=== PATIENT | male | born 1935 | race Caucasian/White ===

== ENCOUNTER → 2016-09-11 | Outpatient (CLI) | payer MEDICARE ==
[2016-06-11 22:29] VITALS: BP 143/73
[~2016-09-11] MED LIST: AMIO200T2 PO; ASPI81TA2 PO; Amoxicillin PO; CARV6.252 PO; CLOP75TA27 PO; CRESTOR20 MG PO; DABI150C PO; DIGO125T PO; EDOX60TA PO; FURO40TA4 PO; LOSA25TA4 PO; METF500T4 PO; METF850T2 PO; MULT1TAB49 PO; OMEG10004 PO; POTA20TA12 PO
--- NOTE | 2016-09-11 11:49 | KCIC ---
Chest PA and lateral Indication: Shortness of air. Time of exam 11:25 a.m. Comparison is made with prior chest from 06/11/2016. The heart is enlarged but stable. There are changes of median sternotomy and CABG. Cardiac defibrillator remains in place. There is central congestion. There is trace pleural fluid. No overt failure is seen. No pneumothorax is identified. Impression: Cardiomegaly and central congestion with trace bilateral pleural effusions. Electronically signed by: Hayder Fernández MD (Sep 11, 2016 11:47:37)
== END | disposition home or self-care (01) ==
LOC: KCIC 11:05
PROVIDERS: ATTEND Specialist
DX: R06.02 Shortness of breath (principal); Z82.49 Family history of ischemic heart disease and other diseases of the circulatory system; I51.7 Cardiomegaly; J90 Pleural effusion, not elsewhere classified
CPT/HCPCS: 71020

== ENCOUNTER 2017-01-23 10:58 | Inpatient (IN) | payer MEDICARE ==
[~2017-01-23] VITALS: Ht 167.6 cm; Wt 66.8 kg
[~2017-01-23 10:58] MED LIST changes: +ASPI-630 PO; -ASPI81TA2 PO; -CLOP75TA27 PO; +CLOP75TA57 PO; -OMEG10004 PO; +[UNRECOGNIZED DRUG - CODE] PO
[2017-01-23] MEDS: INSULIN ASPART 300 UNITS/3 ML INSULN.PEN SQ SCH ×2 (11:30→16:30)
[2017-01-23] MEDS ORDERED: 0.9 % SODIUM CHLORIDE 10 ML DISP.SYRIN. IV PRN (11:30)
[2017-01-23] MEDS ORDERED: FUROSEMIDE 40 MG/4 ML VIAL. IVP ONE ×2 (11:30→16:45)
[2017-01-23] MEDS ORDERED: MAGNESIUM HYDROXIDE 2,400 MG/30 ML ORAL.SUSP. PO PRN (11:30)
[2017-01-23] MEDS ORDERED: ACETAMINOPHEN 325 MG TABLET. PO PRN (11:30)
[2017-01-23 11:45] VITALS: BP 113/76
[2017-01-23] MEDS ORDERED: NITROGLYCERIN SUBLINGUAL 0.4 MG BOTTLE OF 25. SL PRN (11:45)
[2017-01-23] MEDS ORDERED: ANTI-COAG MONITOR BY PHARMACY. MC PRN (12:00)
[2017-01-23] MEDS ORDERED: NITR0.4T22 SL (12:10)
[2017-01-23] MEDS ORDERED: EDOX15TA PO (12:10)
[2017-01-23] MEDS ORDERED: APIX5TAB PO (12:10)
[2017-01-23] MEDS ORDERED: METO25TA9 PO (12:10)
[2017-01-23] MEDS ORDERED: MAGN400T22 PO (12:10)
[2017-01-23] MEDS ORDERED: METO2.5T PO (12:10)
[2017-01-23] MEDS ORDERED: SACU1TAB PO (12:10)
[2017-01-23] MEDS ORDERED: ASPI-482 PO (12:10)
[2017-01-23 12:22] LABS: BASO % 0 % (0-3); EOS % 0 % (0-3); HEMATOCRIT 34.3 % (39.0-53.0); HEMOGLOBIN 10.8 g/dL (13.0-17.5); LYMPH % 6 % (24-48); MEAN CORPUSCULAR HEMOGLOBIN 25 pg (25-35); MEAN CORPUSCULAR HGB CONC 32 g/dL (31-37); MEAN CORPUSCULAR VOLUME 80 fL (79-100); MONO % 5 % (0-9); NEUT % 88 % (31-73); PLATELET COUNT 293 x10^3/uL (140-400); RED BLOOD COUNT 4.28 x10^6/uL (4.30-5.70); RED CELL DISTRIBUTION WIDTH 20.3 % (11.5-14.5); WHITE BLOOD COUNT 15.5 x10^3/uL (4.0-11.0)
[2017-01-23] MEDS: MULTIVITAMIN with MINERAL TABLET. PO SCH (12:30)
[2017-01-23] MEDS ORDERED: CLOPIDOGREL BISULFATE 75 MG TABLET PO SCH (12:30)
[2017-01-23] MEDS: OMEGA-3 FATTY ACIDS/FISH OIL 1,000 MG CAPSULE. PO SCH (12:30)
[2017-01-23] MEDS ORDERED: APIXABAN 5 MG TABLET. PO SCH (12:30)
[2017-01-23] MEDS ORDERED: ASPIRIN ENTERIC COATED 81 MG TABLET.DR. PO SCH (12:30)
[2017-01-23] MEDS ORDERED: POTASSIUM CHLORIDE 20 MEQ TABLET.ER. PO SCH (12:30)
[2017-01-23] MEDS ORDERED: SACUBITRIL/VALSARTAN 24/26MG TABLET. PO SCH ×2 (12:30→21:00)
[2017-01-23 12:38] LABS: ALBUMIN 3.7 g/dL (3.4-5.0); ALBUMIN/GLOBULIN RATIO 0.9 (1.0-1.7); CALCIUM 9.8 mg/dL (8.5-10.1); CREATININE 4.4 mg/dL (0.7-1.3); MAGNESIUM 3.2 mg/dL (1.8-2.4); POTASSIUM 4.6 mmol/L (3.5-5.1); TOTAL BILIRUBIN 1.1 mg/dL (0.2-1.0); TOTAL PROTEIN 7.7 g/dL (6.4-8.2)
[2017-01-23 13:13] LABS: ANISOCYTOSIS MOD; PLT ESTIMATE ADEQUATE (ADEQUATE)
[2017-01-23] MEDS ORDERED: FUROSEMIDE 40 MG/4 ML VIAL. IVP SCH (14:00)
--- NOTE | 2017-01-23 14:08 | RAD ---
Indication shortness of breath. PA and lateral views of the chest were obtained and are compared to an examination 09/11/2016. Postoperative changes are noted. There is a bipolar defibrillating and cardiac pacing device. In contrast to the previous exam there is now a moderate right pleural effusion. There is unchanged cardiomegaly. An acute finding in the left hemithorax is not seen. IMPRESSION: Moderate right pleural effusion.
[2017-01-23 15:00] VITALS: BP 131/71
--- NOTE | 2017-01-23 15:32 | RAD ---
Indication acute renal failure. Grayscale imaging of the kidneys was performed. No similar imaging is available. The right kidney measures 12.1 x 4.8 x 5.1 cm. No hydronephrosis or mass is seen. The urinary bladder appears grossly normal. The left kidney measures 11.7 x 4.5 x 5.5 cm. No hydronephrosis or mass is seen. IMPRESSION: Normal morphologic appearance of the kidneys
--- NOTE | 2017-01-23 15:35 | PDOC ---
Provider Note Provider Note dictated needs right tap. needs to hold plavix and elliquis cannot do until saturday unless emergency BABATUNDE THEODORE MD Jan 23, 2017 15:35
[2017-01-23] MEDS: METOPROLOL SUCC 24HR ER 50 MG TAB.ER.24H. PO SCH (15:44)
--- NOTE | 2017-01-23 17:09 | CONS ---
DATE OF CONSULTATION: ATTENDING PHYSICIAN: Dr. Alfred Norris. REASON FOR CONSULTATION: Dyspnea and pleural effusion. HISTORY OF PRESENT ILLNESS: The patient is an 82-year-old male with history of severe cardiomyopathy with an EF of 10-15%. He has history of coronary artery bypass grafting, history of colon cancer and had chemo. The patient presented to the hospital with several months of increasing progressive shortness of breath, which worsened in the last 1 week. He has increasing lower extremity edema. He also has a cough with some mild blood-tinged sputum and yellow sputum. No fever, no chills. No chest pains. He was seen in the hospital with a chest x-ray showing moderate right-sided pleural effusion, which has increased since before along with cardiomegaly and congestive changes. As a result, he is hospitalized for further evaluation. He is requiring 2 liters of oxygen. PAST MEDICAL HISTORY: Significant for history of CAD, history of cardiomyopathy which is severe with an EF of 10-15%, history of dyslipidemia, VA, history of colon cancer, history of chemo. PAST SURGICAL HISTORY: Cholecystectomy, coronary artery bypass surgery, history of pacemaker defibrillator. REVIEW OF SYSTEMS: Twelve-point system obtained. Pertinent positives discussed in history of present illness, otherwise noncontributory. All systems that were negative were reviewed as well. SOCIAL HISTORY: Nonsmoker. Lives at home with family. MEDICATIONS: All reviewed as listed in the MRAD including his Plavix and Eliquis. PHYSICAL EXAMINATION: GENERAL: He is awake, resting comfortably. VITAL SIGNS: Blood pressure of 131/71, pulse ox 92% on 2 liters, afebrile. HEENT: Sclerae are nonicteric. NECK: Supple. LUNGS: Diminished breath sounds in the right base. CARDIOVASCULAR: Regular rate and rhythm. ABDOMEN: Soft, obese, distended. EXTREMITIES: Bilateral 2+ pitting edema. LABORATORY DATA: Reviewed. White cell count 15.5, hemoglobin 10.8, platelets are 293. BUN is 79 and a creatinine of 4.4. ProBNP is 14,308, bicarbonate is 25. IMPRESSION: 1. Acute hypoxic respiratory failure secondary to acute on chronic systolic heart failure and moderate-sized right pleural effusion. 2. 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 3. No significant history of tobacco use. 4. Acute on chronic renal failure. Suspect secondary to poor cardiac pump function. RECOMMENDATIONS: 1. Discussed with the patient and the family. He would benefit from thoracentesis. We will arrange to do CT-guided. He is on Eliquis and Plavix. I spoke with Interventional Radiology, and we have to hold Eliquis at least 48 hours and Plavix for at least 4 days. The patient's procedure will be scheduled on Saturday. 2. Follow Cardiology recommendations. 3. Follow renal recommendations. His urine output has decreased and may end up on dialysis. He has become refractory to Lasix. 4. He probably has acute bronchitis as well and I will add empiric antibiotics. 5. Further recommendations to follow. BABATUNDE THEODORE MD DR: GENOVEVA/chet JOB#: [id number] / [id number]
[2017-01-23] MEDS ORDERED: AZITHROMYCIN 250 MG TABLET. PO ONE (18:00)
[2017-01-23] MEDS: LINEZOLID 600 MG TABLET PO SCH (18:21)
[2017-01-23] MEDS: PIPERACILLIN/TAZOBACTAM 2.25 GM in IV NORMAL SALINE 50ML 50 ML IV SCH (18:21)
[2017-01-23 19:05] VITALS: BP 114/57
[2017-01-23] MEDS ORDERED: MAGNESIUM OXIDE 400 MG TABLET PO SCH (21:00)
[2017-01-23] MEDS ORDERED: ATORVASTATIN CALCIUM 40 MG TABLET. PO SCH (21:00)
[2017-01-23] MEDS: MONTELUKAST SODIUM 10 MG TABLET. PO SCH (21:13)
[2017-01-23 23:05] VITALS: BP 119/62
[2017-01-24] VITALS (13 sets, daily range): BP systolic 86–121; BP diastolic 57–63
[2017-01-24] MEDS: PIPERACILLIN/TAZOBACTAM 2.25 GM in IV NORMAL SALINE 50ML 50 ML IV SCH ×4 (01:26→21:23)
--- NOTE | 2017-01-24 05:19 | CONS ---
DATE OF CONSULTATION: 01/23/2017 HISTORY OF PRESENT ILLNESS: This is an 81-year-old white male who saw his primary care physician for shortness of breath. He appeared to be very short of breath despite extra Lasix. Also his creatinine had gone up. I last saw him in the office on 12/27/2016. At that time, he complained of no shortness of breath. He had no swelling of his legs. He had been taking the Lasix twice a day and metolazone 2.5 mg twice a week. He had also been on Entresto since 10/15/2016. I am quoting the BUN and creatinine done mostly in my office with [facility]. There is also one result from Dr. Norris's office. Thus I want to show that despite Entresto and the diuretics, his creatinine had been stable until recently. On 09/10/2016, BUN was 31, creatinine was 1.61. On 10/11/2016, BUN was 26, creatinine was 1.68. Entresto was initiated on 10/15/2016. On 11/07/2016, BUN was 33 and creatinine was 1.58. Recently on 12/27/2016, when I last saw him, having been on Entresto for 6 weeks and on metolazone for about 2 or 3 weeks, his BUN was 33 and creatinine was 1.72. I have not seen him in the last one month. I therefore do emphasize the point that he has taken a turn for the worse in the last one month. He is very short of breath. He has significant orthopnea and paroxysmal nocturnal dyspnea. He has had swelling of the legs that have been worse than what it was when he came in to the hospital and he had taken extra Lasix and the swelling has gone down. Thus for some reason, he has taken a turn for the worse. When he came in on 12/27/2016, he brought all of his medications and I wrote them down from the bottles he brought. It was as follows, 1. Atorvastatin 40 mg at night. 2. Metformin 850 mg twice a day, which since then has been discontinued. 3. Singulair 10 mg a day. 4. Plavix 75 mg a day, which was initiated in 10/2015 after he had a non-ST elevation myocardial infarction and the intention was to keep him on it for about a year. 5. Potassium chloride 20 mEq a day. Please note that the potassium has remained stable. 6. Magnesium oxide 400 mg twice a day. Please also note that the magnesium level has been alright. He has been getting the magnesium because he has had a few episodes of ventricular tachycardia on interrogating the pacemaker. 7. Furosemide 40 mg twice a day. 8. Carvedilol 3.125 mg twice a day. 9. Eliquis 5 mg twice a day. He is to have decreased this to 2.5 mg twice a day since he had turned 81 and since his creatinine was more than 1.5. Until then, he had only one criteria of the creatinine, not quite his age or his weight. 10. Metoprolol succinate ER 50 mg at night. 11. Amiodarone 200 mg a day for having been in and out of atrial fibrillation in 2016. 12. Aspirin 81 mg a day. 13. Entresto twice a day since 10/15/2016. 14. Chintan silva PAST MEDICAL HISTORY: To recapitulate his history until now, In 1982, he sustained an acute inferior wall myocardial infarction. He underwent coronary arteriograms. He was found to have triple vessel disease. He then underwent open heart surgery with vein graft to the LAD and the diagonal, vein graft to the OM and a vein graft to the right coronary artery. In 2010, he had done very well over about 20 years. He then came in with chest pain. He was found to have occluded vein graft to the LAD. He then underwent a second open heart surgery in 2010 at which time a DICKERSON was placed to the LAD to the diagonal. He has an EF, which had been normal in 1982, had dropped to 40% in 2010. In 2012, he came in with paroxysmal atrial tachycardia and underwent coronary arteriograms. The SVG to the right coronary artery was totally occluded and the vein graft to the right coronary artery was also totally occluded. His EF dropped further to 30%. In 10/2015, while he was at the [facility], he developed chest pain and sustained a non-ST segment elevation myocardial infarction with a troponin going up as high as 27. He underwent coronary arteriograms. I do not have the results of this. However, he was told that there was no lesion that was amenable to percutaneous intervention. He was also told that the EF dropped to 10-15% and he was advised AICD. He chose not to have the AICD there, but came back to [place]. On 12/05/2015, he underwent placement of an AICD. His QRS complexes were narrow and he was in sinus rhythm. In 04/2016, he underwent cardiac catheterization. The DICKERSON to the LAD was patent. The vein graft to the circumflex coronary artery was patent. The vein graft to the right coronary artery and the ____ coronary artery was totally occluded. His EF continued to be down at 15-20%. He had good collaterals from the left to the right. His BUN at that time was 22, creatinine was 1.2. In 05/2016, bedside pacemaker monitor picked up atrial fibrillation. I had him come to the office. He was very active then and had plans to go to the [facility], but reluctantly came to my office. I gave him samples of anticoagulation and I asked him to come back and see me after he returned. Thus he was very active in May 2016. In 08/2016, he went back to the [facility]. He said he went to [facility] and was able to walk up from the bottom of the alhambra to the top of the alhambra despite his low EF. 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 All of this has markedly changed in the last one month and is now a totally different person. He has had a cholecystectomy. He has had cancer of the colon and has undergone partial colectomy. He also received some chemotherapy, I believe, and of course he has had the two open heart surgeries as described above and placement of the AICD. When I checked in 12/2012, he had a normal QRS complex 60% of the times and a broad QRS complex only 40% of the times. Even though we considered placing a Bi-V pacemaker at that time, he was not yet a candidate for it. He lives at home. He has two very supportive daughters. His has severe Alzheimer's and resides in a alf. He had been going there regularly every afternoon or evening to give her her lunch and dinner. As far as his diet goes, he has not always been compliant. We talked to him several times about his salt restriction, but lately he has been quite compliant. He was not prior to that. However, he did admit that he had a fairly high salt diet recently. He does not smoke or take alcohol. The medication list that he brought is somewhat similar to what he had brought to my office. However, there are some discrepancies in the medication list given during this hospitalization. When I saw him on 12/27/2016, it was from his bottles. He has been seeing Dr. Norris. Dr. Norris has probably made some changes in between namely discontinuing the metformin that he needed to, discontinuing the Entresto that I totally agree with. The patient has been saying that he has been having visual hallucinations. He reaches out for things that are not present and certainly not within his reach. He has had no auditory hallucinations. Even when he came in December, he had indicated to me that he is very restless at night and does not sleep well. At that time, he said that his inability to sleep was not due to orthopnea, but due to other reasons. He says he has had nocturnal desaturation study done at home, but he does not know the results. PHYSICAL EXAMINATION: GENERAL: On examination, he is obviously short of breath and tachypneic. Normally, he is very conversant, but he was not talking much. VITAL SIGNS: The heart rate was 70 per minute and regular. The blood pressure is 110/70. LUNGS: Showed decreased breath sounds on the right side. There is no wheezing. HEART: The heart sounds are normal. There is no murmur or gallop. ABDOMEN: Mildly distended. There is no right upper quadrant tenderness. There were no masses. EXTREMITIES: Of note is the fact that is for the first time I see such significant 3-4+ pitting edema of his feet and leg and into his thigh. Chest x-ray showed pulmonary vascular congestion and at least a moderate sized right pleural effusion. The last chest x-ray which was in 08/2016 had shown some central congestion and just a trace pleural effusion. Thus, this is a significant change from before. An EKG has not been done ____. On the monitor, he is in sinus rhythm with a wide QRS complex and he appears to be in a wide QRS complex 100% of the time as opposed to 40% in 12/2016. Thus, as I stated above, there has been a dramatic change in his status since 12/2015. The chronic combined congestive heart failure that he has had has now become acute in the last 2 or 3 weeks. He had an EF of 10-15% with his last echocardiogram and grade 3 diastolic dysfunction in the last echocardiogram. There was also moderate mitral regurgitation. IMPRESSION AND PLAN: 1. Acute on chronic congestive heart failure since the last one month, etiology unclear. Consider pneumonia as one of the precipitating cause because of his leukocytosis and he has already been started on antibiotics by the flame degreaser. Pulmonary embolism is probably unlikely because of the fact that he has been taking his anticoagulants, though he does get confused and there was a period of time in December that he had failed to refill his prescription. We will thus obtain a venous Doppler. Myocardial ischemia is a possibility. The coronary arteriogram is totally out of the question because of his creatinine of 4.4. With his low EF and known severe coronary artery disease, myocardial perfusion imaging study with technetium would probably be of little benefit. Doing a SPECT for myocardial ischemia may be more sensitive, but we do not have the facility to do that. 2. Worsening renal failure of recent onset, could be due to the lower cardiac output than before. We will check an echocardiogram to see what his EF is at the present time and also check his cardiac output. 3. Metabolic encephalopathy with visual hallucinations probably due to the low cardiac output. 4. History of atrial fibrillation, now in sinus rhythm. 5. He appears to be 100% paced at the present time. We will have interrogate his pacemaker to see what is the percentage of the ventricular pacing and we will also know what is his atrial fibrillation burden. 6. Possible pulmonary infection. PLAN: 1. Obtain an echocardiogram tomorrow. He will be evaluated by Nephrology. His renal sonogram was not significantly abnormal. There is also no significant urinary retention and I do not believe he has been taking NSAIDs though with his mental status and his memory being poor, I cannot quite rely on what he remembers. 2. Has been seen by flame degreaser and antibiotics have been initiated. Also arrangements have been made for him to have a thoracentesis on 01/28/2017. The Eliquis and the Plavix can certainly be held as also the aspirin. 3. After measuring the EF and the cardiac output, he will be started on inotropic agent in the form of dobutamine to see whether diuresis can be accomplished without a significant increase in his BUN and creatinine. 4. He certainly now qualifies for upgrade to a Bi-V AICD. Dr. Levy has agreed to do it and he may be able to do it on 01/25/2017. I have talked to the family. I have informed them that there has been a significant deterioration in his condition and there probably will not be a simple answer as before of a quick IV diuresis and sending him home. He might have come to the point of considering an LVAD. I am not sure whether he would be accepted for it. He would need a lot of support to be able to go home with the LVAD and I do not think he can manage it with his mental status and him living alone. I do believe he is not a good candidate for the LVAD. However, we would be able to manage his status by closer surveillance with home health the monitoring his CHF and medications. Thank you for asking me to see him. MELINDA FORTUNE MD DR: [email or web address]/chet JOB#: [id number] / [id number]
[2017-01-24 05:44] LABS: BASO # 0.1 x10^3/uL (0.0-0.2); BASO % 1 % (0-3); EOS % 0 % (0-3); HEMATOCRIT 31.6 % (39.0-53.0); HEMOGLOBIN 10.2 g/dL (13.0-17.5); LYMPH # 0.8 x10^3/uL (1.0-4.8); LYMPH % 6 % (24-48); MEAN CORPUSCULAR HEMOGLOBIN 26 pg (25-35); MEAN CORPUSCULAR HGB CONC 32 g/dL (31-37); MEAN CORPUSCULAR VOLUME 80 fL (79-100); MONO % 5 % (0-9); NEUT % 89 % (31-73); PLATELET COUNT 258 x10^3/uL (140-400); RED BLOOD COUNT 3.94 x10^6/uL (4.30-5.70); RED CELL DISTRIBUTION WIDTH 19.9 % (11.5-14.5); WHITE BLOOD COUNT 12.9 x10^3/uL (4.0-11.0)
[2017-01-24 06:12] LABS: CALCIUM 9.5 mg/dL (8.5-10.1); CREATININE 5.1 mg/dL (0.7-1.3); POTASSIUM 5.8 mmol/L (3.5-5.1)
--- NOTE | 2017-01-24 06:24 | EKG ---
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 ABNORMAL ECG RI6.01 Electronically Signed On 01-28-2017 9:45:08 CDT by Kayode Eastman
[2017-01-24] MEDS ORDERED: CLOPIDOGREL BISULFATE 75 MG TABLET PO SCH (08:00)
--- NOTE | 2017-01-24 08:24 | PDOC ---
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 ARF WILNER ATN diuretics with underlying CKD II 3. R moderate pleural effusion 4. metabolic encephalopathy 5. leukocytosis w/o fever 6. Coronary artery disease. with h/o stent/CABG 7. History of myocardial infarction.>8wk 7. Hyperlipidemia. 8. History of colon cancer with colon resection. 9. Diabetes mellitus type 2, not controlled. poor compliance with diet 10. AFchronic eliquis AICD 11. mod MR 12. HTN 13. hyperkalemia PLAN: a/c CHF Lasix 40mg IV x1 cardiology consult daily wt IO admit wt not obtained 01/24 154.4# BNP 74679 edema LE-venous doppler report pending ARF WILNER ATN nephrology consult renal US negative Admit Na 137 01/24 136 K 4.6 5.8 BUN 79 96 Cr 4.4 5.1 Mg 3.2 Procalcitonin 0.23 may need dialysis KCL and Mg replacements stopped Dyspnea multifactorial pulmonary consult Acute bronchitis pleural effusion-thoracentesis planned -eliquis needs held for 48h prior to procedure WBC 15.5 01/24 12.9 ID consult empiric antibiotics: zithromax x1, zosyn IV , Zyvox po. nebulizer treatments abnormal TSH acute illness-re eval OP in 2-3 months AF Eliquis stopped prior to thoracentesis-resume post procedure CAD ASA and Plavix discontinued-resume post procedure metabolic encephalopathy monitor DVT/GI prophylaxis SCD/ELEUTERIO PPI For further plan of care, please refer to the orders. TOM FOSTER MD 01/24/17 1054: Provider Note Provider Note The patient was seen and examined by me. Chart reviewed and plan of care formulated. Discussed with, reviewed and agree with [employer]'s notes, plan of care and orders with modifications as necessary. For more details regarding further plans, please refer to the orders. D/w patient,.Will need dialysis. NEVA LOONEY APRN Jan 24, 2017 08:24 TOM FOSTER MD Jan 24, 2017 10:54
[2017-01-24] MEDS: MULTIVITAMIN with MINERAL TABLET. PO SCH (09:01)
[2017-01-24] MEDS: OMEGA-3 FATTY ACIDS/FISH OIL 1,000 MG CAPSULE. PO SCH (09:02)
[2017-01-24] MEDS: METOPROLOL SUCC 24HR ER 50 MG TAB.ER.24H. PO SCH (09:02)
[2017-01-24] MEDS: LINEZOLID 600 MG TABLET PO SCH ×2 (09:02→21:21)
[2017-01-24] MEDS: INSULIN ASPART 300 UNITS/3 ML INSULN.PEN SQ SCH ×3 (09:05→16:30)
--- NOTE | 2017-01-24 09:09 | RAD ---
Bilateral lower extremity venous duplex study 01/24/2017 Clinical history: Bilateral leg swelling. Technique: Using a combination of real time ultrasound imaging and color-flow and pulse Doppler imaging techniques along with graded compression and augmentation, duplex evaluation of the deep venous system of the both lower extremities was performed. Multiple images were obtained. Findings: There is no sonographic evidence of deep venous thrombosis involving the visualized deep venous structures of either lower extremity. Impression: Negative study.
--- NOTE | 2017-01-24 11:46 | PDOC2 ---
CONSULT Date of Consult Date of Consult DATE: 01/24/17 TIME: 11:38 Reason for Consult Reason for Consult: WILNER Referring Physician Referring Physician: CRISTIAN Identification/Chief Complaint Chief Complaint SOB AND SWELLING Problems: Source Source: Chart review, Patient History of Present Illness Reason for Visit: THIS IS AN 81 YR OLD ADMITTED WITH SOB AND LE EDEMA WHICH HAS BEEN PROGRESSIVE. CR IS 5.1 WITH A K OF 5.8. OLD RECORDS SHOWED A CR OF 1.5-2.0 FROM EARLIER THIS YEAR. 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 HX NOTABLE FOR CM WITH AN EF OF 10-15% AND SEVERE CAD. HE ALSO HAS A PPM. DENIED ANY KNOWLEDGE OF CKD. NO HX OF ANY KIDNEY OR BLADDER SURGERIES HEMATURIA DYSURIA NOTED. NO SIGNIFICANT NSAID ABUSE HX. HE HAS SOME FREQUENCY AND NOCTURIA TWICE OR THRICE Past Medical History Cardiovascular: CAD, CHF, HTN, NH, Hyperlipidemia Renal/: Chronic renal insuff Endocrine: Diabetes Past Surgical History Past Surgical History: Cholecystectomy, Colon Resection Current Medications Current Medications Current Medications Sodium Chloride (Normal Saline Flush) 3 ml PRN DAILY PRN IV AFTER MEDS AND BLOOD DRAWS; Start 01/23/17 at 11:30 Acetaminophen (Tylenol) 650 mg PRN Q6HRS PRN PO Headaches, Temp > 101.5F; Start 01/23/17 at 11:30 Magnesium Hydroxide (Milk Of Magnesia) 2,400 mg PRN Q12HR PRN PO CONSTIPATION; Start 01/23/17 at 11:30 Furosemide (Lasix) 40 mg BID92 IVP ; Start 01/23/17 at 14:00; Stop 01/23/17 at 14: 35; Status DC Insulin Aspart (NovoLOG) TIDAC SQ Last administered on 01/24/17 09:05; Start 01/23/17 at 11:30 Furosemide (Lasix) 40 mg 1X ONCE IVP ; Start 01/23/17 at 11:30; Stop 01/23/17 at 14:35; Status DC Clopidogrel Bisulfate (Plavix) 75 mg DAILY PO ; Start 01/23/17 at 12:30; Stop 01/23/17 at 20:26; Status DC Potassium Chloride (Klor-Con) 20 meq DAILY PO Last administered on 01/23/17 15: 45; Start 01/23/17 at 12:30; Stop 01/24/17 at 08:19; Status DC Fish Oil (Fish Oil) 1,000 mg DAILY PO Last administered on 01/24/17 09:02; Start 01/23/17 at 12:30 Atorvastatin Calcium (Lipitor) 80 mg QHS PO Last administered on 01/23/17 21:12 ; Start 01/23/17 at 21:00; Stop 01/24/17 at 08:19; Status DC Clopidogrel Bisulfate (Plavix) 75 mg DAILYWBKFT PO ; Start 01/24/17 at 08:00; Status UNV Apixaban (Eliquis) 5 mg BID PO ; Start 01/23/17 at 12:30; Stop 01/23/17 at 20:26; Status DC Metoprolol Succinate (Toprol Xl) 50 mg DAILY PO Last administered on 01/24/17 09:02; Start 01/23/17 at 12:30 Montelukast Sodium (Singulair) 10 mg QHS PO Last administered on 01/23/17 21:13 ; Start 01/23/17 at 21:00 Nitroglycerin (Nitrostat) 0.4 mg PRN Q5MIN PRN SL CHEST PAIN; Start 01/23/17 at 11:45 Magnesium Oxide (Magnesium Oxide) 400 mg BID PO Last administered on 01/23/17 21:00; Start 01/23/17 at 21:00; Stop 01/24/17 at 08:19; Status DC Aspirin (Ecotrin) 81 mg DAILYWBKFT PO ; Start 01/23/17 at 12:30; Stop 01/23/17 at 20:26; Status DC Multivitamins (Thera M Plus) 1 tab DAILY PO Last administered on 01/24/17 09: 01; Start 01/23/17 at 12:30 Sacubitril/ Valsartan (Entresto 24 Mg-26 Mg) 1 tab BID PO ; Start 01/23/17 at 12: 30; Stop 01/23/17 at 14:35; Status DC Info (Anti-Coagulation Monitoring By Pharmacy) 1 each PRN DAILY PRN MC SEE COMMENTS; Start 01/23/17 at 12:00; Stop 01/23/17 at 20:26; Status DC Sacubitril/ Valsartan (Entresto 24 Mg-26 Mg) 1 tab BID PO ; Start 01/23/17 at 21: 00; Status UNV Furosemide (Lasix) 40 mg 1X ONCE IVP Last administered on 01/23/17 16:45; Start 01/23/17 at 16:45; Stop 01/23/17 at 16:46; Status DC Piperacillin Sod/ Tazobactam Sod 2.25 gm/Sodium Chloride 50 ml @ 100 mls/hr Q8HRS IV Last administered on 01/24/17 06:20; Start 01/23/17 at 18:00 Linezolid (Zyvox) 600 mg BID PO Last administered on 01/24/17 09:02; Start 01/23/17 at 18:30 Azithromycin (Zithromax) 500 mg 1X ONCE PO Last administered on 01/23/17 18:21 ; Start 01/23/17 at 18:00; Stop 01/23/17 at 18:01; Status DC Atorvastatin Calcium (Lipitor) 40 mg QHS PO ; Start 01/24/17 at 21:00 Active Scripts Active Amiodarone Hcl 200 Mg Tablet 200 Mg PO TID Reported Metolazone 2.5 Mg Tablet 2.5 Mg PO SATURDAY -SATURDAY PRN Entresto 24 mg-26 mg Tablet (Sacubitril/Valsartan) 1 Each Tablet 1 Each PO BID Aspir 81 (Aspirin) 81 Mg Tablet.dr 81 Mg PO Mag-Oxide (Magnesium Oxide) 400 Mg Tablet 1 Tab PO BID NITROGLYCERIN SubLingual (Nitroglycerin) 0.4 Mg Tab.subl 0.4 Mg SL PRN Q5MIN PRN Metoprolol Succinate ( Xl ) (Metoprolol Succinate) 25 Mg Tab.er.24h 50 Mg PO DAILY Eliquis (Apixaban) 5 Mg Tablet 5 Mg PO BID Savaysa (Edoxaban Tosylate) 60 Mg Tablet 60 Mg PO QHS [place]-3 Fish Oil 1,000 Mg Sfgl ([place]-3/Dha/Epa/Fish Oil) 1,000 Mg Capsule 1, 000 Mg PO DAILY Metformin Hcl 850 Mg Tablet 850 Mg PO BIDWMEALS Plavix (Clopidogrel Bisulfate) 75 Mg Tablet 75 Mg PO DAILY Crestor (Rosuvastatin Calcium) 20 Mg Tablet 20 Mg PO HS Losartan Potassium 25 Mg Tablet 50 Mg PO DAILY Furosemide 40 Mg Tablet 40 Mg PO DAILY Potassium Chloride 20 Meq Tab.er.prt 20 Meq PO DAILY Allergies Allergies: Coded Allergies: No Known Drug Allergies (Unverified , 07/05/15) ROS General: YES: Fatigue, Malaise, Appetite PSYCHOLOGICAL ROS: YES: Anxiety Eyes: Yes Decreased vision HEENT: YES: Heacaches Respiratory: YES: Cough, Orthopnea, Shortness of breath, SOB with excertion Cardiovascular: yes Edema Gastrointestinal: Yes Constipation Genitourinary: YES Frequency, YES Other (NOCTURIA) Musculoskeletal: Yes Muscular Weakness Neurological: Yes Weakness Skin: Yes Dry Skin, Yes Skin Lesion Changes Physical Exam General: Alert, Oriented X3, Cooperative, No acute distress HEENT: Atraumatic, PERRLA Lungs: Other (DECREASED AT BASES) Heart: Gallops, Other (PACED ) Abdomen: Normal bowel sounds, Soft, No tenderness Extremities: No clubbing, No edema Neuro: Normal speech, Sensation intact, Cranial nerves 3-12 NL Psych/Mental Status: Mental status NL, Mood NL MUSCULOSKELETAL: No deformity, Other (2+ LE EDEMA) Vitals VITALS Vital Signs Date Time Temp Pulse Resp B/P (MAP) Pulse Ox O2 Delivery O2 Flow Rate FiO2 01/24/17 11:00 97.8 62 20 97/58 (71) 94 Room Air 97.8 01/24/17 08:09 2.0 Labs Labs Laboratory Tests Test 01/23/17 12:05 01/23/17 12:26 01/23/17 17:35 01/23/17 20:40 White Blood Count 15.5 x10^3/uL (4.0-11.0) Red Blood Count 4.28 x10^6/uL (4.30-5.70) Hemoglobin 10.8 g/dL (13.0-17.5) Hematocrit 34.3 % (39.0-53.0) Mean Corpuscular Volume 80 fL (79-100) Mean Corpuscular Hemoglobin 25 pg (25-35) Mean Corpuscular Hemoglobin Concent 32 g/dL (31-37) Red Cell Distribution Width 20.3 % (11.5-14.5) Platelet Count 293 x10^3/uL (140-400) Neutrophils (%) (Auto) 88 % (31-73) Lymphocytes (%) (Auto) 6 % (24-48) Monocytes (%) (Auto) 5 % (0-9) Eosinophils (%) (Auto) 0 % (0-3) Basophils (%) (Auto) 0 % (0-3) Neutrophils # (Auto) 13.6 x10^3uL (1.8-7.7) Lymphocytes # (Auto) 1.0 x10^3/uL (1.0-4.8) Monocytes # (Auto) 0.8 x10^3/uL (0.0-1.1) Eosinophils # (Auto) 0.0 x10^3/uL (0.0-0.7) Basophils # (Auto) 0.0 x10^3/uL (0.0-0.2) Segmented Neutrophils % 94 % (35-66) Lymphocytes % 3 % (24-48) Monocytes % 3 % (0-10) Platelet Estimate Adequate (ADEQUATE) Anisocytosis Mod Sodium Level 137 mmol/L (136-145) Potassium Level 4.6 mmol/L (3.5-5.1) Chloride Level 96 mmol/L (98-107) Carbon Dioxide Level 25 mmol/L (21-32) Anion Gap 16 (6-14) Blood Urea Nitrogen 79 mg/dL (8-26) Creatinine 4.4 mg/dL (0.7-1.3) Estimated GFR (Cockcroft-Gault) 13.0 BUN/Creatinine Ratio 18 (6-20) Glucose Level 133 mg/dL (70-99) Calcium Level 9.8 mg/dL (8.5-10.1) Magnesium Level 3.2 mg/dL (1.8-2.4) Total Bilirubin 1.1 mg/dL (0.2-1.0) Aspartate Amino Transf (AST/SGOT) 14 U/L (15-37) Alanine Aminotransferase (ALT/SGPT) 19 U/L (16-63) Alkaline Phosphatase 98 U/L (46-116) EP-Bfa-A-Type Natriuretic Peptide 02349 pg/mL (0-449) Total Protein 7.7 g/dL (6.4-8.2) Albumin 3.7 g/dL (3.4-5.0) Albumin/Globulin Ratio 0.9 (1.0-1.7) Procalcitonin 0.23 ng/mL (0.00-0.10) Glucose (Fingerstick) 122 mg/dL (70-99) 175 mg/dL (70-99) 186 mg/dL (70-99) Test 01/24/17 05:30 01/24/17 08:59 White Blood Count 12.9 x10^3/uL (4.0-11.0) Red Blood Count 3.94 x10^6/uL (4.30-5.70) Hemoglobin 10.2 g/dL (13.0-17.5) Hematocrit 31.6 % (39.0-53.0) Mean Corpuscular Volume 80 fL (79-100) Mean Corpuscular Hemoglobin 26 pg (25-35) Mean Corpuscular Hemoglobin Concent 32 g/dL (31-37) Red Cell Distribution Width 19.9 % (11.5-14.5) Platelet Count 258 x10^3/uL (140-400) Neutrophils (%) (Auto) 89 % (31-73) Lymphocytes (%) (Auto) 6 % (24-48) Monocytes (%) (Auto) 5 % (0-9) Eosinophils (%) (Auto) 0 % (0-3) Basophils (%) (Auto) 1 % (0-3) Neutrophils # (Auto) 11.5 x10^3uL (1.8-7.7) Lymphocytes # (Auto) 0.8 x10^3/uL (1.0-4.8) Monocytes # (Auto) 0.6 x10^3/uL (0.0-1.1) Eosinophils # (Auto) 0.0 x10^3/uL (0.0-0.7) Basophils # (Auto) 0.1 x10^3/uL (0.0-0.2) Sodium Level 136 mmol/L (136-145) Potassium Level 5.8 mmol/L (3.5-5.1) Chloride Level 96 mmol/L (98-107) Carbon Dioxide Level 25 mmol/L (21-32) Anion Gap 15 (6-14) Blood Urea Nitrogen 96 mg/dL (8-26) Creatinine 5.1 mg/dL (0.7-1.3) Estimated GFR (Cockcroft-Gault) 11.0 Glucose Level 160 mg/dL (70-99) Calcium Level 9.5 mg/dL (8.5-10.1) Triglycerides Level 98 mg/dL (0-150) Cholesterol Level 77 mg/dL (0-200) LDL Cholesterol, Calculated 31 mg/dL (0-100) VLDL Cholesterol, Calculated 20 mg/dL (0-40) Non-HDL Cholesterol Calculated 51 mg/dL (0-129) HDL Cholesterol 26 mg/dL (40-60) Cholesterol/HDL Ratio 3.0 Thyroid Stimulating Hormone (TSH) 5.398 uIU/mL (0.358-3.74) Glucose (Fingerstick) 168 mg/dL (70-99) Laboratory Tests Test 01/23/17 12:05 01/23/17 12:26 01/23/17 17:35 01/23/17 20:40 White Blood Count 15.5 x10^3/uL (4.0-11.0) Red Blood Count 4.28 x10^6/uL (4.30-5.70) Hemoglobin 10.8 g/dL (13.0-17.5) Hematocrit 34.3 % (39.0-53.0) Mean Corpuscular Volume 80 fL (79-100) Mean Corpuscular Hemoglobin 25 pg (25-35) Mean Corpuscular Hemoglobin Concent 32 g/dL (31-37) Red Cell Distribution Width 20.3 % (11.5-14.5) Platelet Count 293 x10^3/uL (140-400) Neutrophils (%) (Auto) 88 % (31-73) Lymphocytes (%) (Auto) 6 % (24-48) Monocytes (%) (Auto) 5 % (0-9) Eosinophils (%) (Auto) 0 % (0-3) Basophils (%) (Auto) 0 % (0-3) Neutrophils # (Auto) 13.6 x10^3uL (1.8-7.7) Lymphocytes # (Auto) 1.0 x10^3/uL (1.0-4.8) Monocytes # (Auto) 0.8 x10^3/uL (0.0-1.1) Eosinophils # (Auto) 0.0 x10^3/uL (0.0-0.7) Basophils # (Auto) 0.0 x10^3/uL (0.0-0.2) Segmented Neutrophils % 94 % (35-66) Lymphocytes % 3 % (24-48) Monocytes % 3 % (0-10) Platelet Estimate Adequate (ADEQUATE) Anisocytosis Mod Sodium Level 137 mmol/L (136-145) Potassium Level 4.6 mmol/L (3.5-5.1) Chloride Level 96 mmol/L (98-107) Carbon Dioxide Level 25 mmol/L (21-32) Anion Gap 16 (6-14) Blood Urea Nitrogen 79 mg/dL (8-26) Creatinine 4.4 mg/dL (0.7-1.3) Estimated GFR (Cockcroft-Gault) 13.0 BUN/Creatinine Ratio 18 (6-20) Glucose Level 133 mg/dL (70-99) Calcium Level 9.8 mg/dL (8.5-10.1) Magnesium Level 3.2 mg/dL (1.8-2.4) Total Bilirubin 1.1 mg/dL (0.2-1.0) Aspartate Amino Transf (AST/SGOT) 14 U/L (15-37) Alanine Aminotransferase (ALT/SGPT) 19 U/L (16-63) Alkaline Phosphatase 98 U/L (46-116) SH-Fjh-D-Type Natriuretic Peptide 47467 pg/mL (0-449) Total Protein 7.7 g/dL (6.4-8.2) Albumin 3.7 g/dL (3.4-5.0) Albumin/Globulin Ratio 0.9 (1.0-1.7) Procalcitonin 0.23 ng/mL (0.00-0.10) Glucose (Fingerstick) 122 mg/dL (70-99) 175 mg/dL (70-99) 186 mg/dL (70-99) Test 01/24/17 05:30 01/24/17 08:59 White Blood Count 12.9 x10^3/uL (4.0-11.0) Red Blood Count 3.94 x10^6/uL (4.30-5.70) Hemoglobin 10.2 g/dL (13.0-17.5) Hematocrit 31.6 % (39.0-53.0) Mean Corpuscular Volume 80 fL (79-100) Mean Corpuscular Hemoglobin 26 pg (25-35) Mean Corpuscular Hemoglobin Concent 32 g/dL (31-37) Red Cell Distribution Width 19.9 % (11.5-14.5) Platelet Count 258 x10^3/uL (140-400) Neutrophils (%) (Auto) 89 % (31-73) Lymphocytes (%) (Auto) 6 % (24-48) Monocytes (%) (Auto) 5 % (0-9) Eosinophils (%) (Auto) 0 % (0-3) Basophils (%) (Auto) 1 % (0-3) Neutrophils # (Auto) 11.5 x10^3uL (1.8-7.7) Lymphocytes # (Auto) 0.8 x10^3/uL (1.0-4.8) Monocytes # (Auto) 0.6 x10^3/uL (0.0-1.1) Eosinophils # (Auto) 0.0 x10^3/uL (0.0-0.7) Basophils # (Auto) 0.1 x10^3/uL (0.0-0.2) Sodium Level 136 mmol/L (136-145) Potassium Level 5.8 mmol/L (3.5-5.1) Chloride Level 96 mmol/L (98-107) Carbon Dioxide Level 25 mmol/L (21-32) Anion Gap 15 (6-14) Blood Urea Nitrogen 96 mg/dL (8-26) Creatinine 5.1 mg/dL (0.7-1.3) Estimated GFR (Cockcroft-Gault) 11.0 Glucose Level 160 mg/dL (70-99) Calcium Level 9.5 mg/dL (8.5-10.1) Triglycerides Level 98 mg/dL (0-150) Cholesterol Level 77 mg/dL (0-200) LDL Cholesterol, Calculated 31 mg/dL (0-100) VLDL Cholesterol, Calculated 20 mg/dL (0-40) Non-HDL Cholesterol Calculated 51 mg/dL (0-129) HDL Cholesterol 26 mg/dL (40-60) Cholesterol/HDL Ratio 3.0 Thyroid Stimulating Hormone (TSH) 5.398 uIU/mL (0.358-3.74) Glucose (Fingerstick) 168 mg/dL (70-99) Assessment/Plan Assessment/Plan IMP WILNER-ATN-DUE TO DECREASE IN RBF HYPERKALEMIA CKD-PROB STAGE 3 OR 4 SEVERE CM WITH EF OF 10-15% SEVERE CAD HX WITH PPM IN PLACE ACUTE ON CHRONIC SYSTOLIC CHF LEUCOCYTOSIS ANEMIA EDEMA DM II PLAN WOULD BENEFIT FROM AN IONOTROPIC AGENT BUT FOR NOW WILL NEED TO START DIALYSIS ONCE HEMODYNAMICALLY STABLE WILL CONSIDER DIURESING AGREE WITH HOLDING ENTRESTO AND METFORMIN FOR NOW ON ANTIBIOTICS HAVE D/W DR FOSTER AND DR FORTUNE RESIDENTIAL PROGNOSIS IS POOR JETT SHIELDS MD Jan 24, 2017 11:46
--- NOTE | 2017-01-24 12:15 | PDOC ---
PULMONARY PROGRESS NOTES Subjective no change Vitals Vital Signs Date Time Temp Pulse Resp B/P (MAP) Pulse Ox O2 Delivery O2 Flow Rate FiO2 01/24/17 11:00 97.8 62 20 97/58 (71) 94 Room Air 97.8 01/24/17 08:09 2.0 General: Alert, No acute distress Lungs: Other (decrease bs Right base) Cardiovascular: S1 Abdomen: Soft Neuro Exam: Alert Extremities: Other (2+edema) Labs Laboratory Tests Test 01/23/17 12:05 01/23/17 12:26 01/23/17 17:35 01/23/17 20:40 White Blood Count 15.5 x10^3/uL (4.0-11.0) Red Blood Count 4.28 x10^6/uL (4.30-5.70) Hemoglobin 10.8 g/dL (13.0-17.5) Hematocrit 34.3 % (39.0-53.0) Mean Corpuscular Volume 80 fL (79-100) Mean Corpuscular Hemoglobin 25 pg (25-35) Mean Corpuscular Hemoglobin Concent 32 g/dL (31-37) Red Cell Distribution Width 20.3 % (11.5-14.5) Platelet Count 293 x10^3/uL (140-400) Neutrophils (%) (Auto) 88 % (31-73) Lymphocytes (%) (Auto) 6 % (24-48) Monocytes (%) (Auto) 5 % (0-9) Eosinophils (%) (Auto) 0 % (0-3) Basophils (%) (Auto) 0 % (0-3) Neutrophils # (Auto) 13.6 x10^3uL (1.8-7.7) Lymphocytes # (Auto) 1.0 x10^3/uL (1.0-4.8) Monocytes # (Auto) 0.8 x10^3/uL (0.0-1.1) Eosinophils # (Auto) 0.0 x10^3/uL (0.0-0.7) Basophils # (Auto) 0.0 x10^3/uL (0.0-0.2) Segmented Neutrophils % 94 % (35-66) Lymphocytes % 3 % (24-48) Monocytes % 3 % (0-10) Platelet Estimate Adequate (ADEQUATE) Anisocytosis Mod Sodium Level 137 mmol/L (136-145) Potassium Level 4.6 mmol/L (3.5-5.1) Chloride Level 96 mmol/L (98-107) Carbon Dioxide Level 25 mmol/L (21-32) Anion Gap 16 (6-14) Blood Urea Nitrogen 79 mg/dL (8-26) Creatinine 4.4 mg/dL (0.7-1.3) Estimated GFR (Cockcroft-Gault) 13.0 BUN/Creatinine Ratio 18 (6-20) Glucose Level 133 mg/dL (70-99) Calcium Level 9.8 mg/dL (8.5-10.1) Magnesium Level 3.2 mg/dL (1.8-2.4) Total Bilirubin 1.1 mg/dL (0.2-1.0) Aspartate Amino Transf (AST/SGOT) 14 U/L (15-37) Alanine Aminotransferase (ALT/SGPT) 19 U/L (16-63) Alkaline Phosphatase 98 U/L (46-116) JK-Jgk-W-Type Natriuretic Peptide 56090 pg/mL (0-449) Total Protein 7.7 g/dL (6.4-8.2) Albumin 3.7 g/dL (3.4-5.0) Albumin/Globulin Ratio 0.9 (1.0-1.7) Procalcitonin 0.23 ng/mL (0.00-0.10) Glucose (Fingerstick) 122 mg/dL (70-99) 175 mg/dL (70-99) 186 mg/dL (70-99) Test 01/24/17 05:30 01/24/17 08:59 01/24/17 11:39 White Blood Count 12.9 x10^3/uL (4.0-11.0) Red Blood Count 3.94 x10^6/uL (4.30-5.70) Hemoglobin 10.2 g/dL (13.0-17.5) Hematocrit 31.6 % (39.0-53.0) Mean Corpuscular Volume 80 fL (79-100) Mean Corpuscular Hemoglobin 26 pg (25-35) Mean Corpuscular Hemoglobin Concent 32 g/dL (31-37) Red Cell Distribution Width 19.9 % (11.5-14.5) Platelet Count 258 x10^3/uL (140-400) Neutrophils (%) (Auto) 89 % (31-73) Lymphocytes (%) (Auto) 6 % (24-48) Monocytes (%) (Auto) 5 % (0-9) Eosinophils (%) (Auto) 0 % (0-3) Basophils (%) (Auto) 1 % (0-3) Neutrophils # (Auto) 11.5 x10^3uL (1.8-7.7) Lymphocytes # (Auto) 0.8 x10^3/uL (1.0-4.8) Monocytes # (Auto) 0.6 x10^3/uL (0.0-1.1) Eosinophils # (Auto) 0.0 x10^3/uL (0.0-0.7) Basophils # (Auto) 0.1 x10^3/uL (0.0-0.2) Sodium Level 136 mmol/L (136-145) Potassium Level 5.8 mmol/L (3.5-5.1) Chloride Level 96 mmol/L (98-107) Carbon Dioxide Level 25 mmol/L (21-32) Anion Gap 15 (6-14) Blood Urea Nitrogen 96 mg/dL (8-26) Creatinine 5.1 mg/dL (0.7-1.3) Estimated GFR (Cockcroft-Gault) 11.0 Glucose Level 160 mg/dL (70-99) Calcium Level 9.5 mg/dL (8.5-10.1) Triglycerides Level 98 mg/dL (0-150) Cholesterol Level 77 mg/dL (0-200) LDL Cholesterol, Calculated 31 mg/dL (0-100) VLDL Cholesterol, Calculated 20 mg/dL (0-40) Non-HDL Cholesterol Calculated 51 mg/dL (0-129) HDL Cholesterol 26 mg/dL (40-60) Cholesterol/HDL Ratio 3.0 Thyroid Stimulating Hormone (TSH) 5.398 uIU/mL (0.358-3.74) Glucose (Fingerstick) 168 mg/dL (70-99) 144 mg/dL (70-99) Laboratory Tests Test 01/23/17 12:26 01/23/17 17:35 01/23/17 20:40 01/24/17 05:30 Glucose (Fingerstick) 122 mg/dL (70-99) 175 mg/dL (70-99) 186 mg/dL (70-99) White Blood Count 12.9 x10^3/uL (4.0-11.0) Red Blood Count 3.94 x10^6/uL (4.30-5.70) Hemoglobin 10.2 g/dL (13.0-17.5) Hematocrit 31.6 % (39.0-53.0) Mean Corpuscular Volume 80 fL (79-100) Mean Corpuscular Hemoglobin 26 pg (25-35) Mean Corpuscular Hemoglobin Concent 32 g/dL (31-37) Red Cell Distribution Width 19.9 % (11.5-14.5) Platelet Count 258 x10^3/uL (140-400) Neutrophils (%) (Auto) 89 % (31-73) Lymphocytes (%) (Auto) 6 % (24-48) Monocytes (%) (Auto) 5 % (0-9) Eosinophils (%) (Auto) 0 % (0-3) Basophils (%) (Auto) 1 % (0-3) Neutrophils # (Auto) 11.5 x10^3uL (1.8-7.7) Lymphocytes # (Auto) 0.8 x10^3/uL (1.0-4.8) Monocytes # (Auto) 0.6 x10^3/uL (0.0-1.1) Eosinophils # (Auto) 0.0 x10^3/uL (0.0-0.7) Basophils # (Auto) 0.1 x10^3/uL (0.0-0.2) Sodium Level 136 mmol/L (136-145) Potassium Level 5.8 mmol/L (3.5-5.1) Chloride Level 96 mmol/L (98-107) Carbon Dioxide Level 25 mmol/L (21-32) Anion Gap 15 (6-14) Blood Urea Nitrogen 96 mg/dL (8-26) Creatinine 5.1 mg/dL (0.7-1.3) Estimated GFR (Cockcroft-Gault) 11.0 Glucose Level 160 mg/dL (70-99) Calcium Level 9.5 mg/dL (8.5-10.1) Triglycerides Level 98 mg/dL (0-150) Cholesterol Level 77 mg/dL (0-200) LDL Cholesterol, Calculated 31 mg/dL (0-100) VLDL Cholesterol, Calculated 20 mg/dL (0-40) Non-HDL Cholesterol Calculated 51 mg/dL (0-129) HDL Cholesterol 26 mg/dL (40-60) Cholesterol/HDL Ratio 3.0 Thyroid Stimulating Hormone (TSH) 5.398 uIU/mL (0.358-3.74) Test 01/24/17 08:59 01/24/17 11:39 Glucose (Fingerstick) 168 mg/dL (70-99) 144 mg/dL (70-99) Medications Active Scripts Medications Dose Route/Sig Max Daily Dose Days Date Category Metolazone 2.5 Mg Tablet 2.5 Mg PO SATURDAY -SATURDAY PRN 01/23/17 Reported Entresto 24 mg-26 mg Tablet (Sacubitril/Valsartan) 1 Each Tablet 1 Each PO BID 01/23/17 Reported Aspir 81 (Aspirin) 81 Mg Tablet.dr 81 Mg PO 01/23/17 Reported Mag-Oxide (Magnesium Oxide) 400 Mg Tablet 1 Tab PO BID 01/23/17 Reported NITROGLYCERIN SubLingual (Nitroglycerin) 0.4 Mg Tab.subl 0.4 Mg SL PRN Q5MIN PRN 01/23/17 Reported Metoprolol Succinate ( Xl ) (Metoprolol Succinate) 25 Mg Tab.er.24h 50 Mg PO DAILY 01/23/17 Reported Eliquis (Apixaban) 5 Mg Tablet 5 Mg PO BID 01/23/17 Reported Amiodarone Hcl 200 Mg Tablet 200 Mg PO TID 04/24/16 Rx Savaysa (Edoxaban Tosylate) 60 Mg Tablet 60 Mg PO QHS 04/21/16 Reported [place]-3 Fish Oil 1,000 Mg Sfgl ([place]-3/Dha/Epa/Fish Oil) 1,000 Mg Capsule 1,000 Mg PO DAILY 10/31/15 Reported Metformin Hcl 850 Mg Tablet 850 Mg PO BIDWMEALS 10/31/15 Reported Plavix (Clopidogrel Bisulfate) 75 Mg Tablet 75 Mg PO DAILY 10/31/15 Reported Crestor (Rosuvastatin Calcium) 20 Mg Tablet 20 Mg PO HS 05/29/14 Reported Losartan Potassium 25 Mg Tablet 50 Mg PO DAILY 05/29/14 Reported Furosemide 40 Mg Tablet 40 Mg PO DAILY 05/29/14 Reported Potassium Chloride 20 Meq Tab.er.prt 20 Meq PO DAILY 05/29/14 Reported Impression . 1. Acute hypoxic respiratory failure secondary to acute on chronic systolic heart failure and moderate-sized right pleural effusion. 2. 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 3. No significant history of tobacco use. 4. Acute on chronic renal failure. Suspect secondary to poor cardiac pump function. 5. ?Pneumonia Plan . 1. Discussed with the patient and the family. He would benefit from thoracentesis. We will arrange CT-guided. He is on Eliquis and Plavix. I spoke with Interventional Radiology, and we have to hold Eliquis at least 48 hours and Plavix for at least 4 days. The patient's procedure will be scheduled on Saturday. 2. Follow Cardiology recommendations. 3. Follow renal recommendations. dialysis today. 4. He probably has acute bronchitis as well and I will continue empiric antibiotics. 5. Would rec. DNR BABATUNDE THEODORE MD Jan 24, 2017 12:15
[2017-01-24 12:34] LABS: BILIRUBIN,URINE NEGATIVE (NEG); GLUCOSE,URINE NEGATIVE (NEG); NITRITE,URINE NEGATIVE (NEG); PROTEIN,URINE 100 mg/dL (NEG-TRACE); UROBILINOGEN,URINE 0.2 mg/dL (0.2 mg/dL)
[2017-01-24 12:52] LABS: BACTERIA,URINE MODERATE /HPF (0-FEW); SQUAMOUS EPITHELIAL CELL,UR FEW /LPF
[2017-01-24] MEDS ORDERED: LIDOCAINE 1% / SOD BICARB 8.4% 20 ML VIAL. IJ ONE ×2 (13:08→13:45)
[2017-01-24] MEDS ORDERED: HEPARIN for IV BOLUS 10,000 UNIT/10 ML VIAL. ONE (13:08)
--- NOTE | 2017-01-24 13:37 | PDOC ---
Infectious Disease Note Vital Sign Vital Signs Vital Signs Date Time Temp Pulse Resp B/P (MAP) Pulse Ox O2 Delivery O2 Flow Rate FiO2 01/24/17 12:57 60 103/62 (76) 01/24/17 11:00 97.8 20 94 Room Air 97.8 01/24/17 08:09 2.0 Labs Lab Laboratory Tests Test 01/23/17 17:35 01/23/17 20:40 01/24/17 05:30 01/24/17 08:59 Glucose (Fingerstick) 175 mg/dL (70-99) 186 mg/dL (70-99) 168 mg/dL (70-99) White Blood Count 12.9 x10^3/uL (4.0-11.0) Red Blood Count 3.94 x10^6/uL (4.30-5.70) Hemoglobin 10.2 g/dL (13.0-17.5) Hematocrit 31.6 % (39.0-53.0) Mean Corpuscular Volume 80 fL (79-100) Mean Corpuscular Hemoglobin 26 pg (25-35) Mean Corpuscular Hemoglobin Concent 32 g/dL (31-37) Red Cell Distribution Width 19.9 % (11.5-14.5) Platelet Count 258 x10^3/uL (140-400) Neutrophils (%) (Auto) 89 % (31-73) Lymphocytes (%) (Auto) 6 % (24-48) Monocytes (%) (Auto) 5 % (0-9) Eosinophils (%) (Auto) 0 % (0-3) Basophils (%) (Auto) 1 % (0-3) Neutrophils # (Auto) 11.5 x10^3uL (1.8-7.7) Lymphocytes # (Auto) 0.8 x10^3/uL (1.0-4.8) Monocytes # (Auto) 0.6 x10^3/uL (0.0-1.1) Eosinophils # (Auto) 0.0 x10^3/uL (0.0-0.7) Basophils # (Auto) 0.1 x10^3/uL (0.0-0.2) Sodium Level 136 mmol/L (136-145) Potassium Level 5.8 mmol/L (3.5-5.1) Chloride Level 96 mmol/L (98-107) Carbon Dioxide Level 25 mmol/L (21-32) Anion Gap 15 (6-14) Blood Urea Nitrogen 96 mg/dL (8-26) Creatinine 5.1 mg/dL (0.7-1.3) Estimated GFR (Cockcroft-Gault) 11.0 Glucose Level 160 mg/dL (70-99) Calcium Level 9.5 mg/dL (8.5-10.1) Triglycerides Level 98 mg/dL (0-150) Cholesterol Level 77 mg/dL (0-200) LDL Cholesterol, Calculated 31 mg/dL (0-100) VLDL Cholesterol, Calculated 20 mg/dL (0-40) Non-HDL Cholesterol Calculated 51 mg/dL (0-129) HDL Cholesterol 26 mg/dL (40-60) Cholesterol/HDL Ratio 3.0 Thyroid Stimulating Hormone (TSH) 5.398 uIU/mL (0.358-3.74) Test 01/24/17 10:30 01/24/17 11:39 Urine Collection Type Unknown Urine Color Yellow Urine Clarity Cloudy Urine pH 5.0 Urine Specific [place] 1.015 Urine Protein 100 mg/dL (NEG-TRACE) Urine Glucose (UA) Negative mg/dL (NEG) Urine Ketones (Stick) Negative mg/dL (NEG) Urine Blood Negative (NEG) Urine Nitrite Negative (NEG) Urine Bilirubin Negative (NEG) Urine Urobilinogen Dipstick 0.2 mg/dL (0.2 mg/dL) Urine Leukocyte Esterase Negative (NEG) Urine RBC 1-2 /HPF (0-2) Urine WBC 1-4 /HPF (0-4) Urine Squamous Epithelial Cells Few /LPF Urine Bacteria Moderate /HPF (0-FEW) Urine Hyaline Casts Moderate /HPF Urine Mucus Slight /LPF Glucose (Fingerstick) 144 mg/dL (70-99) Objective Assessment Leukocytosis Right pleural effusion Acute on chronic CHF WILNER on CKD Severe cardiomyopathy w/EF 10-15% DM II Plan Plan of Care Zyvox, Zosyn and Azithromycin per Dr. Torres given WBC/infiltrate and risk of pneumonia -recently finished a 7 day course of abx for some sort of insect bite Await CT guided thoracentesis S/p HDC placement and in HD Monitor labs and cultures Supportive care Reviewed previous records Seen in HD Thank you [phone] Attending Co-Sign Attending Co-Sign The patient was seen and interviewed as well as examined at the bedside. The chart was reviewed. The case was discussed. Agree with the plan of care. ZANA PATEL APRN Jan 24, 2017 13:36 CLINTON TORRES MD Jan 24, 2017 15:46
--- NOTE | 2017-01-24 13:41 | PDOC1 ---
HISTORY AND PHYSICAL Chief Complaint Chief Complaint This 81 year old male has been admitted with a chief complaint of a/c systolic/diastolic CHF. He has been managed in the office for the last 3 weeks for swelling of the lower extremities. He was taking his lasix incorrectly with minimal improvement in CHF. The lasix was decreased to 40mg daily and continue zaroxlyn 2.5mg on Mondays. A follow up evaluation in one week noted no improvement in swelling or CHF symptoms with swelling of LE bilaterally and dyspnea/orthopnea. His las was increased to 40mg bid and Zaroxlyn 2.5mg on Sat and and Enestro stopped. Also the metformin was stopped due to increasing Cr. His daughter contacted the office on Saturday this week with no improvement in symptoms. He was seen in the office yesterday with worsening LE edema bilaterally and crackles ant/post R sided. He was directly admitted for further evaluation and treatment. His labs on admit elevated BNP, acute renal failure with Cr 4.4, CXR + for moderate pleural effusion R sided and elevated WBC. Consultations were placed with pulmonary, nephrology, cardiology, and infectious disease. Please see plan of care for further treatment. Past Medical History Cardiovascular: CAD (severe not surgical candidate), CHF (systolic and diastolic CHF EF 10-15% AICD ), HTN, VA, Hyperlipidemia Renal/: Chronic renal insuff (CKD II) Endocrine: Diabetes (Type II oral med controlled ) Past Surgical History Past Surgical History: Pacemaker (AICD), Cholecystectomy, CABG, Colon Resection Past Family History Family History: Diabetes, Heart Disease, Hypertension, Other (congestive heart failure ) Past Social History PSH no h/o smoking, ETOH or illicit drug use. Review of Symptoms Review of Symptoms A 14 point ROS was completed with the following noted as positive: per HPI Other systems reviewed and negative. Medications Medications reviewed and reconciled. Allergy Allergies Coded Allergies Type Severity Reaction Last Updated Verified No Known Drug Allergies 07/05/15 No Physical Exam Physical Exam General appearance - alert, ill appearing, and in no distress Mental Status - alert, oriented to person, place, and time, affect appropriate to mood Head - normal Chest - crackles R ant/post Heart - S1 and S2 normal Abdomen - soft, nontender, nondistended, BS + Neurological - no acute focal neurological deficit noted. Musculoskeletal - no muscular tenderness noted Extremities - +++ pedal edema R>L Skin - warm and dry VTE Prophylaxis Ordered VTE Prophylaxis Devices: Yes VTE Pharmacological Prophylaxi: No Assessment Labs Laboratory Tests Test 01/23/17 12:05 01/23/17 12:26 01/23/17 17:35 01/23/17 20:40 White Blood Count 15.5 x10^3/uL (4.0-11.0) Red Blood Count 4.28 x10^6/uL (4.30-5.70) Hemoglobin 10.8 g/dL (13.0-17.5) Hematocrit 34.3 % (39.0-53.0) Mean Corpuscular Volume 80 fL (79-100) Mean Corpuscular Hemoglobin 25 pg (25-35) Mean Corpuscular Hemoglobin Concent 32 g/dL (31-37) Red Cell Distribution Width 20.3 % (11.5-14.5) Platelet Count 293 x10^3/uL (140-400) Neutrophils (%) (Auto) 88 % (31-73) Lymphocytes (%) (Auto) 6 % (24-48) Monocytes (%) (Auto) 5 % (0-9) Eosinophils (%) (Auto) 0 % (0-3) Basophils (%) (Auto) 0 % (0-3) Neutrophils # (Auto) 13.6 x10^3uL (1.8-7.7) Lymphocytes # (Auto) 1.0 x10^3/uL (1.0-4.8) Monocytes # (Auto) 0.8 x10^3/uL (0.0-1.1) Eosinophils # (Auto) 0.0 x10^3/uL (0.0-0.7) Basophils # (Auto) 0.0 x10^3/uL (0.0-0.2) Segmented Neutrophils % 94 % (35-66) Lymphocytes % 3 % (24-48) Monocytes % 3 % (0-10) Platelet Estimate Adequate (ADEQUATE) Anisocytosis Mod Sodium Level 137 mmol/L (136-145) Potassium Level 4.6 mmol/L (3.5-5.1) Chloride Level 96 mmol/L (98-107) Carbon Dioxide Level 25 mmol/L (21-32) Anion Gap 16 (6-14) Blood Urea Nitrogen 79 mg/dL (8-26) Creatinine 4.4 mg/dL (0.7-1.3) Estimated GFR (Cockcroft-Gault) 13.0 BUN/Creatinine Ratio 18 (6-20) Glucose Level 133 mg/dL (70-99) Calcium Level 9.8 mg/dL (8.5-10.1) Magnesium Level 3.2 mg/dL (1.8-2.4) Total Bilirubin 1.1 mg/dL (0.2-1.0) Aspartate Amino Transf (AST/SGOT) 14 U/L (15-37) Alanine Aminotransferase (ALT/SGPT) 19 U/L (16-63) Alkaline Phosphatase 98 U/L (46-116) SW-Nei-S-Type Natriuretic Peptide 08098 pg/mL (0-449) Total Protein 7.7 g/dL (6.4-8.2) Albumin 3.7 g/dL (3.4-5.0) Albumin/Globulin Ratio 0.9 (1.0-1.7) Procalcitonin 0.23 ng/mL (0.00-0.10) Glucose (Fingerstick) 122 mg/dL (70-99) 175 mg/dL (70-99) 186 mg/dL (70-99) Test 01/24/17 05:30 01/24/17 08:59 01/24/17 10:30 01/24/17 11:39 White Blood Count 12.9 x10^3/uL (4.0-11.0) Red Blood Count 3.94 x10^6/uL (4.30-5.70) Hemoglobin 10.2 g/dL (13.0-17.5) Hematocrit 31.6 % (39.0-53.0) Mean Corpuscular Volume 80 fL (79-100) Mean Corpuscular Hemoglobin 26 pg (25-35) Mean Corpuscular Hemoglobin Concent 32 g/dL (31-37) Red Cell Distribution Width 19.9 % (11.5-14.5) Platelet Count 258 x10^3/uL (140-400) Neutrophils (%) (Auto) 89 % (31-73) Lymphocytes (%) (Auto) 6 % (24-48) Monocytes (%) (Auto) 5 % (0-9) Eosinophils (%) (Auto) 0 % (0-3) Basophils (%) (Auto) 1 % (0-3) Neutrophils # (Auto) 11.5 x10^3uL (1.8-7.7) Lymphocytes # (Auto) 0.8 x10^3/uL (1.0-4.8) Monocytes # (Auto) 0.6 x10^3/uL (0.0-1.1) Eosinophils # (Auto) 0.0 x10^3/uL (0.0-0.7) Basophils # (Auto) 0.1 x10^3/uL (0.0-0.2) Sodium Level 136 mmol/L (136-145) Potassium Level 5.8 mmol/L (3.5-5.1) Chloride Level 96 mmol/L (98-107) Carbon Dioxide Level 25 mmol/L (21-32) Anion Gap 15 (6-14) Blood Urea Nitrogen 96 mg/dL (8-26) Creatinine 5.1 mg/dL (0.7-1.3) Estimated GFR (Cockcroft-Gault) 11.0 Glucose Level 160 mg/dL (70-99) Calcium Level 9.5 mg/dL (8.5-10.1) Triglycerides Level 98 mg/dL (0-150) Cholesterol Level 77 mg/dL (0-200) LDL Cholesterol, Calculated 31 mg/dL (0-100) VLDL Cholesterol, Calculated 20 mg/dL (0-40) Non-HDL Cholesterol Calculated 51 mg/dL (0-129) HDL Cholesterol 26 mg/dL (40-60) Cholesterol/HDL Ratio 3.0 Thyroid Stimulating Hormone (TSH) 5.398 uIU/mL (0.358-3.74) Glucose (Fingerstick) 168 mg/dL (70-99) 144 mg/dL (70-99) Urine Collection Type Unknown Urine Color Yellow Urine Clarity Cloudy Urine pH 5.0 Urine Specific [place] 1.015 Urine Protein 100 mg/dL (NEG-TRACE) Urine Glucose (UA) Negative mg/dL (NEG) Urine Ketones (Stick) Negative mg/dL (NEG) Urine Blood Negative (NEG) Urine Nitrite Negative (NEG) Urine Bilirubin Negative (NEG) Urine Urobilinogen Dipstick 0.2 mg/dL (0.2 mg/dL) Urine Leukocyte Esterase Negative (NEG) Urine RBC 1-2 /HPF (0-2) Urine WBC 1-4 /HPF (0-4) Urine Squamous Epithelial Cells Few /LPF Urine Bacteria Moderate /HPF (0-FEW) Urine Hyaline Casts Moderate /HPF Urine Mucus Slight /LPF Laboratory Tests Test 01/23/17 17:35 01/23/17 20:40 01/24/17 05:30 01/24/17 08:59 Glucose (Fingerstick) 175 mg/dL (70-99) 186 mg/dL (70-99) 168 mg/dL (70-99) White Blood Count 12.9 x10^3/uL (4.0-11.0) Red Blood Count 3.94 x10^6/uL (4.30-5.70) Hemoglobin 10.2 g/dL (13.0-17.5) Hematocrit 31.6 % (39.0-53.0) Mean Corpuscular Volume 80 fL (79-100) Mean Corpuscular Hemoglobin 26 pg (25-35) Mean Corpuscular Hemoglobin Concent 32 g/dL (31-37) Red Cell Distribution Width 19.9 % (11.5-14.5) Platelet Count 258 x10^3/uL (140-400) Neutrophils (%) (Auto) 89 % (31-73) Lymphocytes (%) (Auto) 6 % (24-48) Monocytes (%) (Auto) 5 % (0-9) Eosinophils (%) (Auto) 0 % (0-3) Basophils (%) (Auto) 1 % (0-3) Neutrophils # (Auto) 11.5 x10^3uL (1.8-7.7) Lymphocytes # (Auto) 0.8 x10^3/uL (1.0-4.8) Monocytes # (Auto) 0.6 x10^3/uL (0.0-1.1) Eosinophils # (Auto) 0.0 x10^3/uL (0.0-0.7) Basophils # (Auto) 0.1 x10^3/uL (0.0-0.2) Sodium Level 136 mmol/L (136-145) Potassium Level 5.8 mmol/L (3.5-5.1) Chloride Level 96 mmol/L (98-107) Carbon Dioxide Level 25 mmol/L (21-32) Anion Gap 15 (6-14) Blood Urea Nitrogen 96 mg/dL (8-26) Creatinine 5.1 mg/dL (0.7-1.3) Estimated GFR (Cockcroft-Gault) 11.0 Glucose Level 160 mg/dL (70-99) Calcium Level 9.5 mg/dL (8.5-10.1) Triglycerides Level 98 mg/dL (0-150) Cholesterol Level 77 mg/dL (0-200) LDL Cholesterol, Calculated 31 mg/dL (0-100) VLDL Cholesterol, Calculated 20 mg/dL (0-40) Non-HDL Cholesterol Calculated 51 mg/dL (0-129) HDL Cholesterol 26 mg/dL (40-60) Cholesterol/HDL Ratio 3.0 Thyroid Stimulating Hormone (TSH) 5.398 uIU/mL (0.358-3.74) Test 01/24/17 10:30 01/24/17 11:39 Urine Collection Type Unknown Urine Color Yellow Urine Clarity Cloudy Urine pH 5.0 Urine Specific [place] 1.015 Urine Protein 100 mg/dL (NEG-TRACE) Urine Glucose (UA) Negative mg/dL (NEG) Urine Ketones (Stick) Negative mg/dL (NEG) Urine Blood Negative (NEG) Urine Nitrite Negative (NEG) Urine Bilirubin Negative (NEG) Urine Urobilinogen Dipstick 0.2 mg/dL (0.2 mg/dL) Urine Leukocyte Esterase Negative (NEG) Urine RBC 1-2 /HPF (0-2) Urine WBC 1-4 /HPF (0-4) Urine Squamous Epithelial Cells Few /LPF Urine Bacteria Moderate /HPF (0-FEW) Urine Hyaline Casts Moderate /HPF Urine Mucus Slight /LPF Glucose (Fingerstick) 144 mg/dL (70-99) Plan Plan IMPRESSION: 1. 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 ARF WILNER ATN diuretics with underlying CKD II 3. R moderate pleural effusion 4. metabolic encephalopathy 5. leukocytosis w/o fever 6. Coronary artery disease. with h/o stent/CABG 7. History of myocardial infarction.>8wk 7. Hyperlipidemia. 8. History of colon cancer with colon resection. 9. Diabetes mellitus type 2, not controlled. poor compliance with diet 10. AFchronic eliquis AICD 11. mod MR 12. HTN 13. hyperkalemia PLAN: a/c CHF Lasix 40mg IV x1 cardiology consult daily wt IO admit wt not obtained 01/24 154.4# BNP 38263 edema LE-venous doppler report pending ARF WILNER ATN nephrology consult renal US negative Admit Na 137 01/24 136 K 4.6 5.8 BUN 79 96 Cr 4.4 5.1 Mg 3.2 Procalcitonin 0.23 may need dialysis KCL and Mg replacements stopped Dyspnea multifactorial pulmonary consult Acute bronchitis pleural effusion-thoracentesis planned -eliquis needs held for 48h prior to procedure WBC 15.5 01/24 12.9 ID consult empiric antibiotics: zithromax x1, zosyn IV , Zyvox po. nebulizer treatments abnormal TSH acute illness-re eval OP in 2-3 months AF Eliquis stopped prior to thoracentesis-resume post procedure CAD ASA and Plavix discontinued-resume post procedure metabolic encephalopathy monitor DVT/GI prophylaxis SCD/ELEUTERIO PPI For further plan of care, please refer to the orders. For more details regarding further plans, please refer to the orders. Provider Note Provider Note The patient was seen and examined by me. Chart reviewed and plan of care formulated. Discussed with, reviewed and agree with CHIP SEPARATOR's notes, plan of care and orders with modifications as necessary. For more details regarding further plans, please refer to the orders. D/w patient,.Will need dialysis. Dr. Norris note recopied for HP-see Provider note 01/24/17 NEVA LOONEY APRN Jan 24, 2017 13:41
[2017-01-24] MEDS ORDERED: IV NORMAL SALINE 1000ML BAG 1,000 ML IV PRN ×2 (14:38)
[2017-01-24] MEDS ORDERED: diphenhydrAMINE 50 MG/ML VIAL IV PRN ×2 (14:45)
[2017-01-24] MEDS ORDERED: DIALYSIS PATIENT. MC PRN (14:45)
[2017-01-24] MEDS ORDERED: 0.9 % SODIUM CHLORIDE 10 ML DISP.SYRIN. IV PRN ×2 (14:45)
--- NOTE | 2017-01-24 14:57 | RAD ---
Procedure: Temporary hemodialysis catheter placement under fluoroscopy 01/24/2017 Clinical Indication: Renal failure Fluoro Time: 0.3 minutes Dose area product: 2 Gycm2 Contrast: None Sterility: All elements of maximal sterile barrier technique including the use of a cap, mask, sterile gown, sterile gloves, large sterile sheet, appropriate hand hygiene, and 2% chlorhexidine for cutaneous antisepsis (or acceptable alternative antiseptic per current guidelines) were followed for this procedure. Consent: The procedure was explained in its entirety to the patient or the patients designated sales representative business courses by a member of the treatment team, including a discussion of the risks, benefits and commonly accepted alternatives to the procedure, as well as the expected consequences of no therapy whatsoever. Discussion of the risks included, but was not limited to, those that are most frequent and those that are rare but possibly severe or life-threatening, as well as the possibility of unforeseen complications. Technique and Findings: Following informed consent, the patient was prepped and draped in the usual sterile fashion. Ultrasound interrogation of the right neck revealed patency and compressibility of the right internal jugular vein. A 21-gauge micropuncture needle was used to gain access to this vein after 1% Lidocaine was used to achieve local anesthesia. A hardcopy ultrasound image was recorded. The needle was exchanged over a wire for serial dilators followed by a 20 cm Schon temporary hemodialysis catheter which was deployed under fluoroscopic guidance such that the distal tip resided in the mid right atrium. The catheter flow rates were assessed manually and found to be excellent. The catheter was then flushed, packed with Heparin, capped, and sutured to the skin. No immediate complications were identified. Impression: Successful ultrasound and fluoroscopic guided placement of a right internal jugular temporary hemodialysis catheter w
[2017-01-24] MEDS: AZITHROMYCIN 250 MG TABLET. PO SCH (18:04)
--- NOTE | 2017-01-24 19:39 | CARD ---
APPROVED REPORT EXAM: Two-dimensional and M-mode echocardiogram with Doppler and color Doppler. INDICATION Congestive Heart Failure 2D DIMENSIONS RVDd3.7 (2.9-3.5cm)Left Atrium(2D)4.8 (1.6-4.0cm) IVSd1.3 (0.7-1.1cm)Aortic Root(2D)2.8 (2.0-3.7cm) LVDd6.0 (3.9-5.9cm)LVOT Diameter2.4 (1.8-2.4cm) PWd1.4 (0.7-1.1cm)LVDs5.7 (2.5-4.0cm) FS (%) 4.3 %SV17.0 ml LVEF(%)9.5 (>50%) M-Mode DIMENSIONS LVDd7.36 (4.0-5.6cm)FS (%) 10 % LVDs6.60 (2.0-3.8cm)ESV(Teich)223.5 ml LVEF(%)22 (>50%) Aortic Valve AoV Peak Harris.140.1cm/sAoV VTI23.2cm AO Peak GR.7.9mmHgLVOT Peak Harris.53.4cm/s AO Mean GR.4mmHgAVA (VMAX)1.75cm2 AI P 1/2 [id number] Mitral Valve MV E Hdxmexwc29.1cm/sMV E Peak Gr.82mmHg MV DECEL [id number] A Pcfoiars08.5cm/s MV E Mean Gr.1mmHgE/A Ratio1.5 MV A [id number] Pulmonary Valve PV Peak Emecnlak973.7cm/s Tricuspid Valve TR P. Lauiplzz225tv/sTR Peak Gr.59mmHg Pulmonary Vein S1 Pakgtxbt74.2cm/s LEFT VENTRICLE The Left Ventricle is moderately dilated. There is mild concentric left ventricular hypertrophy. Left ventricle systolic function is severely impaired. The Ejection Fraction is 25% by Franks's method a nd 21% overall. There is severe hypokinesis to akinesis in the mid to apical anteroseptal wall. There is also severe hypokinesis to akinesis of the basal to mid inferior wall. All other left ventricular jara are severely hypokinetic. Transmitral Doppler flow pattern is Grade IV-fixed restrictive diast olic dysfunction. No left ventricle thrombus noted on this study. RIGHT VENTRICLE The right ventricle is mildly dilated. There is normal right ventricular wall thickness. Systolic fun ction is mildly reduced. There are pacemaker/defibrillator leads in the right ventricle. ATRIA The left atrium is severely dilated. The right atrium is mildly dilated. The interatrial septum is in tact with no evidence for an atrial septal defect or patent foramen ovale as noted on 2-D or Doppler imaging. AORTIC VALVE The aortic valve is mildly thickened. The aortic valve is trileaflet. Doppler and Color Flow revealed mild aortic regurgitation. There is no significant aortic valvular stenosis. MITRAL VALVE The mitral valve leaflets are moderately thickened. There is no evidence of mitral valve prolapse. Th ere is no mitral valve stenosis. Doppler and Color Flow revealed moderate mitral regurgitation. TRICUSPID VALVE Doppler and Color Flow revealed moderate to severe tricuspid regurgitation. The pulmonary artery syst olic pressure is estimated at 67 mmHg. There is severe pulmonary hypertension. PULMONIC VALVE The pulmonic valve is not well visualized but appears to open adequatelyl. Doppler and Color Flow rev ealed mild pulmonic valvular regurgitation. There is no pulmonic valvular stenosis by spectral Dopple r. GREAT VESSELS The aortic root is normal in size. The ascending aorta is normal in size. The pulmonary artery is nor mal. The IVC is normal in size but does not collapse with inspiration. PERICARDIAL EFFUSION There is moderate right pleural effusion. There is no evidence of significant pericardial effusion. Critical Notification Critical Value: No <Conclusion> The left ventricle is moderately dilated to 6.6 cm. There is severe diffuse decrease in contractility with an ejection fraction of 15-20%. Cardiac index is severely decreased to 566 mL. The normal is 2.8-4.2 L/m. VStroke volume index is severely decreased to only 10 cc. Normal is 30-65 mL/m. There is a grade 4 diastolic dysfunction There is significant increase in the left atrial filling pressure. The E prime velocity over the septum is 2 cm. E over E prime ratio is severely increased to 64. The E prime velocity over the lateral wall is 5 cm. E over E prime ratio is increased to 17. There is no pericardial effusion. The left atrium is enlarged to 4.8 cm. There is no mitral stenosis and a moderate mitral regurgitation. There is no aortic stenosis and a mild aortic regurgitation. Right ventricle is enlarged. Right atrium is enlarged. There is moderate tricuspid regurgitation. There is moderate pulmonary hypertension with a right ventricular systolic pressure of 70 mmHg mercur y. There is mild pulmonic regurgitation. IMPRESSION 1. Severe systolic and diastolic dysfunction of the left ventricle 2. A low cardiac output of only 20-30% of normal. 3. Moderate mitral and tricuspid regurgitation. 4. Mild aortic and pulmonic regurgitation. 5. Moderate pulmonary hypertension.
--- NOTE | 2017-01-24 19:55 | PDOC ---
Provider Note Provider Note He feels better today despite severe oliguria. He is not as confused today. Lungs decreased breath sounds on the right side but no wheezing. Heart sounds normal with no S3 or significant murmur. Creatinine has gone up to 5.1 and potassium to 5.8 despite no LAMAR or ARB.. Discussed with Dr. Mayo. See echocardiogram report. Very low output and significantly increased left atrial filling pressure. Plan to place him on inotropes and Dr. Mayo who agrees. Will also be dialyzed. The patient is agreeable to dialysis. Pacemaker was interrogated He has ventricular pacing with wide QRS complex of only 37%. He probably just does not quite qualify for an upgrade to a BiV pacemaker. Plan to observe status with inotropes and dialysis. Since he has severe diastolic dysfunction also I do not plan on increasing the dose of dobutamine. MELINDA FORTUNE MD Jan 24, 2017 19:55
[2017-01-24] MEDS: ATORVASTATIN CALCIUM 40 MG TABLET. PO SCH (21:21)
[2017-01-24] MEDS: MONTELUKAST SODIUM 10 MG TABLET. PO SCH (21:21)
[2017-01-25] VITALS (16 sets, daily range): BP systolic 93–125; BP diastolic 52–69
--- NOTE | 2017-01-25 01:27 | CONS ---
DATE OF CONSULTATION: 01/23/2017 REFERRING PHYSICIAN: Dr. Norris. REASON FOR CONSULTATION: Leukocytosis. HISTORY OF PRESENT ILLNESS: This patient is a pleasant 81-year-old male with a medical history of severe cardiomyopathy with EF of 10-15%, chronic systolic congestive heart failure and severe coronary artery disease who presented with worsening shortness of air and leg swelling over the past month or so associated with a BNP of 14,308 and acute kidney injury. 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 He is on Lasix and taken an extra dose here and there for swelling. Denies chest discomfort, headaches, nasal/sinus congestion, or sore throat. Denies fevers, chills, sweats, or aches. He is unable to lie flat. He has an occasional cough with phlegm production. On admission, he had elevated white blood cell count of 15,500 with a procalcitonin level of 0.23. A chest x-ray showed a moderate right pleural effusion. A CT-guided thoracentesis is planned. He was started on Zyvox, Zosyn, and azithromycin empirically. He is scheduled to have a temporary hemodialysis catheter placement in anticipation of dialysis. PAST MEDICAL HISTORY: Severe cardiomyopathy with ejection fraction 10-15%, severe coronary artery disease, chronic systolic congestive heart failure, diabetes mellitus type 2, atrial fibrillation on chronic Eliquis, history of colon cancer status post chemotherapy, hypertension, hyperlipidemia, history of myocardial infarction. PAST SURGICAL HISTORY: Coronary artery bypass graft, AICD placement, tonsillectomy, adenoidectomy, cholecystectomy. FAMILY HISTORY: Positive for diabetes mellitus, cardiovascular disease. SOCIAL HISTORY: The patient has been for the past 60 years. His resides in a senior living. He lives by himself. A couple of weeks ago, he had been in the [place] with his daughter and got bit by some sort of insect. and he recently finished his 7-day course of antibiotics. Nonsmoker. No history of alcohol or illicit drug use. ALLERGIES: No known drug allergies. CURRENT MEDICATIONS: Zyvox, Zosyn, azithromycin, dobutamine drip. Other medications are available and have been reviewed on the MAR. REVIEW OF SYSTEMS: In addition to HPI, the patient's appetite has been "lousy." He has been losing weight. His clothes have been fitting loose. Denies nausea, vomiting, or diarrhea. He has been urinating less frequently. Denies dysuria or retention. Denies rash. PHYSICAL EXAMINATION: GENERAL: male, sitting in the chair in no apparent distress. VITAL SIGNS: Temperature is 97.8, blood pressure 103/62, heart rate 60, respiratory rate 20, pulse oximetry is 94% on 2 L nasal cannula. Weight 154 pounds. HEENT: HEENT: He wears eyeglasses. Normal conjunctivae. Oral mucosa is pink and dry. NECK: Supple. LUNGS: Diminished aeration right lower lung leon. Nonlabored. HEART: Normal S1 and S2. Left-sided AICD. ABDOMEN: Bowel sounds are present, soft, nontender. EXTREMITIES: Bilateral lower extremity edema. No cyanosis. SKIN: Without rash. Warm to touch. NEUROLOGIC: Alert and oriented x 3. No focal deficits appreciated. Peripheral IV, looks okay. LABORATORY DATA: Today's WBC 12.9, hemoglobin 10.2, platelet count 258,000. Sodium 136, potassium 5.8, creatinine of 5.1, BUN 96, glucose 160. BNP 14,308. TSH 5.398, total bilirubin 1.1, AST 14, ALT 19. Urinalysis unremarkable for infection. Blood and urine cultures pending. Lower extremity venous ultrasound negative deep venous thrombosis. Renal ultrasound showed normal morphologic appearance of kidneys. Chest x-ray shows moderate right pleural effusion. IMPRESSION: 1. Leukocytosis. 2. Right pleural effusion. 3. Acute on chronic congestive heart failure. 4. Acute kidney injury on chronic kidney disease. 5. Diabetes mellitus. PLAN: Continue Zyvox, Zosyn, and azithromycin. Await CT-guided thoracentesis as well as temporary hemodialysis catheter placement in anticipation for dialysis. Monitor laboratory values and will follow up on culture results. Thank you, Dr. Norris for asking us to participate in this patient's care. Should you have further questions or concerns, please call. CLINTON ABRAHAM MD DR: LANCE/chet JOB#: [id number] / [id number]
[2017-01-25] MEDS: PIPERACILLIN/TAZOBACTAM 2.25 GM in IV NORMAL SALINE 50ML 50 ML IV SCH ×3 (05:42→21:27)
--- NOTE | 2017-01-25 06:17 | ACF ---
Admission Forms Criteria HEART FAILURE: COMMON COMPLICATIONS (Place 'X' for any and all applicable criteria): Ongoing inpatient care may be indicated for heart failure with 1 or more of the following (1)(2)(3)(4)(5)(6)(7)(8): [ ]I. New-onset heart failure [ ]II. Acute cardiac ischemia causing or associated with failure [ ]III. Ongoing need for care for primary condition requiring frequent therapy adjustments because of changes in cardiac function (eg, drug dosage changes for drugs that are renally metabolized) [ X]IV. Complications of heart failure, including 1 or more of the following: [ ]a) Hemodynamic instability [ ]b) Pericardial effusion [ ]c) Symptomatic pleural effusion [ ]d) Hypoxemia [ ]e) Tachypnea [X ]f) Dyspnea [ ]g) Syncope [ ]h) Altered mental status [ ]i) Acute renal insufficiency that is severe (reduction of more than 50% in estimated glomerular filtration rate from baseline) or progressive reduction of more than 25% in estimated glomerular filtration rate from baseline, with creatinine continuing to rise) [ ]j) Debilitating anasarca (eg tissue breakdown with infection, inability to void due to edema) (E) [ ]k) Clinically significant metabolic abnormalities due to heart failure (eg, new-onset metabolic acidosis) Extended stay may be needed until ALL of the following are present (1)(3)(18)(41 )(55) [ ]a) Hemodynamic stability [ ]b) Stable and effective diuretic regimen established (or patient on stable dialysis regimen if in chronic renal failure) [ ]c) Volume status acceptable on oral medication [ ]d) Breathing comfortably at rest [ ]e) Saturation of arterial oxygen greater than 90% or at acceptable baseline [ ]f) Pulmonary edema absent or improved [ ]g) Peripheral or sacral edema absent or improved [ ]h) Renal function stable and manageable at a lower level of care [ ]i) Complications (eg, pleural effusion) resolved or manageable at a lower level of care [ ]g) Patient or caregiver has received written discharge instructions or educational material addressing activity level, diet, discharge medications, follow-up appointment, weight monitoring, and what to do if symptoms worsen.(25)(26) The original [facility] [employer] content created by [employer] has been revised. The portions of the content which have been revised are identified through the use of italic text, and [facility] has neither reviewed nor approved the modified material.All other unmodified content is copyright [facility]. Please see references footnoted in the original [facility] edition 2015 Admission Criteria Met?: Yes LULU JEAN Jan 25, 2017 06:17
[2017-01-25 06:38] LABS: CALCIUM 8.3 mg/dL (8.5-10.1); CREATININE 3.2 mg/dL (0.7-1.3); GFR 18.8; MAGNESIUM 2.6 mg/dL (1.8-2.4); POTASSIUM 4.2 mmol/L (3.5-5.1)
[2017-01-25 06:46] LABS: BASO % 0 % (0-3); EOS % 0 % (0-3); HEMATOCRIT 27.2 % (39.0-53.0); HEMOGLOBIN 9.1 g/dL (13.0-17.5); LYMPH # 0.7 x10^3/uL (1.0-4.8); LYMPH % 8 % (24-48); MEAN CORPUSCULAR HEMOGLOBIN 27 pg (25-35); MEAN CORPUSCULAR HGB CONC 33 g/dL (31-37); MEAN CORPUSCULAR VOLUME 80 fL (79-100); MONO % 7 % (0-9); NEUT % 85 % (31-73); PLATELET COUNT 183 x10^3/uL (140-400); RED BLOOD COUNT 3.41 x10^6/uL (4.30-5.70); RED CELL DISTRIBUTION WIDTH 19.7 % (11.5-14.5)
[2017-01-25] MEDS: INSULIN ASPART 300 UNITS/3 ML INSULN.PEN SQ SCH ×3 (07:30→17:28)
[2017-01-25] MEDS: OMEGA-3 FATTY ACIDS/FISH OIL 1,000 MG CAPSULE. PO SCH (08:11)
[2017-01-25] MEDS: MULTIVITAMIN with MINERAL TABLET. PO SCH (08:12)
[2017-01-25] MEDS: METOPROLOL SUCC 24HR ER 50 MG TAB.ER.24H. PO SCH (08:12)
[2017-01-25] MEDS: AZITHROMYCIN 250 MG TABLET. PO SCH (08:12)
[2017-01-25] MEDS: LINEZOLID 600 MG TABLET PO SCH ×2 (08:12→21:26)
--- NOTE | 2017-01-25 08:54 | PDOC ---
KAREN-BIANCANEVA CUSTOMER PROJECT MANAGER 01/25/17 0854: IM PROGRESS NOTES- Subjective Subjective breathing better. Objective Objective no distress Vitals Vital Signs Date Time Temp Pulse Resp B/P (MAP) Pulse Ox O2 Delivery O2 Flow Rate FiO2 01/25/17 08:12 66 122/66 01/25/17 07:46 Nasal Cannula 2.0 01/25/17 07:00 97.5 22 96 97.5 Input & Output Intake and Output 01/25/17 06:59 Intake Total 1139 ml Output Total 275 ml Balance 864 ml Intake Oral 900 ml Other 239 ml Output Urine Total 275 ml # Voids 1 Physical Exam Physical Exam General appearance - alert, ill; appearing, and in no distress Mental Status - alert, oriented to person, place, and time, affect appropriate to mood Head - normal Chest - clear to auscultation, no wheezes Heart - S1 and S2 normal, irreg Abdomen - soft, nontender, nondistended, BS + Neurological - no acute neurological deficits noted. confusion improving. Musculoskeletal - no muscular tenderness noted Extremities - decreased edema bilateral LE; still present with R>L Skin - warm and dry Labs Laboratory Tests Test 01/23/17 12:05 01/23/17 12:26 01/23/17 17:35 01/23/17 20:40 White Blood Count 15.5 x10^3/uL (4.0-11.0) Red Blood Count 4.28 x10^6/uL (4.30-5.70) Hemoglobin 10.8 g/dL (13.0-17.5) Hematocrit 34.3 % (39.0-53.0) Mean Corpuscular Volume 80 fL (79-100) Mean Corpuscular Hemoglobin 25 pg (25-35) Mean Corpuscular Hemoglobin Concent 32 g/dL (31-37) Red Cell Distribution Width 20.3 % (11.5-14.5) Platelet Count 293 x10^3/uL (140-400) Neutrophils (%) (Auto) 88 % (31-73) Lymphocytes (%) (Auto) 6 % (24-48) Monocytes (%) (Auto) 5 % (0-9) Eosinophils (%) (Auto) 0 % (0-3) Basophils (%) (Auto) 0 % (0-3) Neutrophils # (Auto) 13.6 x10^3uL (1.8-7.7) Lymphocytes # (Auto) 1.0 x10^3/uL (1.0-4.8) Monocytes # (Auto) 0.8 x10^3/uL (0.0-1.1) Eosinophils # (Auto) 0.0 x10^3/uL (0.0-0.7) Basophils # (Auto) 0.0 x10^3/uL (0.0-0.2) Segmented Neutrophils % 94 % (35-66) Lymphocytes % 3 % (24-48) Monocytes % 3 % (0-10) Platelet Estimate Adequate (ADEQUATE) Anisocytosis Mod Sodium Level 137 mmol/L (136-145) Potassium Level 4.6 mmol/L (3.5-5.1) Chloride Level 96 mmol/L (98-107) Carbon Dioxide Level 25 mmol/L (21-32) Anion Gap 16 (6-14) Blood Urea Nitrogen 79 mg/dL (8-26) Creatinine 4.4 mg/dL (0.7-1.3) Estimated GFR (Cockcroft-Gault) 13.0 BUN/Creatinine Ratio 18 (6-20) Glucose Level 133 mg/dL (70-99) Calcium Level 9.8 mg/dL (8.5-10.1) Magnesium Level 3.2 mg/dL (1.8-2.4) Total Bilirubin 1.1 mg/dL (0.2-1.0) Aspartate Amino Transf (AST/SGOT) 14 U/L (15-37) Alanine Aminotransferase (ALT/SGPT) 19 U/L (16-63) Alkaline Phosphatase 98 U/L (46-116) KC-Klx-O-Type Natriuretic Peptide 72734 pg/mL (0-449) Total Protein 7.7 g/dL (6.4-8.2) Albumin 3.7 g/dL (3.4-5.0) Albumin/Globulin Ratio 0.9 (1.0-1.7) Procalcitonin 0.23 ng/mL (0.00-0.10) Glucose (Fingerstick) 122 mg/dL (70-99) 175 mg/dL (70-99) 186 mg/dL (70-99) Test 01/24/17 05:30 01/24/17 08:59 01/24/17 10:30 01/24/17 11:39 White Blood Count 12.9 x10^3/uL (4.0-11.0) Red Blood Count 3.94 x10^6/uL (4.30-5.70) Hemoglobin 10.2 g/dL (13.0-17.5) Hematocrit 31.6 % (39.0-53.0) Mean Corpuscular Volume 80 fL (79-100) Mean Corpuscular Hemoglobin 26 pg (25-35) Mean Corpuscular Hemoglobin Concent 32 g/dL (31-37) Red Cell Distribution Width 19.9 % (11.5-14.5) Platelet Count 258 x10^3/uL (140-400) Neutrophils (%) (Auto) 89 % (31-73) Lymphocytes (%) (Auto) 6 % (24-48) Monocytes (%) (Auto) 5 % (0-9) Eosinophils (%) (Auto) 0 % (0-3) Basophils (%) (Auto) 1 % (0-3) Neutrophils # (Auto) 11.5 x10^3uL (1.8-7.7) Lymphocytes # (Auto) 0.8 x10^3/uL (1.0-4.8) Monocytes # (Auto) 0.6 x10^3/uL (0.0-1.1) Eosinophils # (Auto) 0.0 x10^3/uL (0.0-0.7) Basophils # (Auto) 0.1 x10^3/uL (0.0-0.2) Sodium Level 136 mmol/L (136-145) Potassium Level 5.8 mmol/L (3.5-5.1) Chloride Level 96 mmol/L (98-107) Carbon Dioxide Level 25 mmol/L (21-32) Anion Gap 15 (6-14) Blood Urea Nitrogen 96 mg/dL (8-26) Creatinine 5.1 mg/dL (0.7-1.3) Estimated GFR (Cockcroft-Gault) 11.0 Glucose Level 160 mg/dL (70-99) Hemoglobin A1c 6.8 % (4.8-5.6) Calcium Level 9.5 mg/dL (8.5-10.1) Triglycerides Level 98 mg/dL (0-150) Cholesterol Level 77 mg/dL (0-200) LDL Cholesterol, Calculated 31 mg/dL (0-100) VLDL Cholesterol, Calculated 20 mg/dL (0-40) Non-HDL Cholesterol Calculated 51 mg/dL (0-129) HDL Cholesterol 26 mg/dL (40-60) Cholesterol/HDL Ratio 3.0 Thyroid Stimulating Hormone (TSH) 5.398 uIU/mL (0.358-3.74) Glucose (Fingerstick) 168 mg/dL (70-99) 144 mg/dL (70-99) Urine Collection Type Unknown Urine Color Yellow Urine Clarity Cloudy Urine pH 5.0 Urine Specific [place] 1.015 Urine Protein 100 mg/dL (NEG-TRACE) Urine Glucose (UA) Negative mg/dL (NEG) Urine Ketones (Stick) Negative mg/dL (NEG) Urine Blood Negative (NEG) Urine Nitrite Negative (NEG) Urine Bilirubin Negative (NEG) Urine Urobilinogen Dipstick 0.2 mg/dL (0.2 mg/dL) Urine Leukocyte Esterase Negative (NEG) Urine RBC 1-2 /HPF (0-2) Urine WBC 1-4 /HPF (0-4) Urine Squamous Epithelial Cells Few /LPF Urine Bacteria Moderate /HPF (0-FEW) Urine Hyaline Casts Moderate /HPF Urine Mucus Slight /LPF Test 01/24/17 18:03 01/24/17 21:29 01/25/17 05:55 01/25/17 08:02 Glucose (Fingerstick) 94 mg/dL (70-99) 188 mg/dL (70-99) 133 mg/dL (70-99) White Blood Count 9.0 x10^3/uL (4.0-11.0) Red Blood Count 3.41 x10^6/uL (4.30-5.70) Hemoglobin 9.1 g/dL (13.0-17.5) Hematocrit 27.2 % (39.0-53.0) Mean Corpuscular Volume 80 fL (79-100) Mean Corpuscular Hemoglobin 27 pg (25-35) Mean Corpuscular Hemoglobin Concent 33 g/dL (31-37) Red Cell Distribution Width 19.7 % (11.5-14.5) Platelet Count 183 x10^3/uL (140-400) Neutrophils (%) (Auto) 85 % (31-73) Lymphocytes (%) (Auto) 8 % (24-48) Monocytes (%) (Auto) 7 % (0-9) Eosinophils (%) (Auto) 0 % (0-3) Basophils (%) (Auto) 0 % (0-3) Neutrophils # (Auto) 7.7 x10^3uL (1.8-7.7) Lymphocytes # (Auto) 0.7 x10^3/uL (1.0-4.8) Monocytes # (Auto) 0.6 x10^3/uL (0.0-1.1) Eosinophils # (Auto) 0.0 x10^3/uL (0.0-0.7) Basophils # (Auto) 0.0 x10^3/uL (0.0-0.2) Sodium Level 139 mmol/L (136-145) Potassium Level 4.2 mmol/L (3.5-5.1) Chloride Level 98 mmol/L (98-107) Carbon Dioxide Level 34 mmol/L (21-32) Anion Gap 7 (6-14) Blood Urea Nitrogen 52 mg/dL (8-26) Creatinine 3.2 mg/dL (0.7-1.3) Estimated GFR (Cockcroft-Gault) 18.8 Glucose Level 133 mg/dL (70-99) Calcium Level 8.3 mg/dL (8.5-10.1) Magnesium Level 2.6 mg/dL (1.8-2.4) Laboratory Tests Test 01/24/17 08:59 01/24/17 10:30 01/24/17 11:39 01/24/17 18:03 Glucose (Fingerstick) 168 mg/dL (70-99) 144 mg/dL (70-99) 94 mg/dL (70-99) Urine Collection Type Unknown Urine Color Yellow Urine Clarity Cloudy Urine pH 5.0 Urine Specific [place] 1.015 Urine Protein 100 mg/dL (NEG-TRACE) Urine Glucose (UA) Negative mg/dL (NEG) Urine Ketones (Stick) Negative mg/dL (NEG) Urine Blood Negative (NEG) Urine Nitrite Negative (NEG) Urine Bilirubin Negative (NEG) Urine Urobilinogen Dipstick 0.2 mg/dL (0.2 mg/dL) Urine Leukocyte Esterase Negative (NEG) Urine RBC 1-2 /HPF (0-2) Urine WBC 1-4 /HPF (0-4) Urine Squamous Epithelial Cells Few /LPF Urine Bacteria Moderate /HPF (0-FEW) Urine Hyaline Casts Moderate /HPF Urine Mucus Slight /LPF Test 01/24/17 21:29 01/25/17 05:55 01/25/17 08:02 Glucose (Fingerstick) 188 mg/dL (70-99) 133 mg/dL (70-99) White Blood Count 9.0 x10^3/uL (4.0-11.0) Red Blood Count 3.41 x10^6/uL (4.30-5.70) Hemoglobin 9.1 g/dL (13.0-17.5) Hematocrit 27.2 % (39.0-53.0) Mean Corpuscular Volume 80 fL (79-100) Mean Corpuscular Hemoglobin 27 pg (25-35) Mean Corpuscular Hemoglobin Concent 33 g/dL (31-37) Red Cell Distribution Width 19.7 % (11.5-14.5) Platelet Count 183 x10^3/uL (140-400) Neutrophils (%) (Auto) 85 % (31-73) Lymphocytes (%) (Auto) 8 % (24-48) Monocytes (%) (Auto) 7 % (0-9) Eosinophils (%) (Auto) 0 % (0-3) Basophils (%) (Auto) 0 % (0-3) Neutrophils # (Auto) 7.7 x10^3uL (1.8-7.7) Lymphocytes # (Auto) 0.7 x10^3/uL (1.0-4.8) Monocytes # (Auto) 0.6 x10^3/uL (0.0-1.1) Eosinophils # (Auto) 0.0 x10^3/uL (0.0-0.7) Basophils # (Auto) 0.0 x10^3/uL (0.0-0.2) Sodium Level 139 mmol/L (136-145) Potassium Level 4.2 mmol/L (3.5-5.1) Chloride Level 98 mmol/L (98-107) Carbon Dioxide Level 34 mmol/L (21-32) Anion Gap 7 (6-14) Blood Urea Nitrogen 52 mg/dL (8-26) Creatinine 3.2 mg/dL (0.7-1.3) Estimated GFR (Cockcroft-Gault) 18.8 Glucose Level 133 mg/dL (70-99) Calcium Level 8.3 mg/dL (8.5-10.1) Magnesium Level 2.6 mg/dL (1.8-2.4) Meds Current Medications Atorvastatin Calcium (Lipitor) 40 mg QHS PO Last administered on 01/24/17 21: 21; Start 01/24/17 at 21:00 Azithromycin (Zithromax) 250 mg DAILY PO Last administered on 01/25/17 08:12; Start 01/24/17 at 15:45 Diphenhydramine HCl (Benadryl) 25 mg 1X PRN PRN IV ITCHING; Start 01/24/17 at 14:45; Stop 01/25/17 at 14:44 Diphenhydramine HCl (Benadryl) 25 mg 1X PRN PRN IV ITCHING; Start 01/24/17 at 14:45; Stop 01/25/17 at 14:44 Dobutamine HCl/ Dextrose 250 ml @ 10.5 mls/hr CONT PRN IV SEE I/O RECORD Last administered on 01/24/17 12:37; Start 01/24/17 at 12:30 Heparin Sodium (Porcine) (Heparin Sodium) 2,600 unit 1X ONCE INT CAT Last administered on 01/24/17 13:46; Start 01/24/17 at 13:45; Stop 01/24/17 at 13:46 ; Status DC Heparin Sodium (Porcine) (Heparin Sodium) 10,000 unit STK-MED ONCE .ROUTE ; Start 01/24/17 at 13:08; Stop 01/24/17 at 13:09; Status DC Heparin Sodium/ Sodium Chloride 500 ml @ As Directed STK-MED ONCE .ROUTE ; Start 01/24/17 at 13:08; Stop 01/24/17 at 13:09; Status DC Heparin Sodium/ Sodium Chloride 1,000 unit 1X ONCE IV ; Start 01/24/17 at 13:45 ; Stop 01/24/17 at 13:46; Status DC Info (PHARMACY MONITORING -- do not chart) 1 each PRN DAILY PRN MC SEE COMMENTS ; Start 01/24/17 at 14:45 Lidocaine/Sodium Bicarbonate (Buffered Lidocaine 1%) 20 ml 1X ONCE IJ Last administered on 01/24/17t 13:45; Start 01/24/17 at 13:45; Stop 01/24/17 at 13:46 ; Status DC Lidocaine/Sodium Bicarbonate (Buffered Lidocaine 1%) 20 ml STK-MED ONCE IJ ; Start 01/24/17 at 13:08; Stop 01/24/17 at 13:09; Status DC Sodium Chloride 1,000 ml @ 400 mls/hr Q2H30M PRN IV PATENCY; Start 01/24/17 at 14:38; Stop 01/25/17 at 02:37; Status DC Sodium Chloride 1,000 ml @ 1,000 mls/hr Q1H PRN IV hypotension; Start 01/24/17 at 14:38; Stop 01/24/17 at 20:37; Status DC Sodium Chloride (Normal Saline Flush) 10 ml 1X PRN PRN IV AP catheter pack; Start 01/24/17 at 14:45; Stop 01/25/17 at 14:44 Sodium Chloride (Normal Saline Flush) 10 ml 1X PRN PRN IV PRIMARY CARE COORDINATOR catheter pack; Start 01/24/17 at 14:45; Stop 01/25/17 at 14:44 Assessment Assessment IMPRESSION: 1. 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 ARF WILNER ATN diuretics with underlying CKD II 3. R moderate pleural effusion underlying R sided heart failure 4. metabolic encephalopathy 5. leukocytosis w/o fever 6. Coronary artery disease. with h/o stent/CABG 7. History of myocardial infarction.>8wk 7. Hyperlipidemia. 8. History of colon cancer with colon resection. 9. Diabetes mellitus type 2, not controlled. poor compliance with diet 10. AFchronic eliquis AICD 11. mod MR 12. HTN 13. hyperkalemia PLAN: a/c CHF Lasix 40mg IV x1 cardiology consult daily wt IO admit wt not obtained 01/24 154.4# 01/25 149.13 BNP 32179 edema LE-venous doppler report negative ECHO 01/24 EF 10-15%, grade IV diastolic, mod MR TR mild AR Pulmonic regurg, severe pulmonary HTN, CO 20-30% Dobutamine 5mcg 01/24 ARF WILNER ATN nephrology consult renal US negative Admit Na 137 01/25 139 K 4.6 4.2 BUN 79 52 Cr 4.4 3.2 Mg 3.2 2.6 Procalcitonin 0.2 TCD placed 01/24 with 1st HD completed 01/25 KCL and Mg replacements stopped 01/24 Dyspnea multifactorial pulmonary consult Acute bronchitis pleural effusion-thoracentesis planned -eliquis needs held for 48h prior to procedure WBC 15.5 01/25 9.0 ID consult empiric antibiotics: zithromax IV x1, zosyn IV , Zyvox po 01/24 nebulizer treatments 01/25 ID continue zyvox, zosyn, and zithromax po abnormal TSH acute illness-re eval OP in 2-3 months AF Eliquis stopped prior to thoracentesis-resume post procedure CAD ASA and Plavix discontinued-resume post procedure metabolic encephalopathy monitor DVT/GI prophylaxis SCD/ELEUTERIO PPI For further plan of care, please refer to the orders. Plan Plan IMPRESSION: 1. 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 ARF WILNER ATN diuretics with underlying CKD II 3. R moderate pleural effusion 4. metabolic encephalopathy 5. leukocytosis w/o fever 6. Coronary artery disease. with h/o stent/CABG 7. History of myocardial infarction.>8wk 7. Hyperlipidemia. 8. History of colon cancer with colon resection. 9. Diabetes mellitus type 2, not controlled. poor compliance with diet 10. AFchronic eliquis AICD 11. mod MR 12. HTN 13. hyperkalemia PLAN: a/c CHF Lasix 40mg IV x1 cardiology consult daily wt IO admit wt not obtained 01/24 154.4# BNP 72753 edema LE-venous doppler report pending ARF WILNER ATN nephrology consult renal US negative Admit Na 137 01/24 136 K 4.6 5.8 BUN 79 96 Cr 4.4 5.1 Mg 3.2 Procalcitonin 0.23 may need dialysis KCL and Mg replacements stopped Dyspnea multifactorial pulmonary consult Acute bronchitis pleural effusion-thoracentesis planned -eliquis needs held for 48h prior to procedure WBC 15.5 01/24 12.9 ID consult empiric antibiotics: zithromax x1, zosyn IV , Zyvox po. nebulizer treatments abnormal TSH acute illness-re eval OP in 2-3 months AF Eliquis stopped prior to thoracentesis-resume post procedure CAD ASA and Plavix discontinued-resume post procedure metabolic encephalopathy monitor DVT/GI prophylaxis SCD/ELEUTERIO PPI For further plan of care, please refer to the orders. For more details regarding further plans, please refer to the orders. Provider Note Provider Note The patient was seen and examined by me. Chart reviewed and plan of care formulated. Discussed with, reviewed and agree with MANAGER R D's notes, plan of care and orders with modifications as necessary. For more details regarding further plans, please refer to the orders. D/w patient,.Will need dialysis. Dr. Foster note recopied for HP-see Provider note 01/24/17 TOM FOSTER MD 01/25/17 1102: IM PROGRESS NOTES- Assessment Assessment D/w ,. Hemodialysis,IV dobutamine,thoracentesis Saturday. The patient was seen and examined by me. Chart reviewed and plan of care formulated. Discussed with, reviewed and agree with MANAGER R D's notes, plan of care and orders with modifications as necessary. For more details regarding further plans, please refer to the orders. NEVA LOONEY APRN Jan 25, 2017 08:54 TOM FOSTER MD Jan 25, 2017 11:02
[2017-01-25] MEDS ORDERED: IV NORMAL SALINE 1000ML BAG 1,000 ML IV PRN ×2 (09:05)
[2017-01-25] MEDS ORDERED: DIALYSIS PATIENT. MC PRN (09:15)
[2017-01-25] MEDS ORDERED: diphenhydrAMINE 50 MG/ML VIAL IV PRN ×2 (09:15)
[2017-01-25] MEDS ORDERED: 0.9 % SODIUM CHLORIDE 10 ML DISP.SYRIN. IV PRN ×2 (09:15)
--- NOTE | 2017-01-25 10:24 | PDOC ---
Infectious Disease Note Subjective Subjective Comfortable, denies pain, SOA at rest or chest discomfort Mild cough Better since admit ROS ROS GEN: Denies fevers, chills, sweats GI: Denies n/v/d NEURO: Denies confusion, dizziness Vital Sign Vital Signs Vital Signs Date Time Temp Pulse Resp B/P (MAP) Pulse Ox O2 Delivery O2 Flow Rate FiO2 01/25/17 08:12 66 122/66 01/25/17 07:46 Nasal Cannula 2.0 01/25/17 07:00 97.5 22 96 97.5 Physical Exam PHYSICAL EXAM GENERAL: Propped up in bed, relaxed appearance, dialyzing HEENT: Oral mucosa pink NECK: Supple. LUNGS: Diminished aeration right lower lung leon. Nonlabored. HEART: Normal S1 and S2. Left-sided AICD. ABDOMEN: Bowel sounds are present, soft, nontender. EXTREMITIES: Bilateral lower extremity edema. No cyanosis. SKIN: Without rash. Warm to touch. NEUROLOGIC: Awake and oriented x 3. No focal deficits appreciated. RUE-PICC. clean RIJ/temp HDC (01/24). clean Labs Lab Laboratory Tests Test 01/24/17 10:30 01/24/17 11:39 01/24/17 18:03 01/24/17 21:29 Urine Collection Type Unknown Urine Color Yellow Urine Clarity Cloudy Urine pH 5.0 Urine Specific [place] 1.015 Urine Protein 100 mg/dL (NEG-TRACE) Urine Glucose (UA) Negative mg/dL (NEG) Urine Ketones (Stick) Negative mg/dL (NEG) Urine Blood Negative (NEG) Urine Nitrite Negative (NEG) Urine Bilirubin Negative (NEG) Urine Urobilinogen Dipstick 0.2 mg/dL (0.2 mg/dL) Urine Leukocyte Esterase Negative (NEG) Urine RBC 1-2 /HPF (0-2) Urine WBC 1-4 /HPF (0-4) Urine Squamous Epithelial Cells Few /LPF Urine Bacteria Moderate /HPF (0-FEW) Urine Hyaline Casts Moderate /HPF Urine Mucus Slight /LPF Glucose (Fingerstick) 144 mg/dL (70-99) 94 mg/dL (70-99) 188 mg/dL (70-99) Test 01/25/17 05:55 01/25/17 08:02 White Blood Count 9.0 x10^3/uL (4.0-11.0) Red Blood Count 3.41 x10^6/uL (4.30-5.70) Hemoglobin 9.1 g/dL (13.0-17.5) Hematocrit 27.2 % (39.0-53.0) Mean Corpuscular Volume 80 fL (79-100) Mean Corpuscular Hemoglobin 27 pg (25-35) Mean Corpuscular Hemoglobin Concent 33 g/dL (31-37) Red Cell Distribution Width 19.7 % (11.5-14.5) Platelet Count 183 x10^3/uL (140-400) Neutrophils (%) (Auto) 85 % (31-73) Lymphocytes (%) (Auto) 8 % (24-48) Monocytes (%) (Auto) 7 % (0-9) Eosinophils (%) (Auto) 0 % (0-3) Basophils (%) (Auto) 0 % (0-3) Neutrophils # (Auto) 7.7 x10^3uL (1.8-7.7) Lymphocytes # (Auto) 0.7 x10^3/uL (1.0-4.8) Monocytes # (Auto) 0.6 x10^3/uL (0.0-1.1) Eosinophils # (Auto) 0.0 x10^3/uL (0.0-0.7) Basophils # (Auto) 0.0 x10^3/uL (0.0-0.2) Sodium Level 139 mmol/L (136-145) Potassium Level 4.2 mmol/L (3.5-5.1) Chloride Level 98 mmol/L (98-107) Carbon Dioxide Level 34 mmol/L (21-32) Anion Gap 7 (6-14) Blood Urea Nitrogen 52 mg/dL (8-26) Creatinine 3.2 mg/dL (0.7-1.3) Estimated GFR (Cockcroft-Gault) 18.8 Glucose Level 133 mg/dL (70-99) Calcium Level 8.3 mg/dL (8.5-10.1) Magnesium Level 2.6 mg/dL (1.8-2.4) Glucose (Fingerstick) 133 mg/dL (70-99) Micro BLOOD CULTURE Preliminary NO GROWTH AFTER 1 DAY Objective Assessment Leukocytosis, improving Right pleural effusion Acute on chronic CHF WILNER on CKD. Now on HD Severe cardiomyopathy w/EF 10-15% DM II Plan Plan of Care Zyvox, Zosyn and Azithromycin given WBC/infiltrate and risk of pneumonia as he is improving -recently finished a 7 day course of abx for some sort of insect bite Await CT guided thoracentesis Monitor labs and cultures Supportive care Will be available for questions over the weekend Attending Co-Sign Attending Co-Sign The patient was seen and interviewed as well as examined at the bedside. The chart was reviewed. The case was discussed. Agree with the plan of care. ZANA PATEL APRN Jan 25, 2017 10:24 CLINTON ABRAHAM MD Jan 25, 2017 14:06
--- NOTE | 2017-01-25 11:33 | PDOC ---
Renal-Progress Notes Subjective Notes Notes NO COMPLAINTS History of Present Illness Hx of present illness NO CHANGES Vitals Vitals Vital Signs Date Time Temp Pulse Resp B/P (MAP) Pulse Ox O2 Delivery O2 Flow Rate FiO2 01/25/17 08:12 66 122/66 01/25/17 07:46 Nasal Cannula 2.0 01/25/17 07:00 97.5 22 96 97.5 Weight Weight [ ] I.O. Intake and Output Intake and Output 01/25/17 07:00 Intake Total 1139 ml Output Total 275 ml Balance 864 ml Intake Oral 900 ml Other 239 ml Output Urine Total 275 ml # Voids 1 Labs Labs Laboratory Tests Test 01/24/17 11:39 01/24/17 18:03 01/24/17 21:29 01/25/17 05:55 Glucose (Fingerstick) 144 mg/dL (70-99) 94 mg/dL (70-99) 188 mg/dL (70-99) White Blood Count 9.0 x10^3/uL (4.0-11.0) Red Blood Count 3.41 x10^6/uL (4.30-5.70) Hemoglobin 9.1 g/dL (13.0-17.5) Hematocrit 27.2 % (39.0-53.0) Mean Corpuscular Volume 80 fL (79-100) Mean Corpuscular Hemoglobin 27 pg (25-35) Mean Corpuscular Hemoglobin Concent 33 g/dL (31-37) Red Cell Distribution Width 19.7 % (11.5-14.5) Platelet Count 183 x10^3/uL (140-400) Neutrophils (%) (Auto) 85 % (31-73) Lymphocytes (%) (Auto) 8 % (24-48) Monocytes (%) (Auto) 7 % (0-9) Eosinophils (%) (Auto) 0 % (0-3) Basophils (%) (Auto) 0 % (0-3) Neutrophils # (Auto) 7.7 x10^3uL (1.8-7.7) Lymphocytes # (Auto) 0.7 x10^3/uL (1.0-4.8) Monocytes # (Auto) 0.6 x10^3/uL (0.0-1.1) Eosinophils # (Auto) 0.0 x10^3/uL (0.0-0.7) Basophils # (Auto) 0.0 x10^3/uL (0.0-0.2) Sodium Level 139 mmol/L (136-145) Potassium Level 4.2 mmol/L (3.5-5.1) Chloride Level 98 mmol/L (98-107) Carbon Dioxide Level 34 mmol/L (21-32) Anion Gap 7 (6-14) Blood Urea Nitrogen 52 mg/dL (8-26) Creatinine 3.2 mg/dL (0.7-1.3) Estimated GFR (Cockcroft-Gault) 18.8 Glucose Level 133 mg/dL (70-99) Calcium Level 8.3 mg/dL (8.5-10.1) Magnesium Level 2.6 mg/dL (1.8-2.4) Test 01/25/17 08:02 Glucose (Fingerstick) 133 mg/dL (70-99) Micro Micro Microbiology 01/23/17 Blood Culture - Preliminary, Resulted NO GROWTH AFTER 1 DAY Review of Systems Constitutional: yes: alert, oriented Ears/Nose/Throat: Yes: no symptom reported Eyes: Yes: no symptom reported Pulmonary: Yes dyspnea Cardiovascular: Yes edema Genitourinary: Yes: no symptom reported Musculoskeletal: Yes: muscle stiffness Skin: Yes no symptom reported Hematologic/Lymphatic: Yes: no symptom reported Physical Exam General Appearance: no apparent distress Skin: warm Respiratory: decreased breath sounds Heart: S1S2, no rubs Abdomen: soft, bowel sounds present Extremities: edema Neurology: alert, oriented, follow commands Assessment Assessment IMP CKD STAGE 3 TO 4 WILNER DUE TO DECREASED RBF HYPERKALEMIA-BETTER ANEMIA SEVERE CM WITH EF 10-15% CAD HX AFIB-PPM HX PLAN ON DOBUTAMINE GTT HD AGAIN TODAY UF GENTLY TOLERATED AFTER LOAD REDUCTION BY CARDIOLOGY AT SOME POINT WILL CONSIDER RESUMING ENTRESTO CONT TO HOLD METFORMIN D/W ATTENDING JETT SHIELDS MD Jan 25, 2017 11:33
--- NOTE | 2017-01-25 12:19 | PDOC ---
PULMONARY PROGRESS NOTES Subjective less soa Vitals Vital Signs Date Time Temp Pulse Resp B/P (MAP) Pulse Ox O2 Delivery O2 Flow Rate FiO2 01/25/17 08:12 66 122/66 01/25/17 07:46 Nasal Cannula 2.0 01/25/17 07:00 97.5 22 96 97.5 General: Alert, No acute distress Lungs: Other (decrease bs Right base) Cardiovascular: S1 Abdomen: Soft Neuro Exam: Alert Extremities: Other (2+edema) Labs Laboratory Tests Test 01/23/17 12:26 01/23/17 17:35 01/23/17 20:40 01/24/17 05:30 Glucose (Fingerstick) 122 mg/dL (70-99) 175 mg/dL (70-99) 186 mg/dL (70-99) White Blood Count 12.9 x10^3/uL (4.0-11.0) Red Blood Count 3.94 x10^6/uL (4.30-5.70) Hemoglobin 10.2 g/dL (13.0-17.5) Hematocrit 31.6 % (39.0-53.0) Mean Corpuscular Volume 80 fL (79-100) Mean Corpuscular Hemoglobin 26 pg (25-35) Mean Corpuscular Hemoglobin Concent 32 g/dL (31-37) Red Cell Distribution Width 19.9 % (11.5-14.5) Platelet Count 258 x10^3/uL (140-400) Neutrophils (%) (Auto) 89 % (31-73) Lymphocytes (%) (Auto) 6 % (24-48) Monocytes (%) (Auto) 5 % (0-9) Eosinophils (%) (Auto) 0 % (0-3) Basophils (%) (Auto) 1 % (0-3) Neutrophils # (Auto) 11.5 x10^3uL (1.8-7.7) Lymphocytes # (Auto) 0.8 x10^3/uL (1.0-4.8) Monocytes # (Auto) 0.6 x10^3/uL (0.0-1.1) Eosinophils # (Auto) 0.0 x10^3/uL (0.0-0.7) Basophils # (Auto) 0.1 x10^3/uL (0.0-0.2) Sodium Level 136 mmol/L (136-145) Potassium Level 5.8 mmol/L (3.5-5.1) Chloride Level 96 mmol/L (98-107) Carbon Dioxide Level 25 mmol/L (21-32) Anion Gap 15 (6-14) Blood Urea Nitrogen 96 mg/dL (8-26) Creatinine 5.1 mg/dL (0.7-1.3) Estimated GFR (Cockcroft-Gault) 11.0 Glucose Level 160 mg/dL (70-99) Hemoglobin A1c 6.8 % (4.8-5.6) Calcium Level 9.5 mg/dL (8.5-10.1) Triglycerides Level 98 mg/dL (0-150) Cholesterol Level 77 mg/dL (0-200) LDL Cholesterol, Calculated 31 mg/dL (0-100) VLDL Cholesterol, Calculated 20 mg/dL (0-40) Non-HDL Cholesterol Calculated 51 mg/dL (0-129) HDL Cholesterol 26 mg/dL (40-60) Cholesterol/HDL Ratio 3.0 Thyroid Stimulating Hormone (TSH) 5.398 uIU/mL (0.358-3.74) Test 01/24/17 08:59 01/24/17 10:30 01/24/17 11:39 01/24/17 18:03 Glucose (Fingerstick) 168 mg/dL (70-99) 144 mg/dL (70-99) 94 mg/dL (70-99) Urine Collection Type Unknown Urine Color Yellow Urine Clarity Cloudy Urine pH 5.0 Urine Specific [place] 1.015 Urine Protein 100 mg/dL (NEG-TRACE) Urine Glucose (UA) Negative mg/dL (NEG) Urine Ketones (Stick) Negative mg/dL (NEG) Urine Blood Negative (NEG) Urine Nitrite Negative (NEG) Urine Bilirubin Negative (NEG) Urine Urobilinogen Dipstick 0.2 mg/dL (0.2 mg/dL) Urine Leukocyte Esterase Negative (NEG) Urine RBC 1-2 /HPF (0-2) Urine WBC 1-4 /HPF (0-4) Urine Squamous Epithelial Cells Few /LPF Urine Bacteria Moderate /HPF (0-FEW) Urine Hyaline Casts Moderate /HPF Urine Mucus Slight /LPF Test 01/24/17 21:29 01/25/17 05:55 01/25/17 08:02 Glucose (Fingerstick) 188 mg/dL (70-99) 133 mg/dL (70-99) White Blood Count 9.0 x10^3/uL (4.0-11.0) Red Blood Count 3.41 x10^6/uL (4.30-5.70) Hemoglobin 9.1 g/dL (13.0-17.5) Hematocrit 27.2 % (39.0-53.0) Mean Corpuscular Volume 80 fL (79-100) Mean Corpuscular Hemoglobin 27 pg (25-35) Mean Corpuscular Hemoglobin Concent 33 g/dL (31-37) Red Cell Distribution Width 19.7 % (11.5-14.5) Platelet Count 183 x10^3/uL (140-400) Neutrophils (%) (Auto) 85 % (31-73) Lymphocytes (%) (Auto) 8 % (24-48) Monocytes (%) (Auto) 7 % (0-9) Eosinophils (%) (Auto) 0 % (0-3) Basophils (%) (Auto) 0 % (0-3) Neutrophils # (Auto) 7.7 x10^3uL (1.8-7.7) Lymphocytes # (Auto) 0.7 x10^3/uL (1.0-4.8) Monocytes # (Auto) 0.6 x10^3/uL (0.0-1.1) Eosinophils # (Auto) 0.0 x10^3/uL (0.0-0.7) Basophils # (Auto) 0.0 x10^3/uL (0.0-0.2) Sodium Level 139 mmol/L (136-145) Potassium Level 4.2 mmol/L (3.5-5.1) Chloride Level 98 mmol/L (98-107) Carbon Dioxide Level 34 mmol/L (21-32) Anion Gap 7 (6-14) Blood Urea Nitrogen 52 mg/dL (8-26) Creatinine 3.2 mg/dL (0.7-1.3) Estimated GFR (Cockcroft-Gault) 18.8 Glucose Level 133 mg/dL (70-99) Calcium Level 8.3 mg/dL (8.5-10.1) Magnesium Level 2.6 mg/dL (1.8-2.4) Laboratory Tests Test 01/24/17 18:03 01/24/17 21:29 01/25/17 05:55 01/25/17 08:02 Glucose (Fingerstick) 94 mg/dL (70-99) 188 mg/dL (70-99) 133 mg/dL (70-99) White Blood Count 9.0 x10^3/uL (4.0-11.0) Red Blood Count 3.41 x10^6/uL (4.30-5.70) Hemoglobin 9.1 g/dL (13.0-17.5) Hematocrit 27.2 % (39.0-53.0) Mean Corpuscular Volume 80 fL (79-100) Mean Corpuscular Hemoglobin 27 pg (25-35) Mean Corpuscular Hemoglobin Concent 33 g/dL (31-37) Red Cell Distribution Width 19.7 % (11.5-14.5) Platelet Count 183 x10^3/uL (140-400) Neutrophils (%) (Auto) 85 % (31-73) Lymphocytes (%) (Auto) 8 % (24-48) Monocytes (%) (Auto) 7 % (0-9) Eosinophils (%) (Auto) 0 % (0-3) Basophils (%) (Auto) 0 % (0-3) Neutrophils # (Auto) 7.7 x10^3uL (1.8-7.7) Lymphocytes # (Auto) 0.7 x10^3/uL (1.0-4.8) Monocytes # (Auto) 0.6 x10^3/uL (0.0-1.1) Eosinophils # (Auto) 0.0 x10^3/uL (0.0-0.7) Basophils # (Auto) 0.0 x10^3/uL (0.0-0.2) Sodium Level 139 mmol/L (136-145) Potassium Level 4.2 mmol/L (3.5-5.1) Chloride Level 98 mmol/L (98-107) Carbon Dioxide Level 34 mmol/L (21-32) Anion Gap 7 (6-14) Blood Urea Nitrogen 52 mg/dL (8-26) Creatinine 3.2 mg/dL (0.7-1.3) Estimated GFR (Cockcroft-Gault) 18.8 Glucose Level 133 mg/dL (70-99) Calcium Level 8.3 mg/dL (8.5-10.1) Magnesium Level 2.6 mg/dL (1.8-2.4) Medications Active Scripts Medications Dose Route/Sig Max Daily Dose Days Date Category Metolazone 2.5 Mg Tablet 2.5 Mg PO SATURDAY -SATURDAY PRN 01/23/17 Reported Entresto 24 mg-26 mg Tablet (Sacubitril/Valsartan) 1 Each Tablet 1 Each PO BID 01/23/17 Reported Aspir 81 (Aspirin) 81 Mg Tablet.dr 81 Mg PO 01/23/17 Reported Mag-Oxide (Magnesium Oxide) 400 Mg Tablet 1 Tab PO BID 01/23/17 Reported NITROGLYCERIN SubLingual (Nitroglycerin) 0.4 Mg Tab.subl 0.4 Mg SL PRN Q5MIN PRN 01/23/17 Reported Metoprolol Succinate ( Xl ) (Metoprolol Succinate) 25 Mg Tab.er.24h 50 Mg PO DAILY 01/23/17 Reported Eliquis (Apixaban) 5 Mg Tablet 5 Mg PO BID 01/23/17 Reported Amiodarone Hcl 200 Mg Tablet 200 Mg PO TID 04/24/16 Rx Savaysa (Edoxaban Tosylate) 60 Mg Tablet 60 Mg PO QHS 04/21/16 Reported Ola-3 Fish Oil 1,000 Mg Sfgl (Ola-3/Dha/Epa/Fish Oil) 1,000 Mg Capsule 1,000 Mg PO DAILY 10/31/15 Reported Metformin Hcl 850 Mg Tablet 850 Mg PO BIDWMEALS 10/31/15 Reported Plavix (Clopidogrel Bisulfate) 75 Mg Tablet 75 Mg PO DAILY 10/31/15 Reported Crestor (Rosuvastatin Calcium) 20 Mg Tablet 20 Mg PO HS 05/29/14 Reported Losartan Potassium 25 Mg Tablet 50 Mg PO DAILY 05/29/14 Reported Furosemide 40 Mg Tablet 40 Mg PO DAILY 05/29/14 Reported Potassium Chloride 20 Meq Tab.er.prt 20 Meq PO DAILY 05/29/14 Reported Impression . 1. Acute hypoxic respiratory failure secondary to acute on chronic systolic heart failure and moderate-sized right pleural effusion. 2. 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 3. No significant history of tobacco use. 4. Acute on chronic renal failure. Suspect secondary to poor cardiac pump function. 5. ?Pneumonia Plan . 1. awaiting thoracentesis on Saturday. hold Eliquis at least 48 hours and Plavix for at least 4 days. 2. Follow Cardiology recommendations. 3. Follow renal recommendations. dialysis 4. He probably has acute bronchitis as well and I will continue empiric antibiotics. 5. Would rec. DNR BABATUNDE THEODORE MD Jan 25, 2017 12:19
--- NOTE | 2017-01-25 20:21 | PDOC ---
Provider Note Provider Note Sitting up and watching TV and not as short of breath. Lungs show no wheezing or rales. Oedema of the legs is better. He has undergone dialysis for [address] Mayo probable dialysis tomorrow. Low-dose dobutamine. MELINDA FORTUNE MD Jan 25, 2017 20:21
[2017-01-25] MEDS: MONTELUKAST SODIUM 10 MG TABLET. PO SCH (21:26)
[2017-01-25] MEDS: ATORVASTATIN CALCIUM 40 MG TABLET. PO SCH (21:26)
[2017-01-25 23:14] LABS: HEP B SURFACE ABDY Non Reactive (.)
[2017-01-26] VITALS (21 sets, daily range): BP systolic 102–145; BP diastolic 60–81
[2017-01-26] MEDS: PIPERACILLIN/TAZOBACTAM 2.25 GM in IV NORMAL SALINE 50ML 50 ML IV SCH ×3 (05:54→21:21)
[2017-01-26 06:46] LABS: BASO % 0 % (0-3); EOS % 2 % (0-3); HEMATOCRIT 26.9 % (39.0-53.0); HEMOGLOBIN 8.5 g/dL (13.0-17.5); LYMPH # 0.7 x10^3/uL (1.0-4.8); LYMPH % 9 % (24-48); MEAN CORPUSCULAR HEMOGLOBIN 26 pg (25-35); MEAN CORPUSCULAR HGB CONC 31 g/dL (31-37); MEAN CORPUSCULAR VOLUME 81 fL (79-100); MONO % 8 % (0-9); NEUT % 81 % (31-73); PLATELET COUNT 152 x10^3/uL (140-400); RED BLOOD COUNT 3.31 x10^6/uL (4.30-5.70); RED CELL DISTRIBUTION WIDTH 19.8 % (11.5-14.5); WHITE BLOOD COUNT 7.2 x10^3/uL (4.0-11.0)
[2017-01-26 06:50] LABS: CALCIUM 8.1 mg/dL (8.5-10.1); CREATININE 2.2 mg/dL (0.7-1.3); GFR 28.9; MAGNESIUM 2.1 mg/dL (1.8-2.4); POTASSIUM 3.4 mmol/L (3.5-5.1)
[2017-01-26] MEDS: MULTIVITAMIN with MINERAL TABLET. PO SCH (07:50)
[2017-01-26] MEDS: OMEGA-3 FATTY ACIDS/FISH OIL 1,000 MG CAPSULE. PO SCH (07:50)
[2017-01-26] MEDS: AZITHROMYCIN 250 MG TABLET. PO SCH (07:50)
[2017-01-26] MEDS: METOPROLOL SUCC 24HR ER 50 MG TAB.ER.24H. PO SCH (07:50)
[2017-01-26] MEDS: LINEZOLID 600 MG TABLET PO SCH ×2 (07:51→21:21)
[2017-01-26] MEDS: INSULIN ASPART 300 UNITS/3 ML INSULN.PEN SQ SCH ×3 (07:52→16:30)
--- NOTE | 2017-01-26 08:37 | PDOC ---
KAREN-NEVA VALENZUELA [employer] 01/26/17 0837: IM PROGRESS NOTES- Subjective Subjective nose bleed started after picked scab R nare, now L nare also bleeding Objective Objective no distress Vitals Vital Signs Date Time Temp Pulse Resp B/P (MAP) Pulse Ox O2 Delivery O2 Flow Rate FiO2 01/26/17 07:50 63 131/69 01/26/17 07:30 97.3 18 97 Nasal Cannula 3.0 97.3 Input & Output Intake and Output 01/26/17 07:00 Intake Total 730 ml Output Total 200 ml Balance 530 ml Intake Oral 730 ml Output Urine Total 200 ml # Voids 2 # Bowel Movements 2 Physical Exam Physical Exam General appearance - alert, ill; appearing, and in no distress Mental Status - alert, oriented to person, place, and time, affect appropriate to mood Head - normal Nose -active bleeding bilateral nares Chest - clear to auscultation, no wheezes Heart - S1 and S2 normal, irreg Abdomen - soft, nontender, nondistended, BS + Neurological - no acute neurological deficits noted. confusion improving. Musculoskeletal - no muscular tenderness noted Extremities - decreased edema bilateral LE; still present with R>L Skin - warm and dry Labs Laboratory Tests Test 01/24/17 08:59 01/24/17 10:30 01/24/17 11:39 01/24/17 18:03 Glucose (Fingerstick) 168 mg/dL (70-99) 144 mg/dL (70-99) 94 mg/dL (70-99) Urine Collection Type Unknown Urine Color Yellow Urine Clarity Cloudy Urine pH 5.0 Urine Specific [place] 1.015 Urine Protein 100 mg/dL (NEG-TRACE) Urine Glucose (UA) Negative mg/dL (NEG) Urine Ketones (Stick) Negative mg/dL (NEG) Urine Blood Negative (NEG) Urine Nitrite Negative (NEG) Urine Bilirubin Negative (NEG) Urine Urobilinogen Dipstick 0.2 mg/dL (0.2 mg/dL) Urine Leukocyte Esterase Negative (NEG) Urine RBC 1-2 /HPF (0-2) Urine WBC 1-4 /HPF (0-4) Urine Squamous Epithelial Cells Few /LPF Urine Bacteria Moderate /HPF (0-FEW) Urine Hyaline Casts Moderate /HPF Urine Mucus Slight /LPF Test 01/24/17 21:29 01/25/17 05:55 01/25/17 08:02 01/25/17 13:20 Glucose (Fingerstick) 188 mg/dL (70-99) 133 mg/dL (70-99) 116 mg/dL (70-99) White Blood Count 9.0 x10^3/uL (4.0-11.0) Red Blood Count 3.41 x10^6/uL (4.30-5.70) Hemoglobin 9.1 g/dL (13.0-17.5) Hematocrit 27.2 % (39.0-53.0) Mean Corpuscular Volume 80 fL (79-100) Mean Corpuscular Hemoglobin 27 pg (25-35) Mean Corpuscular Hemoglobin Concent 33 g/dL (31-37) Red Cell Distribution Width 19.7 % (11.5-14.5) Platelet Count 183 x10^3/uL (140-400) Neutrophils (%) (Auto) 85 % (31-73) Lymphocytes (%) (Auto) 8 % (24-48) Monocytes (%) (Auto) 7 % (0-9) Eosinophils (%) (Auto) 0 % (0-3) Basophils (%) (Auto) 0 % (0-3) Neutrophils # (Auto) 7.7 x10^3uL (1.8-7.7) Lymphocytes # (Auto) 0.7 x10^3/uL (1.0-4.8) Monocytes # (Auto) 0.6 x10^3/uL (0.0-1.1) Eosinophils # (Auto) 0.0 x10^3/uL (0.0-0.7) Basophils # (Auto) 0.0 x10^3/uL (0.0-0.2) Sodium Level 139 mmol/L (136-145) Potassium Level 4.2 mmol/L (3.5-5.1) Chloride Level 98 mmol/L (98-107) Carbon Dioxide Level 34 mmol/L (21-32) Anion Gap 7 (6-14) Blood Urea Nitrogen 52 mg/dL (8-26) Creatinine 3.2 mg/dL (0.7-1.3) Estimated GFR (Cockcroft-Gault) 18.8 Glucose Level 133 mg/dL (70-99) Calcium Level 8.3 mg/dL (8.5-10.1) Magnesium Level 2.6 mg/dL (1.8-2.4) Test 01/25/17 16:32 01/26/17 06:30 01/26/17 07:37 Glucose (Fingerstick) 227 mg/dL (70-99) 164 mg/dL (70-99) White Blood Count 7.2 x10^3/uL (4.0-11.0) Red Blood Count 3.31 x10^6/uL (4.30-5.70) Hemoglobin 8.5 g/dL (13.0-17.5) Hematocrit 26.9 % (39.0-53.0) Mean Corpuscular Volume 81 fL (79-100) Mean Corpuscular Hemoglobin 26 pg (25-35) Mean Corpuscular Hemoglobin Concent 31 g/dL (31-37) Red Cell Distribution Width 19.8 % (11.5-14.5) Platelet Count 152 x10^3/uL (140-400) Neutrophils (%) (Auto) 81 % (31-73) Lymphocytes (%) (Auto) 9 % (24-48) Monocytes (%) (Auto) 8 % (0-9) Eosinophils (%) (Auto) 2 % (0-3) Basophils (%) (Auto) 0 % (0-3) Neutrophils # (Auto) 5.8 x10^3uL (1.8-7.7) Lymphocytes # (Auto) 0.7 x10^3/uL (1.0-4.8) Monocytes # (Auto) 0.6 x10^3/uL (0.0-1.1) Eosinophils # (Auto) 0.1 x10^3/uL (0.0-0.7) Basophils # (Auto) 0.0 x10^3/uL (0.0-0.2) Sodium Level 139 mmol/L (136-145) Potassium Level 3.4 mmol/L (3.5-5.1) Chloride Level 101 mmol/L (98-107) Carbon Dioxide Level 28 mmol/L (21-32) Anion Gap 10 (6-14) Blood Urea Nitrogen 29 mg/dL (8-26) Creatinine 2.2 mg/dL (0.7-1.3) Estimated GFR (Cockcroft-Gault) 28.9 Glucose Level 153 mg/dL (70-99) Calcium Level 8.1 mg/dL (8.5-10.1) Magnesium Level 2.1 mg/dL (1.8-2.4) Laboratory Tests Test 01/25/17 13:20 01/25/17 16:32 01/26/17 06:30 01/26/17 07:37 Glucose (Fingerstick) 116 mg/dL (70-99) 227 mg/dL (70-99) 164 mg/dL (70-99) White Blood Count 7.2 x10^3/uL (4.0-11.0) Red Blood Count 3.31 x10^6/uL (4.30-5.70) Hemoglobin 8.5 g/dL (13.0-17.5) Hematocrit 26.9 % (39.0-53.0) Mean Corpuscular Volume 81 fL (79-100) Mean Corpuscular Hemoglobin 26 pg (25-35) Mean Corpuscular Hemoglobin Concent 31 g/dL (31-37) Red Cell Distribution Width 19.8 % (11.5-14.5) Platelet Count 152 x10^3/uL (140-400) Neutrophils (%) (Auto) 81 % (31-73) Lymphocytes (%) (Auto) 9 % (24-48) Monocytes (%) (Auto) 8 % (0-9) Eosinophils (%) (Auto) 2 % (0-3) Basophils (%) (Auto) 0 % (0-3) Neutrophils # (Auto) 5.8 x10^3uL (1.8-7.7) Lymphocytes # (Auto) 0.7 x10^3/uL (1.0-4.8) Monocytes # (Auto) 0.6 x10^3/uL (0.0-1.1) Eosinophils # (Auto) 0.1 x10^3/uL (0.0-0.7) Basophils # (Auto) 0.0 x10^3/uL (0.0-0.2) Sodium Level 139 mmol/L (136-145) Potassium Level 3.4 mmol/L (3.5-5.1) Chloride Level 101 mmol/L (98-107) Carbon Dioxide Level 28 mmol/L (21-32) Anion Gap 10 (6-14) Blood Urea Nitrogen 29 mg/dL (8-26) Creatinine 2.2 mg/dL (0.7-1.3) Estimated GFR (Cockcroft-Gault) 28.9 Glucose Level 153 mg/dL (70-99) Calcium Level 8.1 mg/dL (8.5-10.1) Magnesium Level 2.1 mg/dL (1.8-2.4) Meds Current Medications Diphenhydramine HCl (Benadryl) 25 mg 1X PRN PRN IV ITCHING; Start 01/25/17 at 09:15; Stop 01/26/17 at 09:14 Diphenhydramine HCl (Benadryl) 25 mg 1X PRN PRN IV ITCHING; Start 01/25/17 at 09:15; Stop 01/26/17 at 09:14 Info (PHARMACY MONITORING -- do not chart) 1 each PRN DAILY PRN MC SEE COMMENTS ; Start 01/25/17 at 09:15; Status UNV Sodium Chloride 1,000 ml @ 400 mls/hr Q2H30M PRN IV PATENCY; Start 01/25/17 at 09:05; Stop 01/25/17 at 21:04; Status DC Sodium Chloride 1,000 ml @ 1,000 mls/hr Q1H PRN IV hypotension; Start 01/25/17 at 09:05; Stop 01/25/17 at 15:04; Status DC Sodium Chloride (Normal Saline Flush) 10 ml 1X PRN PRN IV AP catheter pack; Start 01/25/17 at 09:15; Stop 01/26/17 at 09:14 Sodium Chloride (Normal Saline Flush) 10 ml 1X PRN PRN IV [employer] catheter pack; Start 01/25/17 at 09:15; Stop 01/26/17 at 09:14 Assessment Assessment Assessment IMPRESSION: 1. 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 ARF WILNER ATN diuretics with underlying CKD II 3. R moderate pleural effusion underlying R sided heart failure 4. metabolic encephalopathy 5. leukocytosis w/o fever 6. Coronary artery disease. with h/o stent/CABG 7. History of myocardial infarction.>8wk 7. Hyperlipidemia. 8. History of colon cancer with colon resection. 9. Diabetes mellitus type 2, not controlled. poor compliance with diet 10. AFchronic eliquis AICD 11. mod MR 12. HTN 13. hyperkalemia 14. epitaxis PLAN: a/c CHF Lasix 40mg IV x1 cardiology consult daily wt IO admit wt not obtained 01/24 154.4# 01/25 149.13 01/26 147.31 BNP 42124 edema LE-venous doppler report negative ECHO 01/24 EF 10-15%, grade IV diastolic, mod MR TR mild AR Pulmonic regurg, severe pulmonary HTN, CO 20-30% Dobutamine 5mcg 01/24 ARF WILNER ATN nephrology consult renal US negative Admit Na 137 01/26 139 K 4.6 3.4 BUN 79 29 Cr 4.4 29 Mg 3.2 2.2 Procalcitonin 0.2 TCD placed 01/24 with 1st HD completed 01/25 KCL and Mg replacements stopped 01/24 Dyspnea multifactorial pulmonary consult Acute bronchitis pleural effusion-thoracentesis planned -eliquis needs held for 48h prior to procedure planned for Saturday WBC 15.5 01/26 7.2 ID consult empiric antibiotics: zithromax IV x1, zosyn IV , Zyvox po 01/24 nebulizer treatments 01/25 ID continue zyvox, zosyn, and zithromax po abnormal TSH acute illness-re eval OP in 2-3 months AF Eliquis stopped prior to thoracentesis-resume post procedure Thoracentesis not due until Saturday CAD ASA and Plavix discontinued-resume post procedure metabolic encephalopathy monitor DVT/GI prophylaxis SCD/ELEUTERIO PPI HTN SBP 130-140s on dobutamine infusion epitaxsis ENT consult off anticoag Plavix and ASA since admission 2L with NC in mouth 93% d/w Dr. Ortiz in ED, she cannot treat at this time Instructed to blow nose, 2-3 sprays afrin, clamp nose for 15min and release. For further plan of care, please refer to the orders. Plan Plan For more details regarding further plans, please refer to the orders. TOM FOSTER MD 01/26/17 1047: IM PROGRESS NOTES- Assessment Assessment The patient was seen and examined by me. Chart reviewed and plan of care formulated. Discussed with, reviewed and agree with LIME FILTER OPERATOR's notes, plan of care and orders with modifications as necessary. For more details regarding further plans, please refer to the orders. NEVA LOONEY APRN Jan 26, 2017 08:37 TOM FOSTER MD Jan 26, 2017 10:47
[2017-01-26] MEDS ORDERED: OXYMETAZOLINE 0.05% NASAL SPRAY 30ML BOTTLE. NS ONE (08:45)
[2017-01-26] MEDS ORDERED: OXYMETAZOLINE 0.05% NASAL SPRAY 30ML BOTTLE. NS PRN (09:45)
--- NOTE | 2017-01-26 11:03 | PDOC ---
Renal-Progress Notes Subjective Notes Notes FEELING SOME BETTER, STILL HAS SWELLING History of Present Illness Hx of present illness STABLE Vitals Vitals Vital Signs Date Time Temp Pulse Resp B/P (MAP) Pulse Ox O2 Delivery O2 Flow Rate FiO2 01/26/17 08:00 Nasal Cannula 3.0 01/26/17 07:50 63 131/69 01/26/17 07:30 97.3 18 97 97.3 Weight Weight [ ] I.O. Intake and Output Intake and Output 01/26/17 07:00 Intake Total 730 ml Output Total 200 ml Balance 530 ml Intake Oral 730 ml Output Urine Total 200 ml # Voids 2 # Bowel Movements 2 Labs Labs Laboratory Tests Test 01/25/17 13:20 01/25/17 16:32 01/26/17 06:30 01/26/17 07:37 Glucose (Fingerstick) 116 mg/dL (70-99) 227 mg/dL (70-99) 164 mg/dL (70-99) White Blood Count 7.2 x10^3/uL (4.0-11.0) Red Blood Count 3.31 x10^6/uL (4.30-5.70) Hemoglobin 8.5 g/dL (13.0-17.5) Hematocrit 26.9 % (39.0-53.0) Mean Corpuscular Volume 81 fL (79-100) Mean Corpuscular Hemoglobin 26 pg (25-35) Mean Corpuscular Hemoglobin Concent 31 g/dL (31-37) Red Cell Distribution Width 19.8 % (11.5-14.5) Platelet Count 152 x10^3/uL (140-400) Neutrophils (%) (Auto) 81 % (31-73) Lymphocytes (%) (Auto) 9 % (24-48) Monocytes (%) (Auto) 8 % (0-9) Eosinophils (%) (Auto) 2 % (0-3) Basophils (%) (Auto) 0 % (0-3) Neutrophils # (Auto) 5.8 x10^3uL (1.8-7.7) Lymphocytes # (Auto) 0.7 x10^3/uL (1.0-4.8) Monocytes # (Auto) 0.6 x10^3/uL (0.0-1.1) Eosinophils # (Auto) 0.1 x10^3/uL (0.0-0.7) Basophils # (Auto) 0.0 x10^3/uL (0.0-0.2) Sodium Level 139 mmol/L (136-145) Potassium Level 3.4 mmol/L (3.5-5.1) Chloride Level 101 mmol/L (98-107) Carbon Dioxide Level 28 mmol/L (21-32) Anion Gap 10 (6-14) Blood Urea Nitrogen 29 mg/dL (8-26) Creatinine 2.2 mg/dL (0.7-1.3) Estimated GFR (Cockcroft-Gault) 28.9 Glucose Level 153 mg/dL (70-99) Calcium Level 8.1 mg/dL (8.5-10.1) Magnesium Level 2.1 mg/dL (1.8-2.4) Micro Micro Microbiology 01/23/17 Blood Culture - Preliminary, Resulted NO GROWTH AFTER 2 DAYS 01/24/17 Urine Culture - Preliminary, Resulted 01/24/17 Urine Culture Result 1 (CARMEN) - Preliminary, Resulted Review of Systems Constitutional: yes: alert, oriented Ears/Nose/Throat: Yes: no symptom reported Eyes: Yes: no symptom reported Pulmonary: Yes dyspnea Cardiovascular: Yes edema Genitourinary: Yes: no symptom reported Musculoskeletal: Yes: muscle stiffness Skin: Yes no symptom reported Hematologic/Lymphatic: Yes: no symptom reported Physical Exam General Appearance: no apparent distress Skin: warm Respiratory: decreased breath sounds Heart: S1S2, no rubs Abdomen: soft, bowel sounds present Extremities: edema Neurology: alert, oriented, follow commands Assessment Assessment IMP CKD STAGE 3 TO 4-BASELINE CR ABOUT 2.0 WILNER DUE TO DECREASED RBF HYPERKALEMIA-BETTER ANEMIA SEVERE CM WITH EF 10-15% CAD HX AFIB-PPM HX PLAN ON DOBUTAMINE GTT HD AGAIN TODAY UF GENTLY TOLERATED ABOUT 1.5 LITERS START ORAL LASIX AT SOME POINT WILL CONSIDER RESUMING ENTRESTO CONT TO HOLD METFORMIN JETT SHIELDS MD Jan 26, 2017 11:03
--- NOTE | 2017-01-26 11:21 | PDOC ---
PULMONARY PROGRESS NOTES Subjective less soa Vitals Vital Signs Date Time Temp Pulse Resp B/P (MAP) Pulse Ox O2 Delivery O2 Flow Rate FiO2 01/26/17 11:00 98.4 60 18 106/60 (75) 97 Nasal Cannula 3.0 98.4 General: Alert, No acute distress Lungs: Other (decrease bs Right base) Cardiovascular: S1 Abdomen: Soft Neuro Exam: Alert Extremities: Other (2+edema) Labs Laboratory Tests Test 01/24/17 11:39 01/24/17 18:03 01/24/17 21:29 01/25/17 05:55 Glucose (Fingerstick) 144 mg/dL (70-99) 94 mg/dL (70-99) 188 mg/dL (70-99) White Blood Count 9.0 x10^3/uL (4.0-11.0) Red Blood Count 3.41 x10^6/uL (4.30-5.70) Hemoglobin 9.1 g/dL (13.0-17.5) Hematocrit 27.2 % (39.0-53.0) Mean Corpuscular Volume 80 fL (79-100) Mean Corpuscular Hemoglobin 27 pg (25-35) Mean Corpuscular Hemoglobin Concent 33 g/dL (31-37) Red Cell Distribution Width 19.7 % (11.5-14.5) Platelet Count 183 x10^3/uL (140-400) Neutrophils (%) (Auto) 85 % (31-73) Lymphocytes (%) (Auto) 8 % (24-48) Monocytes (%) (Auto) 7 % (0-9) Eosinophils (%) (Auto) 0 % (0-3) Basophils (%) (Auto) 0 % (0-3) Neutrophils # (Auto) 7.7 x10^3uL (1.8-7.7) Lymphocytes # (Auto) 0.7 x10^3/uL (1.0-4.8) Monocytes # (Auto) 0.6 x10^3/uL (0.0-1.1) Eosinophils # (Auto) 0.0 x10^3/uL (0.0-0.7) Basophils # (Auto) 0.0 x10^3/uL (0.0-0.2) Sodium Level 139 mmol/L (136-145) Potassium Level 4.2 mmol/L (3.5-5.1) Chloride Level 98 mmol/L (98-107) Carbon Dioxide Level 34 mmol/L (21-32) Anion Gap 7 (6-14) Blood Urea Nitrogen 52 mg/dL (8-26) Creatinine 3.2 mg/dL (0.7-1.3) Estimated GFR (Cockcroft-Gault) 18.8 Glucose Level 133 mg/dL (70-99) Calcium Level 8.3 mg/dL (8.5-10.1) Magnesium Level 2.6 mg/dL (1.8-2.4) Test 01/25/17 08:02 01/25/17 13:20 01/25/17 16:32 01/26/17 06:30 Glucose (Fingerstick) 133 mg/dL (70-99) 116 mg/dL (70-99) 227 mg/dL (70-99) White Blood Count 7.2 x10^3/uL (4.0-11.0) Red Blood Count 3.31 x10^6/uL (4.30-5.70) Hemoglobin 8.5 g/dL (13.0-17.5) Hematocrit 26.9 % (39.0-53.0) Mean Corpuscular Volume 81 fL (79-100) Mean Corpuscular Hemoglobin 26 pg (25-35) Mean Corpuscular Hemoglobin Concent 31 g/dL (31-37) Red Cell Distribution Width 19.8 % (11.5-14.5) Platelet Count 152 x10^3/uL (140-400) Neutrophils (%) (Auto) 81 % (31-73) Lymphocytes (%) (Auto) 9 % (24-48) Monocytes (%) (Auto) 8 % (0-9) Eosinophils (%) (Auto) 2 % (0-3) Basophils (%) (Auto) 0 % (0-3) Neutrophils # (Auto) 5.8 x10^3uL (1.8-7.7) Lymphocytes # (Auto) 0.7 x10^3/uL (1.0-4.8) Monocytes # (Auto) 0.6 x10^3/uL (0.0-1.1) Eosinophils # (Auto) 0.1 x10^3/uL (0.0-0.7) Basophils # (Auto) 0.0 x10^3/uL (0.0-0.2) Sodium Level 139 mmol/L (136-145) Potassium Level 3.4 mmol/L (3.5-5.1) Chloride Level 101 mmol/L (98-107) Carbon Dioxide Level 28 mmol/L (21-32) Anion Gap 10 (6-14) Blood Urea Nitrogen 29 mg/dL (8-26) Creatinine 2.2 mg/dL (0.7-1.3) Estimated GFR (Cockcroft-Gault) 28.9 Glucose Level 153 mg/dL (70-99) Calcium Level 8.1 mg/dL (8.5-10.1) Magnesium Level 2.1 mg/dL (1.8-2.4) Test 01/26/17 07:37 Glucose (Fingerstick) 164 mg/dL (70-99) Laboratory Tests Test 01/25/17 13:20 01/25/17 16:32 01/26/17 06:30 01/26/17 07:37 Glucose (Fingerstick) 116 mg/dL (70-99) 227 mg/dL (70-99) 164 mg/dL (70-99) White Blood Count 7.2 x10^3/uL (4.0-11.0) Red Blood Count 3.31 x10^6/uL (4.30-5.70) Hemoglobin 8.5 g/dL (13.0-17.5) Hematocrit 26.9 % (39.0-53.0) Mean Corpuscular Volume 81 fL (79-100) Mean Corpuscular Hemoglobin 26 pg (25-35) Mean Corpuscular Hemoglobin Concent 31 g/dL (31-37) Red Cell Distribution Width 19.8 % (11.5-14.5) Platelet Count 152 x10^3/uL (140-400) Neutrophils (%) (Auto) 81 % (31-73) Lymphocytes (%) (Auto) 9 % (24-48) Monocytes (%) (Auto) 8 % (0-9) Eosinophils (%) (Auto) 2 % (0-3) Basophils (%) (Auto) 0 % (0-3) Neutrophils # (Auto) 5.8 x10^3uL (1.8-7.7) Lymphocytes # (Auto) 0.7 x10^3/uL (1.0-4.8) Monocytes # (Auto) 0.6 x10^3/uL (0.0-1.1) Eosinophils # (Auto) 0.1 x10^3/uL (0.0-0.7) Basophils # (Auto) 0.0 x10^3/uL (0.0-0.2) Sodium Level 139 mmol/L (136-145) Potassium Level 3.4 mmol/L (3.5-5.1) Chloride Level 101 mmol/L (98-107) Carbon Dioxide Level 28 mmol/L (21-32) Anion Gap 10 (6-14) Blood Urea Nitrogen 29 mg/dL (8-26) Creatinine 2.2 mg/dL (0.7-1.3) Estimated GFR (Cockcroft-Gault) 28.9 Glucose Level 153 mg/dL (70-99) Calcium Level 8.1 mg/dL (8.5-10.1) Magnesium Level 2.1 mg/dL (1.8-2.4) Medications Active Scripts Medications Dose Route/Sig Max Daily Dose Days Date Category Metolazone 2.5 Mg Tablet 2.5 Mg PO SATURDAY -SATURDAY PRN 01/23/17 Reported Entresto 24 mg-26 mg Tablet (Sacubitril/Valsartan) 1 Each Tablet 1 Each PO BID 01/23/17 Reported Aspir 81 (Aspirin) 81 Mg Tablet.dr 81 Mg PO 01/23/17 Reported Mag-Oxide (Magnesium Oxide) 400 Mg Tablet 1 Tab PO BID 01/23/17 Reported NITROGLYCERIN SubLingual (Nitroglycerin) 0.4 Mg Tab.subl 0.4 Mg SL PRN Q5MIN PRN 01/23/17 Reported Metoprolol Succinate ( Xl ) (Metoprolol Succinate) 25 Mg Tab.er.24h 50 Mg PO DAILY 01/23/17 Reported Eliquis (Apixaban) 5 Mg Tablet 5 Mg PO BID 01/23/17 Reported Amiodarone Hcl 200 Mg Tablet 200 Mg PO TID 04/24/16 Rx Savaysa (Edoxaban Tosylate) 60 Mg Tablet 60 Mg PO QHS 04/21/16 Reported [place]-3 Fish Oil 1,000 Mg Sfgl ([place]-3/Dha/Epa/Fish Oil) 1,000 Mg Capsule 1,000 Mg PO DAILY 10/31/15 Reported Metformin Hcl 850 Mg Tablet 850 Mg PO BIDWMEALS 10/31/15 Reported Plavix (Clopidogrel Bisulfate) 75 Mg Tablet 75 Mg PO DAILY 10/31/15 Reported Crestor (Rosuvastatin Calcium) 20 Mg Tablet 20 Mg PO HS 05/29/14 Reported Losartan Potassium 25 Mg Tablet 50 Mg PO DAILY 05/29/14 Reported Furosemide 40 Mg Tablet 40 Mg PO DAILY 05/29/14 Reported Potassium Chloride 20 Meq Tab.er.prt 20 Meq PO DAILY 05/29/14 Reported Impression . 1. Acute hypoxic respiratory failure secondary to acute on chronic systolic heart failure and moderate-sized right pleural effusion. 2. 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 3. No significant history of tobacco use. 4. Acute on chronic renal failure. Suspect secondary to poor cardiac pump function. 5. ?Pneumonia Plan . 1. awaiting thoracentesis on Saturday. holding Eliquis and Plavix 2. Follow Cardiology recommendations. 3. Follow renal recommendations. dialysis 4. He probably has acute bronchitis as well and I will continue empiric antibiotics. 5. Would rec. DNR 6. will repeat cxr in BABATUNDE Rivas MD Jan 26, 2017 11:21
[2017-01-26] MEDS ORDERED: POTASSIUM CHLORIDE 20 MEQ TABLET.ER. PO ONE (12:00)
[2017-01-26] MEDS: FUROSEMIDE 40 MG TABLET. PO SCH (12:22)
--- NOTE | 2017-01-26 13:45 | PDOC ---
Provider Note Provider Note No significant shortness of breath. Lungs show decreased breath sounds on the right side. No wheezing or rales. Oedema of the legs is improved. Thoracentesis is planned for 01/28. Continue dobutamine until 01/29. Upgade to Bi-V pacemaker on 01/29. MELINDA FORTUNE MD Jan 26, 2017 13:45
[2017-01-26] MEDS ORDERED: IV NORMAL SALINE 1000ML BAG 1,000 ML IV PRN ×2 (15:42)
[2017-01-26] MEDS ORDERED: 0.9 % SODIUM CHLORIDE 10 ML DISP.SYRIN. IV PRN ×2 (15:45)
[2017-01-26] MEDS ORDERED: diphenhydrAMINE 50 MG/ML VIAL IV PRN (15:45)
[2017-01-26] MEDS ORDERED: ALBUMIN HUMAN 25% 200 ML IV PRN (15:45)
[2017-01-26] MEDS ORDERED: ACETAMINOPHEN 500 MG TABLET PO PRN (15:45)
[2017-01-26] MEDS ORDERED: DIALYSIS PATIENT. MC PRN ×2 (15:45)
[2017-01-26] MEDS: ATORVASTATIN CALCIUM 40 MG TABLET. PO SCH (21:21)
[2017-01-26] MEDS: MONTELUKAST SODIUM 10 MG TABLET. PO SCH (21:21)
[2017-01-27] VITALS (10 sets, daily range): BP systolic 109–137; BP diastolic 55–73
[2017-01-27] MEDS: PIPERACILLIN/TAZOBACTAM 2.25 GM in IV NORMAL SALINE 50ML 50 ML IV SCH ×3 (06:08→20:55)
[2017-01-27 06:48] LABS: BASO % 0 % (0-3); EOS % 3 % (0-3); HEMATOCRIT 27.1 % (39.0-53.0); HEMOGLOBIN 8.5 g/dL (13.0-17.5); LYMPH # 0.8 x10^3/uL (1.0-4.8); LYMPH % 12 % (24-48); MEAN CORPUSCULAR HEMOGLOBIN 26 pg (25-35); MEAN CORPUSCULAR HGB CONC 32 g/dL (31-37); MEAN CORPUSCULAR VOLUME 82 fL (79-100); MONO % 7 % (0-9); NEUT % 78 % (31-73); PLATELET COUNT 144 x10^3/uL (140-400); RED BLOOD COUNT 3.31 x10^6/uL (4.30-5.70); RED CELL DISTRIBUTION WIDTH 19.5 % (11.5-14.5); WHITE BLOOD COUNT 6.9 x10^3/uL (4.0-11.0)
[2017-01-27 07:11] LABS: CALCIUM 7.7 mg/dL (8.5-10.1); CREATININE 1.6 mg/dL (0.7-1.3); GFR 41.8; MAGNESIUM 1.8 mg/dL (1.8-2.4); POTASSIUM 3.6 mmol/L (3.5-5.1)
[2017-01-27] MEDS: FUROSEMIDE 40 MG TABLET. PO SCH (08:23)
[2017-01-27] MEDS: OMEGA-3 FATTY ACIDS/FISH OIL 1,000 MG CAPSULE. PO SCH (08:23)
[2017-01-27] MEDS: METOPROLOL SUCC 24HR ER 50 MG TAB.ER.24H. PO SCH (08:23)
[2017-01-27] MEDS: MULTIVITAMIN with MINERAL TABLET. PO SCH (08:23)
[2017-01-27] MEDS: AZITHROMYCIN 250 MG TABLET. PO SCH (08:23)
[2017-01-27] MEDS: LINEZOLID 600 MG TABLET PO SCH ×2 (08:24→20:54)
[2017-01-27] MEDS: INSULIN ASPART 300 UNITS/3 ML INSULN.PEN SQ SCH ×3 (08:32→16:30)
--- NOTE | 2017-01-27 10:57 | PDOC ---
PULMONARY PROGRESS NOTES Subjective less soa Vitals Vital Signs Date Time Temp Pulse Resp B/P (MAP) Pulse Ox O2 Delivery O2 Flow Rate FiO2 01/27/17 08:23 77 122/71 01/27/17 07:30 97.7 20 96 Nasal Cannula 3.0 97.7 General: Alert, No acute distress Lungs: Other (decrease bs Right base) Cardiovascular: S1 Abdomen: Soft Neuro Exam: Alert Extremities: Other (2+edema) Labs Laboratory Tests Test 01/25/17 13:20 01/25/17 16:32 01/26/17 06:30 01/26/17 07:37 Glucose (Fingerstick) 116 mg/dL (70-99) 227 mg/dL (70-99) 164 mg/dL (70-99) White Blood Count 7.2 x10^3/uL (4.0-11.0) Red Blood Count 3.31 x10^6/uL (4.30-5.70) Hemoglobin 8.5 g/dL (13.0-17.5) Hematocrit 26.9 % (39.0-53.0) Mean Corpuscular Volume 81 fL (79-100) Mean Corpuscular Hemoglobin 26 pg (25-35) Mean Corpuscular Hemoglobin Concent 31 g/dL (31-37) Red Cell Distribution Width 19.8 % (11.5-14.5) Platelet Count 152 x10^3/uL (140-400) Neutrophils (%) (Auto) 81 % (31-73) Lymphocytes (%) (Auto) 9 % (24-48) Monocytes (%) (Auto) 8 % (0-9) Eosinophils (%) (Auto) 2 % (0-3) Basophils (%) (Auto) 0 % (0-3) Neutrophils # (Auto) 5.8 x10^3uL (1.8-7.7) Lymphocytes # (Auto) 0.7 x10^3/uL (1.0-4.8) Monocytes # (Auto) 0.6 x10^3/uL (0.0-1.1) Eosinophils # (Auto) 0.1 x10^3/uL (0.0-0.7) Basophils # (Auto) 0.0 x10^3/uL (0.0-0.2) Sodium Level 139 mmol/L (136-145) Potassium Level 3.4 mmol/L (3.5-5.1) Chloride Level 101 mmol/L (98-107) Carbon Dioxide Level 28 mmol/L (21-32) Anion Gap 10 (6-14) Blood Urea Nitrogen 29 mg/dL (8-26) Creatinine 2.2 mg/dL (0.7-1.3) Estimated GFR (Cockcroft-Gault) 28.9 Glucose Level 153 mg/dL (70-99) Calcium Level 8.1 mg/dL (8.5-10.1) Magnesium Level 2.1 mg/dL (1.8-2.4) Test 01/26/17 11:34 01/26/17 18:44 01/26/17 21:15 01/27/17 06:30 Glucose (Fingerstick) 180 mg/dL (70-99) 163 mg/dL (70-99) 217 mg/dL (70-99) White Blood Count 6.9 x10^3/uL (4.0-11.0) Red Blood Count 3.31 x10^6/uL (4.30-5.70) Hemoglobin 8.5 g/dL (13.0-17.5) Hematocrit 27.1 % (39.0-53.0) Mean Corpuscular Volume 82 fL (79-100) Mean Corpuscular Hemoglobin 26 pg (25-35) Mean Corpuscular Hemoglobin Concent 32 g/dL (31-37) Red Cell Distribution Width 19.5 % (11.5-14.5) Platelet Count 144 x10^3/uL (140-400) Neutrophils (%) (Auto) 78 % (31-73) Lymphocytes (%) (Auto) 12 % (24-48) Monocytes (%) (Auto) 7 % (0-9) Eosinophils (%) (Auto) 3 % (0-3) Basophils (%) (Auto) 0 % (0-3) Neutrophils # (Auto) 5.4 x10^3uL (1.8-7.7) Lymphocytes # (Auto) 0.8 x10^3/uL (1.0-4.8) Monocytes # (Auto) 0.5 x10^3/uL (0.0-1.1) Eosinophils # (Auto) 0.2 x10^3/uL (0.0-0.7) Basophils # (Auto) 0.0 x10^3/uL (0.0-0.2) Sodium Level 140 mmol/L (136-145) Potassium Level 3.6 mmol/L (3.5-5.1) Chloride Level 103 mmol/L (98-107) Carbon Dioxide Level 31 mmol/L (21-32) Anion Gap 6 (6-14) Blood Urea Nitrogen 16 mg/dL (8-26) Creatinine 1.6 mg/dL (0.7-1.3) Estimated GFR (Cockcroft-Gault) 41.8 Glucose Level 177 mg/dL (70-99) Calcium Level 7.7 mg/dL (8.5-10.1) Magnesium Level 1.8 mg/dL (1.8-2.4) Test 01/27/17 07:38 Glucose (Fingerstick) 167 mg/dL (70-99) Laboratory Tests Test 01/26/17 11:34 01/26/17 18:44 01/26/17 21:15 01/27/17 06:30 Glucose (Fingerstick) 180 mg/dL (70-99) 163 mg/dL (70-99) 217 mg/dL (70-99) White Blood Count 6.9 x10^3/uL (4.0-11.0) Red Blood Count 3.31 x10^6/uL (4.30-5.70) Hemoglobin 8.5 g/dL (13.0-17.5) Hematocrit 27.1 % (39.0-53.0) Mean Corpuscular Volume 82 fL (79-100) Mean Corpuscular Hemoglobin 26 pg (25-35) Mean Corpuscular Hemoglobin Concent 32 g/dL (31-37) Red Cell Distribution Width 19.5 % (11.5-14.5) Platelet Count 144 x10^3/uL (140-400) Neutrophils (%) (Auto) 78 % (31-73) Lymphocytes (%) (Auto) 12 % (24-48) Monocytes (%) (Auto) 7 % (0-9) Eosinophils (%) (Auto) 3 % (0-3) Basophils (%) (Auto) 0 % (0-3) Neutrophils # (Auto) 5.4 x10^3uL (1.8-7.7) Lymphocytes # (Auto) 0.8 x10^3/uL (1.0-4.8) Monocytes # (Auto) 0.5 x10^3/uL (0.0-1.1) Eosinophils # (Auto) 0.2 x10^3/uL (0.0-0.7) Basophils # (Auto) 0.0 x10^3/uL (0.0-0.2) Sodium Level 140 mmol/L (136-145) Potassium Level 3.6 mmol/L (3.5-5.1) Chloride Level 103 mmol/L (98-107) Carbon Dioxide Level 31 mmol/L (21-32) Anion Gap 6 (6-14) Blood Urea Nitrogen 16 mg/dL (8-26) Creatinine 1.6 mg/dL (0.7-1.3) Estimated GFR (Cockcroft-Gault) 41.8 Glucose Level 177 mg/dL (70-99) Calcium Level 7.7 mg/dL (8.5-10.1) Magnesium Level 1.8 mg/dL (1.8-2.4) Test 01/27/17 07:38 Glucose (Fingerstick) 167 mg/dL (70-99) Medications Active Scripts Medications Dose Route/Sig Max Daily Dose Days Date Category Metolazone 2.5 Mg Tablet 2.5 Mg PO SATURDAY -SATURDAY PRN 01/23/17 Reported Entresto 24 mg-26 mg Tablet (Sacubitril/Valsartan) 1 Each Tablet 1 Each PO BID 01/23/17 Reported Aspir 81 (Aspirin) 81 Mg Tablet.dr 81 Mg PO 01/23/17 Reported Mag-Oxide (Magnesium Oxide) 400 Mg Tablet 1 Tab PO BID 01/23/17 Reported NITROGLYCERIN SubLingual (Nitroglycerin) 0.4 Mg Tab.subl 0.4 Mg SL PRN Q5MIN PRN 01/23/17 Reported Metoprolol Succinate ( Xl ) (Metoprolol Succinate) 25 Mg Tab.er.24h 50 Mg PO DAILY 01/23/17 Reported Eliquis (Apixaban) 5 Mg Tablet 5 Mg PO BID 01/23/17 Reported Amiodarone Hcl 200 Mg Tablet 200 Mg PO TID 04/24/16 Rx Savaysa (Edoxaban Tosylate) 60 Mg Tablet 60 Mg PO QHS 04/21/16 Reported [place]-3 Fish Oil 1,000 Mg Sfgl ([place]-3/Dha/Epa/Fish Oil) 1,000 Mg Capsule 1,000 Mg PO DAILY 10/31/15 Reported Metformin Hcl 850 Mg Tablet 850 Mg PO BIDWMEALS 10/31/15 Reported Plavix (Clopidogrel Bisulfate) 75 Mg Tablet 75 Mg PO DAILY 10/31/15 Reported Crestor (Rosuvastatin Calcium) 20 Mg Tablet 20 Mg PO HS 05/29/14 Reported Losartan Potassium 25 Mg Tablet 50 Mg PO DAILY 05/29/14 Reported Furosemide 40 Mg Tablet 40 Mg PO DAILY 05/29/14 Reported Potassium Chloride 20 Meq Tab.er.prt 20 Meq PO DAILY 05/29/14 Reported Impression . 1. Acute hypoxic respiratory failure secondary to acute on chronic systolic heart failure and moderate-sized right pleural effusion. 2. 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 3. No significant history of tobacco use. 4. Acute on chronic renal failure. Suspect secondary to poor cardiac pump function. 5. ?Pneumonia Plan . 1. awaiting thoracentesis on Saturday. holding Eliquis and Plavix 2. Follow Cardiology recommendations. 3. Follow renal recommendations. dialysis 4. He probably has acute bronchitis as well and I will continue empiric antibiotics. 5. Would rec. DNR 6. repeat cxr 01/27 WITH SOME IMPROVEMENT IN RIGHT EFFUSION. WILL DO CT CHEST TO BETTER ASSESS EFFUSION BABATUNDE THEODORE MD Jan 27, 2017 10:57
--- NOTE | 2017-01-27 11:37 | PDOC ---
Renal-Progress Notes Subjective Notes Notes FEELS WELL History of Present Illness Hx of present illness NO CHANGE Vitals Vitals Vital Signs Date Time Temp Pulse Resp B/P (MAP) Pulse Ox O2 Delivery O2 Flow Rate FiO2 01/27/17 11:00 97.6 62 22 123/72 (89) 96 Nasal Cannula 3.0 97.6 Weight Weight [ ] I.O. Intake and Output Intake and Output 01/27/17 07:00 Intake Total 1310 ml Output Total 575 ml Balance 735 ml Intake Oral 1060 ml Other 250 ml Output Urine Total 575 ml Labs Labs Laboratory Tests Test 01/26/17 18:44 01/26/17 21:15 01/27/17 06:30 01/27/17 07:38 Glucose (Fingerstick) 163 mg/dL (70-99) 217 mg/dL (70-99) 167 mg/dL (70-99) White Blood Count 6.9 x10^3/uL (4.0-11.0) Red Blood Count 3.31 x10^6/uL (4.30-5.70) Hemoglobin 8.5 g/dL (13.0-17.5) Hematocrit 27.1 % (39.0-53.0) Mean Corpuscular Volume 82 fL (79-100) Mean Corpuscular Hemoglobin 26 pg (25-35) Mean Corpuscular Hemoglobin Concent 32 g/dL (31-37) Red Cell Distribution Width 19.5 % (11.5-14.5) Platelet Count 144 x10^3/uL (140-400) Neutrophils (%) (Auto) 78 % (31-73) Lymphocytes (%) (Auto) 12 % (24-48) Monocytes (%) (Auto) 7 % (0-9) Eosinophils (%) (Auto) 3 % (0-3) Basophils (%) (Auto) 0 % (0-3) Neutrophils # (Auto) 5.4 x10^3uL (1.8-7.7) Lymphocytes # (Auto) 0.8 x10^3/uL (1.0-4.8) Monocytes # (Auto) 0.5 x10^3/uL (0.0-1.1) Eosinophils # (Auto) 0.2 x10^3/uL (0.0-0.7) Basophils # (Auto) 0.0 x10^3/uL (0.0-0.2) Sodium Level 140 mmol/L (136-145) Potassium Level 3.6 mmol/L (3.5-5.1) Chloride Level 103 mmol/L (98-107) Carbon Dioxide Level 31 mmol/L (21-32) Anion Gap 6 (6-14) Blood Urea Nitrogen 16 mg/dL (8-26) Creatinine 1.6 mg/dL (0.7-1.3) Estimated GFR (Cockcroft-Gault) 41.8 Glucose Level 177 mg/dL (70-99) Calcium Level 7.7 mg/dL (8.5-10.1) Magnesium Level 1.8 mg/dL (1.8-2.4) Micro Micro Microbiology 01/23/17 Blood Culture - Preliminary, Resulted NO GROWTH AFTER 3 DAYS 01/24/17 Urine Culture - Final, Complete 01/24/17 Urine Culture Result 1 (CARMEN) - Final, Complete Review of Systems Constitutional: yes: alert, oriented Ears/Nose/Throat: Yes: no symptom reported Eyes: Yes: no symptom reported Pulmonary: Yes dyspnea Cardiovascular: Yes edema Genitourinary: Yes: no symptom reported Musculoskeletal: Yes: muscle stiffness Skin: Yes no symptom reported Hematologic/Lymphatic: Yes: no symptom reported Physical Exam General Appearance: no apparent distress Skin: warm Respiratory: decreased breath sounds Heart: S1S2, no rubs Abdomen: soft, bowel sounds present Extremities: edema Neurology: alert, oriented, follow commands Assessment Assessment IMP CKD STAGE 3 TO 4-BASELINE CR ABOUT 2.0-ADMIT CR ABOUT 4.0 FROM DECREASED RBF WILNER DUE TO DECREASED RBF HYPERKALEMIA-BETTER ANEMIA SEVERE CM WITH EF 10-15% CAD HX AFIB-PPM HX PLAN ON DOBUTAMINE GTT HD TOMORROW CONT ORAL LASIX AT SOME POINT WILL CONSIDER RESUMING ENTRESTO CONT TO HOLD METFORMIN WILL NEED TO SEE IF HE HAS RENAL RECOVERY URINE OUT IS NOT ADEQUATE YET EXPLAINED TO PT THAT [facility] MAY BE NEEDED WILL CONT TO LOOK FOR RENAL RECOVERY JETT SHIELDS MD Jan 27, 2017 11:37
--- NOTE | 2017-01-27 11:55 | PDOC ---
IM PROGRESS NOTES- Subjective Subjective No dyspnea. Objective Objective no distress Vitals Vital Signs Date Time Temp Pulse Resp B/P (MAP) Pulse Ox O2 Delivery O2 Flow Rate FiO2 01/27/17 11:00 97.6 62 22 123/72 (89) 96 Nasal Cannula 3.0 97.6 Input & Output Intake and Output 01/27/17 07:00 Intake Total 1310 ml Output Total 575 ml Balance 735 ml Intake Oral 1060 ml Other 250 ml Output Urine Total 575 ml Physical Exam Physical Exam General appearance - alert, ill; appearing, and in no distress Mental Status - alert, oriented to person, place, and time, affect appropriate to mood Head - normal Nose -active bleeding bilateral nares Chest - clear to auscultation, no wheezes Heart - S1 and S2 normal, irreg Abdomen - soft, nontender, nondistended, BS + Neurological - no acute neurological deficits noted. confusion improving. Musculoskeletal - no muscular tenderness noted Extremities - trace edema Skin - warm and dry Labs Laboratory Tests Test 01/25/17 13:20 01/25/17 16:32 01/26/17 06:30 01/26/17 07:37 Glucose (Fingerstick) 116 mg/dL (70-99) 227 mg/dL (70-99) 164 mg/dL (70-99) White Blood Count 7.2 x10^3/uL (4.0-11.0) Red Blood Count 3.31 x10^6/uL (4.30-5.70) Hemoglobin 8.5 g/dL (13.0-17.5) Hematocrit 26.9 % (39.0-53.0) Mean Corpuscular Volume 81 fL (79-100) Mean Corpuscular Hemoglobin 26 pg (25-35) Mean Corpuscular Hemoglobin Concent 31 g/dL (31-37) Red Cell Distribution Width 19.8 % (11.5-14.5) Platelet Count 152 x10^3/uL (140-400) Neutrophils (%) (Auto) 81 % (31-73) Lymphocytes (%) (Auto) 9 % (24-48) Monocytes (%) (Auto) 8 % (0-9) Eosinophils (%) (Auto) 2 % (0-3) Basophils (%) (Auto) 0 % (0-3) Neutrophils # (Auto) 5.8 x10^3uL (1.8-7.7) Lymphocytes # (Auto) 0.7 x10^3/uL (1.0-4.8) Monocytes # (Auto) 0.6 x10^3/uL (0.0-1.1) Eosinophils # (Auto) 0.1 x10^3/uL (0.0-0.7) Basophils # (Auto) 0.0 x10^3/uL (0.0-0.2) Sodium Level 139 mmol/L (136-145) Potassium Level 3.4 mmol/L (3.5-5.1) Chloride Level 101 mmol/L (98-107) Carbon Dioxide Level 28 mmol/L (21-32) Anion Gap 10 (6-14) Blood Urea Nitrogen 29 mg/dL (8-26) Creatinine 2.2 mg/dL (0.7-1.3) Estimated GFR (Cockcroft-Gault) 28.9 Glucose Level 153 mg/dL (70-99) Calcium Level 8.1 mg/dL (8.5-10.1) Magnesium Level 2.1 mg/dL (1.8-2.4) Test 01/26/17 11:34 01/26/17 18:44 01/26/17 21:15 01/27/17 06:30 Glucose (Fingerstick) 180 mg/dL (70-99) 163 mg/dL (70-99) 217 mg/dL (70-99) White Blood Count 6.9 x10^3/uL (4.0-11.0) Red Blood Count 3.31 x10^6/uL (4.30-5.70) Hemoglobin 8.5 g/dL (13.0-17.5) Hematocrit 27.1 % (39.0-53.0) Mean Corpuscular Volume 82 fL (79-100) Mean Corpuscular Hemoglobin 26 pg (25-35) Mean Corpuscular Hemoglobin Concent 32 g/dL (31-37) Red Cell Distribution Width 19.5 % (11.5-14.5) Platelet Count 144 x10^3/uL (140-400) Neutrophils (%) (Auto) 78 % (31-73) Lymphocytes (%) (Auto) 12 % (24-48) Monocytes (%) (Auto) 7 % (0-9) Eosinophils (%) (Auto) 3 % (0-3) Basophils (%) (Auto) 0 % (0-3) Neutrophils # (Auto) 5.4 x10^3uL (1.8-7.7) Lymphocytes # (Auto) 0.8 x10^3/uL (1.0-4.8) Monocytes # (Auto) 0.5 x10^3/uL (0.0-1.1) Eosinophils # (Auto) 0.2 x10^3/uL (0.0-0.7) Basophils # (Auto) 0.0 x10^3/uL (0.0-0.2) Sodium Level 140 mmol/L (136-145) Potassium Level 3.6 mmol/L (3.5-5.1) Chloride Level 103 mmol/L (98-107) Carbon Dioxide Level 31 mmol/L (21-32) Anion Gap 6 (6-14) Blood Urea Nitrogen 16 mg/dL (8-26) Creatinine 1.6 mg/dL (0.7-1.3) Estimated GFR (Cockcroft-Gault) 41.8 Glucose Level 177 mg/dL (70-99) Calcium Level 7.7 mg/dL (8.5-10.1) Magnesium Level 1.8 mg/dL (1.8-2.4) Test 01/27/17 07:38 01/27/17 11:29 Glucose (Fingerstick) 167 mg/dL (70-99) 172 mg/dL (70-99) Laboratory Tests Test 01/26/17 18:44 01/26/17 21:15 01/27/17 06:30 01/27/17 07:38 Glucose (Fingerstick) 163 mg/dL (70-99) 217 mg/dL (70-99) 167 mg/dL (70-99) White Blood Count 6.9 x10^3/uL (4.0-11.0) Red Blood Count 3.31 x10^6/uL (4.30-5.70) Hemoglobin 8.5 g/dL (13.0-17.5) Hematocrit 27.1 % (39.0-53.0) Mean Corpuscular Volume 82 fL (79-100) Mean Corpuscular Hemoglobin 26 pg (25-35) Mean Corpuscular Hemoglobin Concent 32 g/dL (31-37) Red Cell Distribution Width 19.5 % (11.5-14.5) Platelet Count 144 x10^3/uL (140-400) Neutrophils (%) (Auto) 78 % (31-73) Lymphocytes (%) (Auto) 12 % (24-48) Monocytes (%) (Auto) 7 % (0-9) Eosinophils (%) (Auto) 3 % (0-3) Basophils (%) (Auto) 0 % (0-3) Neutrophils # (Auto) 5.4 x10^3uL (1.8-7.7) Lymphocytes # (Auto) 0.8 x10^3/uL (1.0-4.8) Monocytes # (Auto) 0.5 x10^3/uL (0.0-1.1) Eosinophils # (Auto) 0.2 x10^3/uL (0.0-0.7) Basophils # (Auto) 0.0 x10^3/uL (0.0-0.2) Sodium Level 140 mmol/L (136-145) Potassium Level 3.6 mmol/L (3.5-5.1) Chloride Level 103 mmol/L (98-107) Carbon Dioxide Level 31 mmol/L (21-32) Anion Gap 6 (6-14) Blood Urea Nitrogen 16 mg/dL (8-26) Creatinine 1.6 mg/dL (0.7-1.3) Estimated GFR (Cockcroft-Gault) 41.8 Glucose Level 177 mg/dL (70-99) Calcium Level 7.7 mg/dL (8.5-10.1) Magnesium Level 1.8 mg/dL (1.8-2.4) Test 01/27/17 11:29 Glucose (Fingerstick) 172 mg/dL (70-99) Meds Current Medications Acetaminophen (Tylenol) 500 mg 1X PRN PRN PO MILD PAIN / TEMP; Start 01/26/17 at 15:45; Stop 01/27/17 at 15:44 Albumin Human 200 ml @ 200 mls/hr 1X PRN PRN IV Hypotension; Start 01/26/17 at 15:45; Stop 01/26/17 at 21:44; Status DC Diphenhydramine HCl (Benadryl) 25 mg 1X PRN PRN IV ITCHING; Start 01/26/17 at 15:45; Stop 01/27/17 at 15:44 Info (PHARMACY MONITORING -- do not chart) 1 each PRN DAILY PRN MC SEE COMMENTS ; Start 01/26/17 at 15:45 Info (PHARMACY MONITORING -- do not chart) 1 each PRN DAILY PRN MC SEE COMMENTS ; Start 01/26/17 at 15:45; Status Cancel Potassium Chloride (Klor-Con) 20 meq 1X ONCE PO Last administered on t 12:22; Start 01/26/17 at 12:00; Stop 01/26/17 at 12:01; Status DC Sodium Chloride 1,000 ml @ 400 mls/hr Q2H30M PRN IV PATENCY; Start 01/26/17 at 15:42; Stop 01/27/17 at 03:41; Status DC Sodium Chloride 1,000 ml @ 1,000 mls/hr Q1H PRN IV hypotension; Start 01/26/17 at 15:42; Stop 01/26/17 at 21:41; Status DC Sodium Chloride (Normal Saline Flush) 10 ml 1X PRN PRN IV AP catheter pack; Start 01/26/17 at 15:45; Stop 01/27/17 at 15:44 Sodium Chloride (Normal Saline Flush) 10 ml 1X PRN PRN IV AQUA [employer] 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 catheter pack; Start 01/26/17 at 15:45; Stop 01/27/17 at 15:44 Assessment Assessment a/c CHF Lasix 40mg IV x1 cardiology consult daily wt IO admit wt not obtained 01/24 154.4# 01/25 149.13 01/26 147.31 BNP 84235 edema LE-venous doppler report negative ECHO 01/24 EF 10-15%, grade IV diastolic, mod MR TR mild AR Pulmonic regurg, severe pulmonary HTN, CO 20-30% Dobutamine 5mcg 01/24 [facility] nephrology consult renal US negative Admit Na 137 01/26 139 K 4.6 3.4 BUN 79 29 Cr 4.4 29 Mg 3.2 2.2 Procalcitonin 0.2 TCD placed 01/24 with 1st HD completed 01/25 KCL and Mg replacements stopped 01/24 Dyspnea multifactorial pulmonary consult Acute bronchitis pleural effusion-thoracentesis planned -eliquis needs held for 48h prior to procedure planned for Saturday WBC 15.5 01/26 7.2 ID consult empiric antibiotics: zithromax IV x1, zosyn IV , Zyvox po 01/24 nebulizer treatments 01/25 ID continue zyvox, zosyn, and zithromax po abnormal TSH acute illness-re eval OP in 2-3 months AF Eliquis stopped prior to thoracentesis-resume post procedure Thoracentesis not due until Saturday CAD ASA and Plavix discontinued-resume post procedure metabolic encephalopathy monitor DVT/GI prophylaxis SCD/ELEUTERIO PPI HTN SBP 130-140s on dobutamine infusion epitaxsis ENT consult off anticoag Plavix and ASA since admission 2L with NC in mouth 93% d/w Dr. Ortiz in ED, she cannot treat at this time Instructed to blow nose, 2-3 sprays afrin, clamp nose for 15min and release. Plan Plan For more details regarding further plans, please refer to the orders. TOM FOSTER MD Jan 27, 2017 11:55
--- NOTE | 2017-01-27 13:01 | RAD ---
AP portable chest radiograph 01/27/2017 Clinical History: Pleural effusion. An AP portable erect digital radiograph of the chest was obtained. Comparison study is dated 01/23/2017. A pacemaker/defibrillator is unchanged position. The patient is status post CABG procedure. A right internal jugular central venous catheter has been placed. The tip of this catheter extends to overlie the right atrium of the heart. The cardiac silhouette is mild to moderately enlarged. The thoracic aorta is mildly tortuous. There is is dypct-lw-yntyzhbu sized right pleural effusion. Increasing congestive changes are seen involving both lungs. No pneumothorax is seen. The osseous structures are unchanged. Impression: Increasing CHF.
--- NOTE | 2017-01-27 13:19 | RAD ---
CT scan of the chest without contrast 01/27/2017 Clinical history: History of pleural effusion. Technique: Unenhanced, contiguous, 5 mm axial sections were obtained through the chest and upper abdomen. One or more of the following individualized dose reduction techniques were utilized for this study: 1. Automated exposure control. 2. Adjustment of the mA and/or kV according to patient size. 3. Use of iterative reconstruction technique. Findings: Comparison is made to the patient's chest radiograph performed earlier today. Surgical changes are seen within the CABG procedure. A pacemaker/defibrillator is unchanged in position as is the large bore right internal jugular central venous catheter. Atherosclerotic calcification of the thoracic aorta and its branches is noted. Extensive coronary artery calcifications are seen. The thoracic aorta is tortuous but tapers normally. Mild to moderate cardiomegaly is noted. Calcified right hilar and mediastinal lymph nodes are seen. There is a moderate to large sized right pleural effusion. Areas of atelectasis are seen involving the right upper lobe, right middle lobe and right lower lobe. Dependent subsegmental atelectasis is seen involving the left lung. No pneumothorax is seen. There is a minimal left pleural effusion. Images through the upper abdomen demonstrate moderate atherosclerotic calcification of the abdominal aorta. Degenerative changes are seen involving the thoracic spine. Impression: Moderate to large sized right pleural effusion with areas of atelectasis involving the right lung as outlined above.
--- NOTE | 2017-01-27 15:57 | PDOC ---
Provider Note Provider Note He feels better not confused anymore. Lungs are clear on the left. Decreased breath sounds over the right lung. Edema of the legs is much improved. CT scan continues to show a moderately large pleural effusion. Thoracentesis scheduled for tomorrow and bi-V pacemaker day after. Discussed at length with the daughter and the rest of the family and they agree. MELINDA FORTUNE MD Jan 27, 2017 15:57
[2017-01-27] MEDS: ATORVASTATIN CALCIUM 40 MG TABLET. PO SCH (20:54)
[2017-01-27] MEDS: MONTELUKAST SODIUM 10 MG TABLET. PO SCH (20:54)
[2017-01-28] VITALS (23 sets, daily range): BP systolic 100–134; BP diastolic 52–82
[2017-01-28] MEDS: PIPERACILLIN/TAZOBACTAM 2.25 GM in IV NORMAL SALINE 50ML 50 ML IV SCH ×3 (05:31→22:38)
[2017-01-28 06:18] LABS: CREATININE 1.9 mg/dL (0.7-1.3); GFR 34.3; MAGNESIUM 1.8 mg/dL (1.8-2.4); POTASSIUM 3.2 mmol/L (3.5-5.1)
[2017-01-28 06:20] LABS: BASO % 0 % (0-3); EOS % 2 % (0-3); HEMATOCRIT 27.3 % (39.0-53.0); HEMOGLOBIN 8.6 g/dL (13.0-17.5); LYMPH % 13 % (24-48); MEAN CORPUSCULAR HEMOGLOBIN 26 pg (25-35); MEAN CORPUSCULAR HGB CONC 31 g/dL (31-37); MEAN CORPUSCULAR VOLUME 81 fL (79-100); MONO % 5 % (0-9); NEUT % 79 % (31-73); PLATELET COUNT 156 x10^3/uL (140-400); RED BLOOD COUNT 3.36 x10^6/uL (4.30-5.70); RED CELL DISTRIBUTION WIDTH 19.4 % (11.5-14.5); WHITE BLOOD COUNT 7.3 x10^3/uL (4.0-11.0)
--- NOTE | 2017-01-28 08:30 | PDOC ---
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 Objective Objective no distress Vitals Vital Signs Date Time Temp Pulse Resp B/P (MAP) Pulse Ox O2 Delivery O2 Flow Rate FiO2 01/28/17 07:00 97.8 63 20 117/61 (79) 91 Nasal Cannula 97.8 01/28/17 03:19 2.0 Input & Output Intake and Output 01/28/17 07:00 Intake Total 1810 ml Output Total 875 ml Balance 935 ml Intake Oral 1250 ml IV Total 560 ml Output Urine Total 875 ml Physical Exam Physical Exam General appearance - alert, ill; appearing, and in no distress Mental Status - alert, oriented to person, place, and time, affect appropriate to mood Head - normal Nose -active bleeding bilateral nares Chest - clear to auscultation, no wheezes, decreased RLL Heart - S1 and S2 normal, irreg Abdomen - soft, nontender, nondistended, BS + Neurological - no acute neurological deficits noted. confusion improving. Musculoskeletal - no muscular tenderness noted Extremities - trace edema Skin - warm and dry Labs Laboratory Tests Test 01/26/17 11:34 01/26/17 18:44 01/26/17 21:15 01/27/17 06:30 Glucose (Fingerstick) 180 mg/dL (70-99) 163 mg/dL (70-99) 217 mg/dL (70-99) White Blood Count 6.9 x10^3/uL (4.0-11.0) Red Blood Count 3.31 x10^6/uL (4.30-5.70) Hemoglobin 8.5 g/dL (13.0-17.5) Hematocrit 27.1 % (39.0-53.0) Mean Corpuscular Volume 82 fL (79-100) Mean Corpuscular Hemoglobin 26 pg (25-35) Mean Corpuscular Hemoglobin Concent 32 g/dL (31-37) Red Cell Distribution Width 19.5 % (11.5-14.5) Platelet Count 144 x10^3/uL (140-400) Neutrophils (%) (Auto) 78 % (31-73) Lymphocytes (%) (Auto) 12 % (24-48) Monocytes (%) (Auto) 7 % (0-9) Eosinophils (%) (Auto) 3 % (0-3) Basophils (%) (Auto) 0 % (0-3) Neutrophils # (Auto) 5.4 x10^3uL (1.8-7.7) Lymphocytes # (Auto) 0.8 x10^3/uL (1.0-4.8) Monocytes # (Auto) 0.5 x10^3/uL (0.0-1.1) Eosinophils # (Auto) 0.2 x10^3/uL (0.0-0.7) Basophils # (Auto) 0.0 x10^3/uL (0.0-0.2) Sodium Level 140 mmol/L (136-145) Potassium Level 3.6 mmol/L (3.5-5.1) Chloride Level 103 mmol/L (98-107) Carbon Dioxide Level 31 mmol/L (21-32) Anion Gap 6 (6-14) Blood Urea Nitrogen 16 mg/dL (8-26) Creatinine 1.6 mg/dL (0.7-1.3) Estimated GFR (Cockcroft-Gault) 41.8 Glucose Level 177 mg/dL (70-99) Calcium Level 7.7 mg/dL (8.5-10.1) Magnesium Level 1.8 mg/dL (1.8-2.4) Test 01/27/17 07:38 01/27/17 11:29 01/27/17 16:46 01/27/17 20:32 Glucose (Fingerstick) 167 mg/dL (70-99) 172 mg/dL (70-99) 139 mg/dL (70-99) 197 mg/dL (70-99) Test 01/28/17 05:45 White Blood Count 7.3 x10^3/uL (4.0-11.0) Red Blood Count 3.36 x10^6/uL (4.30-5.70) Hemoglobin 8.6 g/dL (13.0-17.5) Hematocrit 27.3 % (39.0-53.0) Mean Corpuscular Volume 81 fL (79-100) Mean Corpuscular Hemoglobin 26 pg (25-35) Mean Corpuscular Hemoglobin Concent 31 g/dL (31-37) Red Cell Distribution Width 19.4 % (11.5-14.5) Platelet Count 156 x10^3/uL (140-400) Neutrophils (%) (Auto) 79 % (31-73) Lymphocytes (%) (Auto) 13 % (24-48) Monocytes (%) (Auto) 5 % (0-9) Eosinophils (%) (Auto) 2 % (0-3) Basophils (%) (Auto) 0 % (0-3) Neutrophils # (Auto) 5.8 x10^3uL (1.8-7.7) Lymphocytes # (Auto) 1.0 x10^3/uL (1.0-4.8) Monocytes # (Auto) 0.4 x10^3/uL (0.0-1.1) Eosinophils # (Auto) 0.2 x10^3/uL (0.0-0.7) Basophils # (Auto) 0.0 x10^3/uL (0.0-0.2) Sodium Level 139 mmol/L (136-145) Potassium Level 3.2 mmol/L (3.5-5.1) Chloride Level 101 mmol/L (98-107) Carbon Dioxide Level 31 mmol/L (21-32) Anion Gap 7 (6-14) Blood Urea Nitrogen 20 mg/dL (8-26) Creatinine 1.9 mg/dL (0.7-1.3) Estimated GFR (Cockcroft-Gault) 34.3 Glucose Level 114 mg/dL (70-99) Calcium Level 8.0 mg/dL (8.5-10.1) Magnesium Level 1.8 mg/dL (1.8-2.4) Laboratory Tests Test 01/27/17 11:29 01/27/17 16:46 01/27/17 20:32 01/28/17 05:45 Glucose (Fingerstick) 172 mg/dL (70-99) 139 mg/dL (70-99) 197 mg/dL (70-99) White Blood Count 7.3 x10^3/uL (4.0-11.0) Red Blood Count 3.36 x10^6/uL (4.30-5.70) Hemoglobin 8.6 g/dL (13.0-17.5) Hematocrit 27.3 % (39.0-53.0) Mean Corpuscular Volume 81 fL (79-100) Mean Corpuscular Hemoglobin 26 pg (25-35) Mean Corpuscular Hemoglobin Concent 31 g/dL (31-37) Red Cell Distribution Width 19.4 % (11.5-14.5) Platelet Count 156 x10^3/uL (140-400) Neutrophils (%) (Auto) 79 % (31-73) Lymphocytes (%) (Auto) 13 % (24-48) Monocytes (%) (Auto) 5 % (0-9) Eosinophils (%) (Auto) 2 % (0-3) Basophils (%) (Auto) 0 % (0-3) Neutrophils # (Auto) 5.8 x10^3uL (1.8-7.7) Lymphocytes # (Auto) 1.0 x10^3/uL (1.0-4.8) Monocytes # (Auto) 0.4 x10^3/uL (0.0-1.1) Eosinophils # (Auto) 0.2 x10^3/uL (0.0-0.7) Basophils # (Auto) 0.0 x10^3/uL (0.0-0.2) Sodium Level 139 mmol/L (136-145) Potassium Level 3.2 mmol/L (3.5-5.1) Chloride Level 101 mmol/L (98-107) Carbon Dioxide Level 31 mmol/L (21-32) Anion Gap 7 (6-14) Blood Urea Nitrogen 20 mg/dL (8-26) Creatinine 1.9 mg/dL (0.7-1.3) Estimated GFR (Cockcroft-Gault) 34.3 Glucose Level 114 mg/dL (70-99) Calcium Level 8.0 mg/dL (8.5-10.1) Magnesium Level 1.8 mg/dL (1.8-2.4) Assessment Assessment Assessment a/c CHF Lasix 40mg IV x1 cardiology consult daily wt IO admit wt not obtained 01/24 154.4# 01/25 149.13 01/26 147.31 01/28 149.06 BNP 67854 edema LE-venous doppler report negative ECHO 01/24 EF 10-15%, grade IV diastolic, mod MR TR mild AR Pulmonic regurg, severe pulmonary HTN, CO 20-30% Dobutamine 5mcg 01/24 Renal: renew enestro planned in future Lasix 40mg po 01/26 Bi vent PPM planned 01/29 [facility] nephrology consult renal US negative Admit Na 137 01/28 139 K 4.6 3.2 BUN 79 20 Cr 4.4 1.9 Mg 3.2 1.8 Procalcitonin 0.2 TCD placed 01/24 with 1st HD completed 01/25 KCL and Mg replacements stopped 01/24 Dyspnea multifactorial pulmonary consult Acute bronchitis pleural effusion-thoracentesis planned -eliquis needs held for 48h prior to procedure planned for Saturday WBC 15.5 01/26 7.2 ID consult empiric antibiotics: zithromax IV x1, zosyn IV , Zyvox po 01/24 nebulizer treatments 01/25 ID continue zyvox, zosyn, and zithromax po 01/28 thoracentesis planned O2 2L 90-93% 01/28 abnormal TSH acute illness-re eval OP in 2-3 months AF Eliquis stopped prior to thoracentesis-resume post procedure Thoracentesis not due until Saturday CAD ASA and Plavix discontinued-resume post procedure metabolic encephalopathy monitor resolved DVT/GI prophylaxis SCD/ELEUTERIO PPI HTN SBP 130-140s on dobutamine infusion epitaxsis ENT consult off anticoag Plavix and ASA since admission 2L with NC in mouth 93% d/w Dr. Ortiz in ED, she cannot treat at this time Instructed to blow nose, 2-3 sprays afrin, clamp nose for 15min and release. resolved DM II FSBS/SSI Metformin held prior to admission BS [id number] For further plan of care, please refer to the orders. Select Screen. COPD: Obstr Chronic Bronchitis Plan Plan For more details regarding further plans, please refer to the orders. TOM FOSTER MD 01/28/17 0935: IM PROGRESS NOTES- Assessment Assessment The patient was seen and examined by me. Chart reviewed and plan of care formulated. Discussed with, reviewed and agree with TWITCHELL OPERATOR's notes, plan of care and orders with modifications as necessary. Select Screen.D/w patient. For more details regarding further plans, please refer to the orders. NEVA LOONEY APRN Jan 28, 2017 08:30 TOM FOSTER MD Jan 28, 2017 09:35
[2017-01-28] MEDS: INSULIN ASPART 300 UNITS/3 ML INSULN.PEN SQ SCH ×3 (08:32→17:51)
[2017-01-28 09:05] LABS: INR 1.2 (0.8-1.1); PROTHROMBIN TIME PATIENT 14.7 SEC (11.7-14.0)
[2017-01-28] MEDS ORDERED: LIDOCAINE 1% / SOD BICARB 8.4% 20 ML VIAL. IJ ONE ×2 (09:54→10:00)
--- NOTE | 2017-01-28 10:25 | PDOC ---
BRIEF OPERATIVE NOTE Pre-Op Diagnosis right pleural effusion Post-Op Diagnosis same Procedure Performed Us thoracentesis Surgeon Stacy Anesthesia Type: Local Findings 1600 cc of thin gloria fluid Complications No immediate PATRICIA DUNHAM MD Jan 28, 2017 10:25
--- NOTE | 2017-01-28 11:23 | RAD ---
Chest radiograph 01/28/2017 at 1114 hours Indication: Post right-sided thoracentesis. Comparison: Chest radiograph 01/27/2017 Technique: Single portable upright view of the chest is provided. Findings: A right IJ catheter is identified with the distal tip projecting over the right atrium., Similar to the prior examination. Left chest wall cardiac device is identified with leads projecting over the right atrium and right ventricle. Median sternotomy changes are present. A peripheral IV catheter is identified in the right arm with the distal tip in the right axilla. Similar appearance of the cardiomediastinal silhouette. There is improving appearance of a small to moderate right-sided pleural effusion. There is no pneumothorax. There is patchy opacity at the left lung base, similar to the prior examination. Mild pulmonary vascular congestion, unchanged. Impression: 1. Stable support lines and tubes. 2. Slight interval improvement of a small moderate right pleural effusion status post thoracentesis. No pneumothorax.
--- NOTE | 2017-01-28 12:30 | PDOC ---
PULMONARY PROGRESS NOTES Subjective less soa s/p thoracentesis Vitals Vital Signs Date Time Temp Pulse Resp B/P (MAP) Pulse Ox O2 Delivery O2 Flow Rate FiO2 01/28/17 11:51 98.0 67 18 121/61 (81) 97 98.0 01/28/17 10:21 Nasal Cannula 2.0 General: Alert, No acute distress Lungs: Other (decrease bs Right base) Cardiovascular: S1 Abdomen: Soft Neuro Exam: Alert Extremities: Other (2+edema) Labs Laboratory Tests Test 01/26/17 18:44 01/26/17 21:15 01/27/17 06:30 01/27/17 07:38 Glucose (Fingerstick) 163 mg/dL (70-99) 217 mg/dL (70-99) 167 mg/dL (70-99) White Blood Count 6.9 x10^3/uL (4.0-11.0) Red Blood Count 3.31 x10^6/uL (4.30-5.70) Hemoglobin 8.5 g/dL (13.0-17.5) Hematocrit 27.1 % (39.0-53.0) Mean Corpuscular Volume 82 fL (79-100) Mean Corpuscular Hemoglobin 26 pg (25-35) Mean Corpuscular Hemoglobin Concent 32 g/dL (31-37) Red Cell Distribution Width 19.5 % (11.5-14.5) Platelet Count 144 x10^3/uL (140-400) Neutrophils (%) (Auto) 78 % (31-73) Lymphocytes (%) (Auto) 12 % (24-48) Monocytes (%) (Auto) 7 % (0-9) Eosinophils (%) (Auto) 3 % (0-3) Basophils (%) (Auto) 0 % (0-3) Neutrophils # (Auto) 5.4 x10^3uL (1.8-7.7) Lymphocytes # (Auto) 0.8 x10^3/uL (1.0-4.8) Monocytes # (Auto) 0.5 x10^3/uL (0.0-1.1) Eosinophils # (Auto) 0.2 x10^3/uL (0.0-0.7) Basophils # (Auto) 0.0 x10^3/uL (0.0-0.2) Sodium Level 140 mmol/L (136-145) Potassium Level 3.6 mmol/L (3.5-5.1) Chloride Level 103 mmol/L (98-107) Carbon Dioxide Level 31 mmol/L (21-32) Anion Gap 6 (6-14) Blood Urea Nitrogen 16 mg/dL (8-26) Creatinine 1.6 mg/dL (0.7-1.3) Estimated GFR (Cockcroft-Gault) 41.8 Glucose Level 177 mg/dL (70-99) Calcium Level 7.7 mg/dL (8.5-10.1) Magnesium Level 1.8 mg/dL (1.8-2.4) Test 01/27/17 11:29 01/27/17 16:46 01/27/17 20:32 01/28/17 05:45 Glucose (Fingerstick) 172 mg/dL (70-99) 139 mg/dL (70-99) 197 mg/dL (70-99) White Blood Count 7.3 x10^3/uL (4.0-11.0) Red Blood Count 3.36 x10^6/uL (4.30-5.70) Hemoglobin 8.6 g/dL (13.0-17.5) Hematocrit 27.3 % (39.0-53.0) Mean Corpuscular Volume 81 fL (79-100) Mean Corpuscular Hemoglobin 26 pg (25-35) Mean Corpuscular Hemoglobin Concent 31 g/dL (31-37) Red Cell Distribution Width 19.4 % (11.5-14.5) Platelet Count 156 x10^3/uL (140-400) Neutrophils (%) (Auto) 79 % (31-73) Lymphocytes (%) (Auto) 13 % (24-48) Monocytes (%) (Auto) 5 % (0-9) Eosinophils (%) (Auto) 2 % (0-3) Basophils (%) (Auto) 0 % (0-3) Neutrophils # (Auto) 5.8 x10^3uL (1.8-7.7) Lymphocytes # (Auto) 1.0 x10^3/uL (1.0-4.8) Monocytes # (Auto) 0.4 x10^3/uL (0.0-1.1) Eosinophils # (Auto) 0.2 x10^3/uL (0.0-0.7) Basophils # (Auto) 0.0 x10^3/uL (0.0-0.2) Sodium Level 139 mmol/L (136-145) Potassium Level 3.2 mmol/L (3.5-5.1) Chloride Level 101 mmol/L (98-107) Carbon Dioxide Level 31 mmol/L (21-32) Anion Gap 7 (6-14) Blood Urea Nitrogen 20 mg/dL (8-26) Creatinine 1.9 mg/dL (0.7-1.3) Estimated GFR (Cockcroft-Gault) 34.3 Glucose Level 114 mg/dL (70-99) Calcium Level 8.0 mg/dL (8.5-10.1) Magnesium Level 1.8 mg/dL (1.8-2.4) Test 01/28/17 08:01 01/28/17 08:40 01/28/17 12:10 Glucose (Fingerstick) 108 mg/dL (70-99) 103 mg/dL (70-99) Prothrombin Time 14.7 SEC (11.7-14.0) Prothromb Time International Ratio 1.2 (0.8-1.1) Laboratory Tests Test 01/27/17 16:46 01/27/17 20:32 01/28/17 05:45 01/28/17 08:01 Glucose (Fingerstick) 139 mg/dL (70-99) 197 mg/dL (70-99) 108 mg/dL (70-99) White Blood Count 7.3 x10^3/uL (4.0-11.0) Red Blood Count 3.36 x10^6/uL (4.30-5.70) Hemoglobin 8.6 g/dL (13.0-17.5) Hematocrit 27.3 % (39.0-53.0) Mean Corpuscular Volume 81 fL (79-100) Mean Corpuscular Hemoglobin 26 pg (25-35) Mean Corpuscular Hemoglobin Concent 31 g/dL (31-37) Red Cell Distribution Width 19.4 % (11.5-14.5) Platelet Count 156 x10^3/uL (140-400) Neutrophils (%) (Auto) 79 % (31-73) Lymphocytes (%) (Auto) 13 % (24-48) Monocytes (%) (Auto) 5 % (0-9) Eosinophils (%) (Auto) 2 % (0-3) Basophils (%) (Auto) 0 % (0-3) Neutrophils # (Auto) 5.8 x10^3uL (1.8-7.7) Lymphocytes # (Auto) 1.0 x10^3/uL (1.0-4.8) Monocytes # (Auto) 0.4 x10^3/uL (0.0-1.1) Eosinophils # (Auto) 0.2 x10^3/uL (0.0-0.7) Basophils # (Auto) 0.0 x10^3/uL (0.0-0.2) Sodium Level 139 mmol/L (136-145) Potassium Level 3.2 mmol/L (3.5-5.1) Chloride Level 101 mmol/L (98-107) Carbon Dioxide Level 31 mmol/L (21-32) Anion Gap 7 (6-14) Blood Urea Nitrogen 20 mg/dL (8-26) Creatinine 1.9 mg/dL (0.7-1.3) Estimated GFR (Cockcroft-Gault) 34.3 Glucose Level 114 mg/dL (70-99) Calcium Level 8.0 mg/dL (8.5-10.1) Magnesium Level 1.8 mg/dL (1.8-2.4) Test 01/28/17 08:40 01/28/17 12:10 Prothrombin Time 14.7 SEC (11.7-14.0) Prothromb Time International Ratio 1.2 (0.8-1.1) Glucose (Fingerstick) 103 mg/dL (70-99) Medications Active Scripts Medications Dose Route/Sig Max Daily Dose Days Date Category Metolazone 2.5 Mg Tablet 2.5 Mg PO SATURDAY -SATURDAY PRN 01/23/17 Reported Entresto 24 mg-26 mg Tablet (Sacubitril/Valsartan) 1 Each Tablet 1 Each PO BID 01/23/17 Reported Aspir 81 (Aspirin) 81 Mg Tablet.dr 81 Mg PO 01/23/17 Reported Mag-Oxide (Magnesium Oxide) 400 Mg Tablet 1 Tab PO BID 01/23/17 Reported NITROGLYCERIN SubLingual (Nitroglycerin) 0.4 Mg Tab.subl 0.4 Mg SL PRN Q5MIN PRN 01/23/17 Reported Metoprolol Succinate ( Xl ) (Metoprolol Succinate) 25 Mg Tab.er.24h 50 Mg PO DAILY 01/23/17 Reported Eliquis (Apixaban) 5 Mg Tablet 5 Mg PO BID 01/23/17 Reported Amiodarone Hcl 200 Mg Tablet 200 Mg PO TID 04/24/16 Rx Savaysa (Edoxaban Tosylate) 60 Mg Tablet 60 Mg PO QHS 04/21/16 Reported [place]-3 Fish Oil 1,000 Mg Sfgl ([place]-3/Dha/Epa/Fish Oil) 1,000 Mg Capsule 1,000 Mg PO DAILY 10/31/15 Reported Metformin Hcl 850 Mg Tablet 850 Mg PO BIDWMEALS 10/31/15 Reported Plavix (Clopidogrel Bisulfate) 75 Mg Tablet 75 Mg PO DAILY 10/31/15 Reported Crestor (Rosuvastatin Calcium) 20 Mg Tablet 20 Mg PO HS 05/29/14 Reported Losartan Potassium 25 Mg Tablet 50 Mg PO DAILY 05/29/14 Reported Furosemide 40 Mg Tablet 40 Mg PO DAILY 05/29/14 Reported Potassium Chloride 20 Meq Tab.er.prt 20 Meq PO DAILY 05/29/14 Reported Impression . 1. Acute hypoxic respiratory failure secondary to acute on chronic systolic heart failure and moderate-sized right pleural effusion. 2. 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 3. No significant history of tobacco use. 4. Acute on chronic renal failure. Suspect secondary to poor cardiac pump function. 5. Doubt Pneumonia/ ct chest with large effusion, no consolidation Plan . 1. s/p thoracentesis .can re-start Eliquis and Plavix 2. Follow Cardiology recommendations. 3. Follow renal recommendations. dialysis 4. change to PO antibiotics. 5. Would rec. DNR 6. f/u CXR as needed BABATUNDE THEODORE MD Jan 28, 2017 12:30
--- NOTE | 2017-01-28 14:20 | RAD ---
Ultrasound Guided Thoracentesis, right side Indication: 81-year-old with congestive heart failure and right pleural effusion Sedation: Local anesthesia only Sterility: The procedure was performed in its entirety using appropriate elements of sterile technique. Technique and Findings: Following informed consent, the patient was prepped and draped in the usual sterile fashion. Ultrasound interrogation of the area of interest was performed revealing the presence of a pleural fluid collection. 1% Lidocaine was used to achieve local anesthesia over the area of interest. A small dermatotomy was made and a 5F [id number] catheter was advanced under ultrasound guidance into the pleural space [id number] cc's of thin gloria fluid was removed. The catheter was then removed and hemostasis was achieved with manual compression. Impression: US thoracentesis as described.
--- NOTE | 2017-01-28 15:03 | PDOC ---
SUBJECTIVE ROS WILNER Doign and feeling a little better this am sada after thoracentesis CVS: no Orthopnea, no CP RESP: min SOB, min ADAIR GI: no Nausea, no Vomiting : no Dysuria, no Urgency OBJECTIVE Vital Signs Vital Signs Date Time Temp Pulse Resp B/P (MAP) Pulse Ox O2 Delivery O2 Flow Rate FiO2 01/28/17 11:51 98.0 67 18 121/61 (81) 97 98.0 01/28/17 10:21 Nasal Cannula 2.0 I & 0 Intake and Output 01/28/17 07:00 Intake Total 1810 ml Output Total 875 ml Balance 935 ml Intake Oral 1250 ml IV Total 560 ml Output Urine Total 875 ml PHYSICAL EXAM Physical Exam GEN: Awake, Oriented x 3, In no distress EYES: Vision Unchanged, Conjunctiva Normal EN: No EN Drainage, Mucous Membranes moist NECK: no JVD, min JVP, Supple, no Thyromegaly CVS: S1S2, soft Murmur, No Gallop, No Rub,no Edema RESP: rajendra basal Rales, no Rhonchi,no Acc. Muscle Use GI: BS + ve, NO Bruit, Non Tender, Non Distended : no CVA tenderness, no Suprapubic Tenderness DIAGNOSIS/ASSESSMENT Assessment & Plan ARF: Creat is much better with Ionotropes. Current fluid and E-lyte status does not necessitate emergent need for dialysis. Will re-evaluate for dialysis in the am CKD III/ Iv at baseline. ANEMIA; Aranap as ordered, Transfuse with next HD as needed HTN: Current BP meds as reviewed. See orders for changes. HYPERKALEMIA-BETTER- NOW lowish - Supplement and may need Mag checked and repalced SEVERE CM WITH EF 10-15% with CAD - BiV AICD being considered. If felt that he can do OP Ionotropes with occ IV Lasix - he may be ivon to put off going on Ch OP HD ([facility]) for the next few months. extensively Discussed Plan of Care with daughter at bedside including logistics of OP HD, Problems: COMMENT/RELEVANT DATA Meds Current Medications Medications (Trade) Dose Ordered Sig/Carter Start Time Stop Time Status Last Admin Dose Admin Acetaminophen (Tylenol) 500 mg 1X PRN PRN 01/26/17 15:45 01/27/17 15:44 DC Albumin Human 200 ml @ 200 mls/hr 1X PRN PRN 01/26/17 15:45 01/26/17 21:44 DC Apixaban (Eliquis) 5 mg BID 01/23/17 12:30 01/23/17 20:26 DC Aspirin (Ecotrin) 81 mg DAILYWBKFT 01/23/17 12:30 01/23/17 20:26 DC Atorvastatin Calcium (Lipitor) 40 mg QHS 01/24/17 21:00 01/27/17 20:54 40 MG Azithromycin (Zithromax) 250 mg DAILY 01/24/17 15:45 01/27/17 08:23 250 MG Clopidogrel Bisulfate (Plavix) 75 mg DAILYWBKFT 01/24/17 08:00 UNV Diphenhydramine HCl (Benadryl) 25 mg 1X PRN PRN 01/26/17 15:45 01/27/17 15:44 DC Dobutamine HCl/ Dextrose 250 ml @ 10.5 mls/hr CONT PRN 01/24/17 12:30 01/28/17 11:26 10.5 MLS/HR Fish Oil (Fish Oil) 1,000 mg DAILY 01/23/17 12:30 01/27/17 08:23 1,000 MG Furosemide (Lasix) 40 mg DAILY 01/26/17 11:30 01/27/17 08:23 40 MG Heparin Sodium (Porcine) (Heparin Sodium) 2,600 unit 1X ONCE 01/24/17 13:45 01/24/17 13:46 DC 01/24/17 13:46 2,500 UNIT Heparin Sodium/ Sodium Chloride 1,000 unit 1X ONCE 01/24/17 13:45 01/24/17 13:46 DC Info (Anti-Coagulation Monitoring By Pharmacy) 1 each PRN DAILY PRN 01/23/17 12:00 01/23/17 20:26 DC Info (PHARMACY MONITORING -- do not chart) 1 each PRN DAILY PRN 01/26/17 15:45 Insulin Aspart (NovoLOG) TIDAC 01/23/17 11:30 01/27/17 12:22 2 UNITS Lidocaine/Sodium Bicarbonate (Buffered Lidocaine 1%) 20 ml 1X ONCE 01/28/17 10:00 01/28/17 10:01 DC 01/28/17 10:24 2 ML Linezolid (Zyvox) 600 mg BID 01/23/17 18:30 01/27/17 20:54 600 MG Magnesium Hydroxide (Milk Of Magnesia) 2,400 mg PRN Q12HR PRN 01/23/17 11:30 Magnesium Oxide (Magnesium Oxide) 400 mg BID 01/23/17 21:00 01/24/17 08:19 DC 01/23/17 21:00 400 MG Metoprolol Succinate (Toprol Xl) 50 mg DAILY 01/23/17 12:30 01/27/17 08:23 50 MG Montelukast Sodium (Singulair) 10 mg QHS 01/23/17 21:00 01/27/17 20:54 10 MG Multivitamins (Thera M Plus) 1 tab DAILY 01/23/17 12:30 01/27/17 08:23 1 TAB Nitroglycerin (Nitrostat) 0.4 mg PRN Q5MIN PRN 01/23/17 11:45 Oxymetazoline HCl (Afrin) 3 spray PRN 1X PRN 01/26/17 09:45 Piperacillin Sod/ Tazobactam Sod 2.25 gm/Sodium Chloride 50 ml @ 100 mls/hr Q8HRS 01/23/17 18:00 01/28/17 05:31 100 MLS/HR Potassium Chloride (Klor-Con) 20 meq 1X ONCE 01/26/17 12:00 01/26/17 12:01 DC 01/26/17 12:22 20 MEQ Sacubitril/ Valsartan (Entresto 24 Mg-26 Mg) 1 tab BID 01/23/17 21:00 UNV Sodium Chloride 1,000 ml @ 400 mls/hr Q2H30M PRN 01/26/17 15:42 01/27/17 03:41 DC Sodium Chloride (Normal Saline Flush) 10 ml 1X PRN PRN 01/26/17 15:45 01/27/17 15:44 DC Lab Laboratory Tests Test 01/27/17 16:46 01/27/17 20:32 01/28/17 05:45 01/28/17 08:01 Glucose (Fingerstick) 139 mg/dL (70-99) 197 mg/dL (70-99) 108 mg/dL (70-99) White Blood Count 7.3 x10^3/uL (4.0-11.0) Red Blood Count 3.36 x10^6/uL (4.30-5.70) Hemoglobin 8.6 g/dL (13.0-17.5) Hematocrit 27.3 % (39.0-53.0) Mean Corpuscular Volume 81 fL (79-100) Mean Corpuscular Hemoglobin 26 pg (25-35) Mean Corpuscular Hemoglobin Concent 31 g/dL (31-37) Red Cell Distribution Width 19.4 % (11.5-14.5) Platelet Count 156 x10^3/uL (140-400) Neutrophils (%) (Auto) 79 % (31-73) Lymphocytes (%) (Auto) 13 % (24-48) Monocytes (%) (Auto) 5 % (0-9) Eosinophils (%) (Auto) 2 % (0-3) Basophils (%) (Auto) 0 % (0-3) Neutrophils # (Auto) 5.8 x10^3uL (1.8-7.7) Lymphocytes # (Auto) 1.0 x10^3/uL (1.0-4.8) Monocytes # (Auto) 0.4 x10^3/uL (0.0-1.1) Eosinophils # (Auto) 0.2 x10^3/uL (0.0-0.7) Basophils # (Auto) 0.0 x10^3/uL (0.0-0.2) Sodium Level 139 mmol/L (136-145) Potassium Level 3.2 mmol/L (3.5-5.1) Chloride Level 101 mmol/L (98-107) Carbon Dioxide Level 31 mmol/L (21-32) Anion Gap 7 (6-14) Blood Urea Nitrogen 20 mg/dL (8-26) Creatinine 1.9 mg/dL (0.7-1.3) Estimated GFR (Cockcroft-Gault) 34.3 Glucose Level 114 mg/dL (70-99) Calcium Level 8.0 mg/dL (8.5-10.1) Magnesium Level 1.8 mg/dL (1.8-2.4) Test 01/28/17 08:40 01/28/17 12:10 Prothrombin Time 14.7 SEC (11.7-14.0) Prothromb Time International Ratio 1.2 (0.8-1.1) Glucose (Fingerstick) 103 mg/dL (70-99) TIMOTHY CONROY MD Jan 28, 2017 15:03
--- NOTE | 2017-01-28 15:35 | PDOC ---
Infectious Disease Note Subjective Subjective Comfortable, Tolerated procedure, denies pain, SOA at rest or chest discomfort Mild cough Better since admit ROS ROS GEN: Denies fevers, chills, sweats HEENT: Denies blurred vision, sore throat CV: Denies chest pain RESP: Denies shortness of air, cough GI: Denies n/v/d NEURO: Denies confusion, dizziness MSK: Denies weakness, joint pain/swelling Vital Sign Vital Signs Vital Signs Date Time Temp Pulse Resp B/P (MAP) Pulse Ox O2 Delivery O2 Flow Rate FiO2 01/28/17 11:51 98.0 67 18 121/61 (81) 97 98.0 01/28/17 10:21 Nasal Cannula 2.0 Physical Exam PHYSICAL EXAM GENERAL: Propped up in chair, relaxed appearance HEENT: Oral mucosa pink NECK: Supple. LUNGS: Diminished aeration right lower lung leon. Nonlabored. HEART: Normal S1 and S2. Left-sided AICD. ABDOMEN: Bowel sounds are present, soft, nontender. EXTREMITIES: Bilateral lower extremity edema. No cyanosis. SKIN: Without rash. Warm to touch. NEUROLOGIC: Awake and oriented x 3. No focal deficits appreciated. RUE-PICC. clean RIJ/temp HDC (01/24). clean Labs Lab Laboratory Tests Test 01/27/17 16:46 01/27/17 20:32 01/28/17 05:45 01/28/17 08:01 Glucose (Fingerstick) 139 mg/dL (70-99) 197 mg/dL (70-99) 108 mg/dL (70-99) White Blood Count 7.3 x10^3/uL (4.0-11.0) Red Blood Count 3.36 x10^6/uL (4.30-5.70) Hemoglobin 8.6 g/dL (13.0-17.5) Hematocrit 27.3 % (39.0-53.0) Mean Corpuscular Volume 81 fL (79-100) Mean Corpuscular Hemoglobin 26 pg (25-35) Mean Corpuscular Hemoglobin Concent 31 g/dL (31-37) Red Cell Distribution Width 19.4 % (11.5-14.5) Platelet Count 156 x10^3/uL (140-400) Neutrophils (%) (Auto) 79 % (31-73) Lymphocytes (%) (Auto) 13 % (24-48) Monocytes (%) (Auto) 5 % (0-9) Eosinophils (%) (Auto) 2 % (0-3) Basophils (%) (Auto) 0 % (0-3) Neutrophils # (Auto) 5.8 x10^3uL (1.8-7.7) Lymphocytes # (Auto) 1.0 x10^3/uL (1.0-4.8) Monocytes # (Auto) 0.4 x10^3/uL (0.0-1.1) Eosinophils # (Auto) 0.2 x10^3/uL (0.0-0.7) Basophils # (Auto) 0.0 x10^3/uL (0.0-0.2) Sodium Level 139 mmol/L (136-145) Potassium Level 3.2 mmol/L (3.5-5.1) Chloride Level 101 mmol/L (98-107) Carbon Dioxide Level 31 mmol/L (21-32) Anion Gap 7 (6-14) Blood Urea Nitrogen 20 mg/dL (8-26) Creatinine 1.9 mg/dL (0.7-1.3) Estimated GFR (Cockcroft-Gault) 34.3 Glucose Level 114 mg/dL (70-99) Calcium Level 8.0 mg/dL (8.5-10.1) Magnesium Level 1.8 mg/dL (1.8-2.4) Test 01/28/17 08:40 01/28/17 12:10 Prothrombin Time 14.7 SEC (11.7-14.0) Prothromb Time International Ratio 1.2 (0.8-1.1) Glucose (Fingerstick) 103 mg/dL (70-99) Objective Assessment Leukocytosis - resolved Right pleural effusion s/p thoracentesis today 1400 Acute on chronic CHF WILNER on CKD. Now on HD Severe cardiomyopathy w/EF 10-15% DM II Plan Plan of Care Zyvox, Zosyn D/c Azithromycin Await CT guided thoracentesis results Monitor labs and cultures Supportive care CLINTON ABRAHAM MD Jan 28, 2017 15:35
[2017-01-28] MEDS: FUROSEMIDE 40 MG TABLET. PO SCH (15:49)
[2017-01-28] MEDS: MULTIVITAMIN with MINERAL TABLET. PO SCH (15:49)
[2017-01-28] MEDS: OMEGA-3 FATTY ACIDS/FISH OIL 1,000 MG CAPSULE. PO SCH (15:49)
[2017-01-28] MEDS: METOPROLOL SUCC 24HR ER 50 MG TAB.ER.24H. PO SCH (15:50)
[2017-01-28] MEDS: POTASSIUM CHLORIDE 20 MEQ TABLET.ER. PO SCH (15:53)
[2017-01-28] MEDS: LINEZOLID 600 MG TABLET PO SCH ×2 (15:54→21:13)
[2017-01-28 16:51] LABS: % SAT IRON 14 % (15-34); IRON,SERUM 49 ug/dL (65-175)
[2017-01-28] MEDS ORDERED: INSULIN ASPART 300 UNITS/3 ML INSULN.PEN SQ ONE (18:30)
--- NOTE | 2017-01-28 20:05 | PDOC ---
Provider Note Provider Note He feels much better since the thoracentesis. Air entry better on the right side. He did not undergo dialysis today. He is scheduled to undergo a bi-V pacemaker tomorrow. A small amount of iodine will have to be utilized for it. Will discuss with nephrology regarding timing of dialysis tomorrow. MELINDA FORTUNE MD Jan 28, 2017 20:05
[2017-01-28] MEDS: ATORVASTATIN CALCIUM 40 MG TABLET. PO SCH (21:13)
[2017-01-28] MEDS: MONTELUKAST SODIUM 10 MG TABLET. PO SCH (21:13)
[2017-01-29] VITALS (7 sets, daily range): BP systolic 90–140; BP diastolic 51–73
[2017-01-29] MEDS: PIPERACILLIN/TAZOBACTAM 2.25 GM in IV NORMAL SALINE 50ML 50 ML IV SCH ×3 (05:49→22:00)
[2017-01-29 06:39] LABS: CALCIUM 7.7 mg/dL (8.5-10.1); CREATININE 1.9 mg/dL (0.7-1.3); GFR 34.3; MAGNESIUM 1.7 mg/dL (1.8-2.4); POTASSIUM 3.6 mmol/L (3.5-5.1)
[2017-01-29 06:54] LABS: BASO % 0 % (0-3); EOS % 3 % (0-3); HEMATOCRIT 25.8 % (39.0-53.0); HEMOGLOBIN 8.5 g/dL (13.0-17.5); LYMPH # 0.9 x10^3/uL (1.0-4.8); LYMPH % 11 % (24-48); MEAN CORPUSCULAR HEMOGLOBIN 26 pg (25-35); MEAN CORPUSCULAR HGB CONC 33 g/dL (31-37); MEAN CORPUSCULAR VOLUME 79 fL (79-100); MONO % 4 % (0-9); NEUT % 82 % (31-73); PLATELET COUNT 151 x10^3/uL (140-400); RED BLOOD COUNT 3.26 x10^6/uL (4.30-5.70); RED CELL DISTRIBUTION WIDTH 19.3 % (11.5-14.5)
[2017-01-29] MEDS: INSULIN ASPART 300 UNITS/3 ML INSULN.PEN SQ SCH ×3 (07:30→16:30)
--- NOTE | 2017-01-29 08:11 | PDOC ---
NEVA LOONEY [employer] 01/29/17 0811: IM PROGRESS NOTES- Subjective Subjective No dyspnea. Objective Objective no distress Vitals Vital Signs Date Time Temp Pulse Resp B/P (MAP) Pulse Ox O2 Delivery O2 Flow Rate FiO2 01/29/17 07:00 97.7 84 19 105/62 (76) 97 Nasal Cannula 2.0 97.7 Input & Output Intake and Output 01/29/17 07:00 Intake Total 1030 ml Output Total 2175 ml Balance -1145 ml Intake Oral 980 ml IV Total 50 ml Output Urine Total 575 ml Chest Tube Drainage Total 1600 ml # Voids 6 Physical Exam Physical Exam General appearance - alert, ill; appearing, and in no distress Mental Status - alert, oriented to person, place, and time, affect appropriate to mood Head - normal Nose -active bleeding bilateral nares Chest - clear to auscultation, no wheezes, decreased RLL Heart - S1 and S2 normal, irreg Abdomen - soft, nontender, nondistended, BS + Neurological - no acute neurological deficits noted. confusion improving. Musculoskeletal - no muscular tenderness noted Extremities - trace edema Skin - warm and dry Labs Laboratory Tests Test 01/27/17 11:29 01/27/17 16:46 01/27/17 20:32 01/28/17 05:45 Glucose (Fingerstick) 172 mg/dL (70-99) 139 mg/dL (70-99) 197 mg/dL (70-99) White Blood Count 7.3 x10^3/uL (4.0-11.0) Red Blood Count 3.36 x10^6/uL (4.30-5.70) Hemoglobin 8.6 g/dL (13.0-17.5) Hematocrit 27.3 % (39.0-53.0) Mean Corpuscular Volume 81 fL (79-100) Mean Corpuscular Hemoglobin 26 pg (25-35) Mean Corpuscular Hemoglobin Concent 31 g/dL (31-37) Red Cell Distribution Width 19.4 % (11.5-14.5) Platelet Count 156 x10^3/uL (140-400) Neutrophils (%) (Auto) 79 % (31-73) Lymphocytes (%) (Auto) 13 % (24-48) Monocytes (%) (Auto) 5 % (0-9) Eosinophils (%) (Auto) 2 % (0-3) Basophils (%) (Auto) 0 % (0-3) Neutrophils # (Auto) 5.8 x10^3uL (1.8-7.7) Lymphocytes # (Auto) 1.0 x10^3/uL (1.0-4.8) Monocytes # (Auto) 0.4 x10^3/uL (0.0-1.1) Eosinophils # (Auto) 0.2 x10^3/uL (0.0-0.7) Basophils # (Auto) 0.0 x10^3/uL (0.0-0.2) Reticulocyte Count (auto) 1.4 % (0.5-2.5) Sodium Level 139 mmol/L (136-145) Potassium Level 3.2 mmol/L (3.5-5.1) Chloride Level 101 mmol/L (98-107) Carbon Dioxide Level 31 mmol/L (21-32) Anion Gap 7 (6-14) Blood Urea Nitrogen 20 mg/dL (8-26) Creatinine 1.9 mg/dL (0.7-1.3) Estimated GFR (Cockcroft-Gault) 34.3 Glucose Level 114 mg/dL (70-99) Calcium Level 8.0 mg/dL (8.5-10.1) Magnesium Level 1.8 mg/dL (1.8-2.4) Iron Level 49 ug/dL (65-175) Total Iron Binding Capacity 342 ug/dL (250-450) Iron Saturation 14 % (15-34) Ferritin 59 ng/mL (26-388) Test 01/28/17 08:01 01/28/17 08:40 01/28/17 12:10 01/28/17 16:56 Glucose (Fingerstick) 108 mg/dL (70-99) 103 mg/dL (70-99) 161 mg/dL (70-99) Prothrombin Time 14.7 SEC (11.7-14.0) Prothromb Time International Ratio 1.2 (0.8-1.1) Test 01/28/17 20:52 01/29/17 05:00 01/29/17 06:00 01/29/17 07:33 Glucose (Fingerstick) 197 mg/dL (70-99) 115 mg/dL (70-99) White Blood Count 8.0 x10^3/uL (4.0-11.0) Red Blood Count 3.26 x10^6/uL (4.30-5.70) Hemoglobin 8.5 g/dL (13.0-17.5) Hematocrit 25.8 % (39.0-53.0) Mean Corpuscular Volume 79 fL (79-100) Mean Corpuscular Hemoglobin 26 pg (25-35) Mean Corpuscular Hemoglobin Concent 33 g/dL (31-37) Red Cell Distribution Width 19.3 % (11.5-14.5) Platelet Count 151 x10^3/uL (140-400) Neutrophils (%) (Auto) 82 % (31-73) Lymphocytes (%) (Auto) 11 % (24-48) Monocytes (%) (Auto) 4 % (0-9) Eosinophils (%) (Auto) 3 % (0-3) Basophils (%) (Auto) 0 % (0-3) Neutrophils # (Auto) 6.6 x10^3uL (1.8-7.7) Lymphocytes # (Auto) 0.9 x10^3/uL (1.0-4.8) Monocytes # (Auto) 0.3 x10^3/uL (0.0-1.1) Eosinophils # (Auto) 0.2 x10^3/uL (0.0-0.7) Basophils # (Auto) 0.0 x10^3/uL (0.0-0.2) Sodium Level 141 mmol/L (136-145) Potassium Level 3.6 mmol/L (3.5-5.1) Chloride Level 104 mmol/L (98-107) Carbon Dioxide Level 31 mmol/L (21-32) Anion Gap 6 (6-14) Blood Urea Nitrogen 23 mg/dL (8-26) Creatinine 1.9 mg/dL (0.7-1.3) Estimated GFR (Cockcroft-Gault) 34.3 Glucose Level 117 mg/dL (70-99) Calcium Level 7.7 mg/dL (8.5-10.1) Magnesium Level 1.7 mg/dL (1.8-2.4) Laboratory Tests Test 01/28/17 08:40 01/28/17 12:10 01/28/17 16:56 01/28/17 20:52 Prothrombin Time 14.7 SEC (11.7-14.0) Prothromb Time International Ratio 1.2 (0.8-1.1) Glucose (Fingerstick) 103 mg/dL (70-99) 161 mg/dL (70-99) 197 mg/dL (70-99) Test 01/29/17 05:00 01/29/17 06:00 01/29/17 07:33 White Blood Count 8.0 x10^3/uL (4.0-11.0) Red Blood Count 3.26 x10^6/uL (4.30-5.70) Hemoglobin 8.5 g/dL (13.0-17.5) Hematocrit 25.8 % (39.0-53.0) Mean Corpuscular Volume 79 fL (79-100) Mean Corpuscular Hemoglobin 26 pg (25-35) Mean Corpuscular Hemoglobin Concent 33 g/dL (31-37) Red Cell Distribution Width 19.3 % (11.5-14.5) Platelet Count 151 x10^3/uL (140-400) Neutrophils (%) (Auto) 82 % (31-73) Lymphocytes (%) (Auto) 11 % (24-48) Monocytes (%) (Auto) 4 % (0-9) Eosinophils (%) (Auto) 3 % (0-3) Basophils (%) (Auto) 0 % (0-3) Neutrophils # (Auto) 6.6 x10^3uL (1.8-7.7) Lymphocytes # (Auto) 0.9 x10^3/uL (1.0-4.8) Monocytes # (Auto) 0.3 x10^3/uL (0.0-1.1) Eosinophils # (Auto) 0.2 x10^3/uL (0.0-0.7) Basophils # (Auto) 0.0 x10^3/uL (0.0-0.2) Sodium Level 141 mmol/L (136-145) Potassium Level 3.6 mmol/L (3.5-5.1) Chloride Level 104 mmol/L (98-107) Carbon Dioxide Level 31 mmol/L (21-32) Anion Gap 6 (6-14) Blood Urea Nitrogen 23 mg/dL (8-26) Creatinine 1.9 mg/dL (0.7-1.3) Estimated GFR (Cockcroft-Gault) 34.3 Glucose Level 117 mg/dL (70-99) Calcium Level 7.7 mg/dL (8.5-10.1) Magnesium Level 1.7 mg/dL (1.8-2.4) Glucose (Fingerstick) 115 mg/dL (70-99) Meds Current Medications Insulin Aspart (NovoLOG) 10 units ONCE ONCE SQ ; Start 01/28/17 at 18:30; Stop 01/28/17 at 18:31; Status Cancel Lidocaine/Sodium Bicarbonate (Buffered Lidocaine 1%) 20 ml 1X ONCE IJ Last administered on 01/28/17 10:24; Start 01/28/17 at 10:00; Stop 01/28/17 at 10:01 ; Status DC Lidocaine/Sodium Bicarbonate (Buffered Lidocaine 1%) 20 ml STK-MED ONCE IJ ; Start 01/28/17 at 09:54; Stop 01/28/17 at 09:55; Status DC Potassium Chloride (Klor-Con) 40 meq DAILY PO Last administered on 01/28/17 15 :53; Start 01/28/17 at 16:00 Assessment Assessment IMPRESSION: 1. 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 ARF WILNER ATN diuretics with underlying CKD II 3. R moderate pleural effusion underlying R sided heart failure 4. metabolic encephalopathy 5. leukocytosis w/o fever 6. Coronary artery disease. with h/o stent/CABG 7. History of myocardial infarction.>8wk 7. Hyperlipidemia. 8. History of colon cancer with colon resection. 9. Diabetes mellitus type 2, not controlled. poor compliance with diet 10. AFchronic eliquis AICD 11. mod MR 12. HTN 13. hyperkalemia 14. epitaxis 15. COPD-chronic obstructive stable at admit Assessment: a/c CHF Lasix 40mg IV x1 cardiology consult daily wt IO admit wt not obtained 01/24 154.4# 01/25 149.13 01/26 147.31 01/28 149.06 01/29 146.25 BNP 87075 edema LE-venous doppler report negative ECHO 01/24 EF 10-15%, grade IV diastolic, mod MR TR mild AR Pulmonic regurg, severe pulmonary HTN, CO 20-30% Dobutamine 5mcg 01/24 Renal: renew enestro planned in future Lasix 40mg po daily 01/26 Bi vent PPM pending 01/29 CXR 01/28 continued vascular congestion, patchy opacity LL base unchanged, pleural effusion improved post thoracentesis ARF WILNER ATN nephrology consult renal US negative Admit Na 137 01/29 141 K 4.6 3.6 BUN 79 23 Cr 4.4 1.9 Mg 3.2 1.7 Procalcitonin 0.2 TCD placed 01/24 with 1st HD completed 01/25 KCL and Mg replacements stopped 01/24 Dialysis held 01/28 UOP for 01/28 2175cc re eval 01/29 CKD III-IV baseline per renal Dyspnea multifactorial pulmonary consult Acute bronchitis pleural effusion-thoracentesis planned -eliquis needs held for 48h prior to procedure planned for Saturday WBC 15.5 01/26 7.2 ID consult empiric antibiotics: zithromax IV x1, zosyn IV , Zyvox po 01/24 nebulizer treatments 01/25 ID continue zyvox, zosyn, and zithromax po 01/28 thoracentesis 1600cc gloria thin fluid O2 2L 90-93% 01/28 Zithromax DC 01/28 O2 Sat 93-97%--improved abnormal TSH acute illness-re eval OP in 2-3 months AF Eliquis stopped prior to thoracentesis-resume post procedure Thoracentesis not due until Saturday ELiquis held 01/29 until post PPM CAD ASA and Plavix discontinued-resume post procedure Plavix not restart until post PPM metabolic encephalopathy monitor resolved DVT/GI prophylaxis SCD/ELEUTERIO PPI HTN SBP 130-140s on dobutamine infusion epitaxsis ENT consult off anticoag Plavix and ASA since admission 2L with NC in mouth 93% d/w Dr. Ortiz in ED, she cannot treat at this time Instructed to blow nose, 2-3 sprays afrin, clamp nose for 15min and release. resolved DM II FSBS/SSI Metformin DC prior to admit BS [phone] For further plan of care, please refer to the orders. COPD: Obstr Chronic Bronchitis Plan Plan For more details regarding further plans, please refer to the orders. TOM FOSTER MD 01/29/17 1059: IM PROGRESS NOTES- Assessment Assessment The patient was seen and examined by me. Chart reviewed and plan of care formulated. 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 For more details regarding further plans, please refer to the orders. NEVA LOONEY APRN Jan 29, 2017 08:11 TOM FOSTER MD Jan 29, 2017 10:59
[2017-01-29] MEDS: FUROSEMIDE 40 MG TABLET. PO SCH (09:00)
[2017-01-29] MEDS: POTASSIUM CHLORIDE 20 MEQ TABLET.ER. PO SCH (09:00)
[2017-01-29] MEDS: OMEGA-3 FATTY ACIDS/FISH OIL 1,000 MG CAPSULE. PO SCH (09:00)
[2017-01-29] MEDS: LINEZOLID 600 MG TABLET PO SCH ×2 (09:00→21:53)
[2017-01-29] MEDS: METOPROLOL SUCC 24HR ER 50 MG TAB.ER.24H. PO SCH (09:00)
[2017-01-29] MEDS: MULTIVITAMIN with MINERAL TABLET. PO SCH (09:00)
--- NOTE | 2017-01-29 10:59 | PDOC ---
SUBJECTIVE ROS WILNER/ CKD III Doign and feeling much better today CVS: + Orthopnea, no CP RESP: min SOB, min ADAIR GI: no Nausea, no Vomiting : no Dysuria, no Urgency OBJECTIVE Vital Signs Vital Signs Date Time Temp Pulse Resp B/P (MAP) Pulse Ox O2 Delivery O2 Flow Rate FiO2 01/29/17 08:00 Nasal Cannula 3.0 01/29/17 07:00 97.7 84 19 105/62 (76) 97 97.7 I & 0 Intake and Output 01/29/17 07:00 Intake Total 1030 ml Output Total 2175 ml Balance -1145 ml Intake Oral 980 ml IV Total 50 ml Output Urine Total 575 ml Chest Tube Drainage Total 1600 ml # Voids 6 PHYSICAL EXAM Physical Exam GEN: Awake, Oriented x 3, In no distress EYES: Vision Unchanged, Conjunctiva Normal EN: No EN Drainage, Mucous Membranes moist NECK: no JVD, min JVP, Supple, no Thyromegaly CVS: S1S2, soft Murmur, No Gallop, No Rub,no Edema RESP: rajendra basal Rales, no Rhonchi,no Acc. Muscle Use GI: BS + ve, NO Bruit, Non Tender, Non Distended : no CVA tenderness, no Suprapubic Tenderness DIAGNOSIS/ASSESSMENT Assessment & Plan ARF: Creat is much better with Ionotropes currently. Will reval after BiV placement. Current fluid and E-lyte status does not necessitate emergent need for dialysis. Will re-evaluate for dialysis in the am CKD III/ Iv at baseline based on CO. ANEMIA: Aranesp as ordered, Transfuse with next HD as needed HTN: Current BP meds as reviewed. See orders for changes. HYPOKALEMIA- replaced SEVERE CM WITH EF 10-15% with CAD - BiV AICD being placed today. If felt that he can do OP Ionotropes with occ IV Lasix - he may be ivon to put off going on Ch OP HD ([facility]) for the next few months. COMMENT/RELEVANT DATA Meds Current Medications Medications (Trade) Dose Ordered Sig/Carter Start Time Stop Time Status Last Admin Dose Admin Acetaminophen (Tylenol) 500 mg 1X PRN PRN 01/26/17 15:45 01/27/17 15:44 DC Albumin Human 200 ml @ 200 mls/hr 1X PRN PRN 8/12/17 15:45 01/26/17 21:44 DC Apixaban (Eliquis) 5 mg BID 01/23/17 12:30 01/23/17 20:26 DC Aspirin (Ecotrin) 81 mg [id number] 01/23/17 12:30 01/23/17 20:26 DC Atorvastatin Calcium (Lipitor) 40 mg QHS 01/24/17 21:00 01/28/17 21:13 40 MG Azithromycin (Zithromax) 250 mg DAILY 01/24/17 15:45 01/28/17 15:34 DC 01/27/17 08:23 250 MG Clopidogrel Bisulfate (Plavix) 75 mg DAILYWBKFT 01/24/17 08:00 UNV Diphenhydramine HCl (Benadryl) 25 mg 1X PRN PRN 01/26/17 15:45 01/27/17 15:44 DC Dobutamine HCl/ Dextrose 250 ml @ 10.5 mls/hr CONT PRN 01/24/17 12:30 01/28/17 11:26 10.5 MLS/HR Fish Oil (Fish Oil) 1,000 mg DAILY 01/23/17 12:30 01/28/17 15:49 1,000 MG Furosemide (Lasix) 40 mg DAILY 01/26/17 11:30 01/28/17 15:49 40 MG Heparin Sodium (Porcine) (Heparin Sodium) 2,600 unit 1X ONCE 01/24/17 13:45 01/24/17 13:46 DC 01/24/17 13:46 2,500 UNIT Heparin Sodium/ Sodium Chloride 1,000 unit 1X ONCE 01/24/17 13:45 01/24/17 13:46 DC Info (Anti-Coagulation Monitoring By Pharmacy) 1 each PRN DAILY PRN 01/23/17 12:00 01/23/17 20:26 DC Info (PHARMACY MONITORING -- do not chart) 1 each PRN DAILY PRN 01/26/17 15:45 Insulin Aspart (NovoLOG) 10 units ONCE ONCE 01/28/17 18:30 01/28/17 18:31 Cancel Lidocaine/Sodium Bicarbonate (Buffered Lidocaine 1%) 20 ml 1X ONCE 01/28/17 10:00 01/28/17 10:01 DC 01/28/17 10:24 2 ML Linezolid (Zyvox) 600 mg BID 01/23/17 18:30 01/28/17 21:13 600 MG Magnesium Hydroxide (Milk Of Magnesia) 2,400 mg PRN Q12HR PRN 01/23/17 11:30 Magnesium Oxide (Magnesium Oxide) 400 mg BID 01/23/17 21:00 01/24/17 08:19 DC 01/23/17 21:00 400 MG Metoprolol Succinate (Toprol Xl) 50 mg DAILY 01/23/17 12:30 01/28/17 15:50 50 MG Montelukast Sodium (Singulair) 10 mg QHS 01/23/17 21:00 01/28/17 21:13 10 MG Multivitamins (Thera M Plus) 1 tab DAILY 01/23/17 12:30 01/28/17 15:49 1 TAB Nitroglycerin (Nitrostat) 0.4 mg PRN Q5MIN PRN 01/23/17 11:45 Oxymetazoline HCl (Afrin) 3 spray PRN 1X PRN 01/26/17 09:45 Piperacillin Sod/ Tazobactam Sod 2.25 gm/Sodium Chloride 50 ml @ 100 mls/hr Q8HRS 01/23/17 18:00 01/29/17 05:49 100 MLS/HR Potassium Chloride (Klor-Con) 40 meq DAILY 01/28/17 16:00 01/28/17 15:53 40 MEQ Sacubitril/ Valsartan (Entresto 24 Mg-26 Mg) 1 tab BID 01/23/17 21:00 UNV Sodium Chloride 1,000 ml @ 400 mls/hr Q2H30M PRN 01/26/17 15:42 01/27/17 03:41 DC Sodium Chloride (Normal Saline Flush) 10 ml 1X PRN PRN 01/26/17 15:45 01/27/17 15:44 DC Lab Laboratory Tests Test 01/28/17 12:10 01/28/17 16:56 01/28/17 20:52 01/29/17 05:00 Glucose (Fingerstick) 103 mg/dL (70-99) 161 mg/dL (70-99) 197 mg/dL (70-99) White Blood Count 8.0 x10^3/uL (4.0-11.0) Red Blood Count 3.26 x10^6/uL (4.30-5.70) Hemoglobin 8.5 g/dL (13.0-17.5) Hematocrit 25.8 % (39.0-53.0) Mean Corpuscular Volume 79 fL (79-100) Mean Corpuscular Hemoglobin 26 pg (25-35) Mean Corpuscular Hemoglobin Concent 33 g/dL (31-37) Red Cell Distribution Width 19.3 % (11.5-14.5) Platelet Count 151 x10^3/uL (140-400) Neutrophils (%) (Auto) 82 % (31-73) Lymphocytes (%) (Auto) 11 % (24-48) Monocytes (%) (Auto) 4 % (0-9) Eosinophils (%) (Auto) 3 % (0-3) Basophils (%) (Auto) 0 % (0-3) Neutrophils # (Auto) 6.6 x10^3uL (1.8-7.7) Lymphocytes # (Auto) 0.9 x10^3/uL (1.0-4.8) Monocytes # (Auto) 0.3 x10^3/uL (0.0-1.1) Eosinophils # (Auto) 0.2 x10^3/uL (0.0-0.7) Basophils # (Auto) 0.0 x10^3/uL (0.0-0.2) Test 01/29/17 06:00 01/29/17 07:33 Sodium Level 141 mmol/L (136-145) Potassium Level 3.6 mmol/L (3.5-5.1) Chloride Level 104 mmol/L (98-107) Carbon Dioxide Level 31 mmol/L (21-32) Anion Gap 6 (6-14) Blood Urea Nitrogen 23 mg/dL (8-26) Creatinine 1.9 mg/dL (0.7-1.3) Estimated GFR (Cockcroft-Gault) 34.3 Glucose Level 117 mg/dL (70-99) Calcium Level 7.7 mg/dL (8.5-10.1) Magnesium Level 1.7 mg/dL (1.8-2.4) Glucose (Fingerstick) 115 mg/dL (70-99) TIMOTHY CONROY MD Jan 29, 2017 10:59
[2017-01-29] MEDS ORDERED: MAGNESIUM SULFATE 1GM 100 ML IV ONE (11:00)
--- NOTE | 2017-01-29 11:56 | PDOC ---
Infectious Disease Note Subjective Subjective Comfortable, denies pain, SOA at rest or chest discomfort Mild cough Better since admit ROS ROS GEN: Denies fevers, chills, sweats HEENT: Denies blurred vision, sore throat CV: Denies chest pain RESP: Denies shortness of air, cough GI: Denies n/v/d NEURO: Denies confusion, dizziness MSK: Denies weakness, joint pain/swelling Vital Sign Vital Signs Vital Signs Date Time Temp Pulse Resp B/P (MAP) Pulse Ox O2 Delivery O2 Flow Rate FiO2 01/29/17 10:52 98.2 77 18 96/51 (66) 96 Nasal Cannula 2.0 98.2 Physical Exam PHYSICAL EXAM GENERAL: Propped up in bed, relaxed appearance HEENT: Oral mucosa pink NECK: Supple. LUNGS: Diminished aeration right lower lung leon. Nonlabored. HEART: Normal S1 and S2. Left-sided AICD. ABDOMEN: Bowel sounds are present, soft, nontender. EXTREMITIES: Bilateral lower extremity edema. No cyanosis. SKIN: Without rash. Warm to touch. NEUROLOGIC: Awake and oriented x 3. No focal deficits appreciated. RUE-PICC. clean RIJ/temp HDC (01/24). clean Labs Lab Laboratory Tests Test 01/28/17 12:10 01/28/17 16:56 01/28/17 20:52 01/29/17 05:00 Glucose (Fingerstick) 103 mg/dL (70-99) 161 mg/dL (70-99) 197 mg/dL (70-99) White Blood Count 8.0 x10^3/uL (4.0-11.0) Red Blood Count 3.26 x10^6/uL (4.30-5.70) Hemoglobin 8.5 g/dL (13.0-17.5) Hematocrit 25.8 % (39.0-53.0) Mean Corpuscular Volume 79 fL (79-100) Mean Corpuscular Hemoglobin 26 pg (25-35) Mean Corpuscular Hemoglobin Concent 33 g/dL (31-37) Red Cell Distribution Width 19.3 % (11.5-14.5) Platelet Count 151 x10^3/uL (140-400) Neutrophils (%) (Auto) 82 % (31-73) Lymphocytes (%) (Auto) 11 % (24-48) Monocytes (%) (Auto) 4 % (0-9) Eosinophils (%) (Auto) 3 % (0-3) Basophils (%) (Auto) 0 % (0-3) Neutrophils # (Auto) 6.6 x10^3uL (1.8-7.7) Lymphocytes # (Auto) 0.9 x10^3/uL (1.0-4.8) Monocytes # (Auto) 0.3 x10^3/uL (0.0-1.1) Eosinophils # (Auto) 0.2 x10^3/uL (0.0-0.7) Basophils # (Auto) 0.0 x10^3/uL (0.0-0.2) Test 01/29/17 06:00 01/29/17 07:33 01/29/17 11:27 Sodium Level 141 mmol/L (136-145) Potassium Level 3.6 mmol/L (3.5-5.1) Chloride Level 104 mmol/L (98-107) Carbon Dioxide Level 31 mmol/L (21-32) Anion Gap 6 (6-14) Blood Urea Nitrogen 23 mg/dL (8-26) Creatinine 1.9 mg/dL (0.7-1.3) Estimated GFR (Cockcroft-Gault) 34.3 Glucose Level 117 mg/dL (70-99) Calcium Level 7.7 mg/dL (8.5-10.1) Magnesium Level 1.7 mg/dL (1.8-2.4) Glucose (Fingerstick) 115 mg/dL (70-99) 108 mg/dL (70-99) Objective Assessment Leukocytosis - resolved Right pleural effusion s/p thoracentesis 01/28 1400 Acute on chronic CHF WILNER on CKD. Now on HD Severe cardiomyopathy w/EF 10-15% DM II Plan Plan of Care Velia Betheasyn Awaiting pacemaker Await CT guided thoracentesis results Monitor labs and cultures Supportive care D/w family CLINTON ABRAHAM MD Jan 29, 2017 11:56
--- NOTE | 2017-01-29 12:51 | EKG ---
[facility] [address] [place] [address] Test Date: 2017-01-29 Test Time: 11:04:54 Pat Name: TONI NAIK Department: Room: 246 1 Gender: M Junior Programmer: VIVEK : 1935 Requested By: MELINDA FORTUNE Order Number: [id number] Reading MD: Melinda Fortune Measurements Intervals [place] Rate: 63 P: AK: QRS: 118 QRSD: 110 T: -164 QT: 470 QTc: 485 Interpretive Statements ACCELERATED JUNCTIONAL RHYTHM ABNORMAL RIGHT AXIS DEVIATION QRS(T) CONTOUR ABNORMALITY CONSISTENT WITH ANTEROSEPTAL INFARCT PROBABLY OLD T ABNORMALITY IN ANTEROLATERAL LEADS INFEROLATERAL LEADS ABNORMAL ECG Electronically Signed On 01-30-2017 20:35:24 CDT by Melinda Fortune
--- NOTE | 2017-01-29 13:24 | PDOC ---
PULMONARY PROGRESS NOTES Subjective less soa s/p thoracentesis Vitals Vital Signs Date Time Temp Pulse Resp B/P (MAP) Pulse Ox O2 Delivery O2 Flow Rate FiO2 01/29/17 10:52 98.2 77 18 96/51 (66) 96 Nasal Cannula 2.0 98.2 General: Alert, No acute distress Lungs: Other (decrease bs Right base) Cardiovascular: S1 Abdomen: Soft Neuro Exam: Alert Extremities: Other (2+edema) Labs Laboratory Tests Test 01/27/17 16:46 01/27/17 20:32 01/28/17 05:45 01/28/17 08:01 Glucose (Fingerstick) 139 mg/dL (70-99) 197 mg/dL (70-99) 108 mg/dL (70-99) White Blood Count 7.3 x10^3/uL (4.0-11.0) Red Blood Count 3.36 x10^6/uL (4.30-5.70) Hemoglobin 8.6 g/dL (13.0-17.5) Hematocrit 27.3 % (39.0-53.0) Mean Corpuscular Volume 81 fL (79-100) Mean Corpuscular Hemoglobin 26 pg (25-35) Mean Corpuscular Hemoglobin Concent 31 g/dL (31-37) Red Cell Distribution Width 19.4 % (11.5-14.5) Platelet Count 156 x10^3/uL (140-400) Neutrophils (%) (Auto) 79 % (31-73) Lymphocytes (%) (Auto) 13 % (24-48) Monocytes (%) (Auto) 5 % (0-9) Eosinophils (%) (Auto) 2 % (0-3) Basophils (%) (Auto) 0 % (0-3) Neutrophils # (Auto) 5.8 x10^3uL (1.8-7.7) Lymphocytes # (Auto) 1.0 x10^3/uL (1.0-4.8) Monocytes # (Auto) 0.4 x10^3/uL (0.0-1.1) Eosinophils # (Auto) 0.2 x10^3/uL (0.0-0.7) Basophils # (Auto) 0.0 x10^3/uL (0.0-0.2) Reticulocyte Count (auto) 1.4 % (0.5-2.5) Sodium Level 139 mmol/L (136-145) Potassium Level 3.2 mmol/L (3.5-5.1) Chloride Level 101 mmol/L (98-107) Carbon Dioxide Level 31 mmol/L (21-32) Anion Gap 7 (6-14) Blood Urea Nitrogen 20 mg/dL (8-26) Creatinine 1.9 mg/dL (0.7-1.3) Estimated GFR (Cockcroft-Gault) 34.3 Glucose Level 114 mg/dL (70-99) Calcium Level 8.0 mg/dL (8.5-10.1) Magnesium Level 1.8 mg/dL (1.8-2.4) Iron Level 49 ug/dL (65-175) Total Iron Binding Capacity 342 ug/dL (250-450) Iron Saturation 14 % (15-34) Ferritin 59 ng/mL (26-388) Test 01/28/17 08:40 01/28/17 12:10 01/28/17 16:56 01/28/17 20:52 Prothrombin Time 14.7 SEC (11.7-14.0) Prothromb Time International Ratio 1.2 (0.8-1.1) Glucose (Fingerstick) 103 mg/dL (70-99) 161 mg/dL (70-99) 197 mg/dL (70-99) Test 01/29/17 05:00 01/29/17 06:00 01/29/17 07:33 01/29/17 11:27 White Blood Count 8.0 x10^3/uL (4.0-11.0) Red Blood Count 3.26 x10^6/uL (4.30-5.70) Hemoglobin 8.5 g/dL (13.0-17.5) Hematocrit 25.8 % (39.0-53.0) Mean Corpuscular Volume 79 fL (79-100) Mean Corpuscular Hemoglobin 26 pg (25-35) Mean Corpuscular Hemoglobin Concent 33 g/dL (31-37) Red Cell Distribution Width 19.3 % (11.5-14.5) Platelet Count 151 x10^3/uL (140-400) Neutrophils (%) (Auto) 82 % (31-73) Lymphocytes (%) (Auto) 11 % (24-48) Monocytes (%) (Auto) 4 % (0-9) Eosinophils (%) (Auto) 3 % (0-3) Basophils (%) (Auto) 0 % (0-3) Neutrophils # (Auto) 6.6 x10^3uL (1.8-7.7) Lymphocytes # (Auto) 0.9 x10^3/uL (1.0-4.8) Monocytes # (Auto) 0.3 x10^3/uL (0.0-1.1) Eosinophils # (Auto) 0.2 x10^3/uL (0.0-0.7) Basophils # (Auto) 0.0 x10^3/uL (0.0-0.2) Sodium Level 141 mmol/L (136-145) Potassium Level 3.6 mmol/L (3.5-5.1) Chloride Level 104 mmol/L (98-107) Carbon Dioxide Level 31 mmol/L (21-32) Anion Gap 6 (6-14) Blood Urea Nitrogen 23 mg/dL (8-26) Creatinine 1.9 mg/dL (0.7-1.3) Estimated GFR (Cockcroft-Gault) 34.3 Glucose Level 117 mg/dL (70-99) Calcium Level 7.7 mg/dL (8.5-10.1) Magnesium Level 1.7 mg/dL (1.8-2.4) Glucose (Fingerstick) 115 mg/dL (70-99) 108 mg/dL (70-99) Laboratory Tests Test 01/28/17 16:56 01/28/17 20:52 01/29/17 05:00 01/29/17 06:00 Glucose (Fingerstick) 161 mg/dL (70-99) 197 mg/dL (70-99) White Blood Count 8.0 x10^3/uL (4.0-11.0) Red Blood Count 3.26 x10^6/uL (4.30-5.70) Hemoglobin 8.5 g/dL (13.0-17.5) Hematocrit 25.8 % (39.0-53.0) Mean Corpuscular Volume 79 fL (79-100) Mean Corpuscular Hemoglobin 26 pg (25-35) Mean Corpuscular Hemoglobin Concent 33 g/dL (31-37) Red Cell Distribution Width 19.3 % (11.5-14.5) Platelet Count 151 x10^3/uL (140-400) Neutrophils (%) (Auto) 82 % (31-73) Lymphocytes (%) (Auto) 11 % (24-48) Monocytes (%) (Auto) 4 % (0-9) Eosinophils (%) (Auto) 3 % (0-3) Basophils (%) (Auto) 0 % (0-3) Neutrophils # (Auto) 6.6 x10^3uL (1.8-7.7) Lymphocytes # (Auto) 0.9 x10^3/uL (1.0-4.8) Monocytes # (Auto) 0.3 x10^3/uL (0.0-1.1) Eosinophils # (Auto) 0.2 x10^3/uL (0.0-0.7) Basophils # (Auto) 0.0 x10^3/uL (0.0-0.2) Sodium Level 141 mmol/L (136-145) Potassium Level 3.6 mmol/L (3.5-5.1) Chloride Level 104 mmol/L (98-107) Carbon Dioxide Level 31 mmol/L (21-32) Anion Gap 6 (6-14) Blood Urea Nitrogen 23 mg/dL (8-26) Creatinine 1.9 mg/dL (0.7-1.3) Estimated GFR (Cockcroft-Gault) 34.3 Glucose Level 117 mg/dL (70-99) Calcium Level 7.7 mg/dL (8.5-10.1) Magnesium Level 1.7 mg/dL (1.8-2.4) Test 01/29/17 07:33 01/29/17 11:27 Glucose (Fingerstick) 115 mg/dL (70-99) 108 mg/dL (70-99) Medications Active Scripts Medications Dose Route/Sig Max Daily Dose Days Date Category Metolazone 2.5 Mg Tablet 2.5 Mg PO SATURDAY -SATURDAY PRN 01/23/17 Reported Entresto 24 mg-26 mg Tablet (Sacubitril/Valsartan) 1 Each Tablet 1 Each PO BID 01/23/17 Reported Aspir 81 (Aspirin) 81 Mg Tablet.dr 81 Mg PO 01/23/17 Reported Mag-Oxide (Magnesium Oxide) 400 Mg Tablet 1 Tab PO BID 01/23/17 Reported NITROGLYCERIN SubLingual (Nitroglycerin) 0.4 Mg Tab.subl 0.4 Mg SL PRN Q5MIN PRN 01/23/17 Reported Metoprolol Succinate ( Xl ) (Metoprolol Succinate) 25 Mg Tab.er.24h 50 Mg PO DAILY 01/23/17 Reported Eliquis (Apixaban) 5 Mg Tablet 5 Mg PO BID 01/23/17 Reported Amiodarone Hcl 200 Mg Tablet 200 Mg PO TID 04/24/16 Rx Savaysa (Edoxaban Tosylate) 60 Mg Tablet 60 Mg PO QHS 04/21/16 Reported Rome-3 Fish Oil 1,000 Mg Sfgl (Rome-3/Dha/Epa/Fish Oil) 1,000 Mg Capsule 1,000 Mg PO DAILY 10/31/15 Reported Metformin Hcl 850 Mg Tablet 850 Mg PO BIDWMEALS 10/31/15 Reported Plavix (Clopidogrel Bisulfate) 75 Mg Tablet 75 Mg PO DAILY 10/31/15 Reported Crestor (Rosuvastatin Calcium) 20 Mg Tablet 20 Mg PO HS 05/29/14 Reported Losartan Potassium 25 Mg Tablet 50 Mg PO DAILY 05/29/14 Reported Furosemide 40 Mg Tablet 40 Mg PO DAILY 05/29/14 Reported Potassium Chloride 20 Meq Tab.er.prt 20 Meq PO DAILY 05/29/14 Reported Impression . 1. Acute hypoxic respiratory failure secondary to acute on chronic systolic heart failure and moderate-sized right pleural effusion. 2. 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 3. No significant history of tobacco use. 4. Acute on chronic renal failure. Suspect secondary to poor cardiac pump function. 5. Doubt Pneumonia/ ct chest with large effusion, no consolidation Plan . 1. s/p thoracentesis . re-start Eliquis and Plavix 2. Follow Cardiology recommendations. 3. Follow renal recommendations. dialysis 4. PO antibiotics. BABATUNDE THEODORE MD Jan 29, 2017 13:24
--- NOTE | 2017-01-29 13:43 | PATHOLOGY ---
CYTOPATHOLOGY REPORT CLINICAL HISTORY: Acute CHF, Dyspnea. SPECIMEN(S) RECEIVED: A.Pleural fluid, Right FINAL DIAGNOSIS: Right pleural fluid, ThinPrep and cell block: - No malignant cells identified. - Few focally reactive mesothelial cells are identified within a background of scattered inflammatory cells. (JPM:db; 01/29/2017) PATHOLOGIST: Patel Hooker M.D. REPORT ELECTRONICALLY SIGNED BY: Patel Hooker M.D. DATE/TIME: 01/29/2017 13:43 GROSS PATHOLOGY: A. Pleural fluid, Right: The specimen is submitted unfixed, labeled "Fernandez Naik". Received by the Cytology Department is 30 mL of reddish-orange fluid. One ThinPrep slide and a cell block were prepared. (clt 01.28.2017) ENAMEL SPRAYER(S): CASTRO Cabral(ASCP) INITIAL CPT CODE(S): A; 54898, 62219 Professional services performed by [facility] [place] [address] Technical services performed by [facility] at [address] [place] [address], [address] [address]. PATIENT: EFRNANDEZ NAIK /AGE: 6 1935 (Age: 81) SEX: M PATIENT #: [id number] ALT CASE #: SPECIMEN COLLECTION DATE: 01/28/2017 SPECIMEN RECEIVED DATE: 01/28/[address] [facility] [address] [place] [address], [address] [place] [address] PHONE: [phone] DIRECTOR: Kenneth Neff M.D. * * * END OF REPORT * * *
[2017-01-29] MEDS ORDERED: BACITRACIN 50,000 UNIT in IV NORMAL SALINE 250ML 250 ML IRR ONE (15:30)
[2017-01-29] MEDS ORDERED: fentaNYL PF VIAL 100 MCG/2 ML VIAL ONE (15:39)
[2017-01-29] MEDS ORDERED: MIDAZOLAM HCL/PF 2 MG/2 ML VIAL. ONE (15:39)
[2017-01-29] MEDS ORDERED: MIDAZOLAM HCL/PF 2 MG/2 ML VIAL. IV ONE (15:45)
[2017-01-29] MEDS ORDERED: fentaNYL PF VIAL 100 MCG/2 ML VIAL IV ONE (15:45)
[2017-01-29] MEDS ORDERED: LIDOCAINE 2%/EPI 1:100,000 20 ML VIAL. IJ ONE (15:45)
[2017-01-29] MEDS ORDERED: LIDOCAINE 2%/EPI 1:100,000 20 ML VIAL. ONE (15:59)
[2017-01-29] MEDS ORDERED: IOHEXOL 300 MG/ML 100ML VIAL. ONE (16:04)
--- NOTE | 2017-01-29 17:12 | PDOC ---
MODERATE SEDATION ASSESSMENT RISKS/ALTERNATIVES Risks/Alternatives Risks and alternatives of this type of sedation and procedure discussed with: RISK/ALTERNATIVES: Patient H & P ON CHART H & P H & P on chart and reviewed for co-morbid conditions and appropriate labs. H&P ON CHART: Yes STATUS PREG STATUS ASSESSED: N/A MEDS/ALLERGIES REVIEWED Meds/Allergies Reviewed Medications and Allergies including time and route of recently administered narcotics and sedatives. MEDS/ALLERGIES REVIEWED: Yes ASA RATING ASA RATING: II AIRWAY ASSESSMENT Airway Assessment Airway patency, oral function limitations, presence of caps, crowns, dentures, partials, and ability to extend neck assessed. AIRWAY ASSESSMENT: Yes MALLAMPATI SCORE MALLAMPATI SCORE: II PRE-SEDATION ASSESSMENT PRE-SEDATION ASSESSMENT: Yes YESENIA CHACON MD Jan 29, 2017 17:12
[2017-01-29] MEDS ORDERED: NO ANTICOAGULANT THERAPY. MC PRN (17:15)
--- NOTE | 2017-01-29 17:23 | CARD ---
APPROVED REPORT EXAM Successful [employer] automatic implantable cardioverter defibrillator upgrade to biventricular ICD/C RT-D INDICATIONS Cardiac resynchronization therapy in a patient with chronic systolic heart failure and prolonged QRS interval 160 ms PROCEDURE After explaining the risks, benefits, and alternative options, informed consent was obtained from the patient. The patient was brought to the cardiac catheterization lab and the left chest and shoulder were prepp ed and draped in the usual fashion. 30 mL of 2% lidocaine was infiltrated into the skin and subcutaneous tissues for local anesthesia. An incision was made over the previous scar and using blunt dissection and cautery the pocket was opene d, capsule exposed and opened and the previously placed generator removed. The right atrial and right ventricular leads were detached, interrogated and found to be functioning well. Venous access was ob tained in the left subclavian vein and 9 [place] coronary sinus sheath was inserted. With the help of contrast injections using CASS2 catheter within the right atrium, the coronary sinus ostium was engag ed and the sheath advanced. With the balloontipped catheter inflated in the coronary sinus venogram w as obtained to identify the appropriate posterolateral vein. Subsequently, a [employer] left ventricu lar lead was advanced into the posterolateral vein under fluoroscopic guidance. This lead along with the previously placed right atrial and right ventricular leads were attached percent juice biventricu lar ICD/[employer]-D generator model [id number] serial number [id number]. This was placed in the pocket was sub sequently closed in 3 layers. Hemostasis was secured. There were no immediate complications. The left ventricular lead showed sensing amplitude of 0.75 V at the end of procedure. CONCLUSION Successful [employer] AICD upgrade to biventricular ICD/[employer]-D for cardiac resynchronization therapy i n a patient with chronic systolic heart failure and prolonged QRS interval.
--- NOTE | 2017-01-29 18:31 | RAD ---
PORTABLE CHEST 1V History: post pacemaker Comparison: January 28, 2017 Findings: There is triple lead left electronic cardiac device, no pneumothorax. There is again right internal jugular venous catheter with the tip near the cavoatrial junction. There is probable trace residual right pleural effusion although improved aeration of the right lung base. There is patchy airspace opacity of the lung bases bilaterally. The central pulmonary vasculature remains prominent although somewhat more distinct on this exam. Pericardial cardiac silhouette is stable. Impression: 1. There is no pneumothorax. There is triple lead left electronic cardiac device. There is improved aeration of the right lung base, some patchy residual airspace opacity of the lung bases which may be due to edema although infiltrates not excluded. Electronically signed by: Dayron Cotto MD (01/29/2017 6:28 PM) [facility]
--- NOTE | 2017-01-29 20:13 | PDOC ---
Provider Note Provider Note Wdith of paced QRS complexes was 200 ms. The width of conducted QRS complex was 140 ms. AV delay was already at 300 ms and so it could not be further lengthened.. He was pacing more than 25% of the times and so he is a candidate for bi-V pacemaker. Discussed with Dr. Levy. MELINDA FORTUNE MD Jan 29, 2017 20:13
[2017-01-29] MEDS ORDERED: DARBEPOETIN ALFA 60 MCG/0.3 ML DISP.SYRIN. SQ SCH (21:00)
[2017-01-29] MEDS: MONTELUKAST SODIUM 10 MG TABLET. PO SCH (21:53)
[2017-01-29] MEDS: ATORVASTATIN CALCIUM 40 MG TABLET. PO SCH (21:53)
[2017-01-30 03:00] VITALS: BP 128/67
[2017-01-30 04:47] LABS: BASO % 0 % (0-3); EOS % 2 % (0-3); HEMATOCRIT 27.4 % (39.0-53.0); HEMOGLOBIN 8.9 g/dL (13.0-17.5); LYMPH # 0.6 x10^3/uL (1.0-4.8); LYMPH % 7 % (24-48); MEAN CORPUSCULAR HEMOGLOBIN 26 pg (25-35); MEAN CORPUSCULAR HGB CONC 33 g/dL (31-37); MEAN CORPUSCULAR VOLUME 80 fL (79-100); MONO % 4 % (0-9); NEUT % 87 % (31-73); PLATELET COUNT 143 x10^3/uL (140-400); RED BLOOD COUNT 3.43 x10^6/uL (4.30-5.70); RED CELL DISTRIBUTION WIDTH 19.6 % (11.5-14.5); WHITE BLOOD COUNT 9.1 x10^3/uL (4.0-11.0)
[2017-01-30 05:16] LABS: CALCIUM 8.4 mg/dL (8.5-10.1); CREATININE 1.8 mg/dL (0.7-1.3); GFR 36.5; POTASSIUM 3.8 mmol/L (3.5-5.1)
[2017-01-30] MEDS: PIPERACILLIN/TAZOBACTAM 2.25 GM in IV NORMAL SALINE 50ML 50 ML IV SCH (05:28)
[2017-01-30 07:00] VITALS: BP 139/73
[2017-01-30] MEDS: INSULIN ASPART 300 UNITS/3 ML INSULN.PEN SQ SCH ×3 (07:30→17:59)
[2017-01-30] MEDS ORDERED: ANTI-COAG MONITOR BY PHARMACY. MC PRN (08:00)
--- NOTE | 2017-01-30 08:06 | PDOC ---
Infectious Disease Note Subjective Subjective Comfortable, denies pain, SOA at rest or chest discomfort Mild cough - some better Better since admit ROS ROS GEN: Denies fevers, chills, sweats HEENT: Denies blurred vision, sore throat CV: Denies chest pain RESP: Denies shortness of air, cough GI: Denies n/v/d NEURO: Denies confusion, dizziness MSK: Denies weakness, joint pain/swelling Vital Sign Vital Signs Vital Signs Date Time Temp Pulse Resp B/P (MAP) Pulse Ox O2 Delivery O2 Flow Rate FiO2 01/30/17 07:00 97.3 66 19 139/73 (95) 98 Nasal Cannula 2.0 97.3 Physical Exam PHYSICAL EXAM GENERAL: Propped up in bed, relaxed appearance HEENT: Oral mucosa pink NECK: Supple. LUNGS: Diminished aeration right lower lung leon. Nonlabored. HEART: Normal S1 and S2. Left-sided AICD/sling ABDOMEN: Bowel sounds are present, soft, nontender. EXTREMITIES: Bilateral lower extremity edema. No cyanosis. SKIN: Without rash. Warm to touch. NEUROLOGIC: Awake and oriented x 3. No focal deficits appreciated. RUE-PICC. clean RIJ/temp HDC (01/24). clean Labs Lab Laboratory Tests Test 01/29/17 11:27 01/29/17 18:00 01/29/17 20:34 01/30/17 04:00 Glucose (Fingerstick) 108 mg/dL (70-99) 140 mg/dL (70-99) 219 mg/dL (70-99) White Blood Count 9.1 x10^3/uL (4.0-11.0) Red Blood Count 3.43 x10^6/uL (4.30-5.70) Hemoglobin 8.9 g/dL (13.0-17.5) Hematocrit 27.4 % (39.0-53.0) Mean Corpuscular Volume 80 fL (79-100) Mean Corpuscular Hemoglobin 26 pg (25-35) Mean Corpuscular Hemoglobin Concent 33 g/dL (31-37) Red Cell Distribution Width 19.6 % (11.5-14.5) Platelet Count 143 x10^3/uL (140-400) Neutrophils (%) (Auto) 87 % (31-73) Lymphocytes (%) (Auto) 7 % (24-48) Monocytes (%) (Auto) 4 % (0-9) Eosinophils (%) (Auto) 2 % (0-3) Basophils (%) (Auto) 0 % (0-3) Neutrophils # (Auto) 7.9 x10^3uL (1.8-7.7) Lymphocytes # (Auto) 0.6 x10^3/uL (1.0-4.8) Monocytes # (Auto) 0.4 x10^3/uL (0.0-1.1) Eosinophils # (Auto) 0.2 x10^3/uL (0.0-0.7) Basophils # (Auto) 0.0 x10^3/uL (0.0-0.2) Sodium Level 140 mmol/L (136-145) Potassium Level 3.8 mmol/L (3.5-5.1) Chloride Level 102 mmol/L (98-107) Carbon Dioxide Level 31 mmol/L (21-32) Anion Gap 7 (6-14) Blood Urea Nitrogen 22 mg/dL (8-26) Creatinine 1.8 mg/dL (0.7-1.3) Estimated GFR (Cockcroft-Gault) 36.5 Glucose Level 172 mg/dL (70-99) Calcium Level 8.4 mg/dL (8.5-10.1) Magnesium Level 2.0 mg/dL (1.8-2.4) Test 01/30/17 07:43 Glucose (Fingerstick) 106 mg/dL (70-99) Objective Assessment Leukocytosis - resolved Right pleural effusion s/p thoracentesis 01/28 1400 Acute on chronic CHF WILNER on CKD. Now on HD Severe cardiomyopathy w/EF 10-15% s/p pacemaker 01/29 DM II Plan Plan of Care Cont Zyvox (01/23) Change Zosyn to augmentin Await CT guided thoracentesis results 01/28 Monitor labs and cultures Supportive care CLINTON ABRAHAM MD Jan 30, 2017 08:06
--- NOTE | 2017-01-30 08:40 | PDOC ---
KARENHubertNEVA [facility] 01/30/17 0840: IM PROGRESS NOTES- Subjective Subjective No dyspnea. Objective Objective no distress Vitals Vital Signs Date Time Temp Pulse Resp B/P (MAP) Pulse Ox O2 Delivery O2 Flow Rate FiO2 01/30/17 07:00 97.3 66 19 139/73 (95) 98 Nasal Cannula 2.0 97.3 Input & Output Intake and Output 01/30/17 07:00 Intake Total 770 ml Output Total 500 ml Balance 270 ml Intake Oral 490 ml IV Total 200 ml Blood Product IV Normal Saline Flush 80 ml Output Urine Total 500 ml # Voids 1 Physical Exam Physical Exam General appearance - alert, ill; appearing, and in no distress Mental Status - alert, oriented to person, place, and time, affect appropriate to mood Head - normal Nose -active bleeding bilateral nares Chest - clear to auscultation, no wheezes, improved BS RLL Heart - S1 and S2 normal, irreg Abdomen - soft, nontender, nondistended, BS + Neurological - no acute neurological deficits noted. confusion improving. Musculoskeletal - no muscular tenderness noted Extremities - trace edema Skin - warm and dry Labs Laboratory Tests Test 01/28/17 08:40 01/28/17 12:10 01/28/17 16:56 01/28/17 20:52 Prothrombin Time 14.7 SEC (11.7-14.0) Prothromb Time International Ratio 1.2 (0.8-1.1) Glucose (Fingerstick) 103 mg/dL (70-99) 161 mg/dL (70-99) 197 mg/dL (70-99) Test 01/29/17 05:00 01/29/17 06:00 01/29/17 07:33 01/29/17 11:27 White Blood Count 8.0 x10^3/uL (4.0-11.0) Red Blood Count 3.26 x10^6/uL (4.30-5.70) Hemoglobin 8.5 g/dL (13.0-17.5) Hematocrit 25.8 % (39.0-53.0) Mean Corpuscular Volume 79 fL (79-100) Mean Corpuscular Hemoglobin 26 pg (25-35) Mean Corpuscular Hemoglobin Concent 33 g/dL (31-37) Red Cell Distribution Width 19.3 % (11.5-14.5) Platelet Count 151 x10^3/uL (140-400) Neutrophils (%) (Auto) 82 % (31-73) Lymphocytes (%) (Auto) 11 % (24-48) Monocytes (%) (Auto) 4 % (0-9) Eosinophils (%) (Auto) 3 % (0-3) Basophils (%) (Auto) 0 % (0-3) Neutrophils # (Auto) 6.6 x10^3uL (1.8-7.7) Lymphocytes # (Auto) 0.9 x10^3/uL (1.0-4.8) Monocytes # (Auto) 0.3 x10^3/uL (0.0-1.1) Eosinophils # (Auto) 0.2 x10^3/uL (0.0-0.7) Basophils # (Auto) 0.0 x10^3/uL (0.0-0.2) Sodium Level 141 mmol/L (136-145) Potassium Level 3.6 mmol/L (3.5-5.1) Chloride Level 104 mmol/L (98-107) Carbon Dioxide Level 31 mmol/L (21-32) Anion Gap 6 (6-14) Blood Urea Nitrogen 23 mg/dL (8-26) Creatinine 1.9 mg/dL (0.7-1.3) Estimated GFR (Cockcroft-Gault) 34.3 Glucose Level 117 mg/dL (70-99) Calcium Level 7.7 mg/dL (8.5-10.1) Magnesium Level 1.7 mg/dL (1.8-2.4) Glucose (Fingerstick) 115 mg/dL (70-99) 108 mg/dL (70-99) Test 01/29/17 18:00 01/29/17 20:34 01/30/17 04:00 01/30/17 07:43 Glucose (Fingerstick) 140 mg/dL (70-99) 219 mg/dL (70-99) 106 mg/dL (70-99) White Blood Count 9.1 x10^3/uL (4.0-11.0) Red Blood Count 3.43 x10^6/uL (4.30-5.70) Hemoglobin 8.9 g/dL (13.0-17.5) Hematocrit 27.4 % (39.0-53.0) Mean Corpuscular Volume 80 fL (79-100) Mean Corpuscular Hemoglobin 26 pg (25-35) Mean Corpuscular Hemoglobin Concent 33 g/dL (31-37) Red Cell Distribution Width 19.6 % (11.5-14.5) Platelet Count 143 x10^3/uL (140-400) Neutrophils (%) (Auto) 87 % (31-73) Lymphocytes (%) (Auto) 7 % (24-48) Monocytes (%) (Auto) 4 % (0-9) Eosinophils (%) (Auto) 2 % (0-3) Basophils (%) (Auto) 0 % (0-3) Neutrophils # (Auto) 7.9 x10^3uL (1.8-7.7) Lymphocytes # (Auto) 0.6 x10^3/uL (1.0-4.8) Monocytes # (Auto) 0.4 x10^3/uL (0.0-1.1) Eosinophils # (Auto) 0.2 x10^3/uL (0.0-0.7) Basophils # (Auto) 0.0 x10^3/uL (0.0-0.2) Sodium Level 140 mmol/L (136-145) Potassium Level 3.8 mmol/L (3.5-5.1) Chloride Level 102 mmol/L (98-107) Carbon Dioxide Level 31 mmol/L (21-32) Anion Gap 7 (6-14) Blood Urea Nitrogen 22 mg/dL (8-26) Creatinine 1.8 mg/dL (0.7-1.3) Estimated GFR (Cockcroft-Gault) 36.5 Glucose Level 172 mg/dL (70-99) Calcium Level 8.4 mg/dL (8.5-10.1) Magnesium Level 2.0 mg/dL (1.8-2.4) Laboratory Tests Test 01/29/17 11:27 01/29/17 18:00 01/29/17 20:34 01/30/17 04:00 Glucose (Fingerstick) 108 mg/dL (70-99) 140 mg/dL (70-99) 219 mg/dL (70-99) White Blood Count 9.1 x10^3/uL (4.0-11.0) Red Blood Count 3.43 x10^6/uL (4.30-5.70) Hemoglobin 8.9 g/dL (13.0-17.5) Hematocrit 27.4 % (39.0-53.0) Mean Corpuscular Volume 80 fL (79-100) Mean Corpuscular Hemoglobin 26 pg (25-35) Mean Corpuscular Hemoglobin Concent 33 g/dL (31-37) Red Cell Distribution Width 19.6 % (11.5-14.5) Platelet Count 143 x10^3/uL (140-400) Neutrophils (%) (Auto) 87 % (31-73) Lymphocytes (%) (Auto) 7 % (24-48) Monocytes (%) (Auto) 4 % (0-9) Eosinophils (%) (Auto) 2 % (0-3) Basophils (%) (Auto) 0 % (0-3) Neutrophils # (Auto) 7.9 x10^3uL (1.8-7.7) Lymphocytes # (Auto) 0.6 x10^3/uL (1.0-4.8) Monocytes # (Auto) 0.4 x10^3/uL (0.0-1.1) Eosinophils # (Auto) 0.2 x10^3/uL (0.0-0.7) Basophils # (Auto) 0.0 x10^3/uL (0.0-0.2) Sodium Level 140 mmol/L (136-145) Potassium Level 3.8 mmol/L (3.5-5.1) Chloride Level 102 mmol/L (98-107) Carbon Dioxide Level 31 mmol/L (21-32) Anion Gap 7 (6-14) Blood Urea Nitrogen 22 mg/dL (8-26) Creatinine 1.8 mg/dL (0.7-1.3) Estimated GFR (Cockcroft-Gault) 36.5 Glucose Level 172 mg/dL (70-99) Calcium Level 8.4 mg/dL (8.5-10.1) Magnesium Level 2.0 mg/dL (1.8-2.4) Test 01/30/17 07:43 Glucose (Fingerstick) 106 mg/dL (70-99) Meds Current Medications Amoxicillin/ Clavulanate Potassium (Augmentin 500/ 125mg) 1 tab BID PO ; Start 01/30/17 at 09:00 Apixaban (Eliquis) 2.5 mg BID PO ; Start 01/30/17 at 21:00 Aspirin (Children'S Aspirin) 81 mg DAILYWBKFT PO ; Start 01/30/17 at 08:00 Bacitracin 10488 unit/Sodium Chloride 250 ml @ 250 mls/hr 1X ONCE IRR Last administered on 01/29/17 15:30; Start 01/29/17 at 15:30; Stop 01/29/17 at 16:29 ; Status DC Cefazolin Sodium 50 ml @ 100 mls/hr 1X ONCE IV Last administered on 17:08; Start 01/29/17 at 15:45; Stop 01/29/17 at 16:14; Status DC Cefazolin Sodium 50 ml @ As Directed STK-MED ONCE IV ; Start 01/29/17 at 15:39; Stop 01/29/17 at 15:40; Status DC Cefazolin Sodium 1 gm/Sodium Chloride 50 ml @ 100 mls/hr 1X ONCE IV Last administered on 01/29/17 23:10; Start 01/29/17 at 23:00; Stop 01/29/17 at 23:29 ; Status DC Darbepoetin Seven (Aranesp) 60 mcg WEEKLYHS SQ Last administered on 01/29/17 21 :52; Start 01/29/17 at 21:00 Fentanyl Citrate (Fentanyl 2ml Vial) 100 mcg 1X ONCE IV Last administered on 17:07; Start 01/29/17 at 15:45; Stop 01/29/17 at 15:46; Status DC Fentanyl Citrate (Fentanyl 2ml Vial) 100 mcg STK-MED ONCE .ROUTE ; Start at 15:39; Stop 01/29/17 at 15:40; Status DC Info 1 ea CONT PRN PRN MC PER PROTOCOL; Start 01/29/17 at 17:15; Stop 01/30/17 at 07:53; Status DC Info (Anti-Coagulation Monitoring By Pharmacy) 1 each PRN DAILY PRN MC SEE COMMENTS; Start 01/30/17 at 08:00 Iohexol (Omnipaque 300 Mg/ml) 100 ml STK-MED ONCE .ROUTE ; Start 01/29/17 at 16: 04; Stop 01/29/17 at 16:05; Status DC Lidocaine/ Epinephrine (Xylocaine 2%-Epi 1:100,000) 20 ml STK-MED ONCE .ROUTE ; Start 01/29/17 at 15:59; Stop 01/29/17 at 16:00; Status DC Lidocaine/ Epinephrine (Xylocaine 2%-Epi 1:100,000) 40 ml 1X ONCE IJ Last administered on 01/29/17 17:06; Start 01/29/17 at 15:45; Stop 01/29/17 at 15:46 ; Status DC Magnesium Sulfate/ Dextrose 100 ml @ 100 mls/hr 1X ONCE IV Last administered on 01/29/17 14:38; Start 01/29/17 at 11:00; Stop 01/29/17 at 11:59; Status DC Midazolam HCl (Versed) 2 mg 1X ONCE IV Last administered on 01/29/17 17:06; Start 01/29/17 at 15:45; Stop 01/29/17 at 15:46; Status DC Midazolam HCl (Versed) 2 mg STK-MED ONCE .ROUTE ; Start 01/29/17 at 15:39; Stop 01/29/17 at 15:40; Status DC Assessment Assessment IMPRESSION: 1. 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 ARF WILNER ATN diuretics with underlying CKD II 3. R moderate pleural effusion underlying R sided heart failure 4. metabolic encephalopathy 5. leukocytosis w/o fever 6. Coronary artery disease. with h/o stent/CABG 7. History of myocardial infarction.>8wk 7. Hyperlipidemia. 8. History of colon cancer with colon resection. 9. Diabetes mellitus type 2, not controlled. poor compliance with diet 10. AFchronic eliquis AICD 11. mod MR 12. HTN 13. hyperkalemia 14. epitaxis 15. COPD-chronic obstructive stable at admit Assessment: a/c CHF Lasix 40mg IV x1 cardiology consult daily wt IO admit wt not obtained 01/24 154.4# 01/25 149.13 01/26 147.31 01/28 149.06 01/29 146.25 01/30 148.38 BNP 16287 edema LE-venous doppler report negative ECHO 01/24 EF 10-15%, grade IV diastolic, mod MR TR mild AR Pulmonic regurg, severe pulmonary HTN, CO 20-30% Dobutamine 5mcg 01/24 DC 01/29 Renal: renew enestro planned in future Lasix 40mg po daily 01/26 Bi vent AICD placed 01/29-shoulder immobilizer CXR 01/28 continued vascular congestion, patchy opacity LL base unchanged, pleural effusion improved post thoracentesis 01/29 CXR improving OP dobutamine infusion with occasional lasix per renal note ARF WILNER ATN nephrology consult renal US negative Admit Na 137 01/30 140 K 4.6 3.8 BUN 79 22 Cr 4.4 1.8 Mg 3.2 2.0 Procalcitonin 0.2 TCD placed 01/24 with 1st HD completed 01/25 KCL and Mg replacements stopped 01/24 Dialysis held 01/28 UOP for 01/28 2175cc re eval 01/29 Dialysis held 01/29 CKD III-IV baseline per renal Dyspnea multifactorial pulmonary consult Acute bronchitis pleural effusion-thoracentesis planned -eliquis needs held for 48h prior to procedure planned for Saturday WBC 15.5 01/30 9.1 ID consult empiric antibiotics: zithromax IV x1, zosyn IV , Zyvox po 01/24 nebulizer treatments 01/25 ID continue zyvox, zosyn, and zithromax po 01/28 thoracentesis 1600cc gloria thin fluid -culture prelim negative O2 2L 90-93% 01/28 Zithromax DC 01/28 O2 Sat 93-97%--improved Zosyn changed to augmentin 01/29 abnormal TSH acute illness-re eval OP in 2-3 months AF Eliquis stopped prior to thoracentesis-resume post procedure Thoracentesis not due until Saturday ELiquis held 01/29 until post PPM REsume Eliquis 01/30 2.5mg bid CAD ASA and Plavix discontinued-resume post procedure Plavix not restart until post PPM ASA 81mg resumed 01/29 metabolic encephalopathy monitor resolved DVT/GI prophylaxis SCD/ELEUTERIO PPI HTN SBP 130-140s on dobutamine infusion epitaxsis ENT consult off anticoag Plavix and ASA since admission 2L with NC in mouth 93% d/w Dr. Ortiz in ED, she cannot treat at this time Instructed to blow nose, 2-3 sprays afrin, clamp nose for 15min and release. resolved DM II FSBS/SSI Metformin DC prior to admit BS 108-219 COPD: Obstr Chronic Bronchitis stable For further plan of care, please refer to the orders. The patient was seen and examined by me. Chart reviewed and plan of care formulated. Discussed with, reviewed and agree with SERVICE PROVIDER's notes, plan of care and orders with modifications as necessary. For more details regarding further plans, please refer to the orders. COPD: Obstr Chronic Bronchitis Plan Plan For more details regarding further plans, please refer to the orders. TOM FOSTER MD 01/30/17 0947: IM PROGRESS NOTES- Assessment Assessment The patient was seen and examined by me. Chart reviewed and plan of care formulated. Discussed with, reviewed and agree with SERVICE PROVIDER's notes, plan of care and orders with modifications as necessary. For more details regarding further plans, please refer to the orders. NEVA LOONEY APRN Jan 30, 2017 08:40 TOM FOSTER MD Jan 30, 2017 09:47
[2017-01-30] MEDS ORDERED: MULT1TAB90 PO (08:45)
[2017-01-30] MEDS ORDERED: METO50TA10 PO (08:45)
[2017-01-30] MEDS ORDERED: AMOX1TAB10 PO (08:45)
[2017-01-30] MEDS ORDERED: APIX2.5T PO (08:45)
[2017-01-30] MEDS ORDERED: MONT10TA9 PO (08:45)
[2017-01-30] MEDS ORDERED: ACET325T9 PO (08:45)
--- NOTE | 2017-01-30 08:51 | RAD ---
Chest, 2 views, 01/30/2017: History: Post pacemaker insertion Comparison is made to yesterday's study. A left-sided transvenous pacemaker remains in place with one lead extending into the anterolateral inferior aspect of the right ventricle, a second lead projected over the superior aspect of the right atrium and the tip of the third lead overlying the left lateral aspect of the heart. Sternal wires are again noted. A right jugular dialysis type catheter extends into the right atrium. The heart is mildly enlarged. Mild pulmonary infiltrates appear to have improved with better definition of the pulmonary vascularity. There are small pleural effusions, right greater than left. There is no evidence of pneumothorax. IMPRESSION: 1. Resolving mild pulmonary infiltrates. 2. Small bilateral pleural effusions, right greater than left.
[2017-01-30] MEDS: AMOXICILLIN/K CLAV 500/125MG TABLET. PO SCH ×2 (10:18→20:20)
[2017-01-30] MEDS: OMEGA-3 FATTY ACIDS/FISH OIL 1,000 MG CAPSULE. PO SCH (10:18)
[2017-01-30] MEDS: MULTIVITAMIN with MINERAL TABLET. PO SCH (10:18)
[2017-01-30] MEDS: ASPIRIN CHEWABLE 81 MG TABLET. PO SCH (10:19)
[2017-01-30] MEDS: LINEZOLID 600 MG TABLET PO SCH ×2 (10:20→20:19)
[2017-01-30] MEDS: METOPROLOL SUCC 24HR ER 50 MG TAB.ER.24H. PO SCH (10:20)
[2017-01-30] MEDS: FUROSEMIDE 40 MG TABLET. PO SCH (10:20)
[2017-01-30] MEDS: POTASSIUM CHLORIDE 20 MEQ TABLET.ER. PO SCH (10:21)
[2017-01-30 10:26] VITALS: BP 140/58
--- NOTE | 2017-01-30 12:47 | PDOC ---
Provider Note Provider Note D/W Dr. Rangel. Pt. is nown off dobutamine. Dr. Claire orellana he may have to be back on it to improve cardiac output and thus renal function. We may have to do it more often than once a month. SSwould be approptiate to follow renal function and resume dopamine as and when necessary until we determine his needs. MELINDA FORTUNE MD Jan 30, 2017 12:47
--- NOTE | 2017-01-30 14:36 | PDOC ---
PULMONARY PROGRESS NOTES Subjective less soa s/p thoracentesis Vitals Vital Signs Date Time Temp Pulse Resp B/P (MAP) Pulse Ox O2 Delivery O2 Flow Rate FiO2 01/30/17 10:26 97.5 64 18 140/58 (85) 97 Nasal Cannula 2.0 97.5 General: Alert, No acute distress Lungs: Other (decrease bs Right base) Cardiovascular: S1 Abdomen: Soft Neuro Exam: Alert Extremities: Other (2+edema) Labs Laboratory Tests Test 01/28/17 16:56 01/28/17 20:52 01/29/17 05:00 01/29/17 06:00 Glucose (Fingerstick) 161 mg/dL (70-99) 197 mg/dL (70-99) White Blood Count 8.0 x10^3/uL (4.0-11.0) Red Blood Count 3.26 x10^6/uL (4.30-5.70) Hemoglobin 8.5 g/dL (13.0-17.5) Hematocrit 25.8 % (39.0-53.0) Mean Corpuscular Volume 79 fL (79-100) Mean Corpuscular Hemoglobin 26 pg (25-35) Mean Corpuscular Hemoglobin Concent 33 g/dL (31-37) Red Cell Distribution Width 19.3 % (11.5-14.5) Platelet Count 151 x10^3/uL (140-400) Neutrophils (%) (Auto) 82 % (31-73) Lymphocytes (%) (Auto) 11 % (24-48) Monocytes (%) (Auto) 4 % (0-9) Eosinophils (%) (Auto) 3 % (0-3) Basophils (%) (Auto) 0 % (0-3) Neutrophils # (Auto) 6.6 x10^3uL (1.8-7.7) Lymphocytes # (Auto) 0.9 x10^3/uL (1.0-4.8) Monocytes # (Auto) 0.3 x10^3/uL (0.0-1.1) Eosinophils # (Auto) 0.2 x10^3/uL (0.0-0.7) Basophils # (Auto) 0.0 x10^3/uL (0.0-0.2) Sodium Level 141 mmol/L (136-145) Potassium Level 3.6 mmol/L (3.5-5.1) Chloride Level 104 mmol/L (98-107) Carbon Dioxide Level 31 mmol/L (21-32) Anion Gap 6 (6-14) Blood Urea Nitrogen 23 mg/dL (8-26) Creatinine 1.9 mg/dL (0.7-1.3) Estimated GFR (Cockcroft-Gault) 34.3 Glucose Level 117 mg/dL (70-99) Calcium Level 7.7 mg/dL (8.5-10.1) Magnesium Level 1.7 mg/dL (1.8-2.4) Test 01/29/17 07:33 01/29/17 11:27 01/29/17 18:00 01/29/17 20:34 Glucose (Fingerstick) 115 mg/dL (70-99) 108 mg/dL (70-99) 140 mg/dL (70-99) 219 mg/dL (70-99) Test 01/30/17 04:00 01/30/17 07:43 01/30/17 11:52 White Blood Count 9.1 x10^3/uL (4.0-11.0) Red Blood Count 3.43 x10^6/uL (4.30-5.70) Hemoglobin 8.9 g/dL (13.0-17.5) Hematocrit 27.4 % (39.0-53.0) Mean Corpuscular Volume 80 fL (79-100) Mean Corpuscular Hemoglobin 26 pg (25-35) Mean Corpuscular Hemoglobin Concent 33 g/dL (31-37) Red Cell Distribution Width 19.6 % (11.5-14.5) Platelet Count 143 x10^3/uL (140-400) Neutrophils (%) (Auto) 87 % (31-73) Lymphocytes (%) (Auto) 7 % (24-48) Monocytes (%) (Auto) 4 % (0-9) Eosinophils (%) (Auto) 2 % (0-3) Basophils (%) (Auto) 0 % (0-3) Neutrophils # (Auto) 7.9 x10^3uL (1.8-7.7) Lymphocytes # (Auto) 0.6 x10^3/uL (1.0-4.8) Monocytes # (Auto) 0.4 x10^3/uL (0.0-1.1) Eosinophils # (Auto) 0.2 x10^3/uL (0.0-0.7) Basophils # (Auto) 0.0 x10^3/uL (0.0-0.2) Sodium Level 140 mmol/L (136-145) Potassium Level 3.8 mmol/L (3.5-5.1) Chloride Level 102 mmol/L (98-107) Carbon Dioxide Level 31 mmol/L (21-32) Anion Gap 7 (6-14) Blood Urea Nitrogen 22 mg/dL (8-26) Creatinine 1.8 mg/dL (0.7-1.3) Estimated GFR (Cockcroft-Gault) 36.5 Glucose Level 172 mg/dL (70-99) Calcium Level 8.4 mg/dL (8.5-10.1) Magnesium Level 2.0 mg/dL (1.8-2.4) Glucose (Fingerstick) 106 mg/dL (70-99) 164 mg/dL (70-99) Laboratory Tests Test 01/29/17 18:00 01/29/17 20:34 01/30/17 04:00 01/30/17 07:43 Glucose (Fingerstick) 140 mg/dL (70-99) 219 mg/dL (70-99) 106 mg/dL (70-99) White Blood Count 9.1 x10^3/uL (4.0-11.0) Red Blood Count 3.43 x10^6/uL (4.30-5.70) Hemoglobin 8.9 g/dL (13.0-17.5) Hematocrit 27.4 % (39.0-53.0) Mean Corpuscular Volume 80 fL (79-100) Mean Corpuscular Hemoglobin 26 pg (25-35) Mean Corpuscular Hemoglobin Concent 33 g/dL (31-37) Red Cell Distribution Width 19.6 % (11.5-14.5) Platelet Count 143 x10^3/uL (140-400) Neutrophils (%) (Auto) 87 % (31-73) Lymphocytes (%) (Auto) 7 % (24-48) Monocytes (%) (Auto) 4 % (0-9) Eosinophils (%) (Auto) 2 % (0-3) Basophils (%) (Auto) 0 % (0-3) Neutrophils # (Auto) 7.9 x10^3uL (1.8-7.7) Lymphocytes # (Auto) 0.6 x10^3/uL (1.0-4.8) Monocytes # (Auto) 0.4 x10^3/uL (0.0-1.1) Eosinophils # (Auto) 0.2 x10^3/uL (0.0-0.7) Basophils # (Auto) 0.0 x10^3/uL (0.0-0.2) Sodium Level 140 mmol/L (136-145) Potassium Level 3.8 mmol/L (3.5-5.1) Chloride Level 102 mmol/L (98-107) Carbon Dioxide Level 31 mmol/L (21-32) Anion Gap 7 (6-14) Blood Urea Nitrogen 22 mg/dL (8-26) Creatinine 1.8 mg/dL (0.7-1.3) Estimated GFR (Cockcroft-Gault) 36.5 Glucose Level 172 mg/dL (70-99) Calcium Level 8.4 mg/dL (8.5-10.1) Magnesium Level 2.0 mg/dL (1.8-2.4) Test 01/30/17 11:52 Glucose (Fingerstick) 164 mg/dL (70-99) Medications Active Scripts Medications Dose Route/Sig Max Daily Dose Days Date Category Metolazone 2.5 Mg Tablet 2.5 Mg PO SATURDAY -SATURDAY PRN 01/23/17 Reported Entresto 24 mg-26 mg Tablet (Sacubitril/Valsartan) 1 Each Tablet 1 Each PO BID 01/23/17 Reported Aspir 81 (Aspirin) 81 Mg Tablet.dr 81 Mg PO 01/23/17 Reported Mag-Oxide (Magnesium Oxide) 400 Mg Tablet 1 Tab PO BID 01/23/17 Reported NITROGLYCERIN SubLingual (Nitroglycerin) 0.4 Mg Tab.subl 0.4 Mg SL PRN Q5MIN PRN 01/23/17 Reported Metoprolol Succinate ( Xl ) (Metoprolol Succinate) 25 Mg Tab.er.24h 50 Mg PO DAILY 01/23/17 Reported Eliquis (Apixaban) 5 Mg Tablet 5 Mg PO BID 01/23/17 Reported Amiodarone Hcl 200 Mg Tablet 200 Mg PO TID 04/24/16 Rx Savaysa (Edoxaban Tosylate) 60 Mg Tablet 60 Mg PO QHS 04/21/16 Reported [place]-3 Fish Oil 1,000 Mg Sfgl ([place]-3/Dha/Epa/Fish Oil) 1,000 Mg Capsule 1,000 Mg PO DAILY 10/31/15 Reported Metformin Hcl 850 Mg Tablet 850 Mg PO BIDWMEALS 10/31/15 Reported Plavix (Clopidogrel Bisulfate) 75 Mg Tablet 75 Mg PO DAILY 10/31/15 Reported Crestor (Rosuvastatin Calcium) 20 Mg Tablet 20 Mg PO HS 05/29/14 Reported Losartan Potassium 25 Mg Tablet 50 Mg PO DAILY 05/29/14 Reported Furosemide 40 Mg Tablet 40 Mg PO DAILY 05/29/14 Reported Potassium Chloride 20 Meq Tab.er.prt 20 Meq PO DAILY 05/29/14 Reported Impression . 1. Acute hypoxic respiratory failure secondary to acute on chronic systolic heart failure and moderate-sized right pleural effusion. 2. 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 3. No significant history of tobacco use. 4. Acute on chronic renal failure. Suspect secondary to poor cardiac pump function. 5. Doubt Pneumonia/ ct chest with large effusion, no consolidation Plan . 1. s/p thoracentesis . re-started on Eliquis and Plavix, transudate 2. Follow Cardiology recommendations. 3. Follow renal recommendations. dialysis 4. PO antibiotics. ok with dc in BABATUNDE Rivas MD Jan 30, 2017 14:36
[2017-01-30 15:00] VITALS: BP 125/70
--- NOTE | 2017-01-30 15:04 | PDOC ---
SUBJECTIVE ROS WILNER/ CKD III doing and feeling better, Now s/p BiV CVS: no Orthopnea, no CP RESP: no SOB, no ADAIR GI: no Nausea, no Vomiting : no Dysuria, no Urgency OBJECTIVE Vital Signs Vital Signs Date Time Temp Pulse Resp B/P (MAP) Pulse Ox O2 Delivery O2 Flow Rate FiO2 01/30/17 10:26 97.5 64 18 140/58 (85) 97 Nasal Cannula 2.0 97.5 I & 0 Intake and Output 01/30/17 07:00 Intake Total 770 ml Output Total 500 ml Balance 270 ml Intake Oral 490 ml IV Total 200 ml Blood Product IV Normal Saline Flush 80 ml Output Urine Total 500 ml # Voids 1 PHYSICAL EXAM Physical Exam GEN: Awake, Oriented x 3, In no distress EYES: Vision Unchanged, Conjunctiva Normal EN: No EN Drainage, Mucous Membranes moist NECK: no JVD, min JVP, Supple, no Thyromegaly CVS: S1S2, soft Murmur, No Gallop, No Rub,no Edema RESP: rajendra basal Rales, no Rhonchi,no Acc. Muscle Use GI: BS + ve, NO Bruit, Non Tender, Non Distended : no CVA tenderness, no Suprapubic Tenderness DIAGNOSIS/ASSESSMENT Assessment & Plan ARF: Creat is much better with Ionotropes currently. dobutamine was stopped yest pm so Will reval creat and UO in am after 24-36 hrs off of Ionotropes. Current fluid and E-lyte status does not necessitate emergent need for dialysis. Will re-evaluate for dialysis in the am - D/c pt and HD Cath on saturday if no significant worsening of BUN/creat CKD III/ Iv at baseline is supected. ANEMIA: Aranesp as ordered, Transfuse with next HD as needed HTN: Current BP meds as reviewed. See orders for changes. SEVERE CM WITH EF 10-15% with CAD - BiV AICD placed. OP Ionotropes regimen as discussed with Dr Barraza. COMMENT/RELEVANT DATA Meds Current Medications Medications (Trade) Dose Ordered Sig/Carter Start Time Stop Time Status Last Admin Dose Admin Acetaminophen (Tylenol) 500 mg 1X PRN PRN 01/26/17 15:45 01/27/17 15:44 DC Albumin Human 200 ml @ 200 mls/hr 1X PRN PRN 01/26/17 15:45 01/26/17 21:44 DC Amoxicillin/ Clavulanate Potassium (Augmentin 500/ 125mg) 1 tab BID 01/30/17 09:00 01/30/17 10:18 1 TAB Apixaban (Eliquis) 2.5 mg BID 01/30/17 21:00 Aspirin (Children'S Aspirin) 81 mg DAILYWBKFT 01/30/17 08:00 01/30/17 10:19 81 MG Aspirin (Ecotrin) 81 mg DAILYWBKFT 01/23/17 12:30 01/23/17 20:26 DC Atorvastatin Calcium (Lipitor) 40 mg QHS 01/24/17 21:00 01/29/17 21:53 40 MG Azithromycin (Zithromax) 250 mg DAILY 01/24/17 15:45 01/28/17 15:34 DC 01/27/17 08:23 250 MG Bacitracin 12197 unit/Sodium Chloride 250 ml @ 250 mls/hr 1X ONCE 01/29/17 15:30 01/29/17 16:29 DC 01/29/17 15:30 250 MLS/HR Cefazolin Sodium 1 gm/Sodium Chloride 50 ml @ 100 mls/hr 1X ONCE 01/29/17 23:00 01/29/17 23:29 DC 01/29/17 23:10 100 MLS/HR Clopidogrel Bisulfate (Plavix) 75 mg DAILYWBKFT 01/24/17 08:00 UNV Darbepoetin Seven (Aranesp) 60 mcg WEEKLYHS 01/29/17 21:00 01/29/17 21:52 60 MCG Diphenhydramine HCl (Benadryl) 25 mg 1X PRN PRN 01/26/17 15:45 01/27/17 15:44 DC Dobutamine HCl/ Dextrose 250 ml @ 10.5 mls/hr CONT PRN 01/24/17 12:30 01/29/17 20:08 DC 01/29/17 14:38 10.5 MLS/HR Fentanyl Citrate (Fentanyl 2ml Vial) 100 mcg STK-MED ONCE 01/29/17 15:39 01/29/17 15:40 DC Fish Oil (Fish Oil) 1,000 mg DAILY 01/23/17 12:30 01/30/17 10:18 1,000 MG Furosemide (Lasix) 40 mg DAILY 01/26/17 11:30 01/30/17 10:20 40 MG Heparin Sodium (Porcine) (Heparin Sodium) 2,600 unit 1X ONCE 01/24/17 13:45 01/24/17 13:46 DC 01/24/17 13:46 2,500 UNIT Heparin Sodium/ Sodium Chloride 1,000 unit 1X ONCE 01/24/17 13:45 01/24/17 13:46 DC Info (Anti-Coagulation Monitoring By Pharmacy) 1 each PRN DAILY PRN 01/30/17 08:00 01/30/17 08:36 1 EACH Info (PHARMACY MONITORING -- do not chart) 1 each PRN DAILY PRN 01/26/17 15:45 Insulin Aspart (NovoLOG) 10 units ONCE ONCE 01/28/17 18:30 01/28/17 18:31 Cancel Iohexol (Omnipaque 300 Mg/ml) 100 ml STK-MED ONCE 01/29/17 16:04 01/29/17 16:05 DC Lidocaine/ Epinephrine (Xylocaine 2%-Epi 1:100,000) 20 ml STK-MED ONCE 01/29/17 15:59 01/29/17 16:00 DC Lidocaine/Sodium Bicarbonate (Buffered Lidocaine 1%) 20 ml 1X ONCE 01/28/17 10:00 01/28/17 10:01 DC 01/28/17 10:24 2 ML Linezolid (Zyvox) 600 mg BID 01/23/17 18:30 01/30/17 10:20 600 MG Magnesium Hydroxide (Milk Of Magnesia) 2,400 mg PRN Q12HR PRN 01/23/17 11:30 Magnesium Oxide (Magnesium Oxide) 400 mg BID 01/23/17 21:00 01/24/17 08:19 DC 01/23/17 21:00 400 MG Magnesium Sulfate/ Dextrose 100 ml @ 100 mls/hr 1X ONCE 01/29/17 11:00 01/29/17 11:59 DC 01/29/17 14:38 100 MLS/HR Metoprolol Succinate (Toprol Xl) 50 mg DAILY 01/23/17 12:30 01/30/17 10:20 50 MG Midazolam HCl (Versed) 2 mg STK-MED ONCE 01/29/17 15:39 01/29/17 15:40 DC Montelukast Sodium (Singulair) 10 mg QHS 01/23/17 21:00 01/29/17 21:53 10 MG Multivitamins (Thera M Plus) 1 tab DAILY 01/23/17 12:30 01/30/17 10:18 1 TAB Nitroglycerin (Nitrostat) 0.4 mg PRN Q5MIN PRN 01/23/17 11:45 Oxymetazoline HCl (Afrin) 3 spray PRN 1X PRN 01/26/17 09:45 01/30/17 08:48 DC Piperacillin Sod/ Tazobactam Sod 2.25 gm/Sodium Chloride 50 ml @ 100 mls/hr Q8HRS 01/23/17 18:00 01/30/17 08:08 DC 01/30/17 05:28 100 MLS/HR Potassium Chloride (Klor-Con) 40 meq DAILY 01/28/17 16:00 01/30/17 10:21 40 MEQ Sacubitril/ Valsartan (Entresto 24 Mg-26 Mg) 1 tab BID 01/23/17 21:00 UNV Sodium Chloride 1,000 ml @ 400 mls/hr Q2H30M PRN 01/26/17 15:42 01/27/17 03:41 DC Sodium Chloride (Normal Saline Flush) 10 ml 1X PRN PRN 01/26/17 15:45 01/27/17 15:44 DC Lab Laboratory Tests Test 01/29/17 18:00 01/29/17 20:34 01/30/17 04:00 01/30/17 07:43 Glucose (Fingerstick) 140 mg/dL (70-99) 219 mg/dL (70-99) 106 mg/dL (70-99) White Blood Count 9.1 x10^3/uL (4.0-11.0) Red Blood Count 3.43 x10^6/uL (4.30-5.70) Hemoglobin 8.9 g/dL (13.0-17.5) Hematocrit 27.4 % (39.0-53.0) Mean Corpuscular Volume 80 fL (79-100) Mean Corpuscular Hemoglobin 26 pg (25-35) Mean Corpuscular Hemoglobin Concent 33 g/dL (31-37) Red Cell Distribution Width 19.6 % (11.5-14.5) Platelet Count 143 x10^3/uL (140-400) Neutrophils (%) (Auto) 87 % (31-73) Lymphocytes (%) (Auto) 7 % (24-48) Monocytes (%) (Auto) 4 % (0-9) Eosinophils (%) (Auto) 2 % (0-3) Basophils (%) (Auto) 0 % (0-3) Neutrophils # (Auto) 7.9 x10^3uL (1.8-7.7) Lymphocytes # (Auto) 0.6 x10^3/uL (1.0-4.8) Monocytes # (Auto) 0.4 x10^3/uL (0.0-1.1) Eosinophils # (Auto) 0.2 x10^3/uL (0.0-0.7) Basophils # (Auto) 0.0 x10^3/uL (0.0-0.2) Sodium Level 140 mmol/L (136-145) Potassium Level 3.8 mmol/L (3.5-5.1) Chloride Level 102 mmol/L (98-107) Carbon Dioxide Level 31 mmol/L (21-32) Anion Gap 7 (6-14) Blood Urea Nitrogen 22 mg/dL (8-26) Creatinine 1.8 mg/dL (0.7-1.3) Estimated GFR (Cockcroft-Gault) 36.5 Glucose Level 172 mg/dL (70-99) Calcium Level 8.4 mg/dL (8.5-10.1) Magnesium Level 2.0 mg/dL (1.8-2.4) Test 01/30/17 11:52 Glucose (Fingerstick) 164 mg/dL (70-99) TIMOTHY CONROY MD Jan 30, 2017 15:04
[2017-01-30 19:55] VITALS: BP 123/76
--- NOTE | 2017-01-30 19:59 | PDOC ---
Provider Note Provider Note Continues to feel well. No shortness of breath. No orthopnea. He walked own the [place] without oxygen but became hypoxic and needed to have his oxygen placed C towards the end.. Lungs show bi-basilar rales and rhonchi. Heart shows a grade 2/6 pansystolic murmur at the apex but no S3 or S4. Oedema of legs has significantly improved. Says he has been urinating. Creatinine is now 1.8 after receiving about 20 mL of iodine yesterday. Echocardiogram showed a significant improvement of the stroke volume from 17 mL to 80 mL after a course of dobutamine. Dr. Rangel I would like him to have the dobutamine more often depending on what his creatinine is. Discussed with his patient and his daughter. [facility] is being [facility] and we await their decision. MELINDA FORTUNE MD Jan 30, 2017 19:59
[2017-01-30] MEDS: MONTELUKAST SODIUM 10 MG TABLET. PO SCH (20:20)
[2017-01-30] MEDS: ATORVASTATIN CALCIUM 40 MG TABLET. PO SCH (20:20)
[2017-01-30] MEDS: APIXABAN 2.5 MG TABLET. PO SCH (20:20)
[2017-01-30 22:45] VITALS: BP 125/81
[2017-01-31 03:02] VITALS: BP 128/60
[2017-01-31 06:16] LABS: BASO # 0.1 x10^3/uL (0.0-0.2); BASO % 1 % (0-3); EOS % 3 % (0-3); HEMATOCRIT 27.9 % (39.0-53.0); HEMOGLOBIN 8.8 g/dL (13.0-17.5); LYMPH # 1.1 x10^3/uL (1.0-4.8); LYMPH % 13 % (24-48); MEAN CORPUSCULAR HEMOGLOBIN 26 pg (25-35); MEAN CORPUSCULAR HGB CONC 32 g/dL (31-37); MEAN CORPUSCULAR VOLUME 82 fL (79-100); MONO % 4 % (0-9); NEUT % 79 % (31-73); PLATELET COUNT 123 x10^3/uL (140-400); RED BLOOD COUNT 3.39 x10^6/uL (4.30-5.70); WHITE BLOOD COUNT 8.7 x10^3/uL (4.0-11.0)
[2017-01-31 06:22] LABS: CALCIUM 8.4 mg/dL (8.5-10.1); CREATININE 1.7 mg/dL (0.7-1.3); MAGNESIUM 1.8 mg/dL (1.8-2.4)
[2017-01-31 07:00] VITALS: BP 125/67
[2017-01-31] MEDS: INSULIN ASPART 300 UNITS/3 ML INSULN.PEN SQ SCH ×2 (07:30→11:30)
--- NOTE | 2017-01-31 08:10 | PDOC ---
Infectious Disease Note Subjective Subjective Comfortable, denies pain, SOA Better since admit ROS ROS GEN: Denies fevers, chills, sweats HEENT: Denies blurred vision, sore throat CV: Denies chest pain RESP: Denies shortness of air, cough GI: Denies n/v/d NEURO: Denies confusion, dizziness MSK: Denies weakness, joint pain/swelling Vital Sign Vital Signs Vital Signs Date Time Temp Pulse Resp B/P (MAP) Pulse Ox O2 Delivery O2 Flow Rate FiO2 01/31/17 03:02 97.7 66 20 128/60 (82) 96 Nasal Cannula 2.0 97.7 Physical Exam PHYSICAL EXAM GENERAL: Propped up in bed, relaxed appearance HEENT: Oral mucosa pink, normal conj NECK: Supple. LUNGS: Diminished aeration right lower lung leon. Nonlabored. HEART: Normal S1 and S2. Left-sided AICD/sling ABDOMEN: Bowel sounds are present, soft, nontender. EXTREMITIES: Bilateral lower extremity edema. No cyanosis. SKIN: Without rash. Warm to touch. NEUROLOGIC: Awake and oriented x 3. No focal deficits appreciated. RUE-PICC. clean RIJ/temp HDC (01/24). clean Labs Lab Laboratory Tests Test 01/30/17 11:52 01/30/17 17:31 01/30/17 20:10 01/31/17 06:05 Glucose (Fingerstick) 164 mg/dL (70-99) 132 mg/dL (70-99) 143 mg/dL (70-99) White Blood Count 8.7 x10^3/uL (4.0-11.0) Red Blood Count 3.39 x10^6/uL (4.30-5.70) Hemoglobin 8.8 g/dL (13.0-17.5) Hematocrit 27.9 % (39.0-53.0) Mean Corpuscular Volume 82 fL (79-100) Mean Corpuscular Hemoglobin 26 pg (25-35) Mean Corpuscular Hemoglobin Concent 32 g/dL (31-37) Red Cell Distribution Width 20.0 % (11.5-14.5) Platelet Count 123 x10^3/uL (140-400) Neutrophils (%) (Auto) 79 % (31-73) Lymphocytes (%) (Auto) 13 % (24-48) Monocytes (%) (Auto) 4 % (0-9) Eosinophils (%) (Auto) 3 % (0-3) Basophils (%) (Auto) 1 % (0-3) Neutrophils # (Auto) 6.9 x10^3uL (1.8-7.7) Lymphocytes # (Auto) 1.1 x10^3/uL (1.0-4.8) Monocytes # (Auto) 0.3 x10^3/uL (0.0-1.1) Eosinophils # (Auto) 0.3 x10^3/uL (0.0-0.7) Basophils # (Auto) 0.1 x10^3/uL (0.0-0.2) Sodium Level 141 mmol/L (136-145) Potassium Level 4.0 mmol/L (3.5-5.1) Chloride Level 103 mmol/L (98-107) Carbon Dioxide Level 30 mmol/L (21-32) Anion Gap 8 (6-14) Blood Urea Nitrogen 23 mg/dL (8-26) Creatinine 1.7 mg/dL (0.7-1.3) Estimated GFR (Cockcroft-Gault) 39.0 Glucose Level 121 mg/dL (70-99) Calcium Level 8.4 mg/dL (8.5-10.1) Magnesium Level 1.8 mg/dL (1.8-2.4) Test 01/31/17 07:46 Glucose (Fingerstick) 112 mg/dL (70-99) Objective Assessment Leukocytosis - resolved Right pleural effusion s/p thoracentesis 01/28 1400 ml. cults neg Acute on chronic CHF WILNER on CKD. Now on HD Severe cardiomyopathy w/EF 10-15% s/p pacemaker 01/29 DM II Plan Plan of Care Discont Zyvox (01/23) Cont augmentin until 02/06 Monitor labs and cultures Supportive care CLINTON ABRAHAM MD Jan 31, 2017 08:10
--- NOTE | 2017-01-31 08:30 | PDOC ---
SUBJECTIVE ROS WILNER/ ? CKD III Doign and feeling much better today CVS: no Orthopnea, no CP RESP: no SOB, min ADAIR GI: no Nausea, no Vomiting : no Dysuria, no Urgency OBJECTIVE Vital Signs Vital Signs Date Time Temp Pulse Resp B/P (MAP) Pulse Ox O2 Delivery O2 Flow Rate FiO2 01/31/17 07:00 97.7 61 18 125/67 (86) 97 Nasal Cannula 2.0 97.7 I & 0 Intake and Output 01/31/17 07:00 Intake Total 980 ml Balance 980 ml Intake Oral 980 ml # Voids 2 # Bowel Movements 2 PHYSICAL EXAM Physical Exam GEN: Awake, Oriented x 3, In no distress EYES: Vision Unchanged, Conjunctiva Normal EN: No EN Drainage, Mucous Membranes moist NECK: no JVD, min JVP, Supple, no Thyromegaly CVS: S1S2, soft Murmur, No Gallop, No Rub,no Edema RESP: rare rajendra basal Rales, no Rhonchi,no Acc. Muscle Use GI: BS + ve, NO Bruit, Non Tender, Non Distended : no CVA tenderness, no Suprapubic Tenderness DIAGNOSIS/ASSESSMENT Assessment & Plan ARF: Creat is much better. Uo is acceptable for now. Current fluid and E- lyte status does not necessitate emergent need for dialysis. D/c HD Cath CKD III at baseline is supected. Fe def ANEMIA: IV Fe and Aranesp as ordered, Transfuse with next HD as needed HTN: Current BP meds as reviewed. See orders for changes. SEVERE CM WITH EF 10-15% with CAD now s/p BiV AICD placed and documented improvement in SV by ECHO asnoted in Dr Hurtado note. OP Ionotropes regimen as discussed with Dr Barraza for now until EF improves adequately to maintain Renal perfusion. Min SOB and ADAIR - small dose of IV lasix tyoday and ct PO lasix OK to D/c from Renal standpoint COMMENT/RELEVANT DATA Meds Current Medications Medications (Trade) Dose Ordered Sig/Carter Start Time Stop Time Status Last Admin Dose Admin Acetaminophen (Tylenol) 500 mg 1X PRN PRN 01/26/17 15:45 01/27/17 15:44 DC Albumin Human 200 ml @ 200 mls/hr 1X PRN PRN 01/26/17 15:45 8/12/17 21:44 DC Amoxicillin/ Clavulanate Potassium (Augmentin 500/ 125mg) 1 tab BID 01/30/17 09:00 01/30/17 20:20 1 TAB Apixaban (Eliquis) 2.5 mg BID 01/30/17 21:00 01/30/17 20:20 2.5 MG Aspirin (Children'S Aspirin) 81 mg DAILYWBKFT 01/30/17 08:00 01/30/17 10:19 81 MG Aspirin (Ecotrin) 81 mg DAILYWBKFT 01/23/17 12:30 01/23/17 20:26 DC Atorvastatin Calcium (Lipitor) 40 mg QHS 01/24/17 21:00 01/30/17 20:20 40 MG Azithromycin (Zithromax) 250 mg DAILY 01/24/17 15:45 01/28/17 15:34 DC 01/27/17 08:23 250 MG Bacitracin 65008 unit/Sodium Chloride 250 ml @ 250 mls/hr 1X ONCE 01/29/17 15:30 01/29/17 16:29 DC 01/29/17 15:30 250 MLS/HR Cefazolin Sodium 1 gm/Sodium Chloride 50 ml @ 100 mls/hr 1X ONCE 01/29/17 23:00 01/29/17 23:29 DC 01/29/17 23:10 100 MLS/HR Clopidogrel Bisulfate (Plavix) 75 mg DAILYWBKFT 01/24/17 08:00 UNV Darbepoetin Seven (Aranesp) 60 mcg WEEKLYHS 01/29/17 21:00 01/29/17 21:52 60 MCG Diphenhydramine HCl (Benadryl) 25 mg 1X PRN PRN 01/26/17 15:45 01/27/17 15:44 DC Dobutamine HCl/ Dextrose 250 ml @ 10.5 mls/hr CONT PRN 01/24/17 12:30 01/29/17 20:08 DC 01/29/17 14:38 10.5 MLS/HR Fentanyl Citrate (Fentanyl 2ml Vial) 100 mcg STK-MED ONCE 01/29/17 15:39 01/29/17 15:40 DC Fish Oil (Fish Oil) 1,000 mg DAILY 01/23/17 12:30 01/30/17 10:18 1,000 MG Furosemide (Lasix) 40 mg DAILY 01/26/17 11:30 01/30/17 10:20 40 MG Heparin Sodium (Porcine) (Heparin Sodium) 2,600 unit 1X ONCE 01/24/17 13:45 01/24/17 13:46 DC 01/24/17 13:46 2,500 UNIT Heparin Sodium/ Sodium Chloride 1,000 unit 1X ONCE 01/24/17 13:45 01/24/17 13:46 DC Info (Anti-Coagulation Monitoring By Pharmacy) 1 each PRN DAILY PRN 01/30/17 08:00 01/30/17 08:36 1 EACH Info (PHARMACY MONITORING -- do not chart) 1 each PRN DAILY PRN 01/26/17 15:45 Insulin Aspart (NovoLOG) 10 units ONCE ONCE 01/28/17 18:30 01/28/17 18:31 Cancel Iohexol (Omnipaque 300 Mg/ml) 100 ml STK-MED ONCE 01/29/17 16:04 01/29/17 16:05 DC Lidocaine/ Epinephrine (Xylocaine 2%-Epi 1:100,000) 20 ml STK-MED ONCE 01/29/17 15:59 01/29/17 16:00 DC Lidocaine/Sodium Bicarbonate (Buffered Lidocaine 1%) 20 ml 1X ONCE 01/28/17 10:00 01/28/17 10:01 DC 01/28/17 10:24 2 ML Linezolid (Zyvox) 600 mg BID 01/23/17 18:30 01/31/17 08:10 DC 01/30/17 20:19 600 MG Magnesium Hydroxide (Milk Of Magnesia) 2,400 mg PRN Q12HR PRN 01/23/17 11:30 Magnesium Oxide (Magnesium Oxide) 400 mg BID 01/23/17 21:00 01/24/17 08:19 DC 01/23/17 21:00 400 MG Magnesium Sulfate/ Dextrose 100 ml @ 100 mls/hr 1X ONCE 01/29/17 11:00 01/29/17 11:59 DC 01/29/17 14:38 100 MLS/HR Metoprolol Succinate (Toprol Xl) 50 mg DAILY 01/23/17 12:30 01/30/17 10:20 50 MG Midazolam HCl (Versed) 2 mg STK-MED ONCE 01/29/17 15:39 01/29/17 15:40 DC Montelukast Sodium (Singulair) 10 mg QHS 01/23/17 21:00 01/30/17 20:20 10 MG Multivitamins (Thera M Plus) 1 tab DAILY 01/23/17 12:30 01/30/17 10:18 1 TAB Nitroglycerin (Nitrostat) 0.4 mg PRN Q5MIN PRN 01/23/17 11:45 Oxymetazoline HCl (Afrin) 3 spray PRN 1X PRN 01/26/17 09:45 01/30/17 08:48 DC Piperacillin Sod/ Tazobactam Sod 2.25 gm/Sodium Chloride 50 ml @ 100 mls/hr Q8HRS 01/23/17 18:00 01/30/17 08:08 DC 01/30/17 05:28 100 MLS/HR Potassium Chloride (Klor-Con) 40 meq DAILY 01/28/17 16:00 01/30/17 10:21 40 MEQ Sacubitril/ Valsartan (Entresto 24 Mg-26 Mg) 1 tab BID 01/23/17 21:00 UNV Sodium Chloride 1,000 ml @ 400 mls/hr Q2H30M PRN 01/26/17 15:42 01/27/17 03:41 DC Sodium Chloride (Normal Saline Flush) 10 ml 1X PRN PRN 01/26/17 15:45 01/27/17 15:44 DC Lab Laboratory Tests Test 01/30/17 11:52 01/30/17 17:31 01/30/17 20:10 01/31/17 06:05 Glucose (Fingerstick) 164 mg/dL (70-99) 132 mg/dL (70-99) 143 mg/dL (70-99) White Blood Count 8.7 x10^3/uL (4.0-11.0) Red Blood Count 3.39 x10^6/uL (4.30-5.70) Hemoglobin 8.8 g/dL (13.0-17.5) Hematocrit 27.9 % (39.0-53.0) Mean Corpuscular Volume 82 fL (79-100) Mean Corpuscular Hemoglobin 26 pg (25-35) Mean Corpuscular Hemoglobin Concent 32 g/dL (31-37) Red Cell Distribution Width 20.0 % (11.5-14.5) Platelet Count 123 x10^3/uL (140-400) Neutrophils (%) (Auto) 79 % (31-73) Lymphocytes (%) (Auto) 13 % (24-48) Monocytes (%) (Auto) 4 % (0-9) Eosinophils (%) (Auto) 3 % (0-3) Basophils (%) (Auto) 1 % (0-3) Neutrophils # (Auto) 6.9 x10^3uL (1.8-7.7) Lymphocytes # (Auto) 1.1 x10^3/uL (1.0-4.8) Monocytes # (Auto) 0.3 x10^3/uL (0.0-1.1) Eosinophils # (Auto) 0.3 x10^3/uL (0.0-0.7) Basophils # (Auto) 0.1 x10^3/uL (0.0-0.2) Sodium Level 141 mmol/L (136-145) Potassium Level 4.0 mmol/L (3.5-5.1) Chloride Level 103 mmol/L (98-107) Carbon Dioxide Level 30 mmol/L (21-32) Anion Gap 8 (6-14) Blood Urea Nitrogen 23 mg/dL (8-26) Creatinine 1.7 mg/dL (0.7-1.3) Estimated GFR (Cockcroft-Gault) 39.0 Glucose Level 121 mg/dL (70-99) Calcium Level 8.4 mg/dL (8.5-10.1) Magnesium Level 1.8 mg/dL (1.8-2.4) Test 01/31/17 07:46 Glucose (Fingerstick) 112 mg/dL (70-99) TIMOTHY CONROY MD Jan 31, 2017 08:30
[2017-01-31] MEDS ORDERED: FUROSEMIDE 40 MG/4 ML VIAL. IVP ONE (09:00)
[2017-01-31] MEDS: FUROSEMIDE 40 MG TABLET. PO SCH (09:00)
--- NOTE | 2017-01-31 09:06 | PDOC3 ---
NEVA LOONEY ALUMINUM SIDING APPLICATOR 01/31/17 0906: IM DISCHARGE & PROGRESS NOTES Date of Admission Date of Admission Date of Admission: Jan 23, 2017 at 11:18 Date of Discharge Date of Discharge 01/31/17 Primary Diagnosis Primary Diagnosis IMPRESSION: 1. 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 ARF WILNER ATN diuretics with underlying CKD II 3. R moderate pleural effusion underlying R sided heart failure 4. metabolic encephalopathy 5. leukocytosis w/o fever 6. Coronary artery disease. with h/o stent/CABG 7. History of myocardial infarction.>8wk 7. Hyperlipidemia. 8. History of colon cancer with colon resection. 9. Diabetes mellitus type 2, not controlled. poor compliance with diet 10. AFchronic eliquis AICD 11. mod MR 12. HTN 13. hyperkalemia 14. epitaxis 15. COPD-chronic obstructive stable at admit Consults Consults Kirill Rangel MD, Dr., Dr., Dr. Procedures Procedures BRIEF OPERATIVE NOTE Pre-Op Diagnosis right pleural effusion Post-Op Diagnosis same Procedure Performed Us thoracentesis Surgeon Stacy Anesthesia Type: Local Findings 1600 cc of thin gloria fluid Complications No immediate PATRICIA DUNHAM MD Jan 28, 2017 10:[address] [employer] automatic implantable cardioverter defibrillator upgrade to biventricular ICD/DYE AND CHEMICAL COORDINATOR-D INDICATIONS Cardiac resynchronization therapy in a patient with chronic systolic heart failure and prolonged QRS interval 160 ms PROCEDURE After explaining the risks, benefits, and alternative options, informed consent was obtained from the patient. The patient was brought to the cardiac catheterization lab and the left chest and shoulder were prepped and draped in the usual fashion. 30 mL of 2% lidocaine was infiltrated into the skin and subcutaneous tissues for local anesthesia. An incision was made over the previous scar and using blunt dissection and cautery the pocket was opened, capsule exposed and opened and the previously placed generator removed. The right atrial and right ventricular leads were detached, interrogated and found to be functioning well. Venous access was obtained in the left subclavian vein and 9 English coronary sinus sheath was inserted. With the help of contrast injections using CASS2 catheter within the right atrium, the coronary sinus ostium was engaged and the sheath advanced. With the balloontipped catheter inflated in the coronary sinus venogram was obtained to identify the appropriate posterolateral vein. Subsequently, a [employer] left ventricular lead was advanced into the posterolateral vein under fluoroscopic guidance. This lead along with the previously placed right atrial and right ventricular leads were attached percent juice biventricular ICD/DYE AND CHEMICAL COORDINATOR-D generator model [id number] serial number [id number]. This was placed in the pocket was subsequently closed in 3 layers. Hemostasis was secured. There were no immediate complications. The left ventricular lead showed sensing amplitude of 0.75 V at the end of procedure. CONCLUSION Successful [employer] AICD upgrade to biventricular ICD/DYE AND CHEMICAL COORDINATOR-D for cardiac resynchronization therapy in a patient with chronic systolic heart failure and prolonged QRS interval. DICTATED and SIGNED BY: YESENIA CHACON MD DATE: 01/29/171721 Labs Labs Laboratory Tests Test 01/28/17 10:30 01/28/17 12:10 01/28/17 16:56 01/28/17 20:52 Body Fluid Total Protein 2.6 g/dL (.) Body Fluid Lactate Dehydrogenase 75 IU/L (.) Glucose (Fingerstick) 103 mg/dL (70-99) 161 mg/dL (70-99) 197 mg/dL (70-99) Test 01/29/17 05:00 01/29/17 06:00 01/29/17 07:33 01/29/17 11:27 White Blood Count 8.0 x10^3/uL (4.0-11.0) Red Blood Count 3.26 x10^6/uL (4.30-5.70) Hemoglobin 8.5 g/dL (13.0-17.5) Hematocrit 25.8 % (39.0-53.0) Mean Corpuscular Volume 79 fL (79-100) Mean Corpuscular Hemoglobin 26 pg (25-35) Mean Corpuscular Hemoglobin Concent 33 g/dL (31-37) Red Cell Distribution Width 19.3 % (11.5-14.5) Platelet Count 151 x10^3/uL (140-400) Neutrophils (%) (Auto) 82 % (31-73) Lymphocytes (%) (Auto) 11 % (24-48) Monocytes (%) (Auto) 4 % (0-9) Eosinophils (%) (Auto) 3 % (0-3) Basophils (%) (Auto) 0 % (0-3) Neutrophils # (Auto) 6.6 x10^3uL (1.8-7.7) Lymphocytes # (Auto) 0.9 x10^3/uL (1.0-4.8) Monocytes # (Auto) 0.3 x10^3/uL (0.0-1.1) Eosinophils # (Auto) 0.2 x10^3/uL (0.0-0.7) Basophils # (Auto) 0.0 x10^3/uL (0.0-0.2) Sodium Level 141 mmol/L (136-145) Potassium Level 3.6 mmol/L (3.5-5.1) Chloride Level 104 mmol/L (98-107) Carbon Dioxide Level 31 mmol/L (21-32) Anion Gap 6 (6-14) Blood Urea Nitrogen 23 mg/dL (8-26) Creatinine 1.9 mg/dL (0.7-1.3) Estimated GFR (Cockcroft-Gault) 34.3 Glucose Level 117 mg/dL (70-99) Calcium Level 7.7 mg/dL (8.5-10.1) Magnesium Level 1.7 mg/dL (1.8-2.4) Glucose (Fingerstick) 115 mg/dL (70-99) 108 mg/dL (70-99) Test 01/29/17 18:00 01/29/17 20:34 01/30/17 04:00 01/30/17 07:43 Glucose (Fingerstick) 140 mg/dL (70-99) 219 mg/dL (70-99) 106 mg/dL (70-99) White Blood Count 9.1 x10^3/uL (4.0-11.0) Red Blood Count 3.43 x10^6/uL (4.30-5.70) Hemoglobin 8.9 g/dL (13.0-17.5) Hematocrit 27.4 % (39.0-53.0) Mean Corpuscular Volume 80 fL (79-100) Mean Corpuscular Hemoglobin 26 pg (25-35) Mean Corpuscular Hemoglobin Concent 33 g/dL (31-37) Red Cell Distribution Width 19.6 % (11.5-14.5) Platelet Count 143 x10^3/uL (140-400) Neutrophils (%) (Auto) 87 % (31-73) Lymphocytes (%) (Auto) 7 % (24-48) Monocytes (%) (Auto) 4 % (0-9) Eosinophils (%) (Auto) 2 % (0-3) Basophils (%) (Auto) 0 % (0-3) Neutrophils # (Auto) 7.9 x10^3uL (1.8-7.7) Lymphocytes # (Auto) 0.6 x10^3/uL (1.0-4.8) Monocytes # (Auto) 0.4 x10^3/uL (0.0-1.1) Eosinophils # (Auto) 0.2 x10^3/uL (0.0-0.7) Basophils # (Auto) 0.0 x10^3/uL (0.0-0.2) Sodium Level 140 mmol/L (136-145) Potassium Level 3.8 mmol/L (3.5-5.1) Chloride Level 102 mmol/L (98-107) Carbon Dioxide Level 31 mmol/L (21-32) Anion Gap 7 (6-14) Blood Urea Nitrogen 22 mg/dL (8-26) Creatinine 1.8 mg/dL (0.7-1.3) Estimated GFR (Cockcroft-Gault) 36.5 Glucose Level 172 mg/dL (70-99) Calcium Level 8.4 mg/dL (8.5-10.1) Magnesium Level 2.0 mg/dL (1.8-2.4) Test 01/30/17 11:52 01/30/17 17:31 01/30/17 20:10 01/31/17 06:05 Glucose (Fingerstick) 164 mg/dL (70-99) 132 mg/dL (70-99) 143 mg/dL (70-99) White Blood Count 8.7 x10^3/uL (4.0-11.0) Red Blood Count 3.39 x10^6/uL (4.30-5.70) Hemoglobin 8.8 g/dL (13.0-17.5) Hematocrit 27.9 % (39.0-53.0) Mean Corpuscular Volume 82 fL (79-100) Mean Corpuscular Hemoglobin 26 pg (25-35) Mean Corpuscular Hemoglobin Concent 32 g/dL (31-37) Red Cell Distribution Width 20.0 % (11.5-14.5) Platelet Count 123 x10^3/uL (140-400) Neutrophils (%) (Auto) 79 % (31-73) Lymphocytes (%) (Auto) 13 % (24-48) Monocytes (%) (Auto) 4 % (0-9) Eosinophils (%) (Auto) 3 % (0-3) Basophils (%) (Auto) 1 % (0-3) Neutrophils # (Auto) 6.9 x10^3uL (1.8-7.7) Lymphocytes # (Auto) 1.1 x10^3/uL (1.0-4.8) Monocytes # (Auto) 0.3 x10^3/uL (0.0-1.1) Eosinophils # (Auto) 0.3 x10^3/uL (0.0-0.7) Basophils # (Auto) 0.1 x10^3/uL (0.0-0.2) Sodium Level 141 mmol/L (136-145) Potassium Level 4.0 mmol/L (3.5-5.1) Chloride Level 103 mmol/L (98-107) Carbon Dioxide Level 30 mmol/L (21-32) Anion Gap 8 (6-14) Blood Urea Nitrogen 23 mg/dL (8-26) Creatinine 1.7 mg/dL (0.7-1.3) Estimated GFR (Cockcroft-Gault) 39.0 Glucose Level 121 mg/dL (70-99) Calcium Level 8.4 mg/dL (8.5-10.1) Magnesium Level 1.8 mg/dL (1.8-2.4) Test 01/31/17 07:46 Glucose (Fingerstick) 112 mg/dL (70-99) Medications Medications Medications reviewed and reconciled for discharge. Brief hospital course Brief hospital course This 81 year old male who presented with acute on chronic systolic/ diastolic CHF and ARF was admitted. The following is a summary of his treatment: a/c CHF Lasix 40mg IV x1 cardiology consult daily wt IO admit wt not obtained 01/24 154.4# 01/25 149.13 01/26 147.31 01/28 149.06 08/15 146.25 01/30 148.38 147.19# BNP 81008 edema LE-venous doppler report negative ECHO 01/24 EF 10-15%, grade IV diastolic, mod MR TR mild AR Pulmonic regurg, severe pulmonary HTN, CO 20-30% Dobutamine 5mcg 01/24 DC 01/29 Renal: renew enestro planned in future Lasix 40mg po daily 01/26 Bi vent AICD placed 01/29-shoulder immobilizer CXR 01/28 continued vascular congestion, patchy opacity LL base unchanged, pleural effusion improved post thoracentesis 01/29 CXR improving OP dobutamine infusion with occasional lasix per renal note Per Dr. Barraza-will need monitoring of renal function with dobutamine infusions to determine baseline needs. SS would be appropriate. If not accepted to [facility], has agreed to SNU in facility where is. CXR 01/30-resolving infiltrates, pleural effusion R>L small ARF WILNER ATN nephrology consult renal US negative Admit Na 137 01/31 141 K 4.6 4.0 BUN 79 23 Cr 4.4 1.7 Mg 3.2 2.0 Procalcitonin 0.2 TCD placed 01/24 with 1st HD completed 01/25 KCL and Mg replacements stopped 01/24 Dialysis held 01/28 UOP for 01/28 2175cc re eval 01/29 Dialysis held 01/29 CKD III-IV baseline per renal Dyspnea multifactorial pulmonary consult Acute bronchitis pleural effusion-thoracentesis planned -eliquis needs held for 48h prior to procedure planned for Saturday WBC 15.5 01/31 8.7 ID consult empiric antibiotics: zithromax IV x1, zosyn IV , Zyvox po 01/24 nebulizer treatments 01/25 ID continue zyvox, zosyn, and zithromax po 01/28 thoracentesis 1600cc gloria thin fluid -culture prelim negative O2 2L 90-93% 01/28 Zithromax DC 01/28 O2 Sat 93-97%--improved Zosyn changed to augmentin 01/29 Zyvox DC 01/30 abnormal TSH acute illness-re eval OP in 2-3 months AF Eliquis stopped prior to thoracentesis-resume post procedure ELiquis held 01/29 until post PPM REsume Eliquis 01/30 2.5mg bid CAD ASA and Plavix discontinued-resume post procedure Plavix not restart until post PPM ASA 81mg resumed 01/29 metabolic encephalopathy monitor resolved DVT/GI prophylaxis SCD/ELEUTERIO PPI HTN SBP 130-140s on dobutamine infusion epitaxsis ENT consult off anticoag Plavix and ASA since admission 2L with NC in mouth 93% d/w Dr. Ortiz in ED, she cannot treat at this time Instructed to blow nose, 2-3 sprays afrin, clamp nose for 15min and release. resolved DM II FSBS/SSI Metformin DC prior to admit BS 112-164 COPD: Obstr Chronic Bronchitis stable For further plan of care, please refer to the orders. The patient was seen and examined by me. Chart reviewed and plan of care formulated. Discussed with, reviewed and agree with POLE CLASSIFIER's notes, plan of care and orders with modifications as necessary. For more details regarding further plans, please refer to the orders. COPD: Obstr Chronic Bronchitis For more details regarding the past history, family history, social history, surgical history and other details, please refer to History and Physical. Subjective No dyspnea. Objective no distress Vitals Vital Signs Date Time Temp Pulse Resp B/P (MAP) Pulse Ox O2 Delivery O2 Flow Rate FiO2 01/31/17 07:00 97.7 61 18 125/67 (86) 97 Nasal Cannula 2.0 97.7 Physical Exam General appearance - alert, ill; appearing, and in no distress Mental Status - alert, oriented to person, place, and time, affect appropriate to mood Head - normal Nose -active bleeding bilateral nares Chest - clear to auscultation, no wheezes, improved BS RLL Heart - S1 and S2 normal, irreg Abdomen - soft, nontender, nondistended, BS + Neurological - no acute neurological deficits noted. confusion improving. Musculoskeletal - no muscular tenderness noted Extremities - trace edema Skin - warm and dry Medications Medications reviewed. Allergy Allergies Coded Allergies Type Severity Reaction Last Updated Verified No Known Drug Allergies 07/05/15 No Follow up Admit to facility Disposition: Assisted facility Comments Discharge Management - 35 minutes. For other details please refer to discharge instructions TOM FOSTER MD 01/31/17 0949: IM DISCHARGE & PROGRESS NOTES Brief hospital course Brief hospital course Doing better. Discharge today to MD. The patient was seen and examined by me. Chart reviewed and plan of care formulated. Discussed with, reviewed and agree with POLE CLASSIFIER's notes, plan of care and orders with modifications as necessary. Discharge Management - 35 minutes. NEVA LOONEY APRN Jan 31, 2017 09:06 TOM FOSTER MD Jan 31, 2017 09:49
--- NOTE | 2017-01-31 09:11 | DISCH ---
DISCHARGE DISCHARGE DATE: Jan 31, 2017 CONDITION ON DISCHARGE: Stable SNF STAY <30 DAYS: Yes POST DISCHARGE ORDERS ACTIVITY ORDERS: Activity as tolerated WEIGHT BEARING STATUS: Full weight bearing OTHER WOUND INSTRUCTIONS: L shoulder immobilizer 2 weeks post PPM placement CHECKS AFTER DISCHARGE CHECKS AFTER DISCHARGE: Check blood sugar, ac/hs, Weigh Yourself Daily ([place] [facility] >2# in 24 hours or 3# in 48 hours) COMMENTS: VS per routine FOLLOW-UP PHYSICIAN FOLLOW-UP: [facility] ADDITIONAL FOLLOW-UP: F/U Dr. Barraza weekly LAB ORDERS FOR FOLLOW-UP: CBC with diff, CMP, prealbumin in AM after admit TREATMENT/EQUIPMENT ORDERS ADAPTIVE EQUIPMENT NEEDED: Brace/splint (L shoulder immobilizer), Wheelchair NEVA LOONEY APRN Jan 31, 2017 09:11
[2017-01-31] MEDS: MULTIVITAMIN with MINERAL TABLET. PO SCH (09:47)
[2017-01-31] MEDS: METOPROLOL SUCC 24HR ER 50 MG TAB.ER.24H. PO SCH (09:48)
[2017-01-31] MEDS: OMEGA-3 FATTY ACIDS/FISH OIL 1,000 MG CAPSULE. PO SCH (09:48)
[2017-01-31] MEDS: AMOXICILLIN/K CLAV 500/125MG TABLET. PO SCH (09:49)
[2017-01-31] MEDS: POTASSIUM CHLORIDE 20 MEQ TABLET.ER. PO SCH (09:49)
--- NOTE | 2017-01-31 10:46 | PDOC ---
PULMONARY PROGRESS NOTES Subjective no soa Vitals Vital Signs Date Time Temp Pulse Resp B/P (MAP) Pulse Ox O2 Delivery O2 Flow Rate FiO2 01/31/17 09:48 61 125/67 01/31/17 07:00 97.7 18 97 Nasal Cannula 2.0 97.7 General: Alert, No acute distress Lungs: Other (decrease bs Right base) Cardiovascular: S1 Abdomen: Soft Neuro Exam: Alert Extremities: Other (2+edema) Labs Laboratory Tests Test 01/29/17 11:27 01/29/17 18:00 01/29/17 20:34 01/30/17 04:00 Glucose (Fingerstick) 108 mg/dL (70-99) 140 mg/dL (70-99) 219 mg/dL (70-99) White Blood Count 9.1 x10^3/uL (4.0-11.0) Red Blood Count 3.43 x10^6/uL (4.30-5.70) Hemoglobin 8.9 g/dL (13.0-17.5) Hematocrit 27.4 % (39.0-53.0) Mean Corpuscular Volume 80 fL (79-100) Mean Corpuscular Hemoglobin 26 pg (25-35) Mean Corpuscular Hemoglobin Concent 33 g/dL (31-37) Red Cell Distribution Width 19.6 % (11.5-14.5) Platelet Count 143 x10^3/uL (140-400) Neutrophils (%) (Auto) 87 % (31-73) Lymphocytes (%) (Auto) 7 % (24-48) Monocytes (%) (Auto) 4 % (0-9) Eosinophils (%) (Auto) 2 % (0-3) Basophils (%) (Auto) 0 % (0-3) Neutrophils # (Auto) 7.9 x10^3uL (1.8-7.7) Lymphocytes # (Auto) 0.6 x10^3/uL (1.0-4.8) Monocytes # (Auto) 0.4 x10^3/uL (0.0-1.1) Eosinophils # (Auto) 0.2 x10^3/uL (0.0-0.7) Basophils # (Auto) 0.0 x10^3/uL (0.0-0.2) Sodium Level 140 mmol/L (136-145) Potassium Level 3.8 mmol/L (3.5-5.1) Chloride Level 102 mmol/L (98-107) Carbon Dioxide Level 31 mmol/L (21-32) Anion Gap 7 (6-14) Blood Urea Nitrogen 22 mg/dL (8-26) Creatinine 1.8 mg/dL (0.7-1.3) Estimated GFR (Cockcroft-Gault) 36.5 Glucose Level 172 mg/dL (70-99) Calcium Level 8.4 mg/dL (8.5-10.1) Magnesium Level 2.0 mg/dL (1.8-2.4) Test 01/30/17 07:43 01/30/17 11:52 01/30/17 17:31 01/30/17 20:10 Glucose (Fingerstick) 106 mg/dL (70-99) 164 mg/dL (70-99) 132 mg/dL (70-99) 143 mg/dL (70-99) Test 01/31/17 06:05 01/31/17 07:46 White Blood Count 8.7 x10^3/uL (4.0-11.0) Red Blood Count 3.39 x10^6/uL (4.30-5.70) Hemoglobin 8.8 g/dL (13.0-17.5) Hematocrit 27.9 % (39.0-53.0) Mean Corpuscular Volume 82 fL (79-100) Mean Corpuscular Hemoglobin 26 pg (25-35) Mean Corpuscular Hemoglobin Concent 32 g/dL (31-37) Red Cell Distribution Width 20.0 % (11.5-14.5) Platelet Count 123 x10^3/uL (140-400) Neutrophils (%) (Auto) 79 % (31-73) Lymphocytes (%) (Auto) 13 % (24-48) Monocytes (%) (Auto) 4 % (0-9) Eosinophils (%) (Auto) 3 % (0-3) Basophils (%) (Auto) 1 % (0-3) Neutrophils # (Auto) 6.9 x10^3uL (1.8-7.7) Lymphocytes # (Auto) 1.1 x10^3/uL (1.0-4.8) Monocytes # (Auto) 0.3 x10^3/uL (0.0-1.1) Eosinophils # (Auto) 0.3 x10^3/uL (0.0-0.7) Basophils # (Auto) 0.1 x10^3/uL (0.0-0.2) Sodium Level 141 mmol/L (136-145) Potassium Level 4.0 mmol/L (3.5-5.1) Chloride Level 103 mmol/L (98-107) Carbon Dioxide Level 30 mmol/L (21-32) Anion Gap 8 (6-14) Blood Urea Nitrogen 23 mg/dL (8-26) Creatinine 1.7 mg/dL (0.7-1.3) Estimated GFR (Cockcroft-Gault) 39.0 Glucose Level 121 mg/dL (70-99) Calcium Level 8.4 mg/dL (8.5-10.1) Magnesium Level 1.8 mg/dL (1.8-2.4) Glucose (Fingerstick) 112 mg/dL (70-99) Laboratory Tests Test 01/30/17 11:52 01/30/17 17:31 01/30/17 20:10 01/31/17 06:05 Glucose (Fingerstick) 164 mg/dL (70-99) 132 mg/dL (70-99) 143 mg/dL (70-99) White Blood Count 8.7 x10^3/uL (4.0-11.0) Red Blood Count 3.39 x10^6/uL (4.30-5.70) Hemoglobin 8.8 g/dL (13.0-17.5) Hematocrit 27.9 % (39.0-53.0) Mean Corpuscular Volume 82 fL (79-100) Mean Corpuscular Hemoglobin 26 pg (25-35) Mean Corpuscular Hemoglobin Concent 32 g/dL (31-37) Red Cell Distribution Width 20.0 % (11.5-14.5) Platelet Count 123 x10^3/uL (140-400) Neutrophils (%) (Auto) 79 % (31-73) Lymphocytes (%) (Auto) 13 % (24-48) Monocytes (%) (Auto) 4 % (0-9) Eosinophils (%) (Auto) 3 % (0-3) Basophils (%) (Auto) 1 % (0-3) Neutrophils # (Auto) 6.9 x10^3uL (1.8-7.7) Lymphocytes # (Auto) 1.1 x10^3/uL (1.0-4.8) Monocytes # (Auto) 0.3 x10^3/uL (0.0-1.1) Eosinophils # (Auto) 0.3 x10^3/uL (0.0-0.7) Basophils # (Auto) 0.1 x10^3/uL (0.0-0.2) Sodium Level 141 mmol/L (136-145) Potassium Level 4.0 mmol/L (3.5-5.1) Chloride Level 103 mmol/L (98-107) Carbon Dioxide Level 30 mmol/L (21-32) Anion Gap 8 (6-14) Blood Urea Nitrogen 23 mg/dL (8-26) Creatinine 1.7 mg/dL (0.7-1.3) Estimated GFR (Cockcroft-Gault) 39.0 Glucose Level 121 mg/dL (70-99) Calcium Level 8.4 mg/dL (8.5-10.1) Magnesium Level 1.8 mg/dL (1.8-2.4) Test 01/31/17 07:46 Glucose (Fingerstick) 112 mg/dL (70-99) Medications Active Scripts Medications Dose Route/Sig Max Daily Dose Days Date Category Metolazone 2.5 Mg Tablet 2.5 Mg PO SATURDAY -SATURDAY PRN 01/23/17 Reported Entresto 24 mg-26 mg Tablet (Sacubitril/Valsartan) 1 Each Tablet 1 Each PO BID 01/23/17 Reported Aspir 81 (Aspirin) 81 Mg Tablet.dr 81 Mg PO 01/23/17 Reported Mag-Oxide (Magnesium Oxide) 400 Mg Tablet 1 Tab PO BID 01/23/17 Reported NITROGLYCERIN SubLingual (Nitroglycerin) 0.4 Mg Tab.subl 0.4 Mg SL PRN Q5MIN PRN 01/23/17 Reported Metoprolol Succinate ( Xl ) (Metoprolol Succinate) 25 Mg Tab.er.24h 50 Mg PO DAILY 01/23/17 Reported Eliquis (Apixaban) 5 Mg Tablet 5 Mg PO BID 01/23/17 Reported Amiodarone Hcl 200 Mg Tablet 200 Mg PO TID 04/24/16 Rx Savaysa (Edoxaban Tosylate) 60 Mg Tablet 60 Mg PO QHS 04/21/16 Reported [place]-3 Fish Oil 1,000 Mg Sfgl ([place]-3/Dha/Epa/Fish Oil) 1,000 Mg Capsule 1,000 Mg PO DAILY 10/31/15 Reported Metformin Hcl 850 Mg Tablet 850 Mg PO BIDWMEALS 10/31/15 Reported Plavix (Clopidogrel Bisulfate) 75 Mg Tablet 75 Mg PO DAILY 10/31/15 Reported Crestor (Rosuvastatin Calcium) 20 Mg Tablet 20 Mg PO HS 05/29/14 Reported Losartan Potassium 25 Mg Tablet 50 Mg PO DAILY 05/29/14 Reported Furosemide 40 Mg Tablet 40 Mg PO DAILY 05/29/14 Reported Potassium Chloride 20 Meq Tab.er.prt 20 Meq PO DAILY 05/29/14 Reported Impression . 1. Acute hypoxic respiratory failure secondary to acute on chronic systolic heart failure and moderate-sized right pleural effusion. 2. 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 3. No significant history of tobacco use. 4. Acute on chronic renal failure. Suspect secondary to poor cardiac pump function. 5. Doubt Pneumonia/ ct chest with large effusion, no consolidation Plan . 1. s/p thoracentesis . re-started on Eliquis and Plavix, transudate 2. Follow Cardiology recommendations. 3. Follow renal recommendations. dialysis 4. PO antibiotics. ok with dc to rehab BABATUNDE THEODORE MD Jan 31, 2017 10:46
[2017-01-31 11:00] VITALS: BP 140/78
[2017-01-31 11:21] LABS: INR 1.4 (0.8-1.1); PROTHROMBIN TIME PATIENT 16.3 SEC (11.7-14.0)
[2017-01-31] MEDS: ASPIRIN CHEWABLE 81 MG TABLET. PO SCH (14:42)
[2017-01-31] MEDS: APIXABAN 2.5 MG TABLET. PO SCH (14:43)
[2017-01-31 15:00] VITALS: BP 125/78
[2017-02-01] MEDS ORDERED: IRON SUCROSE COMPLEX 200 MG in IV NORMAL SALINE 100ML 100 ML IV SCH (09:00)
== END 2017-01-31 16:45 | DRG 226 ==
LOC: EDBD 11:18 → 2 SOUTH 11:18
PROVIDERS: ADMIT Internal Medicine; ATTEND Internal Medicine
PROC: 02H633Z Insertion of Infusion Device into Right Atrium, Percutaneous Approach (ICD-10-PCS; principal; 2017-01-24)
PROC: 02HL3KZ Insertion of Defibrillator Lead into Left Ventricle, Percutaneous Approach (ICD-10-PCS; 2017-01-24)
PROC: B244ZZZ Ultrasonography of Right Heart (ICD-10-PCS; 2017-01-24)
PROC: 0JH609Z Insertion of Cardiac Resynchronization Defibrillator Pulse Generator into Chest Subcutaneous Tissue and Fascia, Open Approach (ICD-10-PCS; 2017-01-29)
PROC: 0JPT0PZ Removal of Cardiac Rhythm Related Device from Trunk Subcutaneous Tissue and Fascia, Open Approach (ICD-10-PCS; 2017-01-29)
DX: I50.43 Acute on chronic combined systolic (congestive) and diastolic (congestive) heart failure (principal); J96.01 Acute respiratory failure with hypoxia; N17.0 Acute kidney failure with tubular necrosis; G93.41 Metabolic encephalopathy; N18.4 Chronic kidney disease, stage 4 (severe); I42.9 Cardiomyopathy, unspecified; I13.0 Hypertensive heart and chronic kidney disease with heart failure and stage 1 through stage 4 chronic kidney disease, or unspecified chronic kidney disease; E11.22 Type 2 diabetes mellitus with diabetic chronic kidney disease; E11.65 Type 2 diabetes mellitus with hyperglycemia; D64.9 Anemia, unspecified; I25.2 Old myocardial infarction; E78.5 Hyperlipidemia, unspecified; E87.5 Hyperkalemia; I25.10 Atherosclerotic heart disease of native coronary artery without angina pectoris; I25.82 Chronic total occlusion of coronary artery; I27.2 Other secondary pulmonary hypertension; I37.1 Nonrheumatic pulmonary valve insufficiency; I48.91 Unspecified atrial fibrillation; J44.9 Chronic obstructive pulmonary disease, unspecified; J20.9 Acute bronchitis, unspecified; Z45.02 Encounter for adjustment and management of automatic implantable cardiac defibrillator; Z79.01 Long term (current) use of anticoagulants; Z79.02 Long term (current) use of antithrombotics/antiplatelets; Z79.82 Long term (current) use of aspirin; Z79.899 Other long term (current) drug therapy; Z83.3 Family history of diabetes mellitus; Z82.49 Family history of ischemic heart disease and other diseases of the circulatory system; Z85.038 Personal history of other malignant neoplasm of large intestine; Z90.49 Acquired absence of other specified parts of digestive tract; Z92.21 Personal history of antineoplastic chemotherapy; Z95.1 Presence of aortocoronary bypass graft
CPT/HCPCS: 32555; 33225; 36415; 36556; 71010; 71020; 71250; 76770; 76937; 77001; 80048; 80053; 80061; 81001; 82728; 82962; 83036; 83540; 83550; 83615; 83735; 83880; 84145; 84157; 84443; 85007; 85025; 85027; 85045; 85610; 86705; 86706; 87040; 87071; 87075; 87086; 87205; 87340; 87341; 88112; 88305; 93005; 93306; 93308; 93321; 93566; 93970; A4215; C1769; C1882; C1892; C1900; J0690; J0881; J1250; J1815; J1940; J2250; J2543; J3010; J3475; J3490; J7050; Q0144; 97110; 97116; 97530; 97535; J7030

== ENCOUNTER → 2017-02-11 | Outpatient (CLI) | payer MEDICARE ==
[2017-01-31 15:00] VITALS: BP 125/78
[~2017-02-11] MED LIST changes: +ACET325T9 PO; +AMOX1TAB10 PO; +APIX2.5T PO; +APIX5TAB PO; +ASPI-482 PO; +EDOX15TA PO; +MAGN400T22 PO; +METO2.5T PO; +METO25TA9 PO; +METO50TA10 PO; +MONT10TA9 PO; +MULT1TAB90 PO; +NITR0.4T22 SL; +SACU1TAB PO
--- NOTE | 2017-02-11 10:29 | RAD ---
Exam performed: 2 views of the chest. Indication: CONGESTIVE HEART FAILURE Date of Service:02/11/2017 2:00 AM . Comparison : 01/30/17 Findings: Interval increase in right-sided pleural effusion obscuring the right cardiac silhouette with underlying atelectasis. The left lung is clear. Median sternotomy and bipolar pacemaker. Impression: Moderate-sized right pleural effusion with underlying atelectasis.
== END | disposition home or self-care (01) ==
LOC: RAD 09:11
PROVIDERS: ATTEND Specialist
DX: I50.9 Heart failure, unspecified (principal)
CPT/HCPCS: 71020

== ENCOUNTER 2017-03-20 08:41 | Inpatient (IN) | payer MEDICARE ==
[~2017-03-20] VITALS: Ht 165.1 cm; Wt 64.4 kg
[2017-03-20] VITALS (10 sets, daily range): BP systolic 99–119; BP diastolic 56–61
[~2017-03-20 08:41] MED LIST changes: +CARV3.122 PO; +FURO80TA3 PO; +MAGN400O7 PO; +METO-239 PO; -METO25TA9 PO; -METO50TA10 PO; +METO50TA29 PO; +POTA20TA4 PO; +SPIR25TA PO
[2017-03-20] MEDS: METOPROLOL SUCC 24HR ER 50 MG TAB.ER.24H. PO SCH (09:00)
[2017-03-20] MEDS ORDERED: DEXTROSE 50% 25 GM / 50ML DISP.SYRIN. IV PRN (09:45)
--- NOTE | 2017-03-20 10:09 | PDOC ---
Provider Note Provider Note Patient seen.H&P to follow. D/w patient and daughter. IV access poor.will need PICC or Midline. TOM FOSTER MD Mar 20, 2017 10:09
[2017-03-20 10:58] LABS: BASO # 0.1 x10^3/uL (0.0-0.2); BASO % 1 % (0-3); EOS % 3 % (0-3); HEMATOCRIT 31.5 % (39.0-53.0); HEMOGLOBIN 9.9 g/dL (13.0-17.5); LYMPH # 0.9 x10^3/uL (1.0-4.8); LYMPH % 12 % (24-48); MEAN CORPUSCULAR HEMOGLOBIN 26 pg (25-35); MEAN CORPUSCULAR HGB CONC 31 g/dL (31-37); MEAN CORPUSCULAR VOLUME 82 fL (79-100); MONO % 7 % (0-9); NEUT % 77 % (31-73); PLATELET COUNT 237 x10^3/uL (140-400); RED BLOOD COUNT 3.84 x10^6/uL (4.30-5.70); RED CELL DISTRIBUTION WIDTH 20.6 % (11.5-14.5); WHITE BLOOD COUNT 7.3 x10^3/uL (4.0-11.0)
--- NOTE | 2017-03-20 11:01 | HP ---
ADMIT DATE: REASON FOR ADMISSION: Congestive heart failure. HISTORY OF PRESENT ILLNESS: This 81-year-old male has been admitted to this institution several times with recurrent acute on chronic diastolic and systolic congestive heart failure with ejection fraction of 20% to 25%. He also has had recurrent right pleural effusion that at times it is very large. He becomes hypoxic, and his condition is worse and is requiring continuous oxygen by nasal cannula. As per the instruction of the logistician, Dr. Barraza, the patient has been readmitted to give him IV dobutamine and IV Lasix if needed for his CHF. He is currently a long-term resident. Previously, he has required IV dobutamine and IV Lasix drip. REVIEW OF SYSTEMS: At present time, the patient states that his dyspnea is improving. He still feels weak. He denies any nausea, vomiting, abdominal pain, leg cramps, dizziness. Other systems are reviewed and are negative. Prior to this admission, patient's Eliquis and aspirin have been put on hold because if he needs a thoracentesis, then we will have to wait for a few days for the medication to get out of his system. PAST MEDICAL HISTORY: As noted earlier, he has been admitted several times for congestive heart failure with EF as low as 10% to 15% with combined systolic and diastolic congestive heart failure and AICD. He has history of hypertension, atrial fibrillation, coronary artery disease, had stent and CABG, hyperlipidemia, moderate mitral regurgitation, right-sided pleural effusion with thoracentesis in the past; colon cancer, status post surgery and chemotherapy; chronic renal insufficiency stage 3, previous acute renal failure requiring temporary hemodialysis in 01/2017; diabetes mellitus type 2. PAST SURGICAL HISTORY: The patient had thoracentesis in 01/2017. He has a permanent pacemaker converted to AICD in 01/2017. Cholecystectomy, CABG and colon resection. FAMILY HISTORY: Positive for diabetes, heart disease, hypertension. SOCIAL HISTORY: History of smoking. No history of alcoholism or drug abuse. SYSTEMS REVIEW: As noted in the history of present illness. A 14-point systems review completed. The patient stated that he is watching his diet and fluid intake better. ALLERGIES: None known any. MEDICATIONS: Please refer to the orders for medication list. PHYSICAL EXAMINATION: GENERAL: The patient is an elderly male who is alert, oriented x 3 and not in acute distress. VITAL SIGNS: Temperature 97.7, pulse 85 per minute, respirations 18 per minute, blood pressure 107/61 mmHg. LUNGS: Decreased breath sounds at bases. CARDIOVASCULAR SYSTEM: S1, S2 regular. ABDOMEN: Soft, nontender. No guarding, no rigidity. Liver, spleen and kidney not palpable. Bowel sounds present. EYES: Pupils reacting to light. Conjunctivae pale. Sclerae muddy. THROAT: No congestion. Tongue, no thrush. EXTREMITIES: No edema, no cyanosis, no calf tenderness. O2 sat is 98% on oxygen by nasal cannula 2 liters per minute. CENTRAL NERVOUS SYSTEM: Alert and oriented. No acute changes noted, generalized weakness. LABORATORY FINDINGS: Pending. IMPRESSION: 1. 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 2. Recurrent right pleural effusion. We will order chest x-ray. 3. Atrial fibrillation, currently Eliquis and aspirin on hold in case if he needs thoracentesis. 4. History of coronary artery disease, status post coronary artery bypass graft and stent placement. 5. Moderate mitral regurgitation. 6. Hyperlipidemia. 7. Right-sided pleural effusion with history of thoracentesis. 8. History of colon cancer. 9. Chronic kidney disease stage 3. 10. Diabetes mellitus type 2. 11. Congestive heart failure is both systolic and diastolic with 10% to 15% ejection fraction and automatic implantable cardioverter defibrillator. PLAN: Consult Dr. Barraza for cardiology evaluation and management. The patient will be started on dobutamine drip. Continue other treatment. Check labs. I will order a chest x-ray. From here, the patient would like to go home rather than back to the long-term. Hopefully, he will be more compliant and keep his oxygen on, because without that he gets hypoxic and confused. For details, please refer to the orders. I will consult [facility] to set up home oxygen and any other help that he needs at home along with home health services. The patient will be in the hospital for about 3 days for IV dobutamine and will be discharged later to home For details, please review the orders TOM FOSTER MD DR: IVANNA/chet JOB#: [id number] / [id number]
[2017-03-20 11:15] LABS: ALBUMIN 3.4 g/dL (3.4-5.0); ALBUMIN/GLOBULIN RATIO 0.8 (1.0-1.7); CALCIUM 8.8 mg/dL (8.5-10.1); CREATININE 2.1 mg/dL (0.7-1.3); GFR 30.5; POTASSIUM 3.9 mmol/L (3.5-5.1); TOTAL BILIRUBIN 0.4 mg/dL (0.2-1.0); TOTAL PROTEIN 7.7 g/dL (6.4-8.2)
[2017-03-20] MEDS ORDERED: INFLUENZA VAX SCREEN BY RX. MC ONE (11:45)
[2017-03-20] MEDS: INSULIN ASPART 300 UNITS/3 ML INSULN.PEN SQ SCH ×2 (12:00→17:00)
[2017-03-20] MEDS ORDERED: ANTI-COAG MONITOR BY PHARMACY. MC PRN (12:15)
[2017-03-20] MEDS ORDERED: INSULIN ASPART 300 UNITS/3 ML INSULN.PEN SQ ONE (12:15)
[2017-03-20 12:18] LABS: ANISOCYTOSIS PRESENT; PLT ESTIMATE ADEQUATE (ADEQUATE); POIKILOCYTOSIS PRESENT
[2017-03-20] MEDS: APIXABAN 2.5 MG TABLET. PO SCH ×2 (12:30→21:15)
--- NOTE | 2017-03-20 12:59 | RAD ---
Chest x-ray Indication: PICC line placement Technique: Portable AP upright chest Comparison: Previous study from the same day earlier Findings: Left chest wall cardiac device is seen with the lead projecting over the heart. Heart is mildly enlarged in size. Median sternotomy changes. Interval placement of right-sided PICC line with its tear at the cavoatrial junction. No pneumothorax. Blunting of right costophrenic angle noted. Mild bilateral prominence of pulmonary vasculature. Visualized bony thorax within normal limits. Impression: 1. Optimal position of right-sided PICC line 2. Mild bilateral pulmonary vascular congestion. 3. Trace right pleural effusion.
[2017-03-20] MEDS ORDERED: NITROGLYCERIN SUBLINGUAL 0.4 MG BOTTLE OF 25. SL PRN (13:00)
[2017-03-20] MEDS ORDERED: ACETAMINOPHEN 325 MG TABLET. PO PRN (13:00)
[2017-03-20] MEDS: MULTIVITAMIN with MINERAL TABLET. PO SCH (13:00)
[2017-03-20] MEDS ORDERED: MAGNESIUM HYDROXIDE 2,400 MG/30 ML ORAL.SUSP. PO PRN (13:00)
[2017-03-20] MEDS: SPIRONOLACTONE 25 MG TABLET PO SCH (13:00)
[2017-03-20] MEDS: OMEGA-3 FATTY ACIDS/FISH OIL 1,000 MG CAPSULE. PO SCH (13:00)
[2017-03-20] MEDS ORDERED: 0.9 % SODIUM CHLORIDE 10 ML DISP.SYRIN. IV PRN ×2 (13:00)
--- NOTE | 2017-03-20 13:15 | RAD ---
CHEST PA LATERAL Clinical Indication: chf Comparison: Chest radiograph dated 03/01/2017 Findings: Stable left pacemaker. Low lung volume. No new consolidation. Stable pulmonary vasculature. Decrease in size of small to moderate right pleural effusion. Possible small left pleural effusion. No pneumothorax. Stable cardiomegaly. CABG. The great vessels of the thorax are stable. Prior median sternotomy. IMPRESSION: 1. Decrease in size of small to moderate right pleural effusion. Possible small left pleural effusion. 2. Stable cardiomegaly. 3. Stable left pacemaker.
[2017-03-20] MEDS: FUROSEMIDE 80 MG TABLET. PO SCH (14:00)
[2017-03-20] MEDS: CARVEDILOL 3.125 MG TABLET. PO SCH (17:16)
[2017-03-20] MEDS ORDERED: FLU VACC QS2017-18 (36MOS+)/PF 0.5 ML SYRINGE. VAX IM ONE (18:00)
[2017-03-20] MEDS: SACUBITRIL/VALSARTAN 24/26MG TABLET. PO SCH (21:15)
[2017-03-20] MEDS: ATORVASTATIN CALCIUM 40 MG TABLET. PO SCH (21:15)
[2017-03-20] MEDS: MONTELUKAST SODIUM 10 MG TABLET. PO SCH (21:15)
[2017-03-20] MEDS: MAGNESIUM OXIDE 400 MG TABLET PO SCH (21:15)
[2017-03-21] VITALS (10 sets, daily range): BP systolic 97–131; BP diastolic 54–62
[2017-03-21 04:36] LABS: BASO # 0.1 x10^3/uL (0.0-0.2); BASO % 1 % (0-3); EOS % 3 % (0-3); HEMATOCRIT 28.5 % (39.0-53.0); HEMOGLOBIN 9.3 g/dL (13.0-17.5); LYMPH # 1.5 x10^3/uL (1.0-4.8); LYMPH % 16 % (24-48); MEAN CORPUSCULAR HEMOGLOBIN 27 pg (25-35); MEAN CORPUSCULAR HGB CONC 33 g/dL (31-37); MEAN CORPUSCULAR VOLUME 81 fL (79-100); MONO % 10 % (0-9); NEUT % 70 % (31-73); PLATELET COUNT 226 x10^3/uL (140-400); RED BLOOD COUNT 3.52 x10^6/uL (4.30-5.70); RED CELL DISTRIBUTION WIDTH 20.3 % (11.5-14.5)
[2017-03-21 05:02] LABS: CALCIUM 8.8 mg/dL (8.5-10.1); CREATININE 1.7 mg/dL (0.7-1.3); POTASSIUM 3.7 mmol/L (3.5-5.1)
--- NOTE | 2017-03-21 06:15 | CONS ---
DATE OF CONSULTATION: 03/20/2017 HISTORY OF PRESENT ILLNESS: This is an 81-year-old white male who has been hospitalized for an inotropic infusion for severe ischemic cardiomyopathy, congestive heart failure that is not responding to guideline recommended medical treatment. He has had two open heart surgeries. His left ventricular systolic function has gradually deteriorated. He sustained non-STEMI in 10/2015 at which time, his EF dropped to 20%. He thereafter underwent cardiac catheterization and did not have any areas of obstruction that were amenable to percutaneous intervention. At that time, he had AICD placed. He was hospitalized here about 2 months ago with severe congestive heart failure, a large pleural effusion, severe dyspnea and hypoxia and edema of the legs. He became hypotensive with diuresis and his creatinine went up. Thereafter, he was placed on inotropic agent dobutamine. A stroke volume obtained prior to the dobutamine and after the dobutamine infusion showed significant improvement. He underwent thoracentesis. At that time, his creatinine was such that he had to have temporary dialysis. The dialysis was discontinued. He was sent home on diuretics. His creatinine thereafter has remained stable and has not really gone up to the extent to which he did 2 months ago. However, he was rehospitalized a month later. He had reaccumulated the large right pleural effusion and thoracentesis was performed. He was given dobutamine again. At this time, he underwent RUKHSANA, which showed [id number] mitral regurgitation. After his last hospitalization, he has been in the senior care with the higher dose of Lasix 80 mg twice a day. The Entresto that had originally been discontinued was reinstituted per the recommendation of Nephrology. Since then, he has done fairly well. He is able to ambulate more. He is still very dependent on oxygen. The edema of his legs has improved. In order to maintain his cardiac output and also at the recommendation of the clothing patternmaker who felt that the low cardiac output was responsible for his deterioration in his renal function requiring temporary dialysis, he was brought back again for a dobutamine infusion for about 2 or 3 days. Recently, he has been feeling much better. His appetite has improved. He has been able to ambulate with oxygen. He does not smoke or take alcohol. MEDICATIONS: 1. Atorvastatin 40 mg at night. 2. Metformin 850 mg twice a day. 3. Singulair 10 mg a day. 4. Plavix 75 mg a day for the non-STEMI a year ago. 5. Potassium chloride 20 mEq a day. 6. Magnesium oxide 400 mg twice a day. 7. Furosemide 40 mg twice a day. 8. Carvedilol 3.125 mg twice a day. 9. Eliquis 2.5 mg twice a day. 10. Amiodarone 200 mg at night. 11. Aspirin 81 mg a day. 12. Entresto twice a day. PHYSICAL EXAMINATION: GENERAL: He looks much better than during his previous hospitalizations. VITAL SIGNS: The heart rate was 80 per minute and regular. The blood pressure is 110/60. Oxygen saturation was more than 90% on 2 liters of oxygen. LUNGS: Clear. There were no rales or rhonchi. HEART: The heart sounds are normal. There was a grade 1/6 systolic murmur at the apex. There is no S3 or S4. ABDOMEN: Soft. EXTREMITIES: There is no edema of the legs. IMPRESSION: 1. Ischemic cardiomyopathy with ejection fraction of less than 20%. 2. Chronic systolic congestive heart failure. 3. Renal failure secondary to low cardiac output. 4. Very low cardiac output that improved with inotropes. 5. Hypoxia. 6. Large right pleural effusion that has not recurred since his last thoracentesis about a month ago. I would continue to maintain his dobutamine infusions for about 24-48 hours every month if needed. This will be guided by his symptoms of CHF and of low cardiac output. RUKHSANA was done last time and it showed only [id number] mitral regurgitation. I am not sure whether he would need mitral valve clipping, especially since his pleural effusion has not recurred. However, I will leave this decision up to the body shop technician at [facility]. We have called for an appointment. Thank you for asking me to see him. MELINDA FORTUNE MD DR: FAUZIA/chet JOB#: [id number] / [id number]
[2017-03-21] MEDS: INSULIN ASPART 300 UNITS/3 ML INSULN.PEN SQ SCH ×3 (08:00→17:00)
--- NOTE | 2017-03-21 08:26 | PDOC ---
NEVA LOONEY PUNCHBOARD STUFFER 03/21/17 0826: IM PROGRESS NOTES- Subjective Subjective Denies shortness of breath Objective Objective alert, no distress Vitals Vital Signs Date Time Temp Pulse Resp B/P (MAP) Pulse Ox O2 Delivery O2 Flow Rate FiO2 03/21/17 03:59 60 120/62 (81) 03/21/17 03:23 98.3 16 94 Room Air 98.3 03/20/17 20:00 2.0 Physical Exam Physical Exam General appearance - alert,well appearing, and in no distress Mental Status - alert, oriented to person, place, and time, affect appropriate to mood Head - normal Chest - clear to auscultation, no wheezes, rales or rhonchi, symmetric air entry Heart - S1 and S2 normal Abdomen - soft, nontender, nondistended, no masses or organomegaly Neurological - negative acute focal neurological defect Musculoskeletal - no muscular tenderness noted Extremities - no pedal edema Skin - warm and dry Labs Laboratory Tests Test 03/20/17 10:14 03/20/17 10:45 03/20/17 16:04 03/20/17 20:48 Glucose (Fingerstick) 349 mg/dL (70-99) 90 mg/dL (70-99) 158 mg/dL (70-99) White Blood Count 7.3 x10^3/uL (4.0-11.0) Red Blood Count 3.84 x10^6/uL (4.30-5.70) Hemoglobin 9.9 g/dL (13.0-17.5) Hematocrit 31.5 % (39.0-53.0) Mean Corpuscular Volume 82 fL (79-100) Mean Corpuscular Hemoglobin 26 pg (25-35) Mean Corpuscular Hemoglobin Concent 31 g/dL (31-37) Red Cell Distribution Width 20.6 % (11.5-14.5) Platelet Count 237 x10^3/uL (140-400) Neutrophils (%) (Auto) 77 % (31-73) Lymphocytes (%) (Auto) 12 % (24-48) Monocytes (%) (Auto) 7 % (0-9) Eosinophils (%) (Auto) 3 % (0-3) Basophils (%) (Auto) 1 % (0-3) Neutrophils # (Auto) 5.6 x10^3uL (1.8-7.7) Lymphocytes # (Auto) 0.9 x10^3/uL (1.0-4.8) Monocytes # (Auto) 0.5 x10^3/uL (0.0-1.1) Eosinophils # (Auto) 0.2 x10^3/uL (0.0-0.7) Basophils # (Auto) 0.1 x10^3/uL (0.0-0.2) Platelet Estimate Adequate (ADEQUATE) Poikilocytosis Present Basophilic Stippling Present Anisocytosis Present Sodium Level 136 mmol/L (136-145) Potassium Level 3.9 mmol/L (3.5-5.1) Chloride Level 96 mmol/L (98-107) Carbon Dioxide Level 36 mmol/L (21-32) Anion Gap 4 (6-14) Blood Urea Nitrogen 67 mg/dL (8-26) Creatinine 2.1 mg/dL (0.7-1.3) Estimated GFR (Cockcroft-Gault) 30.5 BUN/Creatinine Ratio 32 (6-20) Glucose Level 390 mg/dL (70-99) Calcium Level 8.8 mg/dL (8.5-10.1) Total Bilirubin 0.4 mg/dL (0.2-1.0) Aspartate Amino Transf (AST/SGOT) 17 U/L (15-37) Alanine Aminotransferase (ALT/SGPT) 24 U/L (16-63) Alkaline Phosphatase 108 U/L (46-116) Total Protein 7.7 g/dL (6.4-8.2) Albumin 3.4 g/dL (3.4-5.0) Albumin/Globulin Ratio 0.8 (1.0-1.7) Test 03/21/17 04:14 White Blood Count 9.0 x10^3/uL (4.0-11.0) Red Blood Count 3.52 x10^6/uL (4.30-5.70) Hemoglobin 9.3 g/dL (13.0-17.5) Hematocrit 28.5 % (39.0-53.0) Mean Corpuscular Volume 81 fL (79-100) Mean Corpuscular Hemoglobin 27 pg (25-35) Mean Corpuscular Hemoglobin Concent 33 g/dL (31-37) Red Cell Distribution Width 20.3 % (11.5-14.5) Platelet Count 226 x10^3/uL (140-400) Neutrophils (%) (Auto) 70 % (31-73) Lymphocytes (%) (Auto) 16 % (24-48) Monocytes (%) (Auto) 10 % (0-9) Eosinophils (%) (Auto) 3 % (0-3) Basophils (%) (Auto) 1 % (0-3) Neutrophils # (Auto) 6.3 x10^3uL (1.8-7.7) Lymphocytes # (Auto) 1.5 x10^3/uL (1.0-4.8) Monocytes # (Auto) 0.9 x10^3/uL (0.0-1.1) Eosinophils # (Auto) 0.3 x10^3/uL (0.0-0.7) Basophils # (Auto) 0.1 x10^3/uL (0.0-0.2) Sodium Level 136 mmol/L (136-145) Potassium Level 3.7 mmol/L (3.5-5.1) Chloride Level 98 mmol/L (98-107) Carbon Dioxide Level 33 mmol/L (21-32) Anion Gap 5 (6-14) Blood Urea Nitrogen 58 mg/dL (8-26) Creatinine 1.7 mg/dL (0.7-1.3) Estimated GFR (Cockcroft-Gault) 39.0 Glucose Level 111 mg/dL (70-99) Calcium Level 8.8 mg/dL (8.5-10.1) Laboratory Tests Test 03/20/17 10:14 03/20/17 10:45 03/20/17 16:04 03/20/17 20:48 Glucose (Fingerstick) 349 mg/dL (70-99) 90 mg/dL (70-99) 158 mg/dL (70-99) White Blood Count 7.3 x10^3/uL (4.0-11.0) Red Blood Count 3.84 x10^6/uL (4.30-5.70) Hemoglobin 9.9 g/dL (13.0-17.5) Hematocrit 31.5 % (39.0-53.0) Mean Corpuscular Volume 82 fL (79-100) Mean Corpuscular Hemoglobin 26 pg (25-35) Mean Corpuscular Hemoglobin Concent 31 g/dL (31-37) Red Cell Distribution Width 20.6 % (11.5-14.5) Platelet Count 237 x10^3/uL (140-400) Neutrophils (%) (Auto) 77 % (31-73) Lymphocytes (%) (Auto) 12 % (24-48) Monocytes (%) (Auto) 7 % (0-9) Eosinophils (%) (Auto) 3 % (0-3) Basophils (%) (Auto) 1 % (0-3) Neutrophils # (Auto) 5.6 x10^3uL (1.8-7.7) Lymphocytes # (Auto) 0.9 x10^3/uL (1.0-4.8) Monocytes # (Auto) 0.5 x10^3/uL (0.0-1.1) Eosinophils # (Auto) 0.2 x10^3/uL (0.0-0.7) Basophils # (Auto) 0.1 x10^3/uL (0.0-0.2) Platelet Estimate Adequate (ADEQUATE) Poikilocytosis Present Basophilic Stippling Present Anisocytosis Present Sodium Level 136 mmol/L (136-145) Potassium Level 3.9 mmol/L (3.5-5.1) Chloride Level 96 mmol/L (98-107) Carbon Dioxide Level 36 mmol/L (21-32) Anion Gap 4 (6-14) Blood Urea Nitrogen 67 mg/dL (8-26) Creatinine 2.1 mg/dL (0.7-1.3) Estimated GFR (Cockcroft-Gault) 30.5 BUN/Creatinine Ratio 32 (6-20) Glucose Level 390 mg/dL (70-99) Calcium Level 8.8 mg/dL (8.5-10.1) Total Bilirubin 0.4 mg/dL (0.2-1.0) Aspartate Amino Transf (AST/SGOT) 17 U/L (15-37) Alanine Aminotransferase (ALT/SGPT) 24 U/L (16-63) Alkaline Phosphatase 108 U/L (46-116) Total Protein 7.7 g/dL (6.4-8.2) Albumin 3.4 g/dL (3.4-5.0) Albumin/Globulin Ratio 0.8 (1.0-1.7) Test 03/21/17 04:14 White Blood Count 9.0 x10^3/uL (4.0-11.0) Red Blood Count 3.52 x10^6/uL (4.30-5.70) Hemoglobin 9.3 g/dL (13.0-17.5) Hematocrit 28.5 % (39.0-53.0) Mean Corpuscular Volume 81 fL (79-100) Mean Corpuscular Hemoglobin 27 pg (25-35) Mean Corpuscular Hemoglobin Concent 33 g/dL (31-37) Red Cell Distribution Width 20.3 % (11.5-14.5) Platelet Count 226 x10^3/uL (140-400) Neutrophils (%) (Auto) 70 % (31-73) Lymphocytes (%) (Auto) 16 % (24-48) Monocytes (%) (Auto) 10 % (0-9) Eosinophils (%) (Auto) 3 % (0-3) Basophils (%) (Auto) 1 % (0-3) Neutrophils # (Auto) 6.3 x10^3uL (1.8-7.7) Lymphocytes # (Auto) 1.5 x10^3/uL (1.0-4.8) Monocytes # (Auto) 0.9 x10^3/uL (0.0-1.1) Eosinophils # (Auto) 0.3 x10^3/uL (0.0-0.7) Basophils # (Auto) 0.1 x10^3/uL (0.0-0.2) Sodium Level 136 mmol/L (136-145) Potassium Level 3.7 mmol/L (3.5-5.1) Chloride Level 98 mmol/L (98-107) Carbon Dioxide Level 33 mmol/L (21-32) Anion Gap 5 (6-14) Blood Urea Nitrogen 58 mg/dL (8-26) Creatinine 1.7 mg/dL (0.7-1.3) Estimated GFR (Cockcroft-Gault) 39.0 Glucose Level 111 mg/dL (70-99) Calcium Level 8.8 mg/dL (8.5-10.1) Meds Current Medications Acetaminophen (Tylenol) 650 mg PRN Q6HRS PRN PO Headaches, Temp > 101.5F; Start 03/20/17 at 13:00 Apixaban (Eliquis) 2.5 mg BID PO Last administered on 03/20/17 21:15; Start 03/20/17 at 12:30 Aspirin (Ecotrin) 81 mg DAILY PO ; Start 03/21/17 at 09:00 Atorvastatin Calcium (Lipitor) 40 mg QHS PO Last administered on 03/20/17 21: 15; Start 03/20/17 at 21:00 Carvedilol (Coreg) 3.125 mg BIDWMEALS PO Last administered on 03/20/17 17:16; Start 03/20/17 at 17:00 Clopidogrel Bisulfate (Plavix) 75 mg DAILY PO ; Start 03/21/17 at 09:00 Dextrose (Dextrose 50%-Water Syringe) 12.5 gm PRN Q15MIN PRN IV SEE COMMENTS; Start 03/20/17 at 09:45 Dobutamine HCl/ Dextrose 250 ml @ 0 mls/hr CONT PRN IV SEE I/O RECORD Last administered on 03/20/17 13:55; Start 03/20/17 at 09:45 Fish Oil (Fish Oil) 1,000 mg DAILY PO ; Start 03/20/17 at 13:00 Furosemide (Lasix) 80 mg BID92 PO ; Start 03/20/17 at 14:00 Influenza Virus Vaccine Quadrival (Fluarix Quad 5430-1261 Syringe) 0.5 ml ONCE ONCE VAX IM ; Start 03/20/17 at 18:00; Stop 03/20/17 at 18:00; Status DC Info (Anti-Coagulation Monitoring By Pharmacy) 1 each PRN DAILY PRN MC SEE COMMENTS; Start 03/20/17 at 12:15 Info (Do NOT chart on this placeholder) 1 each 1X ONCE MC ; Start 03/20/17 at 11:45; Stop 03/20/17 at 11:46; Status UNV Insulin Aspart (NovoLOG) 0-5 UNITS TIDWMEALS SQ ; Start 03/20/17 at 12:00 Insulin Aspart (NovoLOG) 8 units 1X ONCE SQ Last administered on 03/20/17 13: 10; Start 03/20/17 at 12:15; Stop 03/20/17 at 12:16; Status DC Magnesium Hydroxide (Milk Of Magnesia) 2,400 mg PRN Q24HRS PRN PO CONSTIPATION ; Start 03/20/17 at 13:00 Magnesium Oxide (Magnesium Oxide) 400 mg BID PO Last administered on 03/20/17 21:15; Start 03/20/17 at 21:00 Metolazone (Zaroxolyn) 2.5 mg QODAY PO ; Start 03/22/17 at 09:00 Metoprolol Succinate (Toprol Xl) 50 mg DAILY PO ; Start 03/20/17 at 09:00 Montelukast Sodium (Singulair) 10 mg QHS PO Last administered on 03/20/17 21: 15; Start 03/20/17 at 21:00 Multivitamins (Thera M Plus) 1 tab DAILY PO ; Start 03/20/17 at 13:00 Nitroglycerin (Nitrostat) 0.4 mg PRN Q5MIN PRN SL CHEST PAIN; Start 03/20/17 at 13:00 Sacubitril/ Valsartan (Entresto 24 Mg-26 Mg) 1 tab BID PO Last administered on 03/20/17 21:15; Start 03/20/17 at 21:00 Sodium Chloride (Normal Saline Flush) 10 ml QSHIFT PRN IV AFTER MEDS AND BLOOD DRAWS; Start 03/20/17 at 13:00 Sodium Chloride (Normal Saline Flush) 20 ml QSHIFT PRN IV AFTER MEDS AND BLOOD DRAWS; Start 03/20/17 at 13:00 Spironolactone (Aldactone) 25 mg DAILY PO ; Start 03/20/17 at 13:00 Assessment Assessment 1. 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 2. A low cardiac output of only 20-30% of normal 3. ARF with CKD III no WILNER or ATN; due to diuretics 4. anemia chronic CKD 5. HTN 6. Coronary artery disease. with h/o stent/CABG 7. History of myocardial infarction.>8wk 7. Hyperlipidemia. 8. History of colon cancer with colon resection. 9. Diabetes mellitus type 2, not controlled. poor compliance with diet 10. AFchronic eliquis AICD 11. moderate pulmonary hypertension 12. COPD 13. valvulopathy- Mod MR TR Mild AR pulmonic regurg 14. pleural effusion R sided POA 03/21/17 CHF -- dobutamine infusion started. Limited ECHO pending (obtained off Dobutamine) CXR 03/20 vascular congestion with decrease pleural effusion -- RA sat 94% 03/21 weight 142.06 pleural effusion -- Eliquis and Plavix restarted 03/20, thoracentesis not required at admit. DM II not controlled BS 90-390 --Start trajenta 5mg daily ARF - Admit BUN/Cr 67/2.1 today 58/1.7 Dobutamine infusing --Lasix and Zaroxlyn on hold since admit MVR - planned appt at interventional radiology for evaluation DC instructions initiated Novolog SSI insulin at discharge --will need called to pharmacy --free text instruction to nursing and verbal today Will need trajenta 5mg added to discharge if tolerates HH note created - signature required 03/20/[address] Barraza for cardiology evaluation and management. The patient will be started on dobutamine drip. Continue other treatment. Check labs. I will order a chest x-ray. From here, the patient would like to go home rather than back to the assisted. Hopefully, he will be more compliant and keep his oxygen on, because without that he gets hypoxic and confused. For details, please refer to the orders. I will consult [facility] to set up home oxygen and any other help that he needs at home along with home health services. The patient will be in the hospital for about 3 days for IV dobutamine and will be discharged later to home For details, please review the orders Plan Plan For more details regarding further plans, please refer to the orders. TOM FOSTER MD 03/21/17 0938: PROGRESS NOTES- Assessment Assessment The patient was seen and examined by me. Chart reviewed and plan of care formulated. Discussed with, reviewed and agree with [facility]'s notes, plan of care and orders with modifications as necessary. For more details regarding further plans, please refer to the orders. NEVA LOONEY APRN Mar 21, 2017 08:26 TOM FOSTER MD Mar 21, 2017 09:38
--- NOTE | 2017-03-21 08:28 | DISCH ---
DISCHARGE WITH HOME HEALTH DISCHARGE INFORMATION: Condition on Discharge: Stable HOME HEALTH: Face to Face: I certify this patient is under my care and that my nurse practitioner working with me, had a face to face encounter that meets the physician face to face encounter requirements with this patient on [03/21/17]. Medical Condition(s): CHF Detention For: Assess/Skilled Observatio Physical Therapy For: Evalulation/Treatment Occupational Therapy For: Evaluation/Treatment Patient meets Homebound Statu: Limited distance walking FOLLOW-UP: Follow up with: Dr. Norris in 3 days after discharge CERTIFICATION STATEMENT: Certification Statement: Certification Statement: Based on the above finding, I certify that this patient is confined to the home and needs intermittent intermediate care, physical therapy and/or speech therapy, or continues to need occupational therapy.~ This patient is under my care, and I have initiated the establishment of the plan of care.~ This patient will be followed by myself or a community physician who will periodically review the plan of care. NEVA LOONEY APRN Mar 21, 2017 08:28
--- NOTE | 2017-03-21 08:31 | DISCH ---
DISCHARGE CONDITION ON DISCHARGE: Stable POST DISCHARGE ORDERS ACTIVITY ORDERS: Activity as tolerated WEIGHT BEARING STATUS: Full weight bearing DIET AFTER DISCHARGE: Cardiac (no concentrated sweets ) OTHER WOUND INSTRUCTIONS: PICC line care per protocol OTHER ORDERS: May draw lab from PICC if needed CHECKS AFTER DISCHARGE CHECKS AFTER DISCHARGE: Check blood sugar, ac/hs (Before meals ), Weigh Yourself Daily ([facility] office Wt >2# in 24 hr or >3# in 48 hours ) COMMENTS: Check blood pressure daily FOLLOW-UP PHYSICIAN FOLLOW-UP: Dr. Norris in 3 days after discharge ADDITIONAL FOLLOW-UP: Dr. Barraza per her instructions TREATMENT/EQUIPMENT ORDERS RESPIRATORY EQUIPMENT NEEDED: Oxygen (2L NC continuous concentrator and portable ) NEVA LOONEY APRN Mar 21, 2017 08:31
[2017-03-21] MEDS ORDERED: INSU100I17 SQ (08:36)
[2017-03-21] MEDS: FUROSEMIDE 80 MG TABLET. PO SCH (09:00)
[2017-03-21] MEDS: SACUBITRIL/VALSARTAN 24/26MG TABLET. PO SCH ×2 (09:08→20:18)
[2017-03-21] MEDS: CLOPIDOGREL BISULFATE 75 MG TABLET PO SCH (09:08)
[2017-03-21] MEDS: APIXABAN 2.5 MG TABLET. PO SCH ×2 (09:08→20:18)
[2017-03-21] MEDS: SPIRONOLACTONE 25 MG TABLET PO SCH (09:08)
[2017-03-21] MEDS: MAGNESIUM OXIDE 400 MG TABLET PO SCH ×2 (09:08→20:17)
[2017-03-21] MEDS: OMEGA-3 FATTY ACIDS/FISH OIL 1,000 MG CAPSULE. PO SCH (09:08)
[2017-03-21] MEDS: MULTIVITAMIN with MINERAL TABLET. PO SCH (09:09)
[2017-03-21] MEDS: METOPROLOL SUCC 24HR ER 50 MG TAB.ER.24H. PO SCH (09:09)
[2017-03-21] MEDS: CARVEDILOL 3.125 MG TABLET. PO SCH ×2 (09:09→17:49)
[2017-03-21] MEDS: ASPIRIN ENTERIC COATED 81 MG TABLET.DR. PO SCH (09:10)
[2017-03-21] MEDS: LINAGLIPTIN 5 MG TABLET PO SCH (09:10)
[2017-03-21] MEDS ORDERED: FUROSEMIDE 80 MG TABLET. PO ONE (11:15)
[2017-03-21] MEDS: MONTELUKAST SODIUM 10 MG TABLET. PO SCH (20:17)
[2017-03-21] MEDS: ATORVASTATIN CALCIUM 40 MG TABLET. PO SCH (20:17)
--- NOTE | 2017-03-21 21:04 | PDOC ---
Provider Note Provider Note No complaints of shortness of breath. The O2 saturation on room air was 93%. He walked for 6 mins. . At 4 minutes the oxygen saturation dropped to 85%. Ultimately placed on 4 L/m of oxygen and he felt better with oxygen saturation remaining above 90%. No edema of the legs. Lungs are clear. Creatinine is 1.7. The stroke volume output was adequate even before initiating dobutamine. Will check again tomorrow. Okay with me to discontinue discontinue dobutamine and discharge tomorrow. We will follow him as an outpatient. Will not need to have a dobutamine every month. but only if and when he shows signs of a low cardiac output Discussed with social insurance specialist and informed him that patient is requesting a portable concentrator. Will try to get him a portable concentrator rather than with small oxygen tanks or portable conservator. MELINDA FORTUNE MD Mar 21, 2017 21:04
[2017-03-22 03:05] VITALS: BP 102/57
[2017-03-22 05:16] LABS: BASO # 0.1 x10^3/uL (0.0-0.2); BASO % 1 % (0-3); EOS % 4 % (0-3); HEMATOCRIT 29.8 % (39.0-53.0); HEMOGLOBIN 9.4 g/dL (13.0-17.5); LYMPH # 1.2 x10^3/uL (1.0-4.8); LYMPH % 16 % (24-48); MEAN CORPUSCULAR HEMOGLOBIN 26 pg (25-35); MEAN CORPUSCULAR HGB CONC 32 g/dL (31-37); MEAN CORPUSCULAR VOLUME 81 fL (79-100); MONO % 11 % (0-9); NEUT % 69 % (31-73); PLATELET COUNT 223 x10^3/uL (140-400); RED BLOOD COUNT 3.66 x10^6/uL (4.30-5.70); WHITE BLOOD COUNT 7.6 x10^3/uL (4.0-11.0)
[2017-03-22 05:29] LABS: CREATININE 1.8 mg/dL (0.7-1.3); GFR 36.5; MAGNESIUM 2.2 mg/dL (1.8-2.4)
[2017-03-22 07:00] VITALS: BP 112/60
--- NOTE | 2017-03-22 08:32 | PDOC3 ---
AURENEVA FREIGHT BROKER AGENT 03/22/17 0832: IM DISCHARGE & PROGRESS NOTES Date of Admission Date of Admission Date of Admission: Mar 20, 2017 at 08:41 Date of Discharge Date of Discharge 03/22/17 Primary Diagnosis Primary Diagnosis Assessment 1. 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 2. A low cardiac output of only 20-30% of normal 3. ARF with CKD III no WILNER or ATN; due to diuretics 4. anemia chronic CKD 5. HTN 6. Coronary artery disease. with h/o stent/CABG 7. History of myocardial infarction.>8wk 7. Hyperlipidemia. 8. History of colon cancer with colon resection. 9. Diabetes mellitus type 2, not controlled. poor compliance with diet 10. AFchronic eliquis AICD 11. moderate pulmonary hypertension 12. COPD 13. valvulopathy- Mod MR TR Mild AR pulmonic regurg 14. pleural effusion R sided POA Consults Consults Deisy Barraza MD Procedures Procedures Power PICC 03/20/17 inserted Labs Labs Laboratory Tests Test 03/20/17 10:14 03/20/17 10:45 03/20/17 16:04 03/20/17 20:48 Glucose (Fingerstick) 349 mg/dL (70-99) 90 mg/dL (70-99) 158 mg/dL (70-99) White Blood Count 7.3 x10^3/uL (4.0-11.0) Red Blood Count 3.84 x10^6/uL (4.30-5.70) Hemoglobin 9.9 g/dL (13.0-17.5) Hematocrit 31.5 % (39.0-53.0) Mean Corpuscular Volume 82 fL (79-100) Mean Corpuscular Hemoglobin 26 pg (25-35) Mean Corpuscular Hemoglobin Concent 31 g/dL (31-37) Red Cell Distribution Width 20.6 % (11.5-14.5) Platelet Count 237 x10^3/uL (140-400) Neutrophils (%) (Auto) 77 % (31-73) Lymphocytes (%) (Auto) 12 % (24-48) Monocytes (%) (Auto) 7 % (0-9) Eosinophils (%) (Auto) 3 % (0-3) Basophils (%) (Auto) 1 % (0-3) Neutrophils # (Auto) 5.6 x10^3uL (1.8-7.7) Lymphocytes # (Auto) 0.9 x10^3/uL (1.0-4.8) Monocytes # (Auto) 0.5 x10^3/uL (0.0-1.1) Eosinophils # (Auto) 0.2 x10^3/uL (0.0-0.7) Basophils # (Auto) 0.1 x10^3/uL (0.0-0.2) Platelet Estimate Adequate (ADEQUATE) Poikilocytosis Present Basophilic Stippling Present Anisocytosis Present Sodium Level 136 mmol/L (136-145) Potassium Level 3.9 mmol/L (3.5-5.1) Chloride Level 96 mmol/L (98-107) Carbon Dioxide Level 36 mmol/L (21-32) Anion Gap 4 (6-14) Blood Urea Nitrogen 67 mg/dL (8-26) Creatinine 2.1 mg/dL (0.7-1.3) Estimated GFR (Cockcroft-Gault) 30.5 BUN/Creatinine Ratio 32 (6-20) Glucose Level 390 mg/dL (70-99) Calcium Level 8.8 mg/dL (8.5-10.1) Total Bilirubin 0.4 mg/dL (0.2-1.0) Aspartate Amino Transf (AST/SGOT) 17 U/L (15-37) Alanine Aminotransferase (ALT/SGPT) 24 U/L (16-63) Alkaline Phosphatase 108 U/L (46-116) Total Protein 7.7 g/dL (6.4-8.2) Albumin 3.4 g/dL (3.4-5.0) Albumin/Globulin Ratio 0.8 (1.0-1.7) Test 03/21/17 04:14 03/21/17 07:28 03/21/17 11:41 03/21/17 16:43 White Blood Count 9.0 x10^3/uL (4.0-11.0) Red Blood Count 3.52 x10^6/uL (4.30-5.70) Hemoglobin 9.3 g/dL (13.0-17.5) Hematocrit 28.5 % (39.0-53.0) Mean Corpuscular Volume 81 fL (79-100) Mean Corpuscular Hemoglobin 27 pg (25-35) Mean Corpuscular Hemoglobin Concent 33 g/dL (31-37) Red Cell Distribution Width 20.3 % (11.5-14.5) Platelet Count 226 x10^3/uL (140-400) Neutrophils (%) (Auto) 70 % (31-73) Lymphocytes (%) (Auto) 16 % (24-48) Monocytes (%) (Auto) 10 % (0-9) Eosinophils (%) (Auto) 3 % (0-3) Basophils (%) (Auto) 1 % (0-3) Neutrophils # (Auto) 6.3 x10^3uL (1.8-7.7) Lymphocytes # (Auto) 1.5 x10^3/uL (1.0-4.8) Monocytes # (Auto) 0.9 x10^3/uL (0.0-1.1) Eosinophils # (Auto) 0.3 x10^3/uL (0.0-0.7) Basophils # (Auto) 0.1 x10^3/uL (0.0-0.2) Nasal Screen MRSA (PCR) Positive (Negative) Sodium Level 136 mmol/L (136-145) Potassium Level 3.7 mmol/L (3.5-5.1) Chloride Level 98 mmol/L (98-107) Carbon Dioxide Level 33 mmol/L (21-32) Anion Gap 5 (6-14) Blood Urea Nitrogen 58 mg/dL (8-26) Creatinine 1.7 mg/dL (0.7-1.3) Estimated GFR (Cockcroft-Gault) 39.0 Glucose Level 111 mg/dL (70-99) Calcium Level 8.8 mg/dL (8.5-10.1) Glucose (Fingerstick) 112 mg/dL (70-99) 204 mg/dL (70-99) 101 mg/dL (70-99) Test 03/21/17 20:32 03/22/17 04:55 03/22/17 07:52 Glucose (Fingerstick) 189 mg/dL (70-99) 110 mg/dL (70-99) White Blood Count 7.6 x10^3/uL (4.0-11.0) Red Blood Count 3.66 x10^6/uL (4.30-5.70) Hemoglobin 9.4 g/dL (13.0-17.5) Hematocrit 29.8 % (39.0-53.0) Mean Corpuscular Volume 81 fL (79-100) Mean Corpuscular Hemoglobin 26 pg (25-35) Mean Corpuscular Hemoglobin Concent 32 g/dL (31-37) Red Cell Distribution Width 20.0 % (11.5-14.5) Platelet Count 223 x10^3/uL (140-400) Neutrophils (%) (Auto) 69 % (31-73) Lymphocytes (%) (Auto) 16 % (24-48) Monocytes (%) (Auto) 11 % (0-9) Eosinophils (%) (Auto) 4 % (0-3) Basophils (%) (Auto) 1 % (0-3) Neutrophils # (Auto) 5.3 x10^3uL (1.8-7.7) Lymphocytes # (Auto) 1.2 x10^3/uL (1.0-4.8) Monocytes # (Auto) 0.8 x10^3/uL (0.0-1.1) Eosinophils # (Auto) 0.3 x10^3/uL (0.0-0.7) Basophils # (Auto) 0.1 x10^3/uL (0.0-0.2) Sodium Level 136 mmol/L (136-145) Potassium Level 4.0 mmol/L (3.5-5.1) Chloride Level 99 mmol/L (98-107) Carbon Dioxide Level 34 mmol/L (21-32) Anion Gap 3 (6-14) Blood Urea Nitrogen 55 mg/dL (8-26) Creatinine 1.8 mg/dL (0.7-1.3) Estimated GFR (Cockcroft-Gault) 36.5 Glucose Level 107 mg/dL (70-99) Calcium Level 9.0 mg/dL (8.5-10.1) Magnesium Level 2.2 mg/dL (1.8-2.4) Medications Medications Medications reviewed and reconciled for discharge. Brief hospital course Brief hospital course This 81 year old Caucasin male who presented with acute on chronic CHF was admitted. The following is a summary of his treatment: 03/22/17 CHF --DC dobutamine infusion today -Dr. Barraza to order. Wt stable 142# -- Restart Lasix 80mg bid and Zaroxolyn at DC. DM - BS 101-204 - continue Trajenta 5mg daily and SSI at home CKD III - BUN 55 Cr 1.8 monitor out patient MVR - out patient appt with interventional radiology DC orders for home reviewed and reconciled - trajenta added to meds and faxed. 03/21/17 CHF -- dobutamine infusion started. Limited ECHO pending (obtained off Dobutamine) CXR 03/20 vascular congestion with decrease pleural effusion -- RA sat 94% 03/21 weight 142.06 pleural effusion -- Eliquis and Plavix restarted 03/20, thoracentesis not required at admit. DM II not controlled BS 90-390 --Start trajenta 5mg daily ARF - Admit BUN/Cr 67/2.1 today 58/1.7 Dobutamine infusing --Lasix and Zaroxlyn on hold since admit MVR - planned appt at interventional radiology for evaluation DC instructions initiated Novolog SSI insulin at discharge --will need called to pharmacy --free text instruction to nursing and verbal today Will need trajenta 5mg added to discharge if tolerates HH note created - signature required 03/20/[address] Barraza for cardiology evaluation and management. The patient will be started on dobutamine drip. Continue other treatment. Check labs. I will order a chest x-ray. From here, the patient would like to go home rather than back to the care home. Hopefully, he will be more compliant and keep his oxygen on, because without that he gets hypoxic and confused. For details, please refer to the orders. I will consult [employer] to set up home oxygen and any other help that he needs at home along with home health services. The patient will be in the hospital for about 3 days for IV dobutamine and will be discharged later to home For details, please review the orders For more details regarding the past history, family history, social history, surgical history and other details, please refer to History and Physical. Subjective Denies shortness of breath Objective alert, no distress Vitals Vital Signs Date Time Temp Pulse Resp B/P (MAP) Pulse Ox O2 Delivery O2 Flow Rate FiO2 03/22/17 07:50 Nasal Cannula 2.0 03/22/17 07:00 97.6 60 16 112/60 (27) 97 97.6 Physical Exam General appearance - alert,well appearing, and in no distress Mental Status - alert, oriented to person, place, and time, affect appropriate to mood Head - normal Chest - clear to auscultation, no wheezes, rales or rhonchi, symmetric air entry Heart - S1 and S2 normal Abdomen - soft, nontender, nondistended, no masses or organomegaly Neurological - negative acute focal neurological defect Musculoskeletal - no muscular tenderness noted Extremities - no pedal edema Skin - warm and dry Medications Medications reviewed. Allergy Allergies Coded Allergies Type Severity Reaction Last Updated Verified No Known Drug Allergies 07/05/15 No Follow up Saturday with Dr. Foster Disposition: Home health services (PT OT ) Comments Discharge Management - 35 minutes. For other details please refer to discharge instructions TOM FOSTER MD 03/22/17 0928: IM DISCHARGE & PROGRESS NOTES Brief hospital course Comments The patient was seen and examined by me. Chart reviewed and plan of care formulated. Discussed with, reviewed and agree with [facility]'s notes, plan of care and orders with modifications as necessary. Discharge Management - 35 minutes. NEVA LOONEY APRN Mar 22, 2017 08:32 TOM FOSTER MD Mar 22, 2017 09:28
[2017-03-22] MEDS ORDERED: LINA5TAB4 PO (08:33)
[2017-03-22] MEDS ORDERED: FUROSEMIDE 80 MG TABLET. PO SCH (09:00)
[2017-03-22] MEDS ORDERED: metOLazone 2.5 MG TABLET PO SCH (09:00)
[2017-03-22] MEDS: INSULIN ASPART 300 UNITS/3 ML INSULN.PEN SQ SCH (09:15)
[2017-03-22] MEDS: OMEGA-3 FATTY ACIDS/FISH OIL 1,000 MG CAPSULE. PO SCH (09:16)
[2017-03-22] MEDS: MULTIVITAMIN with MINERAL TABLET. PO SCH (09:16)
[2017-03-22] MEDS: ASPIRIN ENTERIC COATED 81 MG TABLET.DR. PO SCH (09:17)
[2017-03-22] MEDS: MAGNESIUM OXIDE 400 MG TABLET PO SCH (09:17)
[2017-03-22] MEDS: APIXABAN 2.5 MG TABLET. PO SCH (09:17)
[2017-03-22] MEDS: CLOPIDOGREL BISULFATE 75 MG TABLET PO SCH (09:18)
[2017-03-22] MEDS: LINAGLIPTIN 5 MG TABLET PO SCH (09:18)
[2017-03-22] MEDS: CARVEDILOL 3.125 MG TABLET. PO SCH (09:18)
[2017-03-22] MEDS: SPIRONOLACTONE 25 MG TABLET PO SCH (09:19)
[2017-03-22] MEDS: METOPROLOL SUCC 24HR ER 50 MG TAB.ER.24H. PO SCH (09:19)
[2017-03-22 09:20] VITALS: BP 112/60
[2017-03-22] MEDS: SACUBITRIL/VALSARTAN 24/26MG TABLET. PO SCH (09:20)
--- NOTE | 2017-03-26 12:05 | CARD ---
APPROVED REPORT EXAM: Two-dimensional and M-mode echocardiogram with Doppler and color Doppler. Other Information Quality : Average INDICATION LIMITED ECHO FOR MAT 2D DIMENSIONS LVOT Diameter2.1 (1.8-2.4cm)SV1.0 ml CO0.1 L/min Aortic Valve AoV Peak Harris.215.1cm/sAoV VTI40.4cm AO Peak GR.18.5mmHgLVOT Peak Harris.120.8cm/s LVOT VTI 25.45cmAO Mean GR.9mmHg MAT (VMAX)1.81oy0LJA (VTI)2.14cm2 LEFT VENTRICLE N/A AORTIC VALVE N/A MITRAL VALVE N/A TRICUSPID VALVE N/A PULMONIC VALVE N/A GREAT VESSELS N/A PERICARDIAL EFFUSION N/A Critical Notification Critical Value: No <Conclusion> This was a limited echocardiogram today to calculate volume and the cardiac output after having been on dobutamine. Stroke volume was 87.98 mL. Cardiac output was 6.62 L/m.
--- NOTE | 2017-03-26 12:08 | CARD ---
APPROVED REPORT EXAM: LIMITED Two-dimensional echocardiogram with Doppler Other Information Quality : Average Rhythm : NSR INDICATION Cardiac output and stroke volume evaluation 2D DIMENSIONS Left Atrium(2D)4.2 (1.6-4.0cm)IVSd1.4 (0.7-1.1cm) Aortic Root(2D)2.6 (2.0-3.7cm)LVDd5.6 (3.9-5.9cm) LVOT Diameter2.3 (1.8-2.4cm)PWd1.3 (0.7-1.1cm) LVDs5.3 (2.5-4.0cm)FS (%) 6.0 % SV1.0 mlLVEF(%)13.2 (>50%) CO0.1 L/min Aortic Valve LVOT Peak Harris.104.9cm/s LEFT VENTRICLE The left ventricle is normal size. There is mild concentric left ventricular hypertrophy. Left ventri charlene systolic function is severely impaired. The Ejection Fraction is 10-15%. Stroke volume calculated at 1.0 with Cardiac output 0.1 L/min. There is global hypokinesis of the left ventricle. ATRIA The left atrium is borderline dilated. AORTIC VALVE N/A MITRAL VALVE N/A TRICUSPID VALVE N/A PULMONIC VALVE N/A GREAT VESSELS The aortic root is normal in size. PERICARDIAL EFFUSION There is no evidence of significant pericardial effusion. Critical Notification Critical Value: No <Conclusion> Limited echocardiogram was performed to valuate the stroke volume and cardiac output prior to initia ting dobutamine. The stroke volume was 72 mL. Yhe cardiac output output was 5.45 L/m.
== END 2017-03-22 12:00 | disposition home health service (06) | DRG 682 ==
LOC: 2 SOUTH 08:41
PROVIDERS: ADMIT Internal Medicine; ATTEND Internal Medicine
PROC: 02HV33Z Insertion of Infusion Device into Superior Vena Cava, Percutaneous Approach (ICD-10-PCS; principal; 2017-03-20)
DX: N17.9 Acute kidney failure, unspecified (principal); I50.43 Acute on chronic combined systolic (congestive) and diastolic (congestive) heart failure; E11.22 Type 2 diabetes mellitus with diabetic chronic kidney disease; E11.65 Type 2 diabetes mellitus with hyperglycemia; I13.0 Hypertensive heart and chronic kidney disease with heart failure and stage 1 through stage 4 chronic kidney disease, or unspecified chronic kidney disease; I25.5 Ischemic cardiomyopathy; I25.10 Atherosclerotic heart disease of native coronary artery without angina pectoris; D64.9 Anemia, unspecified; E78.5 Hyperlipidemia, unspecified; N18.3 Chronic kidney disease, stage 3 (moderate); I25.2 Old myocardial infarction; I34.0 Nonrheumatic mitral (valve) insufficiency; I37.1 Nonrheumatic pulmonary valve insufficiency; I48.91 Unspecified atrial fibrillation; J44.9 Chronic obstructive pulmonary disease, unspecified; R09.02 Hypoxemia; Z82.49 Family history of ischemic heart disease and other diseases of the circulatory system; Z85.038 Personal history of other malignant neoplasm of large intestine; Z83.3 Family history of diabetes mellitus; Z87.891 Personal history of nicotine dependence; Z95.1 Presence of aortocoronary bypass graft; Z95.5 Presence of coronary angioplasty implant and graft; Z95.810 Presence of automatic (implantable) cardiac defibrillator; Z99.81 Dependence on supplemental oxygen; Z90.49 Acquired absence of other specified parts of digestive tract; T50.2X5A Adverse effect of carbonic-anhydrase inhibitors, benzothiadiazides and other diuretics, initial encounter
CPT/HCPCS: 36415; 36569; 71010; 71020; 80048; 80053; 82962; 83735; 85025; 87641; 93308; 93320; 94620; J1250; J1815

== ENCOUNTER → 2017-03-28 | Outpatient (CLI) | payer MEDICARE ==
[2017-03-22 09:20] VITALS: BP 112/60
[~2017-03-28] MED LIST changes: +INSU100I17 SQ; +LINA5TAB4 PO; +POTA20TA82 PO
[2017-03-28 11:17] LABS: CALCIUM 9.4 mg/dL (8.5-10.1); CREATININE 2.4 mg/dL (0.7-1.3); GFR 26.2; POTASSIUM 4.9 mmol/L (3.5-5.1)
== END | disposition home or self-care (01) ==
LOC: SPEC 10:08
PROVIDERS: ATTEND Internal Medicine
DX: I50.9 Heart failure, unspecified (principal)
CPT/HCPCS: 36415; 80048

== ENCOUNTER 2017-05-09 22:04 | Inpatient (IN) | payer MEDICARE ==
[~2017-05-09] VITALS: Ht 165.1 cm; Wt 66.2 kg
[~2017-05-09 22:04] MED LIST changes: -POTA20TA82 PO
[2017-05-09] MEDS ORDERED: NITROGLYCERIN SUBLINGUAL 0.4 MG BOTTLE OF 25. SL ONE (22:12)
[2017-05-09] MEDS: NITROGLYCERIN SUBLINGUAL 0.4 MG BOTTLE OF 25. SL PRN ×2 (22:15→22:20)
[2017-05-09 22:27] LABS: BASO # 0.1 x10^3/uL (0.0-0.2); BASO % 1 % (0-3); EOS % 2 % (0-3); HEMATOCRIT 39.3 % (39.0-53.0); HEMOGLOBIN 12.6 g/dL (13.0-17.5); LYMPH # 4.3 x10^3/uL (1.0-4.8); LYMPH % 24 % (24-48); MEAN CORPUSCULAR HEMOGLOBIN 28 pg (25-35); MEAN CORPUSCULAR HGB CONC 32 g/dL (31-37); MEAN CORPUSCULAR VOLUME 87 fL (79-100); MONO % 8 % (0-9); NEUT % 65 % (31-73); PLATELET COUNT 313 x10^3/uL (140-400); RED BLOOD COUNT 4.53 x10^6/uL (4.30-5.70); RED CELL DISTRIBUTION WIDTH 19.3 % (11.5-14.5); WHITE BLOOD COUNT 18.1 x10^3/uL (4.0-11.0)
[2017-05-09] MEDS ORDERED: FUROSEMIDE 40 MG/4 ML VIAL. IVP ONE (22:30)
[2017-05-09] MEDS ORDERED: NITROGLYCERIN PREMIX 250 ML IV ONE (22:30)
[2017-05-09 22:36] LABS: INR 1.1 (0.8-1.1); PROTHROMBIN TIME PATIENT 13.9 SEC (11.7-14.0)
[2017-05-09 22:38] LABS: CALCIUM 9.1 mg/dL (8.5-10.1); CREATININE 1.9 mg/dL (0.7-1.3); GFR 34.3; POTASSIUM 4.1 mmol/L (3.5-5.1)
[2017-05-09] MEDS ORDERED: ONDANSETRON PF 4 MG/2 ML VIAL. IV PRN (22:45)
[2017-05-09 22:52] LABS: ALBUMIN 3.9 g/dL (3.4-5.0); ALBUMIN/GLOBULIN RATIO 0.8 (1.0-1.7); MAGNESIUM 2.3 mg/dL (1.8-2.4); TOTAL BILIRUBIN 0.6 mg/dL (0.2-1.0); TOTAL PROTEIN 9.1 g/dL (6.4-8.2)
[2017-05-09 23:34] LABS: HCO3 ABG 22 mmol/L (21-28); PCO2 ABG 38 mmHg (35-46); PH ABG 7.38 (7.35-7.45); PO2 ABG 88 mmHg (65-108); SAT O2 ABG 96 % (92-99)
--- NOTE | 2017-05-09 23:36 | PHYS DOC ---
Past Medical History Past Medical History: CAD, Cancer, CHF, COPD, Diabetes-Type II, High Cholesterol, Hypertension Additional Past Medical Histor: CARDIOMYOPATHY COLON CANCER WITH CHEMO Past Surgical History: Cancer Surgery, Cholecystectomy, Pacemaker Additional Past Surgical Histo: PACER/DEFIB. cabg X 2 Alcohol Use: None Drug Use: None Adult General Chief Complaint Chief Complaint: SHORTNESS OF BREATH HPI HPI Patient is a 81 year old male presenting to the emergency department via EMS for evaluation of sudden worsening shortness of breath that started 2 hours prior to arrival. Has known advanced congestive heart failure and follows with Dr. Prime Gregg and gets monthly infusions of dobutamine. His last infusion was approximately 1-1/2 months ago. Patient has not been having a productive cough fevers chills nausea or vomiting. His family admits that he did eat a good Thanksgiving meal and thinks that he may have had more salt intake the patient feels that he did not eat that much salt. He appears quite ill initially as he is reading 30 times a minute with an auction saturation of 70% on nonrebreather with elevated blood pressure at 160/115. Review of Systems Review of Systems Unable to obtain full review of systems due to medical condition and shortness of breath. Current Medications Current Medications Current Medications Medications (Trade) Dose Ordered Sig/Carter Start Time Stop Time Status Last Admin Dose Admin Ceftriaxone Sodium 1 gm/ Dextrose 50 ml @ 100 mls/hr 1X STAT 05/09/17 22:29 05/09/17 22:58 UNV Furosemide (Lasix) 40 mg 1X ONCE 05/09/17 22:30 05/09/17 22:31 DC 05/09/17 22:29 40 MG Nitroglycerin (Nitrostat) 0.4 mg PRN Q5MIN PRN 05/09/17 22:15 Nitroglycerin/ Dextrose 250 ml @ 0 mls/hr 1X ONCE 05/09/17 22:30 05/09/17 22:31 DC 05/09/17 22:30 3 MLS/HR Allergies Allergies Allergies Coded Allergies Type Severity Reaction Last Updated Verified I S O L A T I O N *CONTACT* Allergy Unknown 03/25/17 Yes No Known Medication Allergies Allergy Unknown 03/25/17 Yes Physical Exam Physical Exam Constitutional: Ill-appearing and in severe respiratory distress HENT: Normocephalic, atraumatic, bilateral external ears normal, oropharynx moist, no oral exudates, nose normal. [] Eyes: PERRLA, EOMI, conjunctiva normal, no discharge. [] Neck: Normal range of motion, no tenderness, supple, no stridor. [] Cardiovascular:Heart rate regular rhythm but tachycardic Lungs & Thorax: Bilateral breath sounds diminished with crackles in all lung leon Abdomen: Bowel sounds normal, soft, no tenderness, no masses, no pulsatile masses. [] Skin: Warm, dry, no erythema, no rash. [] Back: No tenderness, no CVA tenderness. [] Extremities: No tenderness, no cyanosis, no clubbing, ROM intact, 1+ edema. [] Neurologic: Alert and oriented X 3, moves all extremities Current Patient Data Vital Signs Vital Signs Date Time Temp Pulse Resp B/P (MAP) Pulse Ox O2 Delivery O2 Flow Rate FiO2 05/09/17 22:27 94 05/09/17 22:04 98.6 117 31 166/104 (124) Nasal Cannula 4.0 98.6 Lab Values Laboratory Tests Test 05/09/17 22:17 White Blood Count 18.1 x10^3/uL (4.0-11.0) H Red Blood Count 4.53 x10^6/uL (4.30-5.70) Hemoglobin 12.6 g/dL (13.0-17.5) L Hematocrit 39.3 % (39.0-53.0) Mean Corpuscular Volume 87 fL (79-100) Mean Corpuscular Hemoglobin 28 pg (25-35) Mean Corpuscular Hemoglobin Concent 32 g/dL (31-37) Red Cell Distribution Width 19.3 % (11.5-14.5) H Platelet Count 313 x10^3/uL (140-400) Neutrophils (%) (Auto) 65 % (31-73) Lymphocytes (%) (Auto) 24 % (24-48) Monocytes (%) (Auto) 8 % (0-9) Eosinophils (%) (Auto) 2 % (0-3) Basophils (%) (Auto) 1 % (0-3) Neutrophils # (Auto) 11.8 x10^3uL (1.8-7.7) H Lymphocytes # (Auto) 4.3 x10^3/uL (1.0-4.8) Monocytes # (Auto) 1.5 x10^3/uL (0.0-1.1) H Eosinophils # (Auto) 0.4 x10^3/uL (0.0-0.7) Basophils # (Auto) 0.1 x10^3/uL (0.0-0.2) Prothrombin Time 13.9 SEC (11.7-14.0) Prothrombin Time INR 1.1 (0.8-1.1) PTT 28 SEC (24-38) Sodium Level 136 mmol/L (136-145) Potassium Level 4.1 mmol/L (3.5-5.1) Chloride Level 100 mmol/L (98-107) Carbon Dioxide Level 22 mmol/L (21-32) Anion Gap 14 (6-14) Blood Urea Nitrogen 45 mg/dL (8-26) H Creatinine 1.9 mg/dL (0.7-1.3) H Estimated GFR (Cockcroft-Gault) 34.3 BUN/Creatinine Ratio 24 (6-20) H Glucose Level 229 mg/dL (70-99) H Lactic Acid Level 3.7 mmol/L (0.4-2.0) H Calcium Level 9.1 mg/dL (8.5-10.1) Magnesium Level 2.3 mg/dL (1.8-2.4) Total Bilirubin 0.6 mg/dL (0.2-1.0) Aspartate Amino Transferase (AST) 20 U/L (15-37) Alanine Aminotransferase (ALT) 20 U/L (16-63) Alkaline Phosphatase 110 U/L (46-116) Troponin I Quantitative 0.027 ng/mL (0.000-0.055) XG-Vdk-Y-Type Natriuretic Peptide 2387 pg/mL (0-449) H Total Protein 9.1 g/dL (6.4-8.2) H Albumin 3.9 g/dL (3.4-5.0) Albumin/Globulin Ratio 0.8 (1.0-1.7) L Laboratory Tests 05/09/17 22:17 Laboratory Tests 05/09/17 22:17 EKG EKG Sinus tachycardia at 120 beats per minutes with leftward axis nonspecific interventricular conduction delay with slightly prolonged QTC and inverted T waves in his lateral leads. No Obvious STEMI morphology. Radiology/Procedures Radiology/Procedures Chest x-ray shows normal mediastinum with cardiomegaly and diffuse interstitial edema with possible infiltrate in left upper lobe and right lower lobe but overall picture is most consistent with flash pulmonary edema Course & Med Decision Making Course & Med Decision Making Patient in obvious flash pulmonary edema and he was started on BiPAP and nitroglycerin sublingual and then drip. Spoke to primary care provider Dr. Norris and he agreed to admit patient to the ICU. He asked me to consult Dr. Stokes and Dr. Stokes agreed to see the patient and he asked me to start patient on dobutamine drip at 5 mics per kilo per minute in addition to the nitroglycerin drip. He shouldn't improve clinically quite dramatically as he is satting 93% on the BiPAP with no respiratory distress and able to speak in some sentences. Patient admitted to the ICU in guarded condition Critical care time of 40 minutes. Dragon Disclaimer Dragon Disclaimer This electronic medical record was generated, in whole or in part, using a voice recognition dictation system. Departure Departure Impression: Primary Impression: Pulmonary edema Additional Impressions: CHF exacerbation SOB (shortness of breath) Hypertension Leukocytosis Lactic acidosis Renal insufficiency Disposition: ADMITTED INPATIENT Admitting Physician: Tom Norris Condition: GUARDED Referrals: TOM NORRIS MD (PCP) Problem Qualifiers Primary Impression: Pulmonary edema Chronicity: acute Qualified Codes: J81.0 - Acute pulmonary edema REGINA EARLY DO May 09, 2017 23:36
[2017-05-10] VITALS (26 sets, daily range): BP systolic 90–118; BP diastolic 51–75
[2017-05-10 00:49] LABS: BILIRUBIN,URINE NEGATIVE (NEG); GLUCOSE,URINE NEGATIVE (NEG); NITRITE,URINE NEGATIVE (NEG); PH,URINE 5.5; PROTEIN,URINE NEGATIVE (NEG-TRACE); UROBILINOGEN,URINE 0.2 mg/dL (0.2 mg/dL)
[2017-05-10 00:54] LABS: BACTERIA,URINE 0 /HPF (0-FEW); RBC,URINE 0 /HPF (0-2); SQUAMOUS EPITHELIAL CELL,UR OCC /LPF; WBC,URINE 0 /HPF (0-4)
[2017-05-10] MEDS ORDERED: cefTRIAXone IV Push 1 GM VIAL. IVP ONE (01:00)
[2017-05-10] MEDS ORDERED: FURO40TA4 PO (01:44)
[2017-05-10] MEDS ORDERED: NITROGLYCERIN SUBLINGUAL 0.4 MG BOTTLE OF 25. SL PRN (01:45)
[2017-05-10] MEDS ORDERED: MAGNESIUM HYDROXIDE 2,400 MG/30 ML ORAL.SUSP. PO PRN (01:45)
[2017-05-10] MEDS ORDERED: ACETAMINOPHEN 325 MG TABLET. PO PRN ×2 (01:45→11:30)
[2017-05-10] MEDS ORDERED: POTA20TA82 PO (01:52)
[2017-05-10] MEDS: ANTI-COAG MONITOR BY PHARMACY. MC PRN ×2 (03:04→14:08)
[2017-05-10 05:02] LABS: BASO # 0.1 x10^3/uL (0.0-0.2); BASO % 1 % (0-3); EOS % 0 % (0-3); HEMATOCRIT 31.5 % (39.0-53.0); HEMOGLOBIN 10.2 g/dL (13.0-17.5); LYMPH # 0.7 x10^3/uL (1.0-4.8); LYMPH % 5 % (24-48); MEAN CORPUSCULAR HEMOGLOBIN 28 pg (25-35); MEAN CORPUSCULAR HGB CONC 32 g/dL (31-37); MEAN CORPUSCULAR VOLUME 86 fL (79-100); MONO % 6 % (0-9); NEUT % 89 % (31-73); PLATELET COUNT 182 x10^3/uL (140-400); RED BLOOD COUNT 3.66 x10^6/uL (4.30-5.70); RED CELL DISTRIBUTION WIDTH 19.7 % (11.5-14.5); WHITE BLOOD COUNT 13.6 x10^3/uL (4.0-11.0)
[2017-05-10 05:18] LABS: CALCIUM 8.7 mg/dL (8.5-10.1); CREATININE 1.9 mg/dL (0.7-1.3); GFR 34.3; POTASSIUM 4.3 mmol/L (3.5-5.1)
--- NOTE | 2017-05-10 08:09 | RAD ---
EXAM: Chest one view. HISTORY: Shortness of breath. COMPARISON: 03/20/2017. FINDINGS: A frontal view of the chest is obtained. A left-sided pacemaker/defibrillator has its leads in the right atrium, right ventricle and a left cardiac vein. There are changes of coronary artery bypass grafting. Diffuse interstitial and airspace opacities are consistent with moderate pulmonary edema. There are small bilateral pleural effusions. There is no pneumothorax. The heart is mildly enlarged. IMPRESSION: 1. Moderate pulmonary edema, small bilateral pleural effusions and mild cardiomegaly.
[2017-05-10] MEDS: FUROSEMIDE 40 MG TABLET. PO SCH ×2 (08:12→16:47)
[2017-05-10] MEDS: MULTIVITAMIN with MINERAL TABLET. PO SCH (08:13)
[2017-05-10] MEDS: SACUBITRIL/VALSARTAN 24/26MG TABLET. PO SCH ×2 (08:13→20:56)
[2017-05-10] MEDS: SPIRONOLACTONE 25 MG TABLET PO SCH (08:13)
[2017-05-10] MEDS: LINAGLIPTIN 5 MG TABLET PO SCH (08:13)
[2017-05-10] MEDS: OMEGA-3 FATTY ACIDS/FISH OIL 1,000 MG CAPSULE. PO SCH (08:13)
[2017-05-10] MEDS: MAGNESIUM OXIDE 400 MG TABLET PO SCH ×2 (08:13→20:55)
[2017-05-10] MEDS: CLOPIDOGREL BISULFATE 75 MG TABLET PO SCH (08:13)
[2017-05-10] MEDS: APIXABAN 5 MG TABLET. PO SCH ×2 (08:13→20:56)
[2017-05-10] MEDS: CARVEDILOL 3.125 MG TABLET. PO SCH ×2 (08:14→16:46)
[2017-05-10] MEDS: metOLazone 2.5 MG TABLET PO SCH (08:18)
[2017-05-10 08:29] LABS: ANISOCYTOSIS SLIGHT; PLT ESTIMATE ADEQUATE (ADEQUATE); POIKILOCYTOSIS SLIGHT
--- NOTE | 2017-05-10 08:38 | PDOC ---
Infectious Disease Note Vital Sign Vital Signs Vital Signs Date Time Temp Pulse Resp B/P (MAP) Pulse Ox O2 Delivery O2 Flow Rate FiO2 05/10/17 08:19 Bi-pap 4.0 05/10/17 08:14 86 100/60 05/10/17 07:00 97.3 16 98 97.3 Labs Lab Laboratory Tests Test 05/09/17 22:17 05/09/17 23:00 05/10/17 00:25 05/10/17 02:10 White Blood Count 18.1 x10^3/uL (4.0-11.0) Red Blood Count 4.53 x10^6/uL (4.30-5.70) Hemoglobin 12.6 g/dL (13.0-17.5) Hematocrit 39.3 % (39.0-53.0) Mean Corpuscular Volume 87 fL (79-100) Mean Corpuscular Hemoglobin 28 pg (25-35) Mean Corpuscular Hemoglobin Concent 32 g/dL (31-37) Red Cell Distribution Width 19.3 % (11.5-14.5) Platelet Count 313 x10^3/uL (140-400) Neutrophils (%) (Auto) 65 % (31-73) Lymphocytes (%) (Auto) 24 % (24-48) Monocytes (%) (Auto) 8 % (0-9) Eosinophils (%) (Auto) 2 % (0-3) Basophils (%) (Auto) 1 % (0-3) Neutrophils # (Auto) 11.8 x10^3uL (1.8-7.7) Lymphocytes # (Auto) 4.3 x10^3/uL (1.0-4.8) Monocytes # (Auto) 1.5 x10^3/uL (0.0-1.1) Eosinophils # (Auto) 0.4 x10^3/uL (0.0-0.7) Basophils # (Auto) 0.1 x10^3/uL (0.0-0.2) Prothrombin Time 13.9 SEC (11.7-14.0) Prothromb Time International Ratio 1.1 (0.8-1.1) Activated Partial Thromboplast Time 28 SEC (24-38) Sodium Level 136 mmol/L (136-145) Potassium Level 4.1 mmol/L (3.5-5.1) Chloride Level 100 mmol/L (98-107) Carbon Dioxide Level 22 mmol/L (21-32) Anion Gap 14 (6-14) Blood Urea Nitrogen 45 mg/dL (8-26) Creatinine 1.9 mg/dL (0.7-1.3) Estimated GFR (Cockcroft-Gault) 34.3 BUN/Creatinine Ratio 24 (6-20) Glucose Level 229 mg/dL (70-99) Lactic Acid Level 3.7 mmol/L (0.4-2.0) 2.5 mmol/L (0.4-2.0) Calcium Level 9.1 mg/dL (8.5-10.1) Magnesium Level 2.3 mg/dL (1.8-2.4) Total Bilirubin 0.6 mg/dL (0.2-1.0) Aspartate Amino Transf (AST/SGOT) 20 U/L (15-37) Alanine Aminotransferase (ALT/SGPT) 20 U/L (16-63) Alkaline Phosphatase 110 U/L (46-116) Troponin I Quantitative 0.027 ng/mL (0.000-0.055) CR-Rmz-O-Type Natriuretic Peptide 2387 pg/mL (0-449) Total Protein 9.1 g/dL (6.4-8.2) Albumin 3.9 g/dL (3.4-5.0) Albumin/Globulin Ratio 0.8 (1.0-1.7) O2 Saturation 96 % (92-99) Arterial Blood pH 7.38 (7.35-7.45) Arterial Blood pCO2 at Patient Temp 38 mmHg (35-46) Arterial Blood pO2 at Patient Temp 88 mmHg (65-108) Arterial Blood HCO3 22 mmol/L (21-28) Arterial Blood Base Excess -3 mmol/L (-3-3) FiO2 60.0 Urine Collection Type Unknown Urine Color Yellow Urine Clarity Clear Urine pH 5.5 Urine Specific [place] 1.010 Urine Protein Negative mg/dL (NEG-TRACE) Urine Glucose (UA) Negative mg/dL (NEG) Urine Ketones (Stick) Negative mg/dL (NEG) Urine Blood Negative (NEG) Urine Nitrite Negative (NEG) Urine Bilirubin Negative (NEG) Urine Urobilinogen Dipstick 0.2 mg/dL (0.2 mg/dL) Urine Leukocyte Esterase Negative (NEG) Urine RBC 0 /HPF (0-2) Urine WBC 0 /HPF (0-4) Urine Squamous Epithelial Cells Occ /LPF Urine Bacteria 0 /HPF (0-FEW) Urine Hyaline Casts Moderate /HPF Urine Mucus Slight /LPF Test 05/10/17 04:45 White Blood Count 13.6 x10^3/uL (4.0-11.0) Red Blood Count 3.66 x10^6/uL (4.30-5.70) Hemoglobin 10.2 g/dL (13.0-17.5) Hematocrit 31.5 % (39.0-53.0) Mean Corpuscular Volume 86 fL (79-100) Mean Corpuscular Hemoglobin 28 pg (25-35) Mean Corpuscular Hemoglobin Concent 32 g/dL (31-37) Red Cell Distribution Width 19.7 % (11.5-14.5) Platelet Count 182 x10^3/uL (140-400) Neutrophils (%) (Auto) 89 % (31-73) Lymphocytes (%) (Auto) 5 % (24-48) Monocytes (%) (Auto) 6 % (0-9) Eosinophils (%) (Auto) 0 % (0-3) Basophils (%) (Auto) 1 % (0-3) Neutrophils # (Auto) 12.1 x10^3uL (1.8-7.7) Lymphocytes # (Auto) 0.7 x10^3/uL (1.0-4.8) Monocytes # (Auto) 0.8 x10^3/uL (0.0-1.1) Eosinophils # (Auto) 0.0 x10^3/uL (0.0-0.7) Basophils # (Auto) 0.1 x10^3/uL (0.0-0.2) Segmented Neutrophils % 74 % (35-66) Band Neutrophils % 17 % (0-9) Lymphocytes % 4 % (24-48) Monocytes % 5 % (0-10) Platelet Estimate Adequate (ADEQUATE) Poikilocytosis Slight Anisocytosis Slight Sodium Level 138 mmol/L (136-145) Potassium Level 4.3 mmol/L (3.5-5.1) Chloride Level 102 mmol/L (98-107) Carbon Dioxide Level 24 mmol/L (21-32) Anion Gap 12 (6-14) Blood Urea Nitrogen 45 mg/dL (8-26) Creatinine 1.9 mg/dL (0.7-1.3) Estimated GFR (Cockcroft-Gault) 34.3 Glucose Level 219 mg/dL (70-99) Calcium Level 8.7 mg/dL (8.5-10.1) Troponin I Quantitative 0.147 ng/mL (0.000-0.055) Objective Assessment Leukocytosis , likely reactive Pulmonary edema Renal insufficiency CHF Tachycardia Plan Plan of Care no need for antibiotics supportive care chf management JOSÉ MIGUEL CONROY MD May 10, 2017 08:38
[2017-05-10] MEDS ORDERED: ASPIRIN ENTERIC COATED 81 MG TABLET.DR. PO SCH (09:00)
--- NOTE | 2017-05-10 09:11 | EKG ---
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
--- NOTE | 2017-05-10 09:51 | CONS ---
DATE OF CONSULTATION: 05/10/2017 REQUESTING PHYSICIAN: Alfred Norris M.D. REASON FOR CONSULTATION: Possible sepsis. HISTORY OF PRESENT ILLNESS: This is an 81-year-old gentleman who has a history of congestive heart failure, who arrived via EMS for evaluation of sudden onset of worsening shortness of breath. The patient in fact was found to be in pulmonary edema, had leukocytosis and tachycardia and possibility of sepsis was entertained. The patient had a white count of 18,000 and lactic acid was 3.7. The patient was given a dose of Rocephin and also management for CHF. The patient is feeling this morning much better as since he states he is almost back to his normal. He admitted that he ate things that he should not have eaten with being known congestive heart failure in the last few days. The patient denied any fever and denied any nausea, vomiting or diarrhea. Denied any chest pain. Denied any abdominal pain, headache, visual symptoms or urinary symptoms. PAST MEDICAL HISTORY: Positive for congestive heart failure. The patient is getting dobutamine infusions every month. The patient also has COPD, coronary artery disease, diabetes, hyperlipidemia, hypertension, colon cancer, has had chemotherapy, cholecystectomy and pacemaker in place. SOCIAL HISTORY: Negative for smoking, alcohol or illicit drug use. ALLERGIES: No known drug allergies. CURRENT MEDICATIONS: Reviewed. The patient is not on any antibiotics as one dose of Rocephin was given from the ER. REVIEW OF SYSTEMS: As per HPI, all other systems reviewed, are negative. PHYSICAL EXAMINATION: GENERAL: Alert and oriented gentleman, not in any distress. VITAL SIGNS: Stable and afebrile. HEENT: NAD. NECK: Supple. No JVP. No lymphadenopathy. LUNGS: Clear. HEART: S1 and S2 regular. ABDOMEN: Benign. EXTREMITIES: No edema or cyanosis. SKIN: Unremarkable. NEUROLOGICAL: The patient is neurologically intact. LABORATORY DATA: White count is 13,000 down from 18,000. BUN and creatinine is 45 and 1.9, which is chronic. Lactic acid has improved to 2.5 from 3.7. Urinalysis unremarkable. RADIOLOGICAL DATA: Chest x-ray is showing pulmonary edema and bilateral effusion. IMPRESSION: 1. Leukocytosis is reactive. 2. Pulmonary edema. 3. Tachycardia secondary to pulmonary edema. 4. Renal insufficiency. 5. Congestive heart failure. 6. Diabetes. 7. Hypertension. RECOMMENDATIONS: I do not see the need for antibiotics. Supportive care. CHF management and we will closely monitor for condition if changes. Also, we will follow the blood culture. Thank you very much, Dr. Norris, for giving me the opportunity to participate in this patient's care. JOSÉ MIGUEL CONROY MD DR: LOBITO/chet JOB#: [id number] / [id number]
--- NOTE | 2017-05-10 11:17 | PDOC ---
Provider Note Provider Note Patient seen. History and Physical dictated. See dictation# [id number] TOM FOSTER MD May 10, 2017 11:17
--- NOTE | 2017-05-10 11:49 | HP ---
ADMIT DATE: 05/10/2017 ADMITTING PHYSICIAN: Tom Foster MD. REASON FOR ADMISSION: Dyspnea. HISTORY OF PRESENT ILLNESS: This 81-year-old male became much more short of breath. Because of the sudden onset of shortness of breath, the patient came to the Emergency Room. In the Emergency Room, the patient was noted to be in acute pulmonary edema. Chest x-ray showed bilateral infiltrates and congestive changes. His blood pressure was 160/115 and his oxygen saturation was 70% on a nonrebreathing mask. The patient was started on IV Lasix, given nitroglycerin and his symptoms started improving and he did not have to be intubated. He is known to have diastolic heart failure with ejection fraction as low as 10%-15% and has required frequent admissions as well as IV dobutamine. Recently, he was started on Entresto one tablet daily and actually, he was doing quite well until he recently ran out of the medication and he could not fill the prescription because it was $400. Previously, he had samples given by the finish repair worker. After he ran out of the medication, his breathing slowly started getting worse. Because of the worsening dyspnea yesterday, he came to the Emergency Room. REVIEW OF SYSTEMS: At present time, the patient denies any nausea, vomiting, abdominal pain, leg cramps, dizziness. He has had some cough, dyspnea is improving. His white count in the Emergency Room was 18.1 with hemoglobin of 12.6, but the patient denies any yellow mucus, fever or chills, fatigue or body aches. Other systems reviewed and are negative. PAST MEDICAL HISTORY: As noted earlier, the patient has been admitted here several times in the past because of acute on chronic systolic and diastolic combined congestive heart failure with ejection fraction of 10%-15% and he also has AICD. He has history of hypertension, atrial fibrillation, coronary artery disease, had stent and CABG, hyperlipidemia, moderate mitral regurgitation, right-sided pleural effusion with recurrent thoracentesis in the past, colon cancer with surgery as well as chemotherapy, chronic renal insufficiency, states 3 previous acute renal failure requiring temporary hemodialysis in 01/2017, diabetes mellitus type 2. PAST SURGICAL HISTORY: The patient had thoracentesis in 01/2017, has a permanent pacemaker converted to AICD in 01/2017, cholecystectomy, CABG and colon resection. FAMILY HISTORY: Positive for diabetes, hypertension and heart disease. SOCIAL HISTORY: History of smoking. No history of alcoholism or drug abuse. SYSTEMS REVIEW: As noted earlier. ALLERGIES: None known any. MEDICATIONS: Please refer to the orders. The patient ran out of Entresto as noted earlier. PHYSICAL EXAMINATION: VITAL SIGNS: Temperature 97.3, pulse 81 per minute, respirations 16 per minute, blood pressure 118/66 mmHg, O2 sats are 98% on BiPAP. GENERAL: The patient is alert, oriented, not in any acute distress. LUNGS: Decreased breath sounds at bases with bilateral basal rales. CARDIOVASCULAR SYSTEM: S1, S2 regular. ABDOMEN: Soft, nontender, no guarding, no rigidity. Bowel sounds present. EXTREMITIES: No edema. CENTRAL NERVOUS SYSTEM: Alert and oriented. No new changes. LABORATORY DATA: Chest x-ray showed moderate pulmonary edema and small bilateral pleural effusions and mild cardiomegaly. WBC count was 18.1 as noted earlier yesterday and 13.6 today, hemoglobin 12.6 yesterday and 10.2 today. Sodium 138, potassium 4.3, BUN was 45, creatinine 1.9. BNP was 2387, total protein 9.1, albumin 3.9, glucose 229. IMPRESSION: 1. 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 2. Acute pulmonary edema due to congestive heart failure. 3. Bilateral pleural effusions. 4. Hypertensive crisis. 5. Atrial fibrillation, currently on Eliquis, Plavix, and aspirin. I will discontinue aspirin. 6. Anemia. Hemoglobin has dropped significantly in 1 day. We will recheck labs in a.m. Discontinue aspirin. 7. History of coronary artery disease status post coronary artery bypass graft and stent placement. 8. Moderate mitral regurgitation. 9. Hyperlipidemia. 10. History of colon cancer. 11. Chronic kidney disease, stage 3. 12. Diabetes mellitus type 2. 13. Status post automatic implantable cardioverter defibrillator. PLAN: Consult Dr. Linares for cardiology evaluation and management. He has been started on dobutamine drip. His pulmonary edema is improving. He wanted to go home today, but he is still having significant crackles in the lungs. Entresto has been restarted. If he remains stable, he can be moved out of the Intensive Care Unit. For details, please review the orders. Long-term as well as short-term prognosis of this patient is poor due to his multiple medical problems. TOM FOSTER MD DR: Sebastian JOB#: [id number] / [id number]
[2017-05-10] MEDS: INSULIN ASPART 300 UNITS/3 ML INSULN.PEN SQ SCH (12:40)
--- NOTE | 2017-05-10 14:09 | PDOC2 ---
CONSULT Date of Consult Date of Consult DATE: 05/10/17 TIME: 14:00 Reason for Consult Reason for Consult: Dyspnea Referring Physician Referring Physician: Dr. Norris Identification/Chief Complaint Chief Complaint Dyspnea Problems: History of Present Illness Reason for Visit: This patient is an 81-year-old gentleman that is a patient that usually follows up with Dr. Barraza and has also been seen by the energy administrator in . 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 He had been doing rather well with the Entresto then due to the cost of the medication he stopped taking it about a week ago and he now comes in with severe dyspnea and edema in acute pulmonary edema. The patient was seen in the emergency room and he was decided to admit him for further care. At the time that I saw him he denies having any chest pains, no palpitations, and he is still having some shortness of breath but doing better. The patient has an AICD in place. Past Medical History Cardiovascular: AFIB, CAD, CHF, HTN, NE, Hyperlipidemia, Valve insufficiency Pulmonary: Other Heme/Onc: Cancer Renal/: Chronic renal insuff, Acute renal failure Endocrine: Diabetes Past Surgical History Past Surgical History: Pacemaker, Cholecystectomy, CABG, Colon Resection Family History Family History: Diabetes, Heart Disease, Hypertension, Other Current Problem List Problem List Problems Medical Problems: (1) CHF exacerbation Status: Acute (2) Hypertension Status: Acute (3) Lactic acidosis Status: Acute (4) Leukocytosis Status: Acute (5) Renal insufficiency Status: Acute (6) SOB (shortness of breath) Status: Acute Current Medications Current Medications Current Medications Nitroglycerin (Nitrostat) 0.4 mg PRN Q5MIN PRN SL CHEST PAIN Last administered on 05/09/17 22:20; Start 05/09/17 at 22:15 Nitroglycerin/ Dextrose 250 ml @ 0 mls/hr 1X ONCE IV Last administered on 22:30; Start 05/09/17 at 22:30; Stop 05/09/17 at 22:31; Status DC Furosemide (Lasix) 40 mg 1X ONCE IVP Last administered on 05/09/17 22:29; Start 05/09/17 at 22:30; Stop 05/09/17 at 22:31; Status DC Ceftriaxone Sodium 1 gm/ Dextrose 50 ml @ 100 mls/hr 1X STAT IV ; Start 05/09 at 22:29; Stop 05/09/17 at 22:58; Status UNV Ceftriaxone Sodium 50 ml @ 100 mls/hr 1X ONCE IV ; Start 05/09/17 at 23:00; Stop 05/09/17 at 23:29; Status Cancel Ondansetron HCl (Zofran) 4 mg PRN Q8HRS PRN IV NAUSEA/VOMITING; Start at 22:45; Stop 05/10/17 at 22:44 Dobutamine HCl/ Dextrose 250 ml @ 0 mls/hr 1X ONCE IV Last administered on 00:48; Start 05/09/17 at 23:00; Stop 05/09/17 at 23:01; Status DC Ceftriaxone Sodium (Rocephin) 1 gm 1X ONCE IVP Last administered on 00:48; Start 05/10/17 at 01:00; Stop 05/10/17 at 01:01; Status DC Acetaminophen (Tylenol) 650 mg PRN Q6HRS PRN PO Headaches, Temp > 101.5F; Start 05/10/17 at 01:45 Apixaban (Eliquis) 5 mg BID PO Last administered on 05/10/17 08:13; Start at 09:00 Aspirin (Ecotrin) 81 mg DAILY PO Last administered on 05/10/17 08:13; Start 05/10/17 at 09:00; Stop 05/10/17 at 11:09; Status DC Carvedilol (Coreg) 3.125 mg BIDWMEALS PO Last administered on 05/10/17 08:14 ; Start 05/10/17 at 08:00 Clopidogrel Bisulfate (Plavix) 75 mg DAILY PO Last administered on 05/10/17 08:13; Start 05/10/17 at 09:00 Furosemide (Lasix) 40 mg BID94 PO Last administered on 05/10/17 08:12; Start 05/10/17 at 09:00 Linagliptin (Tradjenta) 5 mg DAILY PO Last administered on 05/10/17 08:13; Start 05/10/17 at 09:00 Magnesium Hydroxide (Milk Of Magnesia) 2,400 mg PRN Q24HRS PRN PO CONSTIPATION ; Start 05/10/17 at 01:45 Magnesium Oxide (Magnesium Oxide) 400 mg BID PO Last administered on 08:13; Start 05/10/17 at 09:00 Metolazone (Zaroxolyn) 2.5 mg QODAY PO Last administered on 05/10/17 08:18; Start 05/10/17 at 09:00 Montelukast Sodium (Singulair) 10 mg QHS PO ; Start 05/10/17 at 21:00 Multivitamins (Thera M Plus) 1 tab DAILY PO Last administered on 05/10/17 08: 13; Start 05/10/17 at 09:00 Nitroglycerin (Nitrostat) 0.4 mg PRN Q5MIN PRN SL CHEST PAIN; Start 05/10/17 at 01:45 Sacubitril/ Valsartan (Entresto 24 Mg-26 Mg) 1 tab BID PO Last administered on 05/10/17 08:13; Start 05/10/17 at 09:00 Spironolactone (Aldactone) 25 mg DAILY PO Last administered on 05/10/17 08:13 ; Start 05/10/17 at 09:00 Fish Oil (Fish Oil) 1,000 mg DAILY PO Last administered on 05/10/17 08:13; Start 05/10/17 at 09:00 Atorvastatin Calcium (Lipitor) 80 mg QHS PO ; Start 05/10/17 at 21:00 Potassium Chloride (Klor-Con) 20 meq QMTUTHSA PO ; Start 05/11/17 at 16:00 Info (Anti-Coagulation Monitoring By Pharmacy) 1 each PRN DAILY PRN MC SEE COMMENTS Last administered on 05/10/17 03:04; Start 05/10/17 at 02:00 Insulin Aspart (NovoLOG) BIDBFRMEAL SQ ; Start 05/10/17 at 16:30 Acetaminophen (Tylenol) 650 mg PRN Q6HRS PRN PO MILD PAIN / TEMP; Start at 11:30 Active Scripts Active Tradjenta (Linagliptin) 5 Mg Tablet 5 Mg PO DAILY Novolog Flexpen (Insulin Aspart) 100 Unit/1 Ml Insuln.pen 1 Unit SQ PER SLIDING SCALE SUbcutaneous injection Before meals three times daily: <150= no insulin 151-200= 2 units insulin 201-250 =3 units insulin 251-300 = 4 units insulin 301-350 = 6 units insulin 351-400 = 8 units insulin >401 call Metolazone 2.5 Mg Tablet 2.5 Mg PO QODAY Milk Of Magnesia (Magnesium Hydroxide) 400 Mg/5 Ml Oral.susp 2,400 Mg PO PRN Q24HRS PRN Furosemide 80 Mg Tablet 80 Mg PO BID92 Carvedilol 3.125 Mg Tablet 3.125 Mg PO BIDWMEALS Eliquis (Apixaban) 2.5 Mg Tablet 5 Mg PO BID Aldactone (Spironolactone) 25 Mg Tablet 25 Mg PO DAILY Entresto 24 mg-26 mg Tablet (Sacubitril/Valsartan) 1 Each Tablet 1 Tab PO BID Thera-M Tablet (Multivits,Ca,Minerals/Iron/Fa) 1 Each Tablet 1 Tab PO DAILY Montelukast Sodium Tablet (Montelukast Sodium) 10 Mg Tablet 10 Mg PO QHS Metoprolol Succinate 50 Mg Tab.er.24h 50 Mg PO DAILY Tylenol (Acetaminophen) 325 Mg Tablet 650 Mg PO PRN Q6HRS PRN Reported Potassium Chloride 20 Meq Tablet.er 20 Meq PO QMTUTHSA Furosemide 40 Mg Tablet 40 Mg PO BID Aspir 81 (Aspirin) 81 Mg Tablet.dr 81 Mg PO Mag-Oxide (Magnesium Oxide) 400 Mg Tablet 1 Tab PO BID NITROGLYCERIN SubLingual (Nitroglycerin) 0.4 Mg Tab.subl 0.4 Mg SL PRN Q5MIN PRN [place]-3 Fish Oil 1,000 Mg Sfgl ([place]-3/Dha/Epa/Fish Oil) 1,000 Mg Capsule 1, 000 Mg PO DAILY Plavix (Clopidogrel Bisulfate) 75 Mg Tablet 75 Mg PO DAILY Crestor (Rosuvastatin Calcium) 20 Mg Tablet 20 Mg PO HS Allergies Allergies: Coded Allergies: I S O L A T I O N *CONTACT* (Verified Allergy, Unknown, 03/25/17) mrsa No Known Medication Allergies (Verified Allergy, Unknown, 03/25/17) Physical Exam General: Alert, Oriented X3, Cooperative HEENT: Atraumatic, PERRLA, Mucous membr. moist/pink Heart: Other (irregular, S1-S2, 1 to 2/6 systolic murmur.) Abdomen: Normal bowel sounds, Soft Extremities: Other (2+ pitting edema) Vitals VITALS Vital Signs Date Time Temp Pulse Resp B/P (MAP) Pulse Ox O2 Delivery O2 Flow Rate FiO2 05/10/17 13:00 76 18 90/56 (67) 94 Nasal Cannula 3.0 05/10/17 12:00 98.0 98.0 Labs Labs Laboratory Tests Test 05/09/17 22:17 05/09/17 23:00 05/10/17 00:25 05/10/17 02:10 White Blood Count 18.1 x10^3/uL (4.0-11.0) Red Blood Count 4.53 x10^6/uL (4.30-5.70) Hemoglobin 12.6 g/dL (13.0-17.5) Hematocrit 39.3 % (39.0-53.0) Mean Corpuscular Volume 87 fL (79-100) Mean Corpuscular Hemoglobin 28 pg (25-35) Mean Corpuscular Hemoglobin Concent 32 g/dL (31-37) Red Cell Distribution Width 19.3 % (11.5-14.5) Platelet Count 313 x10^3/uL (140-400) Neutrophils (%) (Auto) 65 % (31-73) Lymphocytes (%) (Auto) 24 % (24-48) Monocytes (%) (Auto) 8 % (0-9) Eosinophils (%) (Auto) 2 % (0-3) Basophils (%) (Auto) 1 % (0-3) Neutrophils # (Auto) 11.8 x10^3uL (1.8-7.7) Lymphocytes # (Auto) 4.3 x10^3/uL (1.0-4.8) Monocytes # (Auto) 1.5 x10^3/uL (0.0-1.1) Eosinophils # (Auto) 0.4 x10^3/uL (0.0-0.7) Basophils # (Auto) 0.1 x10^3/uL (0.0-0.2) Prothrombin Time 13.9 SEC (11.7-14.0) Prothromb Time International Ratio 1.1 (0.8-1.1) Activated Partial Thromboplast Time 28 SEC (24-38) Sodium Level 136 mmol/L (136-145) Potassium Level 4.1 mmol/L (3.5-5.1) Chloride Level 100 mmol/L (98-107) Carbon Dioxide Level 22 mmol/L (21-32) Anion Gap 14 (6-14) Blood Urea Nitrogen 45 mg/dL (8-26) Creatinine 1.9 mg/dL (0.7-1.3) Estimated GFR (Cockcroft-Gault) 34.3 BUN/Creatinine Ratio 24 (6-20) Glucose Level 229 mg/dL (70-99) Lactic Acid Level 3.7 mmol/L (0.4-2.0) 2.5 mmol/L (0.4-2.0) Calcium Level 9.1 mg/dL (8.5-10.1) Magnesium Level 2.3 mg/dL (1.8-2.4) Total Bilirubin 0.6 mg/dL (0.2-1.0) Aspartate Amino Transf (AST/SGOT) 20 U/L (15-37) Alanine Aminotransferase (ALT/SGPT) 20 U/L (16-63) Alkaline Phosphatase 110 U/L (46-116) Troponin I Quantitative 0.027 ng/mL (0.000-0.055) GH-Lmn-D-Type Natriuretic Peptide 2387 pg/mL (0-449) Total Protein 9.1 g/dL (6.4-8.2) Albumin 3.9 g/dL (3.4-5.0) Albumin/Globulin Ratio 0.8 (1.0-1.7) O2 Saturation 96 % (92-99) Arterial Blood pH 7.38 (7.35-7.45) Arterial Blood pCO2 at Patient Temp 38 mmHg (35-46) Arterial Blood pO2 at Patient Temp 88 mmHg (65-108) Arterial Blood HCO3 22 mmol/L (21-28) Arterial Blood Base Excess -3 mmol/L (-3-3) FiO2 60.0 Urine Collection Type Unknown Urine Color Yellow Urine Clarity Clear Urine pH 5.5 Urine Specific [place] 1.010 Urine Protein Negative mg/dL (NEG-TRACE) Urine Glucose (UA) Negative mg/dL (NEG) Urine Ketones (Stick) Negative mg/dL (NEG) Urine Blood Negative (NEG) Urine Nitrite Negative (NEG) Urine Bilirubin Negative (NEG) Urine Urobilinogen Dipstick 0.2 mg/dL (0.2 mg/dL) Urine Leukocyte Esterase Negative (NEG) Urine RBC 0 /HPF (0-2) Urine WBC 0 /HPF (0-4) Urine Squamous Epithelial Cells Occ /LPF Urine Bacteria 0 /HPF (0-FEW) Urine Hyaline Casts Moderate /HPF Urine Mucus Slight /LPF Test 05/10/17 04:45 05/10/17 10:35 05/10/17 12:38 White Blood Count 13.6 x10^3/uL (4.0-11.0) Red Blood Count 3.66 x10^6/uL (4.30-5.70) Hemoglobin 10.2 g/dL (13.0-17.5) Hematocrit 31.5 % (39.0-53.0) Mean Corpuscular Volume 86 fL (79-100) Mean Corpuscular Hemoglobin 28 pg (25-35) Mean Corpuscular Hemoglobin Concent 32 g/dL (31-37) Red Cell Distribution Width 19.7 % (11.5-14.5) Platelet Count 182 x10^3/uL (140-400) Neutrophils (%) (Auto) 89 % (31-73) Lymphocytes (%) (Auto) 5 % (24-48) Monocytes (%) (Auto) 6 % (0-9) Eosinophils (%) (Auto) 0 % (0-3) Basophils (%) (Auto) 1 % (0-3) Neutrophils # (Auto) 12.1 x10^3uL (1.8-7.7) Lymphocytes # (Auto) 0.7 x10^3/uL (1.0-4.8) Monocytes # (Auto) 0.8 x10^3/uL (0.0-1.1) Eosinophils # (Auto) 0.0 x10^3/uL (0.0-0.7) Basophils # (Auto) 0.1 x10^3/uL (0.0-0.2) Segmented Neutrophils % 74 % (35-66) Band Neutrophils % 17 % (0-9) Lymphocytes % 4 % (24-48) Monocytes % 5 % (0-10) Platelet Estimate Adequate (ADEQUATE) Poikilocytosis Slight Anisocytosis Slight Sodium Level 138 mmol/L (136-145) Potassium Level 4.3 mmol/L (3.5-5.1) Chloride Level 102 mmol/L (98-107) Carbon Dioxide Level 24 mmol/L (21-32) Anion Gap 12 (6-14) Blood Urea Nitrogen 45 mg/dL (8-26) Creatinine 1.9 mg/dL (0.7-1.3) Estimated GFR (Cockcroft-Gault) 34.3 Glucose Level 219 mg/dL (70-99) Calcium Level 8.7 mg/dL (8.5-10.1) Troponin I Quantitative 0.147 ng/mL (0.000-0.055) 0.137 ng/mL (0.000-0.055) Glucose (Fingerstick) 136 mg/dL (70-99) Laboratory Tests Test 05/09/17 22:17 05/09/17 23:00 05/10/17 00:25 05/10/17 02:10 White Blood Count 18.1 x10^3/uL (4.0-11.0) Red Blood Count 4.53 x10^6/uL (4.30-5.70) Hemoglobin 12.6 g/dL (13.0-17.5) Hematocrit 39.3 % (39.0-53.0) Mean Corpuscular Volume 87 fL (79-100) Mean Corpuscular Hemoglobin 28 pg (25-35) Mean Corpuscular Hemoglobin Concent 32 g/dL (31-37) Red Cell Distribution Width 19.3 % (11.5-14.5) Platelet Count 313 x10^3/uL (140-400) Neutrophils (%) (Auto) 65 % (31-73) Lymphocytes (%) (Auto) 24 % (24-48) Monocytes (%) (Auto) 8 % (0-9) Eosinophils (%) (Auto) 2 % (0-3) Basophils (%) (Auto) 1 % (0-3) Neutrophils # (Auto) 11.8 x10^3uL (1.8-7.7) Lymphocytes # (Auto) 4.3 x10^3/uL (1.0-4.8) Monocytes # (Auto) 1.5 x10^3/uL (0.0-1.1) Eosinophils # (Auto) 0.4 x10^3/uL (0.0-0.7) Basophils # (Auto) 0.1 x10^3/uL (0.0-0.2) Prothrombin Time 13.9 SEC (11.7-14.0) Prothromb Time International Ratio 1.1 (0.8-1.1) Activated Partial Thromboplast Time 28 SEC (24-38) Sodium Level 136 mmol/L (136-145) Potassium Level 4.1 mmol/L (3.5-5.1) Chloride Level 100 mmol/L (98-107) Carbon Dioxide Level 22 mmol/L (21-32) Anion Gap 14 (6-14) Blood Urea Nitrogen 45 mg/dL (8-26) Creatinine 1.9 mg/dL (0.7-1.3) Estimated GFR (Cockcroft-Gault) 34.3 BUN/Creatinine Ratio 24 (6-20) Glucose Level 229 mg/dL (70-99) Lactic Acid Level 3.7 mmol/L (0.4-2.0) 2.5 mmol/L (0.4-2.0) Calcium Level 9.1 mg/dL (8.5-10.1) Magnesium Level 2.3 mg/dL (1.8-2.4) Total Bilirubin 0.6 mg/dL (0.2-1.0) Aspartate Amino Transf (AST/SGOT) 20 U/L (15-37) Alanine Aminotransferase (ALT/SGPT) 20 U/L (16-63) Alkaline Phosphatase 110 U/L (46-116) Troponin I Quantitative 0.027 ng/mL (0.000-0.055) [place]-Hvn-S-Type Natriuretic Peptide 2387 pg/mL (0-449) Total Protein 9.1 g/dL (6.4-8.2) Albumin 3.9 g/dL (3.4-5.0) Albumin/Globulin Ratio 0.8 (1.0-1.7) O2 Saturation 96 % (92-99) Arterial Blood pH 7.38 (7.35-7.45) Arterial Blood pCO2 at Patient Temp 38 mmHg (35-46) Arterial Blood pO2 at Patient Temp 88 mmHg (65-108) Arterial Blood HCO3 22 mmol/L (21-28) Arterial Blood Base Excess -3 mmol/L (-3-3) FiO2 60.0 Urine Collection Type Unknown Urine Color Yellow Urine Clarity Clear Urine pH 5.5 Urine Specific [place] 1.010 Urine Protein Negative mg/dL (NEG-TRACE) Urine Glucose (UA) Negative mg/dL (NEG) Urine Ketones (Stick) Negative mg/dL (NEG) Urine Blood Negative (NEG) Urine Nitrite Negative (NEG) Urine Bilirubin Negative (NEG) Urine Urobilinogen Dipstick 0.2 mg/dL (0.2 mg/dL) Urine Leukocyte Esterase Negative (NEG) Urine RBC 0 /HPF (0-2) Urine WBC 0 /HPF (0-4) Urine Squamous Epithelial Cells Occ /LPF Urine Bacteria 0 /HPF (0-FEW) Urine Hyaline Casts Moderate /HPF Urine Mucus Slight /LPF Test 05/10/17 04:45 05/10/17 10:35 05/10/17 12:38 White Blood Count 13.6 x10^3/uL (4.0-11.0) Red Blood Count 3.66 x10^6/uL (4.30-5.70) Hemoglobin 10.2 g/dL (13.0-17.5) Hematocrit 31.5 % (39.0-53.0) Mean Corpuscular Volume 86 fL (79-100) Mean Corpuscular Hemoglobin 28 pg (25-35) Mean Corpuscular Hemoglobin Concent 32 g/dL (31-37) Red Cell Distribution Width 19.7 % (11.5-14.5) Platelet Count 182 x10^3/uL (140-400) Neutrophils (%) (Auto) 89 % (31-73) Lymphocytes (%) (Auto) 5 % (24-48) Monocytes (%) (Auto) 6 % (0-9) Eosinophils (%) (Auto) 0 % (0-3) Basophils (%) (Auto) 1 % (0-3) Neutrophils # (Auto) 12.1 x10^3uL (1.8-7.7) Lymphocytes # (Auto) 0.7 x10^3/uL (1.0-4.8) Monocytes # (Auto) 0.8 x10^3/uL (0.0-1.1) Eosinophils # (Auto) 0.0 x10^3/uL (0.0-0.7) Basophils # (Auto) 0.1 x10^3/uL (0.0-0.2) Segmented Neutrophils % 74 % (35-66) Band Neutrophils % 17 % (0-9) Lymphocytes % 4 % (24-48) Monocytes % 5 % (0-10) Platelet Estimate Adequate (ADEQUATE) Poikilocytosis Slight Anisocytosis Slight Sodium Level 138 mmol/L (136-145) Potassium Level 4.3 mmol/L (3.5-5.1) Chloride Level 102 mmol/L (98-107) Carbon Dioxide Level 24 mmol/L (21-32) Anion Gap 12 (6-14) Blood Urea Nitrogen 45 mg/dL (8-26) Creatinine 1.9 mg/dL (0.7-1.3) Estimated GFR (Cockcroft-Gault) 34.3 Glucose Level 219 mg/dL (70-99) Calcium Level 8.7 mg/dL (8.5-10.1) Troponin I Quantitative 0.147 ng/mL (0.000-0.055) 0.137 ng/mL (0.000-0.055) Glucose (Fingerstick) 136 mg/dL (70-99) Assessment/Plan Assessment/Plan As patient with an end-stage cardiomyopathy comes in in acute pulmonary edema. This is acute on chronic CHF secondary to systolic dysfunction. To me a lot of this may be due to the fact that he was off of his medications. At this point had like to treat him with a dobutamine drip at 5 mics per KG per minute until tomorrow morning and then waited up tomorrow if he is doing better. In addition and like for him to be on Lasix 40 mg IV every 8 hours. Thank you very much for asking me to participate in the care of this patient MASTER FLORES MD May 10, 2017 14:09
[2017-05-10] MEDS: ATORVASTATIN CALCIUM 40 MG TABLET. PO SCH (20:55)
[2017-05-10] MEDS: MONTELUKAST SODIUM 10 MG TABLET. PO SCH (20:56)
[2017-05-11] VITALS (11 sets, daily range): BP systolic 88–116; BP diastolic 49–58
[2017-05-11 05:16] LABS: BASO % 1 % (0-3); EOS % 2 % (0-3); HEMATOCRIT 27.7 % (39.0-53.0); HEMOGLOBIN 9.2 g/dL (13.0-17.5); LYMPH # 1.5 x10^3/uL (1.0-4.8); LYMPH % 18 % (24-48); MEAN CORPUSCULAR HEMOGLOBIN 28 pg (25-35); MEAN CORPUSCULAR HGB CONC 33 g/dL (31-37); MEAN CORPUSCULAR VOLUME 84 fL (79-100); MONO % 9 % (0-9); NEUT % 70 % (31-73); PLATELET COUNT 179 x10^3/uL (140-400); RED BLOOD COUNT 3.28 x10^6/uL (4.30-5.70); RED CELL DISTRIBUTION WIDTH 19.4 % (11.5-14.5); WHITE BLOOD COUNT 8.5 x10^3/uL (4.0-11.0)
[2017-05-11 05:46] LABS: ALBUMIN 3.3 g/dL (3.4-5.0); ALBUMIN/GLOBULIN RATIO 0.9 (1.0-1.7); CALCIUM 8.7 mg/dL (8.5-10.1); CREATININE 1.8 mg/dL (0.7-1.3); GFR 36.5; POTASSIUM 3.5 mmol/L (3.5-5.1); TOTAL BILIRUBIN 0.5 mg/dL (0.2-1.0); TOTAL PROTEIN 6.9 g/dL (6.4-8.2)
[2017-05-11] MEDS: INSULIN ASPART 300 UNITS/3 ML INSULN.PEN SQ SCH ×2 (07:30→16:30)
[2017-05-11] MEDS: MULTIVITAMIN with MINERAL TABLET. PO SCH (08:52)
[2017-05-11] MEDS: LINAGLIPTIN 5 MG TABLET PO SCH (08:52)
[2017-05-11] MEDS: FUROSEMIDE 40 MG TABLET. PO SCH ×2 (08:55→16:58)
[2017-05-11] MEDS: CLOPIDOGREL BISULFATE 75 MG TABLET PO SCH (08:55)
[2017-05-11] MEDS: SPIRONOLACTONE 25 MG TABLET PO SCH (08:55)
[2017-05-11] MEDS: APIXABAN 5 MG TABLET. PO SCH (08:55)
[2017-05-11] MEDS: OMEGA-3 FATTY ACIDS/FISH OIL 1,000 MG CAPSULE. PO SCH (08:55)
[2017-05-11] MEDS: MAGNESIUM OXIDE 400 MG TABLET PO SCH ×2 (08:55→20:51)
[2017-05-11] MEDS: SACUBITRIL/VALSARTAN 24/26MG TABLET. PO SCH ×2 (08:55→20:51)
[2017-05-11] MEDS: CARVEDILOL 3.125 MG TABLET. PO SCH ×2 (08:57→16:58)
--- NOTE | 2017-05-11 11:13 | PDOC ---
PROGRESS NOTES Subjective Subjective The patient is feeling better today. No complaints of dyspnea now. Objective Objective Vital Signs Date Time Temp Pulse Resp B/P (MAP) Pulse Ox O2 Delivery O2 Flow Rate FiO2 05/11/17 08:57 68 106/57 05/11/17 08:00 2.0 05/11/17 08:00 Nasal Cannula 05/11/17 07:00 97.6 20 93 97.6 Intake and Output 05/12/17 06:59 Output Total 200 ml Balance -200 ml Output Urine Total 200 ml Physical Exam Physical Exam Moving air better. No rales. Heart no changes. Assessment Assessment The patient seems to be improving. We will wean off the dobutamine today and if he is stable he may go home in the morning. Problems Medical Problems: (1) CHF exacerbation Status: Acute (2) Hypertension Status: Acute (3) Lactic acidosis Status: Acute (4) Leukocytosis Status: Acute (5) Renal insufficiency Status: Acute (6) SOB (shortness of breath) Status: Acute Comment Review of Relevant I have reviewed the following items sima (where applicable) has been applied. Labs Laboratory Tests Test 05/09/17 22:17 05/09/17 23:00 05/10/17 00:00 05/10/17 00:25 White Blood Count 18.1 x10^3/uL (4.0-11.0) Red Blood Count 4.53 x10^6/uL (4.30-5.70) Hemoglobin 12.6 g/dL (13.0-17.5) Hematocrit 39.3 % (39.0-53.0) Mean Corpuscular Volume 87 fL (79-100) Mean Corpuscular Hemoglobin 28 pg (25-35) Mean Corpuscular Hemoglobin Concent 32 g/dL (31-37) Red Cell Distribution Width 19.3 % (11.5-14.5) Platelet Count 313 x10^3/uL (140-400) Neutrophils (%) (Auto) 65 % (31-73) Lymphocytes (%) (Auto) 24 % (24-48) Monocytes (%) (Auto) 8 % (0-9) Eosinophils (%) (Auto) 2 % (0-3) Basophils (%) (Auto) 1 % (0-3) Neutrophils # (Auto) 11.8 x10^3uL (1.8-7.7) Lymphocytes # (Auto) 4.3 x10^3/uL (1.0-4.8) Monocytes # (Auto) 1.5 x10^3/uL (0.0-1.1) Eosinophils # (Auto) 0.4 x10^3/uL (0.0-0.7) Basophils # (Auto) 0.1 x10^3/uL (0.0-0.2) Prothrombin Time 13.9 SEC (11.7-14.0) Prothromb Time International Ratio 1.1 (0.8-1.1) Activated Partial Thromboplast Time 28 SEC (24-38) Sodium Level 136 mmol/L (136-145) Potassium Level 4.1 mmol/L (3.5-5.1) Chloride Level 100 mmol/L (98-107) Carbon Dioxide Level 22 mmol/L (21-32) Anion Gap 14 (6-14) Blood Urea Nitrogen 45 mg/dL (8-26) Creatinine 1.9 mg/dL (0.7-1.3) Estimated GFR (Cockcroft-Gault) 34.3 BUN/Creatinine Ratio 24 (6-20) Glucose Level 229 mg/dL (70-99) Lactic Acid Level 3.7 mmol/L (0.4-2.0) Calcium Level 9.1 mg/dL (8.5-10.1) Magnesium Level 2.3 mg/dL (1.8-2.4) Total Bilirubin 0.6 mg/dL (0.2-1.0) Aspartate Amino Transf (AST/SGOT) 20 U/L (15-37) Alanine Aminotransferase (ALT/SGPT) 20 U/L (16-63) Alkaline Phosphatase 110 U/L (46-116) Troponin I Quantitative 0.027 ng/mL (0.000-0.055) RT-Ftj-G-Type Natriuretic Peptide 2387 pg/mL (0-449) Total Protein 9.1 g/dL (6.4-8.2) Albumin 3.9 g/dL (3.4-5.0) Albumin/Globulin Ratio 0.8 (1.0-1.7) O2 Saturation 96 % (92-99) Arterial Blood pH 7.38 (7.35-7.45) Arterial Blood pCO2 at Patient Temp 38 mmHg (35-46) Arterial Blood pO2 at Patient Temp 88 mmHg (65-108) Arterial Blood HCO3 22 mmol/L (21-28) Arterial Blood Base Excess -3 mmol/L (-3-3) FiO2 60.0 Nasal Screen MRSA (PCR) Positive (Negative) Urine Collection Type Unknown Urine Color Yellow Urine Clarity Clear Urine pH 5.5 Urine Specific [place] 1.010 Urine Protein Negative mg/dL (NEG-TRACE) Urine Glucose (UA) Negative mg/dL (NEG) Urine Ketones (Stick) Negative mg/dL (NEG) Urine Blood Negative (NEG) Urine Nitrite Negative (NEG) Urine Bilirubin Negative (NEG) Urine Urobilinogen Dipstick 0.2 mg/dL (0.2 mg/dL) Urine Leukocyte Esterase Negative (NEG) Urine RBC 0 /HPF (0-2) Urine WBC 0 /HPF (0-4) Urine Squamous Epithelial Cells Occ /LPF Urine Bacteria 0 /HPF (0-FEW) Urine Hyaline Casts Moderate /HPF Urine Mucus Slight /LPF Test 05/10/17 02:10 05/10/17 04:45 05/10/17 10:35 05/10/17 12:38 Lactic Acid Level 2.5 mmol/L (0.4-2.0) White Blood Count 13.6 x10^3/uL (4.0-11.0) Red Blood Count 3.66 x10^6/uL (4.30-5.70) Hemoglobin 10.2 g/dL (13.0-17.5) Hematocrit 31.5 % (39.0-53.0) Mean Corpuscular Volume 86 fL (79-100) Mean Corpuscular Hemoglobin 28 pg (25-35) Mean Corpuscular Hemoglobin Concent 32 g/dL (31-37) Red Cell Distribution Width 19.7 % (11.5-14.5) Platelet Count 182 x10^3/uL (140-400) Neutrophils (%) (Auto) 89 % (31-73) Lymphocytes (%) (Auto) 5 % (24-48) Monocytes (%) (Auto) 6 % (0-9) Eosinophils (%) (Auto) 0 % (0-3) Basophils (%) (Auto) 1 % (0-3) Neutrophils # (Auto) 12.1 x10^3uL (1.8-7.7) Lymphocytes # (Auto) 0.7 x10^3/uL (1.0-4.8) Monocytes # (Auto) 0.8 x10^3/uL (0.0-1.1) Eosinophils # (Auto) 0.0 x10^3/uL (0.0-0.7) Basophils # (Auto) 0.1 x10^3/uL (0.0-0.2) Segmented Neutrophils % 74 % (35-66) Band Neutrophils % 17 % (0-9) Lymphocytes % 4 % (24-48) Monocytes % 5 % (0-10) Platelet Estimate Adequate (ADEQUATE) Poikilocytosis Slight Anisocytosis Slight Sodium Level 138 mmol/L (136-145) Potassium Level 4.3 mmol/L (3.5-5.1) Chloride Level 102 mmol/L (98-107) Carbon Dioxide Level 24 mmol/L (21-32) Anion Gap 12 (6-14) Blood Urea Nitrogen 45 mg/dL (8-26) Creatinine 1.9 mg/dL (0.7-1.3) Estimated GFR (Cockcroft-Gault) 34.3 Glucose Level 219 mg/dL (70-99) Calcium Level 8.7 mg/dL (8.5-10.1) Troponin I Quantitative 0.147 ng/mL (0.000-0.055) 0.137 ng/mL (0.000-0.055) Glucose (Fingerstick) 136 mg/dL (70-99) Test 05/11/17 04:05 White Blood Count 8.5 x10^3/uL (4.0-11.0) Red Blood Count 3.28 x10^6/uL (4.30-5.70) Hemoglobin 9.2 g/dL (13.0-17.5) Hematocrit 27.7 % (39.0-53.0) Mean Corpuscular Volume 84 fL (79-100) Mean Corpuscular Hemoglobin 28 pg (25-35) Mean Corpuscular Hemoglobin Concent 33 g/dL (31-37) Red Cell Distribution Width 19.4 % (11.5-14.5) Platelet Count 179 x10^3/uL (140-400) Neutrophils (%) (Auto) 70 % (31-73) Lymphocytes (%) (Auto) 18 % (24-48) Monocytes (%) (Auto) 9 % (0-9) Eosinophils (%) (Auto) 2 % (0-3) Basophils (%) (Auto) 1 % (0-3) Neutrophils # (Auto) 5.9 x10^3uL (1.8-7.7) Lymphocytes # (Auto) 1.5 x10^3/uL (1.0-4.8) Monocytes # (Auto) 0.8 x10^3/uL (0.0-1.1) Eosinophils # (Auto) 0.2 x10^3/uL (0.0-0.7) Basophils # (Auto) 0.0 x10^3/uL (0.0-0.2) Sodium Level 139 mmol/L (136-145) Potassium Level 3.5 mmol/L (3.5-5.1) Chloride Level 102 mmol/L (98-107) Carbon Dioxide Level 30 mmol/L (21-32) Anion Gap 7 (6-14) Blood Urea Nitrogen 43 mg/dL (8-26) Creatinine 1.8 mg/dL (0.7-1.3) Estimated GFR (Cockcroft-Gault) 36.5 BUN/Creatinine Ratio 24 (6-20) Glucose Level 106 mg/dL (70-99) Calcium Level 8.7 mg/dL (8.5-10.1) Total Bilirubin 0.5 mg/dL (0.2-1.0) Aspartate Amino Transf (AST/SGOT) 13 U/L (15-37) Alanine Aminotransferase (ALT/SGPT) 16 U/L (16-63) Alkaline Phosphatase 63 U/L (46-116) Total Protein 6.9 g/dL (6.4-8.2) Albumin 3.3 g/dL (3.4-5.0) Albumin/Globulin Ratio 0.9 (1.0-1.7) Laboratory Tests Test 05/10/17 12:38 05/11/17 04:05 Glucose (Fingerstick) 136 mg/dL (70-99) White Blood Count 8.5 x10^3/uL (4.0-11.0) Red Blood Count 3.28 x10^6/uL (4.30-5.70) Hemoglobin 9.2 g/dL (13.0-17.5) Hematocrit 27.7 % (39.0-53.0) Mean Corpuscular Volume 84 fL (79-100) Mean Corpuscular Hemoglobin 28 pg (25-35) Mean Corpuscular Hemoglobin Concent 33 g/dL (31-37) Red Cell Distribution Width 19.4 % (11.5-14.5) Platelet Count 179 x10^3/uL (140-400) Neutrophils (%) (Auto) 70 % (31-73) Lymphocytes (%) (Auto) 18 % (24-48) Monocytes (%) (Auto) 9 % (0-9) Eosinophils (%) (Auto) 2 % (0-3) Basophils (%) (Auto) 1 % (0-3) Neutrophils # (Auto) 5.9 x10^3uL (1.8-7.7) Lymphocytes # (Auto) 1.5 x10^3/uL (1.0-4.8) Monocytes # (Auto) 0.8 x10^3/uL (0.0-1.1) Eosinophils # (Auto) 0.2 x10^3/uL (0.0-0.7) Basophils # (Auto) 0.0 x10^3/uL (0.0-0.2) Sodium Level 139 mmol/L (136-145) Potassium Level 3.5 mmol/L (3.5-5.1) Chloride Level 102 mmol/L (98-107) Carbon Dioxide Level 30 mmol/L (21-32) Anion Gap 7 (6-14) Blood Urea Nitrogen 43 mg/dL (8-26) Creatinine 1.8 mg/dL (0.7-1.3) Estimated GFR (Cockcroft-Gault) 36.5 BUN/Creatinine Ratio 24 (6-20) Glucose Level 106 mg/dL (70-99) Calcium Level 8.7 mg/dL (8.5-10.1) Total Bilirubin 0.5 mg/dL (0.2-1.0) Aspartate Amino Transf (AST/SGOT) 13 U/L (15-37) Alanine Aminotransferase (ALT/SGPT) 16 U/L (16-63) Alkaline Phosphatase 63 U/L (46-116) Total Protein 6.9 g/dL (6.4-8.2) Albumin 3.3 g/dL (3.4-5.0) Albumin/Globulin Ratio 0.9 (1.0-1.7) Microbiology 05/09/17 Blood Culture - Preliminary, Resulted NO GROWTH AFTER 1 DAY Medications Current Medications Nitroglycerin (Nitrostat) 0.4 mg PRN Q5MIN PRN SL CHEST PAIN Last administered on 05/09/17 22:20; Start 05/09/17 at 22:15; Stop 05/10/17 at 14:03; Status DC Nitroglycerin/ Dextrose 250 ml @ 0 mls/hr 1X ONCE IV Last administered on 22:30; Start 05/09/17 at 22:30; Stop 05/09/17 at 22:31; Status DC Furosemide (Lasix) 40 mg 1X ONCE IVP Last administered on 05/09/17 22:29; Start 05/09/17 at 22:30; Stop 05/09/17 at 22:31; Status DC Ceftriaxone Sodium 1 gm/ Dextrose 50 ml @ 100 mls/hr 1X STAT IV ; Start 05/09 at 22:29; Stop 05/09/17 at 22:58; Status UNV Ceftriaxone Sodium 50 ml @ 100 mls/hr 1X ONCE IV ; Start 05/09/17 at 23:00; Stop 05/09/17 at 23:29; Status Cancel Ondansetron HCl (Zofran) 4 mg PRN Q8HRS PRN IV NAUSEA/VOMITING; Start at 22:45; Stop 05/10/17 at 22:44; Status DC Dobutamine HCl/ Dextrose 250 ml @ 0 mls/hr 1X ONCE IV Last administered on 00:48; Start 05/09/17 at 23:00; Stop 05/09/17 at 23:01; Status DC Ceftriaxone Sodium (Rocephin) 1 gm 1X ONCE IVP Last administered on 00:48; Start 05/10/17 at 01:00; Stop 05/10/17 at 01:01; Status DC Acetaminophen (Tylenol) 650 mg PRN Q6HRS PRN PO Headaches, Temp > 101.5F; Start 05/10/17 at 01:45 Apixaban (Eliquis) 5 mg BID PO Last administered on 05/11/17 08:55; Start at 09:00 Aspirin (Ecotrin) 81 mg DAILY PO Last administered on 05/10/17 08:13; Start 05/10/17 at 09:00; Stop 05/10/17 at 11:09; Status DC Carvedilol (Coreg) 3.125 mg BIDWMEALS PO Last administered on 05/11/17 08:57 ; Start 05/10/17 at 08:00 Clopidogrel Bisulfate (Plavix) 75 mg DAILY PO Last administered on 05/11/17 08:55; Start 05/10/17 at 09:00 Furosemide (Lasix) 40 mg BID94 PO Last administered on 05/11/17 08:55; Start 05/10/17 at 09:00 Linagliptin (Tradjenta) 5 mg DAILY PO Last administered on 05/11/17 08:52; Start 05/10/17 at 09:00 Magnesium Hydroxide (Milk Of Magnesia) 2,400 mg PRN Q24HRS PRN PO CONSTIPATION ; Start 05/10/17 at 01:45 Magnesium Oxide (Magnesium Oxide) 400 mg BID PO Last administered on 08:55; Start 05/10/17 at 09:00 Metolazone (Zaroxolyn) 2.5 mg QODAY PO Last administered on 05/10/17 08:18; Start 05/10/17 at 09:00 Montelukast Sodium (Singulair) 10 mg QHS PO Last administered on 05/10/17 20: 56; Start 05/10/17 at 21:00 Multivitamins (Thera M Plus) 1 tab DAILY PO Last administered on 05/11/17 08: 52; Start 05/10/17 at 09:00 Nitroglycerin (Nitrostat) 0.4 mg PRN Q5MIN PRN SL CHEST PAIN; Start 05/10/17 at 01:45 Sacubitril/ Valsartan (Entresto 24 Mg-26 Mg) 1 tab BID PO Last administered on 05/11/17 08:55; Start 05/10/17 at 09:00 Spironolactone (Aldactone) 25 mg DAILY PO Last administered on 05/11/17 08:55 ; Start 05/10/17 at 09:00 Fish Oil (Fish Oil) 1,000 mg DAILY PO Last administered on 05/11/17 08:55; Start 05/10/17 at 09:00 Atorvastatin Calcium (Lipitor) 80 mg QHS PO Last administered on 05/10/17 20: 55; Start 05/10/17 at 21:00 Potassium Chloride (Klor-Con) 20 meq QMTUTHSA PO ; Start 05/11/17 at 16:00 Info (Anti-Coagulation Monitoring By Pharmacy) 1 each PRN DAILY PRN MC SEE COMMENTS Last administered on 05/10/17 14:08; Start 05/10/17 at 02:00 Insulin Aspart (NovoLOG) BIDBFRMEAL SQ ; Start 05/10/17 at 16:30 Acetaminophen (Tylenol) 650 mg PRN Q6HRS PRN PO MILD PAIN / TEMP; Start at 11:30; Stop 05/10/17 at 14:01; Status DC Dobutamine HCl/ Dextrose 250 ml @ 0 mls/hr CONT PRN IV SEE I/O RECORD Last administered on 05/10/17 19:00; Start 05/11/17 at 00:30 Active Scripts Active Tradjenta (Linagliptin) 5 Mg Tablet 5 Mg PO DAILY Novolog Flexpen (Insulin Aspart) 100 Unit/1 Ml Insuln.pen 1 Unit SQ PER SLIDING SCALE SUbcutaneous injection Before meals three times daily: <150= no insulin 151-200= 2 units insulin 201-250 =3 units insulin 251-300 = 4 units insulin 301-350 = 6 units insulin 351-400 = 8 units insulin >401 call Metolazone 2.5 Mg Tablet 2.5 Mg PO QODAY Milk Of Magnesia (Magnesium Hydroxide) 400 Mg/5 Ml Oral.susp 2,400 Mg PO PRN Q24HRS PRN Furosemide 80 Mg Tablet 80 Mg PO BID92 Carvedilol 3.125 Mg Tablet 3.125 Mg PO BIDWMEALS Eliquis (Apixaban) 2.5 Mg Tablet 5 Mg PO BID Aldactone (Spironolactone) 25 Mg Tablet 25 Mg PO DAILY Entresto 24 mg-26 mg Tablet (Sacubitril/Valsartan) 1 Each Tablet 1 Tab PO BID Thera-M Tablet (Multivits,Ca,Minerals/Iron/Fa) 1 Each Tablet 1 Tab PO DAILY Montelukast Sodium Tablet (Montelukast Sodium) 10 Mg Tablet 10 Mg PO QHS Metoprolol Succinate 50 Mg Tab.er.24h 50 Mg PO DAILY Tylenol (Acetaminophen) 325 Mg Tablet 650 Mg PO PRN Q6HRS PRN Reported Potassium Chloride 20 Meq Tablet.er 20 Meq PO QMTUTHSA Furosemide 40 Mg Tablet 40 Mg PO BID Aspir 81 (Aspirin) 81 Mg Tablet.dr 81 Mg PO Mag-Oxide (Magnesium Oxide) 400 Mg Tablet 1 Tab PO BID NITROGLYCERIN SubLingual (Nitroglycerin) 0.4 Mg Tab.subl 0.4 Mg SL PRN Q5MIN PRN [place]-3 Fish Oil 1,000 Mg Sfgl ([place]-3/Dha/Epa/Fish Oil) 1,000 Mg Capsule 1, 000 Mg PO DAILY Plavix (Clopidogrel Bisulfate) 75 Mg Tablet 75 Mg PO DAILY Crestor (Rosuvastatin Calcium) 20 Mg Tablet 20 Mg PO HS Vitals/I & O Vital Sign - Last 24 Hours 05/10/17 05/10/17 05/10/17 05/10/17 11:50 12:00 12:00 13:00 Temp 98.0 98.0 Pulse 74 76 Resp 19 18 B/P (MAP) 91/54 (66) 90/56 (67) Pulse Ox 97 95 94 O2 Delivery Nasal Cannula Bi-pap Nasal Cannula Nasal Cannula O2 Flow Rate 3.0 4.0 3.0 3.0 05/10/17 05/10/17 05/10/17 05/10/17 15:58 15:59 16:46 19:00 Temp 98.2 98.2 Pulse 72 72 72 Resp 20 B/P (MAP) 98/52 (67) 94/48 113/58 (76) Pulse Ox 95 O2 Delivery Bi-pap Nasal Cannula O2 Flow Rate 4.0 3.0 05/10/17 05/10/17 05/10/17 05/10/17 19:24 20:00 20:21 20:56 Temp 98.2 98.2 Pulse 72 75 75 Resp 19 B/P (MAP) 96/52 (67) 110/52 (71) 110/52 Pulse Ox 95 O2 Delivery Nasal Cannula Nasal Cannula O2 Flow Rate 2.0 2.0 05/10/17 05/10/17 05/10/17 05/10/17 21:00 22:00 23:00 23:52 Temp 98.0 98.0 Pulse 74 77 79 Resp 18 B/P (MAP) 109/53 (71) 103/51 (68) 104/58 (73) 103/53 (70) Pulse Ox 95 O2 Delivery Nasal Cannula O2 Flow Rate 2.0 05/11/17 05/11/17 05/11/17 05/11/17 00:01 01:00 02:00 03:41 Temp 97.8 97.8 Pulse 74 74 68 64 Resp 18 B/P (MAP) 104/58 (73) 88/49 (62) 92/58 (69) 92/55 (67) O2 Delivery Nasal Cannula O2 Flow Rate 2.0 05/11/17 05/11/17 05/11/17 05/11/17 04:00 05:00 07:00 08:00 Temp 97.6 97.6 Pulse 71 66 71 Resp 20 B/P (MAP) 100/54 (69) 91/52 (65) 96/53 (67) Pulse Ox 93 O2 Delivery Nasal Cannula Nasal Cannula O2 Flow Rate 2.0 05/11/17 05/11/17 05/11/17 08:00 08:55 08:57 Pulse 71 68 B/P (MAP) 106/57 106/57 O2 Flow Rate 2.0 Intake and Output 05/11/17 05/11/17 05/12/17 14:59 22:59 06:59 Output Total 200 ml Balance -200 ml MASTER FLORES MD May 11, 2017 11:13
[2017-05-11] MEDS: ANTI-COAG MONITOR BY PHARMACY. MC PRN (11:24)
--- NOTE | 2017-05-11 11:36 | PDOC ---
PROGRESS NOTES Subjective Subjective feels better ,want to go home tomorrow Objective Objective Vital Signs Date Time Temp Pulse Resp B/P (MAP) Pulse Ox O2 Delivery O2 Flow Rate FiO2 05/11/17 08:57 68 106/57 05/11/17 08:00 2.0 05/11/17 08:00 Nasal Cannula 05/11/17 07:00 97.6 20 93 97.6 Intake and Output 05/11/17 07:00 Intake Total 2750 ml Output Total 2225 ml Balance 525 ml Intake Oral 2750 ml Output Urine Total 2225 ml # Bowel Movements 1 Physical Exam Abdomen: Normal bowel sounds, Soft Heart: Other (irregular, S1-S2, 1 to 2/6 systolic murmur.) Extremities: Other (2+ pitting edema) General: Alert, Oriented X3, Cooperative HEENT: Atraumatic, PERRLA, Mucous membr. moist/pink MUSCULOSKELETAL: No deformity, Other Neuro: Normal speech Psych/Mental Status: Mental status NL Skin: No breakdown Diagnosis Problem List Problems Medical Problems: (1) CHF exacerbation Status: Acute (2) Hypertension Status: Acute (3) Lactic acidosis Status: Acute (4) Leukocytosis Status: Acute (5) Renal insufficiency Status: Acute (6) SOB (shortness of breath) Status: Acute Assessment Assessment Problems Medical Problems: (1) CHF exacerbation Status: Acute (2) Hypertension Status: Acute (3) Lactic acidosis Status: Acute (4) Leukocytosis Status: Acute (5) Renal insufficiency Status: Acute (6) SOB (shortness of breath) Status: Acute IMPRESSION:clinically improving 1. 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 2. Acute pulmonary edema due to congestive heart failure. 3. Bilateral pleural effusions. 4. Hypertensive crisis. 5. Atrial fibrillation, currently on Eliquis, Plavix, and aspirin. I will discontinue aspirin. 6. Anemia. Hemoglobin has dropped significantly in 1 day. We will recheck labs in a.m. 7. History of coronary artery disease status post coronary artery bypass graft and stent placement. 8. Moderate mitral regurgitation. 9. Hyperlipidemia. 10. History of colon cancer. 11. Chronic kidney disease, stage 3. 12. Diabetes mellitus type 2. 13. Status post automatic implantable cardioverter defibrillator. PLAN: Dobutamine drip wean off today wbc 9.0 down ,reactive cr 1,8 stable. no sepsis, c/s neg repeat cxr today. home tomorrow. Consult Dr. Linares for cardiology evaluation and management. He has been started on dobutamine drip. His pulmonary edema is improving. He wanted to go home today, but he is still having significant crackles in the lungs. Entresto has been restarted. If he remains stable, he can be moved out of the Intensive Care Unit. For details, please review the orders. Long-term as well as short-term prognosis of this patient is poor due to his multiple medical problems. Problems: Plan Plan of Care Problems Medical Problems: (1) CHF exacerbation Status: Acute (2) Hypertension Status: Acute (3) Lactic acidosis Status: Acute (4) Leukocytosis Status: Acute (5) Renal insufficiency Status: Acute (6) SOB (shortness of breath) Status: Acute Comment Review of Relevant I have reviewed the following items sima (where applicable) has been applied. Labs Laboratory Tests Test 05/10/17 12:38 05/11/17 04:05 Glucose (Fingerstick) 136 mg/dL (70-99) White Blood Count 8.5 x10^3/uL (4.0-11.0) Red Blood Count 3.28 x10^6/uL (4.30-5.70) Hemoglobin 9.2 g/dL (13.0-17.5) Hematocrit 27.7 % (39.0-53.0) Mean Corpuscular Volume 84 fL (79-100) Mean Corpuscular Hemoglobin 28 pg (25-35) Mean Corpuscular Hemoglobin Concent 33 g/dL (31-37) Red Cell Distribution Width 19.4 % (11.5-14.5) Platelet Count 179 x10^3/uL (140-400) Neutrophils (%) (Auto) 70 % (31-73) Lymphocytes (%) (Auto) 18 % (24-48) Monocytes (%) (Auto) 9 % (0-9) Eosinophils (%) (Auto) 2 % (0-3) Basophils (%) (Auto) 1 % (0-3) Neutrophils # (Auto) 5.9 x10^3uL (1.8-7.7) Lymphocytes # (Auto) 1.5 x10^3/uL (1.0-4.8) Monocytes # (Auto) 0.8 x10^3/uL (0.0-1.1) Eosinophils # (Auto) 0.2 x10^3/uL (0.0-0.7) Basophils # (Auto) 0.0 x10^3/uL (0.0-0.2) Sodium Level 139 mmol/L (136-145) Potassium Level 3.5 mmol/L (3.5-5.1) Chloride Level 102 mmol/L (98-107) Carbon Dioxide Level 30 mmol/L (21-32) Anion Gap 7 (6-14) Blood Urea Nitrogen 43 mg/dL (8-26) Creatinine 1.8 mg/dL (0.7-1.3) Estimated GFR (Cockcroft-Gault) 36.5 BUN/Creatinine Ratio 24 (6-20) Glucose Level 106 mg/dL (70-99) Calcium Level 8.7 mg/dL (8.5-10.1) Total Bilirubin 0.5 mg/dL (0.2-1.0) Aspartate Amino Transf (AST/SGOT) 13 U/L (15-37) Alanine Aminotransferase (ALT/SGPT) 16 U/L (16-63) Alkaline Phosphatase 63 U/L (46-116) Total Protein 6.9 g/dL (6.4-8.2) Albumin 3.3 g/dL (3.4-5.0) Albumin/Globulin Ratio 0.9 (1.0-1.7) Microbiology 05/09/17 Blood Culture - Preliminary, Resulted NO GROWTH AFTER 1 DAY Medications Current Medications Apixaban (Eliquis) 2.5 mg BID PO ; Start 05/11/17 at 21:00 Atorvastatin Calcium (Lipitor) 80 mg QHS PO Last administered on 05/10/17 20: 55; Start 05/10/17 at 21:00 Dobutamine HCl/ Dextrose 250 ml @ 0 mls/hr CONT PRN IV SEE I/O RECORD Last administered on 05/10/17 19:00; Start 05/11/17 at 00:30 Insulin Aspart (NovoLOG) BIDBFRMEAL SQ ; Start 05/10/17 at 16:30 Montelukast Sodium (Singulair) 10 mg QHS PO Last administered on 05/10/17 20: 56; Start 05/10/17 at 21:00 Potassium Chloride (Klor-Con) 20 meq QMTUTHSA PO ; Start 05/11/17 at 16:00 Vitals/I & O Vital Sign - Last 24 Hours 05/10/17 05/10/17 05/10/17 05/10/17 11:50 12:00 12:00 13:00 Temp 98.0 98.0 Pulse 74 76 Resp 19 18 B/P (MAP) 91/54 (66) 90/56 (67) Pulse Ox 97 95 94 O2 Delivery Nasal Cannula Bi-pap Nasal Cannula Nasal Cannula O2 Flow Rate 3.0 4.0 3.0 3.0 05/10/17 05/10/17 05/10/17 05/10/17 15:58 15:59 16:46 19:00 Temp 98.2 98.2 Pulse 72 72 72 Resp 20 B/P (MAP) 98/52 (67) 94/48 113/58 (76) Pulse Ox 95 O2 Delivery Bi-pap Nasal Cannula O2 Flow Rate 4.0 3.0 05/10/17 05/10/17 05/10/17 05/10/17 19:24 20:00 20:21 20:56 Temp 98.2 98.2 Pulse 72 75 75 Resp 19 B/P (MAP) 96/52 (67) 110/52 (71) 110/52 Pulse Ox 95 O2 Delivery Nasal Cannula Nasal Cannula O2 Flow Rate 2.0 2.0 05/10/17 05/10/17 05/10/17 05/10/17 21:00 22:00 23:00 23:52 Temp 98.0 98.0 Pulse 74 77 79 Resp 18 B/P (MAP) 109/53 (71) 103/51 (68) 104/58 (73) 103/53 (70) Pulse Ox 95 O2 Delivery Nasal Cannula O2 Flow Rate 2.0 05/11/17 05/11/17 05/11/17 05/11/17 00:01 01:00 02:00 03:41 Temp 97.8 97.8 Pulse 74 74 68 64 Resp 18 B/P (MAP) 104/58 (73) 88/49 (62) 92/58 (69) 92/55 (67) O2 Delivery Nasal Cannula O2 Flow Rate 2.0 05/11/17 05/11/17 05/11/17 05/11/17 04:00 05:00 07:00 08:00 Temp 97.6 97.6 Pulse 71 66 71 Resp 20 B/P (MAP) 100/54 (69) 91/52 (65) 96/53 (67) Pulse Ox 93 O2 Delivery Nasal Cannula Nasal Cannula O2 Flow Rate 2.0 05/11/17 05/11/17 05/11/17 08:00 08:55 08:57 Pulse 71 68 B/P (MAP) 106/57 106/57 O2 Flow Rate 2.0 Intake and Output 05/10/17 05/10/17 05/11/17 15:00 23:00 07:00 Intake Total 1600 ml 650 ml 500 ml Output Total 875 ml 250 ml 1100 ml Balance 725 ml 400 ml -600 ml CAIN DHILLON MD May 11, 2017 11:36
--- NOTE | 2017-05-11 13:05 | PDOC ---
Infectious Disease Note Subjective Subjective Feeling pretty good Anticipating discharge home tomorrow On Dobutamine gtt ROS ROS GEN: Denies fevers, chills, sweats CV: Denies chest pain RESP: Denies shortness of air, cough GI: Denies n/v/d Vital Sign Vital Signs Vital Signs Date Time Temp Pulse Resp B/P (MAP) Pulse Ox O2 Delivery O2 Flow Rate FiO2 05/11/17 11:44 97.9 70 18 115/57 (76) 96 97.9 05/11/17 08:00 2.0 05/11/17 08:00 Nasal Cannula Physical Exam PHYSICAL EXAM GENERAL: Propped up in bed, watching TV, relaxed appearance LUNGS: Clear. HEART: S1 and S2 ABDOMEN: Soft, NT EXTREMITIES: No edema or cyanosis SKIN: No rash NEUROLOGICAL: Alert and oriented PIV: ok Labs Lab Laboratory Tests Test 05/11/17 04:05 05/11/17 08:51 05/11/17 12:15 White Blood Count 8.5 x10^3/uL (4.0-11.0) Red Blood Count 3.28 x10^6/uL (4.30-5.70) Hemoglobin 9.2 g/dL (13.0-17.5) Hematocrit 27.7 % (39.0-53.0) Mean Corpuscular Volume 84 fL (79-100) Mean Corpuscular Hemoglobin 28 pg (25-35) Mean Corpuscular Hemoglobin Concent 33 g/dL (31-37) Red Cell Distribution Width 19.4 % (11.5-14.5) Platelet Count 179 x10^3/uL (140-400) Neutrophils (%) (Auto) 70 % (31-73) Lymphocytes (%) (Auto) 18 % (24-48) Monocytes (%) (Auto) 9 % (0-9) Eosinophils (%) (Auto) 2 % (0-3) Basophils (%) (Auto) 1 % (0-3) Neutrophils # (Auto) 5.9 x10^3uL (1.8-7.7) Lymphocytes # (Auto) 1.5 x10^3/uL (1.0-4.8) Monocytes # (Auto) 0.8 x10^3/uL (0.0-1.1) Eosinophils # (Auto) 0.2 x10^3/uL (0.0-0.7) Basophils # (Auto) 0.0 x10^3/uL (0.0-0.2) Sodium Level 139 mmol/L (136-145) Potassium Level 3.5 mmol/L (3.5-5.1) Chloride Level 102 mmol/L (98-107) Carbon Dioxide Level 30 mmol/L (21-32) Anion Gap 7 (6-14) Blood Urea Nitrogen 43 mg/dL (8-26) Creatinine 1.8 mg/dL (0.7-1.3) Estimated GFR (Cockcroft-Gault) 36.5 BUN/Creatinine Ratio 24 (6-20) Glucose Level 106 mg/dL (70-99) Calcium Level 8.7 mg/dL (8.5-10.1) Total Bilirubin 0.5 mg/dL (0.2-1.0) Aspartate Amino Transf (AST/SGOT) 13 U/L (15-37) Alanine Aminotransferase (ALT/SGPT) 16 U/L (16-63) Alkaline Phosphatase 63 U/L (46-116) Total Protein 6.9 g/dL (6.4-8.2) Albumin 3.3 g/dL (3.4-5.0) Albumin/Globulin Ratio 0.9 (1.0-1.7) Glucose (Fingerstick) 141 mg/dL (70-99) 125 mg/dL (70-99) Micro BLOOD CULTURE Preliminary NO GROWTH AFTER 1 DAY Objective Assessment 1. Leukocytosis, reactive, improved 2. Pulmonary edema. 3. Tachycardia secondary to pulmonary edema. 4. Renal insufficiency. 5. Congestive heart failure. 6. Diabetes. 7. Hypertension. 8. MRSA nares Plan Plan of Care Continue off antibiotics Supportive care CHF management Patient seen examined. Chart reviewed in detail. Case discussed with WATER SUPPLY TECHNICIAN. Agree with above ZANA PATEL APRN May 11, 2017 13:05 BLAYNE CHAPPELL MD May 11, 2017 18:00
[2017-05-11] MEDS ORDERED: POTASSIUM CHLORIDE 20 MEQ TABLET.ER. PO SCH (16:00)
[2017-05-11] MEDS: APIXABAN 2.5 MG TABLET. PO SCH (20:51)
[2017-05-11] MEDS: ATORVASTATIN CALCIUM 40 MG TABLET. PO SCH (20:51)
[2017-05-11] MEDS: MONTELUKAST SODIUM 10 MG TABLET. PO SCH (20:51)
[2017-05-12 03:20] VITALS: BP 96/51
[2017-05-12 07:00] VITALS: BP 101/67
[2017-05-12] MEDS: INSULIN ASPART 300 UNITS/3 ML INSULN.PEN SQ SCH (07:30)
[2017-05-12] MEDS: ANTI-COAG MONITOR BY PHARMACY. MC PRN (07:46)
[2017-05-12] MEDS: SPIRONOLACTONE 25 MG TABLET PO SCH (08:26)
[2017-05-12] MEDS: OMEGA-3 FATTY ACIDS/FISH OIL 1,000 MG CAPSULE. PO SCH (08:26)
[2017-05-12] MEDS: metOLazone 2.5 MG TABLET PO SCH (08:26)
[2017-05-12] MEDS: APIXABAN 2.5 MG TABLET. PO SCH (08:26)
[2017-05-12] MEDS: LINAGLIPTIN 5 MG TABLET PO SCH (08:26)
[2017-05-12] MEDS: FUROSEMIDE 40 MG TABLET. PO SCH (08:26)
[2017-05-12] MEDS: CLOPIDOGREL BISULFATE 75 MG TABLET PO SCH (08:26)
[2017-05-12] MEDS: MAGNESIUM OXIDE 400 MG TABLET PO SCH (08:26)
[2017-05-12] MEDS: MULTIVITAMIN with MINERAL TABLET. PO SCH (08:26)
[2017-05-12 08:27] VITALS: BP 101/67
[2017-05-12] MEDS: SACUBITRIL/VALSARTAN 24/26MG TABLET. PO SCH (08:27)
[2017-05-12] MEDS: CARVEDILOL 3.125 MG TABLET. PO SCH (08:27)
--- NOTE | 2017-05-12 08:39 | RAD ---
Two view chest History:CHF PA and lateral views of the chest are submitted. Comparison: 05/09/2017 Findings: There again has been median sternotomy. There is again left electronic cardiac device. Cardiac silhouette is similar. There is no pneumothorax. There is likely very small right pleural effusion as seen previously. There is improved aeration of the bilateral lung parenchyma with decreased patchy airspace and interstitial opacity. Impression: There is improved aeration of the bilateral lung parenchyma with decreased airspace and interstitial opacity. There is probable very small residual right pleural effusion.
--- NOTE | 2017-05-12 10:54 | PDOC ---
Provider Note Provider Note Pt went home before i could see him. off dobutamine drip yesterday. f/u pcp in 1 week CAIN DHILLON MD May 12, 2017 10:54
== END 2017-05-12 11:27 | disposition home or self-care (01) | DRG 291 ==
LOC: ER 22:04 → 1 WEST ICU 22:31 → 2 SOUTH 05-10 19:18
PROVIDERS: ADMIT Internal Medicine; ATTEND Internal Medicine
PROC: 5A09457 Assistance with Respiratory Ventilation, 24-96 Consecutive Hours, Continuous Positive Airway Pressure (ICD-10-PCS; principal; 2017-05-10)
DX: I13.0 Hypertensive heart and chronic kidney disease with heart failure and stage 1 through stage 4 chronic kidney disease, or unspecified chronic kidney disease (principal); I50.43 Acute on chronic combined systolic (congestive) and diastolic (congestive) heart failure; J81.1 Chronic pulmonary edema; E87.2 Acidosis; I16.9 Hypertensive crisis, unspecified; D64.9 Anemia, unspecified; I42.9 Cardiomyopathy, unspecified; E11.22 Type 2 diabetes mellitus with diabetic chronic kidney disease; D72.829 Elevated white blood cell count, unspecified; E78.00 Pure hypercholesterolemia, unspecified; E78.5 Hyperlipidemia, unspecified; I25.10 Atherosclerotic heart disease of native coronary artery without angina pectoris; I34.0 Nonrheumatic mitral (valve) insufficiency; I48.91 Unspecified atrial fibrillation; J44.9 Chronic obstructive pulmonary disease, unspecified; N18.3 Chronic kidney disease, stage 3 (moderate); Z82.49 Family history of ischemic heart disease and other diseases of the circulatory system; Z83.3 Family history of diabetes mellitus; Z85.038 Personal history of other malignant neoplasm of large intestine; Z87.891 Personal history of nicotine dependence; Z95.1 Presence of aortocoronary bypass graft; Z95.5 Presence of coronary angioplasty implant and graft; Z95.810 Presence of automatic (implantable) cardiac defibrillator; Z90.49 Acquired absence of other specified parts of digestive tract; Z92.21 Personal history of antineoplastic chemotherapy; I25.2 Old myocardial infarction; B95.62 Methicillin resistant Staphylococcus aureus infection as the cause of diseases classified elsewhere
CPT/HCPCS: 36415; 71010; 71020; 80048; 80053; 81001; 82805; 82962; 83605; 83735; 83880; 84484; 85007; 85025; 85610; 85730; 87040; 87641; 93005; 94660; 96374; 96375; J0696; J1250; J1815; J1940; J3490; 99291-25

== ENCOUNTER 2017-09-21 09:55 | Inpatient (IN) | payer MEDICARE ==
[2017-09-21 10:33] LABS: ADD MAN DIFF? NO
[2017-09-21 10:41] LABS: BASO # 0.1 x10^3/uL (0.0-0.2); BASO % 1 % (0-3); EOS # 0.2 x10^3/uL (0.0-0.7); EOS % 2 % (0-3); HEMATOCRIT 44.5 % (39.0-53.0); HEMOGLOBIN 15.2 g/dL (13.0-17.5); LYMPH # 1.1 x10^3/uL (1.0-4.8); LYMPH % 11 % (24-48); MEAN CORPUSCULAR HEMOGLOBIN 32 pg (25-35); MEAN CORPUSCULAR HGB CONC 34 g/dL (31-37); MEAN CORPUSCULAR VOLUME 93 fL (79-100); MONO # 0.6 x10^3/uL (0.0-1.1); MONO % 6 % (0-9); NEUT # 7.8 x10^3uL (1.8-7.7); NEUT % 80 % (31-73); PLATELET COUNT 186 x10^3/uL (140-400); RED BLOOD COUNT 4.79 x10^6/uL (4.30-5.70); RED CELL DISTRIBUTION WIDTH 14.3 % (11.5-14.5); WHITE BLOOD COUNT 9.7 x10^3/uL (4.0-11.0)
[2017-09-21 10:51] LABS: ANION GAP 13 (6-14); BLOOD UREA NITROGEN 51 mg/dL (8-26); BUN/CREATININE RATIO 24 (6-20); CALCIUM 9.7 mg/dL (8.5-10.1); CARBON DIOXIDE 26 mmol/L (21-32); CHLORIDE 100 mmol/L (98-107); CREATININE 2.1 mg/dL (0.7-1.3); GFR 30.5; GLUCOSE 221 mg/dL (70-99); POTASSIUM 4.6 mmol/L (3.5-5.1); SODIUM 139 mmol/L (136-145)
[2017-09-21 10:58] LABS: ALBUMIN 4.2 g/dL (3.4-5.0); ALBUMIN/GLOBULIN RATIO 0.9 (1.0-1.7); ALK PHOS 85 U/L (46-116); ALT (SGPT) 24 U/L (16-63); AST (SGOT) 20 U/L (15-37); MAGNESIUM 2.2 mg/dL (1.8-2.4); TOTAL BILIRUBIN 0.8 mg/dL (0.2-1.0)
[2017-09-21 10:59] LABS: TROPONINI < 0.017 ng/mL (0.000-0.055)
[2017-09-21 11:14] LABS: NT-PRO BNP 715 pg/mL (0-449)
[2017-09-21 11:14] LABS: CKMB MASS 1.3 ng/mL (0.0-3.6); CREATINE KINASE 71 U/L (39-308)
[2017-09-21] MEDS ORDERED: AMIODARONE 900 MG in IV DEXTROSE 5% 500 ML IV (13:45)
[2017-09-21] MEDS: AMIODARONE 150 MG in IV DEXTROSE 5% 100 ML IV (13:45)
[2017-09-21] MEDS ORDERED: AMIODARONE 150 MG in IV DEXTROSE 5% 100 ML IV (13:45)
[2017-09-21] MEDS: AMIODARONE 900 MG in IV DEXTROSE 5% 500 ML IV (14:06)
[2017-09-21 20:53] LABS: POC GLUCOSE 177 mg/dL (70-99)
[2017-09-22 07:49] LABS: POC GLUCOSE 116 mg/dL (70-99)
[2017-09-22] MEDS: AMIODARONE HCL 200 MG TABLET. PO (08:39)
[2017-09-22] MEDS ORDERED: MAGNESIUM HYDROXIDE 2,400 MG/30 ML ORAL.SUSP. PO (09:15)
[2017-09-22] MEDS ORDERED: DEXTROSE 50% 25 GM / 50ML DISP.SYRIN. IV (09:15)
[2017-09-22] MEDS ORDERED: NITROGLYCERIN SUBLINGUAL 0.4 MG BOTTLE OF 25. SL (09:15)
[2017-09-22] MEDS ORDERED: ACETAMINOPHEN 325 MG TABLET. PO (09:15)
[2017-09-22] MEDS: APIXABAN 5 MG TABLET. PO (10:13)
[2017-09-22] MEDS: OMEGA-3 FATTY ACIDS/FISH OIL 1,000 MG CAPSULE. PO (10:13)
[2017-09-22] MEDS: LINAGLIPTIN 5 MG TABLET PO (10:14)
[2017-09-22] MEDS: CLOPIDOGREL BISULFATE 75 MG TABLET PO (10:14)
[2017-09-22] MEDS: SACUBITRIL/VALSARTAN 24/26MG TABLET. PO (10:14)
[2017-09-22] MEDS: SPIRONOLACTONE 25 MG TABLET PO (10:14)
[2017-09-22] MEDS: MAGNESIUM OXIDE 400 MG TABLET PO (10:14)
[2017-09-22] MEDS: FUROSEMIDE 40 MG TABLET. PO (10:14)
[2017-09-22] MEDS: MULTIVITAMIN with MINERAL TABLET. PO (10:14)
[2017-09-22] MEDS: CARVEDILOL 3.125 MG TABLET. PO (10:15)
[2017-09-22] MEDS: METOPROLOL SUCC 24HR ER 50 MG TAB.ER.24H. PO (10:15)
[2017-09-22 11:30] LABS: POC GLUCOSE 193 mg/dL (70-99)
[2017-09-22] MEDS: INSULIN ASPART 300 UNITS/3 ML INSULN.PEN SQ (12:38)
[2017-09-22 17:09] LABS: MRSA BY PCR Positive (Negative)
[2017-09-22] MEDS ORDERED: APIXABAN 2.5 MG TABLET. PO (21:00)
[2017-09-22] MEDS ORDERED: ATORVASTATIN CALCIUM 40 MG TABLET. PO (21:00)
[2017-09-22] MEDS ORDERED: MONTELUKAST SODIUM 10 MG TABLET. PO (21:00)
[2017-09-23] MEDS ORDERED: metOLazone 2.5 MG TABLET PO (09:00)
[2017-09-23] MEDS ORDERED: LEVOTHYROXINE 50 MCG TABLET PO (10:00)
== END 2017-09-22 15:30 | disposition home or self-care (01) | DRG 309 ==
LOC: ER 09:55 → 2 SOUTH 13:24
PROC: 4B02XTZ Measurement of Cardiac Defibrillator, External Approach (ICD-10-PCS; principal; 2017-09-21)
DX: I47.2 Ventricular tachycardia (principal); I13.0 Hypertensive heart and chronic kidney disease with heart failure and stage 1 through stage 4 chronic kidney disease, or unspecified chronic kidney disease; E11.22 Type 2 diabetes mellitus with diabetic chronic kidney disease; I42.0 Dilated cardiomyopathy; J44.9 Chronic obstructive pulmonary disease, unspecified; I25.10 Atherosclerotic heart disease of native coronary artery without angina pectoris; I50.9 Heart failure, unspecified; I48.91 Unspecified atrial fibrillation; I34.0 Nonrheumatic mitral (valve) insufficiency; E78.00 Pure hypercholesterolemia, unspecified; E78.5 Hyperlipidemia, unspecified; N18.3 Chronic kidney disease, stage 3 (moderate); Z82.49 Family history of ischemic heart disease and other diseases of the circulatory system; Z85.038 Personal history of other malignant neoplasm of large intestine; Z83.3 Family history of diabetes mellitus; Z95.1 Presence of aortocoronary bypass graft
CPT/HCPCS: 36415; 80053; 82553; 82962; 83735; 83880; 84443; 84484; 85025; 87641; 93005; J0282; J1815

== ENCOUNTER 2018-04-03 21:10 | Inpatient (IN) | payer MEDICARE ==
[~2018-04-03] VITALS: Ht 167.6 cm; Wt 66.9 kg
[~2018-04-03 21:10] MED LIST changes: -AMIO200T2 PO; +AMIO200T4 PO; +BUME2TAB PO; +CYAN100072 PO; +LEVO50TA5 PO; -LOSA25TA4 PO; +LOSA25TA5 PO; +MAGN400T3 PO; +METF500T16 PO; -METF500T4 PO; -METF850T2 PO; +METF850T8 PO; +POTA10TA12 PO; +POTA20TA82 PO; +SITA50TA PO; +b-12
--- NOTE | 2018-04-03 21:17 | PHYS DOC ---
Past Medical History Past Medical History: CAD, Cancer, CHF, COPD, Diabetes-Type II, High Cholesterol, Heart Disease, Hypertension, Hypothyroid Additional Past Medical Histor: CARDIOMYOPATHY COLON CANCER WITH CHEMO Past Surgical History: Cancer Surgery, Cholecystectomy, Pacemaker Additional Past Surgical Histo: PACER/DEFIB. cabg X 2 Alcohol Use: None Drug Use: None Adult General Chief Complaint Chief Complaint: SHORTNESS OF BREATH HPI HPI Patient is a 82 year old man who presents with shortness of breath. Patient was discharged from the hospital earlier today. He was admitted for CHF exacerbation. 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 Has a history of colon cancer status post colectomy, tumor resection. After the patient got home this evening, he had re-onset of shortness breath which got rapidly worse. His daughter put him on oxygen and brought him to the emergency department for further evaluation. Review of Systems Review of Systems Constitutional: Denies fever or chills Eyes: Denies change in visual acuity, redness, or eye pain HENT: Denies nasal congestion or sore throat Respiratory: With shortness of breath Cardiovascular: Denies chest pain or palpitations GI: Denies abdominal pain, nausea, vomiting, bloody stools or diarrhea : Denies dysuria or hematuria Musculoskeletal: Denies back pain or joint pain Integument: Denies rash or skin lesions Neurologic: Denies headache, focal weakness or sensory changes Endocrine: Denies polyuria or polydipsia All other systems were reviewed and found to be within normal limits, except as documented in this note. Current Medications Current Medications Current Medications Medications (Trade) Dose Ordered Sig/Carter Start Time Stop Time Status Last Admin Dose Admin Albuterol Sulfate (Ventolin Neb Soln) 10 mg 1X ONCE 04/03/18 21:30 04/03/18 21:31 DC 04/03/18 21:30 10 MG Albuterol/ Ipratropium (Duoneb) 3 ml 1X ONCE 04/03/18 21:30 04/03/18 21:31 DC 04/03/18 21:30 3 ML Dobutamine HCl/ Dextrose 250 ml @ 0 mls/hr 1X ONCE 04/03/18 22:00 04/03/18 22:01 DC Enalaprilat (Vasotec Inj) 0.625 mg 1X ONCE 04/03/18 22:00 04/03/18 22:01 DC 04/03/18 21:37 0.625 MG Furosemide (Lasix) 40 mg 1X ONCE 04/03/18 21:30 04/03/18 21:31 DC 04/03/18 21:36 40 MG Methylprednisolone Sodium Succinate (SOLU-Medrol 125MG VIAL) 125 mg 1X ONCE 04/03/18 21:30 04/03/18 21:31 DC 04/03/18 21:35 125 MG Nitroglycerin/ Dextrose 250 ml @ As Directed STK-MED ONCE 04/03/18 21:20 04/03/18 21:21 DC Sodium Chloride 1,000 ml @ 250 mls/hr 1X ONCE 04/03/18 21:55 04/04/18 01:54 DC 04/03/18 21:55 250 MLS/HR Allergies Allergies Allergies Coded Allergies Type Severity Reaction Last Updated Verified I S O L A T I O N *CONTACT* Allergy Unknown 03/25/17 Yes No Known Medication Allergies Allergy Unknown 03/25/17 Yes Physical Exam Physical Exam Constitutional: Well developed, well nourished, in respiratory distress with audible wheezing and increased work of breathing, non-toxic appearance. HENT: Normocephalic, atraumatic, bilateral external ears normal, oropharynx moist, no oral exudates, nose normal. Eyes: PERRLA, EOMI, conjunctiva normal, no discharge. Neck: Normal range of motion, no tenderness, supple, no stridor. Cardiovascular:Heart rate regular rhythm, no murmur Lungs & Thorax: with bilateral wheezing with rales at the bases bilaterally Abdomen: Bowel sounds normal, soft, no tenderness, no masses, no pulsatile masses. Skin: Warm, dry, no erythema, no rash. Back: No tenderness, no CVA tenderness. Extremities: No tenderness, no cyanosis, no clubbing, ROM intact, no edema. Neurologic: Alert and oriented X 3, normal motor function, normal sensory function, no focal deficits noted. Psychologic: Affect normal, judgement normal, mood normal. Current Patient Data Vital Signs Vital Signs Date Time Temp Pulse Resp B/P (MAP) Pulse Ox O2 Delivery O2 Flow Rate FiO2 04/03/18 22:04 76 18 70/54 (59) 96 BiPAP/CPAP 04/03/18 21:22 99.5 6.0 99.5 Lab Values Laboratory Tests Test 04/03/18 21:15 04/03/18 21:24 04/03/18 21:28 04/03/18 21:32 O2 Saturation 97 % (92-99) Arterial Blood pH 7.39 (7.35-7.45) Arterial Blood pCO2 at Patient Temp 37 mmHg (35-46) Arterial Blood pO2 at Patient Temp 103 mmHg (65-108) Arterial Blood HCO3 22 mmol/L (21-28) Arterial Blood Base Excess -3 mmol/L (-3-3) FiO2 70 Lactic Acid Level 2.0 mmol/L (0.4-2.0) POC Troponin I 0.01 ng/ml (<0.08) POC Hemoglobin 15.6 g/dL (14-18) POC Hematocrit 46 % (37-52) POC Sodium 138 mmol/L (135-145) POC Potassium 5.0 mmol/L (3.5-5.0) POC Chloride 104 mmol/L (98-110) POC Total CO2 25 mmol/L (23-32) Anion Gap 16 mmol/L (6-14) H POC Blood Urea Nitrogen 52 mg/dL (8-26) H POC Creatinine 2.1 mg/dL (0.5-1.4) H Glucose Level 275 mg/dL (70-99) H POC Ionized Calcium (Joanne) 1.14 mmol/L (1.13-1.32) Test 04/03/18 21:55 White Blood Count 15.9 x10^3/uL (4.0-11.0) H Red Blood Count 4.53 x10^6/uL (4.30-5.70) Hemoglobin 14.8 g/dL (13.0-17.5) Hematocrit 43.0 % (39.0-53.0) Mean Corpuscular Volume 95 fL (79-100) Mean Corpuscular Hemoglobin 33 pg (25-35) Mean Corpuscular Hemoglobin Concent 35 g/dL (31-37) Red Cell Distribution Width 14.9 % (11.5-14.5) H Platelet Count 194 x10^3/uL (140-400) Neutrophils (%) (Auto) 86 % (31-73) H Lymphocytes (%) (Auto) 7 % (24-48) L Monocytes (%) (Auto) 6 % (0-9) Eosinophils (%) (Auto) 1 % (0-3) Basophils (%) (Auto) 0 % (0-3) Neutrophils # (Auto) 13.7 x10^3uL (1.8-7.7) H Lymphocytes # (Auto) 1.1 x10^3/uL (1.0-4.8) Monocytes # (Auto) 0.9 x10^3/uL (0.0-1.1) Eosinophils # (Auto) 0.2 x10^3/uL (0.0-0.7) Basophils # (Auto) 0.0 x10^3/uL (0.0-0.2) Segmented Neutrophils % 83 % (35-66) H Lymphocytes % 15 % (24-48) L Monocytes % 2 % (0-10) Nucleated Red Blood Cells 1 Platelet Estimate Adequate (ADEQUATE) D-Dimer (Zahra) 2.98 ug/mlFEU (0.00-0.50) H Sodium Level 138 mmol/L (136-145) Potassium Level 4.8 mmol/L (3.5-5.1) Chloride Level 101 mmol/L (98-107) Carbon Dioxide Level 23 mmol/L (21-32) Anion Gap 14 (6-14) Blood Urea Nitrogen 48 mg/dL (8-26) H Creatinine 2.2 mg/dL (0.7-1.3) H Estimated GFR (Cockcroft-Gault) 28.9 BUN/Creatinine Ratio 22 (6-20) H Glucose Level 296 mg/dL (70-99) H Calcium Level 9.1 mg/dL (8.5-10.1) Total Bilirubin 1.2 mg/dL (0.2-1.0) H Aspartate Amino Transferase (AST) 14 U/L (15-37) L Alanine Aminotransferase (ALT) 25 U/L (16-63) Alkaline Phosphatase 86 U/L (46-116) Troponin I Quantitative < 0.017 ng/mL (0.000-0.055) NO-Zlj-S-Type Natriuretic Peptide 1873 pg/mL (0-449) H Total Protein 7.5 g/dL (6.4-8.2) Albumin 3.8 g/dL (3.4-5.0) Albumin/Globulin Ratio 1.0 (1.0-1.7) Laboratory Tests 04/03/18 21:55 Laboratory Tests 04/03/18 21:32 04/03/18 21:55 EKG EKG ECG 21:18 Poor baseline A.fib @101 with wide complex morphology, morphology unchanged from 04/01/18 Radiology/Procedures Radiology/Procedures [facility] [address] [place] [address] IMAGING REPORT Signed PATIENT: TONI NAIK ACCOUNT: [id number] : 1935 LOCATION: ER AGE: 82 SEX: M EXAM STATUS: REG ER ORD. PHYSICIAN: SEGUNDO JAMES MD REASON: SOB PROCEDURE: PORTABLE CHEST 1V Exam: AP portable chest History: Shortness of breath. Comparison: April 01, 2018. Findings: Cardiac silhouette appears within normal limits for size. Median sternotomy wires are present. Multi lead AICD by left subclavian approach approach is again seen. No pneumothorax is identified. There is evidence of small bilateral pleural effusions. There is interval worsening of bilateral alveolar infiltrates, compatible with worsening pulmonary edema, now thought moderate. Impression: 1. Moderate pulmonary edema, worse in the interval. Electronically signed by: Bruce Roland MD (04/03/2018 9:52 PM) [facility] DICTATED and SIGNED BY: BRUCE ROLAND MD DATE: 04/03/182150 Course & Med Decision Making Course & Med Decision Making Pertinent Labs and Imaging studies reviewed. (See chart for details) Emergency Department Course Patient presents with shortness of breath DDx-CHF exacerbation, acute coronary syndrome, respiratory failure, PE, pneumonia Patient was in respiratory distress on presentation. He was placed on BiPAP and given in-line nebulizers. Chest x-ray showed CHF. Patient was given nitroglycerin drip, enalapril, Lasix with marked improvement and resolution shortness of breath. Labs remarkable for elevated BUN/Cr, leukocytosis, elevated BNP. ECG with wide complex, troponin normal. D-dimer elevated. Patient is on Eliquis. 21:[address] Linares who agreed with admission to ICU under hospitalist. 22:[address] Naik who agreed with admission 22:40 Patient had hypotension improved after 250 mL IV normal saline bolus. Case discussed with Dr. Linarse who recommends holding on dobutamine drip for now and monitoring in the ICU. Dragon Disclaimer Dragon Disclaimer This electronic medical record was generated, in whole or in part, using a voice recognition dictation system. Departure Departure Impression: Primary Impression: Respiratory failure, acute Additional Impressions: Hypoxemia Acute exacerbation of CHF (congestive heart failure) Cardiac asthma Disposition: ADMITTED INPATIENT Admitting Physician: Tania Naik Condition: CRITICAL Referrals: TOM FOSTER MD (PCP) Critical Care Note Total Time (mins): 60 Comments Time was spent in treatment of respiratory failure with BiPAP, nebulizers & Solumedrol and CHF exacerbation with Lasix and nitroglycerin and enalapril. Critical Care Time Critical care time was 60 minutes exclusive of procedures. Problem Qualifiers SEGUNDO JAMES MD Apr 03, 2018 21:17
[2018-04-03] MEDS ORDERED: NITROGLYCERIN PREMIX 250 ML IV ONE ×2 (21:20→21:30)
[2018-04-03] MEDS ORDERED: FUROSEMIDE 40 MG/4 ML VIAL. IVP ONE (21:30)
[2018-04-03] MEDS ORDERED: IPRATRPIUM/ALBUTEROL 0.5/2.5MG 3 ML NEBU. NEB ONE (21:30)
[2018-04-03] MEDS ORDERED: methylPREDNISolone SOD SUCC PF 125 MG/2 ML VIAL. IV ONE (21:30)
[2018-04-03] MEDS ORDERED: ALBUTEROL SULFATE 2.5 MG/3 ML NEBU. CONT NEB ONE (21:30)
[2018-04-03 21:36] LABS: CREATININE ISTAT 2.1 mg/dL (0.5-1.4); HEMOGLOBIN ISTAT 15.6 g/dL (14-18); ION CA ISTAT 1.14 mmol/L (1.13-1.32)
[2018-04-03] MEDS ORDERED: ENALAPRILAT 1.25 MG/ML VIAL. IVP ONE ×2 (21:45→22:00)
[2018-04-03] MEDS ORDERED: IV NORMAL SALINE 1000ML BAG 1,000 ML IV ONE (21:55)
--- NOTE | 2018-04-03 21:56 | RAD ---
Exam: AP portable chest History: Shortness of breath. Comparison: April 01, 2018. Findings: Cardiac silhouette appears within normal limits for size. Median sternotomy wires are present. Multi lead AICD by left subclavian approach approach is again seen. No pneumothorax is identified. There is evidence of small bilateral pleural effusions. There is interval worsening of bilateral alveolar infiltrates, compatible with worsening pulmonary edema, now thought moderate. Impression: 1. Moderate pulmonary edema, worse in the interval. Electronically signed by: Bruce Truong MD (04/03/2018 9:52 PM) [facility]
[2018-04-03 22:09] LABS: BASO % 0 % (0-3); EOS # 0.2 x10^3/uL (0.0-0.7); EOS % 1 % (0-3); HEMOGLOBIN 14.8 g/dL (13.0-17.5); LYMPH # 1.1 x10^3/uL (1.0-4.8); LYMPH % 7 % (24-48); MEAN CORPUSCULAR HEMOGLOBIN 33 pg (25-35); MEAN CORPUSCULAR HGB CONC 35 g/dL (31-37); MEAN CORPUSCULAR VOLUME 95 fL (79-100); MONO # 0.9 x10^3/uL (0.0-1.1); MONO % 6 % (0-9); NEUT # 13.7 x10^3uL (1.8-7.7); NEUT % 86 % (31-73); PLATELET COUNT 194 x10^3/uL (140-400); RED BLOOD COUNT 4.53 x10^6/uL (4.30-5.70); RED CELL DISTRIBUTION WIDTH 14.9 % (11.5-14.5); WHITE BLOOD COUNT 15.9 x10^3/uL (4.0-11.0)
[2018-04-03 22:43] LABS: % LYMPHS 15 % (24-48); % MONOS 2 % (0-10); % SEGS 83 % (35-66); NUCLEATED RBC 1
[2018-04-03 22:44] LABS: PLT ESTIMATE ADEQUATE (ADEQUATE)
[2018-04-03 22:53] LABS: BILIRUBIN,URINE NEGATIVE (NEG); CLARITY,URINE CLEAR; COLOR,URINE YELLOW; NITRITE,URINE NEGATIVE (NEG); PROTEIN,URINE NEGATIVE (NEG-TRACE); UROBILINOGEN,URINE 0.2 mg/dL (0.2 mg/dL)
[2018-04-03 22:56] LABS: CALCIUM 9.1 mg/dL (8.5-10.1); CREATININE 2.2 mg/dL (0.7-1.3); GFR 28.9; POTASSIUM 4.8 mmol/L (3.5-5.1)
[2018-04-03 22:58] LABS: BACTERIA,URINE 0 /HPF (0-FEW); HYALINE CASTS, URINE MODERATE /HPF; RBC,URINE 0 /HPF (0-2); SQUAMOUS EPITHELIAL CELL,UR OCC /LPF; WBC,URINE 0 /HPF (0-4)
[2018-04-03 23:01] LABS: ALBUMIN 3.8 g/dL (3.4-5.0); TOTAL BILIRUBIN 1.2 mg/dL (0.2-1.0); TOTAL PROTEIN 7.5 g/dL (6.4-8.2)
[2018-04-03 23:15] VITALS: BP 83/48
[2018-04-03 23:30] VITALS: BP 73/50
[2018-04-03 23:45] VITALS: BP 77/51
[2018-04-04] VITALS (28 sets, daily range): BP systolic 70–122; BP diastolic 40–62
[2018-04-04 00:08] LABS: BASE EXCESS ABG -3 mmol/L (-3-3); HCO3 ABG 22 mmol/L (21-28); PCO2 ABG 37 mmHg (35-46); PO2 ABG 103 mmHg (65-108); SAT O2 ABG 97 % (92-99)
[2018-04-04] MEDS ORDERED: NOREPINEPHRIN 8MG/250ML PREMIX 250 ML IV PRN (00:30)
--- NOTE | 2018-04-04 01:54 | EKG ---
[facility] [address] [place] [address] Test Date: 2018-04-03 Test Time: 21:18:15 Pat Name: TONI NAIK Department: Room: 112 1 Gender: M Manager Hospice: : 1935 Requested By: SEGUNDO JAMES Order Number: [id number] Reading MD: Miguel Angel Sweeney MD Measurements Intervals [place] Rate: 101 P: -116 MO: 70 QRS: -111 QRSD: 166 T: 107 QT: 392 QTc: 509 Interpretive Statements V-PACED RHYTHM Electronically Signed On 04-05-2018 13:45:04 CDT by Miguel Angel Sweeney MD
[2018-04-04 05:59] LABS: FIO2 ABG 70
--- NOTE | 2018-04-04 07:53 | PDOC1 ---
History and Physical Date of Admission Date of Admission DATE: 04/04/18 TIME: 07:50 Identification/Chief Complaint Chief Complaint Shortness of breath History of Present Illness History of Present Illness Patient is a 82 year old man who presents with shortness of breath. Patient was discharged from the hospital earlier today. He was admitted for CHF exacerbation. 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 Has a history of colon cancer status post colectomy, tumor resection. After the patient got home this evening, he had re-onset of shortness breath which got rapidly worse. His daughter put him on oxygen and brought him to the emergency department for further evaluation. Past Medical History Cardiovascular: AFIB, CAD, CHF, HTN, VA, Hyperlipidemia, Valve insufficiency, Other Pulmonary: Other Heme/Onc: Cancer Renal/: Chronic renal insuff, Acute renal failure Endocrine: Diabetes Past Surgical History Past Surgical History: Pacemaker, Cholecystectomy, CABG, Colon Resection Family History Family History: Diabetes, Heart Disease, Hypertension, Other Current Problem List Problem List Problems Medical Problems: (1) Acute exacerbation of CHF (congestive heart failure) Status: Acute (2) Cardiac asthma Status: Acute (3) Hypoxemia Status: Acute (4) Respiratory failure, acute Status: Acute Current Medications Current Medications Current Medications Albuterol/ Ipratropium (Duoneb) 3 ml 1X ONCE NEB Last administered on at 21:30; Start 04/03/18 at 21:30; Stop 04/03/18 at 21:31; Status DC Albuterol Sulfate (Ventolin Neb Soln) 10 mg 1X ONCE CONT NEB Last administered on 04/03/18at 21:30; Start 04/03/18 at 21:30; Stop 04/03/18 at 21 :31; Status DC Methylprednisolone Sodium Succinate (SOLU-Medrol 125MG VIAL) 125 mg 1X ONCE IV Last administered on 04/03/18at 21:35; Start 04/03/18 at 21:30; Stop at 21:31; Status DC Furosemide (Lasix) 40 mg 1X ONCE IVP Last administered on 04/03/18at 21:36; Start 04/03/18 at 21:30; Stop 04/03/18 at 21:31; Status DC Nitroglycerin/ Dextrose 250 ml @ 3 mls/hr 1X ONCE IV Last administered on at 21:30; Start 04/03/18 at 21:30; Stop 04/07/18 at 08:49 Enalaprilat (Vasotec Inj) 1.25 mg 1X ONCE IVP ; Start 04/03/18 at 21:45; Stop 04/03/18 at 21:45; Status DC Nitroglycerin/ Dextrose 250 ml @ As Directed STK-MED ONCE IV ; Start 04/03/18 at 21:20; Stop 04/03/18 at 21:21; Status DC Enalaprilat (Vasotec Inj) 0.625 mg 1X ONCE IVP Last administered on at 21:37; Start 04/03/18 at 22:00; Stop 04/03/18 at 22:01; Status DC Dobutamine HCl/ Dextrose 250 ml @ 0 mls/hr 1X ONCE IV ; Start 04/03/18 at 22: 00; Stop 04/03/18 at 22:01; Status DC Sodium Chloride 1,000 ml @ 250 mls/hr 1X ONCE IV Last administered on at 21:55; Start 04/03/18 at 21:55; Stop 04/04/18 at 01:54; Status DC Norepinephrine Bitartrate 250 ml @ 1.875 mls/ hr CONT PRN IV SEE I/O RECORD Last administered on 04/04/18at 01:19; Start 04/04/18 at 00:30 Active Scripts Active Novolog Flexpen (Insulin Aspart) 100 Unit/1 Ml Insuln.pen 1 Unit SQ PER SLIDING SCALE SUbcutaneous injection Before meals three times daily: <150= no insulin 151-200= 2 units insulin 201-250 =3 units insulin 251-300 = 4 units insulin 301-350 = 6 units insulin 351-400 = 8 units insulin >401 call Milk Of Magnesia (Magnesium Hydroxide) 400 Mg/5 Ml Oral.susp 2,400 Mg PO PRN Q24HRS PRN Carvedilol 3.125 Mg Tablet 3.125 Mg PO BIDWMEALS Entresto 24 mg-26 mg Tablet (Sacubitril/Valsartan) 1 Each Tablet 1 Tab PO BID Thera-M Tablet (Multivits,Ca,Minerals/Iron/Fa) 1 Each Tablet 1 Tab PO DAILY Montelukast Sodium Tablet (Montelukast Sodium) 10 Mg Tablet 10 Mg PO QHS Tylenol (Acetaminophen) 325 Mg Tablet 650 Mg PO PRN Q6HRS PRN Reported Bumetanide 2 Mg Tablet 4 Mg PO DAILY Eliquis (Apixaban) 2.5 Mg Tablet 2.5 Mg PO DAILY B-12 (Cyanocobalamin (Vitamin B-12)) 1,000 Mcg Tablet 1,000 Mcg PO DAILY Potassium Chloride 10 Meq Tab.sr.24h 10 Meq PO DAILY Magnesium Oxide 400 Mg Tablet 400 Mg PO QMWF Mag-Oxide (Magnesium Oxide) 400 Mg Tablet 400 Mg PO QSUTUTH Aspirin 81 Mg Tab.chew 81 Mg PO DAILY Levothyroxine Sodium 50 Mcg Tablet 1 Tab PO DAILY NITROGLYCERIN SubLingual (Nitroglycerin) 0.4 Mg Tab.subl 0.4 Mg SL PRN Q5MIN PRN [place]-3 Fish Oil 1,000 Mg Sfgl ([place]-3/Dha/Epa/Fish Oil) 1,000 Mg Capsule 1, 000 Mg PO DAILY Crestor (Rosuvastatin Calcium) 20 Mg Tablet 20 Mg PO HS Allergies Allergies: Coded Allergies: I S O L A T I O N *CONTACT* (Verified Allergy, Unknown, 03/25/17) mrsa No Known Medication Allergies (Verified Allergy, Unknown, 03/25/17) Vitals Vitals Vital Signs Date Time Temp Pulse Resp B/P (MAP) Pulse Ox O2 Delivery O2 Flow Rate FiO2 04/04/18 06:00 74 17 89/51 (64) 97 BiPAP/CPAP 04/04/18 04:00 98.5 98.5 04/03/18 21:22 6.0 Labs Labs Laboratory Tests Test 04/03/18 21:15 04/03/18 21:24 04/03/18 21:28 04/03/18 21:32 O2 Saturation 97 % (92-99) Arterial Blood pH 7.39 (7.35-7.45) Arterial Blood pCO2 at Patient Temp 37 mmHg (35-46) Arterial Blood pO2 at Patient Temp 103 mmHg (65-108) Arterial Blood HCO3 22 mmol/L (21-28) Arterial Blood Base Excess -3 mmol/L (-3-3) FiO2 70 Lactic Acid Level 2.0 mmol/L (0.4-2.0) Bedside Troponin I 0.01 ng/ml (<0.08) Bedside Hemoglobin 15.6 g/dL (14-18) Bedside Hematocrit 46 % (37-52) Bedside Sodium 138 mmol/L (135-145) Bedside Potassium 5.0 mmol/L (3.5-5.0) Bedside Chloride 104 mmol/L (98-110) Bedside Total CO2 25 mmol/L (23-32) Anion Gap 16 mmol/L (6-14) Bedside Blood Urea Nitrogen 52 mg/dL (8-26) Bedside Creatinine 2.1 mg/dL (0.5-1.4) Glucose Level 275 mg/dL (70-99) Bedside Ionized Calcium (Joanne) 1.14 mmol/L (1.13-1.32) Test 04/03/18 21:55 04/03/18 22:47 04/04/18 01:00 04/04/18 03:45 White Blood Count 15.9 x10^3/uL (4.0-11.0) Red Blood Count 4.53 x10^6/uL (4.30-5.70) Hemoglobin 14.8 g/dL (13.0-17.5) Hematocrit 43.0 % (39.0-53.0) Mean Corpuscular Volume 95 fL (79-100) Mean Corpuscular Hemoglobin 33 pg (25-35) Mean Corpuscular Hemoglobin Concent 35 g/dL (31-37) Red Cell Distribution Width 14.9 % (11.5-14.5) Platelet Count 194 x10^3/uL (140-400) Neutrophils (%) (Auto) 86 % (31-73) Lymphocytes (%) (Auto) 7 % (24-48) Monocytes (%) (Auto) 6 % (0-9) Eosinophils (%) (Auto) 1 % (0-3) Basophils (%) (Auto) 0 % (0-3) Neutrophils # (Auto) 13.7 x10^3uL (1.8-7.7) Lymphocytes # (Auto) 1.1 x10^3/uL (1.0-4.8) Monocytes # (Auto) 0.9 x10^3/uL (0.0-1.1) Eosinophils # (Auto) 0.2 x10^3/uL (0.0-0.7) Basophils # (Auto) 0.0 x10^3/uL (0.0-0.2) Segmented Neutrophils % 83 % (35-66) Lymphocytes % 15 % (24-48) Monocytes % 2 % (0-10) Nucleated Red Blood Cells 1 Platelet Estimate Adequate (ADEQUATE) D-Dimer (Zahra) 2.98 ug/mlFEU (0.00-0.50) Sodium Level 138 mmol/L (136-145) Potassium Level 4.8 mmol/L (3.5-5.1) Chloride Level 101 mmol/L (98-107) Carbon Dioxide Level 23 mmol/L (21-32) Anion Gap 14 (6-14) Blood Urea Nitrogen 48 mg/dL (8-26) Creatinine 2.2 mg/dL (0.7-1.3) Estimated GFR (Cockcroft-Gault) 28.9 BUN/Creatinine Ratio 22 (6-20) Glucose Level 296 mg/dL (70-99) Calcium Level 9.1 mg/dL (8.5-10.1) Total Bilirubin 1.2 mg/dL (0.2-1.0) Aspartate Amino Transf (AST/SGOT) 14 U/L (15-37) Alanine Aminotransferase (ALT/SGPT) 25 U/L (16-63) Alkaline Phosphatase 86 U/L (46-116) Troponin I Quantitative < 0.017 ng/mL (0.000-0.055) 0.036 ng/mL (0.000-0.055) 0.034 ng/mL (0.000-0.055) KV-Vlt-W-Type Natriuretic Peptide 1873 pg/mL (0-449) Total Protein 7.5 g/dL (6.4-8.2) Albumin 3.8 g/dL (3.4-5.0) Albumin/Globulin Ratio 1.0 (1.0-1.7) Urine Collection Type Unknown Urine Color Yellow Urine Clarity Clear Urine pH 5.0 Urine Specific [place] 1.020 Urine Protein Negative mg/dL (NEG-TRACE) Urine Glucose (UA) Negative mg/dL (NEG) Urine Ketones (Stick) Negative mg/dL (NEG) Urine Blood Negative (NEG) Urine Nitrite Negative (NEG) Urine Bilirubin Negative (NEG) Urine Urobilinogen Dipstick 0.2 mg/dL (0.2 mg/dL) Urine Leukocyte Esterase Negative (NEG) Urine RBC 0 /HPF (0-2) Urine WBC 0 /HPF (0-4) Urine Squamous Epithelial Cells Occ /LPF Urine Bacteria 0 /HPF (0-FEW) Urine Hyaline Casts Moderate /HPF Urine Mucus Mod /LPF Laboratory Tests Test 04/03/18 21:15 04/03/18 21:24 04/03/18 21:28 04/03/18 21:32 O2 Saturation 97 % (92-99) Arterial Blood pH 7.39 (7.35-7.45) Arterial Blood pCO2 at Patient Temp 37 mmHg (35-46) Arterial Blood pO2 at Patient Temp 103 mmHg (65-108) Arterial Blood HCO3 22 mmol/L (21-28) Arterial Blood Base Excess -3 mmol/L (-3-3) FiO2 70 Lactic Acid Level 2.0 mmol/L (0.4-2.0) Bedside Troponin I 0.01 ng/ml (<0.08) Bedside Hemoglobin 15.6 g/dL (14-18) Bedside Hematocrit 46 % (37-52) Bedside Sodium 138 mmol/L (135-145) Bedside Potassium 5.0 mmol/L (3.5-5.0) Bedside Chloride 104 mmol/L (98-110) Bedside Total CO2 25 mmol/L (23-32) Anion Gap 16 mmol/L (6-14) Bedside Blood Urea Nitrogen 52 mg/dL (8-26) Bedside Creatinine 2.1 mg/dL (0.5-1.4) Glucose Level 275 mg/dL (70-99) Bedside Ionized Calcium (Joanne) 1.14 mmol/L (1.13-1.32) Test 04/03/18 21:55 04/03/18 22:47 04/04/18 01:00 04/04/18 03:45 White Blood Count 15.9 x10^3/uL (4.0-11.0) Red Blood Count 4.53 x10^6/uL (4.30-5.70) Hemoglobin 14.8 g/dL (13.0-17.5) Hematocrit 43.0 % (39.0-53.0) Mean Corpuscular Volume 95 fL (79-100) Mean Corpuscular Hemoglobin 33 pg (25-35) Mean Corpuscular Hemoglobin Concent 35 g/dL (31-37) Red Cell Distribution Width 14.9 % (11.5-14.5) Platelet Count 194 x10^3/uL (140-400) Neutrophils (%) (Auto) 86 % (31-73) Lymphocytes (%) (Auto) 7 % (24-48) Monocytes (%) (Auto) 6 % (0-9) Eosinophils (%) (Auto) 1 % (0-3) Basophils (%) (Auto) 0 % (0-3) Neutrophils # (Auto) 13.7 x10^3uL (1.8-7.7) Lymphocytes # (Auto) 1.1 x10^3/uL (1.0-4.8) Monocytes # (Auto) 0.9 x10^3/uL (0.0-1.1) Eosinophils # (Auto) 0.2 x10^3/uL (0.0-0.7) Basophils # (Auto) 0.0 x10^3/uL (0.0-0.2) Segmented Neutrophils % 83 % (35-66) Lymphocytes % 15 % (24-48) Monocytes % 2 % (0-10) Nucleated Red Blood Cells 1 Platelet Estimate Adequate (ADEQUATE) D-Dimer (Zahra) 2.98 ug/mlFEU (0.00-0.50) Sodium Level 138 mmol/L (136-145) Potassium Level 4.8 mmol/L (3.5-5.1) Chloride Level 101 mmol/L (98-107) Carbon Dioxide Level 23 mmol/L (21-32) Anion Gap 14 (6-14) Blood Urea Nitrogen 48 mg/dL (8-26) Creatinine 2.2 mg/dL (0.7-1.3) Estimated GFR (Cockcroft-Gault) 28.9 BUN/Creatinine Ratio 22 (6-20) Glucose Level 296 mg/dL (70-99) Calcium Level 9.1 mg/dL (8.5-10.1) Total Bilirubin 1.2 mg/dL (0.2-1.0) Aspartate Amino Transf (AST/SGOT) 14 U/L (15-37) Alanine Aminotransferase (ALT/SGPT) 25 U/L (16-63) Alkaline Phosphatase 86 U/L (46-116) Troponin I Quantitative < 0.017 ng/mL (0.000-0.055) 0.036 ng/mL (0.000-0.055) 0.034 ng/mL (0.000-0.055) VX-Pys-Y-Type Natriuretic Peptide 1873 pg/mL (0-449) Total Protein 7.5 g/dL (6.4-8.2) Albumin 3.8 g/dL (3.4-5.0) Albumin/Globulin Ratio 1.0 (1.0-1.7) Urine Collection Type Unknown Urine Color Yellow Urine Clarity Clear Urine pH 5.0 Urine Specific [place] 1.020 Urine Protein Negative mg/dL (NEG-TRACE) Urine Glucose (UA) Negative mg/dL (NEG) Urine Ketones (Stick) Negative mg/dL (NEG) Urine Blood Negative (NEG) Urine Nitrite Negative (NEG) Urine Bilirubin Negative (NEG) Urine Urobilinogen Dipstick 0.2 mg/dL (0.2 mg/dL) Urine Leukocyte Esterase Negative (NEG) Urine RBC 0 /HPF (0-2) Urine WBC 0 /HPF (0-4) Urine Squamous Epithelial Cells Occ /LPF Urine Bacteria 0 /HPF (0-FEW) Urine Hyaline Casts Moderate /HPF Urine Mucus Mod /LPF VTE Prophylaxis Ordered VTE Prophylaxis Devices: No VTE Pharmacological Prophylaxi: Yes NAPOLEON LUQUE MD Apr 04, 2018 07:53
[2018-04-04 08:24] LABS: BASO % 0 % (0-3); EOS % 0 % (0-3); HEMATOCRIT 39.2 % (39.0-53.0); HEMOGLOBIN 13.2 g/dL (13.0-17.5); LYMPH # 0.4 x10^3/uL (1.0-4.8); LYMPH % 3 % (24-48); MEAN CORPUSCULAR HEMOGLOBIN 32 pg (25-35); MEAN CORPUSCULAR HGB CONC 34 g/dL (31-37); MEAN CORPUSCULAR VOLUME 96 fL (79-100); MONO # 0.4 x10^3/uL (0.0-1.1); MONO % 3 % (0-9); NEUT # 13.6 x10^3uL (1.8-7.7); NEUT % 94 % (31-73); PLATELET COUNT 155 x10^3/uL (140-400); RED CELL DISTRIBUTION WIDTH 15.1 % (11.5-14.5); WHITE BLOOD COUNT 14.5 x10^3/uL (4.0-11.0)
[2018-04-04 08:35] LABS: ALBUMIN 3.4 g/dL (3.4-5.0); ALBUMIN/GLOBULIN RATIO 0.9 (1.0-1.7); CALCIUM 8.7 mg/dL (8.5-10.1); CREATININE 2.3 mg/dL (0.7-1.3); GFR 27.4; POTASSIUM 5.5 mmol/L (3.5-5.1)
--- NOTE | 2018-04-04 09:11 | RAD ---
Portable chest, 04/04/2018: HISTORY: Congestive heart failure Comparison is made to yesterday's study. A left-sided transvenous pacing device is again noted. There has been a previous median sternotomy. The heart is mildly enlarged. Perihilar infiltrates have largely cleared with improved definition of the underlying pulmonary vascularity. No new pulmonary abnormality is seen. No definite pleural fluid is evident. IMPRESSION: Resolving pulmonary edema due to congestive heart failure. Electronically signed by: Adis Otto MD (04/04/2018 9:07 AM) [facility]
[2018-04-04] MEDS ORDERED: ONDANSETRON PF 4 MG/2 ML VIAL. IV PRN (09:30)
[2018-04-04] MEDS ORDERED: NITROGLYCERIN SUBLINGUAL 0.4 MG BOTTLE OF 25. SL PRN (09:30)
[2018-04-04] MEDS ORDERED: BISACODYL 10 MG SUPP.RECT. PR PRN (09:30)
[2018-04-04] MEDS ORDERED: DEXTROSE 50% 25 GM / 50ML DISP.SYRIN. IV PRN ×2 (09:30→10:30)
[2018-04-04] MEDS ORDERED: 0.9 % SODIUM CHLORIDE 10 ML DISP.SYRIN. IV PRN (09:30)
--- NOTE | 2018-04-04 09:53 | PDOC2 ---
CONSULT Date of Consult Date of Consult DATE: 04/04/18 TIME: 09:35 Reason for Consult Reason for Consult: CHF exacerbation Referring Physician Referring Physician: Dr Mead Identification/Chief Complaint Chief Complaint Dyspnea Source Source: Patient History of Present Illness Reason for Visit: Patient is a pleasant 82 year old white male that presents with acute CHF exacerbation. He was discharged from the hospital after a 2 day stay for similar symptoms. After returning home patient began to experience SOB and wheezing, which did not improve with home oxygen. His symptoms progressively worsened so his daughter brought him to the emergency department last night. Patient currently feels well, but does have a mild nonproductive cough. Past Medical History Cardiovascular: AFIB, CAD, CHF, HTN, MS, Hyperlipidemia, Valve insufficiency, Other Pulmonary: Other Heme/Onc: Cancer Renal/: Chronic renal insuff, Acute renal failure Endocrine: Diabetes Past Surgical History Past Surgical History: Pacemaker, Cholecystectomy, CABG, Colon Resection Family History Family History: Diabetes, Heart Disease, Hypertension, Other Current Problem List Problem List Problems Medical Problems: (1) Acute exacerbation of CHF (congestive heart failure) Status: Acute (2) Cardiac asthma Status: Acute (3) Hypoxemia Status: Acute (4) Respiratory failure, acute Status: Acute Current Medications Current Medications Current Medications Albuterol/ Ipratropium (Duoneb) 3 ml 1X ONCE NEB Last administered on at 21:30; Start 04/03/18 at 21:30; Stop 04/03/18 at 21:31; Status DC Albuterol Sulfate (Ventolin Neb Soln) 10 mg 1X ONCE CONT NEB Last administered on 04/03/18at 21:30; Start 04/03/18 at 21:30; Stop 04/03/18 at 21 :31; Status DC Methylprednisolone Sodium Succinate (SOLU-Medrol 125MG VIAL) 125 mg 1X ONCE IV Last administered on 04/03/18at 21:35; Start 04/03/18 at 21:30; Stop at 21:31; Status DC Furosemide (Lasix) 40 mg 1X ONCE IVP Last administered on 04/03/18at 21:36; Start 04/03/18 at 21:30; Stop 04/03/18 at 21:31; Status DC Nitroglycerin/ Dextrose 250 ml @ 3 mls/hr 1X ONCE IV Last administered on at 21:30; Start 04/03/18 at 21:30; Stop 04/07/18 at 08:49 Enalaprilat (Vasotec Inj) 1.25 mg 1X ONCE IVP ; Start 04/03/18 at 21:45; Stop 04/03/18 at 21:45; Status DC Nitroglycerin/ Dextrose 250 ml @ As Directed STK-MED ONCE IV ; Start 04/03/18 at 21:20; Stop 04/03/18 at 21:21; Status DC Enalaprilat (Vasotec Inj) 0.625 mg 1X ONCE IVP Last administered on at 21:37; Start 04/03/18 at 22:00; Stop 04/03/18 at 22:01; Status DC Dobutamine HCl/ Dextrose 250 ml @ 0 mls/hr 1X ONCE IV ; Start 04/03/18 at 22: 00; Stop 04/03/18 at 22:01; Status DC Sodium Chloride 1,000 ml @ 250 mls/hr 1X ONCE IV Last administered on at 21:55; Start 04/03/18 at 21:55; Stop 04/04/18 at 01:54; Status DC Norepinephrine Bitartrate 250 ml @ 1.875 mls/ hr CONT PRN IV SEE I/O RECORD Last administered on 04/04/18at 01:19; Start 04/04/18 at 00:30 Ondansetron HCl (Zofran) 4 mg PRN Q6HRS PRN IV NAUSEA/VOMITING; Start at 09:30; Status UNV Sodium Chloride (Normal Saline Flush) 3 ml QSHIFT PRN IV AFTER MEDS AND BLOOD DRAWS; Start 04/04/18 at 09:30; Status UNV Senna/Docusate Sodium (Senna Plus) 1 tab BID PO ; Start 04/04/18 at 21:00; Status UNV Bisacodyl (Dulcolax Supp) 10 mg PRN DAILY PRN CA CONSTIPATION; Start 04/04/18 at 09:30; Status UNV Apixaban (Eliquis) 2.5 mg DAILY PO ; Start 04/05/18 at 09:00; Status UNV Aspirin (Children'S Aspirin) 81 mg DAILY PO ; Start 04/05/18 at 09:00; Status UNV Carvedilol (Coreg) 3.125 mg BIDWMEALS PO ; Start 04/04/18 at 17:00; Status UNV Cyanocobalamin (Vitamin B-12) 1,000 mcg DAILY PO ; Start 04/05/18 at 09:00; Status UNV Multivitamins (Thera M Plus) 1 tab DAILY PO ; Start 04/05/18 at 09:00; Status UNV Nitroglycerin (Nitrostat) 0.4 mg PRN Q5MIN PRN SL CHEST PAIN; Start 04/04/18 at 09:30; Status UNV Non-Formulary Medication (Levothyroxine Sodium ) 1 tab DAILY PO ; Start at 09:00; Status UNV Non-Formulary Medication (Magnesium Oxide ) 400 mg QMWF PO ; Start 04/04/18 at 16:00; Status UNV Non-Formulary Medication (Montelukast Sodium (Montelukast Sodium Tablet)) 10 mg QHS PO ; Start 04/04/18 at 21:00; Status UNV Non-Formulary Medication ([place]-3/Dha/Epa/ Fish Oil ([place]-3 Fish Oil 1,000 Mg Sfgl)) 1,000 mg DAILY PO ; Start 04/05/18 at 09:00; Status UNV Non-Formulary Medication (Rosuvastatin Calcium (Crestor)) 20 mg HS PO ; Start 04/04/18 at 21:00; Status UNV Non-Formulary Medication (Sacubitril/ Valsartan (Entresto 24 mg-26 mg Tablet)) 1 tab BID PO ; Start 04/04/18 at 21:00; Status UNV Insulin Human Lispro (HumaLOG) 0-7 UNITS TIDWMEALS SQ ; Start 04/04/18 at 12:00 ; Status UNV Dextrose (Dextrose 50%-Water Syringe) 12.5 gm PRN Q15MIN PRN IV SEE COMMENTS; Start 04/04/18 at 09:30; Status UNV Active Scripts Active Novolog Flexpen (Insulin Aspart) 100 Unit/1 Ml Insuln.pen 1 Unit SQ PER SLIDING SCALE SUbcutaneous injection Before meals three times daily: <150= no insulin 151-200= 2 units insulin 201-250 =3 units insulin 251-300 = 4 units insulin 301-350 = 6 units insulin 351-400 = 8 units insulin >401 call Milk Of Magnesia (Magnesium Hydroxide) 400 Mg/5 Ml Oral.susp 2,400 Mg PO PRN Q24HRS PRN Carvedilol 3.125 Mg Tablet 3.125 Mg PO BIDWMEALS Entresto 24 mg-26 mg Tablet (Sacubitril/Valsartan) 1 Each Tablet 1 Tab PO BID Thera-M Tablet (Multivits,Ca,Minerals/Iron/Fa) 1 Each Tablet 1 Tab PO DAILY Montelukast Sodium Tablet (Montelukast Sodium) 10 Mg Tablet 10 Mg PO QHS Tylenol (Acetaminophen) 325 Mg Tablet 650 Mg PO PRN Q6HRS PRN Reported Bumetanide 2 Mg Tablet 4 Mg PO DAILY Eliquis (Apixaban) 2.5 Mg Tablet 2.5 Mg PO DAILY B-12 (Cyanocobalamin (Vitamin B-12)) 1,000 Mcg Tablet 1,000 Mcg PO DAILY Potassium Chloride 10 Meq Tab.sr.24h 10 Meq PO DAILY Magnesium Oxide 400 Mg Tablet 400 Mg PO QMWF Mag-Oxide (Magnesium Oxide) 400 Mg Tablet 400 Mg PO QSUTUTH Aspirin 81 Mg Tab.chew 81 Mg PO DAILY Levothyroxine Sodium 50 Mcg Tablet 1 Tab PO DAILY NITROGLYCERIN SubLingual (Nitroglycerin) 0.4 Mg Tab.subl 0.4 Mg SL PRN Q5MIN PRN [place]-3 Fish Oil 1,000 Mg Sfgl ([place]-3/Dha/Epa/Fish Oil) 1,000 Mg Capsule 1, 000 Mg PO DAILY Crestor (Rosuvastatin Calcium) 20 Mg Tablet 20 Mg PO HS Allergies Allergies: Coded Allergies: I S O L A T I O N *CONTACT* (Verified Allergy, Unknown, 03/25/17) mrsa No Known Medication Allergies (Verified Allergy, Unknown, 03/25/17) ROS Respiratory: YES: Cough Physical Exam General: Alert, Oriented X3, Cooperative, No acute distress Lungs: Other (crackles in R lung base) Heart: Regular rate, Normal S1, Normal S2 Extremities: No clubbing, No cyanosis, No edema Vitals VITALS Vital Signs Date Time Temp Pulse Resp B/P (MAP) Pulse Ox O2 Delivery O2 Flow Rate FiO2 04/04/18 08:16 60 17 113/54 (73) 94 Nasal Cannula 3.0 04/04/18 04:00 98.5 98.5 Labs Labs Laboratory Tests Test 04/03/18 21:15 04/03/18 21:24 04/03/18 21:28 04/03/18 21:32 O2 Saturation 97 % (92-99) Arterial Blood pH 7.39 (7.35-7.45) Arterial Blood pCO2 at Patient Temp 37 mmHg (35-46) Arterial Blood pO2 at Patient Temp 103 mmHg (65-108) Arterial Blood HCO3 22 mmol/L (21-28) Arterial Blood Base Excess -3 mmol/L (-3-3) FiO2 70 Lactic Acid Level 2.0 mmol/L (0.4-2.0) Bedside Troponin I 0.01 ng/ml (<0.08) Bedside Hemoglobin 15.6 g/dL (14-18) Bedside Hematocrit 46 % (37-52) Bedside Sodium 138 mmol/L (135-145) Bedside Potassium 5.0 mmol/L (3.5-5.0) Bedside Chloride 104 mmol/L (98-110) Bedside Total CO2 25 mmol/L (23-32) Anion Gap 16 mmol/L (6-14) Bedside Blood Urea Nitrogen 52 mg/dL (8-26) Bedside Creatinine 2.1 mg/dL (0.5-1.4) Glucose Level 275 mg/dL (70-99) Bedside Ionized Calcium (Joanne) 1.14 mmol/L (1.13-1.32) Test 04/03/18 21:55 04/03/18 22:47 04/04/18 01:00 04/04/18 03:45 White Blood Count 15.9 x10^3/uL (4.0-11.0) 14.5 x10^3/uL (4.0-11.0) Red Blood Count 4.53 x10^6/uL (4.30-5.70) 4.10 x10^6/uL (4.30-5.70) Hemoglobin 14.8 g/dL (13.0-17.5) 13.2 g/dL (13.0-17.5) Hematocrit 43.0 % (39.0-53.0) 39.2 % (39.0-53.0) Mean Corpuscular Volume 95 fL (79-100) 96 fL (79-100) Mean Corpuscular Hemoglobin 33 pg (25-35) 32 pg (25-35) Mean Corpuscular Hemoglobin Concent 35 g/dL (31-37) 34 g/dL (31-37) Red Cell Distribution Width 14.9 % (11.5-14.5) 15.1 % (11.5-14.5) Platelet Count 194 x10^3/uL (140-400) 155 x10^3/uL (140-400) Neutrophils (%) (Auto) 86 % (31-73) 94 % (31-73) Lymphocytes (%) (Auto) 7 % (24-48) 3 % (24-48) Monocytes (%) (Auto) 6 % (0-9) 3 % (0-9) Eosinophils (%) (Auto) 1 % (0-3) 0 % (0-3) Basophils (%) (Auto) 0 % (0-3) 0 % (0-3) Neutrophils # (Auto) 13.7 x10^3uL (1.8-7.7) 13.6 x10^3uL (1.8-7.7) Lymphocytes # (Auto) 1.1 x10^3/uL (1.0-4.8) 0.4 x10^3/uL (1.0-4.8) Monocytes # (Auto) 0.9 x10^3/uL (0.0-1.1) 0.4 x10^3/uL (0.0-1.1) Eosinophils # (Auto) 0.2 x10^3/uL (0.0-0.7) 0.0 x10^3/uL (0.0-0.7) Basophils # (Auto) 0.0 x10^3/uL (0.0-0.2) 0.0 x10^3/uL (0.0-0.2) Segmented Neutrophils % 83 % (35-66) Lymphocytes % 15 % (24-48) Monocytes % 2 % (0-10) Nucleated Red Blood Cells 1 Platelet Estimate Adequate (ADEQUATE) D-Dimer (Zahra) 2.98 ug/mlFEU (0.00-0.50) Sodium Level 138 mmol/L (136-145) 141 mmol/L (136-145) Potassium Level 4.8 mmol/L (3.5-5.1) 5.5 mmol/L (3.5-5.1) Chloride Level 101 mmol/L (98-107) 104 mmol/L (98-107) Carbon Dioxide Level 23 mmol/L (21-32) 24 mmol/L (21-32) Anion Gap 14 (6-14) 13 (6-14) Blood Urea Nitrogen 48 mg/dL (8-26) 52 mg/dL (8-26) Creatinine 2.2 mg/dL (0.7-1.3) 2.3 mg/dL (0.7-1.3) Estimated GFR (Cockcroft-Gault) 28.9 27.4 BUN/Creatinine Ratio 22 (6-20) 23 (6-20) Glucose Level 296 mg/dL (70-99) 234 mg/dL (70-99) Calcium Level 9.1 mg/dL (8.5-10.1) 8.7 mg/dL (8.5-10.1) Total Bilirubin 1.2 mg/dL (0.2-1.0) 1.0 mg/dL (0.2-1.0) Aspartate Amino Transf (AST/SGOT) 14 U/L (15-37) 16 U/L (15-37) Alanine Aminotransferase (ALT/SGPT) 25 U/L (16-63) 22 U/L (16-63) Alkaline Phosphatase 86 U/L (46-116) 71 U/L (46-116) Troponin I Quantitative < 0.017 ng/mL (0.000-0.055) 0.036 ng/mL (0.000-0.055) 0.034 ng/mL (0.000-0.055) XK-Avd-T-Type Natriuretic Peptide 1873 pg/mL (0-449) Total Protein 7.5 g/dL (6.4-8.2) 7.0 g/dL (6.4-8.2) Albumin 3.8 g/dL (3.4-5.0) 3.4 g/dL (3.4-5.0) Albumin/Globulin Ratio 1.0 (1.0-1.7) 0.9 (1.0-1.7) Urine Collection Type Unknown Urine Color Yellow Urine Clarity Clear Urine pH 5.0 Urine Specific [place] 1.020 Urine Protein Negative mg/dL (NEG-TRACE) Urine Glucose (UA) Negative mg/dL (NEG) Urine Ketones (Stick) Negative mg/dL (NEG) Urine Blood Negative (NEG) Urine Nitrite Negative (NEG) Urine Bilirubin Negative (NEG) Urine Urobilinogen Dipstick 0.2 mg/dL (0.2 mg/dL) Urine Leukocyte Esterase Negative (NEG) Urine RBC 0 /HPF (0-2) Urine WBC 0 /HPF (0-4) Urine Squamous Epithelial Cells Occ /LPF Urine Bacteria 0 /HPF (0-FEW) Urine Hyaline Casts Moderate /HPF Urine Mucus Mod /LPF Test 04/04/18 09:14 Glucose (Fingerstick) 304 mg/dL (70-99) Laboratory Tests Test 04/03/18 21:15 04/03/18 21:24 04/03/18 21:28 04/03/18 21:32 O2 Saturation 97 % (92-99) Arterial Blood pH 7.39 (7.35-7.45) Arterial Blood pCO2 at Patient Temp 37 mmHg (35-46) Arterial Blood pO2 at Patient Temp 103 mmHg (65-108) Arterial Blood HCO3 22 mmol/L (21-28) Arterial Blood Base Excess -3 mmol/L (-3-3) FiO2 70 Lactic Acid Level 2.0 mmol/L (0.4-2.0) Bedside Troponin I 0.01 ng/ml (<0.08) Bedside Hemoglobin 15.6 g/dL (14-18) Bedside Hematocrit 46 % (37-52) Bedside Sodium 138 mmol/L (135-145) Bedside Potassium 5.0 mmol/L (3.5-5.0) Bedside Chloride 104 mmol/L (98-110) Bedside Total CO2 25 mmol/L (23-32) Anion Gap 16 mmol/L (6-14) Bedside Blood Urea Nitrogen 52 mg/dL (8-26) Bedside Creatinine 2.1 mg/dL (0.5-1.4) Glucose Level 275 mg/dL (70-99) Bedside Ionized Calcium (Joanne) 1.14 mmol/L (1.13-1.32) Test 04/03/18 21:55 04/03/18 22:47 04/04/18 01:00 04/04/18 03:45 White Blood Count 15.9 x10^3/uL (4.0-11.0) 14.5 x10^3/uL (4.0-11.0) Red Blood Count 4.53 x10^6/uL (4.30-5.70) 4.10 x10^6/uL (4.30-5.70) Hemoglobin 14.8 g/dL (13.0-17.5) 13.2 g/dL (13.0-17.5) Hematocrit 43.0 % (39.0-53.0) 39.2 % (39.0-53.0) Mean Corpuscular Volume 95 fL (79-100) 96 fL (79-100) Mean Corpuscular Hemoglobin 33 pg (25-35) 32 pg (25-35) Mean Corpuscular Hemoglobin Concent 35 g/dL (31-37) 34 g/dL (31-37) Red Cell Distribution Width 14.9 % (11.5-14.5) 15.1 % (11.5-14.5) Platelet Count 194 x10^3/uL (140-400) 155 x10^3/uL (140-400) Neutrophils (%) (Auto) 86 % (31-73) 94 % (31-73) Lymphocytes (%) (Auto) 7 % (24-48) 3 % (24-48) Monocytes (%) (Auto) 6 % (0-9) 3 % (0-9) Eosinophils (%) (Auto) 1 % (0-3) 0 % (0-3) Basophils (%) (Auto) 0 % (0-3) 0 % (0-3) Neutrophils # (Auto) 13.7 x10^3uL (1.8-7.7) 13.6 x10^3uL (1.8-7.7) Lymphocytes # (Auto) 1.1 x10^3/uL (1.0-4.8) 0.4 x10^3/uL (1.0-4.8) Monocytes # (Auto) 0.9 x10^3/uL (0.0-1.1) 0.4 x10^3/uL (0.0-1.1) Eosinophils # (Auto) 0.2 x10^3/uL (0.0-0.7) 0.0 x10^3/uL (0.0-0.7) Basophils # (Auto) 0.0 x10^3/uL (0.0-0.2) 0.0 x10^3/uL (0.0-0.2) Segmented Neutrophils % 83 % (35-66) Lymphocytes % 15 % (24-48) Monocytes % 2 % (0-10) Nucleated Red Blood Cells 1 Platelet Estimate Adequate (ADEQUATE) D-Dimer (Zahra) 2.98 ug/mlFEU (0.00-0.50) Sodium Level 138 mmol/L (136-145) 141 mmol/L (136-145) Potassium Level 4.8 mmol/L (3.5-5.1) 5.5 mmol/L (3.5-5.1) Chloride Level 101 mmol/L (98-107) 104 mmol/L (98-107) Carbon Dioxide Level 23 mmol/L (21-32) 24 mmol/L (21-32) Anion Gap 14 (6-14) 13 (6-14) Blood Urea Nitrogen 48 mg/dL (8-26) 52 mg/dL (8-26) Creatinine 2.2 mg/dL (0.7-1.3) 2.3 mg/dL (0.7-1.3) Estimated GFR (Cockcroft-Gault) 28.9 27.4 BUN/Creatinine Ratio 22 (6-20) 23 (6-20) Glucose Level 296 mg/dL (70-99) 234 mg/dL (70-99) Calcium Level 9.1 mg/dL (8.5-10.1) 8.7 mg/dL (8.5-10.1) Total Bilirubin 1.2 mg/dL (0.2-1.0) 1.0 mg/dL (0.2-1.0) Aspartate Amino Transf (AST/SGOT) 14 U/L (15-37) 16 U/L (15-37) Alanine Aminotransferase (ALT/SGPT) 25 U/L (16-63) 22 U/L (16-63) Alkaline Phosphatase 86 U/L (46-116) 71 U/L (46-116) Troponin I Quantitative < 0.017 ng/mL (0.000-0.055) 0.036 ng/mL (0.000-0.055) 0.034 ng/mL (0.000-0.055) ZL-Gqt-H-Type Natriuretic Peptide 1873 pg/mL (0-449) Total Protein 7.5 g/dL (6.4-8.2) 7.0 g/dL (6.4-8.2) Albumin 3.8 g/dL (3.4-5.0) 3.4 g/dL (3.4-5.0) Albumin/Globulin Ratio 1.0 (1.0-1.7) 0.9 (1.0-1.7) Urine Collection Type Unknown Urine Color Yellow Urine Clarity Clear Urine pH 5.0 Urine Specific [place] 1.020 Urine Protein Negative mg/dL (NEG-TRACE) Urine Glucose (UA) Negative mg/dL (NEG) Urine Ketones (Stick) Negative mg/dL (NEG) Urine Blood Negative (NEG) Urine Nitrite Negative (NEG) Urine Bilirubin Negative (NEG) Urine Urobilinogen Dipstick 0.2 mg/dL (0.2 mg/dL) Urine Leukocyte Esterase Negative (NEG) Urine RBC 0 /HPF (0-2) Urine WBC 0 /HPF (0-4) Urine Squamous Epithelial Cells Occ /LPF Urine Bacteria 0 /HPF (0-FEW) Urine Hyaline Casts Moderate /HPF Urine Mucus Mod /LPF Test 04/04/18 09:14 Glucose (Fingerstick) 304 mg/dL (70-99) Assessment/Plan Assessment/Plan Acute CHF exacerbation Begin dobutamine drip Begin Lasix drip CBC and CMP in am Thank you for asking me to participate in the care of this pt. MASTER FLORES MD Apr 04, 2018 09:53
[2018-04-04] MEDS: APIXABAN 2.5 MG TABLET. PO SCH ×2 (10:21→21:02)
[2018-04-04] MEDS: LEVOTHYROXINE 50 MCG TABLET PO SCH (10:21)
[2018-04-04] MEDS: ASPIRIN CHEWABLE 81 MG TABLET. PO SCH (10:21)
[2018-04-04] MEDS ORDERED: INSULIN LISPRO 300 UNITS/3 ML INSULN.PEN. SQ SCH (10:30)
[2018-04-04] MEDS ORDERED: ACETAMINOPHEN 325 MG TABLET. PO PRN (10:30)
[2018-04-04] MEDS ORDERED: MAGNESIUM HYDROXIDE 2,400 MG/30 ML ORAL.SUSP. PO PRN (10:30)
[2018-04-04] MEDS: CARVEDILOL 3.125 MG TABLET. PO SCH ×2 (10:40→17:17)
--- NOTE | 2018-04-04 10:43 | PDOC ---
Provider Note Provider Note Patient seen. History and Physical dictated. See dictation# [id number] TOM FOSTER MD Apr 04, 2018 10:43
[2018-04-04] MEDS ORDERED: ALBUTEROL SULFATE 2.5 MG/3 ML NEBU. NEB PRN (10:45)
[2018-04-04] MEDS: ANTI-COAG MONITOR BY PHARMACY. MC PRN (10:58)
[2018-04-04] MEDS: FUROSEMIDE INJ 100 MG in IV NORMAL SALINE 100ML 100 ML IV PRN ×2 (11:49→21:04)
[2018-04-04] MEDS: INSULIN LISPRO 300 UNITS/3 ML INSULN.PEN. SQ SCH ×2 (12:53→17:27)
[2018-04-04] MEDS: CYANOCOBALAMIN (VITAMIN B-12) 1,000 MCG TABLET. PO SCH (13:12)
[2018-04-04] MEDS: MULTIVITAMIN with MINERAL TABLET. PO SCH (13:12)
[2018-04-04] MEDS: OMEGA-3 FATTY ACIDS/FISH OIL 1,000 MG CAPSULE. PO SCH (13:12)
[2018-04-04] MEDS: SENNOSIDES/DOCUSATE 8.6/50MG TABLET. PO SCH ×2 (13:12→21:01)
--- NOTE | 2018-04-04 13:20 | CONS ---
DATE OF CONSULTATION: ATTENDING PHYSICIAN: Dr. Mead. REASON FOR CONSULTATION: Respiratory failure. HISTORY OF PRESENT ILLNESS: The patient is very well known to me. He was just recently discharged yesterday from [facility] after he was admitted for CHF and treated for CHF. He has known history of severe cardiomyopathy with an EF of 10%-15%. The patient took a shower yesterday at home and thought that the inhalation of steam may have caused him to have shortness of breath. He was wheezing, according to the , he was brought into the Emergency Room where he received Lasix. He was placed back on the dobutamine. He did transiently drop his blood pressure with Lasix to lowest of 89, but it came back. He is currently on a low dose Lasix drip. His chest x-ray actually has improved since last one. Overall, CHF has improved. Denies any headaches. No history of asthma. His bronchospasm is now resolved with Lasix. No chest pain. No increased lower extremity edema, no nausea or vomiting, no diarrhea, no dysuria. PAST MEDICAL HISTORY: Significant for AFib, CAD, CHF, severe cardiomyopathy and EF of 10%-15%, hypertension, MS, hyperlipidemia, valvular insufficiency and chronic renal insufficiency. PAST SURGICAL HISTORY: AICD, cholecystectomy, CABG and colon resection. FAMILY HISTORY: Diabetes, heart disease, and hypertension. ALLERGIES: None. CURRENT MEDICATIONS: Reviewed, as listed in the MRAD, including Lasix drip and IV dobutamine. REVIEW OF SYSTEMS: Twelve-point system obtained. Pertinent positives discussed in my history of present illness, otherwise noncontributory. All systems that were negative were reviewed as well. PHYSICAL EXAMINATION: GENERAL: He is awake, following commands. VITAL SIGNS: Reviewed. Pulse ox 94% on 3 liters. NECK: Supple. LUNGS: Clear. No wheezing. CARDIOVASCULAR: Regular rate. ABDOMEN: Soft, nontender. EXTREMITIES: With trace pitting edema. LABORATORY DATA: Reviewed. White cell count of 14.5, hemoglobin 13.2, platelets 155. ABGs with a pH of 7.39, pCO2 of 37, pO2 of 103 on 70% FiO2, now down to nasal cannula and off the BiPAP. BUN and creatinine 52 and 2.3. IMPRESSION: 1. Gsmzk-[id number]-dwmpijk hypoxic respiratory failure secondary to [id number] systolic heart failure. 2. The patient with known cardiomyopathy with an EF of 10%-15%. 3. Cardiac asthma with bronchospasm, resolving with Lasix. 4. Chronic renal insufficiency. 5. No significant history of tobacco use or asthma. RECOMMENDATIONS: 1. Discussed with Dr. Linares and discussed with RN and the patient's . We will continue with present Lasix drip. 2. Continue inotropic medication with dobutamine to improve renal perfusion. 3. Follow chest x-ray as needed. 4. P.r.n. bronchodilators. 5. Follow Cardiology's recommendation. 6. Discussed with RN and Dr. Linares. BABATUNDE THEODORE MD DR: GENOVEVA/chet JOB#: [id number] / [id number]
--- NOTE | 2018-04-04 15:01 | HP ---
ADMIT DATE: 04/03/2018 HISTORY OF PRESENT ILLNESS: This 82-year-old male who was admitted to this institution on 04/01/2018 and discharged yesterday on 04/03/2018 after being treated for acute on chronic systolic and diastolic congestive heart failure and acute pulmonary edema with multiple medications including IV dobutamine was discharged yesterday evening to home. The patient did well initially after he went home. However, last night, the patient became very short of breath and then it rapidly got worse and he was brought to the Emergency Room. He was placed on oxygen and given nitroglycerin and IV Lasix and enalapril. This did help his breathing, but subsequently he became very hypotensive and was started on IV Levophed. The patient was then admitted to Intensive Care Unit for further evaluation and management. SYSTEMS REVIEW: This morning, the patient's breathing is improving. He denies any chest pains, palpitations or diaphoresis at this time. He has occasional cough. He denies any fever or chills. Other systems reviewed and are negative. PAST MEDICAL HISTORY: The patient has had previously multiple admissions for both acute on chronic systolic and diastolic congestive heart failure with ejection fraction of 10-15%, has AICD, hypertension, atrial fibrillation, coronary artery disease, had stent and CABG, hyperlipidemia, moderate mitral regurgitation, history of right-sided pleural effusion with recurrent thoracentesis in the past. He also has had colon cancer with surgery as well as chemotherapy, chronic renal insufficiency, states 3 previous acute renal failure requiring temporary hemodialysis in 01/2017, and diabetes mellitus type 2. PAST SURGICAL HISTORY: The patient had thoracentesis in 01/2017, has permanent pacemaker converted to AICD in 01/2017, cholecystectomy, CABG and colon resection. FAMILY HISTORY: Positive for diabetes, hypertension, and heart disease. SOCIAL HISTORY: Past history of smoking. No history of alcoholism or drug abuse. ALLERGIES: None known any. MEDICATIONS: Reviewed and reconciled. PHYSICAL EXAMINATION: GENERAL: The patient is an elderly male who is alert, oriented x 3 and in mild respiratory distress. VITAL SIGNS: Temperature 98.5, pulse 74 per minute, respirations 17 per minute, blood pressure 102/58 mmHg, it had dropped to 79/51 mmHg. The patient is on Levophed drip IV. NEUROLOGIC: The patient is alert and oriented. SKIN: Warm and dry. There is no cyanosis. EYES: Pupils reacting to light. Conjunctivae pale. Sclerae muddy. HENT: Unremarkable. NECK: Supple. JVP normal. No thyromegaly. Trachea midline. LUNGS: Decreased breath sounds at bases. CARDIOVASCULAR: S1, S2 regular. ABDOMEN: Soft, nontender, bowel sounds present. EXTREMITIES: No edema. CENTRAL NERVOUS SYSTEM: Generalized weakness, alert and oriented. LABORATORY FINDINGS: Sodium 138, potassium 5, BUN 48, creatinine 2.2, glucose was 296, bilirubin 1.2, AST 14, albumin 3.8. Today, sodium is 141, potassium 5.5, BUN 52, creatinine 2.3, glucose 304. IMPRESSION: 1. 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 2. Likely exacerbation of chronic obstructive pulmonary disease. 3. Diabetes mellitus type 2, not controlled. This may be due to a stress reaction as well as IV steroids. 4. Atrial fibrillation, now in sinus rhythm. 5. Chronic kidney disease stage 3 with hyperkalemia. 6. Acute hypotension, multifactorial. The patient is on Levophed drip IV. 7. Coronary artery disease status post coronary artery bypass graft and stent placement. 8. Acute hypoxic respiratory failure. 9. Moderate mitral regurgitation. 10. Hyperlipidemia. 11. History of colon cancer. 12. History of automatic implantable cardioverter-defibrillator. 13. History of valvulopathy, moderate mitral regurgitation, tricuspid regurgitation, mild aortic regurgitation with pulmonic valve regurgitation. 14. Moderate pulmonary hypertension. PLAN: Diuretics are on hold. Hopefully, we can wean him off Levophed. He may need another treatment with IV dobutamine. Consult Dr. Linares for cardiology evaluation and management. Consult Dr. Trejo for pulmonary evaluation and management. I will start him on p.r.n. breathing treatments. He is on Singulair. For details, please review the orders. Monitor blood sugars. I will increase his sliding scale insulin. Condition and treatment discussed with the patient and his family. TOM FOSTER MD DR: IVANNA/chet JOB#: [id number] / [id number]
[2018-04-04] MEDS: MAGNESIUM OXIDE 400 MG TABLET PO SCH (16:34)
[2018-04-04] MEDS: MONTELUKAST SODIUM 10 MG TABLET. PO SCH (21:02)
[2018-04-04] MEDS: ATORVASTATIN CALCIUM 40 MG TABLET. PO SCH (21:02)
[2018-04-05] VITALS (22 sets, daily range): BP systolic 106–152; BP diastolic 55–79
[2018-04-05 05:10] LABS: BASO % 0 % (0-3); EOS % 0 % (0-3); HEMOGLOBIN 11.8 g/dL (13.0-17.5); LYMPH # 0.7 x10^3/uL (1.0-4.8); LYMPH % 5 % (24-48); MEAN CORPUSCULAR HEMOGLOBIN 32 pg (25-35); MEAN CORPUSCULAR HGB CONC 35 g/dL (31-37); MEAN CORPUSCULAR VOLUME 93 fL (79-100); MONO # 0.7 x10^3/uL (0.0-1.1); MONO % 6 % (0-9); NEUT % 89 % (31-73); PLATELET COUNT 139 x10^3/uL (140-400); RED BLOOD COUNT 3.64 x10^6/uL (4.30-5.70); RED CELL DISTRIBUTION WIDTH 14.4 % (11.5-14.5); WHITE BLOOD COUNT 12.4 x10^3/uL (4.0-11.0)
[2018-04-05 05:37] LABS: ALBUMIN 3.2 g/dL (3.4-5.0); ALBUMIN/GLOBULIN RATIO 0.9 (1.0-1.7); CALCIUM 8.5 mg/dL (8.5-10.1); CREATININE 1.9 mg/dL (0.7-1.3); GFR 34.2; MAGNESIUM 2.1 mg/dL (1.8-2.4); POTASSIUM 3.8 mmol/L (3.5-5.1); TOTAL BILIRUBIN 0.9 mg/dL (0.2-1.0); TOTAL PROTEIN 6.9 g/dL (6.4-8.2)
[2018-04-05] MEDS: LEVOTHYROXINE 50 MCG TABLET PO SCH (05:58)
[2018-04-05] MEDS: ANTI-COAG MONITOR BY PHARMACY. MC PRN (08:55)
[2018-04-05] MEDS: ASPIRIN CHEWABLE 81 MG TABLET. PO SCH (09:12)
[2018-04-05] MEDS: CARVEDILOL 3.125 MG TABLET. PO SCH ×2 (09:12→17:07)
[2018-04-05] MEDS: INSULIN LISPRO 300 UNITS/3 ML INSULN.PEN. SQ SCH ×3 (09:14→16:30)
[2018-04-05] MEDS: SACUBITRIL/VALSARTAN 24/26MG TABLET. PO SCH ×2 (09:28→20:27)
[2018-04-05] MEDS: OMEGA-3 FATTY ACIDS/FISH OIL 1,000 MG CAPSULE. PO SCH (09:28)
[2018-04-05] MEDS: SENNOSIDES/DOCUSATE 8.6/50MG TABLET. PO SCH ×2 (09:29→20:27)
[2018-04-05] MEDS: MULTIVITAMIN with MINERAL TABLET. PO SCH (09:29)
[2018-04-05] MEDS: CYANOCOBALAMIN (VITAMIN B-12) 1,000 MCG TABLET. PO SCH (09:29)
[2018-04-05] MEDS: APIXABAN 2.5 MG TABLET. PO SCH ×2 (09:29→20:27)
--- NOTE | 2018-04-05 10:27 | PDOC ---
IM PROGRESS NOTES- Subjective Subjective Dyspnea is improving. Patient is now on oxygen by nasal cannula and not requiring BiPAP. Dies any dyspnea, dizziness or abdominal pain. Objective Vitals Vital Signs Date Time Temp Pulse Resp B/P (MAP) Pulse Ox O2 Delivery O2 Flow Rate FiO2 04/05/18 09:28 76 127/65 04/05/18 09:00 18 95 Nasal Cannula 3.0 04/05/18 08:00 98.5 98.5 Input & Output Intake and Output 04/05/18 07:00 Intake Total 274.54 ml Output Total 3580 ml Balance -3305.46 ml Intake IV Total 274.54 ml Output Urine Total 3580 ml Physical Exam Physical Exam General appearance - alert,well appearing, and in mild distress and oriented to person, place, and time Mental Status - alert, oriented to person, place, and time, affect appropriate to mood Head - normal Chest -decreased breath sounds at bases Heart - S1 and S2 normal Abdomen - soft, nontender, nondistended, no masses or organomegaly Neurological - alert and oriented Musculoskeletal - no muscular tenderness noted Extremities - no pedal edema Skin - warm and dry Labs Laboratory Tests Test 04/03/18 21:15 04/03/18 21:24 04/03/18 21:28 04/03/18 21:32 O2 Saturation 97 % (92-99) Arterial Blood pH 7.39 (7.35-7.45) Arterial Blood pCO2 at Patient Temp 37 mmHg (35-46) Arterial Blood pO2 at Patient Temp 103 mmHg (65-108) Arterial Blood HCO3 22 mmol/L (21-28) Arterial Blood Base Excess -3 mmol/L (-3-3) FiO2 70 Lactic Acid Level 2.0 mmol/L (0.4-2.0) Bedside Troponin I 0.01 ng/ml (<0.08) Bedside Hemoglobin 15.6 g/dL (14-18) Bedside Hematocrit 46 % (37-52) Bedside Sodium 138 mmol/L (135-145) Bedside Potassium 5.0 mmol/L (3.5-5.0) Bedside Chloride 104 mmol/L (98-110) Bedside Total CO2 25 mmol/L (23-32) Anion Gap 16 mmol/L (6-14) Bedside Blood Urea Nitrogen 52 mg/dL (8-26) Bedside Creatinine 2.1 mg/dL (0.5-1.4) Glucose Level 275 mg/dL (70-99) Bedside Ionized Calcium (Joanne) 1.14 mmol/L (1.13-1.32) Test 04/03/18 21:55 04/03/18 22:47 04/04/18 01:00 04/04/18 03:45 White Blood Count 15.9 x10^3/uL (4.0-11.0) 14.5 x10^3/uL (4.0-11.0) Red Blood Count 4.53 x10^6/uL (4.30-5.70) 4.10 x10^6/uL (4.30-5.70) Hemoglobin 14.8 g/dL (13.0-17.5) 13.2 g/dL (13.0-17.5) Hematocrit 43.0 % (39.0-53.0) 39.2 % (39.0-53.0) Mean Corpuscular Volume 95 fL (79-100) 96 fL (79-100) Mean Corpuscular Hemoglobin 33 pg (25-35) 32 pg (25-35) Mean Corpuscular Hemoglobin Concent 35 g/dL (31-37) 34 g/dL (31-37) Red Cell Distribution Width 14.9 % (11.5-14.5) 15.1 % (11.5-14.5) Platelet Count 194 x10^3/uL (140-400) 155 x10^3/uL (140-400) Neutrophils (%) (Auto) 86 % (31-73) 94 % (31-73) Lymphocytes (%) (Auto) 7 % (24-48) 3 % (24-48) Monocytes (%) (Auto) 6 % (0-9) 3 % (0-9) Eosinophils (%) (Auto) 1 % (0-3) 0 % (0-3) Basophils (%) (Auto) 0 % (0-3) 0 % (0-3) Neutrophils # (Auto) 13.7 x10^3uL (1.8-7.7) 13.6 x10^3uL (1.8-7.7) Lymphocytes # (Auto) 1.1 x10^3/uL (1.0-4.8) 0.4 x10^3/uL (1.0-4.8) Monocytes # (Auto) 0.9 x10^3/uL (0.0-1.1) 0.4 x10^3/uL (0.0-1.1) Eosinophils # (Auto) 0.2 x10^3/uL (0.0-0.7) 0.0 x10^3/uL (0.0-0.7) Basophils # (Auto) 0.0 x10^3/uL (0.0-0.2) 0.0 x10^3/uL (0.0-0.2) Segmented Neutrophils % 83 % (35-66) Lymphocytes % 15 % (24-48) Monocytes % 2 % (0-10) Nucleated Red Blood Cells 1 Platelet Estimate Adequate (ADEQUATE) D-Dimer (Zahra) 2.98 ug/mlFEU (0.00-0.50) Sodium Level 138 mmol/L (136-145) 141 mmol/L (136-145) Potassium Level 4.8 mmol/L (3.5-5.1) 5.5 mmol/L (3.5-5.1) Chloride Level 101 mmol/L (98-107) 104 mmol/L (98-107) Carbon Dioxide Level 23 mmol/L (21-32) 24 mmol/L (21-32) Anion Gap 14 (6-14) 13 (6-14) Blood Urea Nitrogen 48 mg/dL (8-26) 52 mg/dL (8-26) Creatinine 2.2 mg/dL (0.7-1.3) 2.3 mg/dL (0.7-1.3) Estimated GFR (Cockcroft-Gault) 28.9 27.4 BUN/Creatinine Ratio 22 (6-20) 23 (6-20) Glucose Level 296 mg/dL (70-99) 234 mg/dL (70-99) Calcium Level 9.1 mg/dL (8.5-10.1) 8.7 mg/dL (8.5-10.1) Total Bilirubin 1.2 mg/dL (0.2-1.0) 1.0 mg/dL (0.2-1.0) Aspartate Amino Transf (AST/SGOT) 14 U/L (15-37) 16 U/L (15-37) Alanine Aminotransferase (ALT/SGPT) 25 U/L (16-63) 22 U/L (16-63) Alkaline Phosphatase 86 U/L (46-116) 71 U/L (46-116) Troponin I Quantitative < 0.017 ng/mL (0.000-0.055) 0.036 ng/mL (0.000-0.055) 0.034 ng/mL (0.000-0.055) PB-Qqt-M-Type Natriuretic Peptide 1873 pg/mL (0-449) Total Protein 7.5 g/dL (6.4-8.2) 7.0 g/dL (6.4-8.2) Albumin 3.8 g/dL (3.4-5.0) 3.4 g/dL (3.4-5.0) Albumin/Globulin Ratio 1.0 (1.0-1.7) 0.9 (1.0-1.7) Urine Collection Type Unknown Urine Color Yellow Urine Clarity Clear Urine pH 5.0 Urine Specific [place] 1.020 Urine Protein Negative mg/dL (NEG-TRACE) Urine Glucose (UA) Negative mg/dL (NEG) Urine Ketones (Stick) Negative mg/dL (NEG) Urine Blood Negative (NEG) Urine Nitrite Negative (NEG) Urine Bilirubin Negative (NEG) Urine Urobilinogen Dipstick 0.2 mg/dL (0.2 mg/dL) Urine Leukocyte Esterase Negative (NEG) Urine RBC 0 /HPF (0-2) Urine WBC 0 /HPF (0-4) Urine Squamous Epithelial Cells Occ /LPF Urine Bacteria 0 /HPF (0-FEW) Urine Hyaline Casts Moderate /HPF Urine Mucus Mod /LPF Test 04/04/18 09:14 04/04/18 12:40 04/04/18 16:32 04/05/18 04:00 Glucose (Fingerstick) 304 mg/dL (70-99) 274 mg/dL (70-99) 300 mg/dL (70-99) White Blood Count 12.4 x10^3/uL (4.0-11.0) Red Blood Count 3.64 x10^6/uL (4.30-5.70) Hemoglobin 11.8 g/dL (13.0-17.5) Hematocrit 34.0 % (39.0-53.0) Mean Corpuscular Volume 93 fL (79-100) Mean Corpuscular Hemoglobin 32 pg (25-35) Mean Corpuscular Hemoglobin Concent 35 g/dL (31-37) Red Cell Distribution Width 14.4 % (11.5-14.5) Platelet Count 139 x10^3/uL (140-400) Neutrophils (%) (Auto) 89 % (31-73) Lymphocytes (%) (Auto) 5 % (24-48) Monocytes (%) (Auto) 6 % (0-9) Eosinophils (%) (Auto) 0 % (0-3) Basophils (%) (Auto) 0 % (0-3) Neutrophils # (Auto) 11.0 x10^3uL (1.8-7.7) Lymphocytes # (Auto) 0.7 x10^3/uL (1.0-4.8) Monocytes # (Auto) 0.7 x10^3/uL (0.0-1.1) Eosinophils # (Auto) 0.0 x10^3/uL (0.0-0.7) Basophils # (Auto) 0.0 x10^3/uL (0.0-0.2) Sodium Level 140 mmol/L (136-145) Potassium Level 3.8 mmol/L (3.5-5.1) Chloride Level 103 mmol/L (98-107) Carbon Dioxide Level 28 mmol/L (21-32) Anion Gap 9 (6-14) Blood Urea Nitrogen 51 mg/dL (8-26) Creatinine 1.9 mg/dL (0.7-1.3) Estimated GFR (Cockcroft-Gault) 34.2 BUN/Creatinine Ratio 27 (6-20) Glucose Level 186 mg/dL (70-99) Calcium Level 8.5 mg/dL (8.5-10.1) Magnesium Level 2.1 mg/dL (1.8-2.4) Total Bilirubin 0.9 mg/dL (0.2-1.0) Aspartate Amino Transf (AST/SGOT) 10 U/L (15-37) Alanine Aminotransferase (ALT/SGPT) 20 U/L (16-63) Alkaline Phosphatase 60 U/L (46-116) Total Protein 6.9 g/dL (6.4-8.2) Albumin 3.2 g/dL (3.4-5.0) Albumin/Globulin Ratio 0.9 (1.0-1.7) Test 04/05/18 08:09 Glucose (Fingerstick) 151 mg/dL (70-99) Laboratory Tests Test 04/04/18 12:40 04/04/18 16:32 04/05/18 04:00 04/05/18 08:09 Glucose (Fingerstick) 274 mg/dL (70-99) 300 mg/dL (70-99) 151 mg/dL (70-99) White Blood Count 12.4 x10^3/uL (4.0-11.0) Red Blood Count 3.64 x10^6/uL (4.30-5.70) Hemoglobin 11.8 g/dL (13.0-17.5) Hematocrit 34.0 % (39.0-53.0) Mean Corpuscular Volume 93 fL (79-100) Mean Corpuscular Hemoglobin 32 pg (25-35) Mean Corpuscular Hemoglobin Concent 35 g/dL (31-37) Red Cell Distribution Width 14.4 % (11.5-14.5) Platelet Count 139 x10^3/uL (140-400) Neutrophils (%) (Auto) 89 % (31-73) Lymphocytes (%) (Auto) 5 % (24-48) Monocytes (%) (Auto) 6 % (0-9) Eosinophils (%) (Auto) 0 % (0-3) Basophils (%) (Auto) 0 % (0-3) Neutrophils # (Auto) 11.0 x10^3uL (1.8-7.7) Lymphocytes # (Auto) 0.7 x10^3/uL (1.0-4.8) Monocytes # (Auto) 0.7 x10^3/uL (0.0-1.1) Eosinophils # (Auto) 0.0 x10^3/uL (0.0-0.7) Basophils # (Auto) 0.0 x10^3/uL (0.0-0.2) Sodium Level 140 mmol/L (136-145) Potassium Level 3.8 mmol/L (3.5-5.1) Chloride Level 103 mmol/L (98-107) Carbon Dioxide Level 28 mmol/L (21-32) Anion Gap 9 (6-14) Blood Urea Nitrogen 51 mg/dL (8-26) Creatinine 1.9 mg/dL (0.7-1.3) Estimated GFR (Cockcroft-Gault) 34.2 BUN/Creatinine Ratio 27 (6-20) Glucose Level 186 mg/dL (70-99) Calcium Level 8.5 mg/dL (8.5-10.1) Magnesium Level 2.1 mg/dL (1.8-2.4) Total Bilirubin 0.9 mg/dL (0.2-1.0) Aspartate Amino Transf (AST/SGOT) 10 U/L (15-37) Alanine Aminotransferase (ALT/SGPT) 20 U/L (16-63) Alkaline Phosphatase 60 U/L (46-116) Total Protein 6.9 g/dL (6.4-8.2) Albumin 3.2 g/dL (3.4-5.0) Albumin/Globulin Ratio 0.9 (1.0-1.7) Meds Current Medications Acetaminophen (Tylenol) 650 mg PRN Q6HRS PRN PO Headaches, Temp > 101.5F; Start 04/04/18 at 10:30 Albuterol Sulfate (Ventolin Neb Soln) 2.5 mg PRN Q4HRS PRN NEB SHORTNESS OF BREATH; Start 04/04/18 at 10:45 Atorvastatin Calcium (Lipitor) 80 mg QHS PO Last administered on 04/04/18at 21: 02; Start 04/04/18 at 21:00 Dextrose (Dextrose 50%-Water Syringe) 12.5 gm PRN Q15MIN PRN IV SEE COMMENTS; Start 04/04/18 at 10:30 Dobutamine HCl/ Dextrose 250 ml @ 10.712 mls/ hr CONT PRN IV SEE I/O RECORD Last administered on 04/05/18at 09:30; Start 04/04/18 at 12:00 Furosemide 100 mg/ Sodium Chloride 100 ml @ 10 mls/hr CONT PRN IV SEE I/O RECORD Last administered on 04/04/18at 21:04; Start 04/04/18 at 12:00 Info (Anti-Coagulation Monitoring By Pharmacy) 1 each PRN DAILY PRN MC SEE COMMENTS Last administered on 04/05/18at 08:55; Start 10/19/18 at 11:00 Insulin Human Lispro (HumaLOG) 0-7 UNITS TIDWMEALS SQ Last administered on at 10:24; Start 04/04/18 at 10:30; Stop 04/04/18 at 10:33; Status DC Insulin Human Lispro (HumaLOG) 0-10 UNITS TIDBFRMEAL SQ Last administered on at 09:14; Start 04/04/18 at 11:30 Magnesium Hydroxide (Milk Of Magnesia) 2,400 mg PRN Q24HRS PRN PO CONSTIPATION ; Start 04/04/18 at 10:30 Magnesium Oxide (Magnesium Oxide) 400 mg [id number] PO Last administered on 04/04/18at 16:34; Start 04/04/18 at 16:00 Montelukast Sodium (Singulair) 10 mg QHS PO Last administered on 04/04/18at 21: 02; Start 04/04/18 at 21:00 Non-Formulary Medication (Magnesium Oxide (Mag-Oxide)) 400 mg QSUTUTH PO ; Start 04/06/18 at 16:00; Status UNV Sacubitril/ Valsartan (Entresto 24 Mg-26 Mg) 1 tab BID PO Last administered on 04/05/18at 09:28; Start 04/05/18 at 09:00 Assessment Assessment 1. 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 2. Likely exacerbation of chronic obstructive pulmonary disease. 3. Diabetes mellitus type 2, not controlled. This may be due to a stress reaction as well as IV steroids. 4. Atrial fibrillation, now in sinus rhythm. 5. Chronic kidney disease stage 3 with hyperkalemia. 6. Acute hypotension, multifactorial. The patient is on Levophed drip IV. 7. Coronary artery disease status post coronary artery bypass graft and stent placement. 8. Acute hypoxic respiratory failure. 9. Moderate mitral regurgitation. 10. Hyperlipidemia. 11. History of colon cancer. 12. History of automatic implantable cardioverter-defibrillator. 13. History of valvulopathy, moderate mitral regurgitation, tricuspid regurgitation, mild aortic regurgitation with pulmonic valve regurgitation. 14. Moderate pulmonary hypertension. PLAN: Diuretics are on hold. Hopefully, we can wean him off Levophed. He may need another treatment with IV dobutamine. Consult Dr. Linares for cardiology evaluation and management. Consult Dr. Trejo for pulmonary evaluation and management. I will start him on p.r.n. breathing treatments. He is on Singulair. For details, please review the orders. Monitor blood sugars. I will increase his sliding scale insulin. Condition and treatment discussed with the patient and his family. Acute pulmonary edema- improving. On IV Lasix drip. Hyperkalemia -potassium level has decreased from 5.5-3.8. It is improving. Entresto was held yesterday. Restart today. Acute hypoxic respiratory failure- improving. Patient is off BiPAP and is now on oxygen by nasal cannula. Acute hypotensionbetter. Patient is off Levophed Acute on chronic systolic and diastolic congestive heart failure- on IV dobutamine. Improving Continue care in ICU but later on may be transferred if is stable and when okay with the pharmacognosist. Plan Plan For more details regarding further plans, please refer to the orders. TOM FOSTER MD Apr 05, 2018 10:27
[2018-04-05] MEDS: FUROSEMIDE INJ 100 MG in IV NORMAL SALINE 100ML 100 ML IV PRN ×2 (11:09→20:47)
--- NOTE | 2018-04-05 11:44 | PDOC ---
PULMONARY PROGRESS NOTES Subjective no soa Vitals Vital Signs Date Time Temp Pulse Resp B/P (MAP) Pulse Ox O2 Delivery O2 Flow Rate FiO2 04/05/18 11:00 62 21 120/62 (81) 96 Nasal Cannula 3.0 04/05/18 08:00 98.5 98.5 General: Alert, No acute distress Lungs: Clear Cardiovascular: S1 Abdomen: Soft Extremities: Other Skin: Warm Labs Laboratory Tests Test 04/03/18 21:15 04/03/18 21:24 04/03/18 21:28 04/03/18 21:32 O2 Saturation 97 % (92-99) Arterial Blood pH 7.39 (7.35-7.45) Arterial Blood pCO2 at Patient Temp 37 mmHg (35-46) Arterial Blood pO2 at Patient Temp 103 mmHg (65-108) Arterial Blood HCO3 22 mmol/L (21-28) Arterial Blood Base Excess -3 mmol/L (-3-3) FiO2 70 Lactic Acid Level 2.0 mmol/L (0.4-2.0) Bedside Troponin I 0.01 ng/ml (<0.08) Bedside Hemoglobin 15.6 g/dL (14-18) Bedside Hematocrit 46 % (37-52) Bedside Sodium 138 mmol/L (135-145) Bedside Potassium 5.0 mmol/L (3.5-5.0) Bedside Chloride 104 mmol/L (98-110) Bedside Total CO2 25 mmol/L (23-32) Anion Gap 16 mmol/L (6-14) Bedside Blood Urea Nitrogen 52 mg/dL (8-26) Bedside Creatinine 2.1 mg/dL (0.5-1.4) Glucose Level 275 mg/dL (70-99) Bedside Ionized Calcium (Joanne) 1.14 mmol/L (1.13-1.32) Test 04/03/18 21:55 04/03/18 22:47 04/04/18 01:00 04/04/18 03:45 White Blood Count 15.9 x10^3/uL (4.0-11.0) 14.5 x10^3/uL (4.0-11.0) Red Blood Count 4.53 x10^6/uL (4.30-5.70) 4.10 x10^6/uL (4.30-5.70) Hemoglobin 14.8 g/dL (13.0-17.5) 13.2 g/dL (13.0-17.5) Hematocrit 43.0 % (39.0-53.0) 39.2 % (39.0-53.0) Mean Corpuscular Volume 95 fL (79-100) 96 fL (79-100) Mean Corpuscular Hemoglobin 33 pg (25-35) 32 pg (25-35) Mean Corpuscular Hemoglobin Concent 35 g/dL (31-37) 34 g/dL (31-37) Red Cell Distribution Width 14.9 % (11.5-14.5) 15.1 % (11.5-14.5) Platelet Count 194 x10^3/uL (140-400) 155 x10^3/uL (140-400) Neutrophils (%) (Auto) 86 % (31-73) 94 % (31-73) Lymphocytes (%) (Auto) 7 % (24-48) 3 % (24-48) Monocytes (%) (Auto) 6 % (0-9) 3 % (0-9) Eosinophils (%) (Auto) 1 % (0-3) 0 % (0-3) Basophils (%) (Auto) 0 % (0-3) 0 % (0-3) Neutrophils # (Auto) 13.7 x10^3uL (1.8-7.7) 13.6 x10^3uL (1.8-7.7) Lymphocytes # (Auto) 1.1 x10^3/uL (1.0-4.8) 0.4 x10^3/uL (1.0-4.8) Monocytes # (Auto) 0.9 x10^3/uL (0.0-1.1) 0.4 x10^3/uL (0.0-1.1) Eosinophils # (Auto) 0.2 x10^3/uL (0.0-0.7) 0.0 x10^3/uL (0.0-0.7) Basophils # (Auto) 0.0 x10^3/uL (0.0-0.2) 0.0 x10^3/uL (0.0-0.2) Segmented Neutrophils % 83 % (35-66) Lymphocytes % 15 % (24-48) Monocytes % 2 % (0-10) Nucleated Red Blood Cells 1 Platelet Estimate Adequate (ADEQUATE) D-Dimer (Zahra) 2.98 ug/mlFEU (0.00-0.50) Sodium Level 138 mmol/L (136-145) 141 mmol/L (136-145) Potassium Level 4.8 mmol/L (3.5-5.1) 5.5 mmol/L (3.5-5.1) Chloride Level 101 mmol/L (98-107) 104 mmol/L (98-107) Carbon Dioxide Level 23 mmol/L (21-32) 24 mmol/L (21-32) Anion Gap 14 (6-14) 13 (6-14) Blood Urea Nitrogen 48 mg/dL (8-26) 52 mg/dL (8-26) Creatinine 2.2 mg/dL (0.7-1.3) 2.3 mg/dL (0.7-1.3) Estimated GFR (Cockcroft-Gault) 28.9 27.4 BUN/Creatinine Ratio 22 (6-20) 23 (6-20) Glucose Level 296 mg/dL (70-99) 234 mg/dL (70-99) Calcium Level 9.1 mg/dL (8.5-10.1) 8.7 mg/dL (8.5-10.1) Total Bilirubin 1.2 mg/dL (0.2-1.0) 1.0 mg/dL (0.2-1.0) Aspartate Amino Transf (AST/SGOT) 14 U/L (15-37) 16 U/L (15-37) Alanine Aminotransferase (ALT/SGPT) 25 U/L (16-63) 22 U/L (16-63) Alkaline Phosphatase 86 U/L (46-116) 71 U/L (46-116) Troponin I Quantitative < 0.017 ng/mL (0.000-0.055) 0.036 ng/mL (0.000-0.055) 0.034 ng/mL (0.000-0.055) ZC-Uvj-L-Type Natriuretic Peptide 1873 pg/mL (0-449) Total Protein 7.5 g/dL (6.4-8.2) 7.0 g/dL (6.4-8.2) Albumin 3.8 g/dL (3.4-5.0) 3.4 g/dL (3.4-5.0) Albumin/Globulin Ratio 1.0 (1.0-1.7) 0.9 (1.0-1.7) Urine Collection Type Unknown Urine Color Yellow Urine Clarity Clear Urine pH 5.0 Urine Specific [place] 1.020 Urine Protein Negative mg/dL (NEG-TRACE) Urine Glucose (UA) Negative mg/dL (NEG) Urine Ketones (Stick) Negative mg/dL (NEG) Urine Blood Negative (NEG) Urine Nitrite Negative (NEG) Urine Bilirubin Negative (NEG) Urine Urobilinogen Dipstick 0.2 mg/dL (0.2 mg/dL) Urine Leukocyte Esterase Negative (NEG) Urine RBC 0 /HPF (0-2) Urine WBC 0 /HPF (0-4) Urine Squamous Epithelial Cells Occ /LPF Urine Bacteria 0 /HPF (0-FEW) Urine Hyaline Casts Moderate /HPF Urine Mucus Mod /LPF Test 04/04/18 09:14 04/04/18 12:40 04/04/18 16:32 04/05/18 04:00 Glucose (Fingerstick) 304 mg/dL (70-99) 274 mg/dL (70-99) 300 mg/dL (70-99) White Blood Count 12.4 x10^3/uL (4.0-11.0) Red Blood Count 3.64 x10^6/uL (4.30-5.70) Hemoglobin 11.8 g/dL (13.0-17.5) Hematocrit 34.0 % (39.0-53.0) Mean Corpuscular Volume 93 fL (79-100) Mean Corpuscular Hemoglobin 32 pg (25-35) Mean Corpuscular Hemoglobin Concent 35 g/dL (31-37) Red Cell Distribution Width 14.4 % (11.5-14.5) Platelet Count 139 x10^3/uL (140-400) Neutrophils (%) (Auto) 89 % (31-73) Lymphocytes (%) (Auto) 5 % (24-48) Monocytes (%) (Auto) 6 % (0-9) Eosinophils (%) (Auto) 0 % (0-3) Basophils (%) (Auto) 0 % (0-3) Neutrophils # (Auto) 11.0 x10^3uL (1.8-7.7) Lymphocytes # (Auto) 0.7 x10^3/uL (1.0-4.8) Monocytes # (Auto) 0.7 x10^3/uL (0.0-1.1) Eosinophils # (Auto) 0.0 x10^3/uL (0.0-0.7) Basophils # (Auto) 0.0 x10^3/uL (0.0-0.2) Sodium Level 140 mmol/L (136-145) Potassium Level 3.8 mmol/L (3.5-5.1) Chloride Level 103 mmol/L (98-107) Carbon Dioxide Level 28 mmol/L (21-32) Anion Gap 9 (6-14) Blood Urea Nitrogen 51 mg/dL (8-26) Creatinine 1.9 mg/dL (0.7-1.3) Estimated GFR (Cockcroft-Gault) 34.2 BUN/Creatinine Ratio 27 (6-20) Glucose Level 186 mg/dL (70-99) Calcium Level 8.5 mg/dL (8.5-10.1) Magnesium Level 2.1 mg/dL (1.8-2.4) Total Bilirubin 0.9 mg/dL (0.2-1.0) Aspartate Amino Transf (AST/SGOT) 10 U/L (15-37) Alanine Aminotransferase (ALT/SGPT) 20 U/L (16-63) Alkaline Phosphatase 60 U/L (46-116) Total Protein 6.9 g/dL (6.4-8.2) Albumin 3.2 g/dL (3.4-5.0) Albumin/Globulin Ratio 0.9 (1.0-1.7) Test 04/05/18 08:09 Glucose (Fingerstick) 151 mg/dL (70-99) Laboratory Tests Test 04/04/18 12:40 04/04/18 16:32 04/05/18 04:00 04/05/18 08:09 Glucose (Fingerstick) 274 mg/dL (70-99) 300 mg/dL (70-99) 151 mg/dL (70-99) White Blood Count 12.4 x10^3/uL (4.0-11.0) Red Blood Count 3.64 x10^6/uL (4.30-5.70) Hemoglobin 11.8 g/dL (13.0-17.5) Hematocrit 34.0 % (39.0-53.0) Mean Corpuscular Volume 93 fL (79-100) Mean Corpuscular Hemoglobin 32 pg (25-35) Mean Corpuscular Hemoglobin Concent 35 g/dL (31-37) Red Cell Distribution Width 14.4 % (11.5-14.5) Platelet Count 139 x10^3/uL (140-400) Neutrophils (%) (Auto) 89 % (31-73) Lymphocytes (%) (Auto) 5 % (24-48) Monocytes (%) (Auto) 6 % (0-9) Eosinophils (%) (Auto) 0 % (0-3) Basophils (%) (Auto) 0 % (0-3) Neutrophils # (Auto) 11.0 x10^3uL (1.8-7.7) Lymphocytes # (Auto) 0.7 x10^3/uL (1.0-4.8) Monocytes # (Auto) 0.7 x10^3/uL (0.0-1.1) Eosinophils # (Auto) 0.0 x10^3/uL (0.0-0.7) Basophils # (Auto) 0.0 x10^3/uL (0.0-0.2) Sodium Level 140 mmol/L (136-145) Potassium Level 3.8 mmol/L (3.5-5.1) Chloride Level 103 mmol/L (98-107) Carbon Dioxide Level 28 mmol/L (21-32) Anion Gap 9 (6-14) Blood Urea Nitrogen 51 mg/dL (8-26) Creatinine 1.9 mg/dL (0.7-1.3) Estimated GFR (Cockcroft-Gault) 34.2 BUN/Creatinine Ratio 27 (6-20) Glucose Level 186 mg/dL (70-99) Calcium Level 8.5 mg/dL (8.5-10.1) Magnesium Level 2.1 mg/dL (1.8-2.4) Total Bilirubin 0.9 mg/dL (0.2-1.0) Aspartate Amino Transf (AST/SGOT) 10 U/L (15-37) Alanine Aminotransferase (ALT/SGPT) 20 U/L (16-63) Alkaline Phosphatase 60 U/L (46-116) Total Protein 6.9 g/dL (6.4-8.2) Albumin 3.2 g/dL (3.4-5.0) Albumin/Globulin Ratio 0.9 (1.0-1.7) Medications Active Scripts Medications Dose Route/Sig Max Daily Dose Days Date Category Dose Instructions Bumetanide 2 Mg Tablet 4 Mg PO DAILY 04/03/18 Reported Eliquis (Apixaban) 2.5 Mg Tablet 2.5 Mg PO DAILY 04/03/18 Reported B-12 (Cyanocobalamin (Vitamin B-12)) 1,000 Mcg Tablet 1,000 Mcg PO DAILY 04/01/18 Reported Potassium Chloride 10 Meq Tab.sr.24h 10 Meq PO DAILY 04/01/18 Reported Magnesium Oxide 400 Mg Tablet 400 Mg PO QMWF 04/01/18 Reported Mag-Oxide (Magnesium Oxide) 400 Mg Tablet 400 Mg PO QSUTUTH 04/01/18 Reported Aspirin 81 Mg Tab.chew 81 Mg PO DAILY 04/01/18 Reported Levothyroxine Sodium 50 Mcg Tablet 1 Tab PO DAILY 09/21/17 Reported Novolog Flexpen (Insulin Aspart) 100 Unit/1 Ml Insuln.pen 1 Unit SQ PER SLIDING SCALE 03/21/17 Rx SUbcutaneous injection Before meals three times daily: <150= no insulin 151-200= 2 units insulin 201-250 =3 units insulin 251-300 = 4 units insulin 301-350 = 6 units insulin 351-400 = 8 units insulin >401 call Milk Of Magnesia (Magnesium Hydroxide) 400 Mg/5 Ml Oral.susp 2,400 Mg PO PRN Q24HRS PRN 03/01/17 Rx Carvedilol 3.125 Mg Tablet 3.125 Mg PO BIDWMEALS 03/01/17 Rx Entresto 24 mg-26 mg Tablet (Sacubitril/Valsartan) 1 Each Tablet 1 Tab PO BID 02/25/17 Rx Thera-M Tablet (Multivits,Ca,Minerals/Iron/Fa) 1 Each Tablet 1 Tab PO DAILY 01/30/17 Rx Montelukast Sodium Tablet (Montelukast Sodium) 10 Mg Tablet 10 Mg PO QHS 01/30/17 Rx Tylenol (Acetaminophen) 325 Mg Tablet 650 Mg PO PRN Q6HRS PRN 01/30/17 Rx NITROGLYCERIN SubLingual (Nitroglycerin) 0.4 Mg Tab.subl 0.4 Mg SL PRN Q5MIN PRN 01/23/17 Reported Nathrop-3 Fish Oil 1,000 Mg Sfgl (Nathrop-3/Dha/Epa/Fish Oil) 1,000 Mg Capsule 1,000 Mg PO DAILY 10/31/15 Reported Crestor (Rosuvastatin Calcium) 20 Mg Tablet 20 Mg PO HS 05/29/14 Reported Impression . 1. Uvrzw-mp-jayzgau hypoxic respiratory failure secondary to lveue-us-hrmxidt systolic heart failure. 2. The patient with known cardiomyopathy with an EF of 10%-15%. 3. Cardiac asthma with bronchospasm, resolving with Lasix. 4. Chronic renal insufficiency. 5. No significant history of tobacco use or asthma. Plan . 1. Discussed with Dr. Linares and discussed with RN and the patient's . We will continue with present Lasix drip. 2. Continue inotropic medication with dobutamine to improve renal perfusion. 3. Follow chest x-ray as needed. 4. P.r.n. bronchodilators. 5. Follow Cardiology's recommendation. 6. Discussed with RN and Dr. Linares. BABATUNDE THEODORE MD Apr 05, 2018 11:44
--- NOTE | 2018-04-05 13:37 | PDOC ---
PROGRESS NOTES Subjective Subjective Patient feels better today. Better urine output. Objective Objective Vital Signs Date Time Temp Pulse Resp B/P (MAP) Pulse Ox O2 Delivery O2 Flow Rate FiO2 04/05/18 12:00 61 21 108/60 (76) 97 Nasal Cannula 3.0 04/05/18 08:00 98.5 98.5 Intake and Output 04/05/18 07:00 Intake Total 274.54 ml Output Total 3580 ml Balance -3305.46 ml IV Total 274.54 ml Output Urine Total 3580 ml Physical Exam Physical Exam Moving air better, less rales. No changes in heart sounds. Less edema Assessment Assessment Patient's CHF seems to be improving. I would like to continue for another 24 hours of the dobutamine drip as well as the Lasix drip. Comment Review of Relevant I have reviewed the following items sima (where applicable) has been applied. Labs Laboratory Tests Test 04/03/18 21:15 04/03/18 21:24 04/03/18 21:28 04/03/18 21:32 O2 Saturation 97 % (92-99) Arterial Blood pH 7.39 (7.35-7.45) Arterial Blood pCO2 at Patient Temp 37 mmHg (35-46) Arterial Blood pO2 at Patient Temp 103 mmHg (65-108) Arterial Blood HCO3 22 mmol/L (21-28) Arterial Blood Base Excess -3 mmol/L (-3-3) FiO2 70 Lactic Acid Level 2.0 mmol/L (0.4-2.0) Bedside Troponin I 0.01 ng/ml (<0.08) Bedside Hemoglobin 15.6 g/dL (14-18) Bedside Hematocrit 46 % (37-52) Bedside Sodium 138 mmol/L (135-145) Bedside Potassium 5.0 mmol/L (3.5-5.0) Bedside Chloride 104 mmol/L (98-110) Bedside Total CO2 25 mmol/L (23-32) Anion Gap 16 mmol/L (6-14) Bedside Blood Urea Nitrogen 52 mg/dL (8-26) Bedside Creatinine 2.1 mg/dL (0.5-1.4) Glucose Level 275 mg/dL (70-99) Bedside Ionized Calcium (Joanne) 1.14 mmol/L (1.13-1.32) Test 04/03/18 21:55 04/03/18 22:47 04/04/18 01:00 04/04/18 03:45 White Blood Count 15.9 x10^3/uL (4.0-11.0) 14.5 x10^3/uL (4.0-11.0) Red Blood Count 4.53 x10^6/uL (4.30-5.70) 4.10 x10^6/uL (4.30-5.70) Hemoglobin 14.8 g/dL (13.0-17.5) 13.2 g/dL (13.0-17.5) Hematocrit 43.0 % (39.0-53.0) 39.2 % (39.0-53.0) Mean Corpuscular Volume 95 fL (79-100) 96 fL (79-100) Mean Corpuscular Hemoglobin 33 pg (25-35) 32 pg (25-35) Mean Corpuscular Hemoglobin Concent 35 g/dL (31-37) 34 g/dL (31-37) Red Cell Distribution Width 14.9 % (11.5-14.5) 15.1 % (11.5-14.5) Platelet Count 194 x10^3/uL (140-400) 155 x10^3/uL (140-400) Neutrophils (%) (Auto) 86 % (31-73) 94 % (31-73) Lymphocytes (%) (Auto) 7 % (24-48) 3 % (24-48) Monocytes (%) (Auto) 6 % (0-9) 3 % (0-9) Eosinophils (%) (Auto) 1 % (0-3) 0 % (0-3) Basophils (%) (Auto) 0 % (0-3) 0 % (0-3) Neutrophils # (Auto) 13.7 x10^3uL (1.8-7.7) 13.6 x10^3uL (1.8-7.7) Lymphocytes # (Auto) 1.1 x10^3/uL (1.0-4.8) 0.4 x10^3/uL (1.0-4.8) Monocytes # (Auto) 0.9 x10^3/uL (0.0-1.1) 0.4 x10^3/uL (0.0-1.1) Eosinophils # (Auto) 0.2 x10^3/uL (0.0-0.7) 0.0 x10^3/uL (0.0-0.7) Basophils # (Auto) 0.0 x10^3/uL (0.0-0.2) 0.0 x10^3/uL (0.0-0.2) Segmented Neutrophils % 83 % (35-66) Lymphocytes % 15 % (24-48) Monocytes % 2 % (0-10) Nucleated Red Blood Cells 1 Platelet Estimate Adequate (ADEQUATE) D-Dimer (Zahra) 2.98 ug/mlFEU (0.00-0.50) Sodium Level 138 mmol/L (136-145) 141 mmol/L (136-145) Potassium Level 4.8 mmol/L (3.5-5.1) 5.5 mmol/L (3.5-5.1) Chloride Level 101 mmol/L (98-107) 104 mmol/L (98-107) Carbon Dioxide Level 23 mmol/L (21-32) 24 mmol/L (21-32) Anion Gap 14 (6-14) 13 (6-14) Blood Urea Nitrogen 48 mg/dL (8-26) 52 mg/dL (8-26) Creatinine 2.2 mg/dL (0.7-1.3) 2.3 mg/dL (0.7-1.3) Estimated GFR (Cockcroft-Gault) 28.9 27.4 BUN/Creatinine Ratio 22 (6-20) 23 (6-20) Glucose Level 296 mg/dL (70-99) 234 mg/dL (70-99) Calcium Level 9.1 mg/dL (8.5-10.1) 8.7 mg/dL (8.5-10.1) Total Bilirubin 1.2 mg/dL (0.2-1.0) 1.0 mg/dL (0.2-1.0) Aspartate Amino Transf (AST/SGOT) 14 U/L (15-37) 16 U/L (15-37) Alanine Aminotransferase (ALT/SGPT) 25 U/L (16-63) 22 U/L (16-63) Alkaline Phosphatase 86 U/L (46-116) 71 U/L (46-116) Troponin I Quantitative < 0.017 ng/mL (0.000-0.055) 0.036 ng/mL (0.000-0.055) 0.034 ng/mL (0.000-0.055) QX-Jsu-P-Type Natriuretic Peptide 1873 pg/mL (0-449) Total Protein 7.5 g/dL (6.4-8.2) 7.0 g/dL (6.4-8.2) Albumin 3.8 g/dL (3.4-5.0) 3.4 g/dL (3.4-5.0) Albumin/Globulin Ratio 1.0 (1.0-1.7) 0.9 (1.0-1.7) Urine Collection Type Unknown Urine Color Yellow Urine Clarity Clear Urine pH 5.0 Urine Specific [place] 1.020 Urine Protein Negative mg/dL (NEG-TRACE) Urine Glucose (UA) Negative mg/dL (NEG) Urine Ketones (Stick) Negative mg/dL (NEG) Urine Blood Negative (NEG) Urine Nitrite Negative (NEG) Urine Bilirubin Negative (NEG) Urine Urobilinogen Dipstick 0.2 mg/dL (0.2 mg/dL) Urine Leukocyte Esterase Negative (NEG) Urine RBC 0 /HPF (0-2) Urine WBC 0 /HPF (0-4) Urine Squamous Epithelial Cells Occ /LPF Urine Bacteria 0 /HPF (0-FEW) Urine Hyaline Casts Moderate /HPF Urine Mucus Mod /LPF Test 04/04/18 09:14 04/04/18 12:40 04/04/18 16:32 04/05/18 04:00 Glucose (Fingerstick) 304 mg/dL (70-99) 274 mg/dL (70-99) 300 mg/dL (70-99) White Blood Count 12.4 x10^3/uL (4.0-11.0) Red Blood Count 3.64 x10^6/uL (4.30-5.70) Hemoglobin 11.8 g/dL (13.0-17.5) Hematocrit 34.0 % (39.0-53.0) Mean Corpuscular Volume 93 fL (79-100) Mean Corpuscular Hemoglobin 32 pg (25-35) Mean Corpuscular Hemoglobin Concent 35 g/dL (31-37) Red Cell Distribution Width 14.4 % (11.5-14.5) Platelet Count 139 x10^3/uL (140-400) Neutrophils (%) (Auto) 89 % (31-73) Lymphocytes (%) (Auto) 5 % (24-48) Monocytes (%) (Auto) 6 % (0-9) Eosinophils (%) (Auto) 0 % (0-3) Basophils (%) (Auto) 0 % (0-3) Neutrophils # (Auto) 11.0 x10^3uL (1.8-7.7) Lymphocytes # (Auto) 0.7 x10^3/uL (1.0-4.8) Monocytes # (Auto) 0.7 x10^3/uL (0.0-1.1) Eosinophils # (Auto) 0.0 x10^3/uL (0.0-0.7) Basophils # (Auto) 0.0 x10^3/uL (0.0-0.2) Sodium Level 140 mmol/L (136-145) Potassium Level 3.8 mmol/L (3.5-5.1) Chloride Level 103 mmol/L (98-107) Carbon Dioxide Level 28 mmol/L (21-32) Anion Gap 9 (6-14) Blood Urea Nitrogen 51 mg/dL (8-26) Creatinine 1.9 mg/dL (0.7-1.3) Estimated GFR (Cockcroft-Gault) 34.2 BUN/Creatinine Ratio 27 (6-20) Glucose Level 186 mg/dL (70-99) Calcium Level 8.5 mg/dL (8.5-10.1) Magnesium Level 2.1 mg/dL (1.8-2.4) Total Bilirubin 0.9 mg/dL (0.2-1.0) Aspartate Amino Transf (AST/SGOT) 10 U/L (15-37) Alanine Aminotransferase (ALT/SGPT) 20 U/L (16-63) Alkaline Phosphatase 60 U/L (46-116) Total Protein 6.9 g/dL (6.4-8.2) Albumin 3.2 g/dL (3.4-5.0) Albumin/Globulin Ratio 0.9 (1.0-1.7) Test 04/05/18 08:09 04/05/18 11:59 Glucose (Fingerstick) 151 mg/dL (70-99) 212 mg/dL (70-99) Laboratory Tests Test 04/04/18 16:32 04/05/18 04:00 04/05/18 08:09 04/05/18 11:59 Glucose (Fingerstick) 300 mg/dL (70-99) 151 mg/dL (70-99) 212 mg/dL (70-99) White Blood Count 12.4 x10^3/uL (4.0-11.0) Red Blood Count 3.64 x10^6/uL (4.30-5.70) Hemoglobin 11.8 g/dL (13.0-17.5) Hematocrit 34.0 % (39.0-53.0) Mean Corpuscular Volume 93 fL (79-100) Mean Corpuscular Hemoglobin 32 pg (25-35) Mean Corpuscular Hemoglobin Concent 35 g/dL (31-37) Red Cell Distribution Width 14.4 % (11.5-14.5) Platelet Count 139 x10^3/uL (140-400) Neutrophils (%) (Auto) 89 % (31-73) Lymphocytes (%) (Auto) 5 % (24-48) Monocytes (%) (Auto) 6 % (0-9) Eosinophils (%) (Auto) 0 % (0-3) Basophils (%) (Auto) 0 % (0-3) Neutrophils # (Auto) 11.0 x10^3uL (1.8-7.7) Lymphocytes # (Auto) 0.7 x10^3/uL (1.0-4.8) Monocytes # (Auto) 0.7 x10^3/uL (0.0-1.1) Eosinophils # (Auto) 0.0 x10^3/uL (0.0-0.7) Basophils # (Auto) 0.0 x10^3/uL (0.0-0.2) Sodium Level 140 mmol/L (136-145) Potassium Level 3.8 mmol/L (3.5-5.1) Chloride Level 103 mmol/L (98-107) Carbon Dioxide Level 28 mmol/L (21-32) Anion Gap 9 (6-14) Blood Urea Nitrogen 51 mg/dL (8-26) Creatinine 1.9 mg/dL (0.7-1.3) Estimated GFR (Cockcroft-Gault) 34.2 BUN/Creatinine Ratio 27 (6-20) Glucose Level 186 mg/dL (70-99) Calcium Level 8.5 mg/dL (8.5-10.1) Magnesium Level 2.1 mg/dL (1.8-2.4) Total Bilirubin 0.9 mg/dL (0.2-1.0) Aspartate Amino Transf (AST/SGOT) 10 U/L (15-37) Alanine Aminotransferase (ALT/SGPT) 20 U/L (16-63) Alkaline Phosphatase 60 U/L (46-116) Total Protein 6.9 g/dL (6.4-8.2) Albumin 3.2 g/dL (3.4-5.0) Albumin/Globulin Ratio 0.9 (1.0-1.7) Microbiology 04/04/18 Blood Culture - Preliminary, Resulted NO GROWTH AFTER 1 DAY Medications Current Medications Albuterol/ Ipratropium (Duoneb) 3 ml 1X ONCE NEB Last administered on at 21:30; Start 04/03/18 at 21:30; Stop 04/03/18 at 21:31; Status DC Albuterol Sulfate (Ventolin Neb Soln) 10 mg 1X ONCE CONT NEB Last administered on 04/03/18at 21:30; Start 04/03/18 at 21:30; Stop 04/03/18 at 21 :31; Status DC Methylprednisolone Sodium Succinate (SOLU-Medrol 125MG VIAL) 125 mg 1X ONCE IV Last administered on 04/03/18at 21:35; Start 04/03/18 at 21:30; Stop at 21:31; Status DC Furosemide (Lasix) 40 mg 1X ONCE IVP Last administered on 04/03/18at 21:36; Start 04/03/18 at 21:30; Stop 04/03/18 at 21:31; Status DC Nitroglycerin/ Dextrose 250 ml @ 3 mls/hr 1X ONCE IV Last administered on at 21:30; Start 04/03/18 at 21:30; Stop 04/07/18 at 08:49 Enalaprilat (Vasotec Inj) 1.25 mg 1X ONCE IVP ; Start 04/03/18 at 21:45; Stop 04/03/18 at 21:45; Status DC Nitroglycerin/ Dextrose 250 ml @ As Directed STK-MED ONCE IV ; Start 04/03/18 at 21:20; Stop 04/03/18 at 21:21; Status DC Enalaprilat (Vasotec Inj) 0.625 mg 1X ONCE IVP Last administered on at 21:37; Start 04/03/18 at 22:00; Stop 04/03/18 at 22:01; Status DC Dobutamine HCl/ Dextrose 250 ml @ 0 mls/hr 1X ONCE IV ; Start 04/03/18 at 22: 00; Stop 04/03/18 at 22:01; Status DC Sodium Chloride 1,000 ml @ 250 mls/hr 1X ONCE IV Last administered on at 21:55; Start 04/03/18 at 21:55; Stop 04/04/18 at 01:54; Status DC Norepinephrine Bitartrate 250 ml @ 1.875 mls/ hr CONT PRN IV SEE I/O RECORD Last administered on 04/04/18at 01:19; Start 04/04/18 at 00:30 Ondansetron HCl (Zofran) 4 mg PRN Q6HRS PRN IV NAUSEA/VOMITING; Start at 09:30 Sodium Chloride (Normal Saline Flush) 3 ml QSHIFT PRN IV AFTER MEDS AND BLOOD DRAWS; Start 04/04/18 at 09:30 Senna/Docusate Sodium (Senna Plus) 1 tab BID PO Last administered on at 09:29; Start 04/04/18 at 10:00 Bisacodyl (Dulcolax Supp) [address] CONSTIPATION; Start 04/04/18 at 09:30 Apixaban (Eliquis) 2.5 mg BID PO Last administered on 04/05/18at 09:29; Start 04/04/18 at 10:00 Aspirin (Children'S Aspirin) 81 mg DAILY PO Last administered on 04/05/18at 09: 12; Start 04/04/18 at 10:00 Carvedilol (Coreg) 3.125 mg BIDWMEALS PO Last administered on 04/05/18at 09:12 ; Start 04/04/18 at 10:00 Cyanocobalamin (Vitamin B-12) 1,000 mcg DAILY PO Last administered on 09:29; Start 04/04/18 at 10:00 Multivitamins (Thera M Plus) 1 tab DAILY PO Last administered on 04/05/18at 09: 29; Start 04/04/18 at 10:00 Nitroglycerin (Nitrostat) 0.4 mg PRN Q5MIN PRN SL CHEST PAIN; Start 04/04/18 at 09:30 Levothyroxine Sodium (Synthroid) 50 mcg DAILY06 PO Last administered on 05:58; Start 04/04/18 at 10:00 Magnesium Oxide (Magnesium Oxide) 400 mg [id number] PO Last administered on 04/04/18 16:34; Start 04/04/18 at 16:00 Montelukast Sodium (Singulair) 10 mg QHS PO Last administered on 04/04/18 21: 02; Start 04/04/18 at 21:00 Fish Oil (Fish Oil) 1,000 mg DAILY PO Last administered on 04/05/18 09:28; Start 04/04/18 at 10:00 Atorvastatin Calcium (Lipitor) 80 mg QHS PO Last administered on 04/04/18 21: 02; Start 04/04/18 at 21:00 Sacubitril/ Valsartan (Entresto 24 Mg-26 Mg) 1 tab BID PO Last administered on 04/05/18 09:28; Start 04/05/18 at 09:00 Insulin Human Lispro (HumaLOG) 0-7 UNITS TIDWMEALS SQ Last administered on at 10:24; Start 04/04/18 at 10:30; Stop 04/04/18 at 10:33; Status DC Dextrose (Dextrose 50%-Water Syringe) 12.5 gm PRN Q15MIN PRN IV SEE COMMENTS; Start 04/04/18 at 09:30; Stop 04/04/18 at 10:35; Status DC Acetaminophen (Tylenol) 650 mg PRN Q6HRS PRN PO Headaches, Temp > 101.5F; Start 04/04/18 at 10:30 Magnesium Hydroxide (Milk Of Magnesia) 2,400 mg PRN Q24HRS PRN PO CONSTIPATION ; Start 04/04/18 at 10:30 Non-Formulary Medication (Magnesium Oxide (Mag-Oxide)) 400 mg QSUTUTH PO ; Start 04/06/18 at 16:00; Status UNV Albuterol Sulfate (Ventolin Neb Soln) 2.5 mg PRN Q4HRS PRN NEB SHORTNESS OF BREATH; Start 04/04/18 at 10:45 Dextrose (Dextrose 50%-Water Syringe) 12.5 gm PRN Q15MIN PRN IV SEE COMMENTS; Start 04/04/18 at 10:30 Insulin Human Lispro (HumaLOG) 0-10 UNITS TIDBFRMEAL SQ Last administered on at 12:08; Start 04/04/18 at 11:30 Info (Anti-Coagulation Monitoring By Pharmacy) 1 each PRN DAILY PRN MC SEE COMMENTS Last administered on 04/05/18at 08:55; Start 04/04/18 at 11:00 Dobutamine HCl/ Dextrose 250 ml @ 10.712 mls/ hr CONT PRN IV SEE I/O RECORD Last administered on 04/05/18at 09:30; Start 04/04/18 at 12:00 Furosemide 100 mg/ Sodium Chloride 100 ml @ 10 mls/hr CONT PRN IV SEE I/O RECORD Last administered on 04/05/18at 11:09; Start 04/04/18 at 12:00 Active Scripts Active Novolog Flexpen (Insulin Aspart) 100 Unit/1 Ml Insuln.pen 1 Unit SQ PER SLIDING SCALE SUbcutaneous injection Before meals three times daily: <150= no insulin 151-200= 2 units insulin 201-250 =3 units insulin 251-300 = 4 units insulin 301-350 = 6 units insulin 351-400 = 8 units insulin >401 call Milk Of Magnesia (Magnesium Hydroxide) 400 Mg/5 Ml Oral.susp 2,400 Mg PO PRN Q24HRS PRN Carvedilol 3.125 Mg Tablet 3.125 Mg PO BIDWMEALS Entresto 24 mg-26 mg Tablet (Sacubitril/Valsartan) 1 Each Tablet 1 Tab PO BID Thera-M Tablet (Multivits,Ca,Minerals/Iron/Fa) 1 Each Tablet 1 Tab PO DAILY Montelukast Sodium Tablet (Montelukast Sodium) 10 Mg Tablet 10 Mg PO QHS Tylenol (Acetaminophen) 325 Mg Tablet 650 Mg PO PRN Q6HRS PRN Reported Bumetanide 2 Mg Tablet 4 Mg PO DAILY Eliquis (Apixaban) 2.5 Mg Tablet 2.5 Mg PO DAILY B-12 (Cyanocobalamin (Vitamin B-12)) 1,000 Mcg Tablet 1,000 Mcg PO DAILY Potassium Chloride 10 Meq Tab.sr.24h 10 Meq PO DAILY Magnesium Oxide 400 Mg Tablet 400 Mg PO QMWF Mag-Oxide (Magnesium Oxide) 400 Mg Tablet 400 Mg PO QSUTUTH Aspirin 81 Mg Tab.chew 81 Mg PO DAILY Levothyroxine Sodium 50 Mcg Tablet 1 Tab PO DAILY NITROGLYCERIN SubLingual (Nitroglycerin) 0.4 Mg Tab.subl 0.4 Mg SL PRN Q5MIN PRN [place]-3 Fish Oil 1,000 Mg Sfgl ([place]-3/Dha/Epa/Fish Oil) 1,000 Mg Capsule 1, 000 Mg PO DAILY Crestor (Rosuvastatin Calcium) 20 Mg Tablet 20 Mg PO HS Vitals/I & O Vital Sign - Last 24 Hours 04/04/18 04/04/18 04/04/18 04/04/18 14:00 15:00 16:00 16:00 Temp 98.4 98.4 Pulse 76 74 74 Resp 14 18 16 B/P (MAP) 99/52 (68) 112/59 (76) 110/59 (76) Pulse Ox 93 93 93 O2 Delivery Nasal Cannula Nasal Cannula Nasal Cannula Nasal Cannula O2 Flow Rate 3.0 3.0 3.0 3.0 04/04/18 04/04/18 04/04/18 04/04/18 17:00 18:00 19:00 20:00 Temp 98.3 98.3 Pulse 68 73 74 72 Resp 15 16 20 17 B/P (MAP) 113/57 (75) 104/55 (71) 101/50 (67) 114/55 (74) Pulse Ox 94 94 95 96 O2 Delivery Nasal Cannula Nasal Cannula Nasal Cannula Nasal Cannula O2 Flow Rate 3.0 3.0 3.0 3.0 04/04/18 04/04/18 04/04/18 04/04/18 20:00 21:00 22:00 23:00 Pulse 74 70 63 Resp 18 12 17 B/P (MAP) 121/60 (80) 117/57 (77) 122/62 (82) Pulse Ox 97 97 98 O2 Delivery Nasal Cannula Nasal Cannula Nasal Cannula Nasal Cannula O2 Flow Rate 3.0 3.0 3.0 3.0 04/04/18 04/04/18 04/05/18 04/05/18 23:45 23:59 00:00 01:00 Temp 98.4 98.4 Pulse 60 60 Resp 16 17 B/P (MAP) 122/64 (83) 113/61 (78) Pulse Ox 99 98 98 O2 Delivery BiPAP/CPAP Bi-pap BiPAP/CPAP BiPAP/CPAP 04/05/18 04/05/18 04/05/18 04/05/18 01:45 02:00 03:00 03:30 Pulse 67 62 Resp 13 14 B/P (MAP) 131/61 (84) 126/62 (83) Pulse Ox 99 98 98 99 O2 Delivery BiPAP/CPAP BiPAP/CPAP BiPAP/CPAP BiPAP/CPAP 04/05/18 04/05/18 04/05/18 04/05/18 04:00 04:00 05:00 06:00 Temp 98.1 98.1 Pulse 66 75 65 Resp 28 12 15 B/P (MAP) 135/68 (90) 134/57 (82) 152/75 (100) Pulse Ox 100 96 94 O2 Delivery BiPAP/CPAP Bi-pap BiPAP/CPAP Nasal Cannula O2 Flow Rate 3.0 04/05/18 04/05/18 04/05/18 04/05/18 07:00 08:00 08:00 09:00 Temp 98.5 98.5 Pulse 68 68 80 Resp 16 16 18 B/P (MAP) 129/61 (83) 134/79 (97) 127/65 (85) Pulse Ox 90 97 95 O2 Delivery Nasal Cannula Nasal Cannula Nasal Cannula Nasal Cannula O2 Flow Rate 3.0 3.0 3.0 3.0 04/05/18 04/05/18 04/05/18 04/05/18 09:12 09:20 09:28 10:00 Pulse 76 66 Resp 24 B/P (MAP) 134/75 127/65 113/55 (74) Pulse Ox 96 95 O2 Delivery Nasal Cannula Nasal Cannula O2 Flow Rate 3.0 3.0 04/05/18 04/05/18 11:00 12:00 Pulse 62 61 Resp 21 21 B/P (MAP) 120/62 (81) 108/60 (76) Pulse Ox 96 97 O2 Delivery Nasal Cannula Nasal Cannula O2 Flow Rate 3.0 3.0 Intake and Output 04/04/18 04/04/18 04/05/18 15:00 23:00 07:00 Intake Total 15.67 ml 132.87 ml 126 ml Output Total 580 ml 1400 ml 1600 ml Balance -564.33 ml -1267.13 ml -1474 ml MASTER FLORES MD Apr 05, 2018 13:37
[2018-04-05] MEDS: ATORVASTATIN CALCIUM 40 MG TABLET. PO SCH (20:27)
[2018-04-05] MEDS: MONTELUKAST SODIUM 10 MG TABLET. PO SCH (20:28)
[2018-04-06] VITALS (13 sets, daily range): BP systolic 107–157; BP diastolic 53–69
[2018-04-06 05:06] LABS: CALCIUM 8.4 mg/dL (8.5-10.1); CREATININE 1.8 mg/dL (0.7-1.3); GFR 36.4; POTASSIUM 3.3 mmol/L (3.5-5.1)
[2018-04-06] MEDS: LEVOTHYROXINE 50 MCG TABLET PO SCH (06:26)
[2018-04-06] MEDS: INSULIN LISPRO 300 UNITS/3 ML INSULN.PEN. SQ SCH ×3 (07:30→16:57)
[2018-04-06] MEDS: ANTI-COAG MONITOR BY PHARMACY. MC PRN (08:17)
[2018-04-06] MEDS: OMEGA-3 FATTY ACIDS/FISH OIL 1,000 MG CAPSULE. PO SCH (08:46)
[2018-04-06] MEDS: CYANOCOBALAMIN (VITAMIN B-12) 1,000 MCG TABLET. PO SCH (08:46)
[2018-04-06] MEDS: CARVEDILOL 3.125 MG TABLET. PO SCH ×2 (08:46→16:54)
[2018-04-06] MEDS: MULTIVITAMIN with MINERAL TABLET. PO SCH (08:46)
[2018-04-06] MEDS: ASPIRIN CHEWABLE 81 MG TABLET. PO SCH (08:47)
[2018-04-06] MEDS: SACUBITRIL/VALSARTAN 24/26MG TABLET. PO SCH ×2 (08:47→20:43)
[2018-04-06] MEDS: APIXABAN 2.5 MG TABLET. PO SCH ×2 (08:47→20:43)
[2018-04-06] MEDS: SENNOSIDES/DOCUSATE 8.6/50MG TABLET. PO SCH ×2 (08:47→20:46)
[2018-04-06] MEDS: POTASSIUM CHLORIDE 20 MEQ TABLET.ER. PO SCH ×2 (08:48→14:08)
--- NOTE | 2018-04-06 09:15 | PDOC ---
IM PROGRESS NOTES- Subjective Subjective Dyspnea is improving. Patient is now on oxygen by nasal cannula and not requiring BiPAP. Dies any dyspnea, dizziness or abdominal pain. Objective Vitals Vital Signs Date Time Temp Pulse Resp B/P (MAP) Pulse Ox O2 Delivery O2 Flow Rate FiO2 04/06/18 08:47 62 129/58 04/06/18 07:00 98.0 16 98 Nasal Cannula 2.0 98.0 Input & Output Intake and Output 04/06/18 07:00 Intake Total 1388 ml Output Total 5000 ml Balance -3612 ml Intake Oral 940 ml IV Total 448 ml Output Urine Total 5000 ml Physical Exam Physical Exam General appearance - alert,well appearing, and in mild distress and oriented to person, place, and time Mental Status - alert, oriented to person, place, and time, affect appropriate to mood Head - normal Chest -decreased breath sounds at bases Heart - S1 and S2 normal Abdomen - soft, nontender, nondistended, no masses or organomegaly Neurological - alert and oriented Musculoskeletal - no muscular tenderness noted Extremities - no pedal edema Skin - warm and dry Labs Laboratory Tests Test 04/04/18 09:14 04/04/18 12:40 04/04/18 16:32 04/05/18 04:00 Glucose (Fingerstick) 304 mg/dL (70-99) 274 mg/dL (70-99) 300 mg/dL (70-99) White Blood Count 12.4 x10^3/uL (4.0-11.0) Red Blood Count 3.64 x10^6/uL (4.30-5.70) Hemoglobin 11.8 g/dL (13.0-17.5) Hematocrit 34.0 % (39.0-53.0) Mean Corpuscular Volume 93 fL (79-100) Mean Corpuscular Hemoglobin 32 pg (25-35) Mean Corpuscular Hemoglobin Concent 35 g/dL (31-37) Red Cell Distribution Width 14.4 % (11.5-14.5) Platelet Count 139 x10^3/uL (140-400) Neutrophils (%) (Auto) 89 % (31-73) Lymphocytes (%) (Auto) 5 % (24-48) Monocytes (%) (Auto) 6 % (0-9) Eosinophils (%) (Auto) 0 % (0-3) Basophils (%) (Auto) 0 % (0-3) Neutrophils # (Auto) 11.0 x10^3uL (1.8-7.7) Lymphocytes # (Auto) 0.7 x10^3/uL (1.0-4.8) Monocytes # (Auto) 0.7 x10^3/uL (0.0-1.1) Eosinophils # (Auto) 0.0 x10^3/uL (0.0-0.7) Basophils # (Auto) 0.0 x10^3/uL (0.0-0.2) Sodium Level 140 mmol/L (136-145) Potassium Level 3.8 mmol/L (3.5-5.1) Chloride Level 103 mmol/L (98-107) Carbon Dioxide Level 28 mmol/L (21-32) Anion Gap 9 (6-14) Blood Urea Nitrogen 51 mg/dL (8-26) Creatinine 1.9 mg/dL (0.7-1.3) Estimated GFR (Cockcroft-Gault) 34.2 BUN/Creatinine Ratio 27 (6-20) Glucose Level 186 mg/dL (70-99) Calcium Level 8.5 mg/dL (8.5-10.1) Magnesium Level 2.1 mg/dL (1.8-2.4) Total Bilirubin 0.9 mg/dL (0.2-1.0) Aspartate Amino Transf (AST/SGOT) 10 U/L (15-37) Alanine Aminotransferase (ALT/SGPT) 20 U/L (16-63) Alkaline Phosphatase 60 U/L (46-116) Total Protein 6.9 g/dL (6.4-8.2) Albumin 3.2 g/dL (3.4-5.0) Albumin/Globulin Ratio 0.9 (1.0-1.7) Test 04/05/18 08:09 04/05/18 11:59 04/05/18 17:04 04/05/18 21:05 Glucose (Fingerstick) 151 mg/dL (70-99) 212 mg/dL (70-99) 142 mg/dL (70-99) 141 mg/dL (70-99) Test 04/06/18 04:30 04/06/18 07:20 Sodium Level 142 mmol/L (136-145) Potassium Level 3.3 mmol/L (3.5-5.1) Chloride Level 100 mmol/L (98-107) Carbon Dioxide Level 32 mmol/L (21-32) Anion Gap 10 (6-14) Blood Urea Nitrogen 49 mg/dL (8-26) Creatinine 1.8 mg/dL (0.7-1.3) Estimated GFR (Cockcroft-Gault) 36.4 Glucose Level 138 mg/dL (70-99) Calcium Level 8.4 mg/dL (8.5-10.1) Glucose (Fingerstick) 129 mg/dL (70-99) Laboratory Tests Test 04/05/18 11:59 04/05/18 17:04 04/05/18 21:05 04/06/18 04:30 Glucose (Fingerstick) 212 mg/dL (70-99) 142 mg/dL (70-99) 141 mg/dL (70-99) Sodium Level 142 mmol/L (136-145) Potassium Level 3.3 mmol/L (3.5-5.1) Chloride Level 100 mmol/L (98-107) Carbon Dioxide Level 32 mmol/L (21-32) Anion Gap 10 (6-14) Blood Urea Nitrogen 49 mg/dL (8-26) Creatinine 1.8 mg/dL (0.7-1.3) Estimated GFR (Cockcroft-Gault) 36.4 Glucose Level 138 mg/dL (70-99) Calcium Level 8.4 mg/dL (8.5-10.1) Test 04/06/18 07:20 Glucose (Fingerstick) 129 mg/dL (70-99) Meds Current Medications Non-Formulary Medication (Magnesium Oxide (Mag-Oxide)) 400 mg QSUTUTH PO ; Start 04/06/18 at 16:00; Status UNV Potassium Chloride (Klor-Con) 20 meq BID92 PO Last administered on 04/06/18at 08:48; Start 04/06/18 at 09:00 Assessment Assessment 1. 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 2. Likely exacerbation of chronic obstructive pulmonary disease. 3. Diabetes mellitus type 2, not controlled. This may be due to a stress reaction as well as IV steroids. 4. Atrial fibrillation, now in sinus rhythm. 5. Chronic kidney disease stage 3 with hyperkalemia. 6. Acute hypotension, multifactorial. The patient is on Levophed drip IV. 7. Coronary artery disease status post coronary artery bypass graft and stent placement. 8. Acute hypoxic respiratory failure. 9. Moderate mitral regurgitation. 10. Hyperlipidemia. 11. History of colon cancer. 12. History of automatic implantable cardioverter-defibrillator. 13. History of valvulopathy, moderate mitral regurgitation, tricuspid regurgitation, mild aortic regurgitation with pulmonic valve regurgitation. 14. Moderate pulmonary hypertension. PLAN: Diuretics are on hold. Hopefully, we can wean him off Levophed. He may need another treatment with IV dobutamine. Consult Dr. Linares for cardiology evaluation and management. Consult Dr. Trejo for pulmonary evaluation and management. I will start him on p.r.n. breathing treatments. He is on Singulair. For details, please review the orders. Monitor blood sugars. I will increase his sliding scale insulin. Condition and treatment discussed with the patient and his family. Acute pulmonary edema- improving. On IV Lasix drip. Hyperkalemia -potassium level has decreased from 5.5-3.8. It is improving. Entresto was held yesterday. Restarted Hypokalemia- potassium is 3.3. Replace potassium. This is most likely due to IV Lasix. Acute hypoxic respiratory failure- improving. Patient is off BiPAP and is now on oxygen by nasal cannula. Acute hypotensionbetter. Patient is off Levophed Acute on chronic systolic and diastolic congestive heart failure- on IV dobutamine and IV Lasix drip. Improving. He has lost 4 pounds. Possible discharge tomorrow if stable. Plan Plan For more details regarding further plans, please refer to the orders. TOM FOSTER MD Apr 06, 2018 09:15
--- NOTE | 2018-04-06 09:41 | DISCH ---
DISCHARGE INSTRUCTIONS Condition on Discharge Condition on Discharge: Stable Activity After Discharge Activity Instructions for Disc: Activity as tolerated Exercise Instruction after Dis: Progress as tolerated Weight Bearing Status after Di: No restrictions Diet after Discharge Diet after Discharge: Cardiac (ADA) Diet Texture: Regular Liquid Texture: Thin Liquid Swallowing Supervision: None needed Wound Incision Care Wound/Incision Care: No wound care needed Checks after Discharge Checks after discharge: Check blood press - daily, Weigh Yourself Daily Contacting the DR. after DC Call your doctor for: Concerns you may have Follow-Up Follow up with: Dr.Pratip Norris in 3 days Treatment/Equipment after DC Adaptive Equipment Issued: None Discharge Respiratory Equipmen: TOM Gayle MD Apr 06, 2018 09:41
[2018-04-06] MEDS: FUROSEMIDE INJ 100 MG in IV NORMAL SALINE 100ML 100 ML IV PRN (11:11)
--- NOTE | 2018-04-06 11:37 | PDOC ---
PULMONARY PROGRESS NOTES Subjective no soa Vitals Vital Signs Date Time Temp Pulse Resp B/P (MAP) Pulse Ox O2 Delivery O2 Flow Rate FiO2 04/06/18 10:57 98.0 61 16 157/69 (98) 98 Nasal Cannula 2.0 98.0 General: Alert, No acute distress Lungs: Clear Cardiovascular: S1 Abdomen: Soft Extremities: Other Skin: Warm Labs Laboratory Tests Test 04/04/18 12:40 04/04/18 16:32 04/05/18 04:00 04/05/18 08:09 Glucose (Fingerstick) 274 mg/dL (70-99) 300 mg/dL (70-99) 151 mg/dL (70-99) White Blood Count 12.4 x10^3/uL (4.0-11.0) Red Blood Count 3.64 x10^6/uL (4.30-5.70) Hemoglobin 11.8 g/dL (13.0-17.5) Hematocrit 34.0 % (39.0-53.0) Mean Corpuscular Volume 93 fL (79-100) Mean Corpuscular Hemoglobin 32 pg (25-35) Mean Corpuscular Hemoglobin Concent 35 g/dL (31-37) Red Cell Distribution Width 14.4 % (11.5-14.5) Platelet Count 139 x10^3/uL (140-400) Neutrophils (%) (Auto) 89 % (31-73) Lymphocytes (%) (Auto) 5 % (24-48) Monocytes (%) (Auto) 6 % (0-9) Eosinophils (%) (Auto) 0 % (0-3) Basophils (%) (Auto) 0 % (0-3) Neutrophils # (Auto) 11.0 x10^3uL (1.8-7.7) Lymphocytes # (Auto) 0.7 x10^3/uL (1.0-4.8) Monocytes # (Auto) 0.7 x10^3/uL (0.0-1.1) Eosinophils # (Auto) 0.0 x10^3/uL (0.0-0.7) Basophils # (Auto) 0.0 x10^3/uL (0.0-0.2) Sodium Level 140 mmol/L (136-145) Potassium Level 3.8 mmol/L (3.5-5.1) Chloride Level 103 mmol/L (98-107) Carbon Dioxide Level 28 mmol/L (21-32) Anion Gap 9 (6-14) Blood Urea Nitrogen 51 mg/dL (8-26) Creatinine 1.9 mg/dL (0.7-1.3) Estimated GFR (Cockcroft-Gault) 34.2 BUN/Creatinine Ratio 27 (6-20) Glucose Level 186 mg/dL (70-99) Calcium Level 8.5 mg/dL (8.5-10.1) Magnesium Level 2.1 mg/dL (1.8-2.4) Total Bilirubin 0.9 mg/dL (0.2-1.0) Aspartate Amino Transf (AST/SGOT) 10 U/L (15-37) Alanine Aminotransferase (ALT/SGPT) 20 U/L (16-63) Alkaline Phosphatase 60 U/L (46-116) Total Protein 6.9 g/dL (6.4-8.2) Albumin 3.2 g/dL (3.4-5.0) Albumin/Globulin Ratio 0.9 (1.0-1.7) Test 04/05/18 11:59 04/05/18 17:04 04/05/18 21:05 04/06/18 04:30 Glucose (Fingerstick) 212 mg/dL (70-99) 142 mg/dL (70-99) 141 mg/dL (70-99) Sodium Level 142 mmol/L (136-145) Potassium Level 3.3 mmol/L (3.5-5.1) Chloride Level 100 mmol/L (98-107) Carbon Dioxide Level 32 mmol/L (21-32) Anion Gap 10 (6-14) Blood Urea Nitrogen 49 mg/dL (8-26) Creatinine 1.8 mg/dL (0.7-1.3) Estimated GFR (Cockcroft-Gault) 36.4 Glucose Level 138 mg/dL (70-99) Calcium Level 8.4 mg/dL (8.5-10.1) Test 04/06/18 07:20 Glucose (Fingerstick) 129 mg/dL (70-99) Laboratory Tests Test 04/05/18 11:59 04/05/18 17:04 04/05/18 21:05 04/06/18 04:30 Glucose (Fingerstick) 212 mg/dL (70-99) 142 mg/dL (70-99) 141 mg/dL (70-99) Sodium Level 142 mmol/L (136-145) Potassium Level 3.3 mmol/L (3.5-5.1) Chloride Level 100 mmol/L (98-107) Carbon Dioxide Level 32 mmol/L (21-32) Anion Gap 10 (6-14) Blood Urea Nitrogen 49 mg/dL (8-26) Creatinine 1.8 mg/dL (0.7-1.3) Estimated GFR (Cockcroft-Gault) 36.4 Glucose Level 138 mg/dL (70-99) Calcium Level 8.4 mg/dL (8.5-10.1) Test 04/06/18 07:20 Glucose (Fingerstick) 129 mg/dL (70-99) Medications Active Scripts Medications Dose Route/Sig Max Daily Dose Days Date Category Dose Instructions Bumetanide 2 Mg Tablet 4 Mg PO DAILY 04/03/18 Reported Eliquis (Apixaban) 2.5 Mg Tablet 2.5 Mg PO DAILY 04/03/18 Reported B-12 (Cyanocobalamin (Vitamin B-12)) 1,000 Mcg Tablet 1,000 Mcg PO DAILY 04/01/18 Reported Potassium Chloride 10 Meq Tab.sr.24h 10 Meq PO DAILY 04/01/18 Reported Magnesium Oxide 400 Mg Tablet 400 Mg PO QMWF 04/01/18 Reported Mag-Oxide (Magnesium Oxide) 400 Mg Tablet 400 Mg PO QSUTUTH 04/01/18 Reported Aspirin 81 Mg Tab.chew 81 Mg PO DAILY 04/01/18 Reported Levothyroxine Sodium 50 Mcg Tablet 1 Tab PO DAILY 09/21/17 Reported Novolog Flexpen (Insulin Aspart) 100 Unit/1 Ml Insuln.pen 1 Unit SQ PER SLIDING SCALE 03/21/17 Rx SUbcutaneous injection Before meals three times daily: <150= no insulin 151-200= 2 units insulin 201-250 =3 units insulin 251-300 = 4 units insulin 301-350 = 6 units insulin 351-400 = 8 units insulin >401 call Milk Of Magnesia (Magnesium Hydroxide) 400 Mg/5 Ml Oral.susp 2,400 Mg PO PRN Q24HRS PRN 03/01/17 Rx Carvedilol 3.125 Mg Tablet 3.125 Mg PO BIDWMEALS 03/01/17 Rx Entresto 24 mg-26 mg Tablet (Sacubitril/Valsartan) 1 Each Tablet 1 Tab PO BID 02/25/17 Rx Thera-M Tablet (Multivits,Ca,Minerals/Iron/Fa) 1 Each Tablet 1 Tab PO DAILY 01/30/17 Rx Montelukast Sodium Tablet (Montelukast Sodium) 10 Mg Tablet 10 Mg PO QHS 01/30/17 Rx Tylenol (Acetaminophen) 325 Mg Tablet 650 Mg PO PRN Q6HRS PRN 01/30/17 Rx NITROGLYCERIN SubLingual (Nitroglycerin) 0.4 Mg Tab.subl 0.4 Mg SL PRN Q5MIN PRN 01/23/17 Reported [place]-3 Fish Oil 1,000 Mg Sfgl ([place]-3/Dha/Epa/Fish Oil) 1,000 Mg Capsule 1,000 Mg PO DAILY 10/31/15 Reported Crestor (Rosuvastatin Calcium) 20 Mg Tablet 20 Mg PO HS 05/29/14 Reported Impression . 1. Tihpo-wo-nznjuns hypoxic respiratory failure secondary to ityyw-hf-pofpntn systolic heart failure. 2. The patient with known cardiomyopathy with an EF of 10%-15%. 3. Cardiac asthma with bronchospasm, resolving with Lasix. 4. Chronic renal insufficiency. 5. No significant history of tobacco use or asthma. Plan . 1. Discussed with Dr. Linares and discussed with RN and the patient's . We will continue with present Lasix drip. 2. Continue inotropic medication with dobutamine to improve renal perfusion. 3. Follow chest x-ray as needed. 4. P.r.n. bronchodilators. 5. Follow Cardiology's recommendation. 6. Discussed with RN and Dr. Linares. BABATUNDE THEODORE MD Apr 06, 2018 11:37
[2018-04-06] MEDS ORDERED: MAGNESIUM OXIDE 400 MG PO SCH (16:00)
--- NOTE | 2018-04-06 16:08 | PDOC ---
PROGRESS NOTES Subjective Subjective Patient feels better today. No dyspnea at this point. Objective Objective Vital Signs Date Time Temp Pulse Resp B/P (MAP) Pulse Ox O2 Delivery O2 Flow Rate FiO2 04/06/18 14:52 98.2 61 18 124/58 (80) 96 Nasal Cannula 2.0 98.2 Intake and Output 04/06/18 07:00 Intake Total 1388 ml Output Total 5000 ml Balance -3612 ml Intake Oral 940 ml IV Total 448 ml Output Urine Total 5000 ml Physical Exam Physical Exam Lungs are clear. Moving air better. Heart sounds unchanged. Extremities no edema Assessment Assessment Patient appears to be compensated today. Will DC the Lasix drip and wean off the dobutamine drip at 2 mL per hour. Resume Bumex 4 mg by mouth daily. Given a dose today. Comment Review of Relevant I have reviewed the following items sima (where applicable) has been applied. Labs Laboratory Tests Test 04/04/18 16:32 04/05/18 04:00 04/05/18 08:09 04/05/18 11:59 Glucose (Fingerstick) 300 mg/dL (70-99) 151 mg/dL (70-99) 212 mg/dL (70-99) White Blood Count 12.4 x10^3/uL (4.0-11.0) Red Blood Count 3.64 x10^6/uL (4.30-5.70) Hemoglobin 11.8 g/dL (13.0-17.5) Hematocrit 34.0 % (39.0-53.0) Mean Corpuscular Volume 93 fL (79-100) Mean Corpuscular Hemoglobin 32 pg (25-35) Mean Corpuscular Hemoglobin Concent 35 g/dL (31-37) Red Cell Distribution Width 14.4 % (11.5-14.5) Platelet Count 139 x10^3/uL (140-400) Neutrophils (%) (Auto) 89 % (31-73) Lymphocytes (%) (Auto) 5 % (24-48) Monocytes (%) (Auto) 6 % (0-9) Eosinophils (%) (Auto) 0 % (0-3) Basophils (%) (Auto) 0 % (0-3) Neutrophils # (Auto) 11.0 x10^3uL (1.8-7.7) Lymphocytes # (Auto) 0.7 x10^3/uL (1.0-4.8) Monocytes # (Auto) 0.7 x10^3/uL (0.0-1.1) Eosinophils # (Auto) 0.0 x10^3/uL (0.0-0.7) Basophils # (Auto) 0.0 x10^3/uL (0.0-0.2) Sodium Level 140 mmol/L (136-145) Potassium Level 3.8 mmol/L (3.5-5.1) Chloride Level 103 mmol/L (98-107) Carbon Dioxide Level 28 mmol/L (21-32) Anion Gap 9 (6-14) Blood Urea Nitrogen 51 mg/dL (8-26) Creatinine 1.9 mg/dL (0.7-1.3) Estimated GFR (Cockcroft-Gault) 34.2 BUN/Creatinine Ratio 27 (6-20) Glucose Level 186 mg/dL (70-99) Calcium Level 8.5 mg/dL (8.5-10.1) Magnesium Level 2.1 mg/dL (1.8-2.4) Total Bilirubin 0.9 mg/dL (0.2-1.0) Aspartate Amino Transf (AST/SGOT) 10 U/L (15-37) Alanine Aminotransferase (ALT/SGPT) 20 U/L (16-63) Alkaline Phosphatase 60 U/L (46-116) Total Protein 6.9 g/dL (6.4-8.2) Albumin 3.2 g/dL (3.4-5.0) Albumin/Globulin Ratio 0.9 (1.0-1.7) Test 04/05/18 17:04 04/05/18 21:05 04/06/18 04:30 04/06/18 07:20 Glucose (Fingerstick) 142 mg/dL (70-99) 141 mg/dL (70-99) 129 mg/dL (70-99) Sodium Level 142 mmol/L (136-145) Potassium Level 3.3 mmol/L (3.5-5.1) Chloride Level 100 mmol/L (98-107) Carbon Dioxide Level 32 mmol/L (21-32) Anion Gap 10 (6-14) Blood Urea Nitrogen 49 mg/dL (8-26) Creatinine 1.8 mg/dL (0.7-1.3) Estimated GFR (Cockcroft-Gault) 36.4 Glucose Level 138 mg/dL (70-99) Calcium Level 8.4 mg/dL (8.5-10.1) Test 04/06/18 11:53 Glucose (Fingerstick) 249 mg/dL (70-99) Laboratory Tests Test 04/05/18 17:04 04/05/18 21:05 04/06/18 04:30 04/06/18 07:20 Glucose (Fingerstick) 142 mg/dL (70-99) 141 mg/dL (70-99) 129 mg/dL (70-99) Sodium Level 142 mmol/L (136-145) Potassium Level 3.3 mmol/L (3.5-5.1) Chloride Level 100 mmol/L (98-107) Carbon Dioxide Level 32 mmol/L (21-32) Anion Gap 10 (6-14) Blood Urea Nitrogen 49 mg/dL (8-26) Creatinine 1.8 mg/dL (0.7-1.3) Estimated GFR (Cockcroft-Gault) 36.4 Glucose Level 138 mg/dL (70-99) Calcium Level 8.4 mg/dL (8.5-10.1) Test 04/06/18 11:53 Glucose (Fingerstick) 249 mg/dL (70-99) Microbiology 04/04/18 Blood Culture - Preliminary, Resulted NO GROWTH AFTER 2 DAYS Medications Current Medications Albuterol/ Ipratropium (Duoneb) 3 ml 1X ONCE NEB Last administered on at 21:30; Start 04/03/18 at 21:30; Stop 04/03/18 at 21:31; Status DC Albuterol Sulfate (Ventolin Neb Soln) 10 mg 1X ONCE CONT NEB Last administered on 04/03/18at 21:30; Start 04/03/18 at 21:30; Stop 04/03/18 at 21 :31; Status DC Methylprednisolone Sodium Succinate (SOLU-Medrol 125MG VIAL) 125 mg 1X ONCE IV Last administered on 04/03/18at 21:35; Start 04/03/18 at 21:30; Stop at 21:31; Status DC Furosemide (Lasix) 40 mg 1X ONCE IVP Last administered on 04/03/18at 21:36; Start 04/03/18 at 21:30; Stop 04/03/18 at 21:31; Status DC Nitroglycerin/ Dextrose 250 ml @ 3 mls/hr 1X ONCE IV Last administered on at 21:30; Start 04/03/18 at 21:30; Stop 04/07/18 at 08:49 Enalaprilat (Vasotec Inj) 1.25 mg 1X ONCE IVP ; Start 04/03/18 at 21:45; Stop 04/03/18 at 21:45; Status DC Nitroglycerin/ Dextrose 250 ml @ As Directed STK-MED ONCE IV ; Start 04/03/18 at 21:20; Stop 04/03/18 at 21:21; Status DC Enalaprilat (Vasotec Inj) 0.625 mg 1X ONCE IVP Last administered on at 21:37; Start 04/03/18 at 22:00; Stop 04/03/18 at 22:01; Status DC Dobutamine HCl/ Dextrose 250 ml @ 0 mls/hr 1X ONCE IV ; Start 04/03/18 at 22: 00; Stop 04/03/18 at 22:01; Status DC Sodium Chloride 1,000 ml @ 250 mls/hr 1X ONCE IV Last administered on at 21:55; Start 04/03/18 at 21:55; Stop 04/04/18 at 01:54; Status DC Norepinephrine Bitartrate 250 ml @ 1.875 mls/ hr CONT PRN IV SEE I/O RECORD Last administered on 04/04/18at 01:19; Start 04/04/18 at 00:30; Stop 04/06/18 at 08:11; Status DC Ondansetron HCl (Zofran) 4 mg PRN Q6HRS PRN IV NAUSEA/VOMITING; Start at 09:30 Sodium Chloride (Normal Saline Flush) 3 ml QSHIFT PRN IV AFTER MEDS AND BLOOD DRAWS; Start 04/04/18 at 09:30 Senna/Docusate Sodium (Senna Plus) 1 tab BID PO Last administered on at 08:47; Start 04/04/18 at 10:00 Bisacodyl (Dulcolax Supp) 10 mg PRN DAILY PRN ID CONSTIPATION; Start 04/04/18 at 09:30 Apixaban (Eliquis) 2.5 mg BID PO Last administered on 04/06/18 08:47; Start 04/04/18 at 10:00 Aspirin (Children'S Aspirin) 81 mg DAILY PO Last administered on 04/06/18 08: 47; Start 04/04/18 at 10:00 Carvedilol (Coreg) 3.125 mg BIDWMEALS PO Last administered on 04/06/18 08:46 ; Start 04/04/18 at 10:00 Cyanocobalamin (Vitamin B-12) 1,000 mcg DAILY PO Last administered on 08:46; Start 04/04/18 at 10:00 Multivitamins (Thera M Plus) 1 tab DAILY PO Last administered on 04/06/18 08: 46; Start 04/04/18 at 10:00 Nitroglycerin (Nitrostat) 0.4 mg PRN Q5MIN PRN SL CHEST PAIN; Start 04/04/18 at 09:30 Levothyroxine Sodium (Synthroid) 50 mcg DAILY06 PO Last administered on 06:26; Start 04/04/18 at 10:00 Magnesium Oxide (Magnesium Oxide) 400 mg SuMoTuWeThFr PO Last administered on 04/04/18 16:34; Start 04/04/18 at 16:00 Montelukast Sodium (Singulair) 10 mg QHS PO Last administered on 04/05/18at 20: 28; Start 04/04/18 at 21:00 Fish Oil (Fish Oil) 1,000 mg DAILY PO Last administered on 04/06/18 08:46; Start 04/04/18 at 10:00 Atorvastatin Calcium (Lipitor) 80 mg QHS PO Last administered on 04/05/18 20: 27; Start 04/04/18 at 21:00 Sacubitril/ Valsartan (Entresto 24 Mg-26 Mg) 1 tab BID PO Last administered on 04/06/18 08:47; Start 04/05/18 at 09:00 Insulin Human Lispro (HumaLOG) 0-7 UNITS TIDWMEALS SQ Last administered on at 10:24; Start 04/04/18 at 10:30; Stop 04/04/18 at 10:33; Status DC Dextrose (Dextrose 50%-Water Syringe) 12.5 gm PRN Q15MIN PRN IV SEE COMMENTS; Start 04/04/18 at 09:30; Stop 04/04/18 at 10:35; Status DC Acetaminophen (Tylenol) 650 mg PRN Q6HRS PRN PO Headaches, Temp > 101.5F; Start 04/04/18 at 10:30 Magnesium Hydroxide (Milk Of Magnesia) 2,400 mg PRN Q24HRS PRN PO CONSTIPATION ; Start 04/04/18 at 10:30 Non-Formulary Medication (Magnesium Oxide (Mag-Oxide)) 400 mg QSUTUTH PO ; Start 04/06/18 at 16:00; Status UNV Albuterol Sulfate (Ventolin Neb Soln) 2.5 mg PRN Q4HRS PRN NEB SHORTNESS OF BREATH; Start 04/04/18 at 10:45 Dextrose (Dextrose 50%-Water Syringe) 12.5 gm PRN Q15MIN PRN IV SEE COMMENTS; Start 04/04/18 at 10:30 Insulin Human Lispro (HumaLOG) 0-10 UNITS TIDBFRMEAL SQ Last administered on at 12:57; Start 04/04/18 at 11:30 Info (Anti-Coagulation Monitoring By Pharmacy) 1 each PRN DAILY PRN MC SEE COMMENTS Last administered on 04/06/18at 08:17; Start 04/04/18 at 11:00 Dobutamine HCl/ Dextrose 250 ml @ 10.712 mls/ hr CONT PRN IV SEE I/O RECORD Last administered on 04/06/18at 06:27; Start 04/04/18 at 12:00 Furosemide 100 mg/ Sodium Chloride 100 ml @ 10 mls/hr CONT PRN IV SEE I/O RECORD Last administered on 04/06/18at 11:11; Start 04/04/18 at 12:00 Potassium Chloride (Klor-Con) 20 meq BID92 PO Last administered on 04/06/18at 14:08; Start 04/06/18 at 09:00 Active Scripts Active Novolog Flexpen (Insulin Aspart) 100 Unit/1 Ml Insuln.pen 1 Unit SQ PER SLIDING SCALE SUbcutaneous injection Before meals three times daily: <150= no insulin 151-200= 2 units insulin 201-250 =3 units insulin 251-300 = 4 units insulin 301-350 = 6 units insulin 351-400 = 8 units insulin >401 call Milk Of Magnesia (Magnesium Hydroxide) 400 Mg/5 Ml Oral.susp 2,400 Mg PO PRN Q24HRS PRN Carvedilol 3.125 Mg Tablet 3.125 Mg PO BIDWMEALS Entresto 24 mg-26 mg Tablet (Sacubitril/Valsartan) 1 Each Tablet 1 Tab PO BID Thera-M Tablet (Multivits,Ca,Minerals/Iron/Fa) 1 Each Tablet 1 Tab PO DAILY Montelukast Sodium Tablet (Montelukast Sodium) 10 Mg Tablet 10 Mg PO QHS Tylenol (Acetaminophen) 325 Mg Tablet 650 Mg PO PRN Q6HRS PRN Reported Bumetanide 2 Mg Tablet 4 Mg PO DAILY Eliquis (Apixaban) 2.5 Mg Tablet 2.5 Mg PO DAILY B-12 (Cyanocobalamin (Vitamin B-12)) 1,000 Mcg Tablet 1,000 Mcg PO DAILY Potassium Chloride 10 Meq Tab.sr.24h 10 Meq PO DAILY Magnesium Oxide 400 Mg Tablet 400 Mg PO QMWF Mag-Oxide (Magnesium Oxide) 400 Mg Tablet 400 Mg PO QSUTUTH Aspirin 81 Mg Tab.chew 81 Mg PO DAILY Levothyroxine Sodium 50 Mcg Tablet 1 Tab PO DAILY NITROGLYCERIN SubLingual (Nitroglycerin) 0.4 Mg Tab.subl 0.4 Mg SL PRN Q5MIN PRN [place]-3 Fish Oil 1,000 Mg Sfgl ([place]-3/Dha/Epa/Fish Oil) 1,000 Mg Capsule 1, 000 Mg PO DAILY Crestor (Rosuvastatin Calcium) 20 Mg Tablet 20 Mg PO HS Vitals/I & O Vital Sign - Last 24 Hours 04/05/18 04/05/18 04/05/18 04/05/18 17:07 17:45 19:43 20:00 Temp 97.4 98.4 97.4 98.4 Pulse 61 61 85 Resp 18 16 B/P (MAP) 104/56 145/70 (95) 145/70 (95) Pulse Ox 98 94 O2 Delivery Nasal Cannula Nasal Cannula Nasal Cannula O2 Flow Rate 3.0 2.0 2.0 04/05/18 04/05/18 04/05/18 04/05/18 20:24 20:27 21:47 22:47 Pulse 61 B/P (MAP) 132/63 (86) 132/63 116/56 (76) 121/56 (77) 04/05/18 04/05/18 04/06/18 04/06/18 23:38 23:47 00:47 01:47 Temp 97.1 97.1 Pulse 60 Resp 17 B/P (MAP) 121/56 (77) 107/59 (75) 123/60 (81) 122/58 (79) Pulse Ox 95 O2 Delivery Nasal Cannula O2 Flow Rate 2.0 04/06/18 04/06/18 04/06/18 04/06/18 02:47 03:00 03:47 04:47 Temp 97.7 97.7 Pulse 60 Resp 16 B/P (MAP) 126/58 (80) 107/53 (71) 107/53 (71) 119/58 (78) Pulse Ox 94 O2 Delivery Nasal Cannula O2 Flow Rate 2.0 04/06/18 04/06/18 04/06/18 04/06/18 05:47 06:47 07:00 08:00 Temp 98.0 98.0 Pulse 62 Resp 16 B/P (MAP) 136/60 (85) 132/67 (88) 129/58 (81) Pulse Ox 98 O2 Delivery Nasal Cannula Nasal Cannula O2 Flow Rate 2.0 2.0 04/06/18 04/06/18 04/06/18 04/06/18 08:46 08:47 10:57 14:52 Temp 98.0 98.2 98.0 98.2 Pulse 62 62 61 61 Resp 16 18 B/P (MAP) 129/58 129/58 157/69 (98) 124/58 (80) Pulse Ox 98 96 O2 Delivery Nasal Cannula Nasal Cannula O2 Flow Rate 2.0 2.0 Intake and Output 04/05/18 04/05/18 04/06/18 15:00 23:00 07:00 Intake Total 240 ml 815 ml 333 ml Output Total 1050 ml 850 ml 3100 ml Balance -810 ml -35 ml -2767 ml MASTER FLORES MD Apr 06, 2018 16:08
[2018-04-06] MEDS: MAGNESIUM OXIDE 400 MG TABLET PO SCH (16:54)
[2018-04-06] MEDS: BUMETANIDE 1 MG TABLET. PO SCH (18:17)
[2018-04-06] MEDS: MONTELUKAST SODIUM 10 MG TABLET. PO SCH (20:43)
[2018-04-06] MEDS: ATORVASTATIN CALCIUM 40 MG TABLET. PO SCH (20:43)
[2018-04-07 02:50] VITALS: BP 112/64
[2018-04-07] MEDS: LEVOTHYROXINE 50 MCG TABLET PO SCH (06:19)
[2018-04-07 06:43] LABS: CALCIUM 9.2 mg/dL (8.5-10.1); CREATININE 1.7 mg/dL (0.7-1.3); GFR 38.9; MAGNESIUM 2.1 mg/dL (1.8-2.4); POTASSIUM 3.8 mmol/L (3.5-5.1)
[2018-04-07] MEDS: INSULIN LISPRO 300 UNITS/3 ML INSULN.PEN. SQ SCH ×2 (07:30→12:31)
[2018-04-07 07:31] VITALS: BP 113/59
--- NOTE | 2018-04-07 09:28 | PDOC ---
PROGRESS NOTES Subjective Subjective Patient feels well today with no complaints Objective Objective Vital Signs Date Time Temp Pulse Resp B/P (MAP) Pulse Ox O2 Delivery O2 Flow Rate FiO2 04/07/18 07:31 97.5 62 18 113/59 (77) 98 Nasal Cannula 2.0 97.5 Intake and Output 04/07/18 07:00 Intake Total 1660 ml Output Total 3700 ml Balance -2040 ml Intake Oral 1660 ml Output Urine Total 3700 ml # Bowel Movements 1 Physical Exam Physical Exam no significant change on cardiac exam lungs clear to auscultation bilaterally no lower extremity swelling present Assessment Assessment Problems Medical Problems: (1) Acute exacerbation of CHF (congestive heart failure) Status: Acute (2) Cardiac asthma Status: Acute (3) Hypoxemia Status: Acute (4) Respiratory failure, acute Status: Acute Plan Plan of Care Patient is off dobutamine and lasix ok to discharge from cardiac standpoint continue Bumex 4mg PO daily at home Follow up in clinic in 2 weeks Comment Review of Relevant I have reviewed the following items sima (where applicable) has been applied. Labs Laboratory Tests Test 04/05/18 11:59 04/05/18 17:04 04/05/18 21:05 04/06/18 04:30 Glucose (Fingerstick) 212 mg/dL (70-99) 142 mg/dL (70-99) 141 mg/dL (70-99) Sodium Level 142 mmol/L (136-145) Potassium Level 3.3 mmol/L (3.5-5.1) Chloride Level 100 mmol/L (98-107) Carbon Dioxide Level 32 mmol/L (21-32) Anion Gap 10 (6-14) Blood Urea Nitrogen 49 mg/dL (8-26) Creatinine 1.8 mg/dL (0.7-1.3) Estimated GFR (Cockcroft-Gault) 36.4 Glucose Level 138 mg/dL (70-99) Calcium Level 8.4 mg/dL (8.5-10.1) Test 04/06/18 07:20 04/06/18 11:53 04/06/18 16:47 04/06/18 20:36 Glucose (Fingerstick) 129 mg/dL (70-99) 249 mg/dL (70-99) 155 mg/dL (70-99) 204 mg/dL (70-99) Test 04/07/18 05:45 04/07/18 07:33 Sodium Level 140 mmol/L (136-145) Potassium Level 3.8 mmol/L (3.5-5.1) Chloride Level 99 mmol/L (98-107) Carbon Dioxide Level 31 mmol/L (21-32) Anion Gap 10 (6-14) Blood Urea Nitrogen 43 mg/dL (8-26) Creatinine 1.7 mg/dL (0.7-1.3) Estimated GFR (Cockcroft-Gault) 38.9 Glucose Level 174 mg/dL (70-99) Calcium Level 9.2 mg/dL (8.5-10.1) Magnesium Level 2.1 mg/dL (1.8-2.4) Glucose (Fingerstick) 140 mg/dL (70-99) Laboratory Tests Test 04/06/18 11:53 04/06/18 16:47 04/06/18 20:36 04/07/18 05:45 Glucose (Fingerstick) 249 mg/dL (70-99) 155 mg/dL (70-99) 204 mg/dL (70-99) Sodium Level 140 mmol/L (136-145) Potassium Level 3.8 mmol/L (3.5-5.1) Chloride Level 99 mmol/L (98-107) Carbon Dioxide Level 31 mmol/L (21-32) Anion Gap 10 (6-14) Blood Urea Nitrogen 43 mg/dL (8-26) Creatinine 1.7 mg/dL (0.7-1.3) Estimated GFR (Cockcroft-Gault) 38.9 Glucose Level 174 mg/dL (70-99) Calcium Level 9.2 mg/dL (8.5-10.1) Magnesium Level 2.1 mg/dL (1.8-2.4) Test 04/07/18 07:33 Glucose (Fingerstick) 140 mg/dL (70-99) Microbiology 04/04/18 Blood Culture - Preliminary, Resulted NO GROWTH AFTER 3 DAYS Medications Current Medications Albuterol/ Ipratropium (Duoneb) 3 ml 1X ONCE NEB Last administered on at 21:30; Start 04/03/18 at 21:30; Stop 04/03/18 at 21:31; Status DC Albuterol Sulfate (Ventolin Neb Soln) 10 mg 1X ONCE CONT NEB Last administered on 04/03/18at 21:30; Start 04/03/18 at 21:30; Stop 04/03/18 at 21 :31; Status DC Methylprednisolone Sodium Succinate (SOLU-Medrol 125MG VIAL) 125 mg 1X ONCE IV Last administered on 04/03/18at 21:35; Start 04/03/18 at 21:30; Stop at 21:31; Status DC Furosemide (Lasix) 40 mg 1X ONCE IVP Last administered on 04/03/18at 21:36; Start 04/03/18 at 21:30; Stop 04/03/18 at 21:31; Status DC Nitroglycerin/ Dextrose 250 ml @ 3 mls/hr 1X ONCE IV Last administered on at 21:30; Start 04/03/18 at 21:30; Stop 04/07/18 at 08:49; Status DC Enalaprilat (Vasotec Inj) 1.25 mg 1X ONCE IVP ; Start 04/03/18 at 21:45; Stop 04/03/18 at 21:45; Status DC Nitroglycerin/ Dextrose 250 ml @ As Directed STK-MED ONCE IV ; Start 04/03/18 at 21:20; Stop 04/03/18 at 21:21; Status DC Enalaprilat (Vasotec Inj) 0.625 mg 1X ONCE IVP Last administered on at 21:37; Start 04/03/18 at 22:00; Stop 04/03/18 at 22:01; Status DC Dobutamine HCl/ Dextrose 250 ml @ 0 mls/hr 1X ONCE IV ; Start 04/03/18 at 22: 00; Stop 04/03/18 at 22:01; Status DC Sodium Chloride 1,000 ml @ 250 mls/hr 1X ONCE IV Last administered on at 21:55; Start 04/03/18 at 21:55; Stop 04/04/18 at 01:54; Status DC Norepinephrine Bitartrate 250 ml @ 1.875 mls/ hr CONT PRN IV SEE I/O RECORD Last administered on 04/04/18at 01:19; Start 04/04/18 at 00:30; Stop 04/06/18 at 08:11; Status DC Ondansetron HCl (Zofran) 4 mg PRN Q6HRS PRN IV NAUSEA/VOMITING; Start at 09:30 Sodium Chloride (Normal Saline Flush) 3 ml QSHIFT PRN IV AFTER MEDS AND BLOOD DRAWS; Start 04/04/18 at 09:30 Senna/Docusate Sodium (Senna Plus) 1 tab BID PO Last administered on 08:47; Start 04/04/18 at 10:00 Bisacodyl (Dulcolax Supp) 10 mg PRN DAILY PRN [place] CONSTIPATION; Start 04/04/18 at 09:30 Apixaban (Eliquis) 2.5 mg BID PO Last administered on 04/06/18 20:43; Start 04/04/18 at 10:00 Aspirin (Children'S Aspirin) 81 mg DAILY PO Last administered on 04/06/18 08: 47; Start 04/04/18 at 10:00 Carvedilol (Coreg) 3.125 mg BIDWMEALS PO Last administered on 04/06/18 16:54 ; Start 04/04/18 at 10:00 Cyanocobalamin (Vitamin B-12) 1,000 mcg DAILY PO Last administered on 08:46; Start 04/04/18 at 10:00 Multivitamins (Thera M Plus) 1 tab DAILY PO Last administered on 04/06/18 08: 46; Start 04/04/18 at 10:00 Nitroglycerin (Nitrostat) 0.4 mg PRN Q5MIN PRN SL CHEST PAIN; Start 04/04/18 at 09:30 Levothyroxine Sodium (Synthroid) 50 mcg DAILY06 PO Last administered on 06:19; Start 04/04/18 at 10:00 Magnesium Oxide (Magnesium Oxide) 400 mg [id number] PO Last administered on 04/06/18 16:54; Start 04/04/18 at 16:00 Montelukast Sodium (Singulair) 10 mg QHS PO Last administered on 04/06/18 20: 43; Start 04/04/18 at 21:00 Fish Oil (Fish Oil) 1,000 mg DAILY PO Last administered on 04/06/18 08:46; Start 04/04/18 at 10:00 Atorvastatin Calcium (Lipitor) 80 mg QHS PO Last administered on 04/06/18at 20: 43; Start 04/04/18 at 21:00 Sacubitril/ Valsartan (Entresto 24 Mg-26 Mg) 1 tab BID PO Last administered on 04/06/18at 20:43; Start 04/05/18 at 09:00 Insulin Human Lispro (HumaLOG) 0-7 UNITS TIDWMEALS SQ Last administered on at 10:24; Start 04/04/18 at 10:30; Stop 04/04/18 at 10:33; Status DC Dextrose (Dextrose 50%-Water Syringe) 12.5 gm PRN Q15MIN PRN IV SEE COMMENTS; Start 04/04/18 at 09:30; Stop 04/04/18 at 10:35; Status DC Acetaminophen (Tylenol) 650 mg PRN Q6HRS PRN PO Headaches, Temp > 101.5F; Start 04/04/18 at 10:30 Magnesium Hydroxide (Milk Of Magnesia) 2,400 mg PRN Q24HRS PRN PO CONSTIPATION ; Start 04/04/18 at 10:30 Non-Formulary Medication (Magnesium Oxide (Mag-Oxide)) 400 mg QSUTUTH PO ; Start 04/06/18 at 16:00; Status UNV Albuterol Sulfate (Ventolin Neb Soln) 2.5 mg PRN Q4HRS PRN NEB SHORTNESS OF BREATH; Start 04/04/18 at 10:45 Dextrose (Dextrose 50%-Water Syringe) 12.5 gm PRN Q15MIN PRN IV SEE COMMENTS; Start 04/04/18 at 10:30 Insulin Human Lispro (HumaLOG) 0-10 UNITS TIDBFRMEAL SQ Last administered on at 16:57; Start 04/04/18 at 11:30 Info (Anti-Coagulation Monitoring By Pharmacy) 1 each PRN DAILY PRN MC SEE COMMENTS Last administered on 04/06/18at 08:17; Start 04/04/18 at 11:00 Dobutamine HCl/ Dextrose 250 ml @ 10.712 mls/ hr CONT PRN IV SEE I/O RECORD Last administered on 04/06/18at 06:27; Start 04/04/18 at 12:00 Furosemide 100 mg/ Sodium Chloride 100 ml @ 10 mls/hr CONT PRN IV SEE I/O RECORD Last administered on 04/06/18at 11:11; Start 04/04/18 at 12:00 Potassium Chloride (Klor-Con) 20 meq BID92 PO Last administered on 04/06/18at 14:08; Start 04/06/18 at 09:00 Bumetanide (Bumex) 4 mg DAILY PO Last administered on 04/06/18at 18:17; Start 04/06/18 at 18:00 Active Scripts Active Novolog Flexpen (Insulin Aspart) 100 Unit/1 Ml Insuln.pen 1 Unit SQ PER SLIDING SCALE SUbcutaneous injection Before meals three times daily: <150= no insulin 151-200= 2 units insulin 201-250 =3 units insulin 251-300 = 4 units insulin 301-350 = 6 units insulin 351-400 = 8 units insulin >401 call Milk Of Magnesia (Magnesium Hydroxide) 400 Mg/5 Ml Oral.susp 2,400 Mg PO PRN Q24HRS PRN Carvedilol 3.125 Mg Tablet 3.125 Mg PO BIDWMEALS Entresto 24 mg-26 mg Tablet (Sacubitril/Valsartan) 1 Each Tablet 1 Tab PO BID Thera-M Tablet (Multivits,Ca,Minerals/Iron/Fa) 1 Each Tablet 1 Tab PO DAILY Montelukast Sodium Tablet (Montelukast Sodium) 10 Mg Tablet 10 Mg PO QHS Tylenol (Acetaminophen) 325 Mg Tablet 650 Mg PO PRN Q6HRS PRN Reported Bumetanide 2 Mg Tablet 4 Mg PO DAILY Eliquis (Apixaban) 2.5 Mg Tablet 2.5 Mg PO DAILY B-12 (Cyanocobalamin (Vitamin B-12)) 1,000 Mcg Tablet 1,000 Mcg PO DAILY Potassium Chloride 10 Meq Tab.sr.24h 10 Meq PO DAILY Magnesium Oxide 400 Mg Tablet 400 Mg PO QMWF Mag-Oxide (Magnesium Oxide) 400 Mg Tablet 400 Mg PO QSUTUTH Aspirin 81 Mg Tab.chew 81 Mg PO DAILY Levothyroxine Sodium 50 Mcg Tablet 1 Tab PO DAILY NITROGLYCERIN SubLingual (Nitroglycerin) 0.4 Mg Tab.subl 0.4 Mg SL PRN Q5MIN PRN [place]-3 Fish Oil 1,000 Mg Sfgl ([place]-3/Dha/Epa/Fish Oil) 1,000 Mg Capsule 1, 000 Mg PO DAILY Crestor (Rosuvastatin Calcium) 20 Mg Tablet 20 Mg PO HS Vitals/I & O Vital Sign - Last 24 Hours 04/06/18 04/06/18 04/06/18 04/06/18 10:57 14:52 16:54 19:25 Temp 98.0 98.2 98.0 98.0 98.2 98.0 Pulse 61 61 61 60 Resp 16 18 18 B/P (MAP) 157/69 (98) 124/58 (80) 124/58 129/63 (85) Pulse Ox 98 96 95 O2 Delivery Nasal Cannula Nasal Cannula Nasal Cannula O2 Flow Rate 2.0 2.0 2.0 04/06/18 04/06/18 04/06/18 04/07/18 20:00 20:43 22:40 02:50 Temp 98.8 98.7 98.8 98.7 Pulse 60 61 60 Resp 18 18 B/P (MAP) 129/63 116/61 (79) 112/64 (80) Pulse Ox 96 97 O2 Delivery Nasal Cannula Nasal Cannula Nasal Cannula O2 Flow Rate 2.0 2.0 2.0 04/07/18 07:31 Temp 97.5 97.5 Pulse 62 Resp 18 B/P (MAP) 113/59 (77) Pulse Ox 98 O2 Delivery Nasal Cannula O2 Flow Rate 2.0 Intake and Output 04/06/18 04/06/18 04/07/18 15:00 23:00 07:00 Intake Total 720 ml 500 ml 440 ml Output Total 1300 ml 850 ml 1550 ml Balance -580 ml -350 ml -1110 ml MASTER FLORES MD Apr 07, 2018 09:28
[2018-04-07] MEDS: MAGNESIUM OXIDE 400 MG TABLET PO SCH (09:43)
[2018-04-07] MEDS: SENNOSIDES/DOCUSATE 8.6/50MG TABLET. PO SCH (09:43)
[2018-04-07] MEDS: POTASSIUM CHLORIDE 20 MEQ TABLET.ER. PO SCH (09:43)
[2018-04-07] MEDS: BUMETANIDE 1 MG TABLET. PO SCH (09:43)
[2018-04-07] MEDS: MULTIVITAMIN with MINERAL TABLET. PO SCH (09:44)
[2018-04-07] MEDS: OMEGA-3 FATTY ACIDS/FISH OIL 1,000 MG CAPSULE. PO SCH (09:44)
[2018-04-07] MEDS: SACUBITRIL/VALSARTAN 24/26MG TABLET. PO SCH (09:44)
[2018-04-07] MEDS: APIXABAN 2.5 MG TABLET. PO SCH (09:44)
[2018-04-07] MEDS: CYANOCOBALAMIN (VITAMIN B-12) 1,000 MCG TABLET. PO SCH (09:44)
[2018-04-07] MEDS: CARVEDILOL 3.125 MG TABLET. PO SCH (09:44)
[2018-04-07] MEDS: ASPIRIN CHEWABLE 81 MG TABLET. PO SCH (09:44)
[2018-04-07] MEDS ORDERED: POTA10TA12 PO (10:10)
--- NOTE | 2018-04-07 10:18 | PDOC3 ---
IM DISCHARGE SUMMARY Date of Admission Date of Admission Date of Admission: Apr 03, 2018 at 22:04 Date of Discharge Date of Discharge April 07, 2018 Primary Diagnosis Primary Diagnosis 1. 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 2. Likely exacerbation of chronic obstructive pulmonary disease. 3. Diabetes mellitus type 2, not controlled. This may be due to a stress reaction as well as IV steroids. 4. Atrial fibrillation, now in sinus rhythm. 5. Chronic kidney disease stage 3 with hyperkalemia. 6. Acute hypotension, multifactorial. The patient is on Levophed drip IV. 7. Coronary artery disease status post coronary artery bypass graft and stent placement. 8. Acute hypoxic respiratory failure. 9. Moderate mitral regurgitation. 10. Hyperlipidemia. 11. History of colon cancer. 12. History of automatic implantable cardioverter-defibrillator. 13. History of valvulopathy, moderate mitral regurgitation, tricuspid regurgitation, mild aortic regurgitation with pulmonic valve regurgitation. 14. Moderate pulmonary hypertension. Consults Consults Nixon Trejo MD Labs Labs Laboratory Tests Test 04/04/18 12:40 04/04/18 16:32 04/05/18 04:00 04/05/18 08:09 Glucose (Fingerstick) 274 mg/dL (70-99) 300 mg/dL (70-99) 151 mg/dL (70-99) White Blood Count 12.4 x10^3/uL (4.0-11.0) Red Blood Count 3.64 x10^6/uL (4.30-5.70) Hemoglobin 11.8 g/dL (13.0-17.5) Hematocrit 34.0 % (39.0-53.0) Mean Corpuscular Volume 93 fL (79-100) Mean Corpuscular Hemoglobin 32 pg (25-35) Mean Corpuscular Hemoglobin Concent 35 g/dL (31-37) Red Cell Distribution Width 14.4 % (11.5-14.5) Platelet Count 139 x10^3/uL (140-400) Neutrophils (%) (Auto) 89 % (31-73) Lymphocytes (%) (Auto) 5 % (24-48) Monocytes (%) (Auto) 6 % (0-9) Eosinophils (%) (Auto) 0 % (0-3) Basophils (%) (Auto) 0 % (0-3) Neutrophils # (Auto) 11.0 x10^3uL (1.8-7.7) Lymphocytes # (Auto) 0.7 x10^3/uL (1.0-4.8) Monocytes # (Auto) 0.7 x10^3/uL (0.0-1.1) Eosinophils # (Auto) 0.0 x10^3/uL (0.0-0.7) Basophils # (Auto) 0.0 x10^3/uL (0.0-0.2) Sodium Level 140 mmol/L (136-145) Potassium Level 3.8 mmol/L (3.5-5.1) Chloride Level 103 mmol/L (98-107) Carbon Dioxide Level 28 mmol/L (21-32) Anion Gap 9 (6-14) Blood Urea Nitrogen 51 mg/dL (8-26) Creatinine 1.9 mg/dL (0.7-1.3) Estimated GFR (Cockcroft-Gault) 34.2 BUN/Creatinine Ratio 27 (6-20) Glucose Level 186 mg/dL (70-99) Calcium Level 8.5 mg/dL (8.5-10.1) Magnesium Level 2.1 mg/dL (1.8-2.4) Total Bilirubin 0.9 mg/dL (0.2-1.0) Aspartate Amino Transf (AST/SGOT) 10 U/L (15-37) Alanine Aminotransferase (ALT/SGPT) 20 U/L (16-63) Alkaline Phosphatase 60 U/L (46-116) Total Protein 6.9 g/dL (6.4-8.2) Albumin 3.2 g/dL (3.4-5.0) Albumin/Globulin Ratio 0.9 (1.0-1.7) Test 04/05/18 11:59 04/05/18 17:04 04/05/18 21:05 04/06/18 04:30 Glucose (Fingerstick) 212 mg/dL (70-99) 142 mg/dL (70-99) 141 mg/dL (70-99) Sodium Level 142 mmol/L (136-145) Potassium Level 3.3 mmol/L (3.5-5.1) Chloride Level 100 mmol/L (98-107) Carbon Dioxide Level 32 mmol/L (21-32) Anion Gap 10 (6-14) Blood Urea Nitrogen 49 mg/dL (8-26) Creatinine 1.8 mg/dL (0.7-1.3) Estimated GFR (Cockcroft-Gault) 36.4 Glucose Level 138 mg/dL (70-99) Calcium Level 8.4 mg/dL (8.5-10.1) Test 04/06/18 07:20 04/06/18 11:53 04/06/18 16:47 04/06/18 20:36 Glucose (Fingerstick) 129 mg/dL (70-99) 249 mg/dL (70-99) 155 mg/dL (70-99) 204 mg/dL (70-99) Test 04/07/18 05:45 04/07/18 07:33 Sodium Level 140 mmol/L (136-145) Potassium Level 3.8 mmol/L (3.5-5.1) Chloride Level 99 mmol/L (98-107) Carbon Dioxide Level 31 mmol/L (21-32) Anion Gap 10 (6-14) Blood Urea Nitrogen 43 mg/dL (8-26) Creatinine 1.7 mg/dL (0.7-1.3) Estimated GFR (Cockcroft-Gault) 38.9 Glucose Level 174 mg/dL (70-99) Calcium Level 9.2 mg/dL (8.5-10.1) Magnesium Level 2.1 mg/dL (1.8-2.4) Glucose (Fingerstick) 140 mg/dL (70-99) Brief hospital course Brief hospital course This 81 years old male was discharged from [facility] for after being treated for acute congestive heart failure on April 03, 2018. Several hours after he went home he started having shortness of breath again and by the time he came to the hospital he was in acute pulmonary edema and was admitted to the intensive care unit and was started on IV dobutamine and IV Lasix drip. For more details regarding the past history, family history, social history, surgical history and other details, please refer to History and Physical. The patient was admitted to intensive care unit. He was given a sublingual nitroglycerin and cause of that along with the heart failure patient became very hypotensive. Diuretics were on hold and patient was given IV Levophed. Once the blood pressure recovered patient was placed on IV dobutamine and IV Lasix. Consult Dr. Linares for cardiology evaluation and management. Consult Dr. Trejo for pulmonary evaluation and management. I will start him on p.r.n. breathing treatments. He is on Singulair. For details, please review the orders. Monitor blood sugars. I will increase his sliding scale insulin. Condition and treatment discussed with the patient and his family. Acute pulmonary edema- improving. On IV Lasix drip. Hyperkalemia -potassium level has decreased from 5.5-3.8. It is improving. Entresto was held yesterday. Restarted Hypokalemia- potassium is 3.3. Replace potassium. This is most likely due to IV Lasix. Acute hypoxic respiratory failure- improving. Patient is off BiPAP and is now on oxygen by nasal cannula. Acute hypotensionbetter. Patient is off Levophed Acute on chronic systolic and diastolic congestive heart failure- on IV dobutamine and IV Lasix drip. Improving. He has lost 10 pounds since admission. Patient is discharged home. See me in the office in 3 days. Condition at the time of discharge much better. Patient was not taking Bumex at home and was only taking Lasix. We will discharge him on max 4 mg that is 2 mg twice daily and potassium chloride 20 mg daily. Because of his renal function Except and doses and decreased to 2.5 mg twice daily. Condition at the time of discharge much better. However his long-term and short- term prognosis is poor due to his multiple medical problems. Medications Medications reviewed and reconciled for discharge. Allergy Allergies Coded Allergies Type Severity Reaction Last Updated Verified I S O L A T I O N *CONTACT* Allergy Unknown 03/25/17 Yes No Known Medication Allergies Allergy Unknown 03/25/17 Yes Follow up in 5 days. Comments Discharge Management - 35 minutes. For other details please refer to discharge instructions TOM FOSTER MD Apr 07, 2018 10:18
[2018-04-07 10:42] VITALS: BP 137/66
[2018-04-07 10:49] VITALS: BP 159/82
[2018-04-07] MEDS: ANTI-COAG MONITOR BY PHARMACY. MC PRN (11:18)
--- NOTE | 2018-04-07 12:59 | PDOC ---
PULMONARY PROGRESS NOTES Subjective no soa Vitals Vital Signs Date Time Temp Pulse Resp B/P (MAP) Pulse Ox O2 Delivery O2 Flow Rate FiO2 04/07/18 11:00 Nasal Cannula 2.0 04/07/18 10:49 99.7 129 159/82 (107) 91 99.7 04/07/18 10:42 20 General: Alert, No acute distress Lungs: Clear Cardiovascular: S1 Abdomen: Soft Extremities: Other Skin: Warm Labs Laboratory Tests Test 04/05/18 17:04 04/05/18 21:05 04/06/18 04:30 04/06/18 07:20 Glucose (Fingerstick) 142 mg/dL (70-99) 141 mg/dL (70-99) 129 mg/dL (70-99) Sodium Level 142 mmol/L (136-145) Potassium Level 3.3 mmol/L (3.5-5.1) Chloride Level 100 mmol/L (98-107) Carbon Dioxide Level 32 mmol/L (21-32) Anion Gap 10 (6-14) Blood Urea Nitrogen 49 mg/dL (8-26) Creatinine 1.8 mg/dL (0.7-1.3) Estimated GFR (Cockcroft-Gault) 36.4 Glucose Level 138 mg/dL (70-99) Calcium Level 8.4 mg/dL (8.5-10.1) Test 04/06/18 11:53 04/06/18 16:47 04/06/18 20:36 04/07/18 05:45 Glucose (Fingerstick) 249 mg/dL (70-99) 155 mg/dL (70-99) 204 mg/dL (70-99) Sodium Level 140 mmol/L (136-145) Potassium Level 3.8 mmol/L (3.5-5.1) Chloride Level 99 mmol/L (98-107) Carbon Dioxide Level 31 mmol/L (21-32) Anion Gap 10 (6-14) Blood Urea Nitrogen 43 mg/dL (8-26) Creatinine 1.7 mg/dL (0.7-1.3) Estimated GFR (Cockcroft-Gault) 38.9 Glucose Level 174 mg/dL (70-99) Calcium Level 9.2 mg/dL (8.5-10.1) Magnesium Level 2.1 mg/dL (1.8-2.4) Test 04/07/18 07:33 04/07/18 10:44 Glucose (Fingerstick) 140 mg/dL (70-99) 219 mg/dL (70-99) Laboratory Tests Test 04/06/18 16:47 04/06/18 20:36 04/07/18 05:45 04/07/18 07:33 Glucose (Fingerstick) 155 mg/dL (70-99) 204 mg/dL (70-99) 140 mg/dL (70-99) Sodium Level 140 mmol/L (136-145) Potassium Level 3.8 mmol/L (3.5-5.1) Chloride Level 99 mmol/L (98-107) Carbon Dioxide Level 31 mmol/L (21-32) Anion Gap 10 (6-14) Blood Urea Nitrogen 43 mg/dL (8-26) Creatinine 1.7 mg/dL (0.7-1.3) Estimated GFR (Cockcroft-Gault) 38.9 Glucose Level 174 mg/dL (70-99) Calcium Level 9.2 mg/dL (8.5-10.1) Magnesium Level 2.1 mg/dL (1.8-2.4) Test 04/07/18 10:44 Glucose (Fingerstick) 219 mg/dL (70-99) Medications Active Scripts Medications Dose Route/Sig Max Daily Dose Days Date Category Dose Instructions Bumetanide 2 Mg Tablet 4 Mg PO DAILY 04/03/18 Reported Eliquis (Apixaban) 2.5 Mg Tablet 2.5 Mg PO DAILY 04/03/18 Reported B-12 (Cyanocobalamin (Vitamin B-12)) 1,000 Mcg Tablet 1,000 Mcg PO DAILY 04/01/18 Reported Potassium Chloride 10 Meq Tab.sr.24h 10 Meq PO DAILY 04/01/18 Reported Magnesium Oxide 400 Mg Tablet 400 Mg PO QMWF 04/01/18 Reported Mag-Oxide (Magnesium Oxide) 400 Mg Tablet 400 Mg PO QSUTUTH 04/01/18 Reported Aspirin 81 Mg Tab.chew 81 Mg PO DAILY 04/01/18 Reported Levothyroxine Sodium 50 Mcg Tablet 1 Tab PO DAILY 09/21/17 Reported Novolog Flexpen (Insulin Aspart) 100 Unit/1 Ml Insuln.pen 1 Unit SQ PER SLIDING SCALE 03/21/17 Rx SUbcutaneous injection Before meals three times daily: <150= no insulin 151-200= 2 units insulin 201-250 =3 units insulin 251-300 = 4 units insulin 301-350 = 6 units insulin 351-400 = 8 units insulin >401 call Milk Of Magnesia (Magnesium Hydroxide) 400 Mg/5 Ml Oral.susp 2,400 Mg PO PRN Q24HRS PRN 03/01/17 Rx Carvedilol 3.125 Mg Tablet 3.125 Mg PO BIDWMEALS 03/01/17 Rx Entresto 24 mg-26 mg Tablet (Sacubitril/Valsartan) 1 Each Tablet 1 Tab PO BID 02/25/17 Rx Thera-M Tablet (Multivits,Ca,Minerals/Iron/Fa) 1 Each Tablet 1 Tab PO DAILY 01/30/17 Rx Montelukast Sodium Tablet (Montelukast Sodium) 10 Mg Tablet 10 Mg PO QHS 01/30/17 Rx Tylenol (Acetaminophen) 325 Mg Tablet 650 Mg PO PRN Q6HRS PRN 01/30/17 Rx NITROGLYCERIN SubLingual (Nitroglycerin) 0.4 Mg Tab.subl 0.4 Mg SL PRN Q5MIN PRN 01/23/17 Reported [place]-3 Fish Oil 1,000 Mg Sfgl ([place]-3/Dha/Epa/Fish Oil) 1,000 Mg Capsule 1,000 Mg PO DAILY 10/31/15 Reported Crestor (Rosuvastatin Calcium) 20 Mg Tablet 20 Mg PO HS 05/29/14 Reported Impression . 1. [id number] hypoxic respiratory failure secondary to [id number] systolic heart failure. 2. The patient with known cardiomyopathy with an EF of 10%-15%. 3. Cardiac asthma with bronchospasm, resolving with Lasix. 4. Chronic renal insufficiency. 5. No significant history of tobacco use or asthma. Plan . 1. off Lasix drip. 2. off dobutamine 3. Follow chest x-ray as needed. 4. P.r.n. bronchodilators. 5. Follow Cardiology's recommendation. 6. Discussed with RN / ok with BABATUNDE Pradhan MD Apr 07, 2018 12:59
== END 2018-04-07 12:50 | disposition home or self-care (01) | DRG 291 ==
LOC: ER 21:10 → 1 WEST ICU 22:04 → 2 NORTH 04-05 17:41
PROVIDERS: ADMIT Internal Medicine; ATTEND Internal Medicine
PROC: 5A09357 Assistance with Respiratory Ventilation, Less than 24 Consecutive Hours, Continuous Positive Airway Pressure (ICD-10-PCS; principal; 2018-04-03)
PROC: 5A09357 Assistance with Respiratory Ventilation, Less than 24 Consecutive Hours, Continuous Positive Airway Pressure (ICD-10-PCS; 2018-04-04)
DX: I13.0 Hypertensive heart and chronic kidney disease with heart failure and stage 1 through stage 4 chronic kidney disease, or unspecified chronic kidney disease (principal); I50.43 Acute on chronic combined systolic (congestive) and diastolic (congestive) heart failure; J96.21 Acute and chronic respiratory failure with hypoxia; J18.9 Pneumonia, unspecified organism; I26.99 Other pulmonary embolism without acute cor pulmonale; J44.1 Chronic obstructive pulmonary disease with (acute) exacerbation; J44.0 Chronic obstructive pulmonary disease with (acute) lower respiratory infection; E03.9 Hypothyroidism, unspecified; E11.22 Type 2 diabetes mellitus with diabetic chronic kidney disease; E11.65 Type 2 diabetes mellitus with hyperglycemia; E78.00 Pure hypercholesterolemia, unspecified; I25.5 Ischemic cardiomyopathy; E78.5 Hyperlipidemia, unspecified; E87.5 Hyperkalemia; E87.6 Hypokalemia; I25.10 Atherosclerotic heart disease of native coronary artery without angina pectoris; I95.9 Hypotension, unspecified; I27.20 Pulmonary hypertension, unspecified; I37.1 Nonrheumatic pulmonary valve insufficiency; I48.91 Unspecified atrial fibrillation; N18.3 Chronic kidney disease, stage 3 (moderate); Z82.49 Family history of ischemic heart disease and other diseases of the circulatory system; Z85.038 Personal history of other malignant neoplasm of large intestine; Z90.49 Acquired absence of other specified parts of digestive tract; Z95.1 Presence of aortocoronary bypass graft; Z95.810 Presence of automatic (implantable) cardiac defibrillator; Z87.891 Personal history of nicotine dependence; Z83.3 Family history of diabetes mellitus; Z79.899 Other long term (current) drug therapy; Z92.21 Personal history of antineoplastic chemotherapy
CPT/HCPCS: 36415; 36600; 71045; 80047; 80048; 80053; 81001; 82805; 82962; 83605; 83735; 83880; 84484; 85007; 85025; 85379; 87040; 87641; 93005; 94640; 94660; 94760; 96361; 96365; 96375; J1250; J1815; J1940; J2930; J3490; J7030; J7613; J7620; 97116; 99285-25

== ENCOUNTER 2018-09-04 02:18 | Inpatient (IN) | payer MEDICARE ==
[~2018-09-04] VITALS: Ht 170.2 cm; Wt 73.0 kg
[2018-09-04] VITALS (21 sets, daily range): BP systolic 72–150; BP diastolic 58–96
[~2018-09-04 02:18] MED LIST changes: -BUME2TAB PO; +BUME2TAB3 PO; +CARV3.1210 PO; -CARV3.122 PO; +CARV6.2511 PO; -CARV6.252 PO; +LINA5TAB PO; -LINA5TAB4 PO; -LOSA25TA5 PO; +LOSA25TA54 PO
[2018-09-04 02:41] LABS: BASE EXCESS ABG -5 mmol/L (-3-3); HCO3 ABG 22 mmol/L (21-28); PCO2 ABG 48 mmHg (35-46); PO2 ABG 75 mmHg (65-108); SAT O2 ABG 92 % (92-99)
[2018-09-04] MEDS ORDERED: IPRATROPIUM BROMIDE 0.5 MG/2.5 ML NEBU. NEB ONE (02:45)
[2018-09-04] MEDS ORDERED: methylPREDNISolone SOD SUCC PF 125 MG/2 ML VIAL. IV ONE (02:45)
[2018-09-04] MEDS ORDERED: ALBUTEROL SULFATE 2.5 MG/3 ML NEBU. CONT NEB ONE (02:45)
[2018-09-04] MEDS ORDERED: MAGNESIUM SULFATE 2GM 50 ML IV ONE (02:45)
[2018-09-04] MEDS ORDERED: FUROSEMIDE 100 MG/10 ML VIAL. ONE (02:50)
[2018-09-04 02:53] LABS: BASO # 0.2 x10^3/uL (0.0-0.2); BASO % 1 % (0-3); EOS # 0.2 x10^3/uL (0.0-0.7); EOS % 1 % (0-3); HEMATOCRIT 49.8 % (39.0-53.0); HEMOGLOBIN 16.5 g/dL (13.0-17.5); LYMPH # 3.4 x10^3/uL (1.0-4.8); LYMPH % 20 % (24-48); MEAN CORPUSCULAR HEMOGLOBIN 31 pg (25-35); MEAN CORPUSCULAR HGB CONC 33 g/dL (31-37); MEAN CORPUSCULAR VOLUME 93 fL (79-100); MONO % 6 % (0-9); NEUT # 12.3 x10^3uL (1.8-7.7); NEUT % 72 % (31-73); PLATELET COUNT 272 x10^3/uL (140-400); RED BLOOD COUNT 5.35 x10^6/uL (4.30-5.70); RED CELL DISTRIBUTION WIDTH 15.7 % (11.5-14.5); WHITE BLOOD COUNT 17.1 x10^3/uL (4.0-11.0)
[2018-09-04 02:55] LABS: CALCIUM 8.6 mg/dL (8.5-10.1); CREATININE 2.2 mg/dL (0.7-1.3); GFR 28.9; POTASSIUM 4.3 mmol/L (3.5-5.1)
[2018-09-04 02:57] LABS: FIO2 ABG 100
[2018-09-04] MEDS ORDERED: MORPHINE SULFATE 4 MG/ML VIAL. IV ONE (03:00)
[2018-09-04] MEDS ORDERED: ONDANSETRON PF 4 MG/2 ML VIAL. IV ONE (03:00)
[2018-09-04] MEDS ORDERED: FUROSEMIDE 40 MG/4 ML VIAL. IVP ONE (03:00)
[2018-09-04 03:09] LABS: ALBUMIN 3.5 g/dL (3.4-5.0); ALBUMIN/GLOBULIN RATIO 0.8 (1.0-1.7); MAGNESIUM 2.5 mg/dL (1.8-2.4); TOTAL BILIRUBIN 0.6 mg/dL (0.2-1.0); TOTAL PROTEIN 7.9 g/dL (6.4-8.2)
[2018-09-04] MEDS ORDERED: cefTRIAXone IV Push 1 GM VIAL. IVP ONE (03:45)
--- NOTE | 2018-09-04 03:54 | PHYS DOC ---
Past Medical History Past Medical History: CAD, Cancer, CHF, Gallstones, High Cholesterol, Hypertension, Renal Disease Additional Past Medical Histor: CARDIOMYOPATHY COLON CANCER WITH CHEMO Past Surgical History: Cholecystectomy, Other Additional Past Surgical Histo: DEFIBRILLATOR PLACED Alcohol Use: None Drug Use: None Adult General Chief Complaint Chief Complaint: DYSPNEA/RESPIRATOY DISTRESS HPI HPI Patient is an 82-year-old male who presents via EMS with report of severe shortness of breath that started this morning. Patient states that he awoke at about 1:45 AM feeling very short of breath. Patient had been atrial fibrillation and was being prepared for cardioversion and took a total of 400 mg of amiodarone. EMS reports that patient was placed on CPAP and oxygen saturation at 67% on 100% CPAP. Patient denying chest pain. Additional history is limited due to severity of patient's symptoms. Review of Systems Review of Systems Constitutional: Denies fever or chills [] Respiratory: Complains of cough and shortness of breath [] Cardiovascular: No additional information not addressed in HPI [] GI: Denies abdominal pain, nausea, vomitinga [] A full review of systems difficult to obtain due to severity of patient's symptoms. Current Medications Current Medications Current Medications Medications (Trade) Dose Ordered Sig/Carter Start Time Stop Time Status Last Admin Dose Admin Albuterol Sulfate (Ventolin Neb Soln) 5 mg 1X ONCE 09/04/18 02:45 09/04/18 02:46 DC 09/04/18 02:45 5 MG Azithromycin 250 ml @ 250 mls/hr 1X ONCE 09/04/18 04:00 09/04/18 04:59 09/04/18 03:59 250 MLS/HR Ceftriaxone Sodium (Rocephin) 1 gm 1X ONCE 09/04/18 03:45 09/04/18 03:46 DC 09/04/18 03:59 1 GM Furosemide (Lasix) 100 mg STK-MED ONCE 09/04/18 02:50 09/04/18 02:52 DC Insulin Human Regular (HumuLIN R VIAL) 6 unit 1X ONCE 09/04/18 04:00 09/04/18 04:01 DC 09/04/18 04:03 6 UNIT Ipratropium [place] (Atrovent) 0.5 mg 1X ONCE 09/04/18 02:45 09/04/18 02:46 DC 09/04/18 02:45 0.5 MG Magnesium Sulfate 50 ml @ 25 mls/hr 1X ONCE 09/04/18 02:45 09/04/18 04:44 09/04/18 03:07 25 MLS/HR Methylprednisolone Sodium Succinate (SOLU-Medrol 125MG VIAL) 125 mg 1X ONCE 09/04/18 02:45 09/04/18 02:46 DC 09/04/18 03:07 125 MG Morphine Sulfate (Morphine Sulfate) 4 mg 1X ONCE 09/04/18 03:00 09/04/18 03:01 DC 09/04/18 03:10 4 MG Ondansetron HCl (Zofran) 4 mg 1X ONCE 09/04/18 03:00 09/04/18 03:01 DC 09/04/18 03:12 4 MG Allergies Allergies Allergies Coded Allergies Type Severity Reaction Last Updated Verified I S O L A T I O N *CONTACT* Allergy Unknown 03/25/17 Yes No Known Medication Allergies Allergy Unknown 03/25/17 Yes Physical Exam Physical Exam Constitutional: Well developed, well nourished, in moderate respiratory distress. [] HENT: Normocephalic, atraumatic, bilateral external ears normal, oropharynx moist, no oral exudates, nose normal. [] Eyes: PERRLA, EOMI, conjunctiva normal, no discharge. [] Neck: Normal range of motion, no tenderness, supple, no stridor. [] Cardiovascular: Mildly tachycardic rate with regular rhythm[] Lungs & Thorax: Diminished breath sounds are noted bilaterally with coarse rhonchi heard throughout[] Abdomen: Bowel sounds normal, soft, no tenderness. [] Skin: Warm, dry, no erythema, no rash. [] Extremities: No tenderness, no cyanosis, no clubbing, ROM intact, no edema. [] Neurologic: Awake and alert, no focal deficits noted. [] Current Patient Data Vital Signs Vital Signs Date Time Temp Pulse Resp B/P (MAP) Pulse Ox O2 Delivery O2 Flow Rate FiO2 09/04/18 03:10 Room Air 09/04/18 02:53 92 09/04/18 02:18 98.0 105 27 177/95 (122) 98.0 Lab Values Laboratory Tests Test 09/04/18 02:30 09/04/18 02:35 White Blood Count 17.1 x10^3/uL (4.0-11.0) H Red Blood Count 5.35 x10^6/uL (4.30-5.70) Hemoglobin 16.5 g/dL (13.0-17.5) Hematocrit 49.8 % (39.0-53.0) Mean Corpuscular Volume 93 fL (79-100) Mean Corpuscular Hemoglobin 31 pg (25-35) Mean Corpuscular Hemoglobin Concent 33 g/dL (31-37) Red Cell Distribution Width 15.7 % (11.5-14.5) H Platelet Count 272 x10^3/uL (140-400) Neutrophils (%) (Auto) 72 % (31-73) Lymphocytes (%) (Auto) 20 % (24-48) L Monocytes (%) (Auto) 6 % (0-9) Eosinophils (%) (Auto) 1 % (0-3) Basophils (%) (Auto) 1 % (0-3) Neutrophils # (Auto) 12.3 x10^3uL (1.8-7.7) H Lymphocytes # (Auto) 3.4 x10^3/uL (1.0-4.8) Monocytes # (Auto) 1.0 x10^3/uL (0.0-1.1) Eosinophils # (Auto) 0.2 x10^3/uL (0.0-0.7) Basophils # (Auto) 0.2 x10^3/uL (0.0-0.2) Sodium Level 139 mmol/L (136-145) Potassium Level 4.3 mmol/L (3.5-5.1) Chloride Level 100 mmol/L (98-107) Carbon Dioxide Level 23 mmol/L (21-32) Anion Gap 16 (6-14) H Blood Urea Nitrogen 46 mg/dL (8-26) H Creatinine 2.2 mg/dL (0.7-1.3) H Estimated GFR (Cockcroft-Gault) 28.9 BUN/Creatinine Ratio 21 (6-20) H Glucose Level 364 mg/dL (70-99) H Lactic Acid Level 4.0 mmol/L (0.4-2.0) *H Calcium Level 8.6 mg/dL (8.5-10.1) Magnesium Level 2.5 mg/dL (1.8-2.4) H Total Bilirubin 0.6 mg/dL (0.2-1.0) Aspartate Amino Transferase (AST) 18 U/L (15-37) Alanine Aminotransferase (ALT) 16 U/L (16-63) Alkaline Phosphatase 107 U/L (46-116) Troponin I Quantitative 0.033 ng/mL (0.000-0.055) RB-Edg-P-Type Natriuretic Peptide 3914 pg/mL (0-449) H Total Protein 7.9 g/dL (6.4-8.2) Albumin 3.5 g/dL (3.4-5.0) Albumin/Globulin Ratio 0.8 (1.0-1.7) L Procalcitonin < 0.10 ng/mL (0.00-0.10) O2 Saturation 92 % (92-99) Arterial Blood pH 7.28 (7.35-7.45) L Arterial Blood pCO2 at Patient Temp 48 mmHg (35-46) H Arterial Blood pO2 at Patient Temp 75 mmHg (65-108) Arterial Blood HCO3 22 mmol/L (21-28) Arterial Blood Base Excess -5 mmol/L (-3-3) L FiO2 100 Laboratory Tests 09/04/18 02:30 Laboratory Tests 09/04/18 02:30 EKG EKG [] Interpretation Time: EKG demonstrates a ventricular paced rhythm with rate of 107. Radiology/Procedures Radiology/Procedures [] Impressions: Chest x-ray demonstrates enlarged cardiac silhouette with increased pulmonary vasculature. Course & Med Decision Making Course & Med Decision Making Pertinent Labs and Imaging studies reviewed. (See chart for details) A total of 40 minutes of critical care time was spent on this patient exclusive of separately billable procedures and includes direct [id number] time spent with this patient, ordering and reviewing of both radiologic and laboratory studies, discussion of patient's case with specialist, and documentation on this patient's medical record. Dragon Disclaimer Dragon Disclaimer This electronic medical record was generated, in whole or in part, using a voice recognition dictation system. Departure Departure Impression: Primary Impression: CHF exacerbation Additional Impressions: Acute respiratory failure with hypoxemia Leukocytosis [id number] kidney injury Disposition: 09 ADMITTED INPATIENT Admitting Physician: Tom Foster Condition: IMPROVED Referrals: TOM FOSTER MD (PCP) Problem Qualifiers Primary Impression: CHF exacerbation Heart failure type: unspecified Qualified Codes: I50.9 - Heart failure, unspecified Additional Impressions: Leukocytosis Leukocytosis type: unspecified Qualified Codes: D72.829 - Elevated white blood cell count, unspecified CARLYN PICKENS Jr., DO Sep 04, 2018 03:54
[2018-09-04] MEDS ORDERED: AZITHRMYCN 500MG IVPB FOR OMNI 250 ML IV ONE (04:00)
[2018-09-04] MEDS ORDERED: INSULIN REGULAR 100 UNIT/ML 3ML VIAL. IV ONE (04:00)
[2018-09-04] MEDS ORDERED: MORPHINE SULFATE 4 MG/ML VIAL. IV PRN (04:15)
[2018-09-04] MEDS ORDERED: ACETAMINOPHEN 325 MG TABLET. PO PRN ×2 (04:15→11:15)
[2018-09-04 04:55] LABS: INFLUENZA A PATIENT NEGATIVE (NEGATIVE); INFLUENZA B PATIENT NEGATIVE (NEGATIVE)
[2018-09-04] MEDS ORDERED: IV NORMAL SALINE 500ML BAG 500 ML IV ONE ×2 (05:00→05:30)
--- NOTE | 2018-09-04 06:01 | NUR ---
Patient admitted to ICU room 102 via gurney accompanied by RN and RT. Patient returned to Bipap, case monitor, and pulse ox. Patient oreitned to room, TV remote/ call light, and safety policies. Patients family answering questions to complete admission information. Patient drowsy in and out of sleep at this time. See admission information for details.
[2018-09-04] MEDS: IPRATRPIUM/ALBUTEROL 0.5/2.5MG 3 ML NEBU. NEB SCH ×4 (07:59→20:12)
[2018-09-04 08:08] LABS: BASE EXCESS ABG -3 mmol/L (-3-3); HCO3 ABG 22 mmol/L (21-28); PCO2 ABG 41 mmHg (35-46); PO2 ABG 92 mmHg (65-108); SAT O2 ABG 96 % (92-99)
[2018-09-04 08:10] LABS: FIO2 ABG BIPAP 80%
--- NOTE | 2018-09-04 08:27 | RAD ---
Indication:difficulty breathing TECHNIQUE:Portable AP chest X-ray COMPARISON:04/04/2018 FINDINGS: Median sternotomy. Heart is mildly enlarged in size. Stable position of left chest wall cardiac pacer. Diffuse interstitial opacities are seen, more in the left upper lobe. No pneumothorax or pleural effusion. Visualized bony thorax is within normal limits. IMPRESSION: Bilateral lung findings may be secondary to interstitial pulmonary edema or atypical/viral infection. Electronically signed by: Hood Norris DO (09/04/2018 8:24 AM) [facility]
[2018-09-04] MEDS ORDERED: METO-239 PO (08:30)
[2018-09-04] MEDS ORDERED: AMIO200T4 PO (08:31)
--- NOTE | 2018-09-04 09:01 | EKG ---
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
--- NOTE | 2018-09-04 10:22 | NUR ---
IP Pt has a hx of + mrsa screens since 2017 with most recent on 09/22/17. Pt has one documented negative on 04/07/18. Pt to be in contact precautions until current screen is verified as second negative.
--- NOTE | 2018-09-04 10:56 | PDOC ---
Infectious Disease Note Vital Sign Vital Signs Vital Signs Date Time Temp Pulse Resp B/P (MAP) Pulse Ox O2 Delivery O2 Flow Rate FiO2 09/04/18 10:00 100 18 107/83 (91) 97 BiPAP/CPAP 09/04/18 08:00 98.0 98.0 Labs Lab Laboratory Tests Test 09/04/18 02:30 09/04/18 02:35 09/04/18 04:21 09/04/18 06:45 White Blood Count 17.1 x10^3/uL (4.0-11.0) Red Blood Count 5.35 x10^6/uL (4.30-5.70) Hemoglobin 16.5 g/dL (13.0-17.5) Hematocrit 49.8 % (39.0-53.0) Mean Corpuscular Volume 93 fL (79-100) Mean Corpuscular Hemoglobin 31 pg (25-35) Mean Corpuscular Hemoglobin Concent 33 g/dL (31-37) Red Cell Distribution Width 15.7 % (11.5-14.5) Platelet Count 272 x10^3/uL (140-400) Neutrophils (%) (Auto) 72 % (31-73) Lymphocytes (%) (Auto) 20 % (24-48) Monocytes (%) (Auto) 6 % (0-9) Eosinophils (%) (Auto) 1 % (0-3) Basophils (%) (Auto) 1 % (0-3) Neutrophils # (Auto) 12.3 x10^3uL (1.8-7.7) Lymphocytes # (Auto) 3.4 x10^3/uL (1.0-4.8) Monocytes # (Auto) 1.0 x10^3/uL (0.0-1.1) Eosinophils # (Auto) 0.2 x10^3/uL (0.0-0.7) Basophils # (Auto) 0.2 x10^3/uL (0.0-0.2) Sodium Level 139 mmol/L (136-145) Potassium Level 4.3 mmol/L (3.5-5.1) Chloride Level 100 mmol/L (98-107) Carbon Dioxide Level 23 mmol/L (21-32) Anion Gap 16 (6-14) Blood Urea Nitrogen 46 mg/dL (8-26) Creatinine 2.2 mg/dL (0.7-1.3) Estimated GFR (Cockcroft-Gault) 28.9 BUN/Creatinine Ratio 21 (6-20) Glucose Level 364 mg/dL (70-99) Lactic Acid Level 4.0 mmol/L (0.4-2.0) 2.0 mmol/L (0.4-2.0) Calcium Level 8.6 mg/dL (8.5-10.1) Magnesium Level 2.5 mg/dL (1.8-2.4) Total Bilirubin 0.6 mg/dL (0.2-1.0) Aspartate Amino Transf (AST/SGOT) 18 U/L (15-37) Alanine Aminotransferase (ALT/SGPT) 16 U/L (16-63) Alkaline Phosphatase 107 U/L (46-116) Troponin I Quantitative 0.033 ng/mL (0.000-0.055) 0.048 ng/mL (0.000-0.055) ZR-Pky-Y-Type Natriuretic Peptide 3914 pg/mL (0-449) Total Protein 7.9 g/dL (6.4-8.2) Albumin 3.5 g/dL (3.4-5.0) Albumin/Globulin Ratio 0.8 (1.0-1.7) Procalcitonin < 0.10 ng/mL (0.00-0.10) O2 Saturation 92 % (92-99) Arterial Blood pH 7.28 (7.35-7.45) Arterial Blood pCO2 at Patient Temp 48 mmHg (35-46) Arterial Blood pO2 at Patient Temp 75 mmHg (65-108) Arterial Blood HCO3 22 mmol/L (21-28) Arterial Blood Base Excess -5 mmol/L (-3-3) FiO2 100 Influenza Type A Antigen Negative (NEGATIVE) Influenza Type B Antigen Negative (NEGATIVE) Test 09/04/18 08:01 09/04/18 09:50 O2 Saturation 96 % (92-99) Arterial Blood pH 7.36 (7.35-7.45) Arterial Blood pCO2 at Patient Temp 41 mmHg (35-46) Arterial Blood pO2 at Patient Temp 92 mmHg (65-108) Arterial Blood HCO3 22 mmol/L (21-28) Arterial Blood Base Excess -3 mmol/L (-3-3) FiO2 Bipap 80% Troponin I Quantitative 0.050 ng/mL (0.000-0.055) Objective Assessment Lactic acidosis CHF/Pulmonary edema Leukocytosis likely reactive Pulmonary infiltrate Hypoxemia Cardiomyopathy Renal insufficiency Plan Plan of Care lasix/bumex culture blood and sputum charlotteepascencion soto x 1 d/w family JOSÉ MIGUEL CONROY MD Sep 04, 2018 10:56
[2018-09-04] MEDS ORDERED: NITROGLYCERIN SUBLINGUAL 0.4 MG BOTTLE OF 25. SL PRN (11:15)
[2018-09-04] MEDS ORDERED: MAGNESIUM HYDROXIDE 2,400 MG/30 ML ORAL.SUSP. PO PRN (11:15)
--- NOTE | 2018-09-04 11:18 | PDOC ---
Provider Note Provider Note Patient seen. History and Physical dictated. See dictation#[id number] TOM FOSTER MD Sep 04, 2018 11:18
[2018-09-04] MEDS: ASPIRIN CHEWABLE 81 MG TABLET. PO SCH (11:23)
[2018-09-04] MEDS: OMEGA-3 FATTY ACIDS/FISH OIL 1,000 MG CAPSULE. PO SCH (11:23)
[2018-09-04] MEDS: CYANOCOBALAMIN (VITAMIN B-12) 1,000 MCG TABLET. PO SCH (11:23)
[2018-09-04] MEDS: LEVOTHYROXINE 50 MCG TABLET PO SCH (11:23)
[2018-09-04] MEDS: MULTIVITAMIN with MINERAL TABLET. PO SCH (11:23)
[2018-09-04] MEDS: MAGNESIUM OXIDE 400 MG TABLET PO SCH (11:23)
--- NOTE | 2018-09-04 11:50 | CONS ---
DATE OF CONSULTATION: ATTENDING PHYSICIAN: Dr. Alfred Norris. REASON FOR CONSULTATION: Respiratory failure. HISTORY OF PRESENT ILLNESS: The patient is an 82-year-old male who has a history of severe cardiomyopathy with an EF of 10%. The patient has been in atrial fibrillation and being followed by his safety technician, Dr. Barraza who increased the dose of metoprolol recently and then recently added amiodarone. The patient's family said that he somehow delayed on taking his Bumex and then he became progressively short of breath. This has happened previously when his diuretics were not taken on time. He was seen in the Emergency Room with saturations of 67% on 100% CPAP and he has been in atrial fibrillation. He had no chest pain, no cough, no fever and no chills. No headaches. No nausea, vomiting or diarrhea. His chest x-ray was reviewed. This shows cardiomegaly and evidence of interstitial edema. Somehow in the ER, he triggered the sepsis criteria and received IV fluids 1 liter as well as Lasix as well. He is much clinically better. He is off the BiPAP and he is on a nasal cannula. He had mild reactive leukocytosis. He has no fever. No cough and no purulent sputum production. PAST MEDICAL HISTORY: 1. History of severe cardiomyopathy with an EF of 10-15%. 2. No significant history of tobacco use. 3. History of congestive heart failure, chronic systolic; dyslipidemia; hypertension and renal insufficiency. PAST SURGICAL HISTORY: Defibrillator placement and cholecystectomy. ALLERGIES: None. MEDICATIONS: Reviewed as listed in the MRAD. He is also on Eliquis. SYSTEM REVIEW: Twelve-point system obtained. Pertinent positives discussed in my history of present illness, otherwise noncontributory. All systems that were negative were reviewed as well. FAMILY HISTORY: Noncontributory to lungs. PHYSICAL EXAMINATION: VITAL SIGNS: Reviewed, stable. He is off the BiPAP and on a cannula. HEENT: Sclerae nonicteric. NECK: Supple. LUNGS: Diminished breath sounds at the bases. CARDIOVASCULAR: Regular rate and rhythm. ABDOMEN: Soft, nontender. EXTREMITIES: With trace pitting edema. LABORATORY DATA: Reviewed. Influenza screen negative. Lactic acid was 4.0 and now down to 2.0. ABGs showed a pH of 7.28, pCO2 of 48 and a pO2 of 75 on 100% initially, now pH is 7.36, pCO2 of 41 and a pO2 92. This was on 80% BiPAP and now on a nasal cannula. IMPRESSION: 1. Acute hypercapnic and hypoxic respiratory failure secondary to acute on chronic systolic heart failure. 2. Abnormal chest x-ray consistent with congestive heart failure. 3. Severe cardiomyopathy with an EF of 10-15%. 4. Atrial fibrillation triggering congestive heart failure. 5. No signs of any infection. 6. No significant history of tobacco use. RECOMMENDATIONS: 1. Antibiotics can be discontinued. 2. Continue nasal cannula to keep saturation 92 to 94%. 3. Follow with chest x-ray. 4. Continue diuresis. 5. Continue Eliquis for atrial fibrillation. 6. Follow Cardiology recommendation. 7. Follow Infectious Disease recommendations. 8. P.r.n. BiPAP. 9. Discussed with the patient's family and Dr. Rangel. Critical care time 35 minutes. BABATUNDE THEODORE MD DR: GENOVEVA/chet JOB#: [id number] / [id number]
[2018-09-04] MEDS ORDERED: APIXABAN 2.5 MG TABLET. PO SCH (12:00)
--- NOTE | 2018-09-04 12:43 | PDOC2 ---
CARDIAC CONSULT DATE OF CONSULT Date of Consult DATE: 09/04/18 TIME: 12:34 REASON FOR CONSULT Reason for Consult: CHF REFERRING PHYSICIAN Referring Physician: Dr. Champagne SOURCE Source: Chart review, Patient HISTORY OF PRESENT ILLNESS HISTORY OF PRESENT ILLNESS This is an 82 yo male, with a history of severe ICM, CAD s/p CABG x2 with most recent in 2002, HTN, HLP, and diabetes, who presented secondary to shortness of breath. Patient follows closely with Dr. Barraza on an outpatient basis. Had stress test and echo this week. Missed a couple of doses of medications as he was NPO for testing. Went to bed last night and had difficulty sleeping. Woke up about 2 am and went the the bathroom. We he returned to bed, had difficulty breathing. Became wheezy and had pain in his upper back, which is abnormal for him. Denies any dizziness, diaphoresis, chest pain, or palpitations. Checked oxygen saturated and was 88%. SOA progressively worsened and saturations dropped to 74% and EMS was called. Was placed on BiPAP, which seemed to improve symptoms. Also noted in AFIB with RVR. Requested to go to [facility] where he could be followed by Dr. Barraza, but EMS felt he was too unstable. Patient has a history of PAFIB. Was previously on Amiodarone, but was discontinue due to renal insufficiency. Dr. Barraza started him back on the Amiodarone two days ago and was to have cardioversion at [facility] next week. Patient is on Eliquis for stroke prophylaxis. PAST MEDICAL HISTORY Cardiovascular: AFIB, CAD, CHF (ICM), HTN, Hyperlipidemia Pulmonary: COPD CENTRAL NERVOUS SYSTEM: Other (no pertinent hx) GI: No pertinent hx Heme/Onc: Cancer (colon ) Hepatobiliary: No pertinent hx Psych: No pertinent hx Musculoskeletal: Osteoarthritis Rheumatologic: No pertinent hx Infectious disease: No pertinent hx ENT: No pertinent hx Renal/: Chronic renal insuff Endocrine: Diabetes, Hypothyroidism Dermatology: No pertinent hx PAST SURGICAL HISTORY Past Surgical History: Pacemaker ([employer] [place]), Cholecystectomy, CABG, Tonsillectomy, Colectomy FAMILY HISTORY Family History: Coronary Artery Disease, Diabetes SOCIAL HISTORY Smoke: No ALCOHOL: none Drugs: None Lives: with Family CURRENT MEDICATIONS CURRENT MEDICATIONS Current Medications Medications (Trade) Dose Ordered Sig/Carter Route PRN Reason Start Time Stop Time Status Last Admin Dose Admin Ipratropium [place] (Atrovent) 0.5 mg 1X ONCE NEB 09/04/18 02:45 09/04/18 02:46 DC 09/04/18 02:45 Methylprednisolone Sodium Succinate (SOLU-Medrol 125MG VIAL) 125 mg 1X ONCE IV 09/04/18 02:45 09/04/18 02:46 DC 09/04/18 03:07 Albuterol Sulfate (Ventolin Neb Soln) 5 mg 1X ONCE CONT NEB 09/04/18 02:45 09/04/18 02:46 DC 09/04/18 02:45 Magnesium Sulfate 50 ml @ 25 mls/hr 1X ONCE IV 09/04/18 02:45 09/04/18 04:44 DC 09/04/18 03:07 Morphine Sulfate (Morphine Sulfate) 4 mg 1X ONCE IV 09/04/18 03:00 09/04/18 03:01 DC 09/04/18 03:10 Ondansetron HCl (Zofran) 4 mg 1X ONCE IV 09/04/18 03:00 09/04/18 03:01 DC 09/04/18 03:12 Furosemide (Lasix) 80 mg 1X ONCE IVP 09/04/18 03:00 09/04/18 03:01 DC 09/04/18 03:09 Ceftriaxone Sodium (Rocephin) 1 gm 1X ONCE IVP 09/04/18 03:45 09/04/18 03:46 DC 09/04/18 03:59 Azithromycin 250 ml @ 250 mls/hr 1X ONCE IV 09/04/18 04:00 09/04/18 04:59 DC 09/04/18 03:59 Insulin Human Regular (HumuLIN R VIAL) 6 unit 1X ONCE IV 09/04/18 04:00 09/04/18 04:01 DC 09/04/18 04:03 Albuterol/ Ipratropium (Duoneb) 3 ml RTQID NEB 09/04/18 08:00 09/11/18 07:59 09/04/18 11:16 Sodium Chloride 500 ml @ 500 mls/hr 1X ONCE IV 09/04/18 05:00 09/04/18 05:59 DC 09/04/18 04:55 Sodium Chloride 500 ml @ 500 mls/hr 1X ONCE IV 09/04/18 05:30 09/04/18 06:29 DC 09/04/18 05:33 Aspirin (Children'S Aspirin) 81 mg DAILY PO 09/04/18 11:15 09/04/18 11:23 Cyanocobalamin (Vitamin B-12) 1,000 mcg DAILY PO 09/04/18 11:00 09/04/18 11:23 Multivitamins (Thera M Plus) 1 tab DAILY PO 09/04/18 11:00 09/04/18 11:23 Levothyroxine Sodium (Synthroid) 50 mcg DAILY06 PO 09/04/18 11:00 09/04/18 11:23 Magnesium Oxide (Magnesium Oxide) 400 mg DAILY PO 09/04/18 11:00 09/04/18 11:23 Fish Oil (Fish Oil) 2,000 mg DAILY PO 09/04/18 11:00 09/04/18 11:23 ALLERGIES ALLERGIES: Coded Allergies: I S O L A T I O N *CONTACT* (Verified Allergy, Unknown, 03/25/17) mrsa No Known Medication Allergies (Verified Allergy, Unknown, 03/25/17) ROS Review of System 14 point ROS conducted with pertinent positives noted above in HPI. PHYSICAL EXAM General: Alert, Oriented X3, Cooperative, No acute distress HEENT: Atraumatic, Mucous membr. moist/pink Lungs: Other (bibasilar crackles) Heart: Regular rate, Other (intermittent v-paced with underlying SR wtih 1st degree) Abdomen: Soft, No tenderness Extremities: No edema, Normal pulses Skin: No breakdown, No significant lesion Neuro: Normal speech, Sensation intact Psych/Mental Status: Mental status NL, Mood NL MUSCULOSKELETAL: Osteoarthritic changes both hands VITALS VITALS Vital Signs Date Time Temp Pulse Resp B/P (MAP) Pulse Ox O2 Delivery O2 Flow Rate FiO2 09/04/18 11:17 93 Nasal Cannula 4.0 09/04/18 11:00 86 20 100/73 (82) 09/04/18 08:00 98.0 98.0 LABS Lab: Laboratory Tests Test 09/04/18 02:30 09/04/18 02:35 09/04/18 04:21 09/04/18 06:45 White Blood Count 17.1 x10^3/uL (4.0-11.0) Red Blood Count 5.35 x10^6/uL (4.30-5.70) Hemoglobin 16.5 g/dL (13.0-17.5) Hematocrit 49.8 % (39.0-53.0) Mean Corpuscular Volume 93 fL (79-100) Mean Corpuscular Hemoglobin 31 pg (25-35) Mean Corpuscular Hemoglobin Concent 33 g/dL (31-37) Red Cell Distribution Width 15.7 % (11.5-14.5) Platelet Count 272 x10^3/uL (140-400) Neutrophils (%) (Auto) 72 % (31-73) Lymphocytes (%) (Auto) 20 % (24-48) Monocytes (%) (Auto) 6 % (0-9) Eosinophils (%) (Auto) 1 % (0-3) Basophils (%) (Auto) 1 % (0-3) Neutrophils # (Auto) 12.3 x10^3uL (1.8-7.7) Lymphocytes # (Auto) 3.4 x10^3/uL (1.0-4.8) Monocytes # (Auto) 1.0 x10^3/uL (0.0-1.1) Eosinophils # (Auto) 0.2 x10^3/uL (0.0-0.7) Basophils # (Auto) 0.2 x10^3/uL (0.0-0.2) Sodium Level 139 mmol/L (136-145) Potassium Level 4.3 mmol/L (3.5-5.1) Chloride Level 100 mmol/L (98-107) Carbon Dioxide Level 23 mmol/L (21-32) Anion Gap 16 (6-14) Blood Urea Nitrogen 46 mg/dL (8-26) Creatinine 2.2 mg/dL (0.7-1.3) Estimated GFR (Cockcroft-Gault) 28.9 BUN/Creatinine Ratio 21 (6-20) Glucose Level 364 mg/dL (70-99) Lactic Acid Level 4.0 mmol/L (0.4-2.0) 2.0 mmol/L (0.4-2.0) Calcium Level 8.6 mg/dL (8.5-10.1) Magnesium Level 2.5 mg/dL (1.8-2.4) Total Bilirubin 0.6 mg/dL (0.2-1.0) Aspartate Amino Transf (AST/SGOT) 18 U/L (15-37) Alanine Aminotransferase (ALT/SGPT) 16 U/L (16-63) Alkaline Phosphatase 107 U/L (46-116) Troponin I Quantitative 0.033 ng/mL (0.000-0.055) 0.048 ng/mL (0.000-0.055) KB-Jgc-A-Type Natriuretic Peptide 3914 pg/mL (0-449) Total Protein 7.9 g/dL (6.4-8.2) Albumin 3.5 g/dL (3.4-5.0) Albumin/Globulin Ratio 0.8 (1.0-1.7) Procalcitonin < 0.10 ng/mL (0.00-0.10) O2 Saturation 92 % (92-99) Arterial Blood pH 7.28 (7.35-7.45) Arterial Blood pCO2 at Patient Temp 48 mmHg (35-46) Arterial Blood pO2 at Patient Temp 75 mmHg (65-108) Arterial Blood HCO3 22 mmol/L (21-28) Arterial Blood Base Excess -5 mmol/L (-3-3) FiO2 100 Influenza Type A Antigen Negative (NEGATIVE) Influenza Type B Antigen Negative (NEGATIVE) Test 09/04/18 08:01 09/04/18 09:50 09/04/18 11:30 O2 Saturation 96 % (92-99) Arterial Blood pH 7.36 (7.35-7.45) Arterial Blood pCO2 at Patient Temp 41 mmHg (35-46) Arterial Blood pO2 at Patient Temp 92 mmHg (65-108) Arterial Blood HCO3 22 mmol/L (21-28) Arterial Blood Base Excess -3 mmol/L (-3-3) FiO2 Bipap 80% Troponin I Quantitative 0.050 ng/mL (0.000-0.055) Glucose (Fingerstick) 201 mg/dL (70-99) ECHOCARDIOGRAM ECHOCARDIOGRAM CONCLUSION 1. Severe systolic and diastolic dysfunction of the left ventricle 2. A low cardiac output of only 20-30% of normal. 3. Moderate mitral and tricuspid regurgitation. 4. Mild aortic and pulmonic regurgitation. 5. Moderate pulmonary hypertension. DATE: 01/24/171937 HEART CATH HEART CATH FINDINGS 1. Hemodynamics: Left ventricular end-diastolic pressure 28 mmHg. No pullback gradient across the aortic valve. 2. Left ventriculography: Severe left ventricle systolic dysfunction with ejection fraction estimated at 10-15%. No significant mitral regurgitation seen. 3. Coronary and bypass graft angiography: a. The left main coronary artery arose from the left sinus of Valsalva and showed 90% diffuse disease. b. The left anterior descending artery was 100% occluded proximally. c. The left circumflex artery showed 100% occlusion proximally with reconstitution of the mid segment from bridging collaterals and also via retrograde flow from the saphenous vein graft. d. The right coronary artery was 100% occluded proximally. There is reconstitution of the posterior descending artery from [id number] collaterals from left anterior descending as well as left circumflex arteries. e. The saphenous vein graft to the right coronary artery was 100% occluded proximally. f. The saphenous vein graft to the obtuse marginal branch was patent. g. The left internal mammary artery graft to the left anterior descending artery was widely patent. Distal to the anastomosis, the [place] left anterior descending artery did not show any significant stenosis. Conclusion 1. Severe [place] vessel coronary artery disease as described above s/p coronary artery bypass surgery with occluded saphenous vein graft to the right coronary artery, patent saphenous vein graft to the marginal branch and patent left internal mammary artery graft to the left anterior descending artery. 2. Severe left ventricle systolic dysfunction with ejection fraction estimated at 10-15% Recommendations Medical Therapy DATE: 04/24/16 0654 ASSESSMENT/PLAN ASSESSMENT/PLAN Acute hypoxic, hypercapnic respiratory failure Acute on chronic systolic HF; CXR with pul edema. Improved with diuresis ICM s/p AICD ([employer]); LVEF 15-20% PAFIB; with RVR upon EMS arrival CAD s/p CABG x 2 with most recent is 2002. Cath in 2016 with occluded SVG to RCA , patent SVG to OM branch, and patent DICKERSON to LAD as noted above. CP free. Stress test performed yesterday with Dr. Barraza. Hypertension; BP marginal Hyperlipidemia; statin Diabetes, II; as per PCP WILNER on CKD Leukocytosis, lactic acidosis Recommendation Resume oral Bumex as BP tolerates. Additional diuresis PRN Obtain echo and stress test report from Dr. Barraza's office Continue Amiodarone Resume metoprolol, at a lower dose, for rate control as BP allows Eliquis for stroke prophylaxis Hold Enstresto for now Secondary prevention measures Interrogate AICD. Supportive care Further recommendations pending review of OSH records. ANNY MOSCOSO APRN Sep 04, 2018 12:43
--- NOTE | 2018-09-04 12:52 | HP ---
ADMIT DATE: 09/04/2018 HISTORY OF PRESENT ILLNESS: This 82-year-old male was seen by Dr. Barraza yesterday and underwent a chemical stress test. I spoke to Dr. Barraza yesterday because it was not clear if the patient has been taking amiodarone. Apparently, Dr. Linares had told him in 03/2018 that he should stop amiodarone; however, as per our office records and subsequent hospitalizations, he is supposed to be taking amiodarone daily. The patient tolerated a chemical stress test and went home and yesterday during the daytime as well as the day before, he has not had any fever, cold, cough, congestion or chills, but last night he woke up being very short of breath, and he became hypoxic and at around 1:45 a.m., he had the symptoms, so he was sent to the Emergency Room where he was noted to be in atrial fibrillation with fast ventricular rate. The patient has a history of atrial fibrillation. He also had an O2 sat of 67% and was placed on BiPAP and then he was admitted to ICU for further evaluation and management. LABORATORY DATA: Showed a WBC count of 17.1, hemoglobin 16.5. Lactic acid level initially was 4 and then subsequently 2. Cardiac enzymes have been normal. BNP was 3914. Sodium 139, potassium 4.3, BUN 46, creatinine 2.2. In the Emergency Room, the patient was given IV Lasix 80 mg, but subsequently he became hypotensive and required 1 liter of fluids. Currently, he is on BiPAP, but he is able to speak, and he is thirsty and he would like to eat. REVIEW OF SYSTEMS: The patient denies any fever, chills, dizziness or diaphoresis. He denies any chest pains or palpitations. Day before yesterday, he was doing fine and has not had any flu-like symptoms. His symptoms started last night. Yesterday, he took his Bumex late and some of his medications, the office routine schedule because of the stress test. He also did not eat much during the daytime. As noted in the history of present illness. The patient has not had any other symptoms. Chest x-ray showed bilateral infiltrates. Because of the acute respiratory failure, the patient was admitted for further evaluation and management. ABG in the Emergency Room showed pH 7.28, pCO2 of 48 and pO2 of 75 on 100% FiO2 and subsequently on BiPAP, pH improved to 7.36, pCO2 of 41 and a pO2 of 92. PAST MEDICAL HISTORY: The patient was last admitted here in 03/2018. He has had multiple admissions for acute on chronic systolic and diastolic congestive heart failure with ejection fraction of 10-15%. He has AICD, hypertension, atrial fibrillation, coronary artery disease, had stent and CABG, hyperlipidemia, moderate mitral regurgitation, history of right-sided pleural effusion with recurrent thoracentesis in the past. He also has had a colon cancer with surgery as well as chemotherapy, chronic renal insufficiency, has had 3 previous episodes of acute renal failure requiring temporary hemodialysis in 01/2017 and diabetes mellitus type 2. PAST SURGICAL HISTORY: The patient has a thoracentesis in 01/2017, had permanent pacemaker converted to AICD in 01/2017. Cholecystectomy, CABG and colon resection. FAMILY HISTORY: Positive for diabetes, hypertension and heart disease. SOCIAL HISTORY: Past history of smoking. No history of alcoholism or drug abuse. ALLERGIES: None known any. MEDICATIONS: Reviewed and reconciled. I have not restarted some of the cardiac medications. PHYSICAL EXAMINATION: GENERAL: The patient is an elderly male who is alert, oriented and in mild respiratory distress. He is on BiPAP. VITAL SIGNS: After admission pulse of 102 per minute, blood pressure was 112/73. Subsequently, temperature was 97.6, respirations 20 per minute, blood pressure dropped to 72/58 mmHg. HEENT: The patient is alert and oriented. Eyes: Pupils reacting to light. Conjunctivae pale. Sclerae muddy. Partial exam as the patient is on BiPAP. Unremarkable. NECK: JVP normal. No thyromegaly. Trachea midline. LUNGS: Decreased breath sounds at bases. No wheezing. No rales at this time. CARDIOVASCULAR: S1, S2 irregular, tachycardia present. ABDOMEN: Soft, nontender, no guarding, no rigidity. Bowel sounds present. EXTREMITIES: No edema. NEUROLOGIC: Alert and oriented. Laboratory findings and chest x-ray as noted in the history of present illness. IMPRESSION: 1. Acute on chronic hypercapnic and hypoxic respiratory failure. 2. Exacerbation of chronic obstructive pulmonary disease. 3. Possible pneumonia. 4. Lactic acidosis. 5. Atrial fibrillation with fast ventricular rate. 6. Lactic acidosis. 7. Hypotension. 8. [id number] systolic and diastolic congestive heart failure with ejection fraction of 10-15%. 9. Moderate mitral regurgitation. 10. Coronary artery disease, status post CABG and stent placement. 11. Hyperlipidemia. 12. History of colon cancer. 13. History of automatic implantable cardioverter defibrillator. 14. History of valvulopathy, moderate mitral regurgitation, tricuspid regurgitation, mild aortic regurgitation with pulmonary valve regurgitation. 15. Moderate pulmonary hypertension. PLAN: Because of the low blood pressure, I will keep her diuretics on hold. I will keep amiodarone and other cardiac medications on hold for now until seen by the tentering machine feeder. Consult Dr. David Rangel because of the lactic acidosis and possible lung infection. The patient has been given IV Rocephin and Zithromax. I will keep him off the BiPAP and see if he can eat and keep him on oxygen by nasal cannula. Consult Dr. Trejo for pulmonary evaluation and management. Condition and treatment extensively discussed with the patient and the family in the Intensive Care Unit. TOM FOSTER MD DR: IVANNA/nts JOB#: [id number] / [id number]
--- NOTE | 2018-09-04 13:04 | NUR ---
SS following for discharge planning. SS reviewed pt chart. Pt is from home and is currently requiring oxygen. No discharge needs noted at this time. SS will continue to follow for pending discharge needs.
[2018-09-04] MEDS: APIXABAN 2.5 MG TABLET. PO SCH ×2 (16:58→20:30)
[2018-09-04] MEDS ORDERED: DEXTROSE 50% 25 GM / 50ML DISP.SYRIN. IV PRN (17:00)
[2018-09-04] MEDS: INSULIN LISPRO 300 UNITS/3 ML INSULN.PEN. SQ SCH (17:06)
--- NOTE | 2018-09-04 17:15 | NUR ---
pt up to chair at bedside. pt stated "I feel better when I am up going". quality assurance monitor final showing sr with bbb with intermittent afib and ventricular pacing with a few episodes of vtach 4 to 8 beats. pacemaker interogated by [employer] written report of echocardiogram and lexiscan performed at Dr. Hurtado office this week. reported to sylvie Middleton.
[2018-09-04] MEDS ORDERED: METOPROLOL TART IMMED RELEASE 25 MG TABLET. PO ONE (19:30)
[2018-09-04] MEDS: MONTELUKAST SODIUM 10 MG TABLET. PO SCH (20:31)
[2018-09-04] MEDS: AMIODARONE HCL 200 MG TABLET. PO SCH (20:31)
[2018-09-04] MEDS: ATORVASTATIN CALCIUM 40 MG TABLET. PO SCH (20:31)
[2018-09-04] MEDS: METOPROLOL TART IMMED RELEASE 25 MG TABLET. PO SCH (21:00)
--- NOTE | 2018-09-04 23:34 | CONS ---
DATE OF CONSULTATION: 09/04/2018 REQUESTING PHYSICIAN: Dr. Norris. REASON FOR CONSULTATION: Lactic acidosis and leukocytosis, rule out sepsis. HISTORY OF PRESENT ILLNESS: This is an 82-year-old gentleman with cardiomyopathy, who has recently had an echo as well as chemical stress test and he was supposed to have in a few days cardioversion for AFib, who presented with sudden onset of shortness of breath at night and hypoxia. The patient says yesterday he had, I believe, chemical stress test. He did not get his Bumex as a part of n.p.o. and he went home, he was fine. The patient did not have any symptoms. There was no fever. There was no cough. There was no shortness of breath. The patient went to bed, he had to stay up because of neighbor's dogs were barking a lot, so he could not sleep and then when he woke up in the wholesale buyer was unable to breathe. The patient was noted to be hypoxic, hence he was rushed. The ambulance was called and he was rushed to the hospital. The patient was found to be in pulmonary edema. The patient was given Lasix and BiPAP and he is already feeling better. He is comfortably breathing with oxygen and BiPAP was taken off. Blood pressure has been low stable. The patient denies any nausea, vomiting, diarrhea, headache, visual symptoms, chest pain, shortness of breath, abdominal pain, urinary symptoms right now. PAST MEDICAL HISTORY: Positive for coronary artery disease with coronary artery bypass grafting x 2, I believe; cardiomyopathy here ejection fraction was listed as about 12 or 13, but most recent echo he says at [facility] showed about 20%; congestive heart failure; atrial fibrillation; hyperlipidemia. He has AICD in place. He has had colon cancer with chemotherapy in the past; has had cholecystectomy and renal insufficiency. SOCIAL HISTORY: Negative for smoking, alcohol, illicit drug use. He lives with family. ALLERGIES: No known drug allergies. CURRENT MEDICATIONS: Reviewed. The patient received one dose of Rocephin, 1 dose of azithromycin. REVIEW OF SYSTEMS: As per HPI, all other systems reviewed are negative. PHYSICAL EXAMINATION: GENERAL: Alert, oriented gentleman, not in distress. VITAL SIGNS: Stable, afebrile. HEENT: NAD. NECK: Supple, no JVP, no lymphadenopathy. LUNGS: Clear. HEART: S1, S2 regular. ABDOMEN: Benign. EXTREMITIES: No edema, no cyanosis. SKIN: Unremarkable. NEUROLOGIC: The patient is neurologically alert, awake and appropriate. No focal neurologic deficit. LABORATORY DATA: White count is 17.1, platelets are normal. BUN and creatinine are 46 and 2.2. His BNP was 3914. Lactic acid 4.0. Influenza screen is negative. His last MRSA screen in March was negative. Before then, he was positive in September. Chest x-ray showed bilateral pulmonary vascular congestion. IMPRESSION: 1. Congestive heart failure/pulmonary edema. The patient has responded to Lasix. 2. Leukocytosis, most likely reactive. Also, the patient may have a mild MDS. The patient has lost all the numbers. He has never had normal WBC count at least a couple of years. 3. Lactic acidosis, probably cardiac in origin. 4. Hypoxemia. 5. Pulmonary vascular congestion/truly atypical infection cannot be ruled out, although appears less likely. 6. Cardiomyopathy. 7. Renal insufficiency. RECOMMENDATION: We would continue the cardiac management, diuresis, amiodarone, etc. Oxygen support. We will continue Rocephin for the time being, soon to be able to discontinue. Supportive care. Discussion with the patient and the family done at the bedside. Thank you very much, Dr. Norris, for giving me the opportunity to participate in this patient's care. JOSÉ MIGUEL CONROY MD DR: LOBITO/chet JOB#: [id number] / [id number]
[2018-09-05] VITALS (22 sets, daily range): BP systolic 98–156; BP diastolic 69–92
[2018-09-05] MEDS: cefTRIAXone IV Push 1 GM VIAL. IVP SCH (03:47)
[2018-09-05 05:42] LABS: BASO % 0 % (0-3); EOS % 0 % (0-3); HEMATOCRIT 40.7 % (39.0-53.0); HEMOGLOBIN 13.2 g/dL (13.0-17.5); LYMPH # 0.8 x10^3/uL (1.0-4.8); LYMPH % 5 % (24-48); MEAN CORPUSCULAR HEMOGLOBIN 30 pg (25-35); MEAN CORPUSCULAR HGB CONC 33 g/dL (31-37); MEAN CORPUSCULAR VOLUME 92 fL (79-100); MONO % 6 % (0-9); NEUT # 15.7 x10^3uL (1.8-7.7); NEUT % 90 % (31-73); PLATELET COUNT 195 x10^3/uL (140-400); RED BLOOD COUNT 4.42 x10^6/uL (4.30-5.70); RED CELL DISTRIBUTION WIDTH 15.3 % (11.5-14.5); WHITE BLOOD COUNT 17.5 x10^3/uL (4.0-11.0)
[2018-09-05] MEDS: LEVOTHYROXINE 50 MCG TABLET PO SCH (05:44)
[2018-09-05 06:07] LABS: ALBUMIN 3.3 g/dL (3.4-5.0); ALBUMIN/GLOBULIN RATIO 0.8 (1.0-1.7); CREATININE 2.4 mg/dL (0.7-1.3); GFR 26.1; POTASSIUM 4.6 mmol/L (3.5-5.1); TOTAL BILIRUBIN 0.7 mg/dL (0.2-1.0); TOTAL PROTEIN 7.4 g/dL (6.4-8.2)
[2018-09-05 06:17] LABS: CHOLESTEROL/HDL RATIO 4.3
[2018-09-05 07:33] LABS: % BANDS 4 % (0-9); % LYMPHS 5 % (24-48); % MONOS 2 % (0-10); % SEGS 89 % (35-66); PLT ESTIMATE ADEQUATE (ADEQUATE)
--- NOTE | 2018-09-05 07:56 | PDOC ---
Infectious Disease Note Subjective Subjective pt is feeing better, off and on had to use BiPAP ROS ROS no n/v/d/fever Vital Sign Vital Signs Vital Signs Date Time Temp Pulse Resp B/P (MAP) Pulse Ox O2 Delivery O2 Flow Rate FiO2 09/05/18 07:25 Nasal Cannula 4.0 09/05/18 07:00 106 16 132/73 (92) 93 09/05/18 04:00 97.7 97.7 Physical Exam PHYSICAL EXAM GENERAL: Alert, oriented gentleman, not in distress. VITAL SIGNS: Stable, afebrile. HEENT: NAD. NECK: Supple, no JVP, no lymphadenopathy. LUNGS: Clear. HEART: S1, S2 regular. ABDOMEN: Benign. EXTREMITIES: No edema, no cyanosis. SKIN: Unremarkable. NEUROLOGIC: The patient is neurologically alert, awake and appropriate. No focal neurologic deficit. Labs Lab Laboratory Tests Test 09/04/18 08:01 09/04/18 09:50 09/04/18 11:30 09/04/18 16:54 O2 Saturation 96 % (92-99) Arterial Blood pH 7.36 (7.35-7.45) Arterial Blood pCO2 at Patient Temp 41 mmHg (35-46) Arterial Blood pO2 at Patient Temp 92 mmHg (65-108) Arterial Blood HCO3 22 mmol/L (21-28) Arterial Blood Base Excess -3 mmol/L (-3-3) FiO2 Bipap 80% Troponin I Quantitative 0.050 ng/mL (0.000-0.055) Glucose (Fingerstick) 201 mg/dL (70-99) 245 mg/dL (70-99) Test 09/05/18 04:00 White Blood Count 17.5 x10^3/uL (4.0-11.0) Red Blood Count 4.42 x10^6/uL (4.30-5.70) Hemoglobin 13.2 g/dL (13.0-17.5) Hematocrit 40.7 % (39.0-53.0) Mean Corpuscular Volume 92 fL (79-100) Mean Corpuscular Hemoglobin 30 pg (25-35) Mean Corpuscular Hemoglobin Concent 33 g/dL (31-37) Red Cell Distribution Width 15.3 % (11.5-14.5) Platelet Count 195 x10^3/uL (140-400) Neutrophils (%) (Auto) 90 % (31-73) Lymphocytes (%) (Auto) 5 % (24-48) Monocytes (%) (Auto) 6 % (0-9) Eosinophils (%) (Auto) 0 % (0-3) Basophils (%) (Auto) 0 % (0-3) Neutrophils # (Auto) 15.7 x10^3uL (1.8-7.7) Lymphocytes # (Auto) 0.8 x10^3/uL (1.0-4.8) Monocytes # (Auto) 1.0 x10^3/uL (0.0-1.1) Eosinophils # (Auto) 0.0 x10^3/uL (0.0-0.7) Basophils # (Auto) 0.0 x10^3/uL (0.0-0.2) Segmented Neutrophils % 89 % (35-66) Band Neutrophils % 4 % (0-9) Lymphocytes % 5 % (24-48) Monocytes % 2 % (0-10) Platelet Estimate Adequate (ADEQUATE) Sodium Level 138 mmol/L (136-145) Potassium Level 4.6 mmol/L (3.5-5.1) Chloride Level 101 mmol/L (98-107) Carbon Dioxide Level 24 mmol/L (21-32) Anion Gap 13 (6-14) Blood Urea Nitrogen 59 mg/dL (8-26) Creatinine 2.4 mg/dL (0.7-1.3) Estimated GFR (Cockcroft-Gault) 26.1 BUN/Creatinine Ratio 25 (6-20) Glucose Level 213 mg/dL (70-99) Calcium Level 9.0 mg/dL (8.5-10.1) Magnesium Level 3.0 mg/dL (1.8-2.4) Total Bilirubin 0.7 mg/dL (0.2-1.0) Aspartate Amino Transf (AST/SGOT) 13 U/L (15-37) Alanine Aminotransferase (ALT/SGPT) 11 U/L (16-63) Alkaline Phosphatase 74 U/L (46-116) Total Protein 7.4 g/dL (6.4-8.2) Albumin 3.3 g/dL (3.4-5.0) Albumin/Globulin Ratio 0.8 (1.0-1.7) Triglycerides Level 140 mg/dL (0-150) Cholesterol Level 143 mg/dL (0-200) LDL Cholesterol, Calculated 82 mg/dL (0-100) VLDL Cholesterol, Calculated 28 mg/dL (0-40) Non-HDL Cholesterol Calculated 110 mg/dL (0-129) HDL Cholesterol 33 mg/dL (40-60) Cholesterol/HDL Ratio 4.3 Micro Microbiology 09/04/18 Blood Culture - Preliminary, Resulted NO GROWTH AFTER 1 DAY Objective Assessment Lactic acidosis CHF/Pulmonary edema Leukocytosis likely reactive Pulmonary infiltrate Hypoxemia Cardiomyopathy Renal insufficiency Plan Plan of Care lasix/bumex culture blood and sputum rocephiblake subramanianithro x 1 d/w family JOSÉ MIGUEL CONROY MD Sep 05, 2018 07:56
[2018-09-05] MEDS: MAGNESIUM OXIDE 400 MG TABLET PO SCH (08:02)
[2018-09-05] MEDS: AMIODARONE HCL 200 MG TABLET. PO SCH ×2 (08:02→20:59)
[2018-09-05] MEDS: APIXABAN 2.5 MG TABLET. PO SCH ×2 (08:03→20:59)
[2018-09-05] MEDS: MULTIVITAMIN with MINERAL TABLET. PO SCH (08:03)
[2018-09-05] MEDS: CYANOCOBALAMIN (VITAMIN B-12) 1,000 MCG TABLET. PO SCH (08:03)
[2018-09-05] MEDS: METOPROLOL TART IMMED RELEASE 25 MG TABLET. PO SCH ×3 (08:03→20:59)
[2018-09-05] MEDS: ASPIRIN CHEWABLE 81 MG TABLET. PO SCH (08:03)
[2018-09-05] MEDS: OMEGA-3 FATTY ACIDS/FISH OIL 1,000 MG CAPSULE. PO SCH (08:04)
[2018-09-05] MEDS: INSULIN LISPRO 300 UNITS/3 ML INSULN.PEN. SQ SCH ×3 (08:05→16:54)
[2018-09-05] MEDS: IPRATRPIUM/ALBUTEROL 0.5/2.5MG 3 ML NEBU. NEB SCH ×4 (09:09→19:08)
--- NOTE | 2018-09-05 10:21 | PDOC ---
IM PROGRESS NOTES- Subjective Subjective Dyspnea is improving. Denies any chest pains or palpitations ,has some cough. Other systems reviewed and are negative. Patient states that he has been taking amiodarone 200 mg daily at home. Objective Vitals Vital Signs Date Time Temp Pulse Resp B/P (MAP) Pulse Ox O2 Delivery O2 Flow Rate FiO2 09/05/18 09:11 86 Nasal Cannula 4.0 09/05/18 09:00 104 18 120/70 (87) 09/05/18 08:00 98.2 98.2 Input & Output Intake and Output 09/05/18 06:59 Intake Total 770 ml Output Total 920 ml Balance -150 ml Intake Oral 770 ml Output Urine Total 920 ml Physical Exam Physical Exam General appearance - alert,ill appearing, and in mild distress and oriented to person, place, and time. He used BiPAP last night and is on oxygen at this time. Mental Status - alert, oriented to person, place, and time, affect appropriate to mood Head - normal Chest -decreased breath sounds at bases. Heart - S1 and S2 normal Abdomen - soft, nontender, nondistended, no masses or organomegaly Neurological - alert and oriented Musculoskeletal - no muscular tenderness noted Extremities - no pedal edema Skin - warm and dry Labs Laboratory Tests Test 09/04/18 02:30 09/04/18 02:35 09/04/18 04:21 09/04/18 06:45 White Blood Count 17.1 x10^3/uL (4.0-11.0) Red Blood Count 5.35 x10^6/uL (4.30-5.70) Hemoglobin 16.5 g/dL (13.0-17.5) Hematocrit 49.8 % (39.0-53.0) Mean Corpuscular Volume 93 fL (79-100) Mean Corpuscular Hemoglobin 31 pg (25-35) Mean Corpuscular Hemoglobin Concent 33 g/dL (31-37) Red Cell Distribution Width 15.7 % (11.5-14.5) Platelet Count 272 x10^3/uL (140-400) Neutrophils (%) (Auto) 72 % (31-73) Lymphocytes (%) (Auto) 20 % (24-48) Monocytes (%) (Auto) 6 % (0-9) Eosinophils (%) (Auto) 1 % (0-3) Basophils (%) (Auto) 1 % (0-3) Neutrophils # (Auto) 12.3 x10^3uL (1.8-7.7) Lymphocytes # (Auto) 3.4 x10^3/uL (1.0-4.8) Monocytes # (Auto) 1.0 x10^3/uL (0.0-1.1) Eosinophils # (Auto) 0.2 x10^3/uL (0.0-0.7) Basophils # (Auto) 0.2 x10^3/uL (0.0-0.2) Sodium Level 139 mmol/L (136-145) Potassium Level 4.3 mmol/L (3.5-5.1) Chloride Level 100 mmol/L (98-107) Carbon Dioxide Level 23 mmol/L (21-32) Anion Gap 16 (6-14) Blood Urea Nitrogen 46 mg/dL (8-26) Creatinine 2.2 mg/dL (0.7-1.3) Estimated GFR (Cockcroft-Gault) 28.9 BUN/Creatinine Ratio 21 (6-20) Glucose Level 364 mg/dL (70-99) Lactic Acid Level 4.0 mmol/L (0.4-2.0) 2.0 mmol/L (0.4-2.0) Calcium Level 8.6 mg/dL (8.5-10.1) Magnesium Level 2.5 mg/dL (1.8-2.4) Total Bilirubin 0.6 mg/dL (0.2-1.0) Aspartate Amino Transf (AST/SGOT) 18 U/L (15-37) Alanine Aminotransferase (ALT/SGPT) 16 U/L (16-63) Alkaline Phosphatase 107 U/L (46-116) Troponin I Quantitative 0.033 ng/mL (0.000-0.055) 0.048 ng/mL (0.000-0.055) AX-Baw-S-Type Natriuretic Peptide 3914 pg/mL (0-449) Total Protein 7.9 g/dL (6.4-8.2) Albumin 3.5 g/dL (3.4-5.0) Albumin/Globulin Ratio 0.8 (1.0-1.7) Procalcitonin < 0.10 ng/mL (0.00-0.10) O2 Saturation 92 % (92-99) Arterial Blood pH 7.28 (7.35-7.45) Arterial Blood pCO2 at Patient Temp 48 mmHg (35-46) Arterial Blood pO2 at Patient Temp 75 mmHg (65-108) Arterial Blood HCO3 22 mmol/L (21-28) Arterial Blood Base Excess -5 mmol/L (-3-3) FiO2 100 Influenza Type A Antigen Negative (NEGATIVE) Influenza Type B Antigen Negative (NEGATIVE) Test 09/04/18 08:01 09/04/18 09:50 09/04/18 11:30 09/04/18 16:54 O2 Saturation 96 % (92-99) Arterial Blood pH 7.36 (7.35-7.45) Arterial Blood pCO2 at Patient Temp 41 mmHg (35-46) Arterial Blood pO2 at Patient Temp 92 mmHg (65-108) Arterial Blood HCO3 22 mmol/L (21-28) Arterial Blood Base Excess -3 mmol/L (-3-3) FiO2 Bipap 80% Troponin I Quantitative 0.050 ng/mL (0.000-0.055) Glucose (Fingerstick) 201 mg/dL (70-99) 245 mg/dL (70-99) Test 09/05/18 04:00 White Blood Count 17.5 x10^3/uL (4.0-11.0) Red Blood Count 4.42 x10^6/uL (4.30-5.70) Hemoglobin 13.2 g/dL (13.0-17.5) Hematocrit 40.7 % (39.0-53.0) Mean Corpuscular Volume 92 fL (79-100) Mean Corpuscular Hemoglobin 30 pg (25-35) Mean Corpuscular Hemoglobin Concent 33 g/dL (31-37) Red Cell Distribution Width 15.3 % (11.5-14.5) Platelet Count 195 x10^3/uL (140-400) Neutrophils (%) (Auto) 90 % (31-73) Lymphocytes (%) (Auto) 5 % (24-48) Monocytes (%) (Auto) 6 % (0-9) Eosinophils (%) (Auto) 0 % (0-3) Basophils (%) (Auto) 0 % (0-3) Neutrophils # (Auto) 15.7 x10^3uL (1.8-7.7) Lymphocytes # (Auto) 0.8 x10^3/uL (1.0-4.8) Monocytes # (Auto) 1.0 x10^3/uL (0.0-1.1) Eosinophils # (Auto) 0.0 x10^3/uL (0.0-0.7) Basophils # (Auto) 0.0 x10^3/uL (0.0-0.2) Segmented Neutrophils % 89 % (35-66) Band Neutrophils % 4 % (0-9) Lymphocytes % 5 % (24-48) Monocytes % 2 % (0-10) Platelet Estimate Adequate (ADEQUATE) Sodium Level 138 mmol/L (136-145) Potassium Level 4.6 mmol/L (3.5-5.1) Chloride Level 101 mmol/L (98-107) Carbon Dioxide Level 24 mmol/L (21-32) Anion Gap 13 (6-14) Blood Urea Nitrogen 59 mg/dL (8-26) Creatinine 2.4 mg/dL (0.7-1.3) Estimated GFR (Cockcroft-Gault) 26.1 BUN/Creatinine Ratio 25 (6-20) Glucose Level 213 mg/dL (70-99) Calcium Level 9.0 mg/dL (8.5-10.1) Magnesium Level 3.0 mg/dL (1.8-2.4) Total Bilirubin 0.7 mg/dL (0.2-1.0) Aspartate Amino Transf (AST/SGOT) 13 U/L (15-37) Alanine Aminotransferase (ALT/SGPT) 11 U/L (16-63) Alkaline Phosphatase 74 U/L (46-116) Total Protein 7.4 g/dL (6.4-8.2) Albumin 3.3 g/dL (3.4-5.0) Albumin/Globulin Ratio 0.8 (1.0-1.7) Triglycerides Level 140 mg/dL (0-150) Cholesterol Level 143 mg/dL (0-200) LDL Cholesterol, Calculated 82 mg/dL (0-100) VLDL Cholesterol, Calculated 28 mg/dL (0-40) Non-HDL Cholesterol Calculated 110 mg/dL (0-129) HDL Cholesterol 33 mg/dL (40-60) Cholesterol/HDL Ratio 4.3 Laboratory Tests Test 09/04/18 11:30 09/04/18 16:54 09/05/18 04:00 Glucose (Fingerstick) 201 mg/dL (70-99) 245 mg/dL (70-99) White Blood Count 17.5 x10^3/uL (4.0-11.0) Red Blood Count 4.42 x10^6/uL (4.30-5.70) Hemoglobin 13.2 g/dL (13.0-17.5) Hematocrit 40.7 % (39.0-53.0) Mean Corpuscular Volume 92 fL (79-100) Mean Corpuscular Hemoglobin 30 pg (25-35) Mean Corpuscular Hemoglobin Concent 33 g/dL (31-37) Red Cell Distribution Width 15.3 % (11.5-14.5) Platelet Count 195 x10^3/uL (140-400) Neutrophils (%) (Auto) 90 % (31-73) Lymphocytes (%) (Auto) 5 % (24-48) Monocytes (%) (Auto) 6 % (0-9) Eosinophils (%) (Auto) 0 % (0-3) Basophils (%) (Auto) 0 % (0-3) Neutrophils # (Auto) 15.7 x10^3uL (1.8-7.7) Lymphocytes # (Auto) 0.8 x10^3/uL (1.0-4.8) Monocytes # (Auto) 1.0 x10^3/uL (0.0-1.1) Eosinophils # (Auto) 0.0 x10^3/uL (0.0-0.7) Basophils # (Auto) 0.0 x10^3/uL (0.0-0.2) Segmented Neutrophils % 89 % (35-66) Band Neutrophils % 4 % (0-9) Lymphocytes % 5 % (24-48) Monocytes % 2 % (0-10) Platelet Estimate Adequate (ADEQUATE) Sodium Level 138 mmol/L (136-145) Potassium Level 4.6 mmol/L (3.5-5.1) Chloride Level 101 mmol/L (98-107) Carbon Dioxide Level 24 mmol/L (21-32) Anion Gap 13 (6-14) Blood Urea Nitrogen 59 mg/dL (8-26) Creatinine 2.4 mg/dL (0.7-1.3) Estimated GFR (Cockcroft-Gault) 26.1 BUN/Creatinine Ratio 25 (6-20) Glucose Level 213 mg/dL (70-99) Calcium Level 9.0 mg/dL (8.5-10.1) Magnesium Level 3.0 mg/dL (1.8-2.4) Total Bilirubin 0.7 mg/dL (0.2-1.0) Aspartate Amino Transf (AST/SGOT) 13 U/L (15-37) Alanine Aminotransferase (ALT/SGPT) 11 U/L (16-63) Alkaline Phosphatase 74 U/L (46-116) Total Protein 7.4 g/dL (6.4-8.2) Albumin 3.3 g/dL (3.4-5.0) Albumin/Globulin Ratio 0.8 (1.0-1.7) Triglycerides Level 140 mg/dL (0-150) Cholesterol Level 143 mg/dL (0-200) LDL Cholesterol, Calculated 82 mg/dL (0-100) VLDL Cholesterol, Calculated 28 mg/dL (0-40) Non-HDL Cholesterol Calculated 110 mg/dL (0-129) HDL Cholesterol 33 mg/dL (40-60) Cholesterol/HDL Ratio 4.3 Meds Current Medications Acetaminophen (Tylenol) 650 mg PRN Q6HRS PRN PO Headaches, Temp > 101.5F; Start 09/04/18 at 11:15 Amiodarone HCl (Cordarone) 200 mg BID PO Last administered on 09/05/18at 08:02; Start 09/04/18 at 21:00 Apixaban (Eliquis) 2.5 mg BID PO Last administered on 09/05/18at 08:03; Start at 13:00 Apixaban (Eliquis) 2.5 mg BIDWBK/ PO ; Start 09/04/18 at 12:00; Stop at 12:44; Status DC Aspirin (Children'S Aspirin) 81 mg DAILY PO Last administered on 09/05/18at 08: 03; Start 09/04/18 at 11:15 Atorvastatin Calcium (Lipitor) 80 mg QHS PO Last administered on 09/04/18at 20: 31; Start 09/04/18 at 21:00 Ceftriaxone Sodium (Rocephin) 1 gm Q24H IVP Last administered on 09/05/18at 03: 47; Start 09/05/18 at 04:00 Cyanocobalamin (Vitamin B-12) 1,000 mcg DAILY PO Last administered on at 08:03; Start 09/04/18 at 11:00 Dextrose (Dextrose 50%-Water Syringe) 12.5 gm PRN Q15MIN PRN IV SEE COMMENTS; Start 09/04/18 at 17:00 Fish Oil (Fish Oil) 2,000 mg DAILY PO Last administered on 09/05/18at 08:04; Start 09/04/18 at 11:00 Insulin Human Lispro (HumaLOG) 0-7 UNITS TIDWMEALS SQ Last administered on 09/05 08:05; Start 09/04/18 at 17:30 Lactobacillus Rhamnosus (Culturelle) 1 cap BID PO ; Start 09/05/18 at 21:00 Levothyroxine Sodium (Synthroid) 50 mcg DAILY06 PO Last administered on at 05:44; Start 09/04/18 at 11:00 Magnesium Hydroxide (Milk Of Magnesia) 2,400 mg PRN Q24HRS PRN PO CONSTIPATION ; Start 09/04/18 at 11:15 Magnesium Oxide (Magnesium Oxide) 400 mg DAILY PO Last administered on at 08:02; Start 09/04/18 at 11:00 Metoprolol Tartrate (Lopressor) 25 mg 1X ONCE PO Last administered on at 19:32; Start 09/04/18 at 19:30; Stop 09/04/18 at 19:31; Status DC Metoprolol Tartrate (Lopressor) 25 mg BID PO Last administered on 09/05/18at 08: 03; Start 09/04/18 at 21:00; Stop 09/05/18 at 08:54; Status DC Metoprolol Tartrate (Lopressor) 25 mg BID PO Last administered on 09/05/18at 09: 00; Start 09/05/18 at 09:00 Montelukast Sodium (Singulair) 10 mg QHS PO Last administered on 09/04/18at 20: 31; Start 09/04/18 at 21:00 Multivitamins (Thera M Plus) 1 tab DAILY PO Last administered on 3/22/19at 08: 03; Start 09/04/18 at 11:00 Nitroglycerin (Nitrostat) 0.4 mg PRN Q5MIN PRN SL CHEST PAIN; Start 09/04/18 at 11:15 Assessment Assessment 1. Acute on chronic hypercapnic and hypoxic respiratory failure. 2. Exacerbation of chronic obstructive pulmonary disease. 3. Possible pneumonia. 4. Lactic acidosis. 5. Atrial fibrillation with fast ventricular rate. 6. Lactic acidosis. 7. Hypotension. 8. 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 9. Moderate mitral regurgitation. 10. Coronary artery disease, status post CABG and stent placement. 11. Hyperlipidemia. 12. History of colon cancer. 13. History of automatic implantable cardioverter defibrillator. 14. History of valvulopathy, moderate mitral regurgitation, tricuspid regurgitation, mild aortic regurgitation with pulmonary valve regurgitation. 15. Moderate pulmonary hypertension. PLAN: Because of the low blood pressure, I will keep the diuretics on hold. I will keep amiodarone and other cardiac medications on hold for now until seen by the taxonomy teacher. Consult Dr. David Rangel because of the lactic acidosis and possible lung infection. The patient has been given IV Rocephin and Zithromax. I will keep him off the BiPAP and see if he can eat and keep him on oxygen by nasal cannula. Consult Dr. Trejo for pulmonary evaluation and management. Condition and treatment extensively discussed with the patient and the family in the Intensive Care Unit. Possible pneumonia- WBC count is higher at 17.5. Continue IV Rocephin. Chronic kidney disease- creatinine is 2.4 BUN is 59. Continue amiodarone. Acute on chronic systolic and diastolic congestive heart failure.- In the past patient has responded to IV dobutamine better than diuretics because of her worsening kidney function. Elevated blood sugar.- Start low-dose sliding scale insulin. Clinically improving slowly. May be able to go to CVC unit. New-onset atrial fibrillation. Pacemaker was adjusted yesterday. Device interrogation shows that he has been in sinus rhythm previously. Recheck labs in a.m. Acute on chronic hypercapnic and hypoxic G failure. Continue BiPAP at night and oxygen by nasal cannula during daytime. Clinically improving. Plan Plan For more details regarding further plans, please refer to the orders. TOM FOSTER MD Sep 05, 2018 10:21
--- NOTE | 2018-09-05 11:14 | PDOC ---
PULMONARY PROGRESS NOTES Subjective feels better but had soa at night/ used BIPAP Vitals Vital Signs Date Time Temp Pulse Resp B/P (MAP) Pulse Ox O2 Delivery O2 Flow Rate FiO2 09/05/18 10:00 104 18 110/78 (89) 91 Nasal Cannula 4.0 09/05/18 08:00 98.2 98.2 General: Alert, No acute distress Lungs: Other Cardiovascular: S1 Abdomen: Soft Extremities: Other Labs Laboratory Tests Test 09/04/18 02:30 09/04/18 02:35 09/04/18 04:21 09/04/18 06:45 White Blood Count 17.1 x10^3/uL (4.0-11.0) Red Blood Count 5.35 x10^6/uL (4.30-5.70) Hemoglobin 16.5 g/dL (13.0-17.5) Hematocrit 49.8 % (39.0-53.0) Mean Corpuscular Volume 93 fL (79-100) Mean Corpuscular Hemoglobin 31 pg (25-35) Mean Corpuscular Hemoglobin Concent 33 g/dL (31-37) Red Cell Distribution Width 15.7 % (11.5-14.5) Platelet Count 272 x10^3/uL (140-400) Neutrophils (%) (Auto) 72 % (31-73) Lymphocytes (%) (Auto) 20 % (24-48) Monocytes (%) (Auto) 6 % (0-9) Eosinophils (%) (Auto) 1 % (0-3) Basophils (%) (Auto) 1 % (0-3) Neutrophils # (Auto) 12.3 x10^3uL (1.8-7.7) Lymphocytes # (Auto) 3.4 x10^3/uL (1.0-4.8) Monocytes # (Auto) 1.0 x10^3/uL (0.0-1.1) Eosinophils # (Auto) 0.2 x10^3/uL (0.0-0.7) Basophils # (Auto) 0.2 x10^3/uL (0.0-0.2) Sodium Level 139 mmol/L (136-145) Potassium Level 4.3 mmol/L (3.5-5.1) Chloride Level 100 mmol/L (98-107) Carbon Dioxide Level 23 mmol/L (21-32) Anion Gap 16 (6-14) Blood Urea Nitrogen 46 mg/dL (8-26) Creatinine 2.2 mg/dL (0.7-1.3) Estimated GFR (Cockcroft-Gault) 28.9 BUN/Creatinine Ratio 21 (6-20) Glucose Level 364 mg/dL (70-99) Lactic Acid Level 4.0 mmol/L (0.4-2.0) 2.0 mmol/L (0.4-2.0) Calcium Level 8.6 mg/dL (8.5-10.1) Magnesium Level 2.5 mg/dL (1.8-2.4) Total Bilirubin 0.6 mg/dL (0.2-1.0) Aspartate Amino Transf (AST/SGOT) 18 U/L (15-37) Alanine Aminotransferase (ALT/SGPT) 16 U/L (16-63) Alkaline Phosphatase 107 U/L (46-116) Troponin I Quantitative 0.033 ng/mL (0.000-0.055) 0.048 ng/mL (0.000-0.055) AV-Xxv-O-Type Natriuretic Peptide 3914 pg/mL (0-449) Total Protein 7.9 g/dL (6.4-8.2) Albumin 3.5 g/dL (3.4-5.0) Albumin/Globulin Ratio 0.8 (1.0-1.7) Procalcitonin < 0.10 ng/mL (0.00-0.10) O2 Saturation 92 % (92-99) Arterial Blood pH 7.28 (7.35-7.45) Arterial Blood pCO2 at Patient Temp 48 mmHg (35-46) Arterial Blood pO2 at Patient Temp 75 mmHg (65-108) Arterial Blood HCO3 22 mmol/L (21-28) Arterial Blood Base Excess -5 mmol/L (-3-3) FiO2 100 Influenza Type A Antigen Negative (NEGATIVE) Influenza Type B Antigen Negative (NEGATIVE) Test 09/04/18 08:01 09/04/18 09:50 09/04/18 11:30 09/04/18 16:54 O2 Saturation 96 % (92-99) Arterial Blood pH 7.36 (7.35-7.45) Arterial Blood pCO2 at Patient Temp 41 mmHg (35-46) Arterial Blood pO2 at Patient Temp 92 mmHg (65-108) Arterial Blood HCO3 22 mmol/L (21-28) Arterial Blood Base Excess -3 mmol/L (-3-3) FiO2 Bipap 80% Troponin I Quantitative 0.050 ng/mL (0.000-0.055) Glucose (Fingerstick) 201 mg/dL (70-99) 245 mg/dL (70-99) Test 09/05/18 04:00 White Blood Count 17.5 x10^3/uL (4.0-11.0) Red Blood Count 4.42 x10^6/uL (4.30-5.70) Hemoglobin 13.2 g/dL (13.0-17.5) Hematocrit 40.7 % (39.0-53.0) Mean Corpuscular Volume 92 fL (79-100) Mean Corpuscular Hemoglobin 30 pg (25-35) Mean Corpuscular Hemoglobin Concent 33 g/dL (31-37) Red Cell Distribution Width 15.3 % (11.5-14.5) Platelet Count 195 x10^3/uL (140-400) Neutrophils (%) (Auto) 90 % (31-73) Lymphocytes (%) (Auto) 5 % (24-48) Monocytes (%) (Auto) 6 % (0-9) Eosinophils (%) (Auto) 0 % (0-3) Basophils (%) (Auto) 0 % (0-3) Neutrophils # (Auto) 15.7 x10^3uL (1.8-7.7) Lymphocytes # (Auto) 0.8 x10^3/uL (1.0-4.8) Monocytes # (Auto) 1.0 x10^3/uL (0.0-1.1) Eosinophils # (Auto) 0.0 x10^3/uL (0.0-0.7) Basophils # (Auto) 0.0 x10^3/uL (0.0-0.2) Segmented Neutrophils % 89 % (35-66) Band Neutrophils % 4 % (0-9) Lymphocytes % 5 % (24-48) Monocytes % 2 % (0-10) Platelet Estimate Adequate (ADEQUATE) Sodium Level 138 mmol/L (136-145) Potassium Level 4.6 mmol/L (3.5-5.1) Chloride Level 101 mmol/L (98-107) Carbon Dioxide Level 24 mmol/L (21-32) Anion Gap 13 (6-14) Blood Urea Nitrogen 59 mg/dL (8-26) Creatinine 2.4 mg/dL (0.7-1.3) Estimated GFR (Cockcroft-Gault) 26.1 BUN/Creatinine Ratio 25 (6-20) Glucose Level 213 mg/dL (70-99) Calcium Level 9.0 mg/dL (8.5-10.1) Magnesium Level 3.0 mg/dL (1.8-2.4) Total Bilirubin 0.7 mg/dL (0.2-1.0) Aspartate Amino Transf (AST/SGOT) 13 U/L (15-37) Alanine Aminotransferase (ALT/SGPT) 11 U/L (16-63) Alkaline Phosphatase 74 U/L (46-116) Total Protein 7.4 g/dL (6.4-8.2) Albumin 3.3 g/dL (3.4-5.0) Albumin/Globulin Ratio 0.8 (1.0-1.7) Triglycerides Level 140 mg/dL (0-150) Cholesterol Level 143 mg/dL (0-200) LDL Cholesterol, Calculated 82 mg/dL (0-100) VLDL Cholesterol, Calculated 28 mg/dL (0-40) Non-HDL Cholesterol Calculated 110 mg/dL (0-129) HDL Cholesterol 33 mg/dL (40-60) Cholesterol/HDL Ratio 4.3 Laboratory Tests Test 09/04/18 11:30 09/04/18 16:54 09/05/18 04:00 Glucose (Fingerstick) 201 mg/dL (70-99) 245 mg/dL (70-99) White Blood Count 17.5 x10^3/uL (4.0-11.0) Red Blood Count 4.42 x10^6/uL (4.30-5.70) Hemoglobin 13.2 g/dL (13.0-17.5) Hematocrit 40.7 % (39.0-53.0) Mean Corpuscular Volume 92 fL (79-100) Mean Corpuscular Hemoglobin 30 pg (25-35) Mean Corpuscular Hemoglobin Concent 33 g/dL (31-37) Red Cell Distribution Width 15.3 % (11.5-14.5) Platelet Count 195 x10^3/uL (140-400) Neutrophils (%) (Auto) 90 % (31-73) Lymphocytes (%) (Auto) 5 % (24-48) Monocytes (%) (Auto) 6 % (0-9) Eosinophils (%) (Auto) 0 % (0-3) Basophils (%) (Auto) 0 % (0-3) Neutrophils # (Auto) 15.7 x10^3uL (1.8-7.7) Lymphocytes # (Auto) 0.8 x10^3/uL (1.0-4.8) Monocytes # (Auto) 1.0 x10^3/uL (0.0-1.1) Eosinophils # (Auto) 0.0 x10^3/uL (0.0-0.7) Basophils # (Auto) 0.0 x10^3/uL (0.0-0.2) Segmented Neutrophils % 89 % (35-66) Band Neutrophils % 4 % (0-9) Lymphocytes % 5 % (24-48) Monocytes % 2 % (0-10) Platelet Estimate Adequate (ADEQUATE) Sodium Level 138 mmol/L (136-145) Potassium Level 4.6 mmol/L (3.5-5.1) Chloride Level 101 mmol/L (98-107) Carbon Dioxide Level 24 mmol/L (21-32) Anion Gap 13 (6-14) Blood Urea Nitrogen 59 mg/dL (8-26) Creatinine 2.4 mg/dL (0.7-1.3) Estimated GFR (Cockcroft-Gault) 26.1 BUN/Creatinine Ratio 25 (6-20) Glucose Level 213 mg/dL (70-99) Calcium Level 9.0 mg/dL (8.5-10.1) Magnesium Level 3.0 mg/dL (1.8-2.4) Total Bilirubin 0.7 mg/dL (0.2-1.0) Aspartate Amino Transf (AST/SGOT) 13 U/L (15-37) Alanine Aminotransferase (ALT/SGPT) 11 U/L (16-63) Alkaline Phosphatase 74 U/L (46-116) Total Protein 7.4 g/dL (6.4-8.2) Albumin 3.3 g/dL (3.4-5.0) Albumin/Globulin Ratio 0.8 (1.0-1.7) Triglycerides Level 140 mg/dL (0-150) Cholesterol Level 143 mg/dL (0-200) LDL Cholesterol, Calculated 82 mg/dL (0-100) VLDL Cholesterol, Calculated 28 mg/dL (0-40) Non-HDL Cholesterol Calculated 110 mg/dL (0-129) HDL Cholesterol 33 mg/dL (40-60) Cholesterol/HDL Ratio 4.3 Medications Active Scripts Medications Dose Route/Sig Max Daily Dose Days Date Category Dose Instructions Amiodarone Hcl 200 Mg Tablet 400 Mg PO Q8HRS 09/04/18 Reported Metoprolol Succinate ( Xl ) (Metoprolol Succinate) 25 Mg Tab.er.24h 2 Tab PO Q12HR 09/04/18 Reported Potassium Chloride 10 Meq Tab.sr.24h 20 Meq PO DAILY 04/07/18 Rx Bumetanide 2 Mg Tablet 4 Mg PO DAILY 04/03/18 Reported Eliquis (Apixaban) 2.5 Mg Tablet 2.5 Mg PO [id number] 04/03/18 Reported B-12 (Cyanocobalamin (Vitamin B-12)) 1,000 Mcg Tablet 1,000 Mcg PO DAILY 04/01/18 Reported Mag-Oxide (Magnesium Oxide) 400 Mg Tablet 400 Mg PO DAILY 04/01/18 Reported Aspirin 81 Mg Tab.chew 81 Mg PO DAILY 04/01/18 Reported Levothyroxine Sodium 50 Mcg Tablet 1 Tab PO DAILY 09/21/17 Reported Novolog Flexpen (Insulin Aspart) 100 Unit/1 Ml Insuln.pen 1 Unit SQ PER SLIDING SCALE 03/21/17 Rx SUbcutaneous injection Before meals three times daily: <150= no insulin 151-200= 2 units insulin 201-250 =3 units insulin 251-300 = 4 units insulin 301-350 = 6 units insulin 351-400 = 8 units insulin >401 call Milk Of Magnesia (Magnesium Hydroxide) 400 Mg/5 Ml Oral.susp 2,400 Mg PO PRN Q24HRS PRN 03/01/17 Rx Entresto 24 mg-26 mg Tablet (Sacubitril/Valsartan) 1 Each Tablet 1 Tab PO BID 02/25/17 Rx Thera-M Tablet (Multivits,Ca,Minerals/Iron/Fa) 1 Each Tablet 1 Tab PO DAILY 01/30/17 Rx Montelukast Sodium Tablet (Montelukast Sodium) 10 Mg Tablet 10 Mg PO QHS 01/30/17 Rx Tylenol (Acetaminophen) 325 Mg Tablet 650 Mg PO PRN Q6HRS PRN 01/30/17 Rx NITROGLYCERIN SubLingual (Nitroglycerin) 0.4 Mg Tab.subl 0.4 Mg SL PRN Q5MIN PRN 01/23/17 Reported [place]-3 Fish Oil 1,000 Mg Sfgl ([place]-3/Dha/Epa/Fish Oil) 1,000 Mg Capsule 2,000 Mg PO DAILY 10/31/15 Reported Crestor (Rosuvastatin Calcium) 20 Mg Tablet 20 Mg PO DAILY 05/29/14 Reported Comments cxr 09/05 mildl chf Impression . 1. Acute hypercapnic and hypoxic respiratory failure secondary to acute on chronic systolic heart failure. 2. Abnormal chest x-ray consistent with congestive heart failure. 3. Severe cardiomyopathy with an EF of 10-15%. 4. Atrial fibrillation triggering congestive heart failure. 5. No signs of any infection. 6. No significant history of tobacco use. 7. WILNER on CKD Plan . 1. Antibiotics can be discontinued. 2. Continue nasal cannula to keep saturation 92 to 94%. 3. Follow with chest x-ray still with mild CHF 4. Not on scheduled diuresis due to increase renal insufficiency. Consider Dobutamine 5. Continue Eliquis for atrial fibrillation. 6. Follow Cardiology recommendation. 7. Follow Infectious Disease recommendations. 8. P.r.n. BiPAP. 9. Discussed with the patient's family and BABATUNDE ELENA MD Sep 05, 2018 11:14
[2018-09-05] MEDS: MILRINONE 20MG/100ML PREMIX 100 ML IV PRN (13:34)
--- NOTE | 2018-09-05 14:00 | NUR ---
pt started on milrinone iv 0.125 mcg/kg/min. pt lying in bed and requesting bipap. pt stated "it just seems like i am a little sob" girlfriend and daughter at bedside
--- NOTE | 2018-09-05 14:24 | NUR ---
SS following for discharge planning. SS reviewed pt chart. Pt is from home and is currently on requiring oxygen. No discharge needs noted at this time. SS will continue to follow for pending discharge needs.
--- NOTE | 2018-09-05 14:41 | RAD ---
Indication:SOA TECHNIQUE:Portable AP chest X-ray COMPARISON:09/05/2018 FINDINGS: Heart is mildly enlarged in size. Diffuse bilateral interstitial opacities are seen. Patchy opacity in the left upper lobe with air bronchograms. No pneumothorax or large. Effusion. Visualized bony thorax is within normal limits. IMPRESSION: Findings of interstitial pulmonary edema or atypical/viral infection. No significant change compared to previous exam. Electronically signed by: Hood Norris DO (09/05/2018 2:38 PM) [facility]
--- NOTE | 2018-09-05 15:29 | PDOC ---
CARDIO Progress Notes Date and Time Date of Service 09/05/18 Time of Evaluation 1315 Subjective Subjective: No Chest Pain, No Palpitations, Other (more SOA today) Vitals Vitals Vital Signs Date Time Temp Pulse Resp B/P (MAP) Pulse Ox O2 Delivery O2 Flow Rate FiO2 09/05/18 13:00 98.1 108 18 113/75 (88) 91 Nasal Cannula 5.0 98.1 Weight Weight [ ] Input and Output Intake and Output Intake and Output 09/05/18 06:59 Intake Total 770 ml Output Total 920 ml Balance -150 ml Intake Oral 770 ml Output Urine Total 920 ml Laboratory Labs Laboratory Tests Test 09/04/18 16:54 09/05/18 04:00 09/05/18 12:00 Glucose (Fingerstick) 245 mg/dL (70-99) 184 mg/dL (70-99) White Blood Count 17.5 x10^3/uL (4.0-11.0) Red Blood Count 4.42 x10^6/uL (4.30-5.70) Hemoglobin 13.2 g/dL (13.0-17.5) Hematocrit 40.7 % (39.0-53.0) Mean Corpuscular Volume 92 fL (79-100) Mean Corpuscular Hemoglobin 30 pg (25-35) Mean Corpuscular Hemoglobin Concent 33 g/dL (31-37) Red Cell Distribution Width 15.3 % (11.5-14.5) Platelet Count 195 x10^3/uL (140-400) Neutrophils (%) (Auto) 90 % (31-73) Lymphocytes (%) (Auto) 5 % (24-48) Monocytes (%) (Auto) 6 % (0-9) Eosinophils (%) (Auto) 0 % (0-3) Basophils (%) (Auto) 0 % (0-3) Neutrophils # (Auto) 15.7 x10^3uL (1.8-7.7) Lymphocytes # (Auto) 0.8 x10^3/uL (1.0-4.8) Monocytes # (Auto) 1.0 x10^3/uL (0.0-1.1) Eosinophils # (Auto) 0.0 x10^3/uL (0.0-0.7) Basophils # (Auto) 0.0 x10^3/uL (0.0-0.2) Segmented Neutrophils % 89 % (35-66) Band Neutrophils % 4 % (0-9) Lymphocytes % 5 % (24-48) Monocytes % 2 % (0-10) Platelet Estimate Adequate (ADEQUATE) Sodium Level 138 mmol/L (136-145) Potassium Level 4.6 mmol/L (3.5-5.1) Chloride Level 101 mmol/L (98-107) Carbon Dioxide Level 24 mmol/L (21-32) Anion Gap 13 (6-14) Blood Urea Nitrogen 59 mg/dL (8-26) Creatinine 2.4 mg/dL (0.7-1.3) Estimated GFR (Cockcroft-Gault) 26.1 BUN/Creatinine Ratio 25 (6-20) Glucose Level 213 mg/dL (70-99) Calcium Level 9.0 mg/dL (8.5-10.1) Magnesium Level 3.0 mg/dL (1.8-2.4) Total Bilirubin 0.7 mg/dL (0.2-1.0) Aspartate Amino Transf (AST/SGOT) 13 U/L (15-37) Alanine Aminotransferase (ALT/SGPT) 11 U/L (16-63) Alkaline Phosphatase 74 U/L (46-116) Total Protein 7.4 g/dL (6.4-8.2) Albumin 3.3 g/dL (3.4-5.0) Albumin/Globulin Ratio 0.8 (1.0-1.7) Triglycerides Level 140 mg/dL (0-150) Cholesterol Level 143 mg/dL (0-200) LDL Cholesterol, Calculated 82 mg/dL (0-100) VLDL Cholesterol, Calculated 28 mg/dL (0-40) Non-HDL Cholesterol Calculated 110 mg/dL (0-129) HDL Cholesterol 33 mg/dL (40-60) Cholesterol/HDL Ratio 4.3 Microbiology Micro Microbiology 09/04/18 Blood Culture - Preliminary, Resulted NO GROWTH AFTER 1 DAY Physical Exam HEENT: Neck Supple W Full Motion Chest: Symmetric LUNGS: Other (bibasilar crackles) Heart: S1S2, other (v-paced) Abdomen: Soft N/T Neurology: alert, oriented, follow commands Assessment Assessment 1. Acute hypoxic, hypercapnic respiratory failure; secondary to a/c HF. required BiPAP overnight 2. Acute on chronic systolic HF; CXR with ongoing pul edema. BP low- normotensive 3. ICM s/p AICD ([place]); LVEF 15-20% 3. PAFIB; v-paced. on Amiodarone 4. CAD s/p CABG x 2 with most recent is 2002. Cath in 2016 with occluded SVG to RCA, patent SVG to OM branch, and patent DICKERSON to LAD as noted above. CP free. Stress test performed yesterday with Dr. Barraza. 5. Hypertension; BP marginal 6. Hyperlipidemia; statin 7. Diabetes, II; as per PCP 8. WILNER on CKD; Cr up to 2.4 today 9. Leukocytosis, lactic acidosis. possibly reactive Recommendation Given severe CMP, marginal BP/output, and rising Cr, will add inotropic support. D/w primary cardiology Bumex held with elevated Cr. Consider renal consult. will defer to PCP Continue Amiodarone Low-dose BB as BP allows Eliquis for stroke prophylaxis Hold Enstresto for now Secondary prevention measures Supportive care Obtain records from Dr. Barraza's office MPI 08/2018 1. LV cavity dilatation with no transient ischemia 2. Scar over the inferior wall 3. Mixed perfusion defect, mainly scar with some ischemia over the septum and the anterior wall. 4. Atrial fibrillation with RVR during stress part of the test, ranging from 4 to [address] segment depression suggestive of ischemia 6. Intraventricular conduction defect seen with a robyn QRS with faster rate Echo 08/2018 1. Significant global hypokinesis with an EF of 15-20% 2. Grade 2 diastolic dysfunction 3. Moderate mitral regurgitation ANNY MOSCOSO APRN Sep 05, 2018 15:29
[2018-09-05] MEDS: ATORVASTATIN CALCIUM 40 MG TABLET. PO SCH (20:58)
[2018-09-05] MEDS: MONTELUKAST SODIUM 10 MG TABLET. PO SCH (21:00)
[2018-09-05] MEDS: LACTOBACILLUS RHAMNOSUS GG 1 CAPSULE. PO SCH (21:00)
[2018-09-06] VITALS (11 sets, daily range): BP systolic 106–165; BP diastolic 66–98
[2018-09-06] MEDS: cefTRIAXone IV Push 1 GM VIAL. IVP SCH (05:32)
[2018-09-06] MEDS: LEVOTHYROXINE 50 MCG TABLET PO SCH (05:32)
[2018-09-06 05:33] LABS: BASO % 0 % (0-3); EOS % 0 % (0-3); HEMOGLOBIN 12.6 g/dL (13.0-17.5); LYMPH % 6 % (24-48); MEAN CORPUSCULAR HEMOGLOBIN 31 pg (25-35); MEAN CORPUSCULAR HGB CONC 33 g/dL (31-37); MEAN CORPUSCULAR VOLUME 92 fL (79-100); MONO % 6 % (0-9); NEUT # 13.5 x10^3uL (1.8-7.7); NEUT % 87 % (31-73); PLATELET COUNT 165 x10^3/uL (140-400); RED BLOOD COUNT 4.12 x10^6/uL (4.30-5.70); RED CELL DISTRIBUTION WIDTH 15.4 % (11.5-14.5); WHITE BLOOD COUNT 15.4 x10^3/uL (4.0-11.0)
[2018-09-06 05:57] LABS: GFR 32.2; POTASSIUM 4.5 mmol/L (3.5-5.1)
[2018-09-06] MEDS: IPRATRPIUM/ALBUTEROL 0.5/2.5MG 3 ML NEBU. NEB SCH ×4 (07:39→19:42)
[2018-09-06] MEDS: ASPIRIN CHEWABLE 81 MG TABLET. PO SCH (08:25)
[2018-09-06] MEDS: CYANOCOBALAMIN (VITAMIN B-12) 1,000 MCG TABLET. PO SCH (08:26)
[2018-09-06] MEDS: APIXABAN 2.5 MG TABLET. PO SCH ×2 (08:26→20:44)
[2018-09-06] MEDS: MULTIVITAMIN with MINERAL TABLET. PO SCH (08:26)
[2018-09-06] MEDS: OMEGA-3 FATTY ACIDS/FISH OIL 1,000 MG CAPSULE. PO SCH (08:26)
[2018-09-06] MEDS: METOPROLOL TART IMMED RELEASE 25 MG TABLET. PO SCH ×2 (08:26→20:46)
[2018-09-06] MEDS: LACTOBACILLUS RHAMNOSUS GG 1 CAPSULE. PO SCH ×2 (08:27→20:44)
[2018-09-06] MEDS: AMIODARONE HCL 200 MG TABLET. PO SCH ×2 (08:27→20:45)
[2018-09-06] MEDS: MAGNESIUM OXIDE 400 MG TABLET PO SCH (08:27)
[2018-09-06] MEDS: INSULIN LISPRO 300 UNITS/3 ML INSULN.PEN. SQ SCH ×3 (08:32→17:03)
--- NOTE | 2018-09-06 10:46 | PDOC ---
PROGRESS NOTES Subjective Subjective Patient seen and examined He is feeling mildly better today. Objective Objective Vital Signs Date Time Temp Pulse Resp B/P (MAP) Pulse Ox O2 Delivery O2 Flow Rate FiO2 09/06/18 08:27 94 121/82 09/06/18 07:40 5.0 09/06/18 07:40 Bi-pap 09/06/18 07:39 95 09/06/18 07:00 98.1 20 98.1 Intake and Output 09/06/18 07:00 Intake Total 848.4 ml Output Total 950 ml Balance -101.6 ml Intake Oral 840 ml IV Total 8.4 ml Output Urine Total 950 ml # Bowel Movements 1 Physical Exam Abdomen: Normal bowel sounds Heart: Regular rate General: mild distress Lungs: Other (mildly decreased breath sounds) Assessment Assessment Problems Medical Problems: (1) Acute respiratory failure with hypoxemia Status: Acute (2) Khibo-ph-iynkocp kidney injury Status: Acute (3) CHF exacerbation Status: Acute (4) Leukocytosis Status: Acute Assessment 1. Acute hypoxic, hypercapnic respiratory failure; secondary to a/c HF. required BiPAP overnight. Feeling better today. 2. Acute on chronic systolic HF; improved on milrinone. We'll continue milrinone at this time. 3. ICM s/p AICD ([place]); LVEF 15-20% 3. PAFIB; v-paced. on Amiodarone 4. CAD s/p CABG x 2 with most recent is 2002. Cath in 2016 with occluded SVG to RCA, patent SVG to OM branch, and patent DICKERSON to LAD as noted above. CP free. Stress test performed yesterday with Dr. Barraza. 5. Hypertension; BP improved. 6. Hyperlipidemia; statin 7. Diabetes, II; as per PCP 8. WILNER on CKD Comment Review of Relevant I have reviewed the following items sima (where applicable) has been applied. Labs Laboratory Tests Test 09/04/18 11:30 09/04/18 16:54 09/05/18 04:00 09/05/18 12:00 Glucose (Fingerstick) 201 mg/dL (70-99) 245 mg/dL (70-99) 184 mg/dL (70-99) White Blood Count 17.5 x10^3/uL (4.0-11.0) Red Blood Count 4.42 x10^6/uL (4.30-5.70) Hemoglobin 13.2 g/dL (13.0-17.5) Hematocrit 40.7 % (39.0-53.0) Mean Corpuscular Volume 92 fL (79-100) Mean Corpuscular Hemoglobin 30 pg (25-35) Mean Corpuscular Hemoglobin Concent 33 g/dL (31-37) Red Cell Distribution Width 15.3 % (11.5-14.5) Platelet Count 195 x10^3/uL (140-400) Neutrophils (%) (Auto) 90 % (31-73) Lymphocytes (%) (Auto) 5 % (24-48) Monocytes (%) (Auto) 6 % (0-9) Eosinophils (%) (Auto) 0 % (0-3) Basophils (%) (Auto) 0 % (0-3) Neutrophils # (Auto) 15.7 x10^3uL (1.8-7.7) Lymphocytes # (Auto) 0.8 x10^3/uL (1.0-4.8) Monocytes # (Auto) 1.0 x10^3/uL (0.0-1.1) Eosinophils # (Auto) 0.0 x10^3/uL (0.0-0.7) Basophils # (Auto) 0.0 x10^3/uL (0.0-0.2) Segmented Neutrophils % 89 % (35-66) Band Neutrophils % 4 % (0-9) Lymphocytes % 5 % (24-48) Monocytes % 2 % (0-10) Platelet Estimate Adequate (ADEQUATE) Sodium Level 138 mmol/L (136-145) Potassium Level 4.6 mmol/L (3.5-5.1) Chloride Level 101 mmol/L (98-107) Carbon Dioxide Level 24 mmol/L (21-32) Anion Gap 13 (6-14) Blood Urea Nitrogen 59 mg/dL (8-26) Creatinine 2.4 mg/dL (0.7-1.3) Estimated GFR (Cockcroft-Gault) 26.1 BUN/Creatinine Ratio 25 (6-20) Glucose Level 213 mg/dL (70-99) Calcium Level 9.0 mg/dL (8.5-10.1) Magnesium Level 3.0 mg/dL (1.8-2.4) Total Bilirubin 0.7 mg/dL (0.2-1.0) Aspartate Amino Transf (AST/SGOT) 13 U/L (15-37) Alanine Aminotransferase (ALT/SGPT) 11 U/L (16-63) Alkaline Phosphatase 74 U/L (46-116) Total Protein 7.4 g/dL (6.4-8.2) Albumin 3.3 g/dL (3.4-5.0) Albumin/Globulin Ratio 0.8 (1.0-1.7) Triglycerides Level 140 mg/dL (0-150) Cholesterol Level 143 mg/dL (0-200) LDL Cholesterol, Calculated 82 mg/dL (0-100) VLDL Cholesterol, Calculated 28 mg/dL (0-40) Non-HDL Cholesterol Calculated 110 mg/dL (0-129) HDL Cholesterol 33 mg/dL (40-60) Cholesterol/HDL Ratio 4.3 Test 09/05/18 16:52 09/05/18 20:54 09/06/18 04:00 09/06/18 07:36 Glucose (Fingerstick) 154 mg/dL (70-99) 189 mg/dL (70-99) 170 mg/dL (70-99) White Blood Count 15.4 x10^3/uL (4.0-11.0) Red Blood Count 4.12 x10^6/uL (4.30-5.70) Hemoglobin 12.6 g/dL (13.0-17.5) Hematocrit 38.0 % (39.0-53.0) Mean Corpuscular Volume 92 fL (79-100) Mean Corpuscular Hemoglobin 31 pg (25-35) Mean Corpuscular Hemoglobin Concent 33 g/dL (31-37) Red Cell Distribution Width 15.4 % (11.5-14.5) Platelet Count 165 x10^3/uL (140-400) Neutrophils (%) (Auto) 87 % (31-73) Lymphocytes (%) (Auto) 6 % (24-48) Monocytes (%) (Auto) 6 % (0-9) Eosinophils (%) (Auto) 0 % (0-3) Basophils (%) (Auto) 0 % (0-3) Neutrophils # (Auto) 13.5 x10^3uL (1.8-7.7) Lymphocytes # (Auto) 1.0 x10^3/uL (1.0-4.8) Monocytes # (Auto) 1.0 x10^3/uL (0.0-1.1) Eosinophils # (Auto) 0.0 x10^3/uL (0.0-0.7) Basophils # (Auto) 0.0 x10^3/uL (0.0-0.2) Sodium Level 139 mmol/L (136-145) Potassium Level 4.5 mmol/L (3.5-5.1) Chloride Level 101 mmol/L (98-107) Carbon Dioxide Level 27 mmol/L (21-32) Anion Gap 11 (6-14) Blood Urea Nitrogen 61 mg/dL (8-26) Creatinine 2.0 mg/dL (0.7-1.3) Estimated GFR (Cockcroft-Gault) 32.2 Glucose Level 189 mg/dL (70-99) Calcium Level 9.0 mg/dL (8.5-10.1) Laboratory Tests Test 09/05/18 12:00 09/05/18 16:52 09/05/18 20:54 09/06/18 04:00 Glucose (Fingerstick) 184 mg/dL (70-99) 154 mg/dL (70-99) 189 mg/dL (70-99) White Blood Count 15.4 x10^3/uL (4.0-11.0) Red Blood Count 4.12 x10^6/uL (4.30-5.70) Hemoglobin 12.6 g/dL (13.0-17.5) Hematocrit 38.0 % (39.0-53.0) Mean Corpuscular Volume 92 fL (79-100) Mean Corpuscular Hemoglobin 31 pg (25-35) Mean Corpuscular Hemoglobin Concent 33 g/dL (31-37) Red Cell Distribution Width 15.4 % (11.5-14.5) Platelet Count 165 x10^3/uL (140-400) Neutrophils (%) (Auto) 87 % (31-73) Lymphocytes (%) (Auto) 6 % (24-48) Monocytes (%) (Auto) 6 % (0-9) Eosinophils (%) (Auto) 0 % (0-3) Basophils (%) (Auto) 0 % (0-3) Neutrophils # (Auto) 13.5 x10^3uL (1.8-7.7) Lymphocytes # (Auto) 1.0 x10^3/uL (1.0-4.8) Monocytes # (Auto) 1.0 x10^3/uL (0.0-1.1) Eosinophils # (Auto) 0.0 x10^3/uL (0.0-0.7) Basophils # (Auto) 0.0 x10^3/uL (0.0-0.2) Sodium Level 139 mmol/L (136-145) Potassium Level 4.5 mmol/L (3.5-5.1) Chloride Level 101 mmol/L (98-107) Carbon Dioxide Level 27 mmol/L (21-32) Anion Gap 11 (6-14) Blood Urea Nitrogen 61 mg/dL (8-26) Creatinine 2.0 mg/dL (0.7-1.3) Estimated GFR (Cockcroft-Gault) 32.2 Glucose Level 189 mg/dL (70-99) Calcium Level 9.0 mg/dL (8.5-10.1) Test 09/06/18 07:36 Glucose (Fingerstick) 170 mg/dL (70-99) Microbiology 09/04/18 Blood Culture - Preliminary, Resulted NO GROWTH AFTER 2 DAYS Medications Current Medications Ipratropium [place] (Atrovent) 0.5 mg 1X ONCE NEB Last administered on at 02:45; Start 09/04/18 at 02:45; Stop 09/04/18 at 02:46; Status DC Methylprednisolone Sodium Succinate (SOLU-Medrol 125MG VIAL) 125 mg 1X ONCE IV Last administered on 09/04/18at 03:07; Start 09/04/18 at 02:45; Stop 09/04/18 at 02:46; Status DC Albuterol Sulfate (Ventolin Neb Soln) 5 mg 1X ONCE CONT NEB Last administered on 09/04/18at 02:45; Start 09/04/18 at 02:45; Stop 09/04/18 at 02:46; Status DC Magnesium Sulfate 50 ml @ 25 mls/hr 1X ONCE IV Last administered on 09/04/18at 03:07; Start 09/04/18 at 02:45; Stop 09/04/18 at 04:44; Status DC Morphine Sulfate (Morphine Sulfate) 4 mg 1X ONCE IV Last administered on at 03:10; Start 09/04/18 at 03:00; Stop 09/04/18 at 03:01; Status DC Ondansetron HCl (Zofran) 4 mg 1X ONCE IV Last administered on 09/04/18at 03:12 ; Start 09/04/18 at 03:00; Stop 09/04/18 at 03:01; Status DC Furosemide (Lasix) 80 mg 1X ONCE IVP Last administered on 09/04/18at 03:09; Start 09/04/18 at 03:00; Stop 09/04/18 at 03:01; Status DC Furosemide (Lasix) 100 mg STK-MED ONCE .ROUTE ; Start 09/04/18 at 02:50; Stop at 02:52; Status DC Ceftriaxone Sodium (Rocephin) 1 gm 1X ONCE IVP Last administered on 09/04/18at 03:59; Start 09/04/18 at 03:45; Stop 09/04/18 at 03:46; Status DC Azithromycin 250 ml @ 250 mls/hr 1X ONCE IV Last administered on 09/04/18at 03 :59; Start 09/04/18 at 04:00; Stop 09/04/18 at 04:59; Status DC Insulin Human Regular (HumuLIN R VIAL) 6 unit 1X ONCE IV Last administered on 09/04/18at 04:03; Start 09/04/18 at 04:00; Stop 09/04/18 at 04:01; Status DC Morphine Sulfate (Morphine Sulfate) 4 mg PRN Q2HR PRN IV PAIN; Start 09/04/18 at 04:15; Stop 09/05/18 at 04:14; Status DC Acetaminophen (Tylenol) 650 mg PRN Q4HRS PRN PO FEVER; Start 09/04/18 at 04:15 ; Stop 09/05/18 at 04:14; Status DC Albuterol/ Ipratropium (Duoneb) 3 ml RTQID NEB Last administered on 09/06/18at 07:39; Start 09/04/18 at 08:00; Stop 09/11/18 at 07:59 Sodium Chloride 500 ml @ 500 mls/hr 1X ONCE IV Last administered on at 04:55; Start 09/04/18 at 05:00; Stop 09/04/18 at 05:59; Status DC Sodium Chloride 500 ml @ 500 mls/hr 1X ONCE IV Last administered on at 05:33; Start 09/04/18 at 05:30; Stop 09/04/18 at 06:29; Status DC Ceftriaxone Sodium (Rocephin) 1 gm Q24H IVP Last administered on 09/06/18 05: 32; Start 09/05/18 at 04:00 Acetaminophen (Tylenol) 650 mg PRN Q6HRS PRN PO Headaches, Temp > 101.5F; Start 09/04/18 at 11:15 Apixaban (Eliquis) 2.5 mg BIDWBKFT/JUANI PO ; Start 09/04/18 at 12:00; Stop at 12:44; Status DC Aspirin (Children'S Aspirin) 81 mg DAILY PO Last administered on 09/06/18 08: 25; Start 09/04/18 at 11:15 Cyanocobalamin (Vitamin B-12) 1,000 mcg DAILY PO Last administered on 08:26; Start 09/04/18 at 11:00 Magnesium Hydroxide (Milk Of Magnesia) 2,400 mg PRN Q24HRS PRN PO CONSTIPATION ; Start 09/04/18 at 11:15 Multivitamins (Thera M Plus) 1 tab DAILY PO Last administered on 09/06/18 08: 26; Start 09/04/18 at 11:00 Nitroglycerin (Nitrostat) 0.4 mg PRN Q5MIN PRN SL CHEST PAIN; Start 09/04/18 at 11:15 Levothyroxine Sodium (Synthroid) 50 mcg DAILY06 PO Last administered on 05:32; Start 09/04/18 at 11:00 Magnesium Oxide (Magnesium Oxide) 400 mg DAILY PO Last administered on 08:27; Start 09/04/18 at 11:00 Montelukast Sodium (Singulair) 10 mg QHS PO Last administered on 09/05/18 21: 00; Start 09/04/18 at 21:00 Fish Oil (Fish Oil) 2,000 mg DAILY PO Last administered on 09/06/18 08:26; Start 09/04/18 at 11:00 Atorvastatin Calcium (Lipitor) 80 mg QHS PO Last administered on 09/05/18 20: 58; Start 09/04/18 at 21:00 Apixaban (Eliquis) 2.5 mg BID PO Last administered on 09/06/18 08:26; Start at 13:00 Metoprolol Tartrate (Lopressor) 25 mg BID PO Last administered on 09/05/18 08: 03; Start 09/04/18 at 21:00; Stop 09/05/18 at 08:54; Status DC Amiodarone HCl (Cordarone) 200 mg BID PO Last administered on 09/06/18 08:27; Start 09/04/18 at 21:00 Insulin Human Lispro (HumaLOG) 0-7 UNITS TIDWMEALS SQ Last administered on 09/06 08:32; Start 09/04/18 at 17:30 Dextrose (Dextrose 50%-Water Syringe) 12.5 gm PRN Q15MIN PRN IV SEE COMMENTS; Start 09/04/18 at 17:00 Metoprolol Tartrate (Lopressor) 25 mg BID PO Last administered on 09/06/18 08: 26; Start 09/05/18 at 09:00 Metoprolol Tartrate (Lopressor) 25 mg 1X ONCE PO Last administered on 19:32; Start 09/04/18 at 19:30; Stop 09/04/18 at 19:31; Status DC Lactobacillus Rhamnosus (Culturelle) 1 cap BID PO Last administered on 08:27; Start 09/05/18 at 21:00 Milrinone Lactate/ Dextrose 100 ml @ 2.625 mls/ hr CONT PRN PRN IV PER PROTOCOL Last administered on 09/05/18 13:34; Start 09/05/18 at 13:15 Active Scripts Active Potassium Chloride 10 Meq Tab.sr.24h 20 Meq PO DAILY Novolog Flexpen (Insulin Aspart) 100 Unit/1 Ml Insuln.pen 1 Unit SQ PER SLIDING SCALE SUbcutaneous injection Before meals three times daily: <150= no insulin 151-200= 2 units insulin 201-250 =3 units insulin 251-300 = 4 units insulin 301-350 = 6 units insulin 351-400 = 8 units insulin >401 call MD Milk Of Magnesia (Magnesium Hydroxide) 400 Mg/5 Ml Oral.susp 2,400 Mg PO PRN Q24HRS PRN Entresto 24 mg-26 mg Tablet (Sacubitril/Valsartan) 1 Each Tablet 1 Tab PO BID Thera-M Tablet (Multivits,Ca,Minerals/Iron/Fa) 1 Each Tablet 1 Tab PO DAILY Montelukast Sodium Tablet (Montelukast Sodium) 10 Mg Tablet 10 Mg PO QHS Tylenol (Acetaminophen) 325 Mg Tablet 650 Mg PO PRN Q6HRS PRN Reported Amiodarone Hcl 200 Mg Tablet 400 Mg PO Q8HRS Metoprolol Succinate ( Xl ) (Metoprolol Succinate) 25 Mg Tab.er.24h 2 Tab PO Q12HR Bumetanide 2 Mg Tablet 4 Mg PO DAILY Eliquis (Apixaban) 2.5 Mg Tablet 2.5 Mg PO BIDWBKFT/JUANI B-12 (Cyanocobalamin (Vitamin B-12)) 1,000 Mcg Tablet 1,000 Mcg PO DAILY Mag-Oxide (Magnesium Oxide) 400 Mg Tablet 400 Mg PO DAILY Aspirin 81 Mg Tab.chew 81 Mg PO DAILY Levothyroxine Sodium 50 Mcg Tablet 1 Tab PO DAILY NITROGLYCERIN SubLingual (Nitroglycerin) 0.4 Mg Tab.subl 0.4 Mg SL PRN Q5MIN PRN [place]-3 Fish Oil 1,000 Mg Sfgl ([place]-3/Dha/Epa/Fish Oil) 1,000 Mg Capsule 2, 000 Mg PO DAILY Crestor (Rosuvastatin Calcium) 20 Mg Tablet 20 Mg PO DAILY Vitals/I & O Vital Sign - Last 24 Hours 09/05/18 09/05/18 09/05/18 09/05/18 11:00 12:00 12:07 12:23 Pulse 110 107 Resp 18 18 B/P (MAP) 104/78 (87) 98/73 (81) Pulse Ox 91 91 91 O2 Delivery Nasal Cannula Nasal Cannula Nasal Cannula Nasal Cannula O2 Flow Rate 4.0 4.0 4.0 5.0 09/05/18 09/05/18 09/05/18 09/05/18 13:00 14:00 15:00 16:00 Temp 98.1 98.1 Pulse 108 108 110 110 Resp 18 20 17 18 B/P (MAP) 113/75 (88) 118/78 (91) 123/78 (93) 123/76 (92) Pulse Ox 91 94 95 94 O2 Delivery Nasal Cannula BiPAP/CPAP BiPAP/CPAP BiPAP/CPAP O2 Flow Rate 5.0 09/05/18 09/05/18 09/05/18 09/05/18 16:32 17:00 17:20 17:40 Temp 98.0 98.0 Pulse 112 124 Resp 18 18 B/P (MAP) 124/87 (99) 148/92 (110) Pulse Ox 94 92 77 O2 Delivery BiPAP/CPAP Nasal Cannula Nasal Cannula Nasal Cannula O2 Flow Rate 5.0 5.0 6.0 09/05/18 09/05/18 09/05/18 09/05/18 19:09 19:15 20:00 20:59 Temp 98.0 98.0 Pulse 121 121 Resp 22 B/P (MAP) 156/89 (111) 156/89 Pulse Ox 91 90 O2 Delivery BiPAP/CPAP BiPAP/CPAP Bi-pap 09/05/18 09/05/18 09/05/18 09/05/18 20:59 21:15 22:50 23:00 Temp 98.7 98.7 Pulse 121 109 Resp 22 B/P (MAP) 156/89 129/91 (104) Pulse Ox 94 94 93 O2 Delivery BiPAP/CPAP BiPAP/CPAP BiPAP/CPAP 09/05/18 09/06/18 09/06/18 09/06/18 23:36 00:36 00:40 01:36 B/P (MAP) 138/69 (92) 115/80 (92) 133/85 (101) Pulse Ox 94 O2 Delivery BiPAP/CPAP 09/06/18 09/06/18 09/06/18 09/06/18 02:12 02:36 03:00 03:36 Pulse 111 Resp 21 B/P (MAP) 152/84 (106) 134/90 (105) 123/78 (93) Pulse Ox 95 95 O2 Delivery BiPAP/CPAP BiPAP/CPAP 09/06/18 09/06/18 09/06/18 09/06/18 05:30 05:36 07:00 07:39 Temp 98.1 98.1 Pulse 111 94 Resp 20 B/P (MAP) 156/87 (110) 121/82 (95) Pulse Ox 96 98 95 O2 Delivery BiPAP/CPAP BiPAP/CPAP BiPAP/CPAP 09/06/18 09/06/18 09/06/18 09/06/18 07:40 07:40 08:26 08:27 Pulse 94 94 B/P (MAP) 121/82 121/82 O2 Delivery Bi-pap O2 Flow Rate 6.0 5.0 Intake and Output 09/05/18 09/05/18 09/06/18 15:00 23:00 07:00 Intake Total 180 ml 68.4 ml 600 ml Output Total 215 ml 85 ml 650 ml Balance -35 ml -16.6 ml -50 ml RENEE ARMSTRONG MD Sep 06, 2018 10:46
--- NOTE | 2018-09-06 10:55 | PDOC ---
PULMONARY PROGRESS NOTES Subjective increase soa/ back on BIPAP Vitals Vital Signs Date Time Temp Pulse Resp B/P (MAP) Pulse Ox O2 Delivery O2 Flow Rate FiO2 09/06/18 08:27 94 121/82 09/06/18 07:40 5.0 09/06/18 07:40 Bi-pap 09/06/18 07:39 95 09/06/18 07:00 98.1 20 98.1 General: Alert, No acute distress Lungs: Other (decrease bs) Cardiovascular: S1 Abdomen: Soft Extremities: No Edema Labs Laboratory Tests Test 09/04/18 11:30 09/04/18 16:54 09/05/18 04:00 09/05/18 12:00 Glucose (Fingerstick) 201 mg/dL (70-99) 245 mg/dL (70-99) 184 mg/dL (70-99) White Blood Count 17.5 x10^3/uL (4.0-11.0) Red Blood Count 4.42 x10^6/uL (4.30-5.70) Hemoglobin 13.2 g/dL (13.0-17.5) Hematocrit 40.7 % (39.0-53.0) Mean Corpuscular Volume 92 fL (79-100) Mean Corpuscular Hemoglobin 30 pg (25-35) Mean Corpuscular Hemoglobin Concent 33 g/dL (31-37) Red Cell Distribution Width 15.3 % (11.5-14.5) Platelet Count 195 x10^3/uL (140-400) Neutrophils (%) (Auto) 90 % (31-73) Lymphocytes (%) (Auto) 5 % (24-48) Monocytes (%) (Auto) 6 % (0-9) Eosinophils (%) (Auto) 0 % (0-3) Basophils (%) (Auto) 0 % (0-3) Neutrophils # (Auto) 15.7 x10^3uL (1.8-7.7) Lymphocytes # (Auto) 0.8 x10^3/uL (1.0-4.8) Monocytes # (Auto) 1.0 x10^3/uL (0.0-1.1) Eosinophils # (Auto) 0.0 x10^3/uL (0.0-0.7) Basophils # (Auto) 0.0 x10^3/uL (0.0-0.2) Segmented Neutrophils % 89 % (35-66) Band Neutrophils % 4 % (0-9) Lymphocytes % 5 % (24-48) Monocytes % 2 % (0-10) Platelet Estimate Adequate (ADEQUATE) Sodium Level 138 mmol/L (136-145) Potassium Level 4.6 mmol/L (3.5-5.1) Chloride Level 101 mmol/L (98-107) Carbon Dioxide Level 24 mmol/L (21-32) Anion Gap 13 (6-14) Blood Urea Nitrogen 59 mg/dL (8-26) Creatinine 2.4 mg/dL (0.7-1.3) Estimated GFR (Cockcroft-Gault) 26.1 BUN/Creatinine Ratio 25 (6-20) Glucose Level 213 mg/dL (70-99) Calcium Level 9.0 mg/dL (8.5-10.1) Magnesium Level 3.0 mg/dL (1.8-2.4) Total Bilirubin 0.7 mg/dL (0.2-1.0) Aspartate Amino Transf (AST/SGOT) 13 U/L (15-37) Alanine Aminotransferase (ALT/SGPT) 11 U/L (16-63) Alkaline Phosphatase 74 U/L (46-116) Total Protein 7.4 g/dL (6.4-8.2) Albumin 3.3 g/dL (3.4-5.0) Albumin/Globulin Ratio 0.8 (1.0-1.7) Triglycerides Level 140 mg/dL (0-150) Cholesterol Level 143 mg/dL (0-200) LDL Cholesterol, Calculated 82 mg/dL (0-100) VLDL Cholesterol, Calculated 28 mg/dL (0-40) Non-HDL Cholesterol Calculated 110 mg/dL (0-129) HDL Cholesterol 33 mg/dL (40-60) Cholesterol/HDL Ratio 4.3 Test 09/05/18 16:52 09/05/18 20:54 09/06/18 04:00 09/06/18 07:36 Glucose (Fingerstick) 154 mg/dL (70-99) 189 mg/dL (70-99) 170 mg/dL (70-99) White Blood Count 15.4 x10^3/uL (4.0-11.0) Red Blood Count 4.12 x10^6/uL (4.30-5.70) Hemoglobin 12.6 g/dL (13.0-17.5) Hematocrit 38.0 % (39.0-53.0) Mean Corpuscular Volume 92 fL (79-100) Mean Corpuscular Hemoglobin 31 pg (25-35) Mean Corpuscular Hemoglobin Concent 33 g/dL (31-37) Red Cell Distribution Width 15.4 % (11.5-14.5) Platelet Count 165 x10^3/uL (140-400) Neutrophils (%) (Auto) 87 % (31-73) Lymphocytes (%) (Auto) 6 % (24-48) Monocytes (%) (Auto) 6 % (0-9) Eosinophils (%) (Auto) 0 % (0-3) Basophils (%) (Auto) 0 % (0-3) Neutrophils # (Auto) 13.5 x10^3uL (1.8-7.7) Lymphocytes # (Auto) 1.0 x10^3/uL (1.0-4.8) Monocytes # (Auto) 1.0 x10^3/uL (0.0-1.1) Eosinophils # (Auto) 0.0 x10^3/uL (0.0-0.7) Basophils # (Auto) 0.0 x10^3/uL (0.0-0.2) Sodium Level 139 mmol/L (136-145) Potassium Level 4.5 mmol/L (3.5-5.1) Chloride Level 101 mmol/L (98-107) Carbon Dioxide Level 27 mmol/L (21-32) Anion Gap 11 (6-14) Blood Urea Nitrogen 61 mg/dL (8-26) Creatinine 2.0 mg/dL (0.7-1.3) Estimated GFR (Cockcroft-Gault) 32.2 Glucose Level 189 mg/dL (70-99) Calcium Level 9.0 mg/dL (8.5-10.1) Laboratory Tests Test 09/05/18 12:00 09/05/18 16:52 09/05/18 20:54 09/06/18 04:00 Glucose (Fingerstick) 184 mg/dL (70-99) 154 mg/dL (70-99) 189 mg/dL (70-99) White Blood Count 15.4 x10^3/uL (4.0-11.0) Red Blood Count 4.12 x10^6/uL (4.30-5.70) Hemoglobin 12.6 g/dL (13.0-17.5) Hematocrit 38.0 % (39.0-53.0) Mean Corpuscular Volume 92 fL (79-100) Mean Corpuscular Hemoglobin 31 pg (25-35) Mean Corpuscular Hemoglobin Concent 33 g/dL (31-37) Red Cell Distribution Width 15.4 % (11.5-14.5) Platelet Count 165 x10^3/uL (140-400) Neutrophils (%) (Auto) 87 % (31-73) Lymphocytes (%) (Auto) 6 % (24-48) Monocytes (%) (Auto) 6 % (0-9) Eosinophils (%) (Auto) 0 % (0-3) Basophils (%) (Auto) 0 % (0-3) Neutrophils # (Auto) 13.5 x10^3uL (1.8-7.7) Lymphocytes # (Auto) 1.0 x10^3/uL (1.0-4.8) Monocytes # (Auto) 1.0 x10^3/uL (0.0-1.1) Eosinophils # (Auto) 0.0 x10^3/uL (0.0-0.7) Basophils # (Auto) 0.0 x10^3/uL (0.0-0.2) Sodium Level 139 mmol/L (136-145) Potassium Level 4.5 mmol/L (3.5-5.1) Chloride Level 101 mmol/L (98-107) Carbon Dioxide Level 27 mmol/L (21-32) Anion Gap 11 (6-14) Blood Urea Nitrogen 61 mg/dL (8-26) Creatinine 2.0 mg/dL (0.7-1.3) Estimated GFR (Cockcroft-Gault) 32.2 Glucose Level 189 mg/dL (70-99) Calcium Level 9.0 mg/dL (8.5-10.1) Test 09/06/18 07:36 Glucose (Fingerstick) 170 mg/dL (70-99) Medications Active Scripts Medications Dose Route/Sig Max Daily Dose Days Date Category Dose Instructions Amiodarone Hcl 200 Mg Tablet 400 Mg PO Q8HRS 09/04/18 Reported Metoprolol Succinate ( Xl ) (Metoprolol Succinate) 25 Mg Tab.er.24h 2 Tab PO Q12HR 09/04/18 Reported Potassium Chloride 10 Meq Tab.sr.24h 20 Meq PO DAILY 04/07/18 Rx Bumetanide 2 Mg Tablet 4 Mg PO DAILY 04/03/18 Reported Eliquis (Apixaban) 2.5 Mg Tablet 2.5 Mg PO [id number] 04/03/18 Reported B-12 (Cyanocobalamin (Vitamin B-12)) 1,000 Mcg Tablet 1,000 Mcg PO DAILY 04/01/18 Reported Mag-Oxide (Magnesium Oxide) 400 Mg Tablet 400 Mg PO DAILY 04/01/18 Reported Aspirin 81 Mg Tab.chew 81 Mg PO DAILY 04/01/18 Reported Levothyroxine Sodium 50 Mcg Tablet 1 Tab PO DAILY 09/21/17 Reported Novolog Flexpen (Insulin Aspart) 100 Unit/1 Ml Insuln.pen 1 Unit SQ PER SLIDING SCALE 03/21/17 Rx SUbcutaneous injection Before meals three times daily: <150= no insulin 151-200= 2 units insulin 201-250 =3 units insulin 251-300 = 4 units insulin 301-350 = 6 units insulin 351-400 = 8 units insulin >401 call Milk Of Magnesia (Magnesium Hydroxide) 400 Mg/5 Ml Oral.susp 2,400 Mg PO PRN Q24HRS PRN 03/01/17 Rx Entresto 24 mg-26 mg Tablet (Sacubitril/Valsartan) 1 Each Tablet 1 Tab PO BID 02/25/17 Rx Thera-M Tablet (Multivits,Ca,Minerals/Iron/Fa) 1 Each Tablet 1 Tab PO DAILY 01/30/17 Rx Montelukast Sodium Tablet (Montelukast Sodium) 10 Mg Tablet 10 Mg PO QHS 01/30/17 Rx Tylenol (Acetaminophen) 325 Mg Tablet 650 Mg PO PRN Q6HRS PRN 01/30/17 Rx NITROGLYCERIN SubLingual (Nitroglycerin) 0.4 Mg Tab.subl 0.4 Mg SL PRN Q5MIN PRN 01/23/17 Reported [place]-3 Fish Oil 1,000 Mg Sfgl ([place]-3/Dha/Epa/Fish Oil) 1,000 Mg Capsule 2,000 Mg PO DAILY 10/31/15 Reported Crestor (Rosuvastatin Calcium) 20 Mg Tablet 20 Mg PO DAILY 05/29/14 Reported Comments cxr 09/05 mildl chf Impression . 1. Acute hypercapnic and hypoxic respiratory failure secondary to acute on chronic systolic heart failure. 2. Abnormal chest x-ray consistent with congestive heart failure. 3. Severe cardiomyopathy with an EF of 10-15%. 4. Atrial fibrillation triggering congestive heart failure. 5. No signs of any infection. 6. No significant history of tobacco use. 7. WILNER on CKD Plan . 1. BIPAP for now/ keep saturation 92 to 94%. 2. Extra Diuresis / renal function and BP better today. 3. Follow with chest x-ray ,still with mild CHF 4. on Milrinone 5. Continue Eliquis for atrial fibrillation. 6. Follow Cardiology recommendation. 7. Follow Infectious Disease recommendations. can dc Abx 8 Discussed with the patient's family and RN BABATUNDE THEODORE MD Sep 06, 2018 10:55
[2018-09-06] MEDS ORDERED: FUROSEMIDE 40 MG/4 ML VIAL. IVP ONE (11:00)
--- NOTE | 2018-09-06 11:08 | PDOC ---
PROGRESS NOTES Subjective Subjective sob Objective Objective Vital Signs Date Time Temp Pulse Resp B/P (MAP) Pulse Ox O2 Delivery O2 Flow Rate FiO2 09/06/18 08:27 94 121/82 09/06/18 07:40 5.0 09/06/18 07:40 Bi-pap 09/06/18 07:39 95 09/06/18 07:00 98.1 20 98.1 Intake and Output 09/06/18 07:00 Intake Total 848.4 ml Output Total 950 ml Balance -101.6 ml Intake Oral 840 ml IV Total 8.4 ml Output Urine Total 950 ml # Bowel Movements 1 Physical Exam Physical Exam BIPAP Abdomen: Normal bowel sounds Heart: Regular rate Extremities: No edema, Normal pulses General: mild distress HEENT: Atraumatic, Mucous membr. moist/pink Lungs: Other (mildly decreased breath sounds) MUSCULOSKELETAL: Osteoarthritic changes both hands Neuro: Normal speech, Sensation intact Psych/Mental Status: Mental status NL, Mood NL Skin: No breakdown, No significant lesion Diagnosis Problem List Problems Medical Problems: (1) Acute respiratory failure with hypoxemia Status: Acute (2) Ileoh-do-cxmjqqp kidney injury Status: Acute (3) CHF exacerbation Status: Acute (4) Leukocytosis Status: Acute Assessment Assessment IMP: AC resp failure on BIPAP 1. Acute on chronic hypercapnic and hypoxic respiratory failure. 2. Exacerbation of chronic obstructive pulmonary disease. 3. Possible pneumonia. 4. Lactic acidosis. 5. Atrial fibrillation with fast ventricular rate. 6. Lactic acidosis. 7. Hypotension. 8. 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 9. Moderate mitral regurgitation. 10. Coronary artery disease, status post CABG and stent placement. 11. Hyperlipidemia. 12. History of colon cancer. 13. History of automatic implantable cardioverter defibrillator. 14. History of valvulopathy, moderate mitral regurgitation, tricuspid regurgitation, mild aortic regurgitation with pulmonary valve regurgitation. 15. Moderate pulmonary hypertension. PLAN: BIPAP.spoke with Pulmonary IV Lasix prn cr 2.0 improving wbc 15 down blood c/s 1 in 4 ,gram positive ? contamination. low ejf 10% on milrinone. Plan Plan of Care Problems Medical Problems: (1) Acute respiratory failure with hypoxemia Status: Acute (2) Lorwn-pe-tloszxg kidney injury Status: Acute (3) CHF exacerbation Status: Acute (4) Leukocytosis Status: Acute Comment Review of Relevant I have reviewed the following items sima (where applicable) has been applied. Labs Laboratory Tests Test 09/05/18 12:00 09/05/18 16:52 09/05/18 20:54 09/06/18 04:00 Glucose (Fingerstick) 184 mg/dL (70-99) 154 mg/dL (70-99) 189 mg/dL (70-99) White Blood Count 15.4 x10^3/uL (4.0-11.0) Red Blood Count 4.12 x10^6/uL (4.30-5.70) Hemoglobin 12.6 g/dL (13.0-17.5) Hematocrit 38.0 % (39.0-53.0) Mean Corpuscular Volume 92 fL (79-100) Mean Corpuscular Hemoglobin 31 pg (25-35) Mean Corpuscular Hemoglobin Concent 33 g/dL (31-37) Red Cell Distribution Width 15.4 % (11.5-14.5) Platelet Count 165 x10^3/uL (140-400) Neutrophils (%) (Auto) 87 % (31-73) Lymphocytes (%) (Auto) 6 % (24-48) Monocytes (%) (Auto) 6 % (0-9) Eosinophils (%) (Auto) 0 % (0-3) Basophils (%) (Auto) 0 % (0-3) Neutrophils # (Auto) 13.5 x10^3uL (1.8-7.7) Lymphocytes # (Auto) 1.0 x10^3/uL (1.0-4.8) Monocytes # (Auto) 1.0 x10^3/uL (0.0-1.1) Eosinophils # (Auto) 0.0 x10^3/uL (0.0-0.7) Basophils # (Auto) 0.0 x10^3/uL (0.0-0.2) Sodium Level 139 mmol/L (136-145) Potassium Level 4.5 mmol/L (3.5-5.1) Chloride Level 101 mmol/L (98-107) Carbon Dioxide Level 27 mmol/L (21-32) Anion Gap 11 (6-14) Blood Urea Nitrogen 61 mg/dL (8-26) Creatinine 2.0 mg/dL (0.7-1.3) Estimated GFR (Cockcroft-Gault) 32.2 Glucose Level 189 mg/dL (70-99) Calcium Level 9.0 mg/dL (8.5-10.1) Test 09/06/18 07:36 Glucose (Fingerstick) 170 mg/dL (70-99) Microbiology 09/04/18 Blood Culture - Preliminary, Resulted NO GROWTH AFTER 2 DAYS Medications Current Medications Furosemide (Lasix) 40 mg 1X ONCE IVP ; Start 09/06/18 at 11:00; Stop 09/06/18 at 11:01; Status UNV Lactobacillus Rhamnosus (Culturelle) 1 cap BID PO Last administered on at 08:27; Start 09/05/18 at 21:00 Milrinone Lactate/ Dextrose 100 ml @ 2.625 mls/ hr CONT PRN PRN IV PER PROTOCOL Last administered on 09/05/18at 13:34; Start 09/05/18 at 13:15 Vitals/I & O Vital Sign - Last 24 Hours 09/05/18 09/05/18 09/05/18 09/05/18 12:00 12:07 12:23 13:00 Temp 98.1 98.1 Pulse 107 108 Resp 18 18 B/P (MAP) 98/73 (81) 113/75 (88) Pulse Ox 91 91 91 O2 Delivery Nasal Cannula Nasal Cannula Nasal Cannula Nasal Cannula O2 Flow Rate 4.0 4.0 5.0 5.0 09/05/18 09/05/18 09/05/18 09/05/18 14:00 15:00 16:00 16:32 Pulse 108 110 110 Resp 20 17 18 B/P (MAP) 118/78 (91) 123/78 (93) 123/76 (92) Pulse Ox 94 95 94 94 O2 Delivery BiPAP/CPAP BiPAP/CPAP BiPAP/CPAP BiPAP/CPAP 09/05/18 09/05/18 09/05/18 09/05/18 17:00 17:20 17:40 19:09 Temp 98.0 98.0 Pulse 112 124 Resp 18 18 B/P (MAP) 124/87 (99) 148/92 (110) Pulse Ox 92 77 91 O2 Delivery Nasal Cannula Nasal Cannula Nasal Cannula BiPAP/CPAP O2 Flow Rate 5.0 5.0 6.0 09/05/18 09/05/18 09/05/18 09/05/18 19:15 20:00 20:59 20:59 Temp 98.0 98.0 Pulse 121 121 121 Resp 22 B/P (MAP) 156/89 (111) 156/89 156/89 Pulse Ox 90 O2 Delivery BiPAP/CPAP Bi-pap 09/05/18 09/05/18 09/05/18 09/05/18 21:15 22:50 23:00 23:36 Temp 98.7 98.7 Pulse 109 Resp 22 B/P (MAP) 129/91 (104) 138/69 (92) Pulse Ox 94 94 93 O2 Delivery BiPAP/CPAP BiPAP/CPAP BiPAP/CPAP 09/06/18 09/06/18 09/06/18 09/06/18 00:36 00:40 01:36 02:12 B/P (MAP) 115/80 (92) 133/85 (101) Pulse Ox 94 95 O2 Delivery BiPAP/CPAP BiPAP/CPAP 09/06/18 09/06/18 09/06/18 09/06/18 02:36 03:00 03:36 05:30 Pulse 111 Resp 21 B/P (MAP) 152/84 (106) 134/90 (105) 123/78 (93) Pulse Ox 95 96 O2 Delivery BiPAP/CPAP BiPAP/CPAP 09/06/18 09/06/18 09/06/18 09/06/18 05:36 07:00 07:39 07:40 Temp 98.1 98.1 Pulse 111 94 Resp 20 B/P (MAP) 156/87 (110) 121/82 (95) Pulse Ox 98 95 O2 Delivery BiPAP/CPAP BiPAP/CPAP Bi-pap O2 Flow Rate 6.0 09/06/18 09/06/18 09/06/18 07:40 08:26 08:27 Pulse 94 94 B/P (MAP) 121/82 121/82 O2 Flow Rate 5.0 Intake and Output 09/05/18 09/05/18 09/06/18 15:00 23:00 07:00 Intake Total 180 ml 68.4 ml 600 ml Output Total 215 ml 85 ml 650 ml Balance -35 ml -16.6 ml -50 ml CAIN DHILOLN MD Sep 06, 2018 11:08
--- NOTE | 2018-09-06 15:19 | PDOC ---
Infectious Disease Note Subjective Subjective c/o increase work of breathing Denies CP/cough/F/C/S/N/V/D ROS ROS per HPI Vital Sign Vital Signs Vital Signs Date Time Temp Pulse Resp B/P (MAP) Pulse Ox O2 Delivery O2 Flow Rate FiO2 09/06/18 11:54 95 BiPAP/CPAP 09/06/18 11:00 98.0 94 20 121/79 (93) 98.0 09/06/18 07:40 5.0 Physical Exam PHYSICAL EXAM GENERAL: Propped up in bed, alert, calm, eating breakfast HEENT: Oral cavity clear NECK: Supple, no JVP, no lymphadenopathy. LUNGS: Diminished aeration, nonlabored HEART: S1, S2 AICD ABDOMEN: Soft and nontender : Eldridge EXTREMITIES: No edema, no cyanosis. SKIN: No rash NEUROLOGIC: ALert, responds appropriately PIV Labs Lab Laboratory Tests Test 09/05/18 16:52 09/05/18 20:54 09/06/18 04:00 09/06/18 07:36 Glucose (Fingerstick) 154 mg/dL (70-99) 189 mg/dL (70-99) 170 mg/dL (70-99) White Blood Count 15.4 x10^3/uL (4.0-11.0) Red Blood Count 4.12 x10^6/uL (4.30-5.70) Hemoglobin 12.6 g/dL (13.0-17.5) Hematocrit 38.0 % (39.0-53.0) Mean Corpuscular Volume 92 fL (79-100) Mean Corpuscular Hemoglobin 31 pg (25-35) Mean Corpuscular Hemoglobin Concent 33 g/dL (31-37) Red Cell Distribution Width 15.4 % (11.5-14.5) Platelet Count 165 x10^3/uL (140-400) Neutrophils (%) (Auto) 87 % (31-73) Lymphocytes (%) (Auto) 6 % (24-48) Monocytes (%) (Auto) 6 % (0-9) Eosinophils (%) (Auto) 0 % (0-3) Basophils (%) (Auto) 0 % (0-3) Neutrophils # (Auto) 13.5 x10^3uL (1.8-7.7) Lymphocytes # (Auto) 1.0 x10^3/uL (1.0-4.8) Monocytes # (Auto) 1.0 x10^3/uL (0.0-1.1) Eosinophils # (Auto) 0.0 x10^3/uL (0.0-0.7) Basophils # (Auto) 0.0 x10^3/uL (0.0-0.2) Sodium Level 139 mmol/L (136-145) Potassium Level 4.5 mmol/L (3.5-5.1) Chloride Level 101 mmol/L (98-107) Carbon Dioxide Level 27 mmol/L (21-32) Anion Gap 11 (6-14) Blood Urea Nitrogen 61 mg/dL (8-26) Creatinine 2.0 mg/dL (0.7-1.3) Estimated GFR (Cockcroft-Gault) 32.2 Glucose Level 189 mg/dL (70-99) Calcium Level 9.0 mg/dL (8.5-10.1) Test 09/06/18 11:11 Glucose (Fingerstick) 195 mg/dL (70-99) Micro BLOOD CULTURE Final GRAM POSSITIVE COCCI 2 SETS DRAWN, 1 OF 4 POSITIVE Objective Assessment Lactic acidosis,,,improved CHF/Pulmonary edema Leukocytosis likely reactive,,improving Pulmonary infiltrate Hypoxemia Cardiomyopathy EF 10%, on milrinone. Renal insufficiency GPC bacteremia from 09/04, 1 of 4 bottles, likely contaminate A fib, on amiodarone Plan Plan of Care Continue Rocephin Azithro x 1 dose, 09/04 f/u cultures Supportive care d/w Dr. Peterson Patient seen, examined, I agree with above A/P ANNA MARIE PATEL APRN Sep 06, 2018 15:19 WOJCIECH CONROY MD Sep 06, 2018 15:20
[2018-09-06] MEDS: MILRINONE 20MG/100ML PREMIX 100 ML IV PRN (18:35)
[2018-09-06] MEDS: MONTELUKAST SODIUM 10 MG TABLET. PO SCH (20:44)
[2018-09-06] MEDS: ATORVASTATIN CALCIUM 40 MG TABLET. PO SCH (20:45)
[2018-09-06] MEDS ORDERED: DIGOXIN IV 500 MCG/2 ML AMPUL. IV ONE (22:45)
[2018-09-07 03:00] VITALS: BP 129/91
[2018-09-07] MEDS: cefTRIAXone IV Push 1 GM VIAL. IVP SCH (05:28)
[2018-09-07] MEDS: LEVOTHYROXINE 50 MCG TABLET PO SCH (05:28)
[2018-09-07 06:36] LABS: BASO % 0 % (0-3); EOS % 0 % (0-3); HEMOGLOBIN 12.1 g/dL (13.0-17.5); LYMPH # 0.9 x10^3/uL (1.0-4.8); LYMPH % 8 % (24-48); MEAN CORPUSCULAR HEMOGLOBIN 32 pg (25-35); MEAN CORPUSCULAR HGB CONC 35 g/dL (31-37); MEAN CORPUSCULAR VOLUME 91 fL (79-100); MONO # 0.7 x10^3/uL (0.0-1.1); MONO % 6 % (0-9); NEUT # 9.1 x10^3uL (1.8-7.7); NEUT % 85 % (31-73); PLATELET COUNT 150 x10^3/uL (140-400); RED BLOOD COUNT 3.83 x10^6/uL (4.30-5.70); RED CELL DISTRIBUTION WIDTH 15.3 % (11.5-14.5); WHITE BLOOD COUNT 10.7 x10^3/uL (4.0-11.0)
[2018-09-07 06:53] LABS: CALCIUM 8.9 mg/dL (8.5-10.1); CREATININE 1.7 mg/dL (0.7-1.3); GFR 38.9; POTASSIUM 4.4 mmol/L (3.5-5.1)
[2018-09-07 07:36] VITALS: BP 145/95
[2018-09-07] MEDS: MAGNESIUM OXIDE 400 MG TABLET PO SCH (08:03)
[2018-09-07] MEDS: OMEGA-3 FATTY ACIDS/FISH OIL 1,000 MG CAPSULE. PO SCH (08:03)
[2018-09-07] MEDS: METOPROLOL TART IMMED RELEASE 25 MG TABLET. PO SCH (08:04)
[2018-09-07] MEDS: AMIODARONE HCL 200 MG TABLET. PO SCH (08:05)
[2018-09-07] MEDS: LACTOBACILLUS RHAMNOSUS GG 1 CAPSULE. PO SCH (08:05)
[2018-09-07] MEDS: ASPIRIN CHEWABLE 81 MG TABLET. PO SCH (08:05)
[2018-09-07] MEDS: CYANOCOBALAMIN (VITAMIN B-12) 1,000 MCG TABLET. PO SCH (08:05)
[2018-09-07] MEDS: MULTIVITAMIN with MINERAL TABLET. PO SCH (08:05)
[2018-09-07] MEDS: APIXABAN 2.5 MG TABLET. PO SCH (08:06)
[2018-09-07] MEDS: INSULIN LISPRO 300 UNITS/3 ML INSULN.PEN. SQ SCH ×2 (08:09→12:12)
[2018-09-07] MEDS: IPRATRPIUM/ALBUTEROL 0.5/2.5MG 3 ML NEBU. NEB SCH ×2 (08:27→11:39)
--- NOTE | 2018-09-07 09:46 | PDOC ---
PULMONARY PROGRESS NOTES Subjective remains on BIPAP had runs of V-Tac yesterday Vitals Vital Signs Date Time Temp Pulse Resp B/P (MAP) Pulse Ox O2 Delivery O2 Flow Rate FiO2 09/07/18 08:29 93 BiPAP/CPAP 09/07/18 08:05 113 129/91 09/07/18 07:50 5.0 09/07/18 03:00 98.9 22 98.9 General: Alert, No acute distress Lungs: Other (decrease bs) Cardiovascular: S1 Abdomen: Soft Extremities: No Edema Labs Laboratory Tests Test 09/05/18 12:00 09/05/18 16:52 09/05/18 20:54 09/06/18 04:00 Glucose (Fingerstick) 184 mg/dL (70-99) 154 mg/dL (70-99) 189 mg/dL (70-99) White Blood Count 15.4 x10^3/uL (4.0-11.0) Red Blood Count 4.12 x10^6/uL (4.30-5.70) Hemoglobin 12.6 g/dL (13.0-17.5) Hematocrit 38.0 % (39.0-53.0) Mean Corpuscular Volume 92 fL (79-100) Mean Corpuscular Hemoglobin 31 pg (25-35) Mean Corpuscular Hemoglobin Concent 33 g/dL (31-37) Red Cell Distribution Width 15.4 % (11.5-14.5) Platelet Count 165 x10^3/uL (140-400) Neutrophils (%) (Auto) 87 % (31-73) Lymphocytes (%) (Auto) 6 % (24-48) Monocytes (%) (Auto) 6 % (0-9) Eosinophils (%) (Auto) 0 % (0-3) Basophils (%) (Auto) 0 % (0-3) Neutrophils # (Auto) 13.5 x10^3uL (1.8-7.7) Lymphocytes # (Auto) 1.0 x10^3/uL (1.0-4.8) Monocytes # (Auto) 1.0 x10^3/uL (0.0-1.1) Eosinophils # (Auto) 0.0 x10^3/uL (0.0-0.7) Basophils # (Auto) 0.0 x10^3/uL (0.0-0.2) Sodium Level 139 mmol/L (136-145) Potassium Level 4.5 mmol/L (3.5-5.1) Chloride Level 101 mmol/L (98-107) Carbon Dioxide Level 27 mmol/L (21-32) Anion Gap 11 (6-14) Blood Urea Nitrogen 61 mg/dL (8-26) Creatinine 2.0 mg/dL (0.7-1.3) Estimated GFR (Cockcroft-Gault) 32.2 Glucose Level 189 mg/dL (70-99) Calcium Level 9.0 mg/dL (8.5-10.1) Test 09/06/18 07:36 09/06/18 11:11 09/06/18 16:38 09/06/18 20:50 Glucose (Fingerstick) 170 mg/dL (70-99) 195 mg/dL (70-99) 204 mg/dL (70-99) 153 mg/dL (70-99) Test 09/07/18 05:25 09/07/18 07:44 White Blood Count 10.7 x10^3/uL (4.0-11.0) Red Blood Count 3.83 x10^6/uL (4.30-5.70) Hemoglobin 12.1 g/dL (13.0-17.5) Hematocrit 35.0 % (39.0-53.0) Mean Corpuscular Volume 91 fL (79-100) Mean Corpuscular Hemoglobin 32 pg (25-35) Mean Corpuscular Hemoglobin Concent 35 g/dL (31-37) Red Cell Distribution Width 15.3 % (11.5-14.5) Platelet Count 150 x10^3/uL (140-400) Neutrophils (%) (Auto) 85 % (31-73) Lymphocytes (%) (Auto) 8 % (24-48) Monocytes (%) (Auto) 6 % (0-9) Eosinophils (%) (Auto) 0 % (0-3) Basophils (%) (Auto) 0 % (0-3) Neutrophils # (Auto) 9.1 x10^3uL (1.8-7.7) Lymphocytes # (Auto) 0.9 x10^3/uL (1.0-4.8) Monocytes # (Auto) 0.7 x10^3/uL (0.0-1.1) Eosinophils # (Auto) 0.0 x10^3/uL (0.0-0.7) Basophils # (Auto) 0.0 x10^3/uL (0.0-0.2) Sodium Level 139 mmol/L (136-145) Potassium Level 4.4 mmol/L (3.5-5.1) Chloride Level 102 mmol/L (98-107) Carbon Dioxide Level 28 mmol/L (21-32) Anion Gap 9 (6-14) Blood Urea Nitrogen 52 mg/dL (8-26) Creatinine 1.7 mg/dL (0.7-1.3) Estimated GFR (Cockcroft-Gault) 38.9 Glucose Level 162 mg/dL (70-99) Calcium Level 8.9 mg/dL (8.5-10.1) Glucose (Fingerstick) 163 mg/dL (70-99) Laboratory Tests Test 09/06/18 11:11 09/06/18 16:38 09/06/18 20:50 09/07/18 05:25 Glucose (Fingerstick) 195 mg/dL (70-99) 204 mg/dL (70-99) 153 mg/dL (70-99) White Blood Count 10.7 x10^3/uL (4.0-11.0) Red Blood Count 3.83 x10^6/uL (4.30-5.70) Hemoglobin 12.1 g/dL (13.0-17.5) Hematocrit 35.0 % (39.0-53.0) Mean Corpuscular Volume 91 fL (79-100) Mean Corpuscular Hemoglobin 32 pg (25-35) Mean Corpuscular Hemoglobin Concent 35 g/dL (31-37) Red Cell Distribution Width 15.3 % (11.5-14.5) Platelet Count 150 x10^3/uL (140-400) Neutrophils (%) (Auto) 85 % (31-73) Lymphocytes (%) (Auto) 8 % (24-48) Monocytes (%) (Auto) 6 % (0-9) Eosinophils (%) (Auto) 0 % (0-3) Basophils (%) (Auto) 0 % (0-3) Neutrophils # (Auto) 9.1 x10^3uL (1.8-7.7) Lymphocytes # (Auto) 0.9 x10^3/uL (1.0-4.8) Monocytes # (Auto) 0.7 x10^3/uL (0.0-1.1) Eosinophils # (Auto) 0.0 x10^3/uL (0.0-0.7) Basophils # (Auto) 0.0 x10^3/uL (0.0-0.2) Sodium Level 139 mmol/L (136-145) Potassium Level 4.4 mmol/L (3.5-5.1) Chloride Level 102 mmol/L (98-107) Carbon Dioxide Level 28 mmol/L (21-32) Anion Gap 9 (6-14) Blood Urea Nitrogen 52 mg/dL (8-26) Creatinine 1.7 mg/dL (0.7-1.3) Estimated GFR (Cockcroft-Gault) 38.9 Glucose Level 162 mg/dL (70-99) Calcium Level 8.9 mg/dL (8.5-10.1) Test 09/07/18 07:44 Glucose (Fingerstick) 163 mg/dL (70-99) Medications Active Scripts Medications Dose Route/Sig Max Daily Dose Days Date Category Dose Instructions Amiodarone Hcl 200 Mg Tablet 400 Mg PO Q8HRS 09/04/18 Reported Metoprolol Succinate ( Xl ) (Metoprolol Succinate) 25 Mg Tab.er.24h 2 Tab PO Q12HR 09/04/18 Reported Potassium Chloride 10 Meq Tab.sr.24h 20 Meq PO DAILY 04/07/18 Rx Bumetanide 2 Mg Tablet 4 Mg PO DAILY 04/03/18 Reported Eliquis (Apixaban) 2.5 Mg Tablet 2.5 Mg PO [id number] 04/03/18 Reported B-12 (Cyanocobalamin (Vitamin B-12)) 1,000 Mcg Tablet 1,000 Mcg PO DAILY 04/01/18 Reported Mag-Oxide (Magnesium Oxide) 400 Mg Tablet 400 Mg PO DAILY 04/01/18 Reported Aspirin 81 Mg Tab.chew 81 Mg PO DAILY 04/01/18 Reported Levothyroxine Sodium 50 Mcg Tablet 1 Tab PO DAILY 09/21/17 Reported Novolog Flexpen (Insulin Aspart) 100 Unit/1 Ml Insuln.pen 1 Unit SQ PER SLIDING SCALE 03/21/17 Rx SUbcutaneous injection Before meals three times daily: <150= no insulin 151-200= 2 units insulin 201-250 =3 units insulin 251-300 = 4 units insulin 301-350 = 6 units insulin 351-400 = 8 units insulin >401 call Milk Of Magnesia (Magnesium Hydroxide) 400 Mg/5 Ml Oral.susp 2,400 Mg PO PRN Q24HRS PRN 03/01/17 Rx Entresto 24 mg-26 mg Tablet (Sacubitril/Valsartan) 1 Each Tablet 1 Tab PO BID 02/25/17 Rx Thera-M Tablet (Multivits,Ca,Minerals/Iron/Fa) 1 Each Tablet 1 Tab PO DAILY 01/30/17 Rx Montelukast Sodium Tablet (Montelukast Sodium) 10 Mg Tablet 10 Mg PO QHS 01/30/17 Rx Tylenol (Acetaminophen) 325 Mg Tablet 650 Mg PO PRN Q6HRS PRN 01/30/17 Rx NITROGLYCERIN SubLingual (Nitroglycerin) 0.4 Mg Tab.subl 0.4 Mg SL PRN Q5MIN PRN 01/23/17 Reported Redway-3 Fish Oil 1,000 Mg Sfgl (Redway-3/Dha/Epa/Fish Oil) 1,000 Mg Capsule 2,000 Mg PO DAILY 10/31/15 Reported Crestor (Rosuvastatin Calcium) 20 Mg Tablet 20 Mg PO DAILY 05/29/14 Reported Comments cxr 09/05 mildl chf Impression . 1. Acute hypercapnic and hypoxic respiratory failure secondary to acute on chronic systolic heart failure. 2. Abnormal chest x-ray consistent with congestive heart failure. 3. Severe cardiomyopathy with an EF of 10-15%. 4. Atrial fibrillation triggering congestive heart failure.now had runs of V- Tac yesterday 5. No signs of any infection. 6. No significant history of tobacco use. 7. WILNER on CKD Plan . 1. BIPAP for now/ keep saturation 92 to 94%. 2. Extra prn Diuresis / renal function and BP better today. 3. Follow with chest x-ray as needed ,still with mild CHF 4. on Milrinone 5. Continue Eliquis for atrial fibrillation. 6. Follow Cardiology recommendation. Plans to transfer to [facility] for EP study 7. Follow Infectious Disease recommendations. can dc Abx 8 Discussed with the patient's family and RN BABATUNDE THEODORE MD Sep 07, 2018 09:46
[2018-09-07 09:51] LABS: BASE EXCESS ABG 2 mmol/L (-3-3); HCO3 ABG 26 mmol/L (21-28); PCO2 ABG 37 mmHg (35-46); PO2 ABG 82 mmHg (65-108); SAT O2 ABG 96 % (92-99)
[2018-09-07 09:52] LABS: FIO2 ABG 50
--- NOTE | 2018-09-07 10:56 | PDOC ---
Infectious Disease Note Subjective Subjective Less work of breathing with BiPAP More comfortable No F/C/S Vital Sign Vital Signs Vital Signs Date Time Temp Pulse Resp B/P (MAP) Pulse Ox O2 Delivery O2 Flow Rate FiO2 09/07/18 08:29 93 BiPAP/CPAP 09/07/18 08:05 113 129/91 09/07/18 07:50 5.0 09/07/18 03:00 98.9 22 98.9 Physical Exam PHYSICAL EXAM GENERAL: Propped up in bed, alert, calm HEENT: BiPAP NECK: Supple LUNGS: Diminished aeration, nonlabored HEART: S1, S2 AICD ABDOMEN: Soft and nontender : Eldridge EXTREMITIES: No edema, no cyanosis. SKIN: No rash NEUROLOGIC: Alert, responds appropriately Labs Lab Laboratory Tests Test 09/06/18 11:11 09/06/18 16:38 09/06/18 20:50 09/07/18 05:25 Glucose (Fingerstick) 195 mg/dL (70-99) 204 mg/dL (70-99) 153 mg/dL (70-99) White Blood Count 10.7 x10^3/uL (4.0-11.0) Red Blood Count 3.83 x10^6/uL (4.30-5.70) Hemoglobin 12.1 g/dL (13.0-17.5) Hematocrit 35.0 % (39.0-53.0) Mean Corpuscular Volume 91 fL (79-100) Mean Corpuscular Hemoglobin 32 pg (25-35) Mean Corpuscular Hemoglobin Concent 35 g/dL (31-37) Red Cell Distribution Width 15.3 % (11.5-14.5) Platelet Count 150 x10^3/uL (140-400) Neutrophils (%) (Auto) 85 % (31-73) Lymphocytes (%) (Auto) 8 % (24-48) Monocytes (%) (Auto) 6 % (0-9) Eosinophils (%) (Auto) 0 % (0-3) Basophils (%) (Auto) 0 % (0-3) Neutrophils # (Auto) 9.1 x10^3uL (1.8-7.7) Lymphocytes # (Auto) 0.9 x10^3/uL (1.0-4.8) Monocytes # (Auto) 0.7 x10^3/uL (0.0-1.1) Eosinophils # (Auto) 0.0 x10^3/uL (0.0-0.7) Basophils # (Auto) 0.0 x10^3/uL (0.0-0.2) Sodium Level 139 mmol/L (136-145) Potassium Level 4.4 mmol/L (3.5-5.1) Chloride Level 102 mmol/L (98-107) Carbon Dioxide Level 28 mmol/L (21-32) Anion Gap 9 (6-14) Blood Urea Nitrogen 52 mg/dL (8-26) Creatinine 1.7 mg/dL (0.7-1.3) Estimated GFR (Cockcroft-Gault) 38.9 Glucose Level 162 mg/dL (70-99) Calcium Level 8.9 mg/dL (8.5-10.1) Test 09/07/18 07:44 09/07/18 09:40 Glucose (Fingerstick) 163 mg/dL (70-99) O2 Saturation 96 % (92-99) Arterial Blood pH 7.47 (7.35-7.45) Arterial Blood pCO2 at Patient Temp 37 mmHg (35-46) Arterial Blood pO2 at Patient Temp 82 mmHg (65-108) Arterial Blood HCO3 26 mmol/L (21-28) Arterial Blood Base Excess 2 mmol/L (-3-3) FiO2 50 Micro BLOOD CULTURE Final GRAM POSSITIVE COCCI 2 SETS DRAWN, 1 OF 4 POSITIVE Objective Assessment GPC bacteremia from 09/04, 1 of 4 bottles, likely contaminate, awaiting ID Lactic acidosis,,,improved CHF/Pulmonary edema Leukocytosis likely reactive,,improved Pulmonary infiltrate Hypoxemia Cardiomyopathy EF 10%, on milrinone. Renal insufficiency A fib, on amiodarone Runs of V-tach Plan Plan of Care Continue Rocephin Azithro x 1 dose, 09/04 Plans to transfer to [facility] for EP study GPC ID still pending D/w sig other D/w nursing Patient seen, examined, I agree with above. Assessment and plan was formulated with THERAPEUTIC CASE MANAGER. ANNA MARIE PATEL APRN Sep 07, 2018 10:56 WOJCIECH CONROY MD Sep 07, 2018 16:30
[2018-09-07 11:00] VITALS: BP 165/92
--- NOTE | 2018-09-07 13:00 | PDOC ---
PROGRESS NOTES Subjective Subjective cardiac arrhythmias Objective Objective Vital Signs Date Time Temp Pulse Resp B/P (MAP) Pulse Ox O2 Delivery O2 Flow Rate FiO2 09/07/18 11:40 97 BiPAP/CPAP 09/07/18 11:00 97.9 69 17 165/92 (116) 97.9 09/07/18 07:50 5.0 Intake and Output 09/07/18 06:59 Intake Total 674.0 ml Output Total 1600 ml Balance -926.0 ml Intake Oral 650 ml IV Total 24.0 ml Output Urine Total 1600 ml Stool Total 0 ml Physical Exam Physical Exam BIPAP Abdomen: Normal bowel sounds Heart: Regular rate Extremities: No clubbing, No edema, Normal pulses General: Oriented X3, mild distress HEENT: Atraumatic, Mucous membr. moist/pink Lungs: Other (mildly decreased breath sounds) MUSCULOSKELETAL: Osteoarthritic changes both hands Neuro: Normal speech, Sensation intact Psych/Mental Status: Mental status NL, Mood NL Skin: No breakdown, No significant lesion Diagnosis Problem List Problems Medical Problems: (1) Acute respiratory failure with hypoxemia Status: Acute (2) Fjewr-iq-eazjpve kidney injury Status: Acute (3) CHF exacerbation Status: Acute (4) Leukocytosis Status: Acute Assessment Assessment IMP:cardiac arrhythmias, v tachycardia AC resp failure on BIPAP 1. Acute on chronic hypercapnic and hypoxic respiratory failure. 2. Exacerbation of chronic obstructive pulmonary disease. 3. Possible pneumonia. 4. Lactic acidosis. 5. Atrial fibrillation with fast ventricular rate. 6. Lactic acidosis. 7. Hypotension. 8. 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 9. Moderate mitral regurgitation. 10. Coronary artery disease, status post CABG and stent placement. 11. Hyperlipidemia. 12. History of colon cancer. 13. History of automatic implantable cardioverter defibrillator. 14. History of valvulopathy, moderate mitral regurgitation, tricuspid regurgitation, mild aortic regurgitation with pulmonary valve regurgitation. 15. Moderate pulmonary hypertension. PLAN: plans to transfer to [facility], [facility] pts primary cardiology dr woodard. pt needs peer support specialist ,which we do not have at [facility] BIP.spoke with Pulmonary IV Lasix prn cr 1.7 improving wbc 10 down blood c/s 1 in 4 ,gram positive ? contamination. low ejf 10% on milrinone. Plan Plan of Care Problems Medical Problems: (1) Acute respiratory failure with hypoxemia Status: Acute (2) Lxrew-hl-mnfqbzg kidney injury Status: Acute (3) CHF exacerbation Status: Acute (4) Leukocytosis Status: Acute Comment Review of Relevant I have reviewed the following items sima (where applicable) has been applied. Labs Laboratory Tests Test 09/06/18 16:38 09/06/18 20:50 09/07/18 05:25 09/07/18 07:44 Glucose (Fingerstick) 204 mg/dL (70-99) 153 mg/dL (70-99) 163 mg/dL (70-99) White Blood Count 10.7 x10^3/uL (4.0-11.0) Red Blood Count 3.83 x10^6/uL (4.30-5.70) Hemoglobin 12.1 g/dL (13.0-17.5) Hematocrit 35.0 % (39.0-53.0) Mean Corpuscular Volume 91 fL (79-100) Mean Corpuscular Hemoglobin 32 pg (25-35) Mean Corpuscular Hemoglobin Concent 35 g/dL (31-37) Red Cell Distribution Width 15.3 % (11.5-14.5) Platelet Count 150 x10^3/uL (140-400) Neutrophils (%) (Auto) 85 % (31-73) Lymphocytes (%) (Auto) 8 % (24-48) Monocytes (%) (Auto) 6 % (0-9) Eosinophils (%) (Auto) 0 % (0-3) Basophils (%) (Auto) 0 % (0-3) Neutrophils # (Auto) 9.1 x10^3uL (1.8-7.7) Lymphocytes # (Auto) 0.9 x10^3/uL (1.0-4.8) Monocytes # (Auto) 0.7 x10^3/uL (0.0-1.1) Eosinophils # (Auto) 0.0 x10^3/uL (0.0-0.7) Basophils # (Auto) 0.0 x10^3/uL (0.0-0.2) Sodium Level 139 mmol/L (136-145) Potassium Level 4.4 mmol/L (3.5-5.1) Chloride Level 102 mmol/L (98-107) Carbon Dioxide Level 28 mmol/L (21-32) Anion Gap 9 (6-14) Blood Urea Nitrogen 52 mg/dL (8-26) Creatinine 1.7 mg/dL (0.7-1.3) Estimated GFR (Cockcroft-Gault) 38.9 Glucose Level 162 mg/dL (70-99) Calcium Level 8.9 mg/dL (8.5-10.1) Test 09/07/18 09:40 09/07/18 10:48 O2 Saturation 96 % (92-99) Arterial Blood pH 7.47 (7.35-7.45) Arterial Blood pCO2 at Patient Temp 37 mmHg (35-46) Arterial Blood pO2 at Patient Temp 82 mmHg (65-108) Arterial Blood HCO3 26 mmol/L (21-28) Arterial Blood Base Excess 2 mmol/L (-3-3) FiO2 50 Glucose (Fingerstick) 205 mg/dL (70-99) Microbiology 09/04/18 Blood Culture - Preliminary, Resulted NO GROWTH AFTER 3 DAYS Medications Current Medications Digoxin (Lanoxin) 250 mcg 1X ONCE IV Last administered on 09/06/18at 22:50; Start 09/06/18 at 22:45; Stop 09/06/18 at 22:46; Status DC Vitals/I & O Vital Sign - Last 24 Hours 09/06/18 09/06/18 09/06/18 09/06/18 15:00 16:29 19:30 19:46 Temp 98.3 99.0 98.3 99.0 Pulse 111 111 Resp 20 20 B/P (MAP) 106/66 (79) 150/80 (103) Pulse Ox 100 96 95 97 O2 Delivery BiPAP/CPAP BiPAP/CPAP BiPAP/CPAP BiPAP/CPAP 09/06/18 09/06/18 09/06/18 09/06/18 20:17 20:45 20:46 22:15 Pulse 122 122 B/P (MAP) 150/80 150/80 Pulse Ox 91 O2 Delivery Bi-pap BiPAP/CPAP 09/06/18 09/06/18 09/07/18 09/07/18 22:50 23:41 00:03 01:26 Temp 98.7 98.7 Pulse 122 107 Resp 21 B/P (MAP) 181/112 165/98 (120) Pulse Ox 96 93 95 O2 Delivery BiPAP/CPAP BiPAP/CPAP BiPAP/CPAP 09/07/18 09/07/18 09/07/18 09/07/18 03:00 03:30 05:27 07:36 Temp 98.9 98.9 Pulse 113 112 Resp 22 B/P (MAP) 129/91 (104) 145/95 (112) Pulse Ox 95 94 96 97 O2 Delivery BiPAP/CPAP BiPAP/CPAP BiPAP/CPAP BiPAP/CPAP O2 Flow Rate 5.0 09/07/18 09/07/18 09/07/18 09/07/18 07:50 07:50 08:04 08:05 Pulse 113 113 B/P (MAP) 145/95 129/91 O2 Delivery Bi-pap O2 Flow Rate 6.0 5.0 09/07/18 09/07/18 09/07/18 08:29 11:00 11:40 Temp 97.9 97.9 Pulse 69 Resp 17 B/P (MAP) 165/92 (116) Pulse Ox 93 96 97 O2 Delivery BiPAP/CPAP BiPAP/CPAP BiPAP/CPAP Intake and Output 09/06/18 09/06/18 09/07/18 14:59 22:59 06:59 Intake Total 350 ml 324.0 ml Output Total 300 ml 600 ml 700 ml Balance -300 ml -250 ml -376.0 ml CAIN DHILLON MD Sep 07, 2018 13:00
[2018-09-07] MEDS ORDERED: AMIO200T4 PO (13:06)
[2018-09-07] MEDS ORDERED: CEFTRIAXONE SODIUM IVP (13:06)
[2018-09-07] MEDS ORDERED: IPRA3AMP29 NEB (13:06)
--- NOTE | 2018-09-07 14:15 | NUR ---
REPORT CALLED TO JENNA JACOBO AT [facility]. PATIENT TRANSFERRING ON BIPAP AT 17/8 16R AT 50%, MILRINONE AT 1.3CC/HR, TELEMETRY, AND PEREZ IN PLACE. PATIENT TRANSFERRING TO [facility] ROOM 572 FOR GENERAL FOUNDRY WORKER CONSULTATION. PATIENT STABLE AT TIME OF DISCHARGE.
[2018-09-07 14:56] VITALS: BP 150/95
--- NOTE | 2018-09-07 16:34 | PDOC ---
PROGRESS NOTES Subjective Subjective Patient seen and examined Objective Objective Vital Signs Date Time Temp Pulse Resp B/P (MAP) Pulse Ox O2 Delivery O2 Flow Rate FiO2 09/07/18 14:56 97.9 86 17 150/95 (113) 97 BiPAP/CPAP 97.9 09/07/18 07:50 5.0 Intake and Output 09/07/18 07:00 Intake Total 674.0 ml Output Total 1600 ml Balance -926.0 ml Intake Oral 650 ml IV Total 24.0 ml Output Urine Total 1600 ml Stool Total 0 ml Physical Exam Abdomen: Normal bowel sounds Heart: Other (irregularly irregular) General: mild distress Lungs: Other (highly decreased breath sounds) Assessment Assessment Problems Medical Problems: (1) Acute respiratory failure with hypoxemia Status: Acute (2) Zpyhj-hx-lvrzlrf kidney injury Status: Acute (3) CHF exacerbation Status: Acute (4) Leukocytosis Status: Acute 1. Acute hypoxic, hypercapnic respiratory failure; secondary to a/c HF. required BiPAP overnight. Feeling better today. 2. Acute on chronic systolic HF; improved on milrinone. We'll continue milrinone at this time. 3. ICM s/p AICD ([place]); LVEF 15-20% 3. PAFIB; v-paced. on Amiodarone. Increasing episodes of tachycardia. Discussed with Dr. Barraza. Plan on transfer to [facility] today for EP evaluation. 4. CAD s/p CABG x 2 with most recent is 2002. Cath in 2016 with occluded SVG to RCA, patent SVG to OM branch, and patent DICKERSON to LAD as noted above. CP free. Stress test performed yesterday with Dr. Barraza. 5. Hypertension; BP improved. 6. Hyperlipidemia; statin 7. Diabetes, II; as per PCP 8. WILNER on CKD Comment Review of Relevant I have reviewed the following items sima (where applicable) has been applied. Labs Laboratory Tests Test 09/05/18 16:52 09/05/18 20:54 09/06/18 04:00 09/06/18 07:36 Glucose (Fingerstick) 154 mg/dL (70-99) 189 mg/dL (70-99) 170 mg/dL (70-99) White Blood Count 15.4 x10^3/uL (4.0-11.0) Red Blood Count 4.12 x10^6/uL (4.30-5.70) Hemoglobin 12.6 g/dL (13.0-17.5) Hematocrit 38.0 % (39.0-53.0) Mean Corpuscular Volume 92 fL (79-100) Mean Corpuscular Hemoglobin 31 pg (25-35) Mean Corpuscular Hemoglobin Concent 33 g/dL (31-37) Red Cell Distribution Width 15.4 % (11.5-14.5) Platelet Count 165 x10^3/uL (140-400) Neutrophils (%) (Auto) 87 % (31-73) Lymphocytes (%) (Auto) 6 % (24-48) Monocytes (%) (Auto) 6 % (0-9) Eosinophils (%) (Auto) 0 % (0-3) Basophils (%) (Auto) 0 % (0-3) Neutrophils # (Auto) 13.5 x10^3uL (1.8-7.7) Lymphocytes # (Auto) 1.0 x10^3/uL (1.0-4.8) Monocytes # (Auto) 1.0 x10^3/uL (0.0-1.1) Eosinophils # (Auto) 0.0 x10^3/uL (0.0-0.7) Basophils # (Auto) 0.0 x10^3/uL (0.0-0.2) Sodium Level 139 mmol/L (136-145) Potassium Level 4.5 mmol/L (3.5-5.1) Chloride Level 101 mmol/L (98-107) Carbon Dioxide Level 27 mmol/L (21-32) Anion Gap 11 (6-14) Blood Urea Nitrogen 61 mg/dL (8-26) Creatinine 2.0 mg/dL (0.7-1.3) Estimated GFR (Cockcroft-Gault) 32.2 Glucose Level 189 mg/dL (70-99) Calcium Level 9.0 mg/dL (8.5-10.1) Test 09/06/18 11:11 09/06/18 16:38 09/06/18 20:50 09/07/18 05:25 Glucose (Fingerstick) 195 mg/dL (70-99) 204 mg/dL (70-99) 153 mg/dL (70-99) White Blood Count 10.7 x10^3/uL (4.0-11.0) Red Blood Count 3.83 x10^6/uL (4.30-5.70) Hemoglobin 12.1 g/dL (13.0-17.5) Hematocrit 35.0 % (39.0-53.0) Mean Corpuscular Volume 91 fL (79-100) Mean Corpuscular Hemoglobin 32 pg (25-35) Mean Corpuscular Hemoglobin Concent 35 g/dL (31-37) Red Cell Distribution Width 15.3 % (11.5-14.5) Platelet Count 150 x10^3/uL (140-400) Neutrophils (%) (Auto) 85 % (31-73) Lymphocytes (%) (Auto) 8 % (24-48) Monocytes (%) (Auto) 6 % (0-9) Eosinophils (%) (Auto) 0 % (0-3) Basophils (%) (Auto) 0 % (0-3) Neutrophils # (Auto) 9.1 x10^3uL (1.8-7.7) Lymphocytes # (Auto) 0.9 x10^3/uL (1.0-4.8) Monocytes # (Auto) 0.7 x10^3/uL (0.0-1.1) Eosinophils # (Auto) 0.0 x10^3/uL (0.0-0.7) Basophils # (Auto) 0.0 x10^3/uL (0.0-0.2) Sodium Level 139 mmol/L (136-145) Potassium Level 4.4 mmol/L (3.5-5.1) Chloride Level 102 mmol/L (98-107) Carbon Dioxide Level 28 mmol/L (21-32) Anion Gap 9 (6-14) Blood Urea Nitrogen 52 mg/dL (8-26) Creatinine 1.7 mg/dL (0.7-1.3) Estimated GFR (Cockcroft-Gault) 38.9 Glucose Level 162 mg/dL (70-99) Calcium Level 8.9 mg/dL (8.5-10.1) Test 09/07/18 07:44 09/07/18 09:40 09/07/18 10:48 Glucose (Fingerstick) 163 mg/dL (70-99) 205 mg/dL (70-99) O2 Saturation 96 % (92-99) Arterial Blood pH 7.47 (7.35-7.45) Arterial Blood pCO2 at Patient Temp 37 mmHg (35-46) Arterial Blood pO2 at Patient Temp 82 mmHg (65-108) Arterial Blood HCO3 26 mmol/L (21-28) Arterial Blood Base Excess 2 mmol/L (-3-3) FiO2 50 Laboratory Tests Test 09/06/18 16:38 09/06/18 20:50 09/07/18 05:25 09/07/18 07:44 Glucose (Fingerstick) 204 mg/dL (70-99) 153 mg/dL (70-99) 163 mg/dL (70-99) White Blood Count 10.7 x10^3/uL (4.0-11.0) Red Blood Count 3.83 x10^6/uL (4.30-5.70) Hemoglobin 12.1 g/dL (13.0-17.5) Hematocrit 35.0 % (39.0-53.0) Mean Corpuscular Volume 91 fL (79-100) Mean Corpuscular Hemoglobin 32 pg (25-35) Mean Corpuscular Hemoglobin Concent 35 g/dL (31-37) Red Cell Distribution Width 15.3 % (11.5-14.5) Platelet Count 150 x10^3/uL (140-400) Neutrophils (%) (Auto) 85 % (31-73) Lymphocytes (%) (Auto) 8 % (24-48) Monocytes (%) (Auto) 6 % (0-9) Eosinophils (%) (Auto) 0 % (0-3) Basophils (%) (Auto) 0 % (0-3) Neutrophils # (Auto) 9.1 x10^3uL (1.8-7.7) Lymphocytes # (Auto) 0.9 x10^3/uL (1.0-4.8) Monocytes # (Auto) 0.7 x10^3/uL (0.0-1.1) Eosinophils # (Auto) 0.0 x10^3/uL (0.0-0.7) Basophils # (Auto) 0.0 x10^3/uL (0.0-0.2) Sodium Level 139 mmol/L (136-145) Potassium Level 4.4 mmol/L (3.5-5.1) Chloride Level 102 mmol/L (98-107) Carbon Dioxide Level 28 mmol/L (21-32) Anion Gap 9 (6-14) Blood Urea Nitrogen 52 mg/dL (8-26) Creatinine 1.7 mg/dL (0.7-1.3) Estimated GFR (Cockcroft-Gault) 38.9 Glucose Level 162 mg/dL (70-99) Calcium Level 8.9 mg/dL (8.5-10.1) Test 09/07/18 09:40 09/07/18 10:48 O2 Saturation 96 % (92-99) Arterial Blood pH 7.47 (7.35-7.45) Arterial Blood pCO2 at Patient Temp 37 mmHg (35-46) Arterial Blood pO2 at Patient Temp 82 mmHg (65-108) Arterial Blood HCO3 26 mmol/L (21-28) Arterial Blood Base Excess 2 mmol/L (-3-3) FiO2 50 Glucose (Fingerstick) 205 mg/dL (70-99) Microbiology 09/04/18 Blood Culture - Preliminary, Resulted NO GROWTH AFTER 3 DAYS Medications Current Medications Ipratropium [place] (Atrovent) 0.5 mg 1X ONCE NEB Last administered on at 02:45; Start 09/04/18 at 02:45; Stop 09/04/18 at 02:46; Status DC Methylprednisolone Sodium Succinate (SOLU-Medrol 125MG VIAL) 125 mg 1X ONCE IV Last administered on 09/04/18at 03:07; Start 09/04/18 at 02:45; Stop 09/04/18 at 02:46; Status DC Albuterol Sulfate (Ventolin Neb Soln) 5 mg 1X ONCE CONT NEB Last administered on 09/04/18at 02:45; Start 09/04/18 at 02:45; Stop 09/04/18 at 02:46; Status DC Magnesium Sulfate 50 ml @ 25 mls/hr 1X ONCE IV Last administered on 09/04/18at 03:07; Start 09/04/18 at 02:45; Stop 09/04/18 at 04:44; Status DC Morphine Sulfate (Morphine Sulfate) 4 mg 1X ONCE IV Last administered on at 03:10; Start 09/04/18 at 03:00; Stop 09/04/18 at 03:01; Status DC Ondansetron HCl (Zofran) 4 mg 1X ONCE IV Last administered on 09/04/18at 03:12 ; Start 09/04/18 at 03:00; Stop 09/04/18 at 03:01; Status DC Furosemide (Lasix) 80 mg 1X ONCE IVP Last administered on 09/04/18at 03:09; Start 09/04/18 at 03:00; Stop 09/04/18 at 03:01; Status DC Furosemide (Lasix) 100 mg STK-MED ONCE .ROUTE ; Start 09/04/18 at 02:50; Stop at 02:52; Status DC Ceftriaxone Sodium (Rocephin) 1 gm 1X ONCE IVP Last administered on 09/04/18at 03:59; Start 09/04/18 at 03:45; Stop 09/04/18 at 03:46; Status DC Azithromycin 250 ml @ 250 mls/hr 1X ONCE IV Last administered on 09/04/18at 03 :59; Start 09/04/18 at 04:00; Stop 09/04/18 at 04:59; Status DC Insulin Human Regular (HumuLIN R VIAL) 6 unit 1X ONCE IV Last administered on 09/04/18at 04:03; Start 09/04/18 at 04:00; Stop 09/04/18 at 04:01; Status DC Morphine Sulfate (Morphine Sulfate) 4 mg PRN Q2HR PRN IV PAIN; Start 09/04/18 at 04:15; Stop 09/05/18 at 04:14; Status DC Acetaminophen (Tylenol) 650 mg PRN Q4HRS PRN PO FEVER; Start 09/04/18 at 04:15 ; Stop 09/05/18 at 04:14; Status DC Albuterol/ Ipratropium (Duoneb) 3 ml RTQID NEB Last administered on 09/07/18at 11:39; Start 09/04/18 at 08:00; Stop 09/07/18 at 15:54; Status DC Sodium Chloride 500 ml @ 500 mls/hr 1X ONCE IV Last administered on at 04:55; Start 09/04/18 at 05:00; Stop 09/04/18 at 05:59; Status DC Sodium Chloride 500 ml @ 500 mls/hr 1X ONCE IV Last administered on at 05:33; Start 09/04/18 at 05:30; Stop 09/04/18 at 06:29; Status DC Ceftriaxone Sodium (Rocephin) 1 gm Q24H IVP Last administered on 09/07/18at 05: 28; Start 09/05/18 at 04:00; Stop 09/07/18 at 15:54; Status DC Acetaminophen (Tylenol) 650 mg PRN Q6HRS PRN PO Headaches, Temp > 101.5F; Start 09/04/18 at 11:15; Stop 09/07/18 at 15:54; Status DC Apixaban (Eliquis) 2.5 mg BIDWBK/ PO ; Start 09/04/18 at 12:00; Stop at 12:44; Status DC Aspirin (Children'S Aspirin) 81 mg DAILY PO Last administered on 09/07/18at 08: 05; Start 09/04/18 at 11:15; Stop 09/07/18 at 15:54; Status DC Cyanocobalamin (Vitamin B-12) 1,000 mcg DAILY PO Last administered on 08:05; Start 09/04/18 at 11:00; Stop 09/07/18 at 15:54; Status DC Magnesium Hydroxide (Milk Of Magnesia) 2,400 mg PRN Q24HRS PRN PO CONSTIPATION ; Start 09/04/18 at 11:15; Stop 09/07/18 at 15:54; Status DC Multivitamins (Thera M Plus) 1 tab DAILY PO Last administered on 09/07/18at 08: 05; Start 09/04/18 at 11:00; Stop 09/07/18 at 15:54; Status DC Nitroglycerin (Nitrostat) 0.4 mg PRN Q5MIN PRN SL CHEST PAIN; Start 09/04/18 at 11:15; Stop 09/07/18 at 15:54; Status DC Levothyroxine Sodium (Synthroid) 50 mcg DAILY06 PO Last administered on at 05:28; Start 09/04/18 at 11:00; Stop 09/07/18 at 15:54; Status DC Magnesium Oxide (Magnesium Oxide) 400 mg DAILY PO Last administered on at 08:03; Start 09/04/18 at 11:00; Stop 09/07/18 at 15:54; Status DC Montelukast Sodium (Singulair) 10 mg QHS PO Last administered on 09/06/18at 20: 44; Start 09/04/18 at 21:00; Stop 09/07/18 at 15:54; Status DC Fish Oil (Fish Oil) 2,000 mg DAILY PO Last administered on 09/07/18 08:03; Start 09/04/18 at 11:00; Stop 09/07/18 at 15:54; Status DC Atorvastatin Calcium (Lipitor) 80 mg QHS PO Last administered on 09/06/18at 20: 45; Start 09/04/18 at 21:00; Stop 09/07/18 at 15:54; Status DC Apixaban (Eliquis) 2.5 mg BID PO Last administered on 09/07/18at 08:06; Start at 13:00; Stop 09/07/18 at 15:54; Status DC Metoprolol Tartrate (Lopressor) 25 mg BID PO Last administered on 09/05/18at 08: 03; Start 09/04/18 at 21:00; Stop 09/05/18 at 08:54; Status DC Amiodarone HCl (Cordarone) 200 mg BID PO Last administered on 09/07/18at 08:05; Start 09/04/18 at 21:00; Stop 09/07/18 at 15:54; Status DC Insulin Human Lispro (HumaLOG) 0-7 UNITS TIDWMEALS SQ Last administered on 09/07at 12:12; Start 09/04/18 at 17:30; Stop 09/07/18 at 15:54; Status DC Dextrose (Dextrose 50%-Water Syringe) 12.5 gm PRN Q15MIN PRN IV SEE COMMENTS; Start 09/04/18 at 17:00; Stop 09/07/18 at 15:54; Status DC Metoprolol Tartrate (Lopressor) 25 mg BID PO Last administered on 09/07/18at 08: 04; Start 09/05/18 at 09:00; Stop 09/07/18 at 15:54; Status DC Metoprolol Tartrate (Lopressor) 25 mg 1X ONCE PO Last administered on at 19:32; Start 09/04/18 at 19:30; Stop 09/04/18 at 19:31; Status DC Lactobacillus Rhamnosus (Culturelle) 1 cap BID PO Last administered on at 08:05; Start 09/05/18 at 21:00; Stop 09/07/18 at 15:54; Status DC Milrinone Lactate/ Dextrose 100 ml @ 1.313 mls/ hr CONT PRN PRN IV PER PROTOCOL Last administered on 09/06/18at 18:35; Start 09/05/18 at 13:15; Stop at 15:54; Status DC Furosemide (Lasix) 40 mg 1X ONCE IVP Last administered on 09/06/18at 11:20; Start 09/06/18 at 11:00; Stop 09/06/18 at 11:01; Status DC Digoxin (Lanoxin) 250 mcg 1X ONCE IV Last administered on 09/06/18at 22:50; Start 09/06/18 at 22:45; Stop 09/06/18 at 22:46; Status DC Active Scripts Active Duoneb 0.5-3(2.5) Mg/3 Ml (Albuterol/Ipratropium) 3 Ml Ampul.neb 3 Ml NEB RTQID 7 Days [Ceftriaxone Sodium] 1 GM Vial 1 Gm IVP Q24H 7 Days Amiodarone Hcl 200 Mg Tablet 200 Mg PO BID 30 Days Potassium Chloride 10 Meq Tab.sr.24h 20 Meq PO DAILY Novolog Flexpen (Insulin Aspart) 100 Unit/1 Ml Insuln.pen 1 Unit SQ PER SLIDING SCALE SUbcutaneous injection Before meals three times daily: <150= no insulin 151-200= 2 units insulin 201-250 =3 units insulin 251-300 = 4 units insulin 301-350 = 6 units insulin 351-400 = 8 units insulin >401 call Milk Of Magnesia (Magnesium Hydroxide) 400 Mg/5 Ml Oral.susp 2,400 Mg PO PRN Q24HRS PRN Entresto 24 mg-26 mg Tablet (Sacubitril/Valsartan) 1 Each Tablet 1 Tab PO BID Thera-M Tablet (Multivits,Ca,Minerals/Iron/Fa) 1 Each Tablet 1 Tab PO DAILY Montelukast Sodium Tablet (Montelukast Sodium) 10 Mg Tablet 10 Mg PO QHS Tylenol (Acetaminophen) 325 Mg Tablet 650 Mg PO PRN Q6HRS PRN Reported Metoprolol Succinate ( Xl ) (Metoprolol Succinate) 25 Mg Tab.er.24h 2 Tab PO Q12HR Bumetanide 2 Mg Tablet 4 Mg PO DAILY Eliquis (Apixaban) 2.5 Mg Tablet 2.5 Mg PO BIDWBKFT/[id number] B-12 (Cyanocobalamin (Vitamin B-12)) 1,000 Mcg Tablet 1,000 Mcg PO DAILY Mag-Oxide (Magnesium Oxide) 400 Mg Tablet 400 Mg PO DAILY Aspirin 81 Mg Tab.chew 81 Mg PO DAILY Levothyroxine Sodium 50 Mcg Tablet 1 Tab PO DAILY NITROGLYCERIN SubLingual (Nitroglycerin) 0.4 Mg Tab.subl 0.4 Mg SL PRN Q5MIN PRN [place]-3 Fish Oil 1,000 Mg Sfgl ([place]-3/Dha/Epa/Fish Oil) 1,000 Mg Capsule 2, 000 Mg PO DAILY Crestor (Rosuvastatin Calcium) 20 Mg Tablet 20 Mg PO DAILY Vitals/I & O Vital Sign - Last 24 Hours 09/06/18 09/06/18 09/06/18 09/06/18 19:30 19:46 20:17 20:45 Temp 99.0 99.0 Pulse 111 122 Resp 20 B/P (MAP) 150/80 (103) 150/80 Pulse Ox 95 97 O2 Delivery BiPAP/CPAP BiPAP/CPAP Bi-pap 09/06/18 09/06/18 09/06/18 09/06/18 20:46 22:15 22:50 23:41 Temp 98.7 98.7 Pulse 122 122 107 Resp 21 B/P (MAP) 150/80 181/112 165/98 (120) Pulse Ox 91 96 O2 Delivery BiPAP/CPAP BiPAP/CPAP 09/07/18 09/07/18 09/07/18 09/07/18 00:03 01:26 03:00 03:30 Temp 98.9 98.9 Pulse 113 Resp 22 B/P (MAP) 129/91 (104) Pulse Ox 93 95 95 94 O2 Delivery BiPAP/CPAP BiPAP/CPAP BiPAP/CPAP BiPAP/CPAP 09/07/18 09/07/18 09/07/18 09/07/18 05:27 07:36 07:50 07:50 Pulse 112 B/P (MAP) 145/95 (112) Pulse Ox 96 97 O2 Delivery BiPAP/CPAP BiPAP/CPAP Bi-pap O2 Flow Rate 5.0 6.0 5.0 09/07/18 09/07/18 09/07/18 09/07/18 08:04 08:05 08:29 11:00 Temp 97.9 97.9 Pulse 113 113 69 Resp 17 B/P (MAP) 145/95 129/91 165/92 (116) Pulse Ox 93 96 O2 Delivery BiPAP/CPAP BiPAP/CPAP 09/07/18 09/07/18 11:40 14:56 Temp 97.9 97.9 Pulse 86 Resp 17 B/P (MAP) 150/95 (113) Pulse Ox 97 97 O2 Delivery BiPAP/CPAP BiPAP/CPAP Intake and Output 09/06/18 09/06/18 09/07/18 15:00 23:00 07:00 Intake Total 350 ml 324.0 ml Output Total 300 ml 600 ml 700 ml Balance -300 ml -250 ml -376.0 ml RENEE ARMSTRONG MD Sep 07, 2018 16:34
--- NOTE | 2018-09-08 10:11 | PDOC3 ---
IM DISCHARGE SUMMARY Date of Admission Date of Admission Date of Admission: Sep 04, 2018 at 04:02 Date of Discharge Date of Discharge September 07, 2018 Primary Diagnosis Primary Diagnosis 1. Acute on chronic hypercapnic and hypoxic respiratory failure. 2. Exacerbation of chronic obstructive pulmonary disease. 3. Possible pneumonia. 4. Lactic acidosis. 5. Atrial fibrillation with fast ventricular rate. 6. Lactic acidosis. 7. Hypotension. 8. 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 9. Moderate mitral regurgitation. 10. Coronary artery disease, status post CABG and stent placement. 11. Hyperlipidemia. 12. History of colon cancer. 13. History of automatic implantable cardioverter defibrillator. 14. History of valvulopathy, moderate mitral regurgitation, tricuspid regurgitation, mild aortic regurgitation with pulmonary valve regurgitation. 15. Moderate pulmonary hypertension. Consults Consults David Rangel MD, Dr. Trejo, Dr. Pino. Labs Labs Laboratory Tests Test 09/05/18 12:00 09/05/18 16:52 09/05/18 20:54 09/06/18 04:00 Glucose (Fingerstick) 184 mg/dL (70-99) 154 mg/dL (70-99) 189 mg/dL (70-99) White Blood Count 15.4 x10^3/uL (4.0-11.0) Red Blood Count 4.12 x10^6/uL (4.30-5.70) Hemoglobin 12.6 g/dL (13.0-17.5) Hematocrit 38.0 % (39.0-53.0) Mean Corpuscular Volume 92 fL (79-100) Mean Corpuscular Hemoglobin 31 pg (25-35) Mean Corpuscular Hemoglobin Concent 33 g/dL (31-37) Red Cell Distribution Width 15.4 % (11.5-14.5) Platelet Count 165 x10^3/uL (140-400) Neutrophils (%) (Auto) 87 % (31-73) Lymphocytes (%) (Auto) 6 % (24-48) Monocytes (%) (Auto) 6 % (0-9) Eosinophils (%) (Auto) 0 % (0-3) Basophils (%) (Auto) 0 % (0-3) Neutrophils # (Auto) 13.5 x10^3uL (1.8-7.7) Lymphocytes # (Auto) 1.0 x10^3/uL (1.0-4.8) Monocytes # (Auto) 1.0 x10^3/uL (0.0-1.1) Eosinophils # (Auto) 0.0 x10^3/uL (0.0-0.7) Basophils # (Auto) 0.0 x10^3/uL (0.0-0.2) Sodium Level 139 mmol/L (136-145) Potassium Level 4.5 mmol/L (3.5-5.1) Chloride Level 101 mmol/L (98-107) Carbon Dioxide Level 27 mmol/L (21-32) Anion Gap 11 (6-14) Blood Urea Nitrogen 61 mg/dL (8-26) Creatinine 2.0 mg/dL (0.7-1.3) Estimated GFR (Cockcroft-Gault) 32.2 Glucose Level 189 mg/dL (70-99) Calcium Level 9.0 mg/dL (8.5-10.1) Test 09/06/18 07:36 09/06/18 11:11 09/06/18 16:38 09/06/18 20:50 Glucose (Fingerstick) 170 mg/dL (70-99) 195 mg/dL (70-99) 204 mg/dL (70-99) 153 mg/dL (70-99) Test 09/07/18 05:25 09/07/18 07:44 09/07/18 09:40 09/07/18 10:48 White Blood Count 10.7 x10^3/uL (4.0-11.0) Red Blood Count 3.83 x10^6/uL (4.30-5.70) Hemoglobin 12.1 g/dL (13.0-17.5) Hematocrit 35.0 % (39.0-53.0) Mean Corpuscular Volume 91 fL (79-100) Mean Corpuscular Hemoglobin 32 pg (25-35) Mean Corpuscular Hemoglobin Concent 35 g/dL (31-37) Red Cell Distribution Width 15.3 % (11.5-14.5) Platelet Count 150 x10^3/uL (140-400) Neutrophils (%) (Auto) 85 % (31-73) Lymphocytes (%) (Auto) 8 % (24-48) Monocytes (%) (Auto) 6 % (0-9) Eosinophils (%) (Auto) 0 % (0-3) Basophils (%) (Auto) 0 % (0-3) Neutrophils # (Auto) 9.1 x10^3uL (1.8-7.7) Lymphocytes # (Auto) 0.9 x10^3/uL (1.0-4.8) Monocytes # (Auto) 0.7 x10^3/uL (0.0-1.1) Eosinophils # (Auto) 0.0 x10^3/uL (0.0-0.7) Basophils # (Auto) 0.0 x10^3/uL (0.0-0.2) Sodium Level 139 mmol/L (136-145) Potassium Level 4.4 mmol/L (3.5-5.1) Chloride Level 102 mmol/L (98-107) Carbon Dioxide Level 28 mmol/L (21-32) Anion Gap 9 (6-14) Blood Urea Nitrogen 52 mg/dL (8-26) Creatinine 1.7 mg/dL (0.7-1.3) Estimated GFR (Cockcroft-Gault) 38.9 Glucose Level 162 mg/dL (70-99) Calcium Level 8.9 mg/dL (8.5-10.1) Glucose (Fingerstick) 163 mg/dL (70-99) 205 mg/dL (70-99) O2 Saturation 96 % (92-99) Arterial Blood pH 7.47 (7.35-7.45) Arterial Blood pCO2 at Patient Temp 37 mmHg (35-46) Arterial Blood pO2 at Patient Temp 82 mmHg (65-108) Arterial Blood HCO3 26 mmol/L (21-28) Arterial Blood Base Excess 2 mmol/L (-3-3) FiO2 50 Brief hospital course Brief hospital course This 82-year-old male was seen by Dr. Barraza yesterday and underwent a chemical stress test. I spoke to Dr. Barraza yesterday because it was not clear if the patient has been taking amiodarone. Apparently, Dr. Linares had told him in 03/2018 that he should stop amiodarone; however, as per our office records and subsequent hospitalizations, he is supposed to be taking amiodarone daily. The patient tolerated a chemical stress test and went home and yesterday during the daytime as well as the day before, he has not had any fever, cold, cough, congestion or chills, but last night he woke up being very short of breath, and he became hypoxic and at around 1:45 a.m., he had the symptoms, so he was sent to the Emergency Room where he was noted to be in atrial fibrillation with fast ventricular rate. The patient has a history of atrial fibrillation. He also had an O2 sat of 67% and was placed on BiPAP and then he was admitted to ICU for further evaluation and management. For more details regarding the past history, family history, social history, surgical history and other details, please refer to History and Physical. Because of the low blood pressure, I will keep the diuretics on hold. I will keep amiodarone and other cardiac medications on hold for now until seen by the grape pruner. Consult Dr. David Rangel because of the lactic acidosis and possible lung infection. The patient has been given IV Rocephin and Zithromax. I will keep him off the BiPAP and see if he can eat and keep him on oxygen by nasal cannula. Consult Dr. Trejo for pulmonary evaluation and management. Condition and treatment extensively discussed with the patient and the family in the Intensive Care Unit. Possible pneumonia- WBC count is higher at 17.5. Continue IV Rocephin. Chronic kidney disease- creatinine is 2.4 BUN is 59. Continue amiodarone. Acute on chronic systolic and diastolic congestive heart failure.- In the past patient has responded to IV dobutamine better than diuretics because of her worsening kidney function. Elevated blood sugar.- Start low-dose sliding scale insulin. Clinically improving slowly. New-onset atrial fibrillation. Pacemaker was adjusted yesterday. Device interrogation shows that he has been in sinus rhythm previously. Recheck labs in a.m. Acute on chronic hypercapnic and hypoxic respiratory failure. Continue BiPAP at night and oxygen by nasal cannula during daytime. Clinically improving. In the stay in the hospital patient was treated with IV dobutamine because of the worsening renal failure. Later on he started having atrial fibrillation with a fast" rate and he has been on amiodarone and also is ventricular paced. Patient was seen by the grape pruner who felt that patient needed an care connector. Because of that patient was transferred to [facility] for further evaluation and management. Medications Medications reviewed and reconciled for discharge. Allergy Allergies Coded Allergies Type Severity Reaction Last Updated Verified I S O L A T I O N *CONTACT* Allergy Unknown 03/25/17 Yes No Known Medication Allergies Allergy Unknown 03/25/17 Yes Follow up in 5 days. Comments Discharge Management - 35 minutes. For other details please refer to discharge instructions TOM FOSTER MD Sep 08, 2018 10:11
== END 2018-09-07 15:20 | disposition short-term general hospital (02) | DRG 871 ==
LOC: ER 02:18 → 1 WEST ICU 04:02 → 2 NORTH 09-05 17:40
PROVIDERS: ADMIT Internal Medicine; ATTEND Internal Medicine
PROC: 5A09357 Assistance with Respiratory Ventilation, Less than 24 Consecutive Hours, Continuous Positive Airway Pressure (ICD-10-PCS; 2018-09-04)
PROC: 4B02XTZ Measurement of Cardiac Defibrillator, External Approach (ICD-10-PCS; principal; 2018-09-05)
PROC: 5A09357 Assistance with Respiratory Ventilation, Less than 24 Consecutive Hours, Continuous Positive Airway Pressure (ICD-10-PCS; 2018-09-05)
PROC: 5A09457 Assistance with Respiratory Ventilation, 24-96 Consecutive Hours, Continuous Positive Airway Pressure (ICD-10-PCS; 2018-09-05)
DX: A41.9 Sepsis, unspecified organism (principal); I50.43 Acute on chronic combined systolic (congestive) and diastolic (congestive) heart failure; J96.22 Acute and chronic respiratory failure with hypercapnia; J96.21 Acute and chronic respiratory failure with hypoxia; J18.9 Pneumonia, unspecified organism; I13.0 Hypertensive heart and chronic kidney disease with heart failure and stage 1 through stage 4 chronic kidney disease, or unspecified chronic kidney disease; N17.9 Acute kidney failure, unspecified; E87.2 Acidosis; I47.2 Ventricular tachycardia; J44.1 Chronic obstructive pulmonary disease with (acute) exacerbation; J44.0 Chronic obstructive pulmonary disease with (acute) lower respiratory infection; M19.90 Unspecified osteoarthritis, unspecified site; D72.828 Other elevated white blood cell count; I48.0 Paroxysmal atrial fibrillation; N18.9 Chronic kidney disease, unspecified; E03.9 Hypothyroidism, unspecified; E11.22 Type 2 diabetes mellitus with diabetic chronic kidney disease; E78.00 Pure hypercholesterolemia, unspecified; E78.5 Hyperlipidemia, unspecified; I08.1 Rheumatic disorders of both mitral and tricuspid valves; I25.10 Atherosclerotic heart disease of native coronary artery without angina pectoris; I25.5 Ischemic cardiomyopathy; I27.20 Pulmonary hypertension, unspecified; I45.9 Conduction disorder, unspecified; Z90.49 Acquired absence of other specified parts of digestive tract; Z95.5 Presence of coronary angioplasty implant and graft; Z95.810 Presence of automatic (implantable) cardiac defibrillator; Z79.899 Other long term (current) drug therapy; Z85.038 Personal history of other malignant neoplasm of large intestine; Z87.891 Personal history of nicotine dependence; Z92.21 Personal history of antineoplastic chemotherapy; Z82.49 Family history of ischemic heart disease and other diseases of the circulatory system; Z83.3 Family history of diabetes mellitus
CPT/HCPCS: 36415; 36600; 71045; 80048; 80053; 80061; 82805; 82962; 83605; 83735; 83880; 84145; 84484; 85007; 85025; 87040; 87077; 87205; 87641; 87804; 93005; 94640; 94660; 94760; 96365; 96366; 96367; 96375; J0456; J0696; J1160; J1815; J1940; J2260; J2270; J2405; J2930; J3475; J7040; J7613; J7620; J7644; 99285-25

== ENCOUNTER → 2019-10-01 | Outpatient (CLI) | payer MEDICARE ==
[~2019-10-01] MED LIST changes: +CEFTRIAXONE SODIUM IVP; -DIGO125T PO; +DIGO125T3 PO; -EDOX60TA PO; +EDOX60TA2 PO; +IPRA3AMP29 NEB; -MAGN400T3 PO; +MAGN400T5 PO; +MONT10TA49 PO; -MONT10TA9 PO; -POTA20TA82 PO
[2019-10-01 15:26] LABS: CREATININE 1.6 mg/dL (0.7-1.3); GFR 41.6; POTASSIUM 4.2 mmol/L (3.5-5.1)
== END | disposition home or self-care (01) ==
LOC: SPEC 15:03
PROVIDERS: ATTEND Specialist
DX: I13.0 Hypertensive heart and chronic kidney disease with heart failure and stage 1 through stage 4 chronic kidney disease, or unspecified chronic kidney disease (principal); I50.9 Heart failure, unspecified; N18.9 Chronic kidney disease, unspecified; I25.10 Atherosclerotic heart disease of native coronary artery without angina pectoris
CPT/HCPCS: 36415; 80048